=== PATIENT | female | born 1970 | race Caucasian/White ===

== ENCOUNTER → 2017-12-03 12:15 | Outpatient (CLI) | payer OTHER, SELFPAY ==
--- NOTE | 2017-12-03 12:21 | HPBI_ITS ---
MAMMOGRAPHY - BILATERAL SCREENING REASON FOR EXAM: Female, 47 years old. Routine annual screening examination. PERTINENT HISTORY: Non-contributory. TECHNIQUE: Digital bilateral breast salomon (3D mammographic acquisition) in the CC and MLO projections. 2-D mediolateral oblique (MLO) and craniocaudad (CC) views of both breasts were obtained. CAD: Full Field Digital Mammography with Computer Added Detection was performed. COMPARISON: Comparison is made with prior outside examination dated June 05, 2016. FINDINGS: Breast Composition: The breasts are heterogeneously dense, which may obscure small masses. There are no dominant masses or suspicious calcifications. No other significant abnormalities are identified. There has been no significant change since the prior study. HPBI/SCREENING MAMM (CAD), BILAT IMPRESSION: Stable bilateral screening mammogram. Yearly follow-up mammogram recommended. (A) ASSESSMENT CATEGORY: BIRADS Category 2: Benign. A letter regarding these results will be sent to the patient by the facility within 30 days. Approximately 10% of breast cancers are not detected by mammography. A normal mammogram should not delay biopsy of a clinically suspicious abnormality. [id number] Electronically Signed: Jeffery Heard MD at 13:39 EST Tel [phone], Service support ,
== END ==
PROVIDERS: Family Provider Family Medicine; PCP Family Medicine; Visit Provider Obstetrics & Gynecology
DX: Z12.31 Encounter for screening mammogram for malignant neoplasm of breast (principal)
CPT/HCPCS: 77063; 77067

== ENCOUNTER 2018-01-20 13:00 | Emergency (ER) | payer OTHER, SELFPAY ==
[2018-01-20 13:02] VITALS: BP 145/87; PULSE 92; RESP 17; RESP 19; TEMP 35.8; O2SAT 98; BMI 27.8
[2018-01-20 13:10] VITALS: BP 135/70; PULSE 85; RESP 14; O2SAT 99
--- NOTE | 2018-01-20 13:28 | VDLE_ITS ---
Reason For Study: LEG PAIN RIGHT GSV is normal. CFV is compressible, spontaneous, phasic, competent and demonstrates normal augmentation. FV is compressible, spontaneous, phasic, competent and demonstrates normal augmentation. POP V is compressible, spontaneous, phasic, competent and demonstrates normal augmentation. T/P Trunk is compressible. PTV is compressible. RT PerV is compressible. Hypoechoic structure noted medial calf extending from knee to distal calf. Non- vascular. Procedure Exam performed portable in ED. A preliminary report was called and/or faxed to Dr. Marin. Interpretation Summary There is no evidence of right lower extremity deep vein thrombosis. Right greater saphenous vein appears patent and compressible segmentally. Cystic, long, non-vascular structure extending from the medial knee to the distal calf. Ordering Physician: Tai Krishnan Referring Physician: SKYLAR Painting M.D. Performed By: Renata Valentino RVT
--- NOTE | 2018-01-20 14:49 | ED.VISSUMM ---
- ER Visit Summary Date of Service: 01/20/18 Chief Complaint: Right calf pain History of Present Illness: The patient is a 47 F presenting for evaluation secondary to right calf pain. Patient states that over the course of the last day she has noticed pain and swelling in her right calf. Patient has an underlying history rheumatoid arthritis, used to be on multiple medications, and actually took herself off of medications back last May. She states she was doing extremely well, and actually has an appointment coming up with her nurse emergency room tomorrow. Patient states that there was no injury associated with this and she denies any chest pain or shortness of breath but she did have a history of travel to and from [place] earlier in December. Patient states that her coworkers were concerned about the possibility of DVT she denies any other risk factors. Physical Examination: Vital signs within normal limits. Well-nourished female no acute distress. Heart regular rate and rhythm no murmurs normal S1 and S2. Lungs sounds clear to auscultation bilaterally. Abdomen soft. Lower extremity exam shows active full range of motion of bilateral lower extremities normal sensation over all dermatomes 2+ DP and PT pulses that are bilaterally symmetric. There is right-sided medial calf tenderness palpation with the compartment being soft but slightly swollen compared to the contralateral side. No overlying skin changes. Test Results: Duplex ultrasound shows no evidence DVT. Does show a mild fluid collection emanating from the knee going down the medial calf Emergency Department Course and Treatment: Patient presented secondary to medial calf pain and swelling. She did have recent travel she had some risk factor for DVT duplex ultrasound was negative did show fluid collection. 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 She has no signs or symptoms of infection or myositis I believe that she safely can be discharged for follow-up with rheumatology as scheduled tomorrow. Disposition: Discharge Impression: 1. Right calf pain likely due to complicated Perez's cyst This note was generated with [employer] dictation software. It may contain incorrect words, spelling, and punctuation that were not noted in review of the chart prior to signing ED Disposition - Plan for ED Patient: Disposition: Home or Assisted Living Chief Complaint: Lower Extremity Injury Diagnosis: Right calf pain Instructions: ED Cyst Perez Referrals: Colin Painting III, MD [Primary Care Provider] - As Needed
--- NOTE | 2018-01-20 14:53 | ED.DCSUM_ITS ---
- ER Visit Summary Date of Service: 01/20/18 Chief Complaint: Right calf pain History of Present Illness: The patient is a 47 F presenting for evaluation secondary to right calf pain. Patient states that over the course of the last day she has noticed pain and swelling in her right calf. Patient has an underlying history rheumatoid arthritis, used to be on multiple medications, and actually took herself off of medications back last May. She states she was doing extremely well, and actually has an appointment coming up with her nanotechnician tomorrow. Patient states that there was no injury associated with this and she denies any chest pain or shortness of breath but she did have a history of travel to and from [place] earlier in December. Patient states that her coworkers were concerned about the possibility of DVT she denies any other risk factors. Physical Examination: Vital signs within normal limits. Well-nourished female no acute distress. Heart regular rate and rhythm no murmurs normal S1 and S2. Lungs sounds clear to auscultation bilaterally. Abdomen soft. Lower extremity exam shows active full range of motion of bilateral lower extremities normal sensation over all dermatomes 2+ DP and PT pulses that are bilaterally symmetric. There is right-sided medial calf tenderness palpation with the compartment being soft but slightly swollen compared to the contralateral side. No overlying skin changes. Test Results: Duplex ultrasound shows no evidence DVT. Does show a mild fluid collection emanating from the knee going down the medial calf Emergency Department Course and Treatment: Patient presented secondary to medial calf pain and swelling. She did have recent travel she had some risk factor for DVT duplex ultrasound was negative did show fluid collection. 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 She has no signs or symptoms of infection or myositis I believe that she safely can be discharged for follow-up with rheumatology as scheduled tomorrow. Disposition: Discharge Impression: 1. Right calf pain likely due to complicated Perez's cyst This note was generated with [employer] dictation software. It may contain incorrect words, spelling, and punctuation that were not noted in review of the chart prior to signing ED Disposition - Plan for ED Patient: Disposition: Home or Assisted Living Chief Complaint: Lower Extremity Injury Diagnosis: Right calf pain Instructions: ED Cyst Perez Referrals: Colin Painting III, MD [Primary Care Provider] - As Needed
== END 2018-01-20 15:04 | disposition home or self-care (01) ==
PROVIDERS: Emergency Provider Emergency Medicine; Family Provider Family Medicine; PCP Family Medicine
DX: M71.21 Synovial cyst of popliteal space [Baker], right knee (principal); M06.9 Rheumatoid arthritis, unspecified; Z79.52 Long term (current) use of systemic steroids
CPT/HCPCS: 93971; 99282

== ENCOUNTER → 2018-11-29 16:26 | Outpatient (CLI) | payer OTHER, SELFPAY ==
[2018-11-29 13:39] VITALS: BMI 27.8
[2018-12-03 20:47] LABS: HPV APTIMA, High Risk Negative (Negative)
== END ==
PROVIDERS: Referring Provider Nurse Practitioner Women's Health; Visit Provider Nurse Practitioner Women's Health
DX: Z12.4 Encounter for screening for malignant neoplasm of cervix (principal)
CPT/HCPCS: 87624; 88175; G0145

== ENCOUNTER → 2018-12-06 13:54 | Outpatient (CLI) | payer OTHER, SELFPAY ==
[2018-11-29 13:39] VITALS: BMI 27.8
--- NOTE | 2018-12-06 13:58 | BI_ITS ---
MAMMOGRAPHY - BILATERAL DIAGNOSTIC REASON FOR EXAM: Female, 48 years old. Palpable abnormality retroareolar region of the right breast. PERTINENT HISTORY: Non-contributory. TECHNIQUE: Digital bilateral breast salomon (3D mammographic acquisition) in the CC and MLO projections. 2-D mediolateral oblique (MLO) and craniocaudad (CC) views of both breasts were obtained. CAD: Full Field Digital Mammography with Computer Added Detection was performed. COMPARISON: Comparison is made with prior mammogram dated December 03, 2017. FINDINGS: Breast Composition: The breasts are heterogeneously dense, which may obscure small masses. 1 segment, there is evidence of a femoral glandular tissue in both retroareolar region slightly asymmetrical on the right side. With the patient's history of a palpable abnormality in the right breast, correlation with ultrasound is recommended. No other significant abnormalities are identified. BI/DIAG MAMM W/CAD, BILAT IMPRESSION: Dense retroareolar region of the right breast. Correlation with ultrasound is recommended. ASSESSMENT CATEGORY: BIRADS Category 0: Incomplete. Need additional imaging evaluation. A letter regarding these results will be sent to the patient by the facility within 30 days. Approximately 10% of breast cancers are not detected by mammography. A normal mammogram should not delay biopsy of a clinically suspicious abnormality. Electronically Signed: Jeffery Heard MD at 15:48 EST , Service support ,
--- NOTE | 2018-12-06 13:58 | US_ITS ---
STUDY: ULTRASOUND BREAST - RIGHT REASON FOR EXAM: Female, 48 years old. Palpable lump in the right breast. TECHNIQUE: Axial and longitudinal images of the RIGHT breast were performed with a high resolution ultrasound transducer. COMPARISON: Comparison is made with prior mammogram done earlier in the day. FINDINGS: RIGHT Breast: The palpable abnormality corresponds to a 6 mm x 12 mm x 12 mm hypoechoic irregular nodule in the retroareolar region of the breast. A biopsy is recommended. US/Breast Limited Unilateral IMPRESSION: The palpable abnormality corresponds to a 6 mm x 12 mm x 12 mm irregular hypoechoic solid nodule. A biopsy is recommended. ASSESSMENT CATEGORY: BIRADS Category 5: Highly Suggestive of Malignancy - Appropriate Action Should Be Taken. A letter regarding these results will be sent to the patient by the facility within 30 days. Electronically Signed: Jeffery Heard MD at 15:47 EST , Service support ,
== END ==
PROVIDERS: Referring Provider Nurse Practitioner Women's Health; Visit Provider Nurse Practitioner Women's Health
DX: N63.10 Unspecified lump in the right breast, unspecified quadrant (principal)
CPT/HCPCS: 76642; 77062; 77066; G0279

== ENCOUNTER → 2018-12-13 14:15 | Outpatient (CLI) | payer OTHER, SELFPAY ==
--- NOTE | 2018-12-13 | IMM_PTH ---
PATIENT: THUY PATTERSON LOC: [facility] U#:[id number] AGE/SX: 55/F ROOM: RE12/13/[address]: Dr. Travis Painting MD : 1970 BED: DIS: SPEC #: [id number] RECD: 12/14/18 14:03 STATUS: ROBBY REQ #: [id number] VADIM: 12/13/18 00:[address]: Travis Painting DEPT: IMMUNOHISTOCHEMISTRY RECD BY: April Ewing ENTERED: 12/14/18 14:05 SP TYPE: IMMUNO OTHR DR: No Primary Care Phys Tissues: Right breast, NOS Procedures: CALPONIN-1 (add) CK5-6 (add) CK8 (add) E-CAD (add) HER2 REGI (add) KI-67 (add) P53 (add) CO (add) IN SITU HYBRIDIZATION P40 (add) ER (initial) PHYSICIAN & INSTITUTION [address] [address] SPECIMEN INFORMATION: Tissue Source: Right breast Clinical Info: Abnormal right breast ultrasound Specimen Number: [id number] CPT code: 06589, 88553 x6, 11201 x3 METHODOLOGY: Deparaffinized sections of prefer/formalin-fixed tissue or PAP/DQ stained slides are incubated with monoclonal/polyclonal antibodies/oligonucleotide probes. Localization is made via biotin free immunoperoxidase method. Appropriate controls are performed and reacted as expected. Results on target cell population are indicated in the following table: RESULTS: ANTIBODY / CLONE RESULT E-Cad (ECH-6) positive, focal CK8 (72rituS36) positive CK5-6 (D5 & 1684) negative Ki-67 (30-9) positive, low P53 (DO-7) negative P40 (BC28) negative Calponin-1 (UH151F) negative MORPHOMETRIC ANALYSIS ER (clone 6F11) >95%, moderate CO (clone 16/1E2) 24%, weak Her-2Neu (clone CB11) 2+ The prognostic test for HER2 is performed on formalin-fixed paraffin embedded tissue. A 3+ (positive) staining pattern is defined as intense, homogeneous, complete, circumferential membranous staining in >10% of contiguous tumor cells. A similar weak (2+) staining pattern is interpreted as equivocal. LEIDY follow-up testing is recommended for all equivocal cases. Positivity/negativity for ER/CO is reported if > or < 1% of the tumor cells are immuno- reactive, respectively. The ASCO/CAP criteria is used for scoring. Reference: Journal of Clinical Oncology, 2013; 31:1720-3467 & 2010; 16:4284-8619. Duration of fixation: 7.5 Hrs; Sample Adequate: Yes. These assays have not been validated on decalcified tissues. Results should be interpreted with caution given the likelihood of false negativity on decalcified specimens. These tests were developed and their performance characteristics determined by [facility]. They may not have been cleared or approved by the U.S. Food and Drug Administration. The FDA has determined that such clearance or approval is not necessary. 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 Positive for estrogen receptors (favorable prognostic indicator). Positive for progesterone receptors (favorable prognostic indicator). Equivocal for overexpression of TAA8efg. SJ:jeromy 12/15/18 ADDENDUM ADDENDUM ADDENDUM ADDENDUM ADDENDUM ADDENDUM ADDENDUM ADDENDUM ADDENDUM ADDENDUM ADDENDUM ADDENDUM ADDENDUM ADDENDUM ADDENDUM ADDENDUM ADDENDUM ADDENDUM ADDENDUM ADDENDUM ADDENDUM ADDENDUM ADDENDUM 12/16/2018 12:08 ADDENDUM 12/16/2018 12:08 ADDENDUM 12/16/2018 12:08 ADDENDUM 12/16/2018 12:08 ADDENDUM 12/16/2018 12:08 IN SITU HYBRIDIZATION (LEIDY) FOR HER2 Interpretation: Not Amplified HER2 : CEP-17 Ratio: 1.3 Average HER2 Signal: 2.1 Average CEP-17 Signal: 1.65 Number of Tumor Cells Scanned: 50 Interpretative Information: The INFORM HER2 Dual LEIDY DNA Probe Cocktail assay is performed on formalin-fixed paraffin embedded tissue and determines HER2 gene status by detecting HER2 copies via silver in situ hybridization (SISH) and Chromosome 17 copies via chromogenic red in situ hybridization on tumor cells. A minimum of 20 cells representing > 10% of contiguous and homogeneous invasive tumor cells were analyzed. HER2 gene status is classified as Non-amplified (HER2/Chr17 ratio < 2.0) or Amplified (HER2/Chr17 ratio greater than or equal to 2.0). If the resulting HER2/Chr17 ratio falls within 1.8 - 2.2 (Borderline), retesting by FISH is recommended. Reference: Josefina AC, Ruben EDGAR, Link DG, et al: Recommendations for Human Epidermal Growth Factor Receptor 2 Testing in Breast Cancer: [place] [employer] / [employer] Clinical Practice Guideline Update. J Clin Oncol 31:9391-2327, 2013. SJ:jeromy 12/16/18
--- NOTE | 2018-12-13 13:20 | BRBX_PTH ---
PATIENT: THUY PATTERSON [facility] U#:[id number] AGE/SX: 55/F ROOM: RE12/13/[address]: Dr. 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 See comment. KAYLEE:jeromy 12/14/18 COMMENT Immunohistochemistry ([id number]) supports the above diagnosis. ER/MS/Ecw9gdv studies are being performed on sections of tumor and the results from this study will be reported separately ([id number]). MICROSCOPIC DESCRIPTION Slides are reviewed. GROSS DESCRIPTION Received in fixative is one container labeled with the patient's name and designated right breast. The specimen consists of two elongated fragments of devries soft tissue each measuring 1 cm in length and 0.1 cm in diameter. The specimen is totally submitted in one cassette. / KAYLEE:jeromy 12/13/18 TC:0 CPT: 39443
[2018-12-13 13:30] VITALS: BMI 27.8
== END ==
PROVIDERS: Referring Provider Surgery; Visit Provider Surgery
DX: R92.8 Other abnormal and inconclusive findings on diagnostic imaging of breast (principal)
CPT/HCPCS: 88305; 88341; 88342; 88368

== ENCOUNTER 2018-12-28 08:24 | Day surgery (SDC) | payer OTHER, SELFPAY ==
[2018-12-15 14:07] VITALS: BMI 27.8
--- NOTE | 2018-12-28 | AXNB_PTH ---
PATIENT: THUY PATTERSON [place]: [facility] [place][id number] AGE/SX: 48/F ROOM: RE12/28/[address]: Dr. Travis Painting MD : 1970 BED: DIS: 12/28/2018 SPEC #: [id number] RECD: 12/28/18 11:55 STATUS: ROBBY JENNA #: [id number] VADIM: 12/28/18 00:[address]: Travis Painting DEPT: SURGICAL PATHOLOGY RECD BY: April Ewing ENTERED: 12/28/18 12:59 SP TYPE: AX NODE BX OTHR DR: No Primary Care Phys Tissues: A - Axillary lymph node, NOS B - Right breast, NOS C - Axillary tail of breast D - Right breast, NOS Procedures: Frozen Section (charge) Frozen Section Add'l ([facility]) Surgery Specimen Level IV Surgery Specimen Level V HEADER OPERATION: Right breast ultrasound wire-localized lumpectomy, right axillary dissection PRE-OP DIAGNOSIS: Malignant neoplasm of central portion of right breast TISSUE SUBMITTED: A - [place] lymph nodes, right - sent to lab for frozen at 1150, B - Right breast lumpectomy - sent to lab for margins at 1209, long blue suture - anterior, long black suture - lateral (wire also lateral), short black suture - superior, C - Right axillary dissection, D - Re-excision inferior margin right breast, suture serrato new margin FROZEN SECTION DIAGNOSIS A. Right axillary sentinel lymph nodes, biopsy: Two out of two lymph nodes positive for macrometastatic carcinoma. AM:jeromy 12/28/18 MICROSCOPIC DIAGNOSIS A. Right axillary lymph nodes, biopsy: Two out of two lymph nodes, positive for metastatic carcinoma. See comment. B. 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 See cancer summary below. C. Right axillary dissection: Three out of eight lymph nodes, positive for metastatic carcinoma. See comment. D. Re-excision inferior margin: Negative for carcinoma. SJ:jeromy 12/30/18 INVASIVE BREAST CANCER SUMMARY: (Including specimens A to D) Specimen - partial breast Procedure - excision with wire-guided localization Lymph node sampling - sentinel lymph node and axillary dissection Specimen integrity - multiple designated specimens (specimen B & D) Specimen size - lumpectomy specimen 4.5 x 3.5 x 3 cm Re-excision inferior margin - 5 x 3 x 1 cm Specimen laterality - right Tumor site - central portion of the right breast as per clinical information. Tumor size - 1.5 x 1.5 x 1.2 cm Tumor focality - single focus of invasive carcinoma Macroscopic and Microscopic extent of tumor: Skin - not present Nipple - not applicable Skeletal muscle - not present Ductal carcinoma in situ (DCIS) - no DCIS is present. Lobular carcinoma in situ (LCIS) - present Histologic type of invasive carcinoma - invasive carcinoma with ductal and lobular features (mixed type carcinoma). Histologic Grade (Karine grade): Glandular/tubular differentiation - score 3 Nuclear pleomorphism - score 3 Mitotic count - score 1 Overall grade - 2 (score of 7) Margins - Margins uninvolved by invasive carcinoma. The invasive carcinoma and lobular carcinoma in situ is 0.2 cm away from the inferior margin in lumpectomy specimen. Re-excision inferior margin measures 1 cm in thickness, overall the tumor is about 1.2 away from the inferior margin. The invasive carcinoma and lobular carcinoma in situ is 0.1 cm away from the anterior margin in lumpectomy specimen. Treatment effect: Response to presurgical (neoadjuvant) therapy - no known presurgical therapy. Lymph-Vascular invasion - not identified Dermal lymph-vascular invasion - not applicable Lymph nodes: Number of sentinel lymph nodes examined - 2 Total number of lymph nodes examined (sentinel and nonsentinel) - 10 Number of lymph nodes with macrometastases - 5 Number of lymph nodes with micrometastases and isolated tumor cells - 0 Size of largest metastatic deposit - 1.1 x 1.0 cm (measured microscopically). Extranodal extension - present, focal Method of evaluation of sentinel lymph nodes - H & E and multiple levels. Distant metastasis - not applicable Additional pathologic findings - extensive dense fibrosis and intraductal hyperplasia. Ancillary studies - previously performed on section of tumor ([id number] / [id number]). ER - positive (>95%, moderate) IN - positive (24%, weak) Her2 izzy - equivocal (2+) Her2 by dual LEIDY - negative/not amplified Microcalcifications - not identified Clinical history - Please make reference to previous specimen ([id number]) right breast tissue, core biopsy with diagnosis of invasive mammary carcinoma with ductal and lobular features. PATHOLOGIC STAGE: pT1c pN2a Mx The above summary is in compliance with [employer] (CAP) Cancer Protocols Checklist and [place] [employer] Committee on Cancer (AJCC), Staging Manual, 8th Ed. COMMENT A. The largest focus of metastatic deposit measures 1.1 x 1 cm, measured microscopically. Focal minimal extranodal extension is noted. B. Immunohistochemistry ([id number]) supports the diagnosis of invasive carcinoma with mixed ductal and lobular features and lobular carcinoma in situ. The tumor predominantly consists of invasive lobular carcinoma (>95%), pleomorphic variant. C. The largest focus of metastasis measures 0.8 x 0.7 cm, measured microscopically. Extranodal extension is not seen. Immunohistochemistry ([id number]) supports the above diagnosis. Case has been reviewed in consultation with Dr. Feliz who concurs with the above diagnosis. IDC:AM MICROSCOPIC DESCRIPTION Slides are reviewed. GROSS DESCRIPTION A - Received fresh for frozen section diagnosis labeled with the patient's name is a specimen designated sentinel lymph node. The specimen consists of a piece of adipose tissue containing two nodules measuring 3.5 x 2.5 x 0.6 cm. Two nodules consistent with lymph nodes are identified measuring 1 and 1.5 cm in greatest dimension. The entire specimen is submitted in four cassettes as follows: 1 - frozen section, one-half smaller lymph node, 2 - frozen section, one-half larger lymph node, 3 - rest of the smaller lymph node, 4 - rest of the larger lymph node. / AM:jeromy 12/29/18 B - Received fresh for frozen section diagnosis labeled with the patient's name is a specimen designated right breast lumpectomy. The specimen consists of a piece of fibroadipose tissue weighing 20.4 gm and measuring 4.5 x 3.5 x 3 cm. The specimen is oriented as follows: long blue - anterior, long black - lateral, wire also lateral, short black - superior. The specimen is inked as follows: anterior - yellow, posterior - black, superior - blue, inferior - green, medial - red and lateral - orange. The specimen is serially sectioned and reveals a devries, indurated mass measuring 1.5 x 1.5 x 1.2 cm. This mass is 0.2 cm away from the closest inferior margin. This information is conveyed to the surgeon intraoperatively. Initial processing of the specimen is done by Dr. Feliz. The entire specimen is submitted in 15 cassettes. Cassettes 2 to 7 contain the tumor with surrounding tissue including closest margin. / :jeromy 12/29/18 C - Received in fixative is one container labeled with the patient's name and designated right axillary dissection. The specimen consists of two pieces of yellow adipose tissue measuring in aggregate 7 x 6 x 2 cm. Multiple lymph nodes are identified. The largest lymph node measures 1.5 cm in greatest dimension. The lymph nodes are submitted in entirety in six cassettes as follows: 1 - one bisected lymph node, 2 - one bisected lymph node (cassettes 1 & 2 contains the lymph nodes present in the smaller piece of tissue), 3 - one serially sectioned lymph node, largest lymph node, 4 - one bisected lymph node, 5 - one bisected lymph node, 6 - three lymph nodes. / SJ:jeromy 12/29/18 D - Received in fixative is one container labeled with the patient's name and designated re-excision inferior margin right breast, suture serrato new margin. The specimen consists of a piece of fibroadipose tissue measuring 5 x 3 x 1 cm. The new margin is identified by a suture. This margin is inked black and opposite side is inked blue. Sections do not reveal any mass lesion. The entire specimen is submitted in five cassettes. / :jeromy 12/29/18 TC:0 CPT: 44670, 43974 x3, 20452, 42648, 48281 ADDENDUM ADDENDUM ADDENDUM ADDENDUM ADDENDUM ADDENDUM ADDENDUM ADDENDUM ADDENDUM ADDENDUM ADDENDUM ADDENDUM ADDENDUM ADDENDUM 01/26/2019 10:10 ADDENDUM 01/26/2019 10:10 ADDENDUM 01/26/2019 10:10 ADDENDUM 01/26/2019 10:10 ADDENDUM 01/26/2019 10:10 This addendum is added to incorporate an outside pathology consultation report. The case was examined at [facility] (#[id number]) and the following diagnosis was rendered. A. Right axillary sentinel lymph nodes, excision: Two lymph nodes with metastatic carcinoma. B. Right breast, lumpectomy: Invasive carcinoma with ductal and lobular features and lobular carcinoma in situ. C. Right axilla, dissection: Three of eight lymph nodes with metastatic carcinoma. Please see complete above mentioned consultation report in EMR
--- NOTE | 2018-12-28 | IMM_PTH ---
PATIENT: THUY PATTERSON LOC: [facility] – [place] U#:[id number] AGE/SX: 48/F ROOM: RE12/28/[address]: Dr. Travis Painting MD : 1970 BED: DIS: 12/28/2018 SPEC #: [id number] RECD: 12/30/18 13:14 STATUS: ROBBY RELencho #: [id number] VADIM: 12/28/18 00:[address]: Travis Painting DEPT: IMMUNOHISTOCHEMISTRY RECD BY: April Ewing ENTERED: 12/30/18 13:16 SP TYPE: IMMUNO OTHR DR: No Primary Care Phys Tissues: B - Right breast, NOS C - Axillary lymph node, NOS Procedures: CK8 (initial) CALPONIN-1 (add) CK7 (add) CK8 (add) E-CAD (add) Pankeratin (initial) Pankeratin (add) P40 (add) PHYSICIAN & INSTITUTION [place] [id number] SPECIMEN INFORMATION: Tissue Source: B - Right breast lumpectomy, C - Right axillary dissection Clinical Info: Malignant neoplasm of right breast Specimen Number: [id number] B3, B4, C1-C6 CPT code: 13990 x2, 43907 x18 METHODOLOGY: Deparaffinized sections of prefer/formalin-fixed tissue or PAP/DQ stained slides are incubated with monoclonal/polyclonal antibodies/oligonucleotide probes. Localization is made via biotin free immunoperoxidase method. Appropriate controls are performed and reacted as expected. Results on target cell population are indicated in the following table: RESULTS: ANTIBODY / CLONE RESULT Block B3 CK8 (55cepbV20) positive E-Cad (ECH-6) negative * P40 (BC28) negative Calponin-1 (ER583D) negative *?positive focally in invasive ductal carcinoma Block B4 CK8 ([id number]) positive E-Cad (ECH-6) negative P40 (BC28) negative Calponin-1 (DL426Z) negative positive in the area of lobular carcinoma in situ Block C1 AE1-3 (AE1/AE3/PCK26) negative CK7 (OV-TL12/30) negative Block C2 AE1-3 (AE1/AE3/PCK26) negative CK7 (OV-TL12/30) negative Block C3 AE1-3 (AE1/AE3/PCK26) positive CK7 (OV-TL12/30) positive Block C4 AE1-3 (AE1/AE3/PCK26) positive CK7 (OV-TL12/30) positive Block C5 AE1-3 (AE1/AE3/PCK26) negative CK7 (OV-TL12/30) negative Block C6 AE1-3 (AE1/AE3/PCK26) positive CK7 (OV-TL12/30) positive These tests were developed and their performance characteristics determined by [facility]. They may not have been cleared or approved by the U.S. Food and Drug Administration. The FDA has determined that such clearance or approval is not necessary. INTERPRETATION: B. Right breast lumpectomy: Invasive carcinoma with ductal and lobular features (mixed type carcinoma). See comment. - lobular carcinoma in situ. C. Right axillary dissection: Three out of eight lymph nodes positive for metastatic carcinoma. SJ:jeromy 12/31 Comment: The tumor predominantly consists of lobular carcinoma (>95%). Case has been reviewed in consultation with Dr. Feliz who concurs with the above diagnosis. IDC:AM
--- NOTE | 2018-12-28 08:00 | NM_ITS ---
PROCEDURE: NUCLEAR MEDICINE Injection [place] Node - RIGHT breast(s). REASON FOR EXAM: Female, 48 years old. Right breast cancer. TECHNIQUE: [place] node localization using radionuclide methods of the RIGHT breast(s) was performed following subcutaneous administration of 1.2 mCi of of sulfur colloid Tc-99m. FINDINGS: 1.2 mCi of technetium labeled sulfur colloid was injected in 4 equal aliquots subcutaneously in the slightly inferior lateral aspect of the right breast. NM/Lymph Node Injection Only IMPRESSION: Subcutaneous injection of 1.2 mCi of technetium labeled sulfa colloid for sentinel node imaging. Electronically Signed: Jeffery Heard, at 9:57 EDT , Service support ,
[2018-12-28 09:00] VITALS: BP 122/95; PULSE 79; RESP 18; TEMP 36.9; O2SAT 100; BMI 24.2
--- NOTE | 2018-12-28 10:39 | PCM.DC.BS ---
Discharge Diet: No Restrictions Discharge Activity: May Not Drive - for 2-3 days or while taking narcotic pain meds. May shower in (days): 5 Lifting Restrictions: 10 pounds for 1 week. Call your doctor if your incision/area has: Continuous Slow Oozing, Sudden Increased Bleeding Call your doctor if you observe: Fever of 101 or Higher Suture Line Care: Avoid Pulling/Pushing, Avoid Pinching/Bending Remove Dressing in (days):: 1 - Drain care as instructed. Empty and measure and record output. You may not shower until the drain is removed Additional Dressing/Incision Instructions:: Remove bulky dressing tomorrow. May leave any opsite dressing for 3 days. May remove the steri strips after one week please. Please clean the drain site daily with a Q-tip and peroxide and subsequently apply dry gauze and tape Allergies/Adverse Reactions: Allergies No Known Allergies Allergy (Verified 12/27/18 13:46) Medications to take at Discharge prednisone 10 mg tablet 5 mg PO DAILY 11/02/17 calcium carbonate 600 mg calcium (1,500 mg) tablet 600 mg PO DAILY tab 11/29/18 certolizumab pegol 400 mg/2 mL (200 mg/mL x2) subcutaneous syringe kit 400 mg SC Q2W 11/29/18 leflunomide 20 mg tablet 20 mg PO DAILY 11/29/18 multivitamin tablet 1 tab PO DAILY 11/29/18 Hydrocodone Bitart/Apap 5-325 [[place] 5MG-325MG] 1 tablet PO Q4H PRN PRN 2 Days #8 tablet 12/28/18 The following prescriptions were given: Hydrocodone Bitart/Apap 5-325 [[place] 5MG-325MG] 1 tablet PO Q4H PRN PRN 2 Days #8 tablet PRN Reason: Pain Primary Care Physician: Care Physician,No Primary [Primary Care Provider] - Please Follow Up With: Travis Painting MD When: Office appt. Thursday please. [phone]
[2018-12-28] MEDS: Isosulfan Blue 1% 5 ML Vial (11:20)
[2018-12-28] MEDS: Bupivacaine 0.5% PF 10 ML VIAL (13:00)
--- NOTE | 2018-12-28 13:11 | PCM.OPRPT ---
Problem List (1) Breast mass, right Status: Acute Report of Operation Date of Procedure: 12/28/18 Pre-Operative Diagnosis: Upper outer retroareolar right breast invasive ductal and lobular carcinoma Post-Operative Diagnosis: Same plus macro metastatic disease to right axillary sentinel lymph nodes Surgery/Procedure Performed:: Ultrasound-guided wire localization right breast mass. Right axillary Kavon dye and lymphatic tracer sentinel lymph node biopsy with subsequent post pathology conversion to level 1and 2 right axillary lymph node dissection. Wire localized right breast lumpectomy with reexcision of inferior margin Description of Surgical Findings:: 48-year-old female was taken to the operating room. She was placed on the table underwent general anesthesia. The right arm was carefully wrapped with soft roll and placed at right angles to the table. She had already gone radioactive tracer injection per radiology. The right breast was prepped with alcohol and 2-1/2 cc of isosulfan blue dye was injected close to the retroareolar area. Massage was performed for 3 minutes. Then the right breast and axilla were sterilely prepped and draped. An oblique incision was made in the right axilla sharp dissection carried down through the subtenons tissue. Immediately blue dye lymphatic tracking was identified. The neoprobe did not assist with this identification although a bright blue lymph node was identified there was 0 counts on the tracer. I dissected to lymph nodes free submitted those for analysis. I then utilized ultrasound and a 20-gauge Kopans needle to do wire localization of the retroareolar slightly upper outer right breast lesion. The needle was inserted under ultrasound guidance and the wire was displaced. Now a curvilinear incision was made in the upper outer right breast sharp dissection carried down through the substance tissue dissection was performed retrogradely shaving healthy dermal skin of the areola was able to circumferentially dissect completely around the lesion and excise it. The wire exited laterally and I placed a long silk suture laterally. A short silk suture was placed superiorly. The blue Vicryl which I used as a holding suture exited anteriorly. Upon receiving gross analysis of that lumpectomy it was felt to be a 2 mm inferior margin. I elected to re-excise the inferior margin and I did that with electrocautery. I marked the new margin with a silk suture. That lumpectomy site was closed the deep layer of interrupted 4-0 Vicryl. Skin edges proximal running subcuticular 4.0 Monocryl. The 2 sentinel nodes were noted to have a macro metastatic disease completely replacing the nodes. I elected to proceed to a level 1 and 2 axillary lymph node dissection. The incision was slightly lengthened. I dissected through the axillary fascia identified the axillary vein took tissue bounded by the latissimus dorsi and the subscapularis chest wall and the axillary vein. Carefully the tissue was swept inferiorly hemostasis obtained with hemoclips and electrocautery were indicated. The intercostal brachial cutaneous nerve to the upper arm was identified and carefully dissected free and completely preserved. There was some additional lymph nodes located more laterally that were carefully dissected free. These have been adjacent to the original lymph node packet. Hemostasis was then assured. Stab incision was made inferior to the wound and a 10 round MARY drain was exited. It was shortened the length. Was secured to skin with interrupted 3-0 nylon. Was placed to closed bulb suction. That wound was closed with a deep layer of interrupted 3-0 Vicryl and then a running subcuticular 4-0 Monocryl. Steri-Strips and Telfa and OpSite and bulky dry dressings were applied. Sponge and instrument and needle counts were reported to the surgeon to be correct. Specimen includes the right breast lumpectomy specimen with a reexcision of the inferior margin as a separate piece. Specimen includes sentinel lymph nodes x2 followed up by a completion right axillary lymph node dissection. Drain is a 10 round MARY drain to the right axilla. Blood loss minimal. Travis Painting M.D., F.A.C.S. Type of Anesthesia:: General Anesthesiologist: Gabriela Ramirez
[2018-12-28 13:21] VITALS: BP 122/95; BP 93/68; PULSE 73; RESP 16; TEMP 36.3; O2SAT 96
[2018-12-28 13:30] VITALS: BP 122/95; BP 98/63; PULSE 70; RESP 16; O2SAT 95
[2018-12-28 13:45] VITALS: BP 122/95; BP 97/68; PULSE 70; RESP 16; O2SAT 96
[2018-12-28 13:54] VITALS: BP 122/95; BP 98/67; PULSE 72; RESP 16; TEMP 36.2; O2SAT 96
[2018-12-28 15:53] VITALS: BP 100/67; BP 122/95; PULSE 78; RESP 16; TEMP 37.2; O2SAT 97
== END 2018-12-28 15:57 | disposition home or self-care (01) ==
LOC: SDC 08:26 → AC 08:27
PROVIDERS: Referring Provider Surgery; Visit Provider Surgery
PROC: (CPT 19301; principal; 2018-12-28 10:45)
DX: C50.411 Malignant neoplasm of upper-outer quadrant of right female breast (principal); C50.111 Malignant neoplasm of central portion of right female breast; Z17.0 Estrogen receptor positive status [ER+]; Z78.0 Asymptomatic menopausal state; Z79.52 Long term (current) use of systemic steroids; Z79.899 Other long term (current) drug therapy
CPT/HCPCS: 19302; 38792; 88305; 88307; 88331; 88332; 88341; 88342; A9541; J7120; J2405; Q9968

== ENCOUNTER 2019-02-02 11:23 | Day surgery (SDC) | payer OTHER, SELFPAY ==
[2019-02-02 11:45] VITALS: BP 110/69; PULSE 83; RESP 18; TEMP 36.6; O2SAT 99; BMI 24.3
[2019-02-02] MEDS: Cefazolin 2 GM in 0.9% Normal Saline 100 ML IV (14:59)
[2019-02-02] MEDS: Bupivacaine Mpf 0.5% 30 ML VIAL (15:08)
--- NOTE | 2019-02-02 15:37 | PCM.DC.POR ---
Discharge Diet: No Restrictions - Pain medication may cause nausea. You should typically eat light foods as you take your pain medication. Discharge Activity: Return to Normal Activity, May Shower - Leave the bandage on for 2-3 days. When you remove the bandage, leave the steri-strips intact until they fall off. Additional Activity Instructions:: May not drive, work with heavy equipment, or sign legal documents for [address] if you are no longer taking narcotic pain medications. Additional Dressing/Incision Instructions:: Leave the bandage on for 2-3 days. When you remove the bandage, leave the steri-strips intact for one week Allergies/Adverse Reactions: Allergies No Known Allergies Allergy (Verified 02/02/19 11:43) Medications to take at Discharge prednisone 10 mg tablet 5 mg PO DAILY 11/02/17 calcium carbonate 600 mg calcium (1,500 mg) tablet 600 mg PO DAILY tab 11/29/18 multivitamin tablet 1 tab PO DAILY 11/29/18 Primary Care Physician: Care Physician,No Primary [Primary Care Provider] - Test Results: Test results from this visit will be discussed in further detail at your follow-up appointment, if applicable. Please Follow Up With: Travis Painting MD - [phone] When: Further office follow up can be as needed
--- NOTE | 2019-02-02 15:40 | DCINST_ITS ---
Discharge Diet: No Restrictions - Pain medication may cause nausea. You should typically eat light foods as you take your pain medication. Discharge Activity: Return to Normal Activity, May Shower - Leave the bandage on for 2-3 days. When you remove the bandage, leave the steri-strips intact until they fall off. Additional Activity Instructions:: May not drive, work with heavy equipment, or sign legal documents for [address] if you are no longer taking narcotic pain medications. Additional Dressing/Incision Instructions:: Leave the bandage on for 2-3 days. When you remove the bandage, leave the steri-strips intact for one week Allergies/Adverse Reactions: Allergies No Known Allergies Allergy (Verified 02/02/19 11:43) Medications to take at Discharge prednisone 10 mg tablet 5 mg PO DAILY 11/02/17 calcium carbonate 600 mg calcium (1,500 mg) tablet 600 mg PO DAILY tab 11/29/18 multivitamin tablet 1 tab PO DAILY 11/29/18 Primary Care Physician: Care Physician,No Primary [Primary Care Provider] - Test Results: Test results from this visit will be discussed in further detail at your follow- up appointment, if applicable. Please Follow Up With: Travis Painting MD - [phone] When: Further office follow up can be as needed
--- NOTE | 2019-02-02 15:40 | PCM.OPRPT ---
Problem List (1) Breast cancer metastasized to axillary lymph node Status: Acute Qualifiers: Laterality: right Qualified Code(s): C50.911 - Malignant neoplasm of unspecified site of right female breast; C77.3 - Secondary and unspecified malignant neoplasm of axilla and upper limb lymph nodes Report of Operation Date of Procedure: 02/02/19 Pre-Operative Diagnosis: Metastatic right breast cancer Post-Operative Diagnosis: Same Surgery/Procedure Performed:: Left internal jugular 6 Venezuelan power port placement Description of Surgical Findings:: Timeout and informed consent was obtained. 48-year-old female was taken to the operating room placed upon the table. Ancef 2 g were given intravenously. The left neck and chest were sterilely prepped and draped. Under ultrasound guidance the left internal jugular vein was identified. 1% lidocaine mixed 50-50 with 0.5% Marcaine was used as a local anesthetic. Throughout the procedure a total of 80 cc was used. Micropuncture needle was inserted in the left internal jugular vein under ultrasound guidance. Micropuncture wire inserted. A micropuncture sheath inserted. 035 J-wire was inserted. Fluoroscopy demonstrated good positioning of the SVC. Local was instilled down upon the right chest wall. A transverse incision was created. A subcutaneous pocket was created. The tubing was tunneled from the chest to the neck site. Then the 6 [place] sheath dilator was placed over the J-wire. The dilator wire removed. The tubing was advanced through the sheath. The sheath was split. The catheter tubing was positioned at the SVC atrial junction. It was amputated to length connected to the port secured there with a port attachment device. The port was placed in the pocket and secured there with interrupted 2-0 silk. The port site was closed with interrupted 3-0 Vicryl subdermal stitch. The neck site was closed with interrupted 5-0 Vicryl subdermal stitch. The port was accessed with a straight Bal needle. It aspirated easily. It was flushed with saline and then 2 cc of heparinized saline. Steri-Strips Telfa and OpSite dressings applied. Sponge and instrument and needle counts were reported the surgeon be correct. Blood loss was minimal. Specimens none. Drains none. Blood loss minimal. The patient was taken to the recovery area in satisfactory condition without apparent complication. Travis Painting M.D., F.A.C.S. Type of Anesthesia:: Local MAC Anesthesiologist: Gabriela Ramirez
[2019-02-02 15:46] VITALS: BP 100/77; BP 110/69; PULSE 77; RESP 16; TEMP 36.9; O2SAT 97
[2019-02-02 15:50] VITALS: BP 107/79; BP 110/69; PULSE 77; RESP 16; O2SAT 98
[2019-02-02 15:55] VITALS: BP 105/75; BP 110/69; PULSE 71; RESP 16; O2SAT 96
--- NOTE | 2019-02-02 16:00 | RAD_ITS ---
STUDY: X-RAY CHEST REASON FOR EXAM: Female, 48 years old. Left IJ port placement. TECHNIQUE: Single AP portable view of the chest. COMPARISON: None. FINDINGS: There is a left jugular [id number] with its tip in the distal superior vena cava. There is no pneumothorax. The lungs are clear and expanded. There is no demonstrated pleural abnormality. Normal size heart. Normal mediastinum and idalia. Normal visualized pulmonary arteries. Normal visualized aortic arch and descending thoracic aorta. Normal visualized thoracic spine. Normal visualized ribs, clavicles, and shoulders. There is no demonstrated abnormality of the visualized soft tissue structures of the upper abdomen. RAD/Chest 1 View (Portable) IMPRESSION: 1. Left jugular Port-A-Cath without pneumothorax. 2. No acute cardiopulmonary disease. Electronically Signed: Phani Amin DO at 16:12 EDT Tel [phone], Service support ,
[2019-02-02 16:02] VITALS: BP 110/69; BP 111/80; PULSE 74; RESP 16; TEMP 37.1; O2SAT 98
[2019-02-02 16:30] VITALS: BP 110/69
== END 2019-02-02 16:41 | disposition home or self-care (01) ==
LOC: SDC 11:24 → AC 11:25
PROVIDERS: Referring Provider Surgery; Visit Provider Surgery
PROC: (CPT 36561; principal; 2019-02-02 13:15)
DX: Z45.2 Encounter for adjustment and management of vascular access device (principal); C50.911 Malignant neoplasm of unspecified site of right female breast; C77.3 Secondary and unspecified malignant neoplasm of axilla and upper limb lymph nodes; Z79.899 Other long term (current) drug therapy; Z79.52 Long term (current) use of systemic steroids; M06.9 Rheumatoid arthritis, unspecified
CPT/HCPCS: 00532; 36561; 71045; 77001; J7120; J2405

== ENCOUNTER 2019-10-17 05:28 | Day surgery (SDC) | payer OTHER, SELFPAY ==
[2019-09-24 08:43] VITALS: BMI 24.3
[2019-10-17] VITALS (11 sets, daily range): BP systolic 107–124; BP diastolic 76–100; PULSE 70–94; RESP 16; TEMP 36–36.4; O2SAT 93–98; BMI 26.7
[2019-10-17] MEDS: Lactated Ringers 1,000 ML 100 ML IV (05:58)
--- NOTE | 2019-10-17 06:17 | PCM.HP.STD ---
Problem List (1) Screening for intestinal cancer Status: Acute History of Present Illness Date of Admission: 10/17/19 The patient is a 49 year old F who has recently undergone intensive surgical and medical treatment for breast cancer. She has never had a previous screening colonoscopy. She presents for screening exam at this time. She denies bright red blood per rectum or melena. No abdominal pain. There is no family history of colon cancer. Past Medical History Past Medical History (Chronic Problems): Chronic Problems (Last Reviewed 01/26/19 @ 16:05 by Yessi Mcmahon) Rheumatoid arthritis (Chronic) Medical History: Medical History (Last Reviewed 01/26/19 @ 16:05 by Yessi Mcmahon) Breast cancer metastasized to axillary lymph node (Acute) C50.919, C77.3 Rheumatoid arthritis (Chronic) M06.9 Breast cancer, right breast C50.911 Allergies No Known Allergies Allergy (Verified 10/13/19 11:38) Home Medications: Ambulatory Orders Medication Instructions Recorded prednisone 10 mg tablet 2.5 mg PO BID 11/02/17 multivitamin 1 tab PO DAILY 11/29/18 Anastrozole 1 mg PO DAILY 10/13/19 Ferrous Sulfate [Iron] 325 mg PO DAILY 10/13/19 Hydroxychloroquine Sulfate 200 mg PO BID 10/13/19 [Plaquenil] Surgical History: Surgical History (Last Reviewed 01/26/19 @ 16:05 by Yessi Mcmahon) History of tonsillectomy (Acute) Z98.890, Z90.89 Status post right breast lumpectomy Onset Date: ~12/2018 Z98.890 Smoking Status: Never smoker Review of Systems Constitutional: Denies: Anorexia HEENT: Denies: Difficulty Swallowing Cardiovascular: Denies: Chest Pain Gastrointestinal: Denies: Abdominal Pain, Melena VTE Information - Inpt Only VTE Present on Admission: No Patient Problems: Active and Suspected Problems (Last Reviewed 01/26/19 @ 16:05 by Yessi Mcmahon) Screening for intestinal cancer (Acute) - Physical Exam Vitals/I&O's: Vital Signs Temp Pulse Resp BP Pulse Ox 96.8 F L 94 16 107/79 98 10/17/19 05:53 10/17/19 05:53 10/17/19 05:53 10/17/19 05:53 10/17/19 05:53 Oxygen Delivery Method Room Air Weight: 163 lb 5.8 oz Body Mass Index (BMI) 26.7 General: Alert, Oriented x3, Cooperative Oral: Moist Mucosa Lungs: Clear to auscultation Cardiovascular: Regular rate, Regular Rhythm Abdomen: Bowel Sounds Present, Soft, Non Tender, Non-Distended Extremities: No Calf Tenderness Psych/Mental Status: Normal Affect Current Medications Lactated Ringer's () 1,000 mls @ 100 mls/hr IV .Q10H AVRIL Last Admin: 10/17/19 05:58 Dose: 100 mls/hr Documented by: Assessment/Plan All Active Problems (Last Reviewed 01/26/19 @ 16:05 by Yessi Mcmahon) Screening for intestinal cancer (Acute) Breast cancer metastasized to axillary lymph node (Acute) History of tonsillectomy (Acute) Screening for intestinal cancer in the form of colonoscopy with possible biopsy or polypectomy is indicated. The patient presents via our open access program today. I have assisted her with the treatment of her breast cancer. She is aware of the technique, benefit, risk and alternatives. We will proceed as noted. Travis Painting M.D., F.A.C.S.
--- NOTE | 2019-10-17 06:30 | COLBX_PTH ---
PATIENT: THUY PATTERSON LOC: [facility] U#:[id number] AGE/SX: 49/F ROOM: RE10/17/[address]: Dr. Jessika Thompson MD : 1970 BED: DIS: 10/17/2019 SPEC #: [id number] RECD: 10/17/19 10:35 STATUS: ROBBY WEST #: [id number] VADIM: 10/17/19 06:[address]: Travis Painting DEPT: SURGICAL PATHOLOGY RECD BY: Jon Heart ENTERED: 10/17/19 11:15 SP TYPE: COLON BX OT DR: MD Dr. Jessika Sorto III, MD Tissues: Sigmoid colon biopsy Procedures: Surgery Specimen Level IV HEADER OPERATION: Colonoscopy - open access PRE-OP DIAGNOSIS: Screening colonoscopy TISSUE SUBMITTED: Proximal sigmoid biopsy MICROSCOPIC DIAGNOSIS Proximal sigmoid colon, biopsy: Tubular adenoma. AM:jeromy 10/18/19 MICROSCOPIC DESCRIPTION Slides are reviewed. GROSS DESCRIPTION Received in fixative is one container labeled with the patient's name and designated proximal sigmoid biopsy. The specimen consists of multiple irregular fragments of light devries soft tissue that in aggregate measure 1 x 0.5 x 0.1 cm. The specimen is totally submitted in one cassette. / AM:jeromy 10/17/19 TC:5 CPT: 39333
--- NOTE | 2019-10-17 06:49 | OP.COLON_ITS ---
Patient Name: Becky Huffman Procedure Date: 10/17/2019 6:18 AM Date of : 1970 Age: 49 Procedure: Colonoscopy Indications: Screening for colorectal malignant neoplasm Providers: Travis Painting MD Referring MD: Colin Painting Iii Medicines: Midazolam 3 mg IV, Meperidine 100 mg IV Patient Profile: Last Colonoscopy: none. The patient's first colonoscopy is today. Complications: No immediate complications. Procedure: Pre-Anesthesia Assessment: - Prior to the procedure, a History and Physical was performed, and patient medications and allergies were reviewed. The patient's tolerance of previous anesthesia was also reviewed. The risks and benefits of the procedure and the sedation options and risks were discussed with the patient. All questions were answered, and informed consent was obtained. Prior Anticoagulants: The patient has taken no previous anticoagulant or antiplatelet agents. ASA Grade Assessment: II - A patient with mild systemic disease. After reviewing the risks and benefits, the patient was deemed in satisfactory condition to undergo the procedure. After I obtained informed consent, the scope was passed under direct vision. Throughout the procedure, the patient's blood pressure, pulse, and oxygen saturations were monitored continuously. The colonoscope was introduced through the anus and advanced to the cecum, identified by appendiceal orifice and ileocecal valve. The colonoscopy was performed without difficulty. The patient tolerated the procedure well. The quality of the bowel preparation was excellent. The ileocecal valve and the appendiceal orifice were photographed. Moderate Sedation: Moderate (conscious) sedation was personally administered by the endoscopist. The following parameters were monitored: oxygen saturation, heart rate, blood pressure, and response to care. Total physician intraservice time was 15 minutes. Scope In: 6:34:56 AM Scope Withdrawal Time 0 hours 6 minutes 38 seconds Scope Out: 6:45:28 AM Total Procedure Duration Time 0 hours 10 minutes 32 seconds Findings: Hemorrhoids were found on perianal exam. A 4 mm polyp was found in the proximal sigmoid colon. The polyp was sessile. The polyp was removed with a cold biopsy forceps. Resection and retrieval were complete. Many diverticula were found in the sigmoid colon. The exam was otherwise without abnormality. Impression: - Hemorrhoids found on perianal exam. - One 4 mm polyp in the proximal sigmoid colon, removed with a cold biopsy forceps. Resected and retrieved. - Diverticulosis in the sigmoid colon. - The examination was otherwise normal. Recommendation: - Discharge patient to home. - Resume previous diet. - Continue present medications. - Repeat colonoscopy in 5 years for surveillance. - Telephone my office for pathology results in 1 week. Procedure Code(s): --- Professional --- 70769, Colonoscopy, flexible; with biopsy, single or multiple 93376, 59, Moderate sedation services provided by the same physician or other qualified health medicare contact specialist performing the diagnostic or therapeutic service that the sedation supports, requiring the presence of an independent trained observer to assist in the monitoring of the patient's level of consciousness and physiological status; initial 15 minutes of intraservice time, patient age 5 years or older Diagnosis Code(s): --- Professional --- Z12.11, Encounter for screening for malignant neoplasm of colon K64.9, Unspecified hemorrhoids D12.5, Benign neoplasm of sigmoid colon K57.30, Diverticulosis of large intestine without perforation or abscess without bleeding CPT copyright 2017 [employer]. All rights reserved. The codes documented in this report are preliminary and upon cableway operator review may be revised to meet current compliance requirements. Travis Painting MD 10/17/2019 6:49:10 AM This report has been signed electronically. Number of Addenda: 0 Note Initiated On: 10/17/2019 6:18 AM
== END 2019-10-17 07:36 | disposition home or self-care (01) ==
LOC: EN 05:28 → AC 05:29
PROVIDERS: Surgery; Family Provider Family Medicine; PCP Family Medicine; Referring Provider Family Medicine; Visit Provider Surgery
PROC: 0DJD8ZZ Inspection of Lower Intestinal Tract, Via Natural or Artificial Opening Endoscopic (ICD-10-PCS; CPT 45378; principal; 2019-10-17 06:25)
DX: Z12.11 Encounter for screening for malignant neoplasm of colon (principal); D12.5 Benign neoplasm of sigmoid colon; K64.9 Unspecified hemorrhoids; K57.30 Diverticulosis of large intestine without perforation or abscess without bleeding; C50.911 Malignant neoplasm of unspecified site of right female breast; C77.3 Secondary and unspecified malignant neoplasm of axilla and upper limb lymph nodes; M06.9 Rheumatoid arthritis, unspecified
CPT/HCPCS: 45380; 88305; 99152; 99153; J7120

== ENCOUNTER → 2019-12-19 07:07 | Outpatient (CLI) | payer OTHER, SELFPAY ==
[2019-10-17 05:53] VITALS: BMI 26.7
--- NOTE | 2019-12-19 07:08 | BI_ITS ---
MAMMOGRAPHY - BILATERAL SCREENING REASON FOR EXAM: Female, 49 years old. Routine annual screening examination. PERTINENT HISTORY: Personal history of breast cancer. Prior right lumpectomy with chemotherapy and radiation therapy. TECHNIQUE: Digital bilateral breast misha (3D mammographic acquisition) in the CC and MLO projections. 2-D mediolateral oblique (MLO) and craniocaudad (CC) views of both breasts were obtained. CAD: Full Field Digital Mammography with Computer Added Detection was performed. COMPARISON: Comparison is made with prior examination dated December 06, 2018 and December 03, 2007. FINDINGS: Breast Composition: The breasts are heterogeneously dense, which may obscure small masses. There are no dominant masses or suspicious calcifications. Since prior study, the patient has undergone excisional breast biopsy in the retroareolar region of the right breast. Resultant postoperative scarring as well as periareolar thickening is seen at this time. No other significant abnormalities are identified. BI/SCREEN MAMM (CAD) W/MISHA BILAT IMPRESSION: Status post excisional breast biopsy in the retroareolar region of the right breast with resultant postoperative scarring as well as thickening along the periareolar region. Yearly follow-up mammogram recommended. (A) ASSESSMENT CATEGORY: BIRADS Category 2: Benign. A letter regarding these results will be sent to the patient by the facility within 30 days. Approximately 10% of breast cancers are not detected by mammography. A normal mammogram should not delay biopsy of a clinically suspicious abnormality. [id number] Electronically Signed: Jeffery Heard, at 9:32 EST , Service support ,
[2019-12-20 10:21] LABS: Cancer Antigen 125 10.7 U/mL (0.0-38.1)
== END ==
PROVIDERS: PCP Family Medicine; Referring Provider Obstetrics & Gynecology; Visit Provider Obstetrics & Gynecology
DX: Z12.31 Encounter for screening mammogram for malignant neoplasm of breast (principal); C50.919 Malignant neoplasm of unspecified site of unspecified female breast; C77.3 Secondary and unspecified malignant neoplasm of axilla and upper limb lymph nodes
CPT/HCPCS: 36415; 77063; 77067; 86304

== ENCOUNTER → 2020-01-09 07:50 | Outpatient (CLI) | payer OTHER, SELFPAY ==
[2019-12-20 10:05] VITALS: BMI 26.7
--- NOTE | 2020-01-09 07:50 | US_ITS ---
STUDY: ULTRASOUND OF THE FEMALE PELVIS - COMPLETE REASON FOR EXAM: Female, 49 years old. Positive BRCA gene -- post dustin- LMP: The patient is postmenopausal. TECHNIQUE: Transabdominal and Transvaginal TECHNICAL QUALITY: Adequate. COMPARISON: None. FINDINGS: The uterus is anteverted and is in a midline position. The uterus measures 7.0 cm x 4.3 cm x 3.1 cm. Normal uterine cervix. The endometrium measures 1.8 mm in thickness, and is hyperechoic. There is no demonstrated endometrial mass. There is no demonstrated myometrial mass. I.U.D. - The patient does not have an I.U.D. The right ovary is visualized. The right ovary measures 1 cm x 1 cm x 0.6 cm. There is no right ovarian cyst or ovarian mass. There is no visualized right adnexal mass or complex lesion. There is normal arterial and normal venous vascularity. The left ovary is visualized. The left ovary measures 2.2 cm x 2.3 cm x 1.1 cm. There is no left ovarian cyst or ovarian mass. There is no visualized left adnexal mass or complex lesion. There is normal arterial and normal venous vascularity. There is no fluid in the cul-de-sac. The pre void volume of the bladder was 234 ml. Polycystic ovary disease: No. US/Transvaginal Non- IMPRESSION: Normal female pelvis. Electronically Signed: Jeffery Heard, at 9:22 EDT , Service support ,
--- NOTE | 2020-01-09 07:50 | US_ITS ---
STUDY: ULTRASOUND OF THE FEMALE PELVIS - COMPLETE REASON FOR EXAM: Female, 49 years old. Positive BRCA gene -- post dustin- LMP: The patient is postmenopausal. TECHNIQUE: Transabdominal and Transvaginal TECHNICAL QUALITY: Adequate. COMPARISON: None. FINDINGS: The uterus is anteverted and is in a midline position. The uterus measures 7.0 cm x 4.3 cm x 3.1 cm. Normal uterine cervix. The endometrium measures 1.8 mm in thickness, and is hyperechoic. There is no demonstrated endometrial mass. There is no demonstrated myometrial mass. I.U.D. - The patient does not have an I.U.D. The right ovary is visualized. The right ovary measures 1 cm x 1 cm x 0.6 cm. There is no right ovarian cyst or ovarian mass. There is no visualized right adnexal mass or complex lesion. There is normal arterial and normal venous vascularity. The left ovary is visualized. The left ovary measures 2.2 cm x 2.3 cm x 1.1 cm. There is no left ovarian cyst or ovarian mass. There is no visualized left adnexal mass or complex lesion. There is normal arterial and normal venous vascularity. There is no fluid in the cul-de-sac. The pre void volume of the bladder was 234 ml. Polycystic ovary disease: No. US/Pelvic (Non ) IMPRESSION: Normal female pelvis. Electronically Signed: Jeffery Heard, at 9:22 EDT , Service support ,
== END ==
PROVIDERS: PCP Family Medicine; Referring Provider Obstetrics & Gynecology; Visit Provider Obstetrics & Gynecology
DX: C50.919 Malignant neoplasm of unspecified site of unspecified female breast (principal); C77.3 Secondary and unspecified malignant neoplasm of axilla and upper limb lymph nodes; Z15.01 Genetic susceptibility to malignant neoplasm of breast; Z15.09 Genetic susceptibility to other malignant neoplasm
CPT/HCPCS: 76830; 76856

== ENCOUNTER 2020-02-28 06:55 | Day surgery (SDC) | payer OTHER, SELFPAY ==
[2019-12-19 08:19] VITALS: BMI 26.7
[2020-02-23 14:02] VITALS: BMI 26.7
--- NOTE | 2020-02-23 14:59 | EKG12_ITS ---
Test Reason : PRE-OP Blood Pressure : / mmHG Vent. Rate : 076 BPM Atrial Rate : 076 BPM P-R Int : 120 ms QRS Dur : 076 ms QT Int : 376 ms P-R-T Axes : 053 005 033 degrees QTc Int : 423 ms Normal sinus rhythm with sinus arrhythmia Normal ECG Confirmed by LEWIS HANNAH, BIANCA ([id number]), medical editor CRISTEL JIMENEZ ([id number]) on 02/27/2020 2:44:48 PM Referred By: Nydia Bains Confirmed By:GAYLA SAUCEDO MD
[2020-02-28] VITALS (7 sets, daily range): BP systolic 99–108; BP diastolic 71–79; PULSE 57–71; RESP 14–16; TEMP 36.5–36.7; O2SAT 96–99; BMI 25.9
[2020-02-28 07:17] LABS: Absolute Lymphocyte Count 1.24 X10^3/uL (0.83-4.51); Absolute Neutrophil Count 3.4 X10^3/uL (2.0-7.7); Basophil# 0.05 X10^3/uL; Basophil% 0.9 % (0-1); Eosinophil# 0.07 X10^3/uL; Eosinophils% 1.3 % (0-5); Hematocrit 38.1 % (37-47); Hemoglobin 12.5 g/dL (12.0-15.0); Lymphocyte # 1.24 X10^3/ul (4.0); Lymphocyte % 22.6 % (19-41); Mean Corp Hgb Conc 32.8 g/dL (32-36); Mean Corpuscular Hgb 31.4 pg (27.0-32.0); Mean Corpuscular Volume 95.7 fL (81-99); Mean Platelet Vol. 9.5 fl (6.2-12.0); Monocyte# 0.68 X10^3/uL; Monocyte% 12.4 % (0-10); NRBC Flagged by Analyzer 0 % (0-5); Neutrophil # 3.42 X10^3/uL (2.7-7.7); Neutrophil % 62.4 % (47-70); Platelet Count 229 K/mm3 (150-450); RBC Distribution Width CV 12.8 % (11.6-14.6); RBC Distribution Width SD 44.7 fl (35.1-43.9); Red Blood Count 3.98 M/mm3 (4.2-5.4); White Blood Count 5.5 K/mm3 (4.4-11.0)
[2020-02-28 07:31] LABS: Anion Gap 6 (5-15); BUN 20 mg/dL (7-18); BUN/Creat Ratio 32.3 RATIO (10-20); Chloride 108 mmol/L (98-107); Creatinine, Serum 0.62 mg/dL (0.55-1.02); EST Glomerular Filtration Rate 108 mL/min (>60); Est Glom Filt Rate - Afr Amer 130 mL/min (>60); Estimated Creatinine Clearance 100.49 ml/min; Glucose 89 mg/dL (74-106); Potassium 3.7 mmol/L (3.5-5.1); Sodium Level 140 mmol/L (136-145)
[2020-02-28] MEDS: Lactated Ringers 1,000 ML 100 ML IV ×2 (07:41→09:25)
[2020-02-28] MEDS: Lubricating Jelly 60 GM Tube 30 GM TOPICAL (08:00)
--- NOTE | 2020-02-28 08:11 | PCM.HPOB.BLA ---
- Problem List (1) BRCA gene positive Status: Acute Comment: will discuss fu with oncologist regarding mastectomy. recommend rrBSO. US ordered. BRCA 2, Deleterious mutation PALB2 History and Physical Date of Admission: 02/28/20 Intake Vital Signs 02/23/20 BMI 26.7 02/23/20 Height 5 ft 5.5 in 02/23/20 Weight: 157 lb 02/23/20 BMI 25.7 02/23/20 BP 102/84 H Intake Visit Reasons: pre op LBSO Chief Complaint: pre op LBSO Patient Care Assistant Required: No Is patient in pain?: No Allergies No Known Allergies Allergy (Verified 02/23/20 14:01) Medications prednisone 10 mg tablet 2.5 mg PO BID 11/02/17 [History Confirmed 02/23/20] multivitamin 1 tab PO DAILY 11/29/18 [History Confirmed 02/23/20] Anastrozole 1 mg PO DAILY 10/13/19 [History Confirmed 02/23/20] Ferrous Sulfate [Iron] 325 mg PO DAILY 10/13/19 [History Confirmed 02/23/20] Hydroxychloroquine Sulfate [Plaquenil] 200 mg PO BID 10/13/19 [History Confirmed 02/23/20] leflunomide 10 mg tablet 20 mg PO DAILY 12/19/19 [History Confirmed 02/23/20] Calcium Carbonate/Vitamin D3 [Calcium 500-Vit D3 600 Caplet] 1 ea PO BID 02/21/20 [History Confirmed 02/23/20] Is last menstrual period known: No Post menopausal: No Patient : No : No PFSH Medical History Breast cancer metastasized to axillary lymph node (Acute) Rheumatoid arthritis (Chronic) Breast cancer, right breast (Acute) Surgical History History of tonsillectomy (Acute) Status post right breast lumpectomy (Acute ~12/2018) Family History Son Diabetes Grandfather Heart disease Mother Cancer possible throat cancer (Went through radiation) Father Cancer lung Social History (Updated 02/23/20 @ 14:[address] Nydia Bains MD) Smoking Status: Never smoker alcohol intake: current alcohol intake frequency: holidays/special occasions only substance use type: does not use caffeine: Yes what type of physical activity do you participate in: walking, aerobics frequency: 5-6 times per week seatbelt use: always do you feel safe at home: Yes additional social history: Patient works at [employer] pre op LBSO: Details: THUY PATTERSON is a 49 year old who presents for preop consultation for risk reducing BSO. Female Reproductive History Questions: Metorrhagia: No, Sexually active: No Menopausal Symptoms: No hot flashes, No night sweats, Yes difficulty concentrating, No change in libido Pregancy History 3 Elective abortions Hx Para 2 Spontaneous abortions Hx # Term Pregnancies Ectopic pregnancies Hx # Pregnancies Multiple births # of living children Past Pregnancies Del. Date Name GA/Weeks Outcome Route Bth Weight Gen Labor Lgth Anesthesia Del Locatn Provider FOB Unknown 1995 Leonel Unknown 1998 Dinah ROS Const Constitutional: Denies night sweats Cardio Card: Denies chest pain Resp Resp: Denies cough or dyspnea GI GI: Reports as per HPI; denies abdominal pain, bloating, constipation, nausea or vomiting : Denies hot flashes or nipple discharge Skin Skin/Breast: Denies nipple discharge Psych Psych: Reports difficulty concentrating; denies change in sex drive Exam Const General: cooperative, healthy appearing, comfortable, no acute distress, well developed, well groomed [facility] Head: normal to inspection, normocephalic Ears: hearing grossly normal bilaterally, external ears normal Nose: external nose normal Face and sinus: normal facial exam Neck Neck: normal visual inspection, full ROM, no lymphadenopathy Thyroid: thyroid normal Chest Chest palpation & inspection: normal inspection of the chest Breast inspection: normal inspection of the breasts, normal inspection of the axillae Breast palpation: normal palpation of the breasts, normal palpation of the axillae, no axillary lymphadenopathy Resp Effort & Inspection: normal respiratory effort GI Inspection: normal to inspection, non-distended Palpation: soft, no hepatosplenomegaly, no guarding General: bladder normal to palpation External Female Exam: normal external appearance, normal appearance of the urethra, no lesions Urethra: normal appearance of the urethra Speculum Exam - Vagina: normal appearance of the vagina, normal vaginal discharge Speculum Exam - Cervix: normal appearance of the cervix, no cervical discharge, no lesions, nontender Bimanual Exam- Vagina & Uterus: bladder normal to palpation, No cervical tenderness Bimanual Exam- Adnexa, other: normal adnexae, no adnexal masses, adnexae non-tender Skin General: no rashes or lesions noted Neuro General: alert, moves all extremities, no focal motor deficits Extrem General: normal to inspection, no pedal edema Psych Appearance: grossly normal Mental Status: mental status grossly normal Affect: normal affect Speech and Movement: speech and movement normal Attitude: cooperative Assessment & Plan Problems 1. BRCA gene positive Z15.01; Z15.09 will discuss fu with oncologist regarding mastectomy. recommend rrBSO. US ordered. BRCA 2, Deleterious mutation PALB2 2. Dysthymia F34.1 recommend counseling, discussed medication if needed, consider SSRI Plan After discussing the patient's diagnosis and treatment plan options, patient wishes to proceed with surgical management. I have discussed with the patient the risks, benefits, and alternatives of the procedure which include but are not limited to risks of anesthesia, bleeding, infection, possible damage to bowel, bladder, or surrounding vasculature which could lead to additional surgery to evaluate any complications. Patient agrees to procedure and wishes to proceed. ACOG/uptodate references given for additional information regarding procedure. Coding Level of Care Code No Charge Diagnoses BRCA gene positive Z15.01; Z15.09 Dysthymia F34.1 UPDATE- I have seen the patient and performed any clinically relevant updates to the history and physical exam. Nydia Bains MD
--- NOTE | 2020-02-28 08:11 | PCM.OPRPT ---
Problem List (1) BRCA gene positive Status: Acute Comment: will discuss fu with oncologist regarding mastectomy. recommend rrBSO. US ordered. BRCA 2, Deleterious mutation PALB2 Report of Operation Date of Procedure: 02/28/20 Pre-Operative Diagnosis: BRCA gene positive Post-Operative Diagnosis: Same Surgery/Procedure Performed:: Laparoscopic BSO and cytologic washings Description of Surgical Findings:: nl tubes ovaries and upper abdomen table assembler: Sebastian Pichardo Type of Anesthesia:: General Special Medications: none Specimen's removed: biLateral tubes and ovaries Drains: none Estimated Blood Loss (mL): minimal Fluids Replaced: crystalloid Description of Procedure: Patient was taken in the operating room and was placed under general anesthesia was prepped and draped in normal sterile fashion in the dorsal lithotomy position. Bladder was drained of clear urine and SCDs were on preoperatively. Uterus was sounded and a uterine manipulator was placed after dilating. Attention was then paid to the abdominal portion of the procedure and the umbilicus was elevated with towel clamps and injected with Marcaine and after a 12 mm incision was made and the Veress needle was entered into the abdomen confirmed to be intra-abdominal with a low opening pressure of less than 5 mmHg. Abdomen was insufflated with CO2 gas and a 12 mm optical trocar was placed under direct visualization. A right and left lower quadrant 5 mm ports were placed under direct visualization. pelvic washings collected. Uterus was well visualized and bilateral fallopian tubes and ovaries were identified and the infundibulopelvic ligaments were transected across using the LigaSure device followed by transecting across the mesosalpinx to the attachment to the uterine corpus bilaterally the tubes and ovaries were removed without complication. Excellent hemostasis was noted. Fallopian tubes were removed through the lower port sites without complication. Liver and upper abdomen were visualized notably within normal limits and no other gross abnormalities were seen in the abdomen. All instruments removed from the abdomen after gas was desufflated. Port sites were closed with 3-0 Monocryl Steri's and op sites were applied. All instruments removed from the vagina and patient was awoken and taken recovery in stable condition. Grafts/Implants Used: none - Complications none Multi Select Codes - Urinary/Genital Urinary/Genital CPT Codes: 97696 Laproscopic BS/O
[2020-02-28] MEDS: Bupivacaine 0.25% 30 ML Vial (08:44)
--- NOTE | 2020-02-28 08:45 | FLU_PTH ---
PATIENT: THUY PATTERSON LOC: [facility] [place] U#:[id number] AGE/SX: 49/F ROOM: RE02/28/[address]: Dr. Nydia Bains MD : 1970 BED: DIS: 02/28/2020 SPEC #: [id number] RECD: 02/28/20 15:00 STATUS: ROBBY WEST #: [id number] VADIM: 02/28/20 08:[address]: Nydia Bains DEPT: CYTOLOGY RECD BY: Jon Heart ENTERED: 02/29/20 08:42 SP TYPE: Fluid OTHR DR: Dr. Colin Painting III, MD Tissues: Cytologic material, NOS Procedures: Special Stain Group II Cytospin Fluid HEADER OPERATION: Laparoscopic salpingo-oophorectomy, cytologic washings PRE-OP DIAGNOSIS: BRCA gene positive; sterilization TISSUE SUBMITTED: Cytologic washings DIAGNOSIS CYTOLOGY Cytologic washings (cytospin and cell block): Negative for malignant cells. See comment. 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 CYTOLOGY STUDY Slides are reviewed. CYTOLOGY GROSS Received is 40 ml of colorless hazy fluid labeled with the patient's name and and designated per the requisition as cytologic washings. Submitted for cytology preparation including cell block. / jeromy 02/29/20 TC:5 CPT: 73435, 07501
--- NOTE | 2020-02-28 08:45 | OV_PTH ---
PATIENT: THUY PATTERSON LOC: [facility] [place] U#:[id number] AGE/SX: 49/F ROOM: RE02/28/[address]: Dr. Nydia Bains MD : 1970 BED: DIS: 02/28/2020 SPEC #: [id number] RECD: 02/28/20 08:51 STATUS: ROBBY RELencho #: [id number] VADIM: 02/28/20 08:[address]: Nydia Bains DEPT: SURGICAL PATHOLOGY RECD BY: Jon Heart ENTERED: 02/28/20 10:03 SP TYPE: OVARY OTHR DR: Dr. Colin Painting III, MD Tissues: Ovary, NOS Procedures: Surgery Specimen Level IV HEADER OPERATION: Laparoscopic salpingo-oophorectomy PRE-OP DIAGNOSIS: BRCA gene positive; sterilization TISSUE SUBMITTED: Bilateral ovaries and fallopian tubes MICROSCOPIC DIAGNOSIS Bilateral ovaries and fallopian tubes, bilateral salpingo-oophorectomy: Bilateral fallopian tubes - no pathologic diagnosis. One ovary - focal endometriosis (block 8). Second ovary - no pathologic diagnosis. Paratubal cyst. Clinically, BRCA gene positive. 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 MICROSCOPIC DESCRIPTION Slides are reviewed. GROSS DESCRIPTION Received in fixative is one container labeled with the patient's name and designated bilateral ovaries and fallopian tubes. The specimen consists of bilateral fallopian tubes and ovaries. The fallopian tubes and ovaries are not identified as right or left. One of the fallopian tubes measures 7 cm in length and 0.5 cm in diameter. The fimbrial end is identified. A paratubal cyst is noted measuring 0.8 cm in greatest dimension. The adjacent ovary measures 2.5 x 1.5 x 1 cm. Sections reveal unremarkable cut surfaces. The second fallopian tube is similar in appearance to first one and measures 6 cm in length and 0.6 cm in diameter. The adjacent ovary measures 2.5 x 2 x 1 cm. Sections reveal unremarkable cut surfaces. The entire specimen is submitted in eight cassettes as follows: 1-4 - one fallopian tube and adjacent ovary (1?& 2 - fallopian tube and paratubal cyst, 3 & 4 - ovary), 5-8 - second fallopian tube and adjacent ovary (5 & 6 - fallopian tube and 7 & 8 - ovary). / KAYLEE:jeromy 02/28/20 TC:5 CPT: 61864 x2
--- NOTE | 2020-02-28 08:59 | DCINST_ITS ---
Discharge Diet: No Restrictions - Increase fluid intake for the next 48 hours. Discharge Activity: Return to Normal Activity, May Drive - when you are no longer taking narcotic pain medications., May Shower, May Take a Tub Bath - in 7 days Additional Activity Instructions:: Ambulate often the next week after surgery. Nothing in the vagina for 5 days. Call your doctor if your incision/area has: Continuous Slow Oozing, Sudden Increased Bleeding, Increased Pain/ Swelling, Increased Redness, Foul Smelling Discharge Call your doctor if you observe: Fever of 101 or Higher Allergies/Adverse Reactions: Allergies No Known Allergies Allergy (Verified 02/28/20 06:58) Medications to take at Discharge prednisone 10 mg tablet 2.5 mg PO BID 11/02/17 multivitamin 1 tab PO DAILY 11/29/18 Anastrozole 1 mg PO DAILY 10/13/19 Ferrous Sulfate [Iron] 325 mg PO DAILY 10/13/19 Hydroxychloroquine Sulfate [Plaquenil] 200 mg PO BID 10/13/19 leflunomide 10 mg tablet 20 mg PO DAILY 12/19/19 Calcium Carbonate/Vitamin D3 [Calcium 500-Vit D3 600 Caplet] 1 ea PO BID 02/21/20 Ibuprofen [Motrin] 600 mg PO Q6H PRN PRN #30 tab 02/28/20 Naproxen [Naprosyn] 250 - 500 mg PO Q8H PRN PRN #30 tab 02/28/20 Oxycodone HCl/Acetaminophen [Percocet 5-325] 1 - 2 tab PO Q6H PRN PRN 7 Days #15 tab 02/28/20 The following prescriptions were given: Ibuprofen [Motrin] 600 mg PO Q6H PRN PRN #30 tab PRN Reason: Pain Transmission Status: Received by [id number] Naproxen [Naprosyn] 250 - 500 mg PO Q8H PRN PRN #30 tab PRN Reason: MILD PAIN Transmission Status: Received by [facility] Oxycodone HCl/Acetaminophen [Percocet 5-325] 1 - 2 tab PO Q6H PRN PRN 7 Days #15 tab PRN Reason: Pain Transmission Status: Received by [facility] Primary Care Physician: Colin Painting III, MD [Primary Care Provider] - Test Results: Test results from this visit will be discussed in further detail at your follow- up appointment, if applicable. Please Follow Up With: Nydia Bains MD - [phone]
== END 2020-02-28 11:19 | disposition home or self-care (01) ==
LOC: SDC 06:56 → AC 06:57
PROVIDERS: Anesthesiology; PCP Family Medicine; Referring Provider Obstetrics & Gynecology; Visit Provider Obstetrics & Gynecology
PROC: (CPT 58661; principal; 2020-02-28 08:30)
DX: C50.911 Malignant neoplasm of unspecified site of right female breast (principal); C77.3 Secondary and unspecified malignant neoplasm of axilla and upper limb lymph nodes; Z15.01 Genetic susceptibility to malignant neoplasm of breast; Z15.09 Genetic susceptibility to other malignant neoplasm; N80.1 Endometriosis of ovary; N83.8 Other noninflammatory disorders of ovary, fallopian tube and broad ligament; F34.1 Dysthymic disorder
CPT/HCPCS: 00840; 58661; 80048; 85025; 86850; 86900; 86901; 88108; 88305; 88313; 93005; J7120; J2405

== ENCOUNTER → 2020-12-31 | Outpatient (CLI) | payer OTHER, SELFPAY ==
[2020-12-31 08:35] VITALS: BMI 23.8
[2021-01-02 21:12] LABS: HPV APTIMA, High Risk Negative (Negative)
== END | disposition home or self-care (01) ==
LOC: LABSPEC 13:04
PROVIDERS: PCP Family Medicine; Visit Provider Obstetrics & Gynecology
DX: Z12.4 Encounter for screening for malignant neoplasm of cervix (principal)
CPT/HCPCS: 87624; 88175; G0145

== ENCOUNTER → 2021-07-09 | Outpatient (CLI) | payer OTHER, SELFPAY | END | disposition home or self-care (01) | LOC: LABSPEC 07-10 08:32 | PROVIDERS: PCP Family Medicine; Referring Provider Physician Assistant Surgical; Visit Provider Physician Assistant Surgical | DX: U07.1 COVID-19 (principal) | CPT/HCPCS: 87635; U0005; U0003 ==

== ENCOUNTER 2022-01-07 16:54 | Outpatient (CLI) | payer OTHER, SELFPAY ==
--- NOTE | 2022-01-07 | TISS_PTH ---
PATIENT: THUY PATTERSON LOC: [facility] U#:[id number] AGE/SX: 51/F ROOM: RE01/07/[address]: Dr. Nydia Bains MD : 1970 BED: DIS: 01/07/2022 SPEC #: [id number] RECD: 01/07/22 18:18 STATUS: ROBBY JENNA #: [id number] VADIM: 01/07/22 00:[address]: Nydia Bains DEPT: SURGICAL PATHOLOGY RECD BY: Jon Heart ENTERED: 01/08/22 09:58 SP TYPE: Tissue Bx OT DR: Mackenzie Primary Care Phys Tissues: POLYP Procedures: Surgery Specimen Level IV HEADER OPERATION: Polyp removal PRE-OP DIAGNOSIS: Polyp TISSUE SUBMITTED: Polyp MICROSCOPIC DIAGNOSIS Polyp, biopsy: Benign endocervical polyp. KAYLEE:jeromy 01/09/2022 MICROSCOPIC DESCRIPTION Slides are reviewed. GROSS DESCRIPTION Received is one container labeled with the patient's name and not further designated. The specimen consists of a piece of devries soft tissue measuring 0.5 x 0.5 x 0.1 cm. The specimen is totally submitted in one cassette. / SJ:jeromy 01/08/2022 TC:5 CPT: 94055
[2022-01-14 08:41] LABS: HPV APTIMA, High Risk Negative (Negative)
== END 2022-01-07 23:59 | disposition home or self-care (01) ==
PROVIDERS: Referring Provider Obstetrics & Gynecology; Visit Provider Obstetrics & Gynecology
DX: Z12.4 Encounter for screening for malignant neoplasm of cervix (principal); N84.1 Polyp of cervix uteri
CPT/HCPCS: 87624; 88175; 88305; G0145

== ENCOUNTER → 2023-01-19 | Outpatient (CLI) | payer OTHER, SELFPAY ==
[2023-02-11 13:08] LABS: HPV APTIMA, High Risk Negative (Negative)
== END | disposition home or self-care (01) ==
LOC: LABSPEC 13:23
PROVIDERS: Referring Provider Obstetrics & Gynecology; Visit Provider Obstetrics & Gynecology
DX: Z12.4 Encounter for screening for malignant neoplasm of cervix (principal)
CPT/HCPCS: 87624; 88175; G0145

== ENCOUNTER → 2024-01-25 | Outpatient (CLI) | payer OTHER, SELFPAY ==
[2024-01-28 16:09] LABS: HPV APTIMA, High Risk Negative (Negative)
== END | disposition home or self-care (01) ==
LOC: LABSPEC 10:57
PROVIDERS: Referring Provider Obstetrics & Gynecology; Visit Provider Obstetrics & Gynecology
DX: Z12.4 Encounter for screening for malignant neoplasm of cervix (principal)
CPT/HCPCS: 87624; 88175; G0145

== ENCOUNTER 2024-12-15 19:45 | Inpatient (IN) | payer OTHER, SELFPAY ==
[2024-12-15 19:45] VITALS: BP 96/70; PULSE 102; RESP 17; TEMP 36.2; O2SAT 99
[2024-12-15 20:00] VITALS: BMI 23.0
--- NOTE | 2024-12-15 20:11 | RAD_ITS ---
PROCEDURE: WRIST MIN 3 VIEWS REASON FOR EXAM: Pain, injury TECHNIQUE: 3 view(s) of the left wrist COMPARISON: None. FINDINGS: LEFT WRIST: No fracture or dislocation. Soft tissue swelling about the wrist most notably about the ulnar styloid, anatomic snuffbox and dorsal wrist. Periosteal new bone formation at the ulnar styloid with note of osteoarthrosis at the proximal carpal row and 1st carpometacarpal joint. RAD/Wrist min 3 Views IMPRESSION: No fracture or dislocation. Soft tissue swelling about the wrist as above. Changes of osteoarthrosis as above. Reading Location: [id number]
[2024-12-15] MEDS: Morphine 4 MG/ML Syringe IV (20:19)
[2024-12-15] MEDS: Ondansetron 4 MG/2 ML Vial IV (20:19)
[2024-12-15 20:28] LABS: Erythrocyte Sedimentation Rate 59 mm/hr (0-30)
[2024-12-15 20:29] LABS: Absolute Lymphocyte Count 0.62 X10^3/uL (0.83-4.51); Absolute Neutrophil Count 4.4 X10^3/uL (2.0-7.7); Basophil# 0.01 X10^3/uL; Basophil% 0.2 % (0-1); Eosinophil# 0.05 X10^3/uL; Eosinophils% 0.9 % (0-5); Hematocrit 38.5 % (37-47); Hemoglobin 13.1 g/dL (12.0-15.0); Lymphocyte # 0.62 X10^3/ul (0.83-4.51); Lymphocyte % 11.1 % (19-41); Mean Corpuscular Hgb 31.8 pg (27.0-32.0); Mean Corpuscular Volume 93.4 fL (81-99); Mean Platelet Vol. 10.9 fl (6.2-12.0); Monocyte# 0.42 X10^3/uL; Monocyte% 7.5 % (0-10); NRBC Flagged by Analyzer 0 % (0-5); Neutrophil # 4.42 X10^3/uL (2.7-7.7); Neutrophil % 79.4 % (47-70); POSITIVE MORPHOLOGY YES; Platelet Count 169 K/mm3 (150-450); RBC Distribution Width CV 12.7 % (11.6-14.6); RBC Distribution Width SD 43.5 fl (35.1-43.9); Red Blood Count 4.12 M/mm3 (4.2-5.4); White Blood Count 5.6 K/mm3 (4.4-11.0)
[2024-12-15 20:49] LABS: Anion Gap 15 (5-15); BUN 29 mg/dL (4-19); BUN/Creat Ratio 27.1 RATIO (10-20); Calcium 9.3 mg/dL (7.6-11.0); Carbon Dioxide 19.8 mmol/L (22.0-29.0); Chloride 98 mmol/L (96-108); Creatinine, Serum 1.06 mg/dL (0.70-1.20); EST Glomerular Filtration Rate 62 (>60); Estimated Creatinine Clearance 55.48 ml/min; Glucose 122 mg/dL (70-99); Potassium 3.7 mmol/L (3.3-5.1); Sodium Level 134 mmol/L (133-145)
[2024-12-15 21:08] LABS: Differential Indicated SCAN CRITERIA MET
[2024-12-15 21:09] LABS: Platelet Estimate ADEQUATE (ADEQ); Toxic Granulation 1+; Vacuolated Cells 2+
[2024-12-15 21:10] LABS: Anisocytosis 1+; Crenated RBC 2+; Ovalocyte 1+; Polychromasia 1+; Schistocytes RARE; Target Cells RARE
[2024-12-15 21:11] LABS: Bite Cell RARE
--- NOTE | 2024-12-15 21:35 | EDS_ITS ---
HPI History of Present Illness Chief Complaint: Other, Pain/Inj Detail of Chief Complaint: Left wrist pain and swelling that started yesterday, history of RA Informant: patient Onset/Context/Timing Onset: Yesterday Context: Sudden Onset Timing: Continuous Quality: Pain Location: Left wrist Current Severity: Moderate Worsened by: Movement of the wrist Relieved by: Nothing Associated Symptoms Associated Symptoms: Diagnosed with influenza A Narrative Narrative: Patient was ill first part of the week. She was seen in urgent care and had a rapid strep that was negative. Today she had a rapid antigen for and was positive for influenza. She states her wrist started hurting yesterday. She was unable to sleep because of the pain. Patient's was placed on 40 mg of steroid a day. Patient denies headache, neck pain or stiffness. She does complain of left shoulder pain and left wrist pain. The wrist pain is much worse. The wrist pain started before the shoulder pain. She does have some mild upper respiratory tract symptoms. She denies no GI symptoms. He has no symptoms. 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 Breast cancer, right breast Rheumatoid arthritis Home Medications ?Medication ?Instructions ?Recorded ?Last Taken ?Type multivitamin 1 tab PO DAILY 11/29/18 Unkn own History anastrozole 1 mg tablet 1 mg PO DAILY 10/13/19 Unkno wn History ferrous sulfate 325 mg (65 mg 325 mg PO DAILY 10/13/19 Unknown History iron) tablet leflunomide 10 mg tablet (Arava) 20 mg PO DAILY Unknown History calcium 500 mg (as 1 ea PO BID 02/21/20 Unknown History carbonate)-vitamin D3 15 mcg (600 unit) tablet certolizumab pegol 400 mg/2 mL 200 mg subcut Q2W 12/31 Unknown History (200 mg/mL x2) subcutaneous syringe kit (Cimzia) hydroxychloroquine 200 mg tablet 200 mg PO BID 1 Unknown History hydrocortisone 2.5 % topical 1 applic topical BID #28. 35 grams 01/25/24 Unknown Rx ointment Allergy/AdvReac Type Severity Reaction Status Date / Time No Known Allergies Allergy Verified 12/15/24 19:45 Family History Son Diabetes Grandfather Heart disease Mother Cancer possible throat cancer (Went through radiation) Father Cancer lung Surgical History S/P bilateral salpingo-oophorectomy S/P breast reconstruction S/P bilateral mastectomy Status post right breast lumpectomy (~12/2018) History of tonsillectomy Social History household members: none housing: apartment current occupational status: employed Smoking Status: Never smoker alcohol intake: current alcohol intake frequency: holidays/special occasions only substance use type: does not use caffeine: Yes what type of physical activity do you participate in: walking and aerobics frequency: 5-6 times per week seatbelt use: always do you feel safe at home: Yes additional social history: Patient works at [employer], [email or web address] home ROS ROS ED Constitutional Constitutional ED: Reports fever(s) and subjective; Denies chills or sweats Eyes Eyes: Denies blurry vision, change in vision or diplopia ENT ENT ED: Reports sore throat; Denies ear pain or rhinorrhea Cardiovascular Cardiovascular: Denies chest pain or palpitations Respiratory/Chest Respiratory/Chest: Reports cough; Denies dyspnea, dyspnea on exertion or sputum Gastrointestinal Gastrointestinal: Denies abdominal pain, constipation, nausea or vomiting Genitourinary Genitourinary ED: Denies dysuria, hematuria or urinary frequency Musculoskeletal Musculoskeletal: Reports other Details: Left wrist pain and swelling in left shoulder pain ; Denies arthralgias or myalgias Integumentary Reports rash Hematologic/Lymphatic Hematologic/Lymphatic: Reports systems reviewed and no addt'l complaints, except as documented EXAM Physical Exam Const Vital Signs: 12/15/24 19:45 12/15/24 20:00 Temperature 97.2 F L Temperature Source Temporal Pulse Rate 102 H Respiratory Rate 17 Respiratory Effort Normal Non-Labored Respiratory Pattern Normal Blood Pressure 96/70 Blood Pressure Mean 78 Pulse Ox 99 Oxygen Delivery Method Room Air Positive well nourished and well developed Constitutional Narrative: Patient has a hoarse voice. She appears ill. There is obvious swelling of her left wrist. General Appearance ED: well developed; Negative for cyanotic, diaphoretic, NAD or pallor HEENT Reports dry mucous membranes HEENT Narrative: Head is atraumatic, cephalic. Ears normal. Nares patent. Posterior pharynx reveals some erythema. Mouth ED: Yes dry mucous membranes Mouth: dry mucous membranes Eyes PERRL and EOMs intact bilaterally General Eye ED: Negative for pale conjunctiva or scleral icterus Neck no lymphadenopathy, supple and no JVD Chest Wall inspection of chest normal and palpation of chest normal Resp normal respiratory effort and clear to auscultation bilaterally Cardio regular rhythm, S1 normal heart sound, S2 normal heart sound and no murmurs Rate: tachycardic GI normal to inspection, nondistended, normoactive bowel sounds, non-tender, non- distended and no masses; Negative for hepatosplenomegaly Auscultation: normoactive bowel sounds Palpation: soft Extremity Negative for normal to inspection Extremity Narrative: Patient has pain with passive range of motion of the shoulder and the wrist. The wrist is obviously swollen. I do not appreciate obvious effusion of the left shoulder. There is some soft tissue swelling. There is no evidence of overlying cellulitis. There is slight erythema of the wrist. General Extremety ED: Yes tenderness; Negative for edema General Extremity: Negative for edema Neuro oriented x3 and CN's II-XII intact bilaterally Sensorium / Orientation: alert Skin no rashes or lesions noted, no wounds and skin turgor normal General Skin Exam: Negative for jaundice or pallor MDM MDM MDM Narrative Medical decision making narrative: Patient appears ill. This is probably most likely due to her influenza A. My concern is her wrist which may represent crystal induced arthritis i.e. gout or pseudogout versus a flare of her rheumatoid arthritis versus pyogenic arthritis. X-ray of the wrist was obtained to evaluate for any bony abnormality destruction. Patient was informed that an arthrocentesis needed to be performed. She verbally consented. Lab Data Lab results narrative: White count is 5.6. This may be low because she is on prednisone and she was diagnosed with influenza which may cause a lower white count. There is a slight shift with 80% segs. There is toxic granulation noted as well as toxic vacuolation consistent with infection. Basic metabolic panel reveals a CO2 of 19.8 with a normal anion gap. Glucose is slightly evaded 122. CRP is 412. Labs: Laboratory Results - last 24 hr 12/15/24 12/15/24 20:13 21:37 WBC 5.6 RBC 4.12 L Hgb 13.1 Hct 38.5 MCV 93.4 MCH 31.8 MCHC 34.0 RDW Std Deviation 43.5 RDW Coeff of Myla 12.7 Plt Count 169 MPV 10.9 Immature Gran % (Auto) 0.900 Neut % (Auto) 79.4 H Lymph % (Auto) 11.1 L [place] % (Auto) 7.5 Eos % (Auto) 0.9 Baso % (Auto) 0.2 Absolute Neuts (auto) 4.4 Absolute Lymphs (auto) 0.62 L Nucleated RBC % 0 Differential Comment Toxic Granulation 1+ Toxic Vacuolation 2+ Platelet Estimate ADEQUATE Polychromasia 1+ Anisocytosis 1+ Target Cells RARE Ovalocytes 1+ Bite Cells RARE Crenated Cell 2+ Schistocytes RARE ESR 59 H Sodium 134 Potassium 3.7 Chloride Direct 98 Carbon Dioxide 19.8 L Anion Gap 15 BUN 29 H Creatinine 1.06 Estim Creat Clear Calc 55.48 Est GFR (MDRD) Non-Af 62 BUN/Creatinine Ratio 27.1 H Glucose 122 H Calcium 9.3 C-React Prot Ext Range 412.00 H Fluid Source Cancelled Fluid Color Cancelled Fluid Appearance Cancelled Fluid WBC Cancelled Fluid RBC Cancelled Fluid Tot Cell Count Cancelled Fld Polynuclear WBCs # Cancelled Fld Polynuclear WBCs % Cancelled Fluid Mononuclear WBCs Cancelled Fld Mononuclear WBCs % Cancelled Fluid Neutrophils Cancelled Fluid Lymphocytes Cancelled Fluid Monocytes Cancelled Fluid Plasma Cells Cancelled Fluid Macrophages Cancelled Fld Mesothelial Cells Cancelled Fluid Other Cells Cancelled Fluid Crystals Cancelled Fluid Crystal Source Cancelled Fl Crystal Path Review Cancelled Fl Pathologist Comment Cancelled Fluid Glucose Cancelled Fluid Comment 2 Cancelled Radiography Diagnostic Testing: Clinical Impression(s) from Imaging Studies Wrist X-Ray 12/15/24 20:11 IMPRESSION: No fracture or dislocation. Soft tissue swelling about the wrist as above. Changes of osteoarthrosis as above. Reading Location: [id number] Management Discussion w/another healthcare provider: Hospitalist (Spoke with Dr. Geovany Doshi hospitalist. Was informed the patient may eat or have something to drink up to midnight. He was informed that I did contact Dr. Evangelista and the plan is OR in the morning. He requested a CT and he will look at that.) and E Mail System Administrator (Case discussed with orthopedics, Dr. Evangelista. Plan is OR in the morning) Procedures Other Procedures Procedure(s): Arthrocentesis of the left wrist was performed by me. 1 cc of thick green purulent material was aspirated. This was sent for Gram stain and culture as well as cell count and crystals. Discharge Plan Triage Chief Complaint: Other, Pain/Inj ED Provider: Ajith Chavira Dx/Rx/DC Orders Clinical Impression: Septic arthritis of wrist, left, Immunosuppressed status, Rheumatoid arthritis, Influenza A, Acute pain of left shoulder Prescriptions: No Action multivitamin tablet 1 tab PO DAILY leflunomide [Arava] 10 mg tablet 20 mg PO DAILY Cimzia 400 mg/2 mL (200 mg/mL x 2) syringe kit 200 mg SC Q2W hydrocortisone 2.5 % ointment 1 applic topical BID Qty: 28.35 1RF anastrozole 1 MG tablet 1 mg PO DAILY ferrous sulfate 325 MG tablet 325 mg PO DAILY hydroxychloroquine 200 mg tablet 200 mg PO BID calcium carbonate-vitamin D3 1 EACH tablet 1 ea PO BID Primary Care Provider: Becky Ireland NP Referrals: Becky Ireland NP, INDUSTRIAL REGISTERED NURSE-C [Primary Care Provider] - Print Language: Amharic Disposition Disposition: [facility]
[2024-12-15] MEDS: Lidocaine 1% (20 ml mdv) 20 ML Vial 5 ML INFILT (21:46)
--- NOTE | 2024-12-15 22:03 | CT_ITS ---
PROCEDURE: EXTREMITY UPPER WITHOUT CONTRA REASON FOR EXAM: Pain, evaluate fluid, septic joint TECHNIQUE: CT of the left shoulder without contrast with coronal and sagittal reformatted images COMPARISON: None. FINDINGS: No evidence of glenohumeral joint or acromioclavicular joint effusion identified by CT. There appears to be edema at the deltoid and rotator cuff with subcutaneous soft tissue stranding anterior to the biceps muscle and lower aspect of the deltoid muscle for example axial 70. Findings may be inflammatory or infectious. No soft tissue gas or focal fluid collection. No osseous destruction or periosteal reaction. No fracture or dislocation. The visualized left lung appears clear. CT/Extremity Upper without Contra IMPRESSION: No evidence of glenohumeral joint or acromioclavicular joint effusion identifie d by CT. There appears to be edema at the deltoid and rotator cuff with subcutaneous sof t tissue stranding anterior to the biceps muscle and lower aspect of the deltoid muscle for example axial 70. Findings may be in flammatory or infectious. No soft tissue gas or focal fluid collection One or more dose reduction techniques were used (e.g., Automated exposure contr ol, adjustment of the mA and/or kV according to patient size, use of iterative reconstruction technique). Reading Location: [id number]
--- NOTE | 2024-12-15 22:09 | HP.PCM.HOS_ITS ---
[facility] - General General Date of Admission: 12/15/24 Date of Service: 12/15/24 Chief Complaint: Left Wrist Infection with Septic Arthritis. [facility] Narrative THUY PATTERSON, is a 54 F with a past medical history of RA; on leflunomide, hydroxychloroquine twice daily, and certolizumab q. 2 weeks, history of Right- sided Breast Cancer (2018); with metastases to axillary lymph node s/p bilateral mastectomy (2019) with reconstruction and BRCA gene positive on anastrozole, history of bilateral salpingo-oophorectomy, and OA who presents to [facility] ER complaining of Left wrist pain and swelling. Ms. Patterson reports her symptoms began approximately 4 days prior to admission when she developed symptoms of a viral URI with subsequent visit to urgent care and diagnosis of Influenza A with negative rapid strep test. She then began to develop increasing pain and swelling of her Left wrist that caused her to be unable to sleep so she decided to come in for further evaluation and treatment. She denies associated fever, chills, nausea, vomiting, diarrhea, constipation, abdominal pain, chest pain, shortness of breath or headache. In the ER she underwent arthrocentesis of the Left wrist which returned purulent green material consistent with Septic Arthritis in the setting of Immune Suppressed Status with drugs used to treat RA and she was then admitted to the general medical floor for ongoing care for a stay that is expected to extend beyond 2 midnights. [facility] Medical History BRCA gene positive Breast cancer metastasized to axillary lymph node Breast cancer, right breast Rheumatoid arthritis Home Medications ?Medication ?Instructions ?Recorded ?Last Taken ?Type multivitamin 1 tab PO DAILY general healt h 11/29/18 Unknown History anastrozole 1 mg tablet 1 mg PO DAILY arthritis 09/19 04/06 Unknown History ferrous sulfate 325 mg (65 mg 325 mg PO DAILY anemia 1 12/14/18 Unknown History iron) tablet leflunomide 10 mg tablet (Arava) 20 mg PO DAILY arthri tis 12/19/19 Unknown History calcium 500 mg (as 1 ea PO BID def. 02/21/20 Un known History carbonate)-vitamin D3 15 mcg (600 unit) tablet certolizumab pegol 400 mg/2 mL 200 mg subcut Q2W arthr itis 12/31/20 Unknown History (200 mg/mL x2) subcutaneous syringe kit (Cimzia) hydroxychloroquine 200 mg tablet 200 mg PO BID arthrit is 07/09/21 Unknown History hydrocortisone 2.5 % topical 1 applic topical BID PRN perineal 12/15/24 Unknown History ointment area leflunomide 20 mg tablet 20 mg PO DAILY arthritis Unknown History prednisone 10 mg tablet 20 mg PO BID swollen neck Unknown History prednisone 20 mg tablet 20 mg PO BID swollen neck Unknown History Allergy/AdvReac Type Severity Reaction Status Date / Time No Known Allergies Allergy Verified 12/15/24 19:45 Family History Son Diabetes Grandfather Heart disease Mother Cancer possible throat cancer (Went through radiation) Father Cancer lung Surgical History S/P bilateral salpingo-oophorectomy S/P breast reconstruction S/P bilateral mastectomy Status post right breast lumpectomy (~12/2018) History of tonsillectomy Social History household members: none housing: apartment current occupational status: employed Smoking Status: Never smoker alcohol intake: current alcohol intake frequency: holidays/special occasions only substance use type: does not use caffeine: Yes what type of physical activity do you participate in: walking and aerobics frequency: 5-6 times per week seatbelt use: always do you feel safe at home: Yes additional social history: Patient works at [employer] ROS ROS Narrative Review of Systems: Constitutional: Patient denies fever or chills. Eyes: Patient denies changes in vision or discharge from eyes. ENT: Patient denies runny nose, sore throat or ear pain. Resp: Patient denies shortness of breath or cough. CV: Patient denies chest pain, palpitations, heart racing or lower extremity edema. GI: Patient denies abdominal pain, nausea, vomiting, diarrhea or constipation. : Patient denies dysuria or hematuria. MSK: Patient admits to severe pain and swelling of the Left wrist as per HPI. Skin: Patient denies rash. Psych: Patient denies symptoms of uncontrolled depression or anxiety. Neuro: Patient denies headache, paresthesias or focal neurologic deficits. Allergy: Patient denies lip swelling, tongue swelling or urticaria. Hematology: Patient denies easy bleeding or easy bruisability. Endocrinology: Patient denies polyuria, polydipsia or polyphagia 14 point ROS otherwise negative except for positives noted above in HPI. Vital Signs Vital Signs Vital Signs: 12/15/24 19:45 12/15/24 20:00 Temperature 97.2 F L Temperature Source Temporal Pulse Rate 102 H Respiratory Rate 17 Respiratory Effort Normal Non-Labored Respiratory Pattern Normal Blood Pressure 96/70 Blood Pressure Mean 78 Pulse Ox 99 Oxygen Delivery Method Room Air Weight Weight: 142 lb 10.225 oz Body Mass Index (BMI) 23.0 Physical Exam Const alert, oriented x3, no apparent distress, average body habitus and healthy appearing General Appearance: cooperative HEENT normocephalic, head/scalp atraumatic, hearing grossly normal bilaterally and moist oral mucous membranes Eyes PERRL, EOMs intact bilaterally and conjunctivae normal Neck no lymphadenopathy, supple and no JVD Resp normal respiratory effort, no retractions, no use of accessory muscles and clear to auscultation bilaterally Cardio regular rate and regular rhythm GI normal to inspection, nondistended, normoactive bowel sounds, soft to palpation, non-tender and non-distended Extremity Extremity Narrative: Left wrist edematous and tender to palpation with evidence of recent arthrocentesis. Skin Skin Narrative: Patient has no evidence of rash. Neuro oriented x3, CN's II-XII intact bilaterally, moves all extremities and no focal motor deficits Sensorium / Orientation: awake, alert, oriented to person, oriented to place and oriented to time Speech: speech normal Psych affect normal Results Medical Records Data Attestation: I reviewed the patient's medical records Lab / Micro Data Attestation: I reviewed the patient's lab results. 12/15/24 20:13 12/15/24 20:13 Labs: Laboratory Results - last 24 hr 12/15/24 20:13: WBC 5.6, RBC 4.12 L, Hgb 13.1, Hct 38.5, MCV 93.4, MCH 31.8, MCHC 34.0, RDW Std Deviation 43.5, RDW Coeff of Myla 12.7, Plt Count 169, MPV 10.9, Immature Gran % (Auto) 0.900, Neut % (Auto) 79.4 H, Lymph % (Auto) 11.1 L, [place] % (Auto) 7.5, Eos % (Auto) 0.9, Baso % (Auto) 0.2, Absolute Neuts (auto) 4.4, Absolute Lymphs (auto) 0.62 L, Nucleated RBC % 0, Differential Comment , Toxic Granulation 1+, Toxic Vacuolation 2+, Platelet Estimate ADEQUATE, Polychromasia 1+, Anisocytosis 1+, Target Cells RARE, Ovalocytes 1+, Bite Cells RARE, Crenated Cell 2+, Schistocytes RARE, ESR 59 H, Sodium 134, Potassium 3.7, Chloride Direct 98, Carbon Dioxide 19.8 L, Anion Gap 15, BUN 29 H, Creatinine 1.06, Estim Creat Clear Calc 55.48, Est GFR (MDRD) Non-Af 62, BUN/Creatinine Ratio 27.1 H, Glucose 122 H, Calcium 9.3, C-React Prot Ext Range 412.00 H 12/15/24 21:37: Fluid Source Cancelled, Fluid Color Cancelled, Fluid Appearance Cancelled, Fluid WBC Cancelled, Fluid RBC Cancelled, Fluid Tot Cell Count Cancelled, Fld Polynuclear WBCs # Cancelled, Fld Polynuclear WBCs % Cancelled, Fluid Mononuclear WBCs Cancelled, Fld Mononuclear WBCs % Cancelled, Fluid Neutrophils Cancelled, Fluid Lymphocytes Cancelled, Fluid Monocytes Cancelled, Fluid Plasma Cells Cancelled, Fluid Macrophages Cancelled, Fld Mesothelial Cells Cancelled, Fluid Other Cells Cancelled, Fluid Crystals Cancelled, Fluid Crystal Source Cancelled, Fl Crystal Path Review Cancelled, Fl Pathologist Comment Cancelled, Fluid Glucose Cancelled, Fluid Comment 2 Cancelled Imaging Radiology Impression Wrist X-Ray 12/15/24 20:11 IMPRESSION: No fracture or dislocation. Soft tissue swelling about the wrist as above. Changes of osteoarthrosis as above. Reading Location: [id number] Assessment & Plan Assessment/Plan (1) Septic arthritis of wrist, left: QUALIFIERS: Septic arthritis organism: due to unspecified organism Qualified Code(s): M00.9 - Pyogenic arthritis, unspecified (2) Immunosuppressed status: (3) Rheumatoid arthritis: QUALIFIERS: Laterality: left Rheumatoid arthritis location: wrist Rheumatoid factor presence: unspecified presence Qualified Code(s): M06.9 - Rheumatoid arthritis, unspecified (4) Influenza A: (5) Dehydration: PLAN: Plan 1. Septic Arthritis of the Left wrist with corresponding elevated C-reactive protein of 412 mg/L and ESR of 59 mm/h both present on admission- Admit to general medical floor. Continue empiric IV ceftriaxone and IV vancomycin begun in the ER and await culture and sensitivity data. Keep n.p.o. after midnight for anticipated surgical treatment in AM. Give acetaminophen as needed for [id number] (level 1-5/10) pain or fever. Give morphine IV as needed for severe (level 6-10/10) pain. Finally, ER physician has contacted orthopedic surgeon who plans to take patient to surgery in AM with help greatly appreciated. 2. Immune Suppressed Status with drugs used to treat RA predisposing to #1 - Hold leflunomide, hydroxychloroquine twice daily, and certolizumab until infection has margarita neutralized. 3. Recently diagnosed Influenza A compounding #1 & #2 - Place on droplet and contact precautions and treat supportively. 4. Dehydration; evidenced by elevated BUN/creatinine ratio of 27.1 present on admission adding to the medical complexity of #1 - #4 - Give NS IVF and recheck levels in AM to confirm improvement. 5. History of Right-sided Breast Cancer (2019); with metastases to axillary lymph node s/p bilateral mastectomy (2019) with reconstruction and BRCA gene positive on anastrozole - Noted with no active signs of recurrence at this time. 6. History of bilateral salpingo-oophorectomy - Noted. 7. OA - Give acetaminophen as needed according to pain scale noted above. 8. DVT prophylaxis - SCD's only at this time with impending surgery. Consider LMWH after surgical intervention if okay with orthopedics. Total time: Approximately (but not less than) 55 minutes. Charges/Coding Visit Charges Inpatient E&M: 91638 Init Hosp L2
[2024-12-15] MEDS: Ceftriaxone 2 GM in 0.9% Normal Saline (50mL MB+) 50 ML IV (22:27)
[2024-12-15 22:32] VITALS: BP 96/70; PULSE 102; RESP 17; TEMP 36.2; O2SAT 99
--- NOTE | 2024-12-15 22:32 | ED.RN ---
unable to complete med rec due to chart being edited
[2024-12-15] MEDS: Vancomycin IV 1,000 MG/200 ML BAG 200 MG IV (23:03)
[2024-12-15] MEDS: 0.9% Normal Saline (1000mL) 1,000 ML 100 ML IV (23:08)
[2024-12-15] MEDS: Ketorolac 15 MG/ML Vial IV (23:31)
[2024-12-15 23:39] LABS: Magnesium 1.8 mg/dL (1.5-2.2)
[2024-12-15 23:46] VITALS: BMI 23.5
[2024-12-15 23:56] VITALS: BP 135/96; PULSE 100; RESP 16; TEMP 36.8; O2SAT 97
[2024-12-16] VITALS (14 sets, daily range): BP systolic 120–162; BP diastolic 60–96; PULSE 108–117; RESP 16–18; TEMP 36.6–37.7; O2SAT 92–99; BMI 23.4; BMI 23.5
--- NOTE | 2024-12-16 00:15 | PCM.RX.CS ---
Consult Antibiotic Management Pharmacy has been consulted to manage selected antibiotic: Vancomycin Type of Intervention Type of Consult: New start Labs Labs: Sodium 134 mmol/L (133-145) 12/15/24 20:13 Potassium 3.7 mmol/L (3.3-5.1) 12/15/24 20:13 Carbon Dioxide 19.8 mmol/L (22.0-29.0) L 12/15/24 20:13 Anion Gap 15 (5-15) 12/15/24 20:13 BUN 29 mg/dL (4-19) H 12/15/24 20:13 Creatinine 1.06 mg/dL (0.70-1.20) 12/15/24 20:13 Est GFR (MDRD) Non-Af 62 (>60) 12/15/24 20:13 BUN/Creatinine Ratio 27.1 RATIO (10-20) H 12/15/24 20:13 Glucose 122 mg/dL (70-99) H 12/15/24 20:13 Dosing Weight Weight used for dosin.1 kg Estimated Creatinine Clearance Estimated Creatinine Clearance: 55.5 Goal Trough Goal Trough: 15-20 mcg/mL Pharmacy Plan for Drug Dosing Pharmacy Plan for Drug Dosing: Pharmacy Service will continue to monitor and adjust dosing as required. Follow-Up Labs Follow-Up Labs: Trough: Vancomycin Date/Time Labs Ordered Labs to be done on [date and time ordered]: 12/17/24 @1369
[2024-12-16] MEDS: Morphine 2 MG/ML Syringe IV (02:43)
--- NOTE | 2024-12-16 04:40 | EKG12_ITS ---
Test Reason : AM EKG Blood Pressure : */* mmHG Vent. Rate : 111 BPM Atrial Rate : 111 BPM P-R Int : 112 ms QRS Dur : 82 ms QT Int : 296 ms P-R-T Axes : 57 18 32 degrees QTcB Int : 402 ms Sinus tachycardia Possible Left atrial enlargement Borderline ECG When compared with ECG of 23-Feb-2020 15:15, No significant change was found Confirmed by Tai Vidal ([id number]), news videotape editor JERI ELLISON ([id number]) on 12/16/2024 9:44:24 AM Referred By: Ajith Chavira Confirmed By: Tai Vidal
--- NOTE | 2024-12-16 06:59 | CON.PCM.OR_ITS ---
HPI Consult Data Date of Consult: 12/16/24 HPI Narrative Reason for Consultation: Left wrist concern for septic arthritis HPI Narrative: THUY PATTERSON, is a 54 F who presented last evening to [facility] emergency department with Left wrist pain starting 12/14/2024. She reports being diagnosed with influenza earlier this week. She had a reported upper respiratory symptoms 5 days ago and was started on prednisone 40 mg/day by an urgent care provider. She states her upper respiratory symptoms improved dramatically after 48 hours but began to notice severe left wrist pain that gradually worsened. She reports similar flareup pain in her wrist but not to this degree in the remote past. She does have history of rheumatoid arthritis for which she is regularly on leflunomide, Cimzia, and hydroxychloroquine. She reports has been several years since she has had a flareup. She reports fevers ranging from 101-103 which stopped approximately 48 hours ago. Patient was seen in the emergency department last evening. Emergency room physician performed a left wrist arthrocentesis yielding approximately 1 cc of beny purulent fluid. This was sent to the lab for fluid analysis. Patient was started on ceftriaxone and vancomycin and admitted under the service of the hospitalist last evening. Patient also reports to a lesser degree left shoulder pain, anterior lateral and even lesser degree right shoulder pain. She does report noticing a red rash over the front of her left shoulder but denies any rash of the left wrist or right shoulder. She denies any other joint pain at this time. [facility] Medical History BRCA gene positive Breast cancer metastasized to axillary lymph node Breast cancer, right breast Rheumatoid arthritis Home Medications ?Medication ?Instructions ?Recorded ?Last Taken ?Type multivitamin 1 tab PO DAILY general healt h 11/29/18 Unknown History anastrozole 1 mg tablet 1 mg PO DAILY arthritis 09/19 04/06 Unknown History ferrous sulfate 325 mg (65 mg 325 mg PO DAILY anemia 1 12/14/18 Unknown History iron) tablet leflunomide 10 mg tablet (Arava) 20 mg PO DAILY arthri tis 12/19/19 Unknown History calcium 500 mg (as 1 ea PO BID def. 02/21/20 Un known History carbonate)-vitamin D3 15 mcg (600 unit) tablet certolizumab pegol 400 mg/2 mL 200 mg subcut Q2W arthr itis 12/31/20 Unknown History (200 mg/mL x2) subcutaneous syringe kit (Cimzia) hydroxychloroquine 200 mg tablet 200 mg PO BID arthrit is 07/09/21 Unknown History hydrocortisone 2.5 % topical 1 applic topical BID PRN perineal 12/15/24 Unknown History ointment area leflunomide 20 mg tablet 20 mg PO DAILY arthritis Unknown History prednisone 10 mg tablet 20 mg PO BID swollen neck Unknown History prednisone 20 mg tablet 20 mg PO BID swollen neck Unknown History Allergy/AdvReac Type Severity Reaction Status Date / Time No Known Allergies Allergy Verified 12/15/24 19:45 Family History Son Diabetes Grandfather Heart disease Mother Cancer possible throat cancer (Went through radiation) Father Cancer lung Surgical History S/P bilateral salpingo-oophorectomy S/P breast reconstruction S/P bilateral mastectomy Status post right breast lumpectomy (~12/2018) History of tonsillectomy Social History household members: none housing: apartment current occupational status: employed Smoking Status: Never smoker alcohol intake: current alcohol intake frequency: holidays/special occasions only substance use type: does not use caffeine: Yes what type of physical activity do you participate in: walking and aerobics frequency: 5-6 times per week seatbelt use: always do you feel safe at home: Yes additional social history: Patient works at [employer], [employer] ROS ROS Narrative 12 point review of systems obtained, negative unless otherwise noted in HPI. Vital Signs Vital Signs Vital Signs: 12/15/24 19:45 12/15/24 20:00 12/15/24 22:32 Temperature 97.2 F L 97.2 F L Temperature Source Temporal Pulse Rate 102 H 102 H Respiratory Rate 17 17 Respiratory Effort Normal Non-Labored Respiratory Depth Respiratory Pattern Normal Blood Pressure 96/70 96/70 Blood Pressure Mean 78 78 Blood Pressure Source Blood Pressure Position Blood Pressure Location Pulse Ox 99 99 Oxygen Delivery Method Room Air 12/15/24 23:56 12/16/24 00:00 12/16/24 00:00 Temperature 98.3 F 98.4 F Temperature Source Oral Oral Pulse Rate 100 110 H Respiratory Rate 16 16 Respiratory Effort Normal Respiratory Depth Respiratory Pattern Blood Pressure 135/96 H 121/76 H Blood Pressure Mean 109 91 Blood Pressure Source Monitor Blood Pressure Position Semi-Fowlers Blood Pressure Location Left Arm Pulse Ox 97 95 Oxygen Delivery Method Room Air Room Air Room Air 12/16/24 05:19 Temperature Temperature Source Pulse Rate Respiratory Rate 16 Respiratory Effort Normal Respiratory Depth Normal Respiratory Pattern Normal Blood Pressure Blood Pressure Mean Blood Pressure Source Blood Pressure Position Blood Pressure Location Pulse Ox Oxygen Delivery Method Room Air Weight Weight: 145 lb 11.609 oz Body Mass Index (BMI) 23.4 Physical Exam Narrative General -A&Ox3, NAD, appears stated age. Vital signs stable, afebrile. Respiratory -normal work of breathing, no intercostal retractions. CV -pulses regular, brisk capillary refill ?4 limbs. Abdomen-soft, nontender, nondistended. No guarding, rigidity, rebound tenderness. Musculoskeletal/neurologic -full range of motion nontender throughout bilateral lower extremities with full sensation and strength in all dermatomes and myotomes. No midline cervical tenderness. Left upper extremity: Obvious effusion left wrist which is tender to palpation. Short arc range of motion pain is evident. Active flexion and extension 10 degrees respectively. No cellulitic rash or lesions other than obvious prior puncture site over the dorsal wrist. The left shoulder is minimally edematous. There is perhaps early induration over the anterior lateral left shoulder near the anterior head of the deltoid. I do not appreciate any fluctuance. She tolerates passive internal and external rotation well without obvious pain. Radial pulse 2+, prescriptively refill in the fingertips. Sensation and motor intact. Right upper extremity: Minimally tender over the right shoulder. Tolerates internal and external rotation passively well without obvious pain. No rashes or lesions. Sensation motor intact throughout. Radial pulse 2+ with brisk capillary fill in the fingertips. Lab / Micro Data 12/15/24 20:13 12/15/24 20:13 Labs: Laboratory Results - last 24 hr 12/15/24 20:13: WBC 5.6, RBC 4.12 L, Hgb 13.1, Hct 38.5, MCV 93.4, MCH 31.8, MCHC 34.0, RDW Std Deviation 43.5, RDW Coeff of Myla 12.7, Plt Count 169, MPV 10.9, Immature Gran % (Auto) 0.900, Neut % (Auto) 79.4 H, Lymph % (Auto) 11.1 L, [place] % (Auto) 7.5, Eos % (Auto) 0.9, Baso % (Auto) 0.2, Absolute Neuts (auto) 4.4, Absolute Lymphs (auto) 0.62 L, Nucleated RBC % 0, Differential Comment , Toxic Granulation 1+, Toxic Vacuolation 2+, Platelet Estimate ADEQUATE, Polychromasia 1+, Anisocytosis 1+, Target Cells RARE, Ovalocytes 1+, Bite Cells RARE, Crenated Cell 2+, Schistocytes RARE, ESR 59 H, Sodium 134, Potassium 3.7, Chloride Direct 98, Carbon Dioxide 19.8 L, Anion Gap 15, BUN 29 H, Creatinine 1.06, Estim Creat Clear Calc 55.48, Est GFR (MDRD) Non-Af 62, BUN/Creatinine Ratio 27.1 H, Glucose 122 H, Calcium 9.3, Magnesium 1.8, C-React Prot Ext Range 412.00 H 12/15/24 21:37: Fluid Source Cancelled, Fluid Color Cancelled, Fluid Appearance Cancelled, Fluid WBC Cancelled, Fluid RBC Cancelled, Fluid Tot Cell Count Cancelled, Fld Polynuclear WBCs # Cancelled, Fld Polynuclear WBCs % Cancelled, Fluid Mononuclear WBCs Cancelled, Fld Mononuclear WBCs % Cancelled, Fluid Neutrophils Cancelled, Fluid Lymphocytes Cancelled, Fluid Monocytes Cancelled, Fluid Plasma Cells Cancelled, Fluid Macrophages Cancelled, Fld Mesothelial Cells Cancelled, Fluid Other Cells Cancelled, Fluid Crystals Cancelled, Fluid Crystal Source Cancelled, Fl Crystal Path Review Cancelled, Fl Pathologist Comment Cancelled, Fluid Glucose Cancelled, Fluid Comment 2 Cancelled Imaging Radiology Impression Wrist X-Ray 12/15/24 20:11 IMPRESSION: No fracture or dislocation. Soft tissue swelling about the wrist as above. Changes of osteoarthrosis as above. Reading Location: [id number] Upper Extremity CT 12/15/24 22:03 IMPRESSION: No evidence of glenohumeral joint or acromioclavicular joint effusion identified by CT. There appears to be edema at the deltoid and rotator cuff with subcutaneous soft tissue stranding anterior to the biceps muscle and lower aspect of the deltoid muscle for example axial 70. Findings may be inflammatory or infectious. No soft tissue gas or focal fluid collection One or more dose reduction techniques were used (e.g., Automated exposure control, adjustment of the mA and/or kV according to patient size, use of iterative reconstruction technique). Reading Location: [facility] Assessment & Plan Assessment/Plan (1) Septic arthritis of wrist, left: QUALIFIERS: Septic arthritis organism: due to unspecified organism Qualified Code(s): M00.9 - Pyogenic arthritis, unspecified PLAN: Patient seen and examined. X-rays reviewed of the left wrist. Emergency room documentation reviewed. I discussed the fluid aspirate yield with the laboratory and they inform me they were only able to perform a Gram stain and culture which is pending. Due to the degree of continued swelling in the left wrist I recommended we perform a second arthrocentesis in hopes to yield enough fluid for cell count and crystal analysis. Patient was understanding wish to proceed. See below procedure note for details. She tolerated the arthrocentesis well without complication. Beny purulent fluid was aspirated. I recommended we proceed with surgery today for left wrist irrigation and debridement. I reviewed the risks, benefits, and alternatives to the procedure and patient wished to proceed with surgery. Continue with IV antibiotics. Procedure note: Left wrist arthrocentesis Verbal informed consent obtained. Dorsal left wrist was then prepped with chlorhexidine. An 18-gauge needle was then passed through the skin and subcutaneous tissue into the dorsal wrist capsule just distal to Boogie's tubercle. 1 to 1-1/2 cc of beny purulent fluid was aspirated. Needle was withdrawn and compression dressing applied. Patient tolerated the procedure well without apparent complication. Fluid was sent to the lab for cell count and crystal analysis. (2) Acute pain of left shoulder: PLAN: Left shoulder CT scan reviewed. No obvious effusion is appreciated. Early cellulitic changes are seen over the anterior lateral shoulder consistent with her exam. I recommended we watch her shoulder pain for the next 24 hours with continued IV antibiotic therapy. Clinical picture is certainly unusual, possibly explained by her baseline immunosuppression coupled with recent URI and prednisone therapy. Her right shoulder also appears to be developing questionable early cellulitis however it does not appear as mature clinically as the left. Consider advanced imaging if pain does not improve in the next 24 hours.
[2024-12-16 07:22] LABS: Absolute Lymphocyte Count 0.98 X10^3/uL (0.83-4.51); Absolute Neutrophil Count 8.4 X10^3/uL (2.0-7.7); Basophil# 0.02 X10^3/uL; Basophil% 0.2 % (0-1); Hematocrit 35.7 % (37-47); Hemoglobin 11.9 g/dL (12.0-15.0); Lymphocyte # 0.98 X10^3/ul (0.83-4.51); Lymphocyte % 9.7 % (19-41); Mean Corp Hgb Conc 33.3 g/dL (32-36); Mean Corpuscular Hgb 30.9 pg (27.0-32.0); Mean Corpuscular Volume 92.7 fL (81-99); Mean Platelet Vol. 11.2 fl (6.2-12.0); Monocyte# 0.57 X10^3/uL; Monocyte% 5.6 % (0-10); NRBC Flagged by Analyzer 0 % (0-5); Neutrophil # 8.43 X10^3/uL (2.7-7.7); Neutrophil % 83.6 % (47-70); POSITIVE MORPHOLOGY YES; Platelet Count 177 K/mm3 (150-450); RBC Distribution Width CV 12.7 % (11.6-14.6); RBC Distribution Width SD 43.2 fl (35.1-43.9); Red Blood Count 3.85 M/mm3 (4.2-5.4); White Blood Count 10.1 K/mm3 (4.4-11.0)
[2024-12-16 07:23] LABS: Differential Indicated SCAN CRITERIA MET
[2024-12-16 08:27] LABS: ALB/GLOB Ratio 0.8 RATIO (0.9-2.4); AST(SGOT) 86 U/L (<=31); Alanine Aminotransfer ALT/SGPT 52 U/L (<=34); Albumin, Serum 2.9 g/dL (3.5-5.0); Alkaline Phosphatase 69 U/L (35-104); Anion Gap 15 (5-15); BUN 29 mg/dL (4-19); BUN/Creat Ratio 36.5 RATIO (10-20); Calcium 8.9 mg/dL (7.6-11.0); Carbon Dioxide 19.5 mmol/L (22.0-29.0); Chloride 98 mmol/L (96-108); Creatinine, Serum 0.79 mg/dL (0.70-1.20); EST Glomerular Filtration Rate 87 (>60); Estimated Creatinine Clearance 74.44 ml/min; Globulin 3.5 g/dL (2.2-4.2); Glucose 103 mg/dL (70-99); Potassium 4.2 mmol/L (3.3-5.1); Protein, Total 6.4 g/dL (5.9-8.4); Sodium Level 132 mmol/L (133-145); Total Bilirubin 1.63 mg/dL (0.00-1.30)
[2024-12-16 09:04] LABS: Phosphorus 2.9 mg/dL (2.7-4.5)
--- NOTE | 2024-12-16 09:43 | CASEMGMT ---
CHEIKH LAY Assessment: Face to Face with pt for initial transition planning/care coordination assessment. CHEIKH LAY introduced self and role at [facility], pt voices understanding and consents to assessment. Pt is A&O x4 and answers all questions appropriately at this time. Pt sitting up in bed in no distress with brother and usha at bedside. Pt agreeable to assessment with family present. Care providers, pharmacy, and demographics verified/updated. Admitting Dx: septic arthritis of the left wrist Strata Score: 2 PCP:Becky Ireland Specialists:marysol Corral; Chantel Luis onc Preferred Pharmacy: [facility] Insurance: [employer] [facility] Prescription Benefit: yes LNOK: Noah Burkett, brother; Luca Burkett, brother Living Arrangements: Pt lives alone in a second story apt with 20-30 steps to enter with a rail on one side. Pt reports she is I in ADLs/IADLs and denies concerns at home. Transportation: Pt drives self and denies concerns with transportation. DME:Denies HHC/SNF: Denies hx of Pt states no concerns with going home at time of dc. Pt states no further concerns/needs. Pt to have irrigation and debridement today. CM to follow. Advised pt to ask CM if any further questions/concerns/needs arise, voices understanding. Pt Goal: Home Plan: Home, follow for any wound care or if ID consulted Stiven SALAMANCA CM
[2024-12-16] MEDS: Vancomycin HCl 750 MG in 0.9% Normal Saline (250mL Bag) 250 ML 250 MG IV (11:38)
--- NOTE | 2024-12-16 12:10 | PCM.PN.HOSP ---
Subjective Subjective Doing well, no issues overnight. Has little bit of a cellulitis on her left upper extremity. Left wrist is wrapped Objective Data Objective Data Vital Signs: Vital Signs Temp Pulse Resp BP Pulse Ox O2 Del Method 99.1 F 113 H 16 134/60 H 92 Room Air 12/16/24 11:33 12/16/24 11:33 12/16/24 11:33 12/16/24 11:33 12/16/24 11:33 12/16/24 11:33 Oxygen Delivery Method Room Air Weight: 145 lb 11.609 oz Body Mass Index (BMI) 23.4 Intake & Output: Intake and Output for Last 24 Hours 12/15/24 12/16/24 12/17/24 03:59 03:59 03:59 Intake Total 250 / 250 Balance 250 / 250 Lab / Micro Data 12/16/24 07:03 12/16/24 07:03 Labs: Laboratory Results - last 24 hr 12/15/24 20:13: WBC 5.6, RBC 4.12 L, Hgb 13.1, Hct 38.5, MCV 93.4, MCH 31.8, MCHC 34.0, RDW Std Deviation 43.5, RDW Coeff of Myla 12.7, Plt Count 169, MPV 10.9, Immature Gran % (Auto) 0.900, Neut % (Auto) 79.4 H, Lymph % (Auto) 11.1 L, [place] % (Auto) 7.5, Eos % (Auto) 0.9, Baso % (Auto) 0.2, Absolute Neuts (auto) 4.4, Absolute Lymphs (auto) 0.62 L, Nucleated RBC % 0, Differential Comment , Toxic Granulation 1+, Toxic Vacuolation 2+, Platelet Estimate ADEQUATE, Polychromasia 1+, Anisocytosis 1+, Target Cells RARE, Ovalocytes 1+, Bite Cells RARE, Crenated Cell 2+, Schistocytes RARE, ESR 59 H, Sodium 134, Potassium 3.7, Chloride Direct 98, Carbon Dioxide 19.8 L, Anion Gap 15, BUN 29 H, Creatinine 1.06, Estim Creat Clear Calc 55.48, Est GFR (MDRD) Non-Af 62, BUN/Creatinine Ratio 27.1 H, Glucose 122 H, Calcium 9.3, Magnesium 1.8, C-React Prot Ext Range 412.00 H 12/15/24 21:37: Fluid Source Cancelled, Fluid Color Cancelled, Fluid Appearance Cancelled, Fluid WBC Cancelled, Fluid RBC Cancelled, Fluid Tot Cell Count Cancelled, Fld Polynuclear WBCs # Cancelled, Fld Polynuclear WBCs % Cancelled, Fluid Mononuclear WBCs Cancelled, Fld Mononuclear WBCs % Cancelled, Fluid Neutrophils Cancelled, Fluid Lymphocytes Cancelled, Fluid Monocytes Cancelled, Fluid Plasma Cells Cancelled, Fluid Macrophages Cancelled, Fld Mesothelial Cells Cancelled, Fluid Other Cells Cancelled, Fluid Crystals Cancelled, Fluid Crystal Source Cancelled, Fl Crystal Path Review Cancelled, Fl Pathologist Comment Cancelled, Fluid Glucose Cancelled, Fluid Comment 2 Cancelled 12/16/24 07:03: WBC 10.1, RBC 3.85 L, Hgb 11.9 L, Hct 35.7 L, MCV 92.7, MCH 30.9, MCHC 33.3, RDW Std Deviation 43.2, RDW Coeff of Myla 12.7, Plt Count 177, MPV 11.2, Immature Gran % (Auto) 0.900, Neut % (Auto) 83.6 H, Lymph % (Auto) 9.7 L, [place] % (Auto) 5.6, Eos % (Auto) 0.0, Baso % (Auto) 0.2, Absolute Neuts (auto) 8.4 H, Absolute Lymphs (auto) 0.98, Nucleated RBC % 0, Sodium 132 L, Potassium 4.2, Chloride Direct 98, Carbon Dioxide 19.5 L, Anion Gap 15, BUN 29 H, Creatinine 0.79, Estim Creat Clear Calc 74.44, Est GFR (MDRD) Non-Af 87, BUN/Creatinine Ratio 36.5 H, Glucose 103 H, Calcium 8.9, Phosphorus 2.9, Total Bilirubin 1.63 H, AST 86 H, ALT 52 H, Alkaline Phosphatase 69, Total Protein 6.4, Albumin 2.9 L, Globulin 3.5, Albumin/Globulin Ratio 0.8 L, TSH 1.340 Micro: Microbiology 12/15/24 21:37 Fluid - Synovial (joint) Gram Stain - Preliminary 12/15/24 22:21 Blood Culture (Wb) - Right Forearm Blood Culture - Preliminary 12/15/24 22:21 Blood Culture (Wb) - Anticubital Right Blood Culture - Preliminary Radiography Diagnostic Testing: Radiology Impression Wrist X-Ray 12/15/24 20:11 IMPRESSION: No fracture or dislocation. Soft tissue swelling about the wrist as above. Changes of osteoarthrosis as above. Reading Location: [facility] Upper Extremity CT 12/15/24 22:03 IMPRESSION: No evidence of glenohumeral joint or acromioclavicular joint effusion identified by CT. There appears to be edema at the deltoid and rotator cuff with subcutaneous soft tissue stranding anterior to the biceps muscle and lower aspect of the deltoid muscle for example axial 70. Findings may be inflammatory or infectious. No soft tissue gas or focal fluid collection One or more dose reduction techniques were used (e.g., Automated exposure control, adjustment of the mA and/or kV according to patient size, use of iterative reconstruction technique). Reading Location: [facility] Physical Exam Narrative General: Alert, Oriented x3, Cooperative, No apparent distress HEENT: Atraumatic, PERRLA, EOMI, Normocephalic Oral: Moist Mucosa Neck: Supple, No JVD Lungs: Diminished, Normal air movement, No rhonchi, No wheeze, No rales Cardiovascular: Tachycardic, Regular Rhythm, Normal S1, Normal S2, No murmurs Abdomen: Soft, Non Tender, Non-Distended, No Hepato-splenomegaly Extremities: No edema, Capillary Refill Less than 3 Seconds Skin: Left upper extremity demarcated cellulitis her left bicep, left wrist is dressed Musculoskeletal: No Tenderness to Palpation of Joints or Extremities Neurological: No focal neurological deficits, Motor Exam 5/5 strength throughout, Sensory exam intact to light touch and pain Psych/Mental Status: Normal Affect, Appropriate Assessment & Plan Assessment/Plan (1) Septic arthritis of wrist, left: QUALIFIERS: Septic arthritis organism: due to unspecified organism Qualified Code(s): M00.9 - Pyogenic arthritis, unspecified (2) Influenza A: PLAN: Plan 1. Septic arthritis with left upper extremity cellulitis ? Continue with vancomycin and will transition to Zosyn given the septic arthritis ? Blood cultures are showing gram-negative sunitha will wait for identification and sensitivities before making antibiotic changes ? Appreciate orthopedic surgery's assistance plan for intervention today ? CRP on admission of 412, fluid from the wrist was drained but I do not see it having been sent for lab it was described is beny purulence and Gram stain on that fluid is demonstrating 3+ gram-negative sunitha 2. Influenza A ? She is maintaining her oxygen saturations on room air, been about 6 days since her symptom onset ? She was taking steroids as an outpatient, will discontinue given her current infection status 3. 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 Will hold her leflunomide and hydroxychloroquine and certolizumab until infection has been contained 4. Iron deficiency anemia ? Continue with iron replacement when able to take p.o. DVT: SCDs Charges/Coding Visit Charges Inpatient E&M: 79381 Subs Hosp L2
[2024-12-16] MEDS: Piperacil/Tazobactam 3.375 GM in 0.9% Normal Saline (50mL MB+) 50 ML IV ×2 (12:58→22:09)
--- NOTE | 2024-12-16 14:00 | RAD_ITS ---
PROCEDURE: SHOULDER ONE VIEW REASON FOR EXAM: Left shoulder aspiration. TECHNIQUE: One (1) view of each shoulder COMPARISON: None. FINDINGS: Fluoroscopic services provided for left shoulder aspiration. RAD/Shoulder One View IMPRESSION: Fluoroscopic services provided for left shoulder aspiration. Reading Location: [id number]
--- NOTE | 2024-12-16 14:32 | PCM.PRE.AN2 ---
ASA Classification* ASA Classification ASA Classification: 2 and E Assessment & Plan Anesthesia* Anesthesia Assessment Anesthesia Assessment: Discussed sedation and/or anesthesia options, risks, benefits, and alternatives with patient/parents/legal guardian/POA. Questions invited. The patient/parents/legal guardian/POA seems to understand and agrees to proceed with anesthesia plan. Reviewed the physical assessment, medical history, allergy history and patient home medications list prior to surgery/procedure/anesthetic and documented any changes. Performed airway and anesthesia risk assessments. Anesthesia Type Anesthesia Type: General History Source History Obtained from:: Patient and Chart Anesthesia Focused Assessment* Temperature: 99.1 F Pulse Rate: 113 Blood Pressure: 134/60 Respiratory Rate: 16 Pulse Ox: 92 Oxygen Delivery Method: Room Air Airway Assessment Mouth opens: >3 cm Mallampati Score: III Teeth Condition: Intact Neck Range of motion (ROM): Full ROM Focused Labs Anesthesia Preop lab: CBC WBC 10.1 K/mm3 (4.4-11.0) 12/16/24 07:03 12/16/24 RBC 3.85 M/mm3 (4.2-5.4) L 12/16/24 07:03 12/16/24 Hgb 11.9 g/dL (12.0-15.0) L 12/16/24 07:03 12/16/24 Hct 35.7 % (37-47) L 12/16/24 07:03 12/16/24 Plt Count 177 K/mm3 (150-450) 12/16/24 07:03 12/16/24 CHEMISTRY Potassium 4.2 mmol/L (3.3-5.1) 12/16/24 07:03 12/16/24 Sodium 132 mmol/L (133-145) L 12/16/24 07:03 12/16/24 Magnesium 1.8 mg/dL (1.5-2.2) 12/15/24 20:13 12/15/24 Phosphorus 2.9 mg/dL (2.7-4.5) 12/16/24 07:03 12/16/24 BUN 29 mg/dL (4-19) H 12/16/24 07:03 12/16/24 Creatinine 0.79 mg/dL (0.70-1.20) 12/16/24 07:03 12/16/24 Glucose 103 mg/dL (70-99) H 12/16/24 07:03 12/16/24 TSH 1.340 uIU/mL (0.300-4.200) 12/16/24 07:03 12/16/24 COAG Pre-Assessment Diagnosis/Proposed Procedure Planned Operative Procedure(s): Incision and drainage of left wrist Anesthesia History Anesthesia History - tobacco roller: Anesthesia History - tobacco roller Hx Hospitalization No 02/21/20 09:53 Any Problems With Anesthesia No 12/16/24 07:59 Cholinesterase deficiency No 12/16/24 07:59 You/Your Family Experience No 12/16/24 07:59 fever (hyperthermia) with Relationship Recent Exposure to Contagious No 12/16/24 07:59 Disease Does patient have nerve No 12/16/24 07:59 stimulator Patient instructed to have No 12/16/24 07:59 device shut off --Does patient have Pacemaker No 12/16/24 13:53 or ICD? When Was Last Pacemaker Check QUESTION #4 FULL TEXT: You/Your Family Experience fever (hyperthermia) with Anesthesia Last Oral Intake Last Oral intake: Last Oral Intake NPO since 00:00 12/16/24 13:53 Meds taken in AM with sips of No 12/16/24 13:53 water? Meds patient instructed to take am of surgery PONV PONV - tobacco roller: PONV - tobacco roller Female HX of Motion Sickness HX of N/V After Surgery Non-Smoker Duration of Surgery greater than 60 minutes Number of Risk Factors PONV Score Height & Weight Height & Weight: Anesthesia: Height & Weight Height 5 ft 6 in 12/16/24 13:53 Weight: 66.1 kg 12/16/24 13:53 Body Mass Index (BMI) 23.5 12/16/24 13:53 Respiratory Assessment Respiratory Assessment - tobacco roller: Respiratory Tract Infection Hx - tobacco roller Hx Respiratory Tract Infection Yes: flu a, 12/15/24 12/16/24 07:59 STOP Sleep Apnea STOP Sleep Apnea - tobacco roller: STOP Sleep Apnea - tobacco roller Hx Hypertension No 12/15/24 23:46 Hx Sleep Apnea No 12/15/24 23:46 CPAP BIPAP Do you snore loudly (louder No 12/15/24 23:46 than talking or can be heard Do you often feel tired/ No 12/15/24 23:46 fatigued/ sleepy during daytime? Has anyone observed you stop No 12/15/24 23:46 breathing during sleep? STOP Results Negative 12/15/24 23:46 QUESTION #5 FULL TEXT : Do you snore loudly (louder than talking or can be heard through closed doors)? 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 Specify any problems Hx of Preganancy in last 3 N/A 12/15/24 23:46 Months Nurse Filling Out Transfusion [email or web address] 12/15/24 23:46 & Questions: Date: 12/15/24 12/15/24 23:46 Time: 23:53 12/15/24 23:46 Patient unable to answer at this time (ie. confused, unrespo /Reproduction History /Reproductive History - tobacco roller: /Reproductive Hx- tobacco roller Hx Now No 12/16/24 07:59 Gestational Age (in weeks): EDC: Hx Hx Para Hx Section SAB No 12/16/24 07:59 Active Medications Active Medications: Current Medications Generic Name Dose Route Start Last Admin Trade Name Freq PRN Reason Stop Dose Admin Acetaminophen 650 mg 12/15/24 23:46 Acetaminophen 325 Mg Tablet PO Q6H PRN PRN Pain 1-5/10 or Fever Sodium Chloride 1,000 mls @ 100 mls/hr 12/15/24 22:36 12/15/24 23:08 IV 12/16/24 20:59 100 mls/hr .Q10H AVRIL Administration Protocol Vancomycin IV-PHARMACY TO DOSE 500 mls @ 250 mls/hr 12/15/24 23:46 1 each/ Sodium Chloride IV PRN PRN Rx to Dose Protocol Sodium Chloride 100 mls @ 15 mls/hr 12/15/24 23:56 IV .Q6H40M PRN Saline Flush Sodium Chloride 100 mls @ 15 mls/hr 12/15/24 23:56 IV .Q6H40M PRN Additional IVPB Infusion Vancomycin HCl 750 mg/ Sodium 265 mls @ 250 mls/hr 12/16/24 11:00 12/16/24 12:44 Chloride IV Infused Q12H AVRIL Infusion Piperacillin Sod/Tazobactam 50 mls @ 12.5 mls/hr 12/16/24 12:30 12/16/24 12:58 Sod 3.375 gm/ Sodium Chloride IV 12.5 mls/hr Q8 AVRIL Administration Morphine Sulfate 2 mg 12/15/24 23:46 12/16/24 02:43 Morphine 2 Mg/Ml Syringe IV 2 mg Q4H PRN PRN Administration Pain Score 6-10 Ondansetron HCl 4 mg 12/15/24 23:46 Ondansetron 4 Mg/2 Ml Vial IV Q8H PRN PRN NAUSEA/VOMITING Sodium Chloride 10 - 40 ml 12/15/24 23:56 0.9% Saline Lock 10 Ml Syringe IV UD PRN SALINE FLUSH Vancomycin Protocol 1 lab 12/17/24 08:30 Vancomycin Trough/Random Due 12/17/24 12:30 DAILY AVRIL PFSH Medical History BRCA gene positive Breast cancer metastasized to axillary lymph node Breast cancer, right breast Rheumatoid arthritis Home Medications ?Medication ?Instructions ?Recorded ?Last Taken ?Type multivitamin 1 tab PO DAILY general health 11/29/18 Unknown History anastrozole 1 mg tablet 1 mg PO DAILY arthritis 10/13/19 Unknown History ferrous sulfate 325 mg (65 mg 325 mg PO DAILY anemia 10/13/19 Unknown History iron) tablet leflunomide 10 mg tablet (Arava) 20 mg PO DAILY arthritis 12/19/19 Unknown History calcium 500 mg (as 1 ea PO BID def. 02/21/20 Unknown History carbonate)-vitamin D3 15 mcg (600 unit) tablet certolizumab pegol 400 mg/2 mL 200 mg subcut Q2W arthritis 12/31/20 Unknown History (200 mg/mL x2) subcutaneous syringe kit (Cimzia) hydroxychloroquine 200 mg tablet 200 mg PO BID arthritis 07/09/21 Unknown History hydrocortisone 2.5 % topical 1 applic topical BID PRN perineal 12/15/24 Unknown History ointment area leflunomide 20 mg tablet 20 mg PO DAILY arthritis 12/15/24 Unknown History prednisone 10 mg tablet 20 mg PO BID swollen neck 12/15/24 Unknown History prednisone 20 mg tablet 20 mg PO BID swollen neck 12/15/24 Unknown History Allergy/AdvReac Type Severity Reaction Status Date / Time No Known Allergies Allergy Verified 12/15/24 19:45 Family History Son Diabetes Grandfather Heart disease Mother Cancer possible throat cancer (Went through radiation) Father Cancer lung Surgical History S/P bilateral salpingo-oophorectomy S/P breast reconstruction S/P bilateral mastectomy Status post right breast lumpectomy (~12/2018) History of tonsillectomy Social History household members: none housing: apartment current occupational status: employed Smoking Status: Never smoker alcohol intake: current alcohol intake frequency: holidays/special occasions only substance use type: does not use caffeine: Yes what type of physical activity do you participate in: walking and aerobics frequency: 5-6 times per week seatbelt use: always do you feel safe at home: Yes additional social history: Patient works at [employer] Review of Systems (Anesthesia) ROS Narrative System reviewed and no additional complaints, except as documented.
--- NOTE | 2024-12-16 15:05 | RAD_ITS ---
PROCEDURE: SHOULDER ONE VIEW REASON FOR EXAM: Right shoulder aspiration. TECHNIQUE: One (1) view of each shoulder COMPARISON: None. FINDINGS: Intraoperative imaging provided for right shoulder aspiration. RAD/Shoulder One View IMPRESSION: Fluoroscopic services provided for right shoulder aspiration. Reading Location: [id number]
[2024-12-16] MEDS: Bupiv/Epi 0.25% 30 ML Vial (15:50)
--- NOTE | 2024-12-16 16:04 | PCM.POST.ANE ---
Anesthesia: Postop Eval I Current Vital Signs Temperature: 99 F Pulse Rate: 110 Blood Pressure: 120/67 Respiratory Rate: 18 Pulse Ox: 99 Oxygen Delivery Method: Room Air Assessment Airway patent: Yes Spontaneous unlabored respirations: Yes Mental status: Awake and Calm nausea: No Vomiting: No Anesthesia Complication: No Fluid Hydration Crystalloid volume administer (ml): 800 Total IV fluid infused: 800 Progress Note Anesthesia document: Postop Eval 1 completed: Yes
--- NOTE | 2024-12-16 16:29 | OP.PCM_ITS ---
Operative Report (Standard) Operative Information Date of Procedure: 12/16/24 Pre-Operative Diagnosis: 1. Left wrist septic arthritis 2. Left shoulder pain, concern for septic arthritis 3. Right shoulder pain, concern for septic arthritis Post-Operative Diagnosis: 1. Left wrist septic arthritis 2. Left shoulder pain, concern for septic arthritis 3. Right shoulder pain, concern for septic arthritis Surgery/Procedure Performed: 1. Left wrist irrigation and debridement with synovectomy 2. Left shoulder arthrocentesis under fluoroscopic guidance 3. 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 Type of Anesthesia: General RN Documented Start/Stop Times: Operation Date: 12/16/24 08:00 Case Time Into Pre-Op 12/16/24 14:01 Anesthesia Start 12/16/24 14:58 Into Room 12/16/24 14:58 Procedure Start 12/16/24 15:08 Procedure End 12/16/24 15:55 Anesthesia End 12/16/24 16:00 Out of Room 12/16/24 16:00 Into Recovery 12/16/24 16:05 Procedure Start Time: 15:08 Procedure Stop Time: 15:55 Select all DRAINS/GRAFTS/IMPLANTS that apply: None Estimated Blood Loss: 10 cc Specimen collected: Yes Description of specimen(s) removed: Left shoulder synovial fluid culture Right shoulder synovial fluid culture Left wrist synovial fluid culture Description of surgery: Patient was identified in the preoperative holding area by name, medical record number, and date of . The operative extremity was marked. All questions were answered to the patient's satisfaction. At time of her procedure, patient was brought to the operative suite and positioned supine on a standard operating table. General anesthesia was induced and LMA was placed. Tube was secured. I then brought in the C arm to perform arthrocentesis of bilateral shoulders. Anterior shoulders were prepped with chlorhexidine. We then performed a timeout confirming the sides, sites and operations to be performed. No concerns were voiced with to proceed with surgery. Patient was not due for her scheduled Zosyn or vancomycin during the surgical procedure no additional antibiotics were administered. 18-gauge needle was then inserted into the glenohumeral joint of the left and subsequently the right shoulder. Left shoulder yielded less than 1 cc of turbid fluid which was sent for culture. The right shoulder aspirate was dry. Band-Aids were applied after the needles were withdrawn. I then turned my attention to the left wrist. Well-padded pneumatic tourniquet was applied to the left forearm. Arm was positioned on a hand table. We prepped and draped the left hand and wrist in a normal, sterile orthopedic fashion. I then elevated the left hand for 1 minute and then inflated the tourniquet to 250 mmHg for approximately 20 minutes. Standard dorsal approach to the wrist was performed in line with Boogie's tubercle. Extensor retinaculum was opened in line with the incision. The extensor pollicis longus tendon was then retracted radially. Purulent fluid was encountered in the area of the arthrocentesis in the subcutaneous plane. There was no obvious fluid within the third, second or fourth dorsal compartments. A 1 cm longitudinal arthrotomy was then performed and dorsal wrist capsule identified the scapholunate interval. Colin pus was encountered. Dorsal synovectomy was performed with combination of rongeur and scissors. The radiocarpal and midcarpal joints were then thoroughly irrigated with 3 L normal saline via cystoscopy tubing. The capsule was then closed with interrupted [id number] 3-0 PDS suture. Extensive at retinaculum was repaired with interrupted [id number] 3-0 PDS suture. Dermis was reapproximated buried 3-0 PDS suture and skin finally approximated with a running baseball stitch 3-0 nylon. Bulky sterile compression dressing was applied. Patient was placed in a resting splint of the wrist. She is awake from anesthesia and safely ectopy in the operative suite. She was transferred to her hospital bed and subsequently PACU in stable condition. Postoperative plan: Maintain splint until tomorrow. Plan to reevaluate the left wrist as well as bilateral shoulders. Provisionally I will make the patient n.p.o. after midnight tonight for possible I&D of the left shoulder as the fluid was concerning for infection. Her clinical picture is quite unusual with multiple joints being affected however her recent viral infection in the setting of baseline immunosuppression secondary to antirheumatic medication obviously increases her risk of infection including septic arthritis. Continue antibiotics. Follow cultures. Oxycodone ordered as well as scheduled Tylenol. Aspirin ordered for DVT prophylaxis at this time, if no surgical invention ruth orrow likely formal anticoagulant prophylaxis will be ordered. Will follow. Surgical Findings: Colin purulence of the left wrist consistent with septic arthritis. Concerning fluid in the left shoulder. Pending Gram stain and culture. Dry aspirate right shoulder Complications Complications: No Admit VTE Documentation VTE Present on Admission: No VTE Mechan Device Prophylaxis: SCD's VTE Pharm Prophylaxis ordered?: Yes
--- NOTE | 2024-12-16 18:43 | POSTOPAN2_ITS ---
Anesthesia Postop Eval I Sum Postop Eval Completion status Anesthesia document: Postop Eval 1 completed: Yes Anesthesia Postop Eval I Summary Anesthesia Postop Eval I Summary: Anesthesia Postop Eval I: Assessment Summary Airway patent Yes 12/16/24 16:05 DRY CANS OPERATOR.MDOT Spontaneous unlabored Yes 12/16/24 16:05 DRY CANS OPERATOR.MDOT respirations Mental status Awake,Calm 12/16/24 16:05 DRY CANS OPERATOR.MDOT nausea No 12/16/24 16:05 DRY CANS OPERATOR.MDOT Vomiting No 12/16/24 16:05 DRY CANS OPERATOR.MDOT Anesthesia Postop Eval I: Fluid Summary Crystalloid volume administer 800 12/16/24 16:05 DRY CANS OPERATOR.MDOT (ml) Colloids volume administered ( ml) Blood Product volume administered (ml) Total IV fluid infused 800 12/16/24 16:05 DRY CANS OPERATOR.MDOT Anesthesia Postop Eval I: Summary Notes Anesthesia Complication No 12/16/24 16:05 DRY CANS OPERATOR.MDOT Anesthesia Complication Comment: Post-operative progress note Anesthesia: Postop Eval II Evaluation Mental status: Awake and Calm Pain Level: 1 nausea: No Vomiting: No Complications Anesthesia Complication: No
--- NOTE | 2024-12-16 18:43 | PCM.POSTANE2 ---
Anesthesia Postop Eval I Sum Postop Eval Completion status Anesthesia document: Postop Eval 1 completed: Yes Anesthesia Postop Eval I Summary Anesthesia Postop Eval I Summary: Anesthesia Postop Eval I: Assessment Summary Airway patent Yes 12/16/24 16:05 MOTTLER MACHINE FEEDER.MDOT Spontaneous unlabored Yes 12/16/24 16:05 MOTTLER MACHINE FEEDER.MDOT respirations Mental status Awake,Calm 12/16/24 16:05 MOTTLER MACHINE FEEDER.MDOT nausea No 12/16/24 16:05 MOTTLER MACHINE FEEDER.MDOT Vomiting No 12/16/24 16:05 MOTTLER MACHINE FEEDER.MDOT Anesthesia Postop Eval I: Fluid Summary Crystalloid volume administer 800 12/16/24 16:05 MOTTLER MACHINE FEEDER.MDOT (ml) Colloids volume administered ( ml) Blood Product volume administered (ml) Total IV fluid infused 800 12/16/24 16:05 MOTTLER MACHINE FEEDER.MDOT Anesthesia Postop Eval I: Summary Notes Anesthesia Complication No 12/16/24 16:05 MOTTLER MACHINE FEEDER.MDOT Anesthesia Complication Comment: Post-operative progress note Anesthesia: Postop Eval II Evaluation Mental status: Awake and Calm Pain Level: 1 nausea: No Vomiting: No Complications Anesthesia Complication: No
[2024-12-16] MEDS: Celecoxib 200 MG Capsule PO (21:53)
[2024-12-16] MEDS: Acetaminophen 500 MG Tablet 1000 MG PO (21:53)
[2024-12-16] MEDS: Aspirin 81 MG TAB.CHEW PO (21:53)
[2024-12-17] VITALS (16 sets, daily range): BP systolic 123–147; BP diastolic 69–80; PULSE 77–100; RESP 15–18; TEMP 36.2–36.8; O2SAT 92–96; BMI 24.8; BMI 25.0
[2024-12-17] MEDS: 0.9% Normal Saline (1000mL) 1,000 ML 100 ML IV
[2024-12-17] MEDS: Vancomycin HCl 750 MG in 0.9% Normal Saline (250mL Bag) 250 ML 250 MG IV ×2 (00:03→12:39)
[2024-12-17] MEDS: Piperacil/Tazobactam 3.375 GM in 0.9% Normal Saline (50mL MB+) 50 ML IV ×3 (06:02→23:26)
[2024-12-17] MEDS: Acetaminophen 500 MG Tablet 1000 MG PO ×3 (06:04→21:45)
[2024-12-17 07:04] LABS: Phosphorus 2.4 mg/dL (2.7-4.5)
--- NOTE | 2024-12-17 09:26 | PCM.PN.ORT ---
Subjective Subjective Patient seen and examined. Reports no pain in her left wrist. Reports pain with repositioning of the left shoulder and to a lesser degree the right shoulder. Denies any other aches and pains. Denies fevers or chills, nausea or vomiting, chest pain or shortness of breath. N.p.o. since midnight. Objective Data Objective Data Vital Signs: Vital Signs Temp Pulse Resp BP Pulse Ox O2 Del Method O2 Flow Rate 98 F 94 16 136/74 H 94 Room Air 2 12/17/24 08:14 12/17/24 08:14 12/17/24 08:14 12/17/24 08:14 12/17/24 08:14 12/17/24 08:14 12/17/24 04:26 Oxygen Flow Rate (L/min) 2 Oxygen Delivery Method Room Air Weight: 154 lb 12.232 oz Body Mass Index (BMI) 25.0 Intake & Output: Intake and Output for Last 24 Hours 12/15/24 12/16/24 12/17/24 23:59 23:59 23:59 Intake Total 50 / 50 1765 / 1765 315.00 / 315.00 Balance 50 / 50 1765 / 1765 315.00 / 315.00 Lab / Micro Data 12/16/24 07:03 12/16/24 07:03 Labs: Laboratory Results - last 24 hr 12/17/24 05:44: Phosphorus 2.4 L Micro: Microbiology 12/16/24 Unknown Incision/Surgical Site Gram Stain - Final 12/16/24 Unknown Incision/Surgical Site Gram Stain - Final 12/15/24 21:37 Fluid - Synovial (joint) Gram Stain - Final 12/15/24 21:37 Fluid - Synovial (joint) Body Fluid Culture - Preliminary Gram negative sunitha 12/15/24 22:21 Blood Culture (Wb) - Right Forearm Blood Culture - Preliminary 12/15/24 22:21 Blood Culture (Wb) - Anticubital Right Blood Culture - Preliminary Radiography Diagnostic Testing: Radiology Impression Shoulder X-Ray 12/16/24 14:00 IMPRESSION: Fluoroscopic services provided for left shoulder aspiration. Reading Location: [id number] Shoulder X-Ray 12/16/24 15:05 IMPRESSION: Fluoroscopic services provided for right shoulder aspiration. Reading Location: [id number] Physical Exam Narrative General -A&Ox3, NAD, appears stated age. Vital signs stable, afebrile. Respiratory -normal work of breathing, no intercostal retractions. CV -pulses regular, brisk capillary refill ?4 limbs. Abdomen-soft, nontender, nondistended. No guarding, rigidity, rebound tenderness. Musculoskeletal/neurologic -full range of motion nontender throughout bilateral lower extremities with full sensation and strength in all dermatomes and myotomes. No midline cervical tenderness. Left upper extremity: Left wrist splint clean dry and intact. Cardinal motions left hand are intact. Prescriptively refill in fingertips. She tolerates passive internal and external rotation well without obvious pain. Active and passive forward flexion elicits severe pain left shoulder. Cellulitic rash improved. Sensation and motor intact. Right upper extremity: Minimally tender over the right shoulder. Tolerates internal and external rotation passively well without obvious pain. Moderate pain with forward flexion actively and passively. No rashes or lesions. Sensation motor intact throughout. Radial pulse 2+ with brisk capillary fill in the fingertips. Assessment & Plan Assessment/Plan (1) Septic arthritis of shoulder, left: QUALIFIERS: Septic arthritis organism: due to unspecified organism Qualified Code(s): M00.9 - Pyogenic arthritis, unspecified PLAN: Aspirate results from yesterday yielded gram-negative bacteria on Gram stain consistent with septic arthritis. Plan to proceed with arthroscopic irrigation and debridement left shoulder this morning. Risks, benefits, alternatives to procedure were reviewed with the patient at length and she agreed to proceed. Continue IV antibiotics. (2) Septic arthritis of wrist, left: QUALIFIERS: Septic arthritis organism: due to unspecified organism Qualified Code(s): M00.9 - Pyogenic arthritis, unspecified PLAN: POD# 1 s/p left wrist I&D -Plan to remove splint intraoperatively. Plan to allow active and passive range of motion. We will immobilize the left upper extremity with a sling as needed. Ice and elevation. Continue IV antibiotics. Sensitivities pending. (3) Acute pain of right shoulder: PLAN: Plan for repeat arthrocentesis in the operative suite today. Concern for developing septic arthritis. Informed consent obtained. Continue IV antibiotics.
--- NOTE | 2024-12-17 09:27 | PRE.ANES_ITS ---
ASA Classification* ASA Classification ASA Classification: 3 and E Assessment & Plan Anesthesia* Anesthesia Assessment Anesthesia Assessment: Discussed sedation and/or anesthesia options, risks, benefits, and alternatives with patient/parents/legal guardian/POA. Questions invited. The patient/parents/legal guardian/POA seems to understand and agrees to proceed with anesthesia plan. Reviewed the physical assessment, medical history, allergy history and patient home medications list prior to surgery/procedure/anesthetic and documented any changes. Performed airway and anesthesia risk assessments. Anesthesia Type Anesthesia Type: General Anesthesia Focused Assessment* Temperature: 98 F Pulse Rate: 94 Blood Pressure: 136/74 Respiratory Rate: 16 Pulse Ox: 94 Oxygen Flow Rate (L/min): 2 Airway Assessment Mouth opens: >3 cm Mallampati Score: II Focused Labs Anesthesia Preop lab: CBC WBC 10.1 K/mm3 (4.4-11.0) 12/16/24 07:03 12/16/24 RBC 3.85 M/mm3 (4.2-5.4) L 12/16/24 07:03 12/16/24 Hgb 11.9 g/dL (12.0-15.0) L 12/16/24 07:03 5 Hct 35.7 % (37-47) L 12/16/24 07:03 12/16/24 Plt Count 177 K/mm3 (150-450) 12/16/24 07:03 12/16/24 CHEMISTRY Potassium 4.2 mmol/L (3.3-5.1) 12/16/24 07:03 12/16/24 Sodium 132 mmol/L (133-145) L 12/16/24 07:03 12/16/24 Magnesium 1.8 mg/dL (1.5-2.2) 12/15/24 20:13 12/15/24 Phosphorus 2.4 mg/dL (2.7-4.5) L 12/17/24 05:44 12/17/24 BUN 29 mg/dL (4-19) H 12/16/24 07:03 12/16/24 Creatinine 0.79 mg/dL (0.70-1.20) 12/16/24 07:03 12/16/24 Glucose 103 mg/dL (70-99) H 12/16/24 07:03 12/16/24 TSH 1.340 uIU/mL (0.300-4.200) 12/16/24 07:03 11/20 06/12 COAG Pre-Assessment Diagnosis/Proposed Procedure Planned Operative Procedure(s): Incision and drainage of left wrist Anesthesia History Anesthesia History - venetian blind maker: Anesthesia History - venetian blind maker Hx Hospitalization No 02/21/20 09:53 Any Problems With Anesthesia No 12/17/24 08:09 Cholinesterase deficiency No 12/17/24 08:09 You/Your Family Experience No 12/17/24 08:09 fever (hyperthermia) with Relationship Recent Exposure to Contagious No 12/17/24 08:09 Disease Does patient have nerve No 12/17/24 08:09 stimulator Patient instructed to have No 12/17/24 08:09 device shut off --Does patient have Pacemaker No 12/17/24 08:14 or ICD? When Was Last Pacemaker Check QUESTION #4 FULL TEXT: You/Your Family Experience fever (hyperthermia) with Anesthesia Last Oral Intake Last Oral intake: Last Oral Intake NPO since 06:30 12/17/24 08:14 Meds taken in AM with sips of Yes 12/17/24 08:14 water? Meds patient instructed to SIP WITH AM MEDS 12/17/24 08:14 take am of surgery PONV PONV - venetian blind maker: PONV - venetian blind maker Female HX of Motion Sickness HX of N/V After Surgery Non-Smoker Duration of Surgery greater than 60 minutes Number of Risk Factors PONV Score Height & Weight Height & Weight: Anesthesia: Height & Weight Height 5 ft 6 in 12/17/24 08:14 Weight: 70.2 kg 12/17/24 08:14 Body Mass Index (BMI) 25.0 12/17/24 08:14 Respiratory Assessment Respiratory Assessment - venetian blind maker: Respiratory Tract Infection Hx - venetian blind maker Hx Respiratory Tract Infection Yes: flu a, 12/15/24 12/17/24 08:09 STOP Sleep Apnea STOP Sleep Apnea - venetian blind maker: STOP Sleep Apnea - venetian blind maker Hx Hypertension No 12/15/24 23:46 Hx Sleep Apnea No 12/16/24 16:18 CPAP BIPAP Do you snore loudly (louder No 12/15/24 23:46 than talking or can be heard Do you often feel tired/ No 12/15/24 23:46 fatigued/ sleepy during daytime? Has anyone observed you stop No 12/15/24 23:46 breathing during sleep? STOP Results Negative 12/15/24 23:46 QUESTION #5 FULL TEXT : Do you snore loudly (louder than talking or can be heard through closed doors)? 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 Specify any problems Hx of Preganancy in last 3 N/A 12/15/24 23:46 Months Nurse Filling Out Transfusion [email or web address] 12/15/24 23:46 & Questions: Date: 12/15/24 12/15/24 23:46 Time: 23:53 12/15/24 23:46 Patient unable to answer at this time (ie. confused, unrespo /Reproduction History /Reproductive History - venetian blind maker: /Reproductive Hx- venetian blind maker Hx Now No 12/16/24 07:59 Gestational Age (in weeks): EDC: Hx Hx Para Hx Section SAB No 12/16/24 07:59 Active Medications Active Medications: Current Medications Generic Name Dose Route Start Last Admin Trade Name Freq PRN Reason Stop Dose Admin Acetaminophen 1,000 mg 12/16/24 22:00 12/17/24 06:04 Acetaminophen 500 Mg Tablet PO 1,000 mg Q8 AVRIL Administration Aspirin 81 mg 12/16/24 22:00 12/16/24 21:53 Aspirin 81 Mg Tab.Chew PO 81 mg BID AVRIL Administration Celecoxib 200 mg 12/16/24 22:00 12/16/24 21:53 Celecoxib 200 Mg Capsule PO 200 mg BID AVRIL Administration Vancomycin IV-PHARMACY TO DOSE 500 mls @ 250 mls/hr 12/15/24 23:46 1 each/ Sodium Chloride IV PRN PRN Rx to Dose Protocol Sodium Chloride 100 mls @ 15 mls/hr 12/15/24 23:56 IV .Q6H40M PRN Saline Flush Sodium Chloride 100 mls @ 15 mls/hr 12/15/24 23:56 IV .Q6H40M PRN Additional IVPB Infusion Vancomycin HCl 750 mg/ Sodium 265 mls @ 250 mls/hr 12/16/24 11:00 12/17/24 01:07 Chloride IV Infused Q12H AVRIL Infusion Piperacillin Sod/Tazobactam 50 mls @ 12.5 mls/hr 12/16/24 12:30 12/17/24 06:02 Sod 3.375 gm/ Sodium Chloride IV 12.5 mls/hr Q8 AVRIL Administration Ondansetron HCl 4 mg 12/15/24 23:46 Ondansetron 4 Mg/2 Ml Vial IV Q8H PRN PRN NAUSEA/VOMITING Oxycodone HCl 5 mg 12/16/24 16:26 Oxycodone 5 Mg Tablet PO Q4H PRN PRN Pain Score 6-10 Sodium Chloride 10 - 40 ml 12/15/24 23:56 0.9% Saline Lock 10 Ml Syringe IV UD PRN SALINE FLUSH Vancomycin Protocol 1 lab 12/17/24 08:30 Vancomycin Trough/Random Due 12/17/24 12:30 DAILY AVRIL PFSH Medical History BRCA gene positive Breast cancer metastasized to axillary lymph node Breast cancer, right breast Rheumatoid arthritis Home Medications ?Medication ?Instructions ?Recorded ?Last Taken ?Type multivitamin 1 tab PO DAILY general healt h 11/29/18 Unknown History anastrozole 1 mg tablet 1 mg PO DAILY arthritis 09/19 04/06 Unknown History ferrous sulfate 325 mg (65 mg 325 mg PO DAILY anemia 1 12/14/18 Unknown History iron) tablet leflunomide 10 mg tablet (Arava) 20 mg PO DAILY arthri tis 12/19/19 Unknown History calcium 500 mg (as 1 ea PO BID def. 02/21/20 Un known History carbonate)-vitamin D3 15 mcg (600 unit) tablet certolizumab pegol 400 mg/2 mL 200 mg subcut Q2W arthr itis 12/31/20 Unknown History (200 mg/mL x2) subcutaneous syringe kit (Cimzia) hydroxychloroquine 200 mg tablet 200 mg PO BID arthrit is 07/09/21 Unknown History hydrocortisone 2.5 % topical 1 applic topical BID PRN perineal 12/15/24 Unknown History ointment area leflunomide 20 mg tablet 20 mg PO DAILY arthritis Unknown History prednisone 10 mg tablet 20 mg PO BID swollen neck Unknown History prednisone 20 mg tablet 20 mg PO BID swollen neck Unknown History Allergy/AdvReac Type Severity Reaction Status Date / Time No Known Allergies Allergy Verified 12/15/24 19:45 Family History Son Diabetes Grandfather Heart disease Mother Cancer possible throat cancer (Went through radiation) Father Cancer lung Surgical History S/P bilateral salpingo-oophorectomy S/P breast reconstruction S/P bilateral mastectomy Status post right breast lumpectomy (~12/2018) History of tonsillectomy Social History household members: none housing: apartment current occupational status: employed Smoking Status: Never smoker alcohol intake: current alcohol intake frequency: holidays/special occasions only substance use type: does not use caffeine: Yes what type of physical activity do you participate in: walking and aerobics frequency: 5-6 times per week seatbelt use: always do you feel safe at home: Yes additional social history: Patient works at [employer] Review of Systems (Anesthesia) ROS Narrative System reviewed and no additional complaints, except as documented.
--- NOTE | 2024-12-17 10:03 | PCM.PN.HOSP ---
Subjective Subjective Doing well, the cellulitis in her left upper extremity appears to be improving Objective Data Objective Data Vital Signs: Vital Signs Temp Pulse Resp BP Pulse Ox O2 Del Method O2 Flow Rate 98 F 94 16 136/74 H 94 Room Air 2 12/17/24 09:28 12/17/24 09:28 12/17/24 09:28 12/17/24 09:28 12/17/24 09:28 12/17/24 08:14 12/17/24 09:28 Oxygen Flow Rate (L/min) 2 Oxygen Delivery Method Room Air Weight: 154 lb 12.232 oz Body Mass Index (BMI) 25.0 Intake & Output: Intake and Output for Last 24 Hours 12/16/24 12/17/24 12/18/24 03:59 03:59 03:59 Intake Total 250 / 250 1880.00 / 1880.00 Balance 250 / 250 1880.00 / 1880.00 Lab / Micro Data 12/16/24 07:03 12/16/24 07:03 Labs: Laboratory Results - last 24 hr 12/17/24 05:44: Phosphorus 2.4 L Micro: Microbiology 12/16/24 Unknown Incision/Surgical Site Gram Stain - Final 12/16/24 Unknown Incision/Surgical Site Gram Stain - Final 12/15/24 21:37 Fluid - Synovial (joint) Gram Stain - Final 12/15/24 21:37 Fluid - Synovial (joint) Body Fluid Culture - Preliminary Gram negative sunitha 12/15/24 22:21 Blood Culture (Wb) - Right Forearm Blood Culture - Preliminary 12/15/24 22:21 Blood Culture (Wb) - Anticubital Right Blood Culture - Preliminary Radiography Diagnostic Testing: Radiology Impression Shoulder X-Ray 12/16/24 14:00 IMPRESSION: Fluoroscopic services provided for left shoulder aspiration. Reading Location: [id number] Shoulder X-Ray 12/16/24 15:05 IMPRESSION: Fluoroscopic services provided for right shoulder aspiration. Reading Location: [id number] Physical Exam Narrative General: Alert, Oriented x3, Cooperative, No apparent distress HEENT: Atraumatic, PERRLA, EOMI, Normocephalic Oral: Moist Mucosa Neck: Supple, No JVD Lungs: Diminished, Normal air movement, No rhonchi, No wheeze, No rales Cardiovascular: Regular rate, Regular Rhythm, Normal S1, Normal S2, No murmurs Abdomen: Soft, Non Tender, Non-Distended, No Hepato-splenomegaly Extremities: No edema, Capillary Refill Less than 3 Seconds Skin: Left upper extremity demarcated cellulitis her left bicep improving, left wrist is dressed Musculoskeletal: No Tenderness to Palpation of Joints or Extremities Neurological: No focal neurological deficits, Motor Exam 5/5 strength throughout, Sensory exam intact to light touch and pain Psych/Mental Status: Normal Affect, Appropriate Assessment & Plan Assessment/Plan (1) Septic arthritis of wrist, left: QUALIFIERS: Septic arthritis organism: due to unspecified organism Qualified Code(s): M00.9 - Pyogenic arthritis, unspecified (2) Influenza A: PLAN: Plan 1. Septic arthritis of her left wrist with left upper extremity cellulitis and possible septic arthritis of her left shoulder ? Continue with vancomycin and will transition to Zosyn given the septic arthritis, the wrist culture is growing a gram-negative sunitha and Gram stain from the left shoulder is demonstrating 2 positive Gram variable sunitha ? Blood cultures are showing gram-negative sunitha will wait for identification and sensitivities before making antibiotic changes ? Appreciate orthopedic surgery's assistance plan for intervention today ? CRP on admission of 412 2. Influenza A ? She is maintaining her oxygen saturations on room air, been about 6 days since her symptom onset ? She was taking steroids as an outpatient, will discontinue given her current infection status 3. 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 Will hold her leflunomide and hydroxychloroquine and certolizumab until infection has been contained 4. Iron deficiency anemia ? Continue with iron replacement when able to take p.o. DVT: SCDs Charges/Coding Visit Charges Inpatient E&M: 83571 Subs Hosp L2
[2024-12-17] MEDS: Bupivacaine Mpf 0.5% 30 ML VIAL (10:45)
[2024-12-17] MEDS: Epinephrine (1 mg/ml) 1 MG/ML VIAL (10:46)
--- NOTE | 2024-12-17 11:03 | PCM.POST.ANE ---
Anesthesia: Postop Eval I Current Vital Signs Temperature: 97.8 F Pulse Rate: 100 Blood Pressure: 127/77 Respiratory Rate: 16 Pulse Ox: 93 Assessment Airway patent: Yes Spontaneous unlabored respirations: Yes nausea: No Vomiting: No Anesthesia Complication: No Fluid Hydration Crystalloid volume administer (ml): 1,500 Total IV fluid infused: 1,500 Progress Note Anesthesia document: Postop Eval 1 completed: Yes
--- NOTE | 2024-12-17 11:05 | PCM.POSTANE2 ---
Anesthesia Postop Eval I Sum Postop Eval Completion status Anesthesia document: Postop Eval 1 completed: Yes Anesthesia Postop Eval I Summary Anesthesia Postop Eval I Summary: Anesthesia Postop Eval I: Assessment Summary Airway patent Yes 12/17/24 11:04 Spontaneous unlabored Yes 12/17/24 11:04 respirations Mental status Awake,Calm 12/16/24 18:43 nausea No 12/17/24 11:04 Vomiting No 12/17/24 11:04 Anesthesia Postop Eval I: Fluid Summary Crystalloid volume administer 1,500 12/17/24 11:04 (ml) Colloids volume administered ( ml) Blood Product volume administered (ml) Total IV fluid infused 1,500 12/17/24 11:04 Anesthesia Postop Eval I: Summary Notes Anesthesia Complication No 12/17/24 11:04 Anesthesia Complication Comment: Post-operative progress note Anesthesia: Postop Eval II Evaluation Mental status: Asleep Pain Level: 0 nausea: No Vomiting: No
--- NOTE | 2024-12-17 11:12 | OP.PCM_ITS ---
Operative Report (Standard) Operative Information Date of Procedure: 12/17/24 Pre-Operative Diagnosis: 1. Left shoulder septic arthritis 2. Right shoulder pain concern for septic arthritis Post-Operative Diagnosis: 1. Left shoulder septic arthritis 2. Right shoulder pain Surgery/Procedure Performed: 1. 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: Yes Director Food And Beverage: Viridiana Conteh Tasks completed by litigation legal assistant: Opening & closing and Retracting Additional operator/assistant foreman?: No Type of Anesthesia: General RN Documented Start/Stop Times: Operation Date: 12/17/24 09:50 Case Time Anesthesia Start 12/17/24 09:40 Into Room 12/17/24 09:40 Procedure Start 12/17/24 10:30 Procedure End 12/17/24 10:52 Anesthesia End 12/17/24 11:02 Out of Room 12/17/24 11:02 Into Recovery 12/17/24 11:03 Procedure Start Time: 10:30 Procedure Stop Time: 10:52 Select all DRAINS/GRAFTS/IMPLANTS that apply: None Estimated Blood Loss: 10 cc Specimen collected: Yes Description of specimen(s) removed: Right shoulder synovial fluid aspirate Description of surgery: Patient was identified in the preoperative holding area by name, medical record number, and date of . The operative extremity was marked. Patient was then brought to the operative suite. She was positioned supine on a standard operating table. General anesthesia was induced and endotracheal tube placed. We then performed a timeout confirming the side, site, and operation to be performed. No concerns were voiced and we elected to proceed with surgery. Patient was receiving scheduled vancomycin and Zosyn neither of which she was due for in the operative suite. I then palpated the anterior shoulder and under no touch sterile technique, aspiration was performed with an 18-gauge needle the right glenohumeral joint and subsequently the subacromial space. Minimal blood was aspirated. I did send this for culture. Band-Aid was applied. Patient was then positioned in a lateral decubitus position with the left side up. Axillary roll was placed. All bony prominences were well-padded. We spun the bed 45 degrees. She was held in place with a beanbag. Left upper extremity was then prepped and draped in a normal, sterile orthopedic fashion. 10 pounds of traction was applied to left arm through an arthroscopic traction tower. Standard posterior portal was then established with 11 blade scalpel. Blunt tipped trocar was used to enter the glenohumeral joint. Colin purulent effusion was noted consistent with septic arthritis. Arthroscope was introduced. The joint was filled with normal saline with epinephrine. Diagnostic arthroscopy elevated extensive synovitis, labral fraying, capsulitis. Anterior interval portal was established. Shaver was used to debride synovitis, capsular tissue and degenerative labral fraying. Cartilage appeared pristine. Minimal fraying of the articular sided supraspinatus was noted. Biceps tendon was pristine. Approximately 5 L normal saline with epinephrine was then washed through the glenohumeral joint. At this time I withdrew the arthroscope and reentered the shoulder and subacromial space. Lateral portal was established. Bursitis was noted and debrided with arthroscopic shaver. Bursal sided rotator cuff appeared pristine. No obvious purulence was noted in the subacromial space. Approximately 1 L was lavaged through the subacromial space. Arthroscopic instruments were then removed. Portal sites were closed in interrupted [id number] fashion. Field and intra-articular block was administered with 30 cc total half percent bupivacaine plain. Bulky sterile compression dressing was applied. The wrist was redressed with a soft dressing. She was placed in a simple sling. She was awakened from anesthesia and extubated the operative suite. She was transferred to her gurney and subsequently to PACU in stable condition. Postoperative plan: Sling for comfort to the left arm including the wrist and shoulder. Okay to remove as tolerated. Ice to the left wrist and shoulder as needed. Follow cultures of the right shoulder. Continue IV antibiotics. We will start prophylactic heparin this evening for DVT prophylaxis. Continue to follow clinically regarding the right shoulder. I will provisionally make the patient n.p.o. after midnight tonight as I do have considerable concern for a right shoulder septic arthritis however multiple dry aspirates do give me pause regarding surgical I&D. Surgical Findings: Gross purulence of the left glenohumeral effusion. Synovitis consistent with septic arthritis left shoulder. Minimal blood from right shoulder aspirate. Left wrist was examined and appeared to be responding well to surgical treatment yesterday with minimal swelling and no erythema. Complications Complications: No Admit VTE Documentation VTE Present on Admission: No VTE Mechan Device Prophylaxis: SCD's VTE Pharm Prophylaxis ordered?: Yes
[2024-12-17] MEDS: Ketorolac 15 MG/ML Vial IV (11:30)
[2024-12-17] MEDS: 0.9% Saline Lock 10 ML Syringe IV (12:38)
[2024-12-17] MEDS: Vancomycin HCl 1,250 MG in 0.9% Normal Saline (250mL Bag) 250 ML 167 MG IV (21:44)
[2024-12-17] MEDS: Heparin Injection 5,000 UNITS/ML Syringe 5000 UNITS SC (21:56)
[2024-12-18 05:00] VITALS: BP 165/92; PULSE 94; RESP 15; TEMP 36.9; O2SAT 93
[2024-12-18 06:00] VITALS: BMI 26.3
[2024-12-18] MEDS: Piperacil/Tazobactam 3.375 GM in 0.9% Normal Saline (50mL MB+) 50 ML IV (06:12)
[2024-12-18] MEDS: Acetaminophen 500 MG Tablet 1000 MG PO ×3 (06:12→21:16)
[2024-12-18 07:28] LABS: Absolute Lymphocyte Count 2.27 X10^3/uL (0.83-4.51); Absolute Neutrophil Count 20.4 X10^3/uL (2.0-7.7); Basophil# 0.16 X10^3/uL; Basophil% 0.7 % (0-1); Eosinophil# 0.14 X10^3/uL; Eosinophils% 0.6 % (0-5); Hematocrit 33.4 % (37-47); Hemoglobin 11.2 g/dL (12.0-15.0); Lymphocyte # 2.27 X10^3/ul (0.83-4.51); Lymphocyte % 9.3 % (19-41); Mean Corp Hgb Conc 33.5 g/dL (32-36); Mean Corpuscular Hgb 31.6 pg (27.0-32.0); Mean Corpuscular Volume 94.4 fL (81-99); Mean Platelet Vol. 10.1 fl (6.2-12.0); Monocyte# 1.09 X10^3/uL; Monocyte% 4.5 % (0-10); NRBC Flagged by Analyzer 0 % (0-5); Neutrophil # 20.36 X10^3/uL (2.7-7.7); Neutrophil % 83.8 % (47-70); POSITIVE DIFFERENTIAL YES; Platelet Count 196 K/mm3 (150-450); RBC Distribution Width CV 13.2 % (11.6-14.6); RBC Distribution Width SD 45.7 fl (35.1-43.9); Red Blood Count 3.54 M/mm3 (4.2-5.4); White Blood Count 24.3 K/mm3 (4.4-11.0)
[2024-12-18 07:32] LABS: Differential Indicated SCAN CRITERIA MET
[2024-12-18 07:53] LABS: Anion Gap 12 (5-15); BUN 20 mg/dL (4-19); BUN/Creat Ratio 36.6 RATIO (10-20); Calcium 8.5 mg/dL (7.6-11.0); Carbon Dioxide 19.9 mmol/L (22.0-29.0); Chloride 107 mmol/L (96-108); Creatinine, Serum 0.55 mg/dL (0.70-1.20); EST Glomerular Filtration Rate 108 (>60); Estimated Creatinine Clearance 117.74 ml/min (50-250); Glucose 82 mg/dL (70-99); Potassium 3.3 mmol/L (3.3-5.1); Sodium Level 139 mmol/L (133-145)
[2024-12-18] MEDS: Vancomycin HCl 1,250 MG in 0.9% Normal Saline (250mL Bag) 250 ML 167 MG IV (10:33)
[2024-12-18] MEDS: Heparin Injection 5,000 UNITS/ML Syringe 5000 UNITS SC ×2 (10:35→21:17)
--- NOTE | 2024-12-18 10:35 | PCM.PN.HOSP ---
Subjective Subjective Doing well, a little bit of postoperative pain from her shoulder washout yesterday Objective Data Objective Data Vital Signs: Vital Signs Temp Pulse Resp BP Pulse Ox O2 Del Method O2 Flow Rate 98.4 F 94 15 165/92 H 93 Room Air 2 12/18/24 05:00 12/18/24 05:00 12/18/24 05:00 12/18/24 05:00 12/18/24 05:00 12/18/24 05:00 12/17/24 09:28 Oxygen Flow Rate (L/min) 2 Oxygen Delivery Method Room Air Weight: 163 lb 12.855 oz Body Mass Index (BMI) 26.3 Intake & Output: Intake and Output for Last 24 Hours 12/17/24 12/18/24 12/19/24 03:59 03:59 03:59 Intake Total 1880.00 / 1880.00 2240 / 2240 Balance 1880.00 / 1880.00 2240 / 2240 Lab / Micro Data 12/18/24 07:05 12/18/24 07:05 Labs: Laboratory Results - last 24 hr 12/17/24 11:20: Vancomycin Trough 6.0 12/18/24 07:05: WBC 24.3 H, RBC 3.54 L, Hgb 11.2 L, Hct 33.4 L, MCV 94.4, MCH 31.6, MCHC 33.5, RDW Std Deviation 45.7 H, RDW Coeff of Myla 13.2, Plt Count 196, MPV 10.1, Immature Gran % (Auto) 1.100 H, Neut % (Auto) 83.8 H, Lymph % (Auto) 9.3 L, [place] % (Auto) 4.5, Eos % (Auto) 0.6, Baso % (Auto) 0.7, Absolute Neuts (auto) 20.4 H, Absolute Lymphs (auto) 2.27, Nucleated RBC % 0, Sodium 139, Potassium 3.3, Chloride Direct 107, Carbon Dioxide 19.9 L, Anion Gap 12, BUN 20 H, Creatinine 0.55 L, Estim Creat Clear Calc 117.74, Est GFR (MDRD) Non-Af 108, BUN/Creatinine Ratio 36.6 H, Glucose 82, Calcium 8.5 Micro: Microbiology 12/16/24 Unknown Incision/Surgical Site Gram Stain - Final 12/16/24 Unknown Incision/Surgical Site Wound Culture - Preliminary Gram negative sunitha 12/16/24 Unknown Incision/Surgical Site Anaerobic Culture - Preliminary No growth in 48 hours. 12/16/24 Unknown Incision/Surgical Site Gram Stain - Final 12/16/24 Unknown Incision/Surgical Site Wound Culture - Preliminary Gram negative sunitha 12/16/24 Unknown Incision/Surgical Site Anaerobic Culture - Preliminary No growth in 48 hours. 12/17/24 11:00 Aspirate - Shoulder Gram Stain - Final 12/17/24 11:00 Aspirate - Shoulder Wound Culture - Preliminary 12/15/24 21:37 Fluid - Synovial (joint) Gram Stain - Final 12/15/24 21:37 Fluid - Synovial (joint) Body Fluid Culture - Final Haemophilus influenzae 12/15/24 21:37 Fluid - Synovial (joint) Anaerobic Culture - Preliminary No growth in 48 hours. 12/15/24 22:21 Blood Culture (Wb) - Anticubital Right Blood Culture - Final Haemophilus influenzae 12/15/24 22:21 Blood Culture (Wb) - Right Forearm Blood Culture - Final Haemophilus influenzae Physical Exam Narrative General: Alert, Oriented x3, Cooperative, No apparent distress HEENT: Atraumatic, PERRLA, EOMI, Normocephalic Oral: Moist Mucosa Neck: Supple, No JVD Lungs: Diminished, Normal air movement, No rhonchi, No wheeze, No rales Cardiovascular: Regular rate, Regular Rhythm, Normal S1, Normal S2, No murmurs Abdomen: Soft, Non Tender, Non-Distended, No Hepato-splenomegaly Extremities: No edema, Capillary Refill Less than 3 Seconds Skin: Left arm in a sling, dressings intact Musculoskeletal: No Tenderness to Palpation of Joints or Extremities Neurological: No focal neurological deficits, Motor Exam 5/5 strength throughout, Sensory exam intact to light touch and pain Psych/Mental Status: Normal Affect, Appropriate Assessment & Plan Assessment/Plan (1) Septic arthritis of wrist, left: QUALIFIERS: Septic arthritis organism: due to unspecified organism Qualified Code(s): M00.9 - Pyogenic arthritis, unspecified (2) Influenza A: PLAN: Plan 1. Septic arthritis of her left wrist with left upper extremity cellulitis and possible septic arthritis of her left shoulder ? Wound culture with haemophilus influenza, will back down to Unasyn and consult ID in the morning ? Blood cultures blood cultures also with haemophilus influenza and shoulder washout with gram-negative sunitha as well ? Appreciate orthopedic surgery's assistance ? CRP on admission of 412 2. Influenza A ? She is maintaining her oxygen saturations on room air, been about 6 days since her symptom onset ? She was taking steroids as an outpatient, will discontinue given her current infection status 3. 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 Will hold her leflunomide and hydroxychloroquine and certolizumab until infection has been contained 4. Iron deficiency anemia ? Continue with iron replacement when able to take p.o. DVT: SCDs Charges/Coding Visit Charges Inpatient E&M: 92166 Subs Hosp L2
[2024-12-18 10:41] VITALS: BP 172/83; PULSE 102; RESP 18; TEMP 36.6; O2SAT 95
[2024-12-18] MEDS: oxyCODONE 5 MG Tablet PO ×3 (10:46→21:33)
[2024-12-18 12:09] VITALS: BP 167/89; PULSE 100; O2SAT 95
[2024-12-18] MEDS: Ampicillin/Sulbactam 3 GM in 0.9% Normal Saline (100mL MB+) 100 ML IV ×2 (14:36→23:16)
[2024-12-18 15:19] VITALS: BP 163/92; PULSE 103; RESP 18; TEMP 36.7; O2SAT 98
--- NOTE | 2024-12-18 15:48 | PCM.PN.ORT ---
Subjective Subjective Pt S&E. Pain controlled. Left shoulder feels better and left wrist is stiff but painless at rest. Right shoulder is not feeling any better. Denies F/C/N/V/SOB/CP Objective Data Objective Data Vital Signs: Vital Signs Temp Pulse Resp BP Pulse Ox O2 Del Method O2 Flow Rate 98.1 F 103 H 18 163/92 H 98 Room Air 2 12/18/24 15:19 12/18/24 15:19 12/18/24 15:19 12/18/24 15:19 12/18/24 15:19 12/18/24 15:22 12/17/24 09:28 Oxygen Flow Rate (L/min) 2 Oxygen Delivery Method Room Air Weight: 163 lb 12.855 oz Body Mass Index (BMI) 26.3 Intake & Output: Intake and Output for Last 24 Hours 12/16/24 12/17/24 12/18/24 23:59 23:59 23:59 Intake Total 1765 / 1765 2505.00 / 2505.00 427.93 / 427.93 Balance 1765 / 1765 2505.00 / 2505.00 427.93 / 427.93 Lab / Micro Data 12/18/24 07:05 12/18/24 07:05 Labs: Laboratory Results - last 24 hr 12/18/24 07:05: WBC 24.3 H, RBC 3.54 L, Hgb 11.2 L, Hct 33.4 L, MCV 94.4, MCH 31.6, MCHC 33.5, RDW Std Deviation 45.7 H, RDW Coeff of Myla 13.2, Plt Count 196, MPV 10.1, Immature Gran % (Auto) 1.100 H, Neut % (Auto) 83.8 H, Lymph % (Auto) 9.3 L, [place] % (Auto) 4.5, Eos % (Auto) 0.6, Baso % (Auto) 0.7, Absolute Neuts (auto) 20.4 H, Absolute Lymphs (auto) 2.27, Nucleated RBC % 0, Sodium 139, Potassium 3.3, Chloride Direct 107, Carbon Dioxide 19.9 L, Anion Gap 12, BUN 20 H, Creatinine 0.55 L, Estim Creat Clear Calc 117.74, Est GFR (MDRD) Non-Af 108, BUN/Creatinine Ratio 36.6 H, Glucose 82, Calcium 8.5 Micro: Microbiology 12/16/24 Unknown Incision/Surgical Site Gram Stain - Final 12/16/24 Unknown Incision/Surgical Site Wound Culture - Final Haemophilus influenzae 12/16/24 Unknown Incision/Surgical Site Anaerobic Culture - Preliminary No growth in 48 hours. 12/16/24 Unknown Incision/Surgical Site Gram Stain - Final 12/16/24 Unknown Incision/Surgical Site Wound Culture - Final Haemophilus influenzae 12/16/24 Unknown Incision/Surgical Site Anaerobic Culture - Preliminary No growth in 48 hours. 12/17/24 11:00 Aspirate - Shoulder Gram Stain - Final 12/17/24 11:00 Aspirate - Shoulder Wound Culture - Preliminary Bacillus sp., not anthracis 12/15/24 21:37 Fluid - Synovial (joint) Gram Stain - Final 12/15/24 21:37 Fluid - Synovial (joint) Body Fluid Culture - Final Haemophilus influenzae 12/15/24 21:37 Fluid - Synovial (joint) Anaerobic Culture - Preliminary No growth in 48 hours. 12/15/24 22:21 Blood Culture (Wb) - Anticubital Right Blood Culture - Final Haemophilus influenzae 12/15/24 22:21 Blood Culture (Wb) - Right Forearm Blood Culture - Final Haemophilus influenzae Physical Exam Narrative General -A&Ox3, NAD, appears stated age. Vital signs stable, afebrile. Respiratory -normal work of breathing, no intercostal retractions. CV -pulses regular, brisk capillary refill ?4 limbs. Abdomen-soft, nontender, nondistended. No guarding, rigidity, rebound tenderness. Musculoskeletal/neurologic -full range of motion nontender throughout bilateral lower extremities with full sensation and strength in all dermatomes and myotomes. No midline cervical tenderness. Left upper extremity: Left wrist and shoulder dressing C/D/I. Cardinal motions left hand are intact. Brisk cap refill in fingertips. She tolerates passive internal and external rotation well without obvious pain. Active and passive forward flexion elicits minimal pain left shoulder. Cellulitic rash appears improved, surgical prep staining limits visualization. Sensation and motor intact. Right upper extremity: Minimally tender over the right shoulder. Mild induration anterior shoulder. Tolerates internal and external rotation passively well without obvious pain. Moderate pain with forward flexion actively and passively. No rashes or lesions. Sensation motor intact throughout. Radial pulse 2+ with brisk capillary fill in the fingertips. Calves soft and nontender. Assessment & Plan Assessment/Plan (1) Septic arthritis of wrist, left: QUALIFIERS: Septic arthritis organism: due to unspecified organism Qualified Code(s): M00.9 - Pyogenic arthritis, unspecified PLAN: POD# 2 s/p left wrist I&D -Ok for active and passive range of motion. We will immobilize the left upper extremity with a sling as needed. Ice and elevation. Continue IV antibiotics. Defer definitive abx recs to primary/ID (2) Septic arthritis of shoulder, left: QUALIFIERS: Septic arthritis organism: due to unspecified organism Qualified Code(s): M00.9 - Pyogenic arthritis, unspecified PLAN: POD#1 s/p L shoulder arthroscopic I&D - pain better. Continue abx. sling for comfort, may remove ad aimee. ROM as tolerated. Ice. (3) Acute pain of right shoulder: PLAN: Different organism evident on GS. Unusual for multiple joints from different organisms. Will order CT w contrast this evening. With positive aspirate results, I&D is indicated. Plan for arthroscopic I&D tomorrow. Will hold AM heparin. Informed consent obtained for surgery.
--- NOTE | 2024-12-18 16:27 | CT_ITS ---
PROCEDURE: EXTREMITY UPPER WITH CONTRAST REASON FOR EXAM: Infection, rule out periarticular abscess TECHNIQUE: Right upper extremity CT with contrast. COMPARISON: None. FINDINGS: Bones: No evidence of fracture. No osseous erosions. Hyperdense humeral head mass measuring 6.9 x 5.2 mm Joints: Hypodense fluid collection about the right glenohumeral joint and along the anterior scapula scapula component measures approximately 2.5 x 6.8 cm. Anterior humeral head hypodensity measures 3.9 x 1.4 cm. There is also an axillary component measuring 2 point 4 x 4.5 cm. Soft Tissues: Unremarkable. Visualized thoracic cavity: Moderate right pleural effusion with compressive airspace disease. CT/Extremity Upper WITH Contrast IMPRESSION: 1. Findings suggesting of right glenohumeral intra-articular abscess and surro unding soft tissues including the axilla and anterior scapula. Concern for septic joint. No osseous erosions 2. Moderate right pleural effusion with compressive consolidation. 3. Humeral head bone infarct versus bone island One or more dose reduction techniques were used (e.g., Automated exposure contr ol, adjustment of the mA and/or kV according to patient size, use of iterative reconstruction technique). Reading Location: [facility]
[2024-12-18 18:29] VITALS: BP 159/87; PULSE 102; RESP 16; TEMP 36.5; O2SAT 95
[2024-12-18 21:12] VITALS: PULSE 105; RESP 16; TEMP 36.7; O2SAT 97
[2024-12-18] MEDS: 0.9% Saline Lock 10 ML Syringe IV (21:34)
[2024-12-19] VITALS (17 sets, daily range): BP systolic 136–195; BP diastolic 69–89; PULSE 93–108; RESP 14–20; TEMP 36.5–37.3; O2SAT 2–99; BMI 26.4
[2024-12-19] MEDS: Ampicillin/Sulbactam 3 GM in 0.9% Normal Saline (100mL MB+) 100 ML IV ×3 (06:31→22:08)
[2024-12-19] MEDS: Acetaminophen 500 MG Tablet 1000 MG PO ×3 (06:32→22:08)
[2024-12-19 06:50] LABS: Absolute Lymphocyte Count 2.48 X10^3/uL (0.83-4.51); Absolute Neutrophil Count 12.8 X10^3/uL (2.0-7.7); Basophil# 0.11 X10^3/uL; Basophil% 0.6 % (0-1); Eosinophil# 0.12 X10^3/uL; Eosinophils% 0.7 % (0-5); Hematocrit 31.8 % (37-47); Hemoglobin 10.6 g/dL (12.0-15.0); Lymphocyte # 2.48 X10^3/ul (0.83-4.51); Lymphocyte % 14.3 % (19-41); Mean Corp Hgb Conc 33.3 g/dL (32-36); Mean Corpuscular Hgb 30.8 pg (27.0-32.0); Mean Corpuscular Volume 92.4 fL (81-99); Mean Platelet Vol. 9.9 fl (6.2-12.0); Monocyte# 1.27 X10^3/uL; Monocyte% 7.3 % (0-10); NRBC Flagged by Analyzer 0.1 % (0-5); Neutrophil # 12.81 X10^3/uL (2.7-7.7); Neutrophil % 73.9 % (47-70); Platelet Count 215 K/mm3 (150-450); RBC Distribution Width CV 13.3 % (11.6-14.6); Red Blood Count 3.44 M/mm3 (4.2-5.4); White Blood Count 17.4 K/mm3 (4.4-11.0)
[2024-12-19 07:15] LABS: Anion Gap 12 (5-15); BUN 12 mg/dL (4-19); BUN/Creat Ratio 25.6 RATIO (10-20); Calcium 8.1 mg/dL (7.6-11.0); Carbon Dioxide 22.7 mmol/L (22.0-29.0); Chloride 102 mmol/L (96-108); Creatinine, Serum 0.47 mg/dL (0.70-1.20); EST Glomerular Filtration Rate 112 (>60); Estimated Creatinine Clearance 137.78 ml/min (50-250); Glucose 97 mg/dL (70-99); Potassium 3.1 mmol/L (3.3-5.1); Sodium Level 137 mmol/L (133-145)
--- NOTE | 2024-12-19 07:34 | PN.ORTHO_ITS ---
Subjective Subjective Patient seen and examined. Denies any new complaints. Continues with right shoulder pain. She states her left shoulder and left wrist are stiff but overall pain is much improved prior to I&D's. She denies any fevers or chills. She states her throat feels dry but denies any productive cough. Denies chest pain or shortness of breath. Objective Data Objective Data Vital Signs: Vital Signs Temp Pulse Resp BP Pulse Ox O2 Del Method O2 Flow Rate 99.1 F 105 H 15 171/89 H 93 Room Air 2 12/19/24 03:00 12/19/24 03:00 12/19/24 03:00 12/19/24 03:00 12/19/24 03:00 12/19/24 03:00 12/17/24 09:28 Oxygen Flow Rate (L/min) 2 Oxygen Delivery Method Room Air Weight: 163 lb 12.855 oz Body Mass Index (BMI) 26.3 Intake & Output: Intake and Output for Last 24 Hours 12/17/24 12/18/24 12/19/24 23:59 23:59 23:59 Intake Total 2505.00 / 2505.00 1039.93 / 1239.93 312 / 312 Balance 2505.00 / 2505.00 1039.93 / 1239.93 312 / 312 Lab / Micro Data Attestation: I reviewed the patient's lab results. 12/19/24 06:34 12/19/24 06:34 Labs: Laboratory Results - last 24 hr 12/18/24 07:05: Sodium 139, Potassium 3.3, Chloride Direct 107, Carbon Dioxide 19.9 L, Anion Gap 12, BUN 20 H, Creatinine 0.55 L, Estim Creat Clear Calc 117.74, Est GFR (MDRD) Non-Af 108, BUN/Creatinine Ratio 36.6 H, Glucose 82, Calcium 8.5 12/19/24 06:34: WBC 17.4 H, RBC 3.44 L, Hgb 10.6 L, Hct 31.8 L, MCV 92.4, MCH 30.8, MCHC 33.3, RDW Std Deviation 45.0 H, RDW Coeff of Myla 13.3, Plt Count 215, MPV 9.9, Immature Gran % (Auto) 3.200 H, Neut % (Auto) 73.9 H, Lymph % (Auto) 14.3 L, [place] % (Auto) 7.3, Eos % (Auto) 0.7, Baso % (Auto) 0.6, Absolute Neuts (auto) 12.8 H, Absolute Lymphs (auto) 2.48, Nucleated RBC % 0.1, Sodium 137, P otassium 3.1 L, Chloride Direct 102, Carbon Dioxide 22.7, Anion Gap 12, BUN 12, Creatinine 0.47 L, Estim Creat Clear Calc 137.78, Est GFR (MDRD) Non-Af 112, B UN/Creatinine Ratio 25.6 H, Glucose 97, Calcium 8.1 Micro: Microbiology 12/16/24 Unknown Incision/Surgical Site Gram Stain - Final 12/16/24 Unknown Incision/Surgical Site Wound Culture - Final Haemophilus influenzae 12/16/24 Unknown Incision/Surgical Site Anaerobic Culture - Preliminary No growth in 48 hours. 12/16/24 Unknown Incision/Surgical Site Gram Stain - Final 12/16/24 Unknown Incision/Surgical Site Wound Culture - Final Haemophilus influenzae 12/16/24 Unknown Incision/Surgical Site Anaerobic Culture - Preliminary No growth in 48 hours. 12/17/24 11:00 Aspirate - Shoulder Gram Stain - Final 12/17/24 11:00 Aspirate - Shoulder Wound Culture - Preliminary Bacillus sp., not anthracis 12/15/24 21:37 Fluid - Synovial (joint) Gram Stain - Final 12/15/24 21:37 Fluid - Synovial (joint) Body Fluid Culture - Final Haemophilus influenzae 12/15/24 21:37 Fluid - Synovial (joint) Anaerobic Culture - Preliminary No growth in 48 hours. 12/15/24 22:21 Blood Culture (Wb) - Anticubital Right Blood Culture - Final Haemophilus influenzae 12/15/24 22:21 Blood Culture (Wb) - Right Forearm Blood Culture - Final Haemophilus influenzae Radiography Diagnostic Testing: Radiology Impression Upper Extremity CT 12/18/24 16:27 IMPRESSION: 1. Findings suggesting of right glenohumeral intra-articular abscess and surrounding soft tissues including the axilla and anterior scapula. Concern for septic joint. No osseous erosions 2. Moderate right pleural effusion with compressive consolidation. 3. Humeral head bone infarct versus bone island One or more dose reduction techniques were used (e.g., Automated exposure control, adjustment of the mA and/or kV according to patient size, use of iterative reconstruction technique). Reading Location: [facility] Physical Exam Narrative General -A&Ox3, NAD, appears stated age. Vital signs stable, afebrile. Respiratory -normal work of breathing, no intercostal retractions. CV -pulses regular, brisk capillary refill ?4 limbs. Abdomen-soft, nontender, nondistended. No guarding, rigidity, rebound tenderness. Musculoskeletal/neurologic -full range of motion nontender throughout bilateral lower extremities with full sensation and strength in all dermatomes and myotomes. No midline cervical tenderness. Left upper extremity: Left wrist and shoulder dressing C/D/I. Shoulder dressing removed. Incisions are well-approximated. Minimal swelling about the left shoulder. Cardinal motions left hand are intact. Brisk cap refill in fingertips. She tolerates passive internal and external rotation well without obvious pain. Active and passive forward flexion elicits minimal pain left shoulder. Cellulitic rash appears nearly completely resolved. Sensation and motor intact. Right upper extremity: Minimally tender over the right shoulder. Mild induration anterior shoulder, slightly softer than yesterday. Trace fluctuance noted lateral to the bicipital groove. Tolerates internal and external rotation passively well without obvious pain. Moderate pain with forward flexion actively and passively. No rashes or lesions. Sensation motor intact throughout. Radial pulse 2+ with brisk capillary fill in the fingertips. Calves soft and nontender. Assessment & Plan Assessment/Plan (1) Septic arthritis of shoulder, right: QUALIFIERS: Septic arthritis organism: due to unspecified organism Qualified Code(s): M00.9 - Pyogenic arthritis, unspecified PLAN: Patient seen and examined. CT scan reviewed right shoulder. Fluid collection and plan for effusion noted and concerning for septic arthritis. Cultures positive from 12/17/2024. Plan for arthroscopic right shoulder I&D today. Risks, benefits, alternatives to the procedure reviewed with patient at length and she agreed to proceed. All questions were answered to the patient satisfaction. Plan to proceed with surgery later on this afternoon when operating room becomes available. (2) Septic arthritis of wrist, left: QUALIFIERS: Septic arthritis organism: due to unspecified organism Qualified Code(s): M00.9 - Pyogenic arthritis, unspecified PLAN: POD# 3 s/p left wrist I&D -Ok for active and passive range of motion. OT to be ordered today for range of motion and edema control. We will immobilize the left upper extremity with a sling as needed. Ice and elevation. Continue IV antibiotics. Defer definitive abx recs to primary/ID (3) Septic arthritis of shoulder, left: QUALIFIERS: Septic arthritis organism: due to unspecified organism Qualified Code(s): M00.9 - Pyogenic arthritis, unspecified PLAN: POD#2 s/p L shoulder arthroscopic I&D - pain better. Continue abx. sling for comfort, may remove ad aimee. ROM as tolerated. Ice.
--- NOTE | 2024-12-19 08:08 | CPS ---
Attempted to do SMI and Pep with pt however, pt was with at this time. Smi and Pep held
--- NOTE | 2024-12-19 09:37 | PN.HOSP_ITS ---
Subjective Subjective Doing well, no issues overnight. Will need washout of her right shoulder which is growing a bacillus species Objective Data Objective Data Vital Signs: Vital Signs Temp Pulse Resp BP Pulse Ox O2 Del Method O2 Flow Rate 98.7 F 93 14 179/84 H 93 Room Air 2 12/19/24 08:00 12/19/24 08:00 12/19/24 08:00 12/19/24 08:00 12/19/24 08:00 12/19/24 08:00 12/17/24 09:28 Oxygen Flow Rate (L/min) 2 Oxygen Delivery Method Room Air Weight: 163 lb 12.855 oz Body Mass Index (BMI) 26.3 Intake & Output: Intake and Output for Last 24 Hours 12/18/24 12/19/24 12/20/24 03:59 03:59 03:59 Intake Total 2240 / 2240 1301.93 / 1301.93 112 / 112 Balance 2240 / 2240 1301.93 / 1301.93 112 / 112 Lab / Micro Data 12/19/24 06:34 12/19/24 06:34 Labs: Laboratory Results - last 24 hr 12/19/24 06:34: WBC 17.4 H, RBC 3.44 L, Hgb 10.6 L, Hct 31.8 L, MCV 92.4, MCH 30.8, MCHC 33.3, RDW Std Deviation 45.0 H, RDW Coeff of Myla 13.3, Plt Count 215, MPV 9.9, Immature Gran % (Auto) 3.200 H, Neut % (Auto) 73.9 H, Lymph % (Auto) 14.3 L, [place] % (Auto) 7.3, Eos % (Auto) 0.7, Baso % (Auto) 0.6, Absolute Neuts (auto) 12.8 H, Absolute Lymphs (auto) 2.48, Nucleated RBC % 0.1, Sodium 137, P otassium 3.1 L, Chloride Direct 102, Carbon Dioxide 22.7, Anion Gap 12, BUN 12, Creatinine 0.47 L, Estim Creat Clear Calc 137.78, Est GFR (MDRD) Non-Af 112, B UN/Creatinine Ratio 25.6 H, Glucose 97, Calcium 8.1 Micro: Microbiology 12/16/24 Unknown Incision/Surgical Site Gram Stain - Final 12/16/24 Unknown Incision/Surgical Site Wound Culture - Final Haemophilus influenzae 12/16/24 Unknown Incision/Surgical Site Anaerobic Culture - Preliminary No growth in 48 hours. 12/16/24 Unknown Incision/Surgical Site Gram Stain - Final 12/16/24 Unknown Incision/Surgical Site Wound Culture - Final Haemophilus influenzae 12/16/24 Unknown Incision/Surgical Site Anaerobic Culture - Preliminary No growth in 48 hours. 12/17/24 11:00 Aspirate - Shoulder Gram Stain - Final 12/17/24 11:00 Aspirate - Shoulder Wound Culture - Preliminary Bacillus sp., not anthracis 12/15/24 21:37 Fluid - Synovial (joint) Gram Stain - Final 12/15/24 21:37 Fluid - Synovial (joint) Body Fluid Culture - Final Haemophilus influenzae 12/15/24 21:37 Fluid - Synovial (joint) Anaerobic Culture - Preliminary No growth in 48 hours. 12/15/24 22:21 Blood Culture (Wb) - Anticubital Right Blood Culture - Final Haemophilus influenzae 12/15/24 22:21 Blood Culture (Wb) - Right Forearm Blood Culture - Final Haemophilus influenzae Radiography Diagnostic Testing: Radiology Impression Upper Extremity CT 12/18/24 16:27 IMPRESSION: 1. Findings suggesting of right glenohumeral intra-articular abscess and surrounding soft tissues including the axilla and anterior scapula. Concern for septic joint. No osseous erosions 2. Moderate right pleural effusion with compressive consolidation. 3. Humeral head bone infarct versus bone island One or more dose reduction techniques were used (e.g., Automated exposure control, adjustment of the mA and/or kV according to patient size, use of iterative reconstruction technique). Reading [facility] Physical Exam Narrative General: Alert, Oriented x3, Cooperative, No apparent distress HEENT: Atraumatic, PERRLA, EOMI, Normocephalic Oral: Moist Mucosa Neck: Supple, No JVD Lungs: Diminished, Normal air movement, No rhonchi, No wheeze, No rales Cardiovascular: Regular rate, Regular Rhythm, Normal S1, Normal S2, No murmurs Abdomen: Soft, Non Tender, Non-Distended, No Hepato-splenomegaly Extremities: No edema, Capillary Refill Less than 3 Seconds Skin: Left arm in a sling, dressings intact Musculoskeletal: No Tenderness to Palpation of Joints or Extremities Neurological: No focal neurological deficits, Motor Exam 5/5 strength throughout, Sensory exam intact to light touch and pain Psych/Mental Status: Normal Affect, Appropriate Assessment & Plan Assessment/Plan (1) Septic arthritis of wrist, left: QUALIFIERS: Septic arthritis organism: due to unspecified organism Qualified Code(s): M00.9 - Pyogenic arthritis, unspecified (2) Influenza A: PLAN: Plan 1. Septic arthritis of her left wrist with left upper extremity cellulitis and possible septic arthritis of her left shoulder ? Wound culture with haemophilus influenza, continue with Unasyn and consult ID today ? Blood cultures also with haemophilus influenza, her left shoulder is also growing haemophilus influenza however her right shoulder is growing bacillus species ? Appreciate orthopedic surgery's assistance ? CRP on admission of 412 2. Influenza A ? She is maintaining her oxygen saturations on room air, symptoms started 6 days prior to admission ? She was taking steroids as an outpatient, will discontinue given her current infection status 3. 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 Will hold her leflunomide and hydroxychloroquine and certolizumab until infection has been contained 4. Iron deficiency anemia ? Continue with iron replacement when able to take p.o. DVT: SCDs Charges/Coding Visit Charges Inpatient E&M: 95995 Subs Hosp L2
--- NOTE | 2024-12-19 10:43 | ANES.CONFIRM ---
Anesthesia: Confirm Documents Multiple Procedures on Account (2) Confirmed Documents: Yes
--- NOTE | 2024-12-19 11:20 | CPS ---
SMI and Pep held,pt sleeping
[2024-12-19] MEDS: oxyCODONE 5 MG Tablet PO ×3 (13:33→22:17)
--- NOTE | 2024-12-19 13:48 | CON.PCM.ID_ITS ---
Assessment & Plan Assessment/Plan (1) Septic arthritis of shoulder, left: QUALIFIERS: Septic arthritis organism: due to unspecified organism Qualified Code(s): M00.9 - Pyogenic arthritis, unspecified (2) Septic arthritis of wrist, left: QUALIFIERS: Septic arthritis organism: due to unspecified organism Qualified Code(s): M00.9 - Pyogenic arthritis, unspecified (3) Septic arthritis of shoulder, right: QUALIFIERS: Septic arthritis organism: due to unspecified organism Qualified Code(s): M00.9 - Pyogenic arthritis, unspecified (4) Rheumatoid arthritis: QUALIFIERS: Rheumatoid arthritis location: wrist Rheumatoid factor presence: unspecified presence Laterality: left Qualified Code(s): M 06.9 - Rheumatoid arthritis, unspecified (5) Bacteremia due to Gram-negative bacteria: PLAN: H. flu bacteremia with septic arthritis of bilat shoulders and L wrist. Cxs with H. flu, except one with bacillus. OR again planned, cont unasyn. Will follow, thank you HPI Consult Data Date of Consult: 12/19/24 HPI Narrative Reason for Consultation: septic arthritis HPI Narrative: THUY PATTERSON, is a 54 F with h/o rheumatoid arthritis, breast cancer, presented 12/15 with 4-5 days fever, chills, fatigue, dry cough. Dx with flu. Had progressive L shoulder and L wrist pain. She is R handed. Came to ED, aspiration done, now on unasyn, planned for OR today. Feeling a little better, fever resolved. Full ROS performed and neg except as noted above. [facility] Medical History BRCA gene positive Breast cancer metastasized to axillary lymph node Breast cancer, right breast Rheumatoid arthritis Home Medications ?Medication ?Instructions ?Recorded ?Last Taken ?Type multivitamin 1 tab PO DAILY general healt h 11/29/18 Unknown History anastrozole 1 mg tablet 1 mg PO DAILY arthritis 09/19 04/06 Unknown History ferrous sulfate 325 mg (65 mg 325 mg PO DAILY anemia 1 12/14/18 Unknown History iron) tablet leflunomide 10 mg tablet (Arava) 20 mg PO DAILY arthri tis 12/19/19 Unknown History calcium 500 mg (as 1 ea PO BID def. 02/21/20 Un known History carbonate)-vitamin D3 15 mcg (600 unit) tablet certolizumab pegol 400 mg/2 mL 200 mg subcut Q2W arthr itis 12/31/20 Unknown History (200 mg/mL x2) subcutaneous syringe kit (Cimzia) hydroxychloroquine 200 mg tablet 200 mg PO BID arthrit is 07/09/21 Unknown History hydrocortisone 2.5 % topical 1 applic topical BID PRN perineal 12/15/24 Unknown History ointment area leflunomide 20 mg tablet 20 mg PO DAILY arthritis Unknown History prednisone 10 mg tablet 20 mg PO BID swollen neck Unknown History prednisone 20 mg tablet 20 mg PO BID swollen neck Unknown History Allergy/AdvReac Type Severity Reaction Status Date / Time No Known Allergies Allergy Verified 12/15/24 19:45 Family History Son Diabetes Grandfather Heart disease Mother Cancer possible throat cancer (Went through radiation) Father Cancer lung Surgical History S/P bilateral salpingo-oophorectomy S/P breast reconstruction S/P bilateral mastectomy Status post right breast lumpectomy (~12/2018) History of tonsillectomy Social History household members: none housing: apartment current occupational status: employed Smoking Status: Never smoker alcohol intake: current alcohol intake frequency: holidays/special occasions only substance use type: does not use caffeine: Yes what type of physical activity do you participate in: walking and aerobics frequency: 5-6 times per week seatbelt use: always do you feel safe at home: Yes additional social history: Patient works at [employer], home Physical Exam Const alert, oriented x3 and no apparent distress General Appearance: cooperative HEENT normocephalic and head/scalp atraumatic Eyes PERRL and EOMs intact bilaterally Neck supple and No nodes Resp normal air movement and clear to auscultation bilaterally Cardio regular rate and regular rhythm GI soft to palpation, non-tender and non-distended Extremity General Extremity: edema Skin Skin Narrative: Bilat shoulder and L wrist swelling, soreness Neuro CN's II-XII intact bilaterally Lab / Micro Data Attestation: I reviewed the patient's lab results. 12/19/24 06:34 12/19/24 06:34 Labs: Laboratory Results - last 24 hr 12/19/24 06:34: WBC 17.4 H, RBC 3.44 L, Hgb 10.6 L, Hct 31.8 L, MCV 92.4, MCH 30.8, MCHC 33.3, RDW Std Deviation 45.0 H, RDW Coeff of Myla 13.3, Plt Count 215, MPV 9.9, Immature Gran % (Auto) 3.200 H, Neut % (Auto) 73.9 H, Lymph % (Auto) 14.3 L, [place] % (Auto) 7.3, Eos % (Auto) 0.7, Baso % (Auto) 0.6, Absolute Neuts (auto) 12.8 H, Absolute Lymphs (auto) 2.48, Nucleated RBC % 0.1, Sodium 137, P otassium 3.1 L, Chloride Direct 102, Carbon Dioxide 22.7, Anion Gap 12, BUN 12, Creatinine 0.47 L, Estim Creat Clear Calc 137.78, Est GFR (MDRD) Non-Af 112, B UN/Creatinine Ratio 25.6 H, Glucose 97, Calcium 8.1 Micro: Microbiology 12/17/24 11:00 Aspirate - Shoulder Gram Stain - Final 12/17/24 11:00 Aspirate - Shoulder Wound Culture - Preliminary Bacillus sp., not anthracis 12/17/24 11:00 Aspirate - Shoulder Anaerobic Culture - Preliminary No growth in 48 hours. 12/16/24 Unknown Incision/Surgical Site Gram Stain - Final 12/16/24 Unknown Incision/Surgical Site Wound Culture - Final Haemophilus influenzae 12/16/24 Unknown Incision/Surgical Site Anaerobic Culture - Preliminary No growth in 48 hours. 12/16/24 Unknown Incision/Surgical Site Gram Stain - Final 12/16/24 Unknown Incision/Surgical Site Wound Culture - Final Haemophilus influenzae 12/16/24 Unknown Incision/Surgical Site Anaerobic Culture - Preliminary No growth in 48 hours. Imaging Radiology Impression Upper Extremity CT 12/18/24 16:27 IMPRESSION: 1. Findings suggesting of right glenohumeral intra-articular abscess and surrounding soft tissues including the axilla and anterior scapula. Concern for septic joint. No osseous erosions 2. Moderate right pleural effusion with compressive consolidation. 3. Humeral head bone infarct versus bone island One or more dose reduction techniques were used (e.g., Automated exposure control, adjustment of the mA and/or kV according to patient size, use of iterative reconstruction technique). [facility]
[2024-12-19] MEDS: hydrALAZINE 20 MG/ML Vial 10 MG IV ×2 (14:15→20:18)
[2024-12-19] MEDS: 0.9% Saline Lock 10 ML Syringe IV ×2 (14:16→20:18)
--- NOTE | 2024-12-19 14:44 | PRE.ANES_ITS ---
ASA Classification* ASA Classification ASA Classification: 2 Assessment & Plan Anesthesia* Anesthesia Assessment Anesthesia Assessment: Discussed sedation and/or anesthesia options, risks, benefits, and alternatives with patient/parents/legal guardian/POA. Questions invited. The patient/parents/legal guardian/POA seems to understand and agrees to proceed with anesthesia plan. Reviewed the physical assessment, medical history, allergy history and patient home medications list prior to surgery/procedure/anesthetic and documented any changes. Performed airway and anesthesia risk assessments. Anesthesia Type Anesthesia Type: General Anesthesia Focused Assessment* Temperature: 98.2 F Pulse Rate: 97 Blood Pressure: 195/83 Respiratory Rate: 15 Pulse Ox: 97 Oxygen Flow Rate (L/min): 2 Airway Assessment Mouth opens: >3 cm Mallampati Score: II Focused Labs Anesthesia Preop lab: CBC WBC 17.4 K/mm3 (4.4-11.0) H 12/19/24 06: 5 RBC 3.44 M/mm3 (4.2-5.4) L 12/19/24 06:34 12/19/24 Hgb 10.6 g/dL (12.0-15.0) L 12/19/24 06:34 5 Hct 31.8 % (37-47) L 12/19/24 06:34 12/19/24 Plt Count 215 K/mm3 (150-450) 12/19/24 06:34 12/19/24 CHEMISTRY Potassium 3.1 mmol/L (3.3-5.1) L 12/19/24 06:34 12/19/24 Sodium 137 mmol/L (133-145) 12/19/24 06:34 12/19/24 Magnesium 1.8 mg/dL (1.5-2.2) 12/15/24 20:13 12/15/24 Phosphorus 2.4 mg/dL (2.7-4.5) L 12/17/24 05:44 12/17/24 BUN 12 mg/dL (4-19) 12/19/24 06:34 12/19/24 Creatinine 0.47 mg/dL (0.70-1.20) L 12/19/24 06:34 Glucose 97 mg/dL (70-99) 12/19/24 06:34 12/19/24 TSH 1.340 uIU/mL (0.300-4.200) 12/16/24 07:03 11/20 06/12 COAG Pre-Assessment Diagnosis/Proposed Procedure Planned Operative Procedure(s): Arthroscopy, Incision and drainage of Shoulder Anesthesia History 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 When Was Last Pacemaker Check QUESTION #4 FULL TEXT: You/Your Family Experience fever (hyperthermia) with Anesthesia Last Oral Intake Last Oral intake: Last Oral Intake NPO since 09:30 12/19/24 13:35 Meds taken in AM with sips of Yes 12/19/24 13:35 water? Meds patient instructed to tylenol and oxycodone w/sip 12/19/24 13:35 take am of surgery of [id number] PONV PONV - aoc plans intelligence officer chief: PONV - aoc plans intelligence officer chief Female HX of Motion Sickness HX of N/V After Surgery Non-Smoker Duration of Surgery greater than 60 minutes Number of Risk Factors PONV Score Height & Weight Height & Weight: Anesthesia: Height & Weight Height 5 ft 6 in 12/19/24 13:35 Weight: 74.3 kg 12/19/24 13:35 Body Mass Index (BMI) 26.4 12/19/24 13:35 Respiratory Assessment Respiratory Assessment - aoc plans intelligence officer chief: Respiratory Tract Infection Hx - aoc plans intelligence officer chief Hx Respiratory Tract Infection Yes: flu A 12/1512/19/24 06:07 STOP Sleep Apnea STOP Sleep Apnea - aoc plans intelligence officer chief: STOP Sleep Apnea - aoc plans intelligence officer chief Hx Hypertension No 12/19/24 14:16 Hx Sleep Apnea No 12/17/24 11:45 CPAP BIPAP Do you snore loudly (louder No 12/15/24 23:46 than talking or can be heard Do you often feel tired/ No 12/15/24 23:46 fatigued/ sleepy during daytime? Has anyone observed you stop No 12/15/24 23:46 breathing during sleep? STOP Results Negative 12/15/24 23:46 QUESTION #5 FULL TEXT : Do you snore loudly (louder than talking or can be heard through closed doors)? 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 Specify any problems Hx of Preganancy in last 3 N/A 12/15/24 23:46 Months Nurse Filling Out Transfusion [email or web address] 12/15/24 23:46 & Questions: Date: 12/15/24 12/15/24 23:46 Time: 23:53 12/15/24 23:46 Patient unable to answer at this time (ie. confused, unrespo /Reproduction History /Reproductive History - aoc plans intelligence officer chief: /Reproductive Hx- aoc plans intelligence officer chief Hx Now No 12/19/24 06:07 Gestational Age (in weeks): EDC: Hx Hx Para Hx Section SAB No 12/19/24 06:07 Active Medications Active Medications: Current Medications Generic Name Dose Route Start Last Admin Trade Name Freq PRN Reason Stop Dose Admin Acetaminophen 1,000 mg 12/16/24 22:00 12/19/24 13:27 Acetaminophen 500 Mg Tablet PO 1,000 mg Q8 AVRIL Administration Heparin Sodium (Porcine) 5,000 units 12/17/24 22:00 12/18/24 21:17 Heparin Injection 5,000 Units/Ml Syringe SC 5,000 units BID AVRIL Administration Hydralazine HCl 10 mg 12/19/24 14:00 12/19/24 14:15 Hydralazine 20 Mg/Ml Vial IV 10 mg Q6H PRN PRN Administration Systolic greater than 160 Protocol Sodium Chloride 100 mls @ 15 mls/hr 12/15/24 23:56 IV .Q6H40M PRN Saline Flush Sodium Chloride 100 mls @ 15 mls/hr 12/15/24 23:56 IV .Q6H40M PRN Additional IVPB Infusion Ampicillin Sodium/Sulbactam 112 mls @ 150 mls/hr 12/18/24 14:00 12/19/24 13:26 Sodium 3 gm/ Sodium Chloride IV 150 mls/hr Q8 AVRIL Administration Lisinopril 10 mg 12/20/24 10:00 Lisinopril 10 Mg Tablet PO DAILY AVRIL Protocol Ondansetron HCl 4 mg 12/15/24 23:46 Ondansetron 4 Mg/2 Ml Vial IV Q8H PRN PRN NAUSEA/VOMITING Oxycodone HCl 5 mg 12/16/24 16:26 12/19/24 13:33 Oxycodone 5 Mg Tablet PO 5 mg Q4H PRN PRN Administration Pain Score 6-10 Sodium Chloride 10 - 40 ml 12/15/24 23:56 12/19/24 14:16 0.9% Saline Lock 10 Ml Syringe IV 10 ml UD PRN Administration SALINE FLUSH PFSH Medical History BRCA gene positive Breast cancer metastasized to axillary lymph node Breast cancer, right breast Rheumatoid arthritis Home Medications ?Medication ?Instructions ?Recorded ?Last Taken ?Type multivitamin 1 tab PO DAILY general healt h 11/29/18 Unknown History anastrozole 1 mg tablet 1 mg PO DAILY arthritis 09/19 04/06 Unknown History ferrous sulfate 325 mg (65 mg 325 mg PO DAILY anemia 1 12/14/18 Unknown History iron) tablet leflunomide 10 mg tablet (Arava) 20 mg PO DAILY arthri tis 12/19/19 Unknown History calcium 500 mg (as 1 ea PO BID def. 02/21/20 Un known History carbonate)-vitamin D3 15 mcg (600 unit) tablet certolizumab pegol 400 mg/2 mL 200 mg subcut Q2W arthr itis 12/31/20 Unknown History (200 mg/mL x2) subcutaneous syringe kit (Cimzia) hydroxychloroquine 200 mg tablet 200 mg PO BID arthrit is 07/09/21 Unknown History hydrocortisone 2.5 % topical 1 applic topical BID PRN perineal 12/15/24 Unknown History ointment area leflunomide 20 mg tablet 20 mg PO DAILY arthritis Unknown History prednisone 10 mg tablet 20 mg PO BID swollen neck Unknown History prednisone 20 mg tablet 20 mg PO BID swollen neck Unknown History Allergy/AdvReac Type Severity Reaction Status Date / Time No Known Allergies Allergy Verified 12/15/24 19:45 Family History Son Diabetes Grandfather Heart disease Mother Cancer possible throat cancer (Went through radiation) Father Cancer lung Surgical History S/P bilateral salpingo-oophorectomy S/P breast reconstruction S/P bilateral mastectomy Status post right breast lumpectomy (~12/2018) History of tonsillectomy Social History household members: none housing: apartment current occupational status: employed Smoking Status: Never smoker alcohol intake: current alcohol intake frequency: holidays/special occasions only substance use type: does not use caffeine: Yes what type of physical activity do you participate in: walking and aerobics frequency: 5-6 times per week seatbelt use: always do you feel safe at home: Yes additional social history: Patient works at [employer], [employer] home Review of Systems (Anesthesia) ROS Narrative System reviewed and no additional complaints, except as documented.
[2024-12-19] MEDS: 0.9% Normal Saline (1000mL) 1,000 ML 15 ML IV (14:49)
[2024-12-19] MEDS: Epinephrine (1 mg/ml) 1 MG/ML VIAL (16:20)
[2024-12-19] MEDS: Bupivacaine Mpf 0.5% 30 ML VIAL (16:30)
--- NOTE | 2024-12-19 16:51 | PCM.POST.ANE ---
Anesthesia: Postop Eval I Current Vital Signs Temperature: 98.3 F Pulse Rate: 108 Blood Pressure: 154/77 Respiratory Rate: 20 Pulse Ox: 99 Oxygen Delivery Method: Venturi Mask Oxygen Flow Rate (L/min): 8 Assessment Airway patent: Yes Spontaneous unlabored respirations: Yes Mental status: Awake nausea: No Vomiting: No Anesthesia Complication: No Fluid Hydration Crystalloid volume administer (ml): 900 Total IV fluid infused: 900 Progress Note Anesthesia document: Postop Eval 1 completed: Yes
--- NOTE | 2024-12-19 16:52 | PCM.OPRPT ---
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: No Type of Anesthesia: General RN Documented Start/Stop Times: Operation Date: 12/19/24 16:45 Case Time Into Pre-Op 12/19/24 14:35 Out of Pre-Op 12/19/24 15:38 Anesthesia Start 12/19/24 15:41 Into Room 12/19/24 15:41 Procedure Start 12/19/24 16:10 Procedure End 12/19/24 16:35 Anesthesia End 12/19/24 16:40 Out of Room 12/19/24 16:40 Into Recovery 12/19/24 16:45 Procedure Start Time: 16:10 Procedure Stop Time: 16:35 Select all DRAINS/GRAFTS/IMPLANTS that apply: None Estimated Blood Loss: 10 cc Specimen collected: Yes Description of specimen(s) removed: Right shoulder synovial fluid Description of surgery: Patient was identified in the preoperative holding area by name, medical record number, and date of . The operative extremity was marked. Patient was then brought to the operative suite. She was positioned supine on a standard operating table. General anesthesia was induced and endotracheal tube placed. We then performed a timeout confirming the side, site, and operation to be performed. No concerns were voiced and we elected to proceed with surgery. Patient was receiving scheduled Zosyn and did not require preoperative dose. Patient was then positioned in a lateral decubitus position with the right side up. Axillary roll was placed. All bony prominences were well-padded. We spun the bed 45 degrees. She was held in place with a beanbag. Right upper extremity was then prepped and draped in a normal, sterile orthopedic fashion. 10 pounds of traction was applied to left arm through an arthroscopic traction tower. Standard posterior portal was then established with 11 blade scalpel. Blunt tipped trocar was used to enter the glenohumeral joint. Minimal turbid fluid was noted, no gross purulence. Arthroscope was introduced. The joint was filled with normal saline with epinephrine. Diagnostic arthroscopy elevated extensive synovitis, labral fraying, capsulitis. Anterior interval portal was established. Shaver was used to debride synovitis, capsular tissue and degenerative labral fraying. Cartilage appeared pristine. Minimal fraying of the articular sided supraspinatus was noted. Biceps tendon was pristine. I then placed a an 18-gauge needle through the anterior lateral shoulder through the anterior head of the deltoid into the subdeltoid bursa. Turbid fluid was aspirated and sent for culture. An anterior superior lateral portal was then established through this vector. Shaver was introduced. Approximately 4 L normal saline with epinephrine was then washed through the glenohumeral joint. At this time I withdrew the arthroscope and reentered the shoulder and subacromial space. Lateral portal was established. Bursitis was noted and debrided with arthroscopic shaver. Bursal sided rotator cuff appeared pristine. No obvious purulence was noted in the subacromial space. Approximately 2 L was lavaged through the subacromial space. Arthroscopic instruments were then removed. Portal sites were closed in interrupted [id number] fashion. Field and intra-articular block was administered with 30 cc total half percent bupivacaine plain. Bulky sterile compression dressing was applied. She was placed in a simple sling. She was awakened from anesthesia and extubated the operative suite. She was transferred to her gurney and subsequently to PACU in stable condition. Postoperative plan: Transferred back to [facility] after meeting PACU criteria. Sling for comfort right upper extremity. Regular diet. Heparin to restart tomorrow. No plan for repeat I&D of involved joints at this time. From my standpoint if patient responds well to I&D, reasonable for possible discharge home tomorrow once definitive antibiotic recommendations are determined. Defer to ID and primary regarding PICC versus p.o. antibiotics. OT ordered for range of motion bilateral upper extremities. Surgical Findings: Turbid fluid in the subdeltoid bursa, sent for culture Complications Complications: No Admit VTE Documentation VTE Present on Admission: No VTE Mechan Device Prophylaxis: SCD's VTE Pharm Prophylaxis ordered?: Yes
--- NOTE | 2024-12-19 17:15 | POSTOPAN2_ITS ---
Anesthesia Postop Eval I Sum Postop Eval Completion status Anesthesia document: Postop Eval 1 completed: Yes Anesthesia Postop Eval I Summary Anesthesia Postop Eval I Summary: Anesthesia Postop Eval I: Assessment Summary Airway patent Yes 12/19/24 16:52 [email or web address] Spontaneous unlabored Yes 12/19/24 16:52 [email or web address] respirations Mental status Awake 12/19/24 16:52 [email or web address] nausea No 12/19/24 16:52 CITY [email or web address] Vomiting No 12/19/24 16:52 CITY [email or web address] Anesthesia Postop Eval I: Fluid Summary Crystalloid volume administer 900 12/19/24 16:52 CITY [email or web address] (ml) Colloids volume administered ( ml) Blood Product volume administered (ml) Total IV fluid infused 900 12/19/24 16:52 CITY [email or web address] Anesthesia Postop Eval I: Summary Notes Anesthesia Complication No 12/19/24 16:52 CITY [email or web address] Anesthesia Complication Comment: Post-operative progress note Anesthesia: Postop Eval II Evaluation Mental status: Awake Pain Level: 2 nausea: No Vomiting: No
--- NOTE | 2024-12-19 17:15 | PCM.POSTANE2 ---
Anesthesia Postop Eval I Sum Postop Eval Completion status Anesthesia document: Postop Eval 1 completed: Yes Anesthesia Postop Eval I Summary Anesthesia Postop Eval I Summary: Anesthesia Postop Eval I: Assessment Summary Airway patent Yes 12/19/24 16:52 [email or web address] Spontaneous unlabored Yes 12/19/24 16:52 [email or web address] respirations Mental status Awake 12/19/24 16:52 [email or web address] nausea No 12/19/24 16:52 [email or web address] [email or web address] Vomiting No 12/19/24 16:52 [email or web address] Anesthesia Postop Eval I: Fluid Summary Crystalloid volume administer 900 12/19/24 16:52 [email or web address] (ml) Colloids volume administered ( ml) Blood Product volume administered (ml) Total IV fluid infused 900 12/19/24 16:52 [email or web address] Anesthesia Postop Eval I: Summary Notes Anesthesia Complication No 12/19/24 16:52 [email or web address] Anesthesia Complication Comment: Post-operative progress note Anesthesia: Postop Eval II Evaluation Mental status: Awake Pain Level: 2 nausea: No Vomiting: No
--- NOTE | 2024-12-19 17:16 | ANES.CONF2 ---
Anesthesia: Confirm Documents Multiple Procedures on Account (3) Confirmed Documents: Yes
[2024-12-20] VITALS (8 sets, daily range): BP systolic 143–161; BP diastolic 73–104; PULSE 78–91; RESP 14–16; TEMP 36.5–37; O2SAT 94–96; BMI 26.2
[2024-12-20] MEDS: hydrALAZINE 20 MG/ML Vial 10 MG IV (03:58)
[2024-12-20] MEDS: 0.9% Saline Lock 10 ML Syringe IV ×2 (03:59→22:10)
[2024-12-20] MEDS: Ampicillin/Sulbactam 3 GM in 0.9% Normal Saline (100mL MB+) 100 ML IV ×3 (06:25→22:07)
[2024-12-20] MEDS: Acetaminophen 500 MG Tablet 1000 MG PO ×3 (06:30→22:08)
[2024-12-20 07:56] LABS: Absolute Lymphocyte Count 1.93 X10^3/uL (0.83-4.51); Absolute Neutrophil Count 13.9 X10^3/uL (2.0-7.7); Basophil# 0.11 X10^3/uL; Basophil% 0.6 % (0-1); Hematocrit 34.1 % (37-47); Hemoglobin 11.6 g/dL (12.0-15.0); Lymphocyte # 1.93 X10^3/ul (0.83-4.51); Lymphocyte % 10.9 % (19-41); Mean Corpuscular Hgb 31.3 pg (27.0-32.0); Mean Corpuscular Volume 91.9 fL (81-99); Mean Platelet Vol. 9.7 fl (6.2-12.0); Monocyte% 6.8 % (0-10); NRBC Flagged by Analyzer 0 % (0-5); Neutrophil # 13.94 X10^3/uL (2.7-7.7); Neutrophil % 78.4 % (47-70); Platelet Count 255 K/mm3 (150-450); RBC Distribution Width CV 13.2 % (11.6-14.6); RBC Distribution Width SD 44.7 fl (35.1-43.9); Red Blood Count 3.71 M/mm3 (4.2-5.4); White Blood Count 17.8 K/mm3 (4.4-11.0)
[2024-12-20 09:29] LABS: Anion Gap 14 (5-15); BUN 14 mg/dL (4-19); BUN/Creat Ratio 32.4 RATIO (10-20); Calcium 8.3 mg/dL (7.6-11.0); Carbon Dioxide 23.1 mmol/L (22.0-29.0); Chloride 105 mmol/L (96-108); Creatinine, Serum 0.43 mg/dL (0.70-1.20); EST Glomerular Filtration Rate 114 (>60); Glucose 122 mg/dL (70-99); Potassium 3.7 mmol/L (3.3-5.1); Sodium Level 142 mmol/L (133-145)
--- NOTE | 2024-12-20 10:02 | PCM.PN.HOSP ---
Subjective Subjective Doing well, had a right shoulder washout yesterday. PT/OT are pending to see her today Objective Data Objective Data Vital Signs: Vital Signs Temp Pulse Resp BP Pulse Ox O2 Del Method O2 Flow Rate 98.6 F 78 16 161/83 H 96 Room Air 2 12/20/24 03:53 12/20/24 03:58 12/20/24 03:53 12/20/24 03:58 12/20/24 03:53 12/20/24 03:53 12/19/24 17:28 Oxygen Flow Rate (L/min) 2 Oxygen Delivery Method Room Air Weight: 163 lb 9.328 oz Body Mass Index (BMI) 26.2 Intake & Output: Intake and Output for Last 24 Hours 12/19/24 12/20/24 12/21/24 03:59 03:59 03:59 Intake Total 1301.93 / 1301.93 1711 / 1711 112 / 112 Balance 1301.93 / 1301.93 1711 / 1711 112 / 112 Lab / Micro Data 12/20/24 07:29 12/20/24 07:29 Labs: Laboratory Results - last 24 hr 12/20/24 07:29: WBC 17.8 H, RBC 3.71 L, Hgb 11.6 L, Hct 34.1 L, MCV 91.9, MCH 31.3, MCHC 34.0, RDW Std Deviation 44.7 H, RDW Coeff of Myla 13.2, Plt Count 255, MPV 9.7, Immature Gran % (Auto) 3.300 H, Neut % (Auto) 78.4 H, Lymph % (Auto) 10.9 L, [place] % (Auto) 6.8, Eos % (Auto) 0.0, Baso % (Auto) 0.6, Absolute Neuts (auto) 13.9 H, Absolute Lymphs (auto) 1.93, Nucleated RBC % 0, Sodium 142, Potassium 3.7, Chloride Direct 105, Carbon Dioxide 23.1, Anion Gap 14, BUN 14, Creatinine 0.43 L, Estim Creat Clear Calc 150.50, Est GFR (MDRD) Non-Af 114, BUN/Creatinine Ratio 32.4 H, Glucose 122 H, Calcium 8.3 Micro: Microbiology 12/17/24 11:00 Aspirate - Shoulder Gram Stain - Final 12/17/24 11:00 Aspirate - Shoulder Wound Culture - Final Bacillus sp., not anthracis 12/17/24 11:00 Aspirate - Shoulder Anaerobic Culture - Preliminary No growth in 48 hours. 12/16/24 Unknown Incision/Surgical Site Gram Stain - Final 12/16/24 Unknown Incision/Surgical Site Wound Culture - Final Haemophilus influenzae 12/16/24 Unknown Incision/Surgical Site Anaerobic Culture - Preliminary No growth in 48 hours. 12/16/24 Unknown Incision/Surgical Site Gram Stain - Final 12/16/24 Unknown Incision/Surgical Site Wound Culture - Final Haemophilus influenzae 12/16/24 Unknown Incision/Surgical Site Anaerobic Culture - Preliminary No growth in 48 hours. 12/15/24 21:37 Fluid - Synovial (joint) Gram Stain - Final 12/15/24 21:37 Fluid - Synovial (joint) Body Fluid Culture - Final Haemophilus influenzae 12/15/24 21:37 Fluid - Synovial (joint) Anaerobic Culture - Preliminary No growth in 48 hours. 12/15/24 22:21 Blood Culture (Wb) - Anticubital Right Blood Culture - Final Haemophilus influenzae 12/15/24 22:21 Blood Culture (Wb) - Right Forearm Blood Culture - Final Haemophilus influenzae Physical Exam Narrative General: Alert, Oriented x3, Cooperative, No apparent distress HEENT: Atraumatic, PERRLA, EOMI, Normocephalic Oral: Moist Mucosa Neck: Supple, No JVD Lungs: Diminished, Normal air movement, No rhonchi, No wheeze, No rales Cardiovascular: Regular rate, Regular Rhythm, Normal S1, Normal S2, No murmurs Abdomen: Soft, Non Tender, Non-Distended, No Hepato-splenomegaly Extremities: No edema, Capillary Refill Less than 3 Seconds Skin: Left arm in a sling, dressings intact, right shoulder dressing is also intact Musculoskeletal: No Tenderness to Palpation of Joints or Extremities Neurological: No focal neurological deficits, Motor Exam 5/5 strength throughout, Sensory exam intact to light touch and pain Psych/Mental Status: Normal Affect, Appropriate Assessment & Plan Assessment/Plan (1) Septic arthritis of wrist, left: QUALIFIERS: Septic arthritis organism: due to unspecified organism Qualified Code(s): M00.9 - Pyogenic arthritis, unspecified (2) Influenza A: PLAN: Plan 1. Septic arthritis of her left wrist with left upper extremity cellulitis and possible septic arthritis of her left shoulder/hypertension ? Wound culture with haemophilus influenza, continue with Unasyn, appreciate IDs assistance ? Blood cultures also with haemophilus influenza, her left shoulder is also growing haemophilus influenza however her right shoulder is growing bacillus species ? Appreciate orthopedic surgery's assistance ? CRP on admission of 412 ? PT/OT for evaluation ? As needed hydralazine is available, we will start her on lisinopril this morning and monitor renal function 2. Influenza A ? She is maintaining her oxygen saturations on room air, symptoms started 6 days prior to admission ? She was taking steroids as an outpatient, will discontinue given her current infection status 3. 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 Will hold her leflunomide and hydroxychloroquine and certolizumab until infection has been contained 4. Iron deficiency anemia ? Continue with iron replacement when able to take p.o. DVT: SCDs Charges/Coding Visit Charges Inpatient E&M: 41965 Subs Hosp L2
--- NOTE | 2024-12-20 10:21 | PCM.PN.ID ---
Physical Exam Narrative Feeling better, pain improved, no fever, no n/v/d. Const alert and no apparent distress General Appearance: cooperative Resp normal air movement and clear to auscultation bilaterally Cardio regular rate and regular rhythm GI soft to palpation, non-tender and non-distended Skin no rashes or lesions noted ID ID: Route of nutrition/ use of supplements: [] Nutritional Intake: [] IV Site: [] Lopez Catheter: [] Assessment & Plan Assessment/Plan (1) Septic arthritis of shoulder, left: QUALIFIERS: Septic arthritis organism: due to unspecified organism Qualified Code(s): M00.9 - Pyogenic arthritis, unspecified (2) Septic arthritis of wrist, left: QUALIFIERS: Septic arthritis organism: due to unspecified organism Qualified Code(s): M00.9 - Pyogenic arthritis, unspecified (3) Septic arthritis of shoulder, right: QUALIFIERS: Septic arthritis organism: due to unspecified organism Qualified Code(s): M00.9 - Pyogenic arthritis, unspecified (4) Rheumatoid arthritis: QUALIFIERS: Rheumatoid arthritis location: wrist Rheumatoid factor presence: unspecified presence Laterality: left Qualified Code(s): M06.9 - Rheumatoid arthritis, unspecified (5) Bacteremia due to Gram-negative bacteria: PLAN: H. flu bacteremia with septic arthritis of bilat shoulders and L wrist. Cxs with H. flu, except one with bacillus. OR again 12/19/[address] Evangelista for R shoulder, cont unasyn while inpatient. QTC is 400. Plan for discharge will be two weeks po cipro 500mg bid and flagyl 500mg tid. Will follow
[2024-12-20] MEDS: Lisinopril 10 MG Tablet PO (10:45)
--- NOTE | 2024-12-20 11:37 | PN.ORTHO_ITS ---
Subjective Subjective Patient is s/p left wrist irrigation and debridement with synovectomy 12/16/[address] Evangelista Due to left wrist septic arthritis. Status post left shoulder arthroscopic irrigation and debridement of synovitis, capsular tissue, subacromial bursa and labral fraying 12/17/2024 secondary to left shoulder septic arthritis with Dr. Evangelista. She is also status post most recently right shoulder arthroscopic irrigation and debridement 12/19/[address] Evangelista for right shoulder septic arthritis. Intraoperative cultures from left wrist 12/16/2024 revealed haemophilus influenza. Intraoperative cultures from left septic shoulder are growing bacillus species, not anthracis. Intraoperative cultures from 12/19/2024 right septic shoulder are pending at this point in time. Infectious disease is currently managing antibiotics. Currently on Unasyn. appears she may be transitioning to oral ABX upon discharge. Patient resting comfortably in bed. Rates pain 3/ 10 at rest. With movement 5 /10. States taking Tylenol and oxycodone as needed and ice help to relieve pain. Patient has participating with therapy. Orthopedically patient has no restrictions of left wrist, left shoulder or right shoulder. Range of motion and strength as tolerated. May use brace or sling only as needed for comfort. Okay for weightbearing to all extremities. Afebrile, no chest pain, shortness of breath, negative calf pain/ erythema, and no other signs of DVT. Objective Data Objective Data Vital Signs: Vital Signs Temp Pulse Resp BP Pulse Ox O2 Del Method O2 Flow Rate 97.7 F L 91 16 144/73 H 96 Room Air 2 12/20/24 11:35 12/20/24 11:35 12/20/24 11:35 12/20/24 11:35 12/20/24 11:35 12/20/24 11:35 12/19/24 17:28 Oxygen Flow Rate (L/min) 2 Oxygen Delivery Method Room Air Weight: 74.2 kg Body Mass Index (BMI) 26.2 Intake & Output: Intake and Output for Last 24 Hours 12/18/24 12/19/24 12/20/24 23:59 23:59 23:59 Intake Total 1039.93 / 1239.93 2022 112 / 112 Balance 1039.93 / 1239.93 2022 112 / 112 Lab / Micro Data 12/20/24 07:29 12/20/24 07:29 Labs: Laboratory Results - last 24 hr 12/20/24 07:29: WBC 17.8 H, RBC 3.71 L, Hgb 11.6 L, Hct 34.1 L, MCV 91.9, MCH 31.3, MCHC 34.0, RDW Std Deviation 44.7 H, RDW Coeff of Myla 13.2, Plt Count 255, MPV 9.7, Immature Gran % (Auto) 3.300 H, Neut % (Auto) 78.4 H, Lymph % (Auto) 10.9 L, [place] % (Auto) 6.8, Eos % (Auto) 0.0, Baso % (Auto) 0.6, Absolute Neuts (auto) 13.9 H, Absolute Lymphs (auto) 1.93, Nucleated RBC % 0, Sodium 142, Potassium 3.7, Chloride Direct 105, Carbon Dioxide 23.1, Anion Gap 14, BUN 14, C reatinine 0.43 L, Estim Creat Clear Calc 150.50, Est GFR (MDRD) Non-Af 114, B UN/Creatinine Ratio 32.4 H, Glucose 122 H, Calcium 8.3 Micro: Microbiology 12/15/24 21:37 Fluid - Synovial (joint) Gram Stain - Final 12/15/24 21:37 Fluid - Synovial (joint) Body Fluid Culture - Final Haemophilus influenzae 12/15/24 21:37 Fluid - Synovial (joint) Anaerobic Culture - Final No growth in 5 days. 12/17/24 11:00 Aspirate - Shoulder Gram Stain - Final 12/17/24 11:00 Aspirate - Shoulder Wound Culture - Final Bacillus sp., not anthracis 12/17/24 11:00 Aspirate - Shoulder Anaerobic Culture - Preliminary No growth in 48 hours. 12/16/24 Unknown Incision/Surgical Site Gram Stain - Final 12/16/24 Unknown Incision/Surgical Site Wound Culture - Final Haemophilus influenzae 12/16/24 Unknown Incision/Surgical Site Anaerobic Culture - Preliminary No growth in 48 hours. 12/16/24 Unknown Incision/Surgical Site Gram Stain - Final 12/16/24 Unknown Incision/Surgical Site Wound Culture - Final Haemophilus influenzae 12/16/24 Unknown Incision/Surgical Site Anaerobic Culture - Preliminary No growth in 48 hours. 12/15/24 22:21 Blood Culture (Wb) - Anticubital Right Blood Culture - Final Haemophilus influenzae 12/15/24 22:21 Blood Culture (Wb) - Right Forearm Blood Culture - Final Haemophilus influenzae Physical Exam Narrative Patient resting comfortably in bedside chair No signs of acute distress Satting well on room air right shoulder sling in place. tolerated minimal passive and active ROM. sutures open to air left shoulder no sling, tolerated minimal passive and active ROM. sutures open to air left wrist with post op bandage in place. no drainage. tolerated minimal passive and active ROM incisions to left wrist, left shoulder, and right shoulder are all d/c/I , sutures intact. no drainage. no erythema. sensation intact throughout left upper extremity and right upper extremity intact motor to radial, median, ulnar nerve distribution. radial pulses bounding bilaterally. Calf nontender to palpation, no erythema, no edema. Negative Hom[place] Assessment & Plan Assessment/Plan (1) Septic arthritis of wrist, left: QUALIFIERS: Septic arthritis organism: due to unspecified organism Qualified Code(s): M00.9 - Pyogenic arthritis, unspecified PLAN: 1. May continue therapy as tolerated. Range of motion weightbearing and strengthening to left wrist, left shoulder and right shoulder as she tolerates. No restrictions from an orthopedic standpoint. Sling or brace for comfort only. 2. plan for discharge per primary team. Orthopedically okay to be discharged when stable medically. 3. Patient will follow up in the office approximately 2 weeks from discharge sutures to be removed at that time. This will need to be arranged. 4. WBC 17.8 . Patient remains afebrile and currently on Unasyn for septic left wrist, left shoulder, right shoulder. Further antibiotic recommendations and ultimate discharge treatment per infectious disease. Will continue to follow cultures. 5. H/H 11.6/34.1: post operavtive anemia secondary to acute blood loss intraoperatively. Patient is asymptomatic at this time. No intraoperative complications. will continue to monitor. no acute interventions. 6. DVT prophylaxis : Currently on heparin. From orthopedic standpoint may transition to oral anticoagulation or other needs for DVT prophylaxis. Heparin drip was only in anticipation if needed for further operations. Ultimately DVT prophylaxis per primary. From an orthopedic standpoint patient only needs to continue DVT prophylaxis 2 weeks postoperatively. We are okay with aspirin 1 mg twice daily. 7. Pain control: patient instructed to take tylenol 500mg 2 tablets TID. and oxycodone 1-2 tablets every 4-6 hours only as needed for pain control. 8. ok to remove post op dressings day 1. ok to shower on POD 3. 9. orthopaedics to sign off at this time. (2) Septic arthritis of shoulder, right: QUALIFIERS: Septic arthritis organism: due to unspecified organism Qualified Code(s): M00.9 - Pyogenic arthritis, unspecified (3) Septic arthritis of shoulder, left: QUALIFIERS: Septic arthritis organism: due to unspecified organism Qualified Code(s): M00.9 - Pyogenic arthritis, unspecified
[2024-12-20] MEDS: Heparin Injection (Vial) 5,000 UNIT/ML VIAL 5000 UNIT SC (22:08)
[2024-12-21 03:25] VITALS: BP 158/83; PULSE 88; RESP 16; TEMP 36.7; O2SAT 98
[2024-12-21] MEDS: Ampicillin/Sulbactam 3 GM in 0.9% Normal Saline (100mL MB+) 100 ML IV ×2 (06:26→13:37)
[2024-12-21] MEDS: Acetaminophen 500 MG Tablet 1000 MG PO ×2 (06:30→13:37)
[2024-12-21 07:23] LABS: Absolute Neutrophil Count 8.9 X10^3/uL (2.0-7.7); Basophil# 0.03 X10^3/uL; Basophil% 0.2 % (0-1); Eosinophil# 0.05 X10^3/uL; Eosinophils% 0.4 % (0-5); Hematocrit 30.3 % (37-47); Hemoglobin 10.2 g/dL (12.0-15.0); Mean Corp Hgb Conc 33.7 g/dL (32-36); Mean Corpuscular Hgb 31.5 pg (27.0-32.0); Mean Corpuscular Volume 93.5 fL (81-99); Mean Platelet Vol. 9.4 fl (6.2-12.0); Monocyte# 0.96 X10^3/uL; Monocyte% 6.8 % (0-10); NRBC Flagged by Analyzer 0 % (0-5); Neutrophil # 8.89 X10^3/uL (2.7-7.7); Platelet Count 290 K/mm3 (150-450); RBC Distribution Width CV 13.3 % (11.6-14.6); RBC Distribution Width SD 45.4 fl (35.1-43.9); Red Blood Count 3.24 M/mm3 (4.2-5.4); White Blood Count 14.1 K/mm3 (4.4-11.0)
[2024-12-21 08:20] LABS: Anion Gap 12 (5-15); BUN 18 mg/dL (4-19); BUN/Creat Ratio 36.3 RATIO (10-20); Calcium,Total 7.9 mg/dL (7.6-11.0); Carbon Dioxide 24.2 mmol/L (21.0-32.0); Chloride 108 mmol/L (98-108); Creatinine, Serum 0.48 mg/dL (0.70-1.20); EST Glomerular Filtration Rate 111 (>60); Estimated Creatinine Clearance 134.83 ml/min (50-250); Glucose 80 mg/dL (70-99); Potassium 3.3 mmol/L (3.3-5.1); Sodium Level 144 mmol/L (133-145)
[2024-12-21 09:03] VITALS: BP 174/99; PULSE 101; RESP 18; TEMP 36.8; O2SAT 98
[2024-12-21] MEDS: Heparin Injection (Vial) 5,000 UNIT/ML VIAL 5000 UNIT SC (09:10)
[2024-12-21] MEDS: oxyCODONE 5 MG Tablet PO (09:10)
[2024-12-21] MEDS: Lisinopril 10 MG Tablet PO (09:10)
--- NOTE | 2024-12-21 10:58 | PCM.PN.HOSP ---
Reason for Visit Reason for Visit: Diagnoses Immunodeficiency, unspecified (12/15/24) Dehydration (12/15/24) Influenza due to other identified influenza virus with other respiratory manifestations (12/15/24) Pyogenic arthritis, unspecified (12/15/24) Rheumatoid arthritis, unspecified (12/15/24) Pain in right shoulder (12/15/24) Pain in left shoulder (12/15/24) Bacteremia (12/15/24) Subjective Subjective Patient is a 54-year-old lady with history of rheumatoid arthritis on leflunomide and hydroxychloroquine presented with flulike symptoms as well as pain in the left hand and arm and assessment of septic arthritis of the left wrist with left upper extremity cellulitis and possible septic arthritis of the left shoulder made admitted to regular nursing floor for further management Objective Data Objective Data Vital Signs: Vital Signs Temp Pulse Resp BP Pulse Ox O2 Del Method O2 Flow Rate 98.2 F 101 H 18 174/99 H 98 Room Air 2 12/21/24 09:03 12/21/24 09:03 12/21/24 09:03 12/21/24 09:03 12/21/24 09:03 12/21/24 09:03 12/19/24 17:28 Oxygen Flow Rate (L/min) 2 Oxygen Delivery Method Room Air Weight: 74.2 kg Body Mass Index (BMI) 26.2 Intake & Output: Intake and Output for Last 24 Hours 12/19/24 12/20/24 12/21/24 23:59 23:59 23:59 Intake Total 2022 836 / 836 112 / 112 Balance 2022 836 / 836 112 / 112 Lab / Micro Data 12/21/24 06:50 12/21/24 06:50 Labs: Laboratory Results - last 24 hr 12/21/24 06:50: WBC 14.1 H, RBC 3.24 L, Hgb 10.2 L, Hct 30.3 L, MCV 93.5, MCH 31.5, MCHC 33.7, RDW Std Deviation 45.4 H, RDW Coeff of Myla 13.3, Plt Count 290, MPV 9.4, Immature Gran % (Auto) 2.600 H, Neut % (Auto) 63.0, Lymph % (Auto) 27.0, [place] % (Auto) 6.8, Eos % (Auto) 0.4, Baso % (Auto) 0.2, Absolute Neuts (auto) 8.9 H, Absolute Lymphs (auto) 3.80, Nucleated RBC % 0, Sodium 144, Potassium 3.3, Chloride 108, Carbon Dioxide 24.2, Anion Gap 12, BUN 18, Creatinine 0.48 L, Estim Creat Clear Calc 134.83, Est GFR (MDRD) Non-Af 111, BUN/Creatinine Ratio 36.3 H, Glucose 80, Calcium 7.9 Micro: Microbiology 12/16/24 Unknown Incision/Surgical Site Gram Stain - Final 12/16/24 Unknown Incision/Surgical Site Wound Culture - Final Haemophilus influenzae 12/16/24 Unknown Incision/Surgical Site Anaerobic Culture - Final No growth in 5 days. 12/16/24 Unknown Incision/Surgical Site Gram Stain - Final 12/16/24 Unknown Incision/Surgical Site Wound Culture - Final Haemophilus influenzae 12/16/24 Unknown Incision/Surgical Site Anaerobic Culture - Final No growth in 5 days. 12/19/24 07:33 Wound exudate - Aerobic & Anaerobic Swabs Gram Stain - Final 12/19/24 07:33 Wound exudate - Aerobic & Anaerobic Swabs Wound Culture - Preliminary No growth-Final to follow 12/15/24 21:37 Fluid - Synovial (joint) Gram Stain - Final 12/15/24 21:37 Fluid - Synovial (joint) Body Fluid Culture - Final Haemophilus influenzae 12/15/24 21:37 Fluid - Synovial (joint) Anaerobic Culture - Final No growth in 5 days. 12/17/24 11:00 Aspirate - Shoulder Gram Stain - Final 12/17/24 11:00 Aspirate - Shoulder Wound Culture - Final Bacillus sp., not anthracis 12/17/24 11:00 Aspirate - Shoulder Anaerobic Culture - Preliminary No growth in 48 hours. 12/15/24 22:21 Blood Culture (Wb) - Anticubital Right Blood Culture - Final Haemophilus influenzae 12/15/24 22:21 Blood Culture (Wb) - Right Forearm Blood Culture - Final Haemophilus influenzae Physical Exam Narrative GENERAL: cooperative HEENT: Atraumatic; normocephalic EYES; Anicteric, Normal Conjunctiva NECK; supple, normal thyroid, RESPIRATORY: Diminished to auscultation CARDIOVASCULAR: Regular S1 S2, GI: soft, normoactive bowel sounds, : No Renal angle tenderness; EXTREMITIES: No edema, no clubbing, MUSCULOSKELETAL: Right shoulder and left wrist in surgical dressing NEURO: Awake; no lateralizing signs. SKIN: No Rash PSYCH; Flat affect Assessment & Plan Assessment/Plan (1) Septic arthritis of wrist, left: QUALIFIERS: Septic arthritis organism: due to unspecified organism Qualified Code(s): M00.9 - Pyogenic arthritis, unspecified (2) Influenza A: PLAN: Plan Patient is a 54-year-old lady with history of rheumatoid arthritis on leflunomide and hydroxychloroquine presented with flulike symptoms as well as pain in the left hand and arm and assessment of septic arthritis of the left wrist with left upper extremity cellulitis and possible septic arthritis of the right shoulder made admitted to regular nursing floor for further management 1. Septic arthritis of the left wrist as well as bilateral shoulder septic arthritis ?Patient had H. influenzae bacteremia patient underwent Left wrist irrigation and debridement with synovectomy on 12/16/2024, left shoulder arthroscopic irrigation and debridement of synovitis, capsular tissue, subacromial bursa and labral fraying on 12/17/2024, right shoulder arthroscopic irrigation and debridement on 12/19/2024. Procedures performed by Dr. Evangelista with orthopedic surgery. Patient wound cultures grew haemophilus influenza with bacteremia. She also grew bacillus species from her right shoulder. ID on board. Patient remains on Unasyn 2. Acute influenza A infection ? Complicating care symptoms started 6 days prior to admission patient was outside the window for Tamiflu plan is to treat symptomatically 3. Rheumatoid arthritis ? Patient is on leflunomide as well as hydroxychloroquine and certolizumab her medications held given her active infection 4. Anemia ? Secondary to chronic disorder monitoring H&H and transfuse if patient becomes symptomatic or hemoglobin falls below 7 5. History of right breast CVA ? Diagnosed in 2019 patient underwent double mastectomy in 2020. Currently on anastrozole 6. DVT prophylaxis ? On enoxaparin Time spent in the patient's overall evaluation,decision-making process, review of diagnostic data, adjustment of management, discussion with other providers, nursing nursing and ancillary staff involved in patient's care documentation, 50 Minutes Charges/Coding Visit Charges Inpatient E&M: 53623 [facility] L3
--- NOTE | 2024-12-21 13:27 | PCM.DC.SUM ---
Providers Date of Admission: 12/15/24 Date of Discharge: 12/21/24 Primary Care Physician: ELIZABETH Garcia Consultations 12/19/24 07:00 Consult: Infectious Disease Routine Consulting Provider: Travis Muñoz Reason for Consult: wrist and shoulder septic arthritis EMERGENT Consult: No MD Notified: Yes Date Notified: 12/19/24 Time Notified: 07:01 Method of Notification: Text Reason For Visit: SEPTIC ARTHRITIS OF THE LEFT WRIST Diagnosis Discharge Diagnosis (1) Septic arthritis of wrist, left: Status: Acute Code(s): M00.9 - Pyogenic arthritis, unspecified Qualifiers: Septic arthritis organism: due to unspecified organism Qualified Code(s): M00.9 - Pyogenic arthritis, unspecified (2) Influenza A: Status: Acute Code(s): J10.1 - Influenza due to other identified influenza virus with other respiratory manifestations Plan Patient is a 54-year-old lady with history of rheumatoid arthritis on leflunomide and hydroxychloroquine presented with flulike symptoms as well as pain in the left hand and arm and assessment of septic arthritis of the left wrist with left upper extremity cellulitis and possible septic arthritis of the right shoulder made admitted to regular nursing floor for further management 1. Septic arthritis of the left wrist as well as bilateral shoulder septic arthritis ?Patient had H. influenzae bacteremia patient underwent Left wrist irrigation and debridement with synovectomy on 12/16/2024, left shoulder arthroscopic irrigation and debridement of synovitis, capsular tissue, subacromial bursa and labral fraying on 12/17/2024, right shoulder arthroscopic irrigation and debridement on 12/19/2024. Procedures performed by Dr. Evangelista with orthopedic surgery. Patient wound cultures grew haemophilus influenza with bacteremia. She also grew bacillus species from her right shoulder. ID on board. Patient remains on Unasyn -Discharge home on ciprofloxacin as well as Flagyl for 2 weeks per recommendations from Dr. Muñoz 2. Acute influenza A infection ? Complicating care symptoms started 6 days prior to admission patient was outside the window for Tamiflu plan is to treat symptomatically 3. Rheumatoid arthritis ? Patient is on leflunomide as well as hydroxychloroquine and certolizumab her medications held given her active infection ? Medications held for 3 weeks plan is to resume following the completion of antibiotic therapy 4. Anemia ? Secondary to chronic disorder monitoring H&H and transfuse if patient becomes symptomatic or hemoglobin falls below 7 5. History of right breast CVA ? Diagnosed in 2019 patient underwent double mastectomy in 2019. Currently on anastrozole 6. DVT prophylaxis ? On enoxaparin Time spent in the patient's overall evaluation,decision-making process, review of diagnostic data, adjustment of management, discussion with other providers, nursing nursing and ancillary staff involved in patient's care documentation, 50 Minutes Medications at Discharge Home Medications multivitamin 1 tab PO DAILY general health 11/29/18 anastrozole 1 mg tablet 1 mg PO DAILY arthritis 10/13/19 ferrous sulfate 325 mg (65 mg iron) tablet 325 mg PO DAILY anemia 10/13/19 leflunomide 10 mg tablet (Arava) 20 mg PO DAILY arthritis 12/19/19 Held on 12/21/24. Instructions: Resume on 01/09/25. calcium 500 mg (as carbonate)-vitamin D3 15 mcg (600 unit) tablet 1 ea PO BID def. 02/21/20 certolizumab pegol 400 mg/2 mL (200 mg/mL x2) subcutaneous syringe kit (Cimzia) 200 mg subcut Q2W arthritis 12/31/20 hydroxychloroquine 200 mg tablet 200 mg PO .COMPLEX arthritis 07/09/21 Held on 12/21/24. Instructions: Resume on 01/09/25. hydrocortisone 2.5 % topical ointment 1 applic topical BID PRN perineal area 12/15/24 leflunomide 20 mg tablet 20 mg PO DAILY arthritis 12/15/24 Held on 12/21/24. Instructions: Resume on 01/09/25. acetaminophen 500 mg tablet 1,000 mg (2 x 500 mg) PO Q8 #0 tabs 12/21/24 ciprofloxacin HCl 500 mg tablet (Cipro) 500 mg PO BID 14 days #28 tabs 12/21/24 lisinopril 10 mg tablet 10 mg PO DAILY #60 tabs 12/21/24 metronidazole 500 mg tablet 500 mg PO TID 14 days #42 tabs 12/21/24 oxycodone 5 mg tablet 5 mg PO Q4H PRN PRN Pain Score 6-10 5 days #20 tabs 12/21/24 Physical Exam Narrative GENERAL: cooperative HEENT: Atraumatic; normocephalic EYES; Anicteric, Normal Conjunctiva NECK; supple, normal thyroid, RESPIRATORY: Diminished to auscultation CARDIOVASCULAR: Regular S1 S2, GI: soft, normoactive bowel sounds, : No Renal angle tenderness; EXTREMITIES: No edema, no clubbing, MUSCULOSKELETAL: Right shoulder and left wrist in surgical dressing NEURO: Awake; no lateralizing signs. SKIN: No Rash PSYCH; Flat affect Weight / BMI Weight Weight: 74.2 kg Body Mass Index (BMI) 26.2 ABG / Lab / Microbiology Data 12/21/24 06:50 12/21/24 06:50 Laboratory: Laboratory Results - last 24 hr 12/21/24 06:50: WBC 14.1 H, RBC 3.24 L, Hgb 10.2 L, Hct 30.3 L, MCV 93.5, MCH 31.5, MCHC 33.7, RDW Std Deviation 45.4 H, RDW Coeff of Myla 13.3, Plt Count 290, MPV 9.4, Immature Gran % (Auto) 2.600 H, Neut % (Auto) 63.0, Lymph % (Auto) 27.0, [place] % (Auto) 6.8, Eos % (Auto) 0.4, Baso % (Auto) 0.2, Absolute Neuts (auto) 8.9 H, Absolute Lymphs (auto) 3.80, Nucleated RBC % 0, Sodium 144, Potassium 3.3, Chloride 108, Carbon Dioxide 24.2, Anion Gap 12, BUN 18, Creatinine 0.48 L, Estim Creat Clear Calc 134.83, Est GFR (MDRD) Non-Af 111, BUN/Creatinine Ratio 36.3 H, Glucose 80, Calcium 7.9 Microbiology: Microbiology 12/16/24 Unknown Incision/Surgical Site Gram Stain - Final 12/16/24 Unknown Incision/Surgical Site Wound Culture - Final Haemophilus influenzae 12/16/24 Unknown Incision/Surgical Site Anaerobic Culture - Final No growth in 5 days. 12/16/24 Unknown Incision/Surgical Site Gram Stain - Final 12/16/24 Unknown Incision/Surgical Site Wound Culture - Final Haemophilus influenzae 12/16/24 Unknown Incision/Surgical Site Anaerobic Culture - Final No growth in 5 days. 12/19/24 07:33 Wound exudate - Aerobic & Anaerobic Swabs Gram Stain - Final 12/19/24 07:33 Wound exudate - Aerobic & Anaerobic Swabs Wound Culture - Preliminary No growth-Final to follow 12/15/24 21:37 Fluid - Synovial (joint) Gram Stain - Final 12/15/24 21:37 Fluid - Synovial (joint) Body Fluid Culture - Final Haemophilus influenzae 12/15/24 21:37 Fluid - Synovial (joint) Anaerobic Culture - Final No growth in 5 days. 12/17/24 11:00 Aspirate - Shoulder Gram Stain - Final 12/17/24 11:00 Aspirate - Shoulder Wound Culture - Final Bacillus sp., not anthracis 12/17/24 11:00 Aspirate - Shoulder Anaerobic Culture - Preliminary No growth in 48 hours. 12/15/24 22:21 Blood Culture (Wb) - Anticubital Right Blood Culture - Final Haemophilus influenzae 12/15/24 22:21 Blood Culture (Wb) - Right Forearm Blood Culture - Final Haemophilus influenzae D/C Instructions Discharge Diet: No restrictions Discharge Activity: Return to Normal Activity Call your doctor if you observe: Fever of 101 or Higher, Shortness of breath, Fainting spells and Chest pain DC O2, CPAP, BIPAP Needs Home O2 Discharge instructions: No Meaningful Use Info Meaningful Use Meaningful Use Diagnoses (Choose all that apply): None applicable Ischemic Stroke Statin Dosing Therapy Reference: STATIN DOSE THERAPY REFERENCE: * Patients > 75 years receive moderate or high dose statin therapy. * Patients 75 years or YOUNGER should receive HIGH intensity statin dose unless contraindicated. You will be required to document reason for non-treatment if statin daily dose does not meet guidelines. HIGH DOSE STATIN THERAPY DAILY Atorvastatin > than or = to 40 mg Rosuvastatin > than or = to 20 mg Amlodipine + Atorvastatin > than or = to 2.5/40 mg Ezetimibe + Simvastatin 10/80 mg Simvastatin 80mg Discharge Plan Admission Admit Date/Time: 12/15/24 22:31 Attending Provider: Geovany Chirinos Primary Care Provider: Becky Ireland NP Consulting Providers: Geovany Pavon; Travis Muñoz; Gabriel Hernandez Discharge Orders/Prescriptions Prescriptions: New acetaminophen 500 mg Tablet 1,000 mg PO Q8 Qty: 0 0RF lisinopril 10 mg Tablet 10 mg PO DAILY Qty: 60 0RF oxycodone 5 mg Tablet 5 mg PO Q4H PRN PRN (Reason: Pain Score 6-10) 5 Days Qty: 20 0RF ciprofloxacin HCl [Cipro] 500 mg tablet 500 mg PO BID 14 Days Qty: 28 0RF metronidazole 500 mg tablet 500 mg PO TID 14 Days Qty: 42 0RF Continued multivitamin tablet 1 tab PO DAILY Cimzia 400 mg/2 mL (200 mg/mL x 2) syringe kit 200 mg SC Q2W anastrozole 1 MG tablet 1 mg PO DAILY ferrous sulfate 325 MG tablet 325 mg PO DAILY calcium carbonate-vitamin D3 1 EACH tablet 1 ea PO BID hydrocortisone 2.5 % ointment 1 applic topical BID PRN (Reason: perineal area) Held leflunomide [Arava] 10 mg tablet 20 mg PO DAILY Hold Instructions: Resume on 01/09/25. hydroxychloroquine 200 mg tablet 200 mg PO .COMPLEX Hold Instructions: Resume on 01/09/25. Rx Instructions: 200 mg orally; pt takes 200mg at hs leflunomide 20 mg tablet 20 mg PO DAILY Hold Instructions: Resume on 01/09/25. Discontinued prednisone 20 mg tablet 20 mg PO BID prednisone 10 mg tablet 20 mg PO BID Patient Comments: [NO ORIGINAL SIG] Referrals / Follow Up: Gabriel Evangelista DO [Med Staff - Active Staff] - Within 1 Week Travis Muñoz MD [Med Staff - Active Staff] - Within 2 Weeks Becky Ireland NP, REGISTERED DENTAL ASSISTANT RDA-[facility] [Primary Care Provider] - Disposition Disposition (needs filled in before D/C Order can be placed): Home Health Service Charges/Coding Visit Charges Inpatient E&M: 36565 Disch Hosp >30min
[2024-12-21 14:27] VITALS: BP 152/67; PULSE 108; RESP 18; TEMP 37.2; O2SAT 94
--- NOTE | 2024-12-21 14:51 | CASEMGMT ---
Discharge Planning A list of?HH providers including quality and resource use data and consistent with the patient's preferred geographic region, medical needs, and insurance network was created in [facility] Guide.? This list was provided to the RN ROSANNE. Linn Dorantes, Discharge Planning Asst.
--- NOTE | 2024-12-21 15:20 | CASEMGMT ---
Addendum entered by Adrian Herrmann 12/21/24 16:43: Edda SALAMANCA, voices concern w/pt being able to bath self @ home. CHEIKH LAY to room, offered private-duty home care agency list, pt and family decline, stating they have people who can help. CHEIKH LAY also made aware HH may have aide available, and if interested, to talk w/[facility] nurse on Thursday when they come out to see her. Pt/family would like pt to have a shower prior to discharging home. Edda SALAMANCA, aware. Addendum entered by Adrian Herrmann 12/21/24 16:16: Per Maren, they are able to accept pt w/SOC slated for Thursday. Pt will have a 20% co-pay (approx $52 per visit per disciplinary) after she reaches her deductible of $1,828.55. Pt made aware and states she is okay with this, stating, We'll figure it out. Further questions answered. Pt denies having other discharge needs/concerns. Original Note: CHEIKH LAY NOTE: Reviewed OT notes, pt quick to fatigue, and state pt may benefit from further skilled therapy. PT also to work w/pt. Pt has dc order in, pt to dc home on at's. CHEIKH LAY to room. Pt sitting up in chair. Introduced self and role. Pt states she is aware she is to be discharged home today. She lives alone, but states she has asked her brother and sis-in-law if they can stay w/her a couple nights, to assist as needed. She would like [facility]. CHEIKH LAY informed her that her insurance may require her being homebound. She states she did ambulate in the halls today, but has been very fatigued today. She has 2 flights of stairs to get into her apt and states she would be homebound for awhile until she can get some strength and stamina back. Her family can assist her getting up them when she gets home today. She also states family and friends can help w/getting groceries and meal prep. List of [facility] agencies given to pt that was prepared by chaz Esteves budget assistant. Pt would like [facility] as 1st preference. She also states, in addition to therapy, she would like a nurse to see her @ home also. Order placed for HHC: SN and PT/OT. [facility], spoke w/Maren, and referral made. Awaiting response. Pt denies having other discharge needs at this time. Ajya BSN RN CM
== END 2024-12-21 17:38 | disposition home health service (06) | DRG 501 ==
LOC: ED 22:13 → MS3 12-16 00:35
PROVIDERS: Family Medicine; Student in an Organized Health Care Education/Training Program; Admitting Provider Internal Medicine; Emergency Provider Emergency Medicine; PCP Registered Nurse; Referring Provider Emergency Medicine; Visit Provider Internal Medicine
PROC: 0RBP0ZZ Excision of Left Wrist Joint, Open Approach (ICD-10-PCS; principal; 2024-12-16 07:50)
PROC: 0MD24ZZ Extraction of Left Shoulder Bursa and Ligament, Percutaneous Endoscopic Approach (ICD-10-PCS; CPT 29805; principal; 2024-12-17 09:30)
PROC: 0MD Bursae and Ligaments, Extraction (ICD-10-PCS; CPT 29827; principal; 2024-12-19 16:30)
DX: M00.832 Arthritis due to other bacteria, left wrist (principal); R78.81 Bacteremia; D84.821 Immunodeficiency due to drugs; D62 Acute posthemorrhagic anemia; L03.114 Cellulitis of left upper limb; M00.811 Arthritis due to other bacteria, right shoulder; M00.812 Arthritis due to other bacteria, left shoulder; E86.0 Dehydration; M06.9 Rheumatoid arthritis, unspecified; I10 Essential (primary) hypertension; J10.1 Influenza due to other identified influenza virus with other respiratory manifestations; B96.3 Hemophilus influenzae [H. influenzae] as the cause of diseases classified elsewhere; T39.4X5A Adverse effect of antirheumatics, not elsewhere classified, initial encounter; T37.8X5A Adverse effect of other specified systemic anti-infectives and antiparasitics, initial encounter; B96.89 Other specified bacterial agents as the cause of diseases classified elsewhere; Z90.13 Acquired absence of bilateral breasts and nipples; Z79.631 Long term (current) use of antimetabolite agent; Z79.899 Other long term (current) drug therapy; Z85.3 Personal history of malignant neoplasm of breast; Z86.73 Personal history of transient ischemic attack (TIA), and cerebral infarction without residual deficits
CPT/HCPCS: 36415; 73020; 73110; 73200; 73201; 76000; 80048; 80053; 80202; 83735; 84100; 84443; 85025; 85652; 86140; 87015; 87040; 87070; 87075; 87077; 87102; 87116; 87205; 87206; 93005; 94668; 97110; 97161; 97166; 97535; 99284; Q9967; A4216; J0295; J0696; J2405

== ENCOUNTER 2024-12-27 10:02 | Emergency (ER) | payer OTHER, SELFPAY ==
[2024-12-27] VITALS (8 sets, daily range): BP systolic 99–121; BP diastolic 69–85; PULSE 95–115; RESP 14–18; TEMP 36.1–37.2; O2SAT 94–97; BMI 23.1
--- NOTE | 2024-12-27 10:32 | EKG12_ITS ---
Test Reason : GENERAL Blood Pressure : */* mmHG Vent. Rate : 106 BPM Atrial Rate : 106 BPM P-R Int : 114 ms QRS Dur : 76 ms QT Int : 316 ms P-R-T Axes : 20 0 25 degrees QTcB Int : 419 ms Sinus tachycardia Otherwise normal ECG Confirmed by LEWIS HANNAH, BIANCA ([id number]), digital editor TJ CHANCE ([id number]) on 01/02/2025 11:13:46 AM Referred By: Confirmed By: BIANCA SAUCEDO MD
[2024-12-27] MEDS: 0.9% Normal Saline (500mL Bag) 500 ML 999 ML IV (11:11)
--- NOTE | 2024-12-27 11:16 | EX.ED.DYSGE1 ---
HPI History of Present Illness Chief Complaint: Fever Informant: patient Narrative Narrative: 54-year-old female was recently discharged from the hospital about 6 days ago for bacteremia and multifocal septic arthritis including both shoulders. She also had a washout of her left wrist in addition to those 2 joints. She has been on oral antibiotics. Her shoulders been sore, they are not getting worse, she can move them but it is painful to do so. She is doing physical therapy but having difficulty because she is weak all over. She denies any new symptoms, she was at her PCP for routine postadmission hospital follow-up appointment, she has not been experiencing any fevers or temperatures but when they checked her temperature in the office, she had a fever of 101.6. She said usually when she gets a temperature like that she gets chills and feels poorly and she does not today. She has not taken anything for it and here her temperature is 98.2. She has not yet seen infectious disease in follow-up but she is scheduled to do so at some point within the next couple weeks. She currently is on ciprofloxacin and metronidazole for total of 2 weeks. [facility] Medical History BRCA gene positive Breast cancer metastasized to axillary lymph node Breast cancer, right breast Rheumatoid arthritis Home Medications ?Medication ?Instructions ?Recorded ?Last Taken ?Type multivitamin 1 tab PO DAILY general health 11/29/18 Unknown History anastrozole 1 mg tablet 1 mg PO DAILY arthritis 10/13/19 Unknown History ferrous sulfate 325 mg (65 mg 325 mg PO DAILY anemia 10/13/19 Unknown History iron) tablet leflunomide 10 mg tablet (Arava) 20 mg PO DAILY arthritis 12/19/19 Unknown History Held on 12/21/24. Instructions: Resume on 01/09/25. calcium 500 mg (as 1 ea PO BID def. 02/21/20 Unknown History carbonate)-vitamin D3 15 mcg (600 unit) tablet certolizumab pegol 400 mg/2 mL 200 mg subcut Q2W arthritis 12/31/20 Unknown History (200 mg/mL x2) subcutaneous syringe kit (Cimzia) hydroxychloroquine 200 mg tablet 200 mg PO .COMPLEX arthritis 07/09/21 Unknown History Held on 12/21/24. Instructions: Resume on 01/09/25. hydrocortisone 2.5 % topical 1 applic topical BID PRN perineal 12/15/24 Unknown History ointment area leflunomide 20 mg tablet 20 mg PO DAILY arthritis 12/15/24 Unknown History Held on 12/21/24. Instructions: Resume on 01/09/25. acetaminophen 500 mg tablet 1,000 mg (2 x 500 mg) PO Q8 #0 tabs 12/21/24 Unknown Rx amlodipine 10 mg tablet 10 mg PO DAILY #90 tabs 12/21/24 Unknown Rx ciprofloxacin HCl 500 mg tablet 500 mg PO BID 14 days #28 tabs 12/21/24 Unknown Rx (Cipro) lisinopril 10 mg tablet 10 mg PO DAILY #60 tabs 12/21/24 Unknown Rx metronidazole 500 mg tablet 500 mg PO TID 14 days #42 tabs 12/21/24 Unknown Rx oxycodone 5 mg tablet 5 mg PO Q4H PRN PRN Pain Score 12/21/24 Unknown Rx 6-10 5 days #20 tabs Allergy/AdvReac Type Severity Reaction Status Date / Time No Known Allergies Allergy Verified 12/27/24 10:05 Family History Son Diabetes Grandfather Heart disease Mother Cancer possible throat cancer (Went through radiation) Father Cancer lung Surgical History S/P bilateral salpingo-oophorectomy S/P breast reconstruction S/P bilateral mastectomy Status post right breast lumpectomy (~12/2018) History of tonsillectomy Social History household members: none housing: apartment current occupational status: employed Smoking Status: Never smoker alcohol intake: current alcohol intake frequency: holidays/special occasions only substance use type: does not use caffeine: Yes what type of physical activity do you participate in: walking and aerobics frequency: 5-6 times per week seatbelt use: always do you feel safe at home: Yes additional social history: Patient works at [employer], [employer] home ROS ROS ED Constitutional Constitutional ED: Reports as per HPI; Denies chills or fever(s) Eyes Eyes: Denies change in vision or diplopia ENT ENT ED: Denies rhinorrhea or sore throat Cardiovascular Cardiovascular: Denies chest pain or palpitations Respiratory/Chest Respiratory/Chest: Denies cough or dyspnea Gastrointestinal Gastrointestinal: Denies abdominal pain, diarrhea, nausea or vomiting Genitourinary Genitourinary ED: Denies dysuria or hematuria Musculoskeletal Musculoskeletal: Reports as per HPI, arthralgias and other Details: Shoulders are most sore, her left wrist is a little sore, all other joints are good. ; Denies back pain or neck pain Integumentary Denies abscess or rash Neurologic Neurologic: Denies headache(s), paresthesias or weakness Psychiatric Psychiatric: Denies anxiety or suicidal thoughts EXAM Physical Exam Const Vital Signs: 12/27/24 10:03 12/27/24 10:05 12/27/24 10:32 Temperature 98.2 F 98.2 F Temperature Source Oral Oral Pulse Rate 115 H 103 H Respiratory Rate 16 17 Respiratory Effort Respiratory Pattern Blood Pressure 99/85 H 113/73 Blood Pressure Mean 89 86 Pulse Ox 97 96 96 Oxygen Delivery Method Room Air Room Air Room Air 12/27/24 11:05 12/27/24 11:19 12/27/24 12:15 Temperature 98.3 F 99 F Temperature Source Oral Oral Pulse Rate 100 102 H Respiratory Rate 16 18 Respiratory Effort Normal Respiratory Pattern Normal Blood Pressure 113/73 121/75 H Blood Pressure Mean 86 90 Pulse Ox 96 95 Oxygen Delivery Method Room Air Room Air 12/27/24 13:00 Temperature 98 F Temperature Source Oral Pulse Rate 99 Respiratory Rate 14 Respiratory Effort Respiratory Pattern Blood Pressure 119/69 Blood Pressure Mean 83 Pulse Ox 94 Oxygen Delivery Method Room Air Positive well nourished and well developed General Appearance ED: well developed and NAD HEENT Reports moist mucous membranes normocephalic and atraumatic Eyes PERRL and EOMs intact bilaterally Neck full ROM and supple Resp normal respiratory effort and clear to auscultation bilaterally Cardio regular rate, regular rhythm and no murmurs GI non-tender and non-distended Auscultation: normoactive bowel sounds Palpation: soft Back/Spine no CVA tenderness General Back: other FROM Extremity normal to inspection Extremity Narrative: Limited range of motion of both shoulders due to pain seen with her left wrist but she is able to do so, she can abduct both shoulders to about 45 degrees and forward flex to 30 or 45 degrees. All laparoscopic incisions of both shoulders and her left dorsal wrist are benign appearing without signs of infections or dehiscence. Sutures are intact. General Extremety ED: Negative for edema, pulses abnormal or tenderness General Extremity: Negative for edema or pulses abnormal Neuro oriented x3, CN's II-XII intact bilaterally and no sensory deficits noted Sensorium / Orientation: awake and alert Motor Exam: strength 5/5 throughout Psych mental status grossly normal Skin no rashes or lesions noted and no wounds Skin Narrative: All operative shoulder and left wrist incisions are benign see above. MDM MDM MDM Narrative Medical decision making narrative: Labs show mild nonspecific leukocytosis, otherwise fairly unremarkable. There is no leftward shift. While examining the patient she was taking deep breaths for pulmonary exam and she stated that she had some discomfort in the right side of her chest and low back when she did that. Two-view chest x-ray my interpretation shows a right pleural effusion, this is new for her but the left x-ray she had was in 2019, that I have available to review. Because of her resting tachycardia without fever, I sent a D-dimer is very elevated however she had recent surgery which makes this elevation fairly nonspecific. Therefore am sending her for CTA to further evaluate the effusion and to evaluate for pulmonary emboli, which can also cause fevers. I reviewed those images and the report which I agree with. It is negative for pulmonary emboli, he confirms pleural effusion with compressive atelectasis, and radiology also noted there is a possible fluid collection with emphysema in the right axilla. Dr. Evangelista is her surgeon so I spoke with the on-call for the group Dr. Arndt, Dr. Evangelista is not available right now. He looked at the films/CT. He does not think this is anything that needs to be dealt with emergently or surgically, and less clinically the patient seems to be having a septic shoulder again. At this time, my judgment is that she does not. It is unclear if this fluid collection is just a regular postoperative seroma and it has air there because she just had surgery, but she is on appropriate antibiotics for the cultures that grew out haemophilus, and the pleural effusion was minimally symptomatic, and she is not clinically septic, nor do I think it is an empyema. I discussed all this with Dr. Muñoz. We did do blood cultures. He is in agreement that the patient looks good clinically does not have any new symptoms that she can be discharged home to follow-up with him as scheduled in the office which is within the next week or so. Patient is comfortable with that plan. If she has symptoms of worsening pleural effusion or empyema, which we discussed, she is encouraged to return to the ER but I do not think that she needs to be admitted for emergent thoracentesis at this time for this. She is comfortable with that plan. History & Record Review Additional record(s) reviewed:: Prior labs (And chest x-ray) Lab Data Attestation: I reviewed the patient's lab results. Labs: Laboratory Results - last 24 hr 12/27/24 12/27/24 11:05 12:00 WBC 12.6 H RBC 3.21 L Hgb 10.0 L Hct 30.2 L MCV 94.1 MCH 31.2 MCHC 33.1 RDW Std Deviation 45.6 H RDW Coeff of Myla 13.2 Plt Count 554 H MPV 9.0 Immature Gran % (Auto) 0.600 Neut % (Auto) 65.6 Lymph % (Auto) 14.6 L [place] % (Auto) 18.0 H Eos % (Auto) 0.2 Baso % (Auto) 1.0 Absolute Neuts (auto) 8.3 H Absolute Lymphs (auto) 1.84 Nucleated RBC % 0 Diff Path Review May foll Platelet Estimate MOD INC Polychromasia 1+ PT 16.4 H INR 1.3 APTT 35.5 D-Dimer Quant (PE/DVT) 4.26 H* Sodium 136 Potassium 4.2 Chloride 98 Carbon Dioxide 25.1 Anion Gap 13 BUN 14 Creatinine 0.56 L Estim Creat Clear Calc 105.01 Est GFR (MDRD) Non-Af 107 BUN/Creatinine Ratio 24.1 H Glucose 100 H Lactic Acid 1.0 Calcium 9.0 Total Bilirubin 0.71 AST 27 ALT 17 Alkaline Phosphatase 124 H Total Protein 7.1 Albumin 3.2 L Globulin 3.9 Albumin/Globulin Ratio 0.8 L Urine Color Yellow Urine Clarity Clear Urine pH 6.0 Ur Specific [place] 1.010 Urine Protein 30 H Urine Glucose (UA) Normal Urine Ketones Negative Urine Occult Blood 10 H Urine Nitrite Negative Urine Bilirubin Negative Urine Urobilinogen Normal Ur Leukocyte Esterase 25 H Urine RBC 0-5 SEEN Urine WBC 0-5 SEEN Ur Squamous Epith Cells 0-5 SEEN Urine Bacteria 1+ Urine Mucus 1+ Radiography Diagnostic Testing: Clinical Impression(s) from Imaging Studies Chest X-Ray 12/27/24 12:20 IMPRESSION: There is a new small right pleural effusion with a right basilar infiltration and/or atelectasis. Reading Location: [facility] Chest CTA 12/27/24 12:29 IMPRESSION: 1. No pulmonary embolism is identified. Some of the distal pulmonary arteries cannot be evaluated due to suboptimal opacification. 2. Right pleural effusion with compressive atelectasis. Partial consolidation of the right upper lobe. 3. Partially visualized soft tissue emphysema and ill-defined hypodensity of the right axilla. Abscess can not be excluded. Reading Location: [facility] Rhythm Strip Rhythm Strip: Sinus Tach Rate: 106 Ectopy: None EKG Initial EKG: Attestation: I personally reviewed and interpreted this EKG as follows: Interpretation: No Acute Injury Pattern and Sinus Tachycardia Comments: Other than sinus tachycardia, normal EKG. Normal intervals and axis. Management Discussion w/another healthcare provider: [employer] (ortho, ID) Discharge Plan Triage Chief Complaint: Fever ED Provider: Andrae Estrada Dx/Rx/DC Orders Clinical Impression: Pleural effusion on right, Fever, Postoperative seroma Instructions: ED Pleural Effusion Prescriptions: No Action multivitamin tablet 1 tab PO DAILY leflunomide [Arava] 10 mg tablet 20 mg PO DAILY Cimzia 400 mg/2 mL (200 mg/mL x 2) syringe kit 200 mg SC Q2W anastrozole 1 MG tablet 1 mg PO DAILY ferrous sulfate 325 MG tablet 325 mg PO DAILY hydroxychloroquine 200 mg tablet 200 mg PO .COMPLEX Rx Instructions: 200 mg orally; pt takes 200mg at hs calcium carbonate-vitamin D3 1 EACH tablet 1 ea PO BID leflunomide 20 mg tablet 20 mg PO DAILY hydrocortisone 2.5 % ointment 1 applic topical BID PRN (Reason: perineal area) acetaminophen 500 mg Tablet 1,000 mg PO Q8 Qty: 0 0RF lisinopril 10 mg Tablet 10 mg PO DAILY Qty: 60 0RF oxycodone 5 mg Tablet 5 mg PO Q4H PRN PRN (Reason: Pain Score 6-10) 5 Days Qty: 20 0RF ciprofloxacin HCl [Cipro] 500 mg tablet 500 mg PO BID 14 Days Qty: 28 0RF metronidazole 500 mg tablet 500 mg PO TID 14 Days Qty: 42 0RF amlodipine 10 mg tablet 10 mg PO DAILY Qty: 90 0RF Primary Care Provider: Becky Ireland NP Referrals: Travis Muñoz MD [Med Staff - Active Staff] - As soon as possible ([place] office if/as available) Becky Ireland NP, HEALTH CARE COORDINATOR-C [Primary Care Provider] - Print Language: Greenlandic Disposition Disposition: Home, Self Care
[2024-12-27 11:22] LABS: Absolute Lymphocyte Count 1.84 X10^3/uL (0.83-4.51); Absolute Neutrophil Count 8.3 X10^3/uL (2.0-7.7); Basophil# 0.13 X10^3/uL; Eosinophil# 0.02 X10^3/uL; Eosinophils% 0.2 % (0-5); Hematocrit 30.2 % (37-47); Lymphocyte # 1.84 X10^3/ul (0.83-4.51); Lymphocyte % 14.6 % (19-41); Mean Corp Hgb Conc 33.1 g/dL (32-36); Mean Corpuscular Hgb 31.2 pg (27.0-32.0); Mean Corpuscular Volume 94.1 fL (81-99); Monocyte# 2.26 X10^3/uL; NRBC Flagged by Analyzer 0 % (0-5); Neutrophil # 8.25 X10^3/uL (2.7-7.7); Neutrophil % 65.6 % (47-70); POSITIVE DIFFERENTIAL YES; Platelet Count 554 K/mm3 (150-450); RBC Distribution Width CV 13.2 % (11.6-14.6); RBC Distribution Width SD 45.6 fl (35.1-43.9); Red Blood Count 3.21 M/mm3 (4.2-5.4); White Blood Count 12.6 K/mm3 (4.4-11.0)
[2024-12-27 11:25] LABS: Differential Indicated SCAN CRITERIA MET
[2024-12-27 11:26] LABS: International Normalized Ratio 1.3; Prothrombin Time (Protime)PT. 16.4 SECONDS (11.7-14.9)
[2024-12-27 11:31] LABS: Partial Thromboplast Time 35.5 Seconds (24.1-36.2)
[2024-12-27 11:43] LABS: ALB/GLOB Ratio 0.8 RATIO (0.9-2.4); AST(SGOT) 27 U/L (<=31); Alanine Aminotransfer ALT/SGPT 17 U/L (<=34); Albumin, Serum 3.2 g/dL (3.5-5.0); Alkaline Phosphatase 124 U/L (35-104); Anion Gap 13 (5-15); BUN 14 mg/dL (4-19); BUN/Creat Ratio 24.1 RATIO (10-20); Carbon Dioxide 25.1 mmol/L (21.0-32.0); Chloride 98 mmol/L (98-108); Creatinine, Serum 0.56 mg/dL (0.70-1.20); EST Glomerular Filtration Rate 107 (>60); Estimated Creatinine Clearance 105.01 ml/min (50-250); Globulin 3.9 g/dL (2.2-4.2); Glucose 100 mg/dL (70-99); Potassium 4.2 mmol/L (3.3-5.1); Protein, Total 7.1 g/dL (5.9-8.4); Sodium Level 136 mmol/L (133-145); Total Bilirubin 0.71 mg/dL (0.00-1.30)
[2024-12-27 11:55] LABS: D-Dimer Quantitative (DVT/PE) 4.26 FEU/ug/m (0.27-0.49)
[2024-12-27 12:03] LABS: Pathologist Review May foll; Platelet Estimate MOD INC (ADEQ); Polychromasia 1+
--- NOTE | 2024-12-27 12:20 | RAD_ITS ---
PROCEDURE: CHEST PA AND LATERAL REASON FOR EXAM: FEVER TECHNIQUE: Frontal and lateral views of the chest. COMPARISON: Comparison is made with prior study dated February 02, 2019. FINDINGS: EKG electrodes are seen. Surgical clips are seen in the right axilla. Surgical clips are seen overlying the left breast. There is a new small right pleural effusion with right basilar atelectasis and/or infiltrate. RAD/Chest PA and Lateral IMPRESSION: There is a new small right pleural effusion with a right basilar infiltration a nd/or atelectasis. Reading Location: [place] [id number]
--- NOTE | 2024-12-27 12:29 | CT_ITS ---
EXAM: CT Angiography Chest Without and With Intravenous Contrast CLINICAL INDICATION: CP RIGHT, PLEURAL EFFUSION, ELEVATED D-DIMER TECHNIQUE: Axial computed tomographic angiography images of the chest without and with intravenous contrast. This CT exam was performed using one or more of the following dose reduction techniques: automated exposure control, adjustment of the mA and/or kV according to patient size, and/or use of iterative reconstruction technique. MIP reconstructed images were created and reviewed. COMPARISON: No relevant prior studies available. FINDINGS: LIMITATIONS: Suboptimal opacification of the pulmonary arteries. PULMONARY ARTERIES: No pulmonary embolism is identified. Some of the distal pulmonary arteries cannot be evaluated due to suboptimal opacification. AORTA: Scattered calcified atherosclerotic disease of aorta. No thoracic aortic aneurysm. LUNGS AND PLEURAL SPACES: Right pleural effusion with compressive atelectasis. Partial consolidation of the right upper lobe. No pneumothorax. HEART: Unremarkable. No cardiomegaly. No significant pericardial effusion. No evidence of RV dysfunction. BONES/JOINTS: No acute fracture. No dislocation. SOFT TISSUES: Partially visualized soft tissue emphysema and ill-defined hypodensity of the right axilla. Abscess can not be excluded. LYMPH NODES: Unremarkable. No enlarged lymph nodes. CT/CTA Chest W/WO Contrast IMPRESSION: 1. No pulmonary embolism is identified. Some of the distal pulmonary arteries cannot be evaluated due to suboptimal opacification. 2. Right pleural effusion with compressive atelectasis. Partial consolidation of the right upper lobe. 3. Partially visualized soft tissue emphysema and ill-defined hypodensity of t he right axilla. Abscess can not be excluded. Reading Location: [facility]
[2024-12-27 12:31] LABS: Color, Urine Yellow (Yellow); Glucose, Dipstick Normal (Normal); Ketone-Dipstick Negative (Negative); Leukocyte Esterase-Dipstick 25 /ul (Negative); Nitrite-Dipstick Negative (Negative); Occult Blood-Urine 10 /ul (Negative); Protein-Dipstick 30 mg/dl (Negative); Urine Bilirubin Dipstick Negative (Negative); Urine Clarity Clear (Clear); Urine Urobilinogen Normal (Normal)
[2024-12-27 13:22] LABS: Bacteria 1+ /hpf (None Seen); Mucous, Urine 1+ /hpf (<or=2+); Red Blood Cells-Urine 0-5 SEEN /hpf (0-5); Squamous Epithelial Cells - UA 0-5 SEEN /hpf (5-10); White Blood Cells 0-5 SEEN /hpf (0-5)
--- NOTE | 2024-12-27 14:03 | CM.ED ---
Social work Patient stated not knowing who is listed as patient's HCPOA. Patient stated intent to work with patient's sister in law this evening to go through medical folders and discover this information. Patient denied further needs at this time. Vilma Duek, GROCERY BUYER, SHOT BAGGER
== END 2024-12-27 14:44 | disposition home or self-care (01) ==
PROVIDERS: Emergency Provider Emergency Medicine; PCP Registered Nurse; Visit Provider Emergency Medicine
DX: R50.9 Fever, unspecified (principal); J90 Pleural effusion, not elsewhere classified; M96.842 Postprocedural seroma of a musculoskeletal structure following a musculoskeletal system procedure
CPT/HCPCS: 71046; 71275; 80053; 81001; 83605; 85025; 85379; 85610; 85730; 87040; 87086; 93005; 99284; Q9967; A4216

== ENCOUNTER 2025-01-13 10:48 | Emergency (ER) | payer OTHER, SELFPAY ==
[2025-01-13 10:49] VITALS: BP 131/86; PULSE 112; PULSE 132; RESP 22; TEMP 36.8; O2SAT 98; BMI 21.6
--- NOTE | 2025-01-13 11:12 | ED.RN ---
PT RECENTLY HAD PROCEDURES FOR WHAT PT STATES TO BE SEPSIS AND IT GOES TO HER JOINTS AND BONE. SHE HAS HAD 4 SURGERIES IN A SHORT AMOUNT OF TIME. SHE HAS BEEN WEAK AND FEELING FATIGUE. SHE STATES SHE HAS FELT DIZZY SINCE THIS MORNING. APPETITE AND FLUIDS HAVE BEEN REDUCED BUT SHE STATES SHE HAS BEEN TRYING HARD TO GT 64 OZ OF FLUIDS IN.
--- NOTE | 2025-01-13 11:17 | ED.RN ---
BASED ON PTS COMPLAINT OF WEAKNESS AND DIZZINESS THIS PERFORMED AN NIH SCALE WITH A SCORE OF 0
--- NOTE | 2025-01-13 11:22 | EKG12_ITS ---
Test Reason : TACHYCARDIA Blood Pressure : */* mmHG Vent. Rate : 113 BPM Atrial Rate : 113 BPM P-R Int : 114 ms QRS Dur : 70 ms QT Int : 296 ms P-R-T Axes : 56 -4 43 degrees QTcB Int : 406 ms Sinus tachycardia Otherwise normal ECG Confirmed by KAMILA HANNAH, KATHY ([id number]), brands editor JREI ELLISON ([id number]) on 01/16/2025 9:16:26 AM Referred By: Rodrigue Arguello Confirmed By: KATHY TREVIÑO MD
--- NOTE | 2025-01-13 11:24 | EDS_ITS ---
HPI History of Present Illness Chief Complaint: Dizziness Narrative Narrative: Patient is a 54-year-old female [facility] Medical History BRCA gene positive Breast cancer metastasized to axillary lymph node Breast cancer, right breast Rheumatoid arthritis Home Medications ?Medication ?Instructions ?Recorded ?Last Taken ?Type multivitamin 1 tab PO DAILY general healt h 11/29/18 Unknown History anastrozole 1 mg tablet 1 mg PO DAILY arthritis 09/19 04/06 Unknown History ferrous sulfate 325 mg (65 mg 325 mg PO DAILY anemia 1 12/14/18 Unknown History iron) tablet leflunomide 10 mg tablet (Arava) 20 mg PO DAILY arthri tis 12/19/19 Unknown History Held on 12/21/24. Instructions: Resume on 01/09/25. calcium 500 mg (as 1 ea PO BID def. 02/21/20 Un known History carbonate)-vitamin D3 15 mcg (600 unit) tablet certolizumab pegol 400 mg/2 mL 200 mg subcut Q2W arthr itis 12/31/20 Unknown History (200 mg/mL x2) subcutaneous syringe kit (Cimzia) hydroxychloroquine 200 mg tablet 200 mg PO .COMPLEX ar thritis 07/09/21 Unknown History Held on 12/21/24. Instructions: Resume on 01/09/25. hydrocortisone 2.5 % topical 1 applic topical BID PRN perineal 12/15/24 Unknown History ointment area leflunomide 20 mg tablet 20 mg PO DAILY arthritis Unknown History Held on 12/21/24. Instructions: Resume on 01/09/25. acetaminophen 500 mg tablet 1,000 mg (2 x 500 mg) PO Q 8 #0 tabs 12/21/24 Unknown Rx amlodipine 10 mg tablet 10 mg PO DAILY #90 tabs 03/12 Unknown Rx ciprofloxacin HCl 500 mg tablet 500 mg PO BID 14 days #28 tabs 12/21/24 Unknown Rx (Cipro) lisinopril 10 mg tablet 10 mg PO DAILY #60 tabs 03/12 Unknown Rx metronidazole 500 mg tablet 500 mg PO TID 14 days #42 tabs 12/21/24 Unknown Rx oxycodone 5 mg tablet 5 mg PO Q4H PRN PRN Pain Sco re 12/21/24 Unknown Rx 6-10 5 days #20 tabs Allergy/AdvReac Type Severity Reaction Status Date / Time No Known Allergies Allergy Verified 01/13/25 11:11 Family History Son Diabetes Grandfather Heart disease Mother Cancer possible throat cancer (Went through radiation) Father Cancer lung Surgical History S/P bilateral salpingo-oophorectomy S/P breast reconstruction S/P bilateral mastectomy Status post right breast lumpectomy (~12/2018) History of tonsillectomy Social History household members: none housing: apartment current occupational status: employed Smoking Status: Never smoker alcohol intake: current alcohol intake frequency: holidays/special occasions only substance use type: does not use caffeine: Yes what type of physical activity do you participate in: walking and aerobics frequency: 5-6 times per week seatbelt use: always do you feel safe at home: Yes additional social history: Patient works at [employer], [employer] ROS ROS ED ROS Narrative REVIEW OF SYSTEMS: Unless otherwise stated in this report the patient's positive and negative responses for review of systems for constitutional, eyes, ENT, cardiovascular, respiratory, gastrointestinal, neurological, , musculoskeletal, and integument systems and related systems to the presenting problem are either stated in the history of present illness or were not pertinent or were negative for the symptoms and/or complaints related to the presenting medical problem. EXAM Physical Exam Narrative Exam Narrative: Vital signs reviewed and patient is not hypoxic. General: The patient appears well and in no apparent distress. Patient is resting comfortably on cart. Not toxic, lethargic, or listless. Skin: Warm, dry, no pallor noted. There is no rash noted. Head: Normocephalic, atraumatic Eye: Normal conjunctiva, no drainage, EOMI. PERRL. Ears, Nose, Mouth, and Throat: oral mucosa is moist. Nares patent. Mouth without vesicles. Cardiovascular: Regular Rate and Rhythm, no murmurs, gallops, or rubs Respiratory: Patient is in no distress, no accessory muscle use, lungs are clear to auscultation, no wheezing, rales or rhonchi Back: non-tender, no CVA tenderness bilaterally to percussion. NO CTLS midline or paraspinal tenderness to palpation. GI: Soft, no tenderness to palpation, no masses appreciated. No rebound, guarding, or rigidity noted. Musculoskeletal: The patient has full range of motion of all extremities and joints with no difficulty. Patient has no motor, no sensory deficits. Neurological: A&O x4, normal speech, no focal neurological deficits. Psychiatric: Cooperative Const Vital Signs: 01/13/25 10:49 01/13/25 10:49 Temperature 98.3 F Temperature Source Oral Pulse Rate 132 H 112 H Respiratory Rate 22 H 22 H Blood Pressure 131/86 H Blood Pressure Mean 101 Pulse Ox 98 98 Oxygen Delivery Method Room Air Room Air MDM MDM MDM Narrative Medical decision making narrative: Patient seen and examined: Differential diagnosis includes but is not limited to: Relevant laboratory interpretation: Radiological studies: Reevaluation: Social barriers to healthcare: There are no food insecurities, there is no issue with transportation, there are no insurance barriers Disposition: Diagnosis: Discharge Plan Triage Chief Complaint: Dizziness ED Provider: Rodrigue Arguello Dx/Rx/DC Orders Prescriptions: No Action multivitamin tablet 1 tab PO DAILY leflunomide [Arava] 10 mg tablet 20 mg PO DAILY Cimzia 400 mg/2 mL (200 mg/mL x 2) syringe kit 200 mg SC Q2W anastrozole 1 MG tablet 1 mg PO DAILY ferrous sulfate 325 MG tablet 325 mg PO DAILY hydroxychloroquine 200 mg tablet 200 mg PO .COMPLEX Rx Instructions: 200 mg orally; pt takes 200mg at hs calcium carbonate-vitamin D3 1 EACH tablet 1 ea PO BID leflunomide 20 mg tablet 20 mg PO DAILY hydrocortisone 2.5 % ointment 1 applic topical BID PRN (Reason: perineal area) acetaminophen 500 mg Tablet 1,000 mg PO Q8 Qty: 0 0RF lisinopril 10 mg Tablet 10 mg PO DAILY Qty: 60 0RF oxycodone 5 mg Tablet 5 mg PO Q4H PRN PRN (Reason: Pain Score 6-10) 5 Days Qty: 20 0RF ciprofloxacin HCl [Cipro] 500 mg tablet 500 mg PO BID 14 Days Qty: 28 0RF metronidazole 500 mg tablet 500 mg PO TID 14 Days Qty: 42 0RF amlodipine 10 mg tablet 10 mg PO DAILY Qty: 90 0RF Primary Care Provider: Becky Ireland NP Referrals: Bekcy Ireland NP, STEAM BOX OPERATOR-C [Primary Care Provider] - Print Language: Slovenian
--- NOTE | 2025-01-13 11:24 | EX.ED.DYSGE1 ---
HPI History of Present Illness Chief Complaint: Dizziness Narrative Narrative: Patient is a 54-year-old female who is presenting to the ER with chief complaint of fatigue, weakness, concern for low iron levels. Patient was recently diagnosed with influenza A, patient has a history of rheumatoid arthritis. Patient developed septic joint from left wrist and bilateral shoulders. Patient was admitted to the hospital for approximately thyroid December 21. Patient had surgery to left wrist and bilateral shoulders, incisions were made, joints were draining, and patient was in the hospital for IV antibiotics. Patient was discharged after approximately in the hospital for 7 days. Patient has a history of low iron levels. Patient has increased her iron levels recently. Patient was brought in by a friend secondary to generalized weakness, fatigue, normal shortness of breath. Patient stated she has small amount of fluid in the right lower lung with pleural effusion, she has no fever, no cough, she has no fever, no cough, no chills. No bowel or bladder changes. No acute complaints. [facility] Medical History BRCA gene positive Breast cancer metastasized to axillary lymph node Breast cancer, right breast Rheumatoid arthritis Home Medications ?Medication ?Instructions ?Recorded ?Last Taken ?Type multivitamin 1 tab PO DAILY general health 11/29/18 01/12/25 History anastrozole 1 mg tablet 1 mg PO DAILY arthritis 10/13/19 01/12/25 History ferrous sulfate 325 mg (65 mg 325 mg PO BID anemia 10/13/19 01/13/25 History iron) tablet calcium 500 mg (as 1 ea PO BID def. 02/21/20 01/12/25 History carbonate)-vitamin D3 15 mcg (600 unit) tablet certolizumab pegol 400 mg/2 mL 200 mg subcut Q2W arthritis 12/31/20 01/05/25 History (200 mg/mL x2) subcutaneous syringe kit (Cimzia) hydroxychloroquine 200 mg tablet 200 mg PO QHS arthritis 07/09/21 01/12/25 History hydrocortisone 2.5 % topical 1 applic topical BID PRN perineal 12/15/24 Unknown History ointment area leflunomide 20 mg tablet 20 mg PO DAILY arthritis 12/15/24 01/12/25 History lisinopril 10 mg tablet 10 mg PO DAILY #60 tabs 12/21/24 01/13/25 Rx Lactobacillus acidophilus 1 tab PO DAILY 01/13/25 01/12/25 History acetaminophen 500 mg tablet 1,000 mg PO Q8H PRN pain 01/13/25 Unknown History Allergy/AdvReac Type Severity Reaction Status Date / Time No Known Allergies Allergy Verified 01/13/25 11:11 Family History Son Diabetes Grandfather Heart disease Mother Cancer possible throat cancer (Went through radiation) Father Cancer lung Surgical History S/P bilateral salpingo-oophorectomy S/P breast reconstruction S/P bilateral mastectomy Status post right breast lumpectomy (~12/2018) History of tonsillectomy Social History household members: none housing: apartment current occupational status: employed Smoking Status: Never smoker alcohol intake: current alcohol intake frequency: holidays/special occasions only substance use type: does not use caffeine: Yes what type of physical activity do you participate in: walking and aerobics frequency: 5-6 times per week seatbelt use: always do you feel safe at home: Yes additional social history: Patient works at [employer], [place] home ROS ROS ED ROS Narrative REVIEW OF SYSTEMS: Unless otherwise stated in this report the patient's positive and negative responses for review of systems for constitutional, eyes, ENT, cardiovascular, respiratory, gastrointestinal, neurological, , musculoskeletal, and integument systems and related systems to the presenting problem are either stated in the history of present illness or were not pertinent or were negative for the symptoms and/or complaints related to the presenting medical problem. EXAM Physical Exam Narrative Exam Narrative: Vital signs reviewed and patient is not hypoxic. General: The patient appears well and in no apparent distress. Patient is resting comfortably on cart. Not toxic, lethargic, or listless. Skin: Warm, dry, no pallor noted. There is no rash noted. Head: Normocephalic, atraumatic Eye: Minimal pale conjunctiva, no drainage, EOMI. PERRL. Ears, Nose, Mouth, and Throat: oral mucosa is moist. Nares patent. Mouth without vesicles. Cardiovascular: Regular Rate and Rhythm, no murmurs, gallops, or rubs Respiratory: Patient is in no distress, no accessory muscle use, lungs are clear to auscultation, no wheezing, rales or rhonchi slight decreased breath sounds on the, right compared to the left. That is where she has had her small pleural effusion to the right lower base. Back: non-tender, no CVA tenderness bilaterally to percussion. NO CTLS midline or paraspinal tenderness to palpation. GI: Soft, no tenderness to palpation, no masses appreciated. No rebound, guarding, or rigidity noted. Musculoskeletal: The patient has full range of motion of all extremities and joints with no difficulty. Patient has no motor, no sensory deficits. Neurological: A&O x4, normal speech, no focal neurological deficits. Psychiatric: Cooperative Const Vital Signs: 01/13/25 10:49 01/13/25 10:49 01/13/25 12:45 Temperature 98.3 F Temperature Source Oral Pulse Rate 132 H 112 H 110 H Respiratory Rate 22 H 22 H 17 Blood Pressure 131/86 H Blood Pressure Mean 101 Pulse Ox 98 98 97 Oxygen Delivery Method Room Air Room Air 01/13/25 13:00 01/13/25 13:04 Temperature Temperature Source Pulse Rate 106 H Respiratory Rate 15 Blood Pressure 126/75 H Blood Pressure Mean 92 Pulse Ox 97 Oxygen Delivery Method Room Air MDM MDM MDM Narrative Medical decision making narrative: Patient seen and examined: Patient was slightly pale, mild pale conjunctive up. No paleness noted underneath her tongue. Patient tachycardic in the 120s when she initially arrived. Patient have cardiac workup. Education was done on checking iron levels, she had her iron levels and lab test done at the [facility] as an outpatient before she came to the ER today. Patient had IV, IV fluids, cardiac assessment. Differential diagnosis includes but is not limited to: Dehydration, electrolyte abnormality, iron deficiency anemia, ACS, UTI, sepsis, anemia requiring transfusion Relevant laboratory interpretation: Patient has a white blood cell count of 13, H&H is 8.5/26. Platelets 466. CO2 19, anion gap 16, Radiological studies: Chest x-ray shows right basilar atelectasis versus pneumonia. Patient has no rhonchi. No fever. No cough. Patient did have small right pleural effusion in the right lower lobe last few weeks. She has been using her incentive spirometer at home, no treatment for pneumonia at this time Reevaluation: Patient was given 1 L of IV fluid. Patient heart rate did improve down into the 100s, 1 teens. Patient was ambulated, her heart rate went up in the 120s to 130s. However, patient stated that she felt much better when she ambulated after 1 L of IV fluid. Patient wants to go home. She does not want to be admitted to the hospital. Social barriers to healthcare: There are no food insecurities, there is no issue with transportation, there are no insurance barriers Disposition: Lengthy discussion on hemoglobin of 8.5. Patient's hemoglobin level 3 weeks ago was in the low tens. Patient has no black stool. No hematemesis, no melena, no hematochezia. 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 Patient will follow-up as an outpatient, repeat EGD and colonoscopy as needed. No acute indication for transfusion at this time. Patient felt better after 2 L IV fluid, no questions discharge Diagnosis: Anemia, weakness, fatigue, dehydration Lab Data Labs: Laboratory Results - last 24 hr 01/13/25 01/13/25 11:21 12:21 WBC 13.5 H RBC 2.85 L Hgb 8.5 L Hct 26.2 L MCV 91.9 MCH 29.8 MCHC 32.4 RDW Std Deviation 45.5 H RDW Coeff of Myla 13.6 Plt Count 466 H MPV 9.1 Immature Gran % (Auto) 0.500 Neut % (Auto) 65.0 Lymph % (Auto) 20.2 Clay % (Auto) 13.2 H Eos % (Auto) 0.4 Baso % (Auto) 0.7 Absolute Neuts (auto) 8.8 H Absolute Lymphs (auto) 2.73 Nucleated RBC % 0 Platelet Estimate SLT INC Polychromasia 1+ PT 15.2 H INR 1.2 APTT 31.9 Sodium 137 Potassium 4.0 Chloride 102 Carbon Dioxide 19.4 L Anion Gap 16 H BUN 10 Creatinine 0.52 L Estim Creat Clear Calc 113.09 Est GFR (MDRD) Non-Af 109 BUN/Creatinine Ratio 20.1 H Glucose 97 Calcium 9.2 Troponin T High Sens 8 POC Glucose 108 H Radiography Diagnostic Testing: Clinical Impression(s) from Imaging Studies Chest X-Ray 01/13/25 12:40 IMPRESSION: Right basilar atelectasis or pneumonia. Reading Location: [facility] EKG Initial EKG: Attestation: I personally reviewed and interpreted this EKG as follows: (EKG interpretation. Sinus tachycardia at 113. Normal axis deviation. No acute ST elevation, no acute ectopy. QTc of 406.) Discharge Plan Triage Chief Complaint: Dizziness ED Provider: Rodrigue Arguello Dx/Rx/DC Orders Clinical Impression: Fatigue, Dehydration, Weakness, Anemia Instructions: GI Bleeding Causes and Tests, Anemia, ED Atelectasis, ED Dehydration (Adult) Prescriptions: No Action multivitamin tablet 1 tab PO DAILY Cimzia 400 mg/2 mL (200 mg/mL x 2) syringe kit 200 mg SC Q2W anastrozole 1 MG tablet 1 mg PO DAILY ferrous sulfate 325 MG tablet 325 mg PO BID hydroxychloroquine 200 mg tablet 200 mg PO QHS calcium carbonate-vitamin D3 1 EACH tablet 1 ea PO BID Lactobacillus acidophilus [Acidophilus] 1 tab PO DAILY acetaminophen 500 mg Tablet 1,000 mg PO Q8H PRN (Reason: pain) leflunomide 20 mg tablet 20 mg PO DAILY hydrocortisone 2.5 % ointment 1 applic topical BID PRN (Reason: perineal area) lisinopril 10 mg Tablet 10 mg PO DAILY Qty: 60 0RF Primary Care Provider: Becky Ireland NP Referrals: Becky Ireland NP, [facility] [Primary Care Provider] - Activity Restrictions/Additional Instructions: Increase fluids at home, Gatorade, Powerade, water. You are given 2 L of IV fluid for hydration. Your hemoglobin level was 8.5. 3 weeks ago, your hemoglobin level is 10. Follow-up with your GI office for further evaluation, and possible repeat endoscopy and colonoscopy if needed. Education was given to you for GI bleeding just for educational purposes only. Follow-up with GI physician for further testing as discussed. Print Language: Romansh Disposition Disposition: Home, Self Care
[2025-01-13 11:40] LABS: Bedside Glucose 108 mg/dL (74-106)
[2025-01-13] MEDS: 0.9% Normal Saline (1000mL) 1,000 ML 999 ML IV ×2 (12:16→13:37)
[2025-01-13 12:37] LABS: Absolute Lymphocyte Count 2.73 X10^3/uL (0.83-4.51); Absolute Neutrophil Count 8.8 X10^3/uL (2.0-7.7); Basophil% 0.7 % (0-1); Eosinophil# 0.05 X10^3/uL; Eosinophils% 0.4 % (0-5); Hematocrit 26.2 % (37-47); Hemoglobin 8.5 g/dL (12.0-15.0); Lymphocyte # 2.73 X10^3/ul (0.83-4.51); Lymphocyte % 20.2 % (19-41); Mean Corp Hgb Conc 32.4 g/dL (32-36); Mean Corpuscular Hgb 29.8 pg (27.0-32.0); Mean Corpuscular Volume 91.9 fL (81-99); Mean Platelet Vol. 9.1 fl (6.2-12.0); Monocyte# 1.79 X10^3/uL; Monocyte% 13.2 % (0-10); NRBC Flagged by Analyzer 0 % (0-5); Neutrophil # 8.78 X10^3/uL (2.7-7.7); POSITIVE DIFFERENTIAL YES; Platelet Count 466 K/mm3 (150-450); RBC Distribution Width CV 13.6 % (11.6-14.6); RBC Distribution Width SD 45.5 fl (35.1-43.9); Red Blood Count 2.85 M/mm3 (4.2-5.4); White Blood Count 13.5 K/mm3 (4.4-11.0)
--- NOTE | 2025-01-13 12:40 | RAD_ITS ---
EXAM: XR Chest, 1 View CLINICAL INDICATION: CHEST PAIN TECHNIQUE: Frontal view of the chest. COMPARISON: No relevant prior studies available. FINDINGS: LUNGS AND PLEURAL SPACES: Right basilar atelectasis or pneumonia. No pneumothorax. HEART: Unremarkable. No cardiomegaly. MEDIASTINUM: Unremarkable. Normal mediastinal contour. BONES/JOINTS: Unremarkable. No acute fracture. RAD/Chest 1 View (Portable) IMPRESSION: Right basilar atelectasis or pneumonia. Reading Location: [facility]
[2025-01-13 12:45] VITALS: PULSE 110; RESP 17; O2SAT 97
[2025-01-13 12:47] LABS: International Normalized Ratio 1.2; Prothrombin Time (Protime)PT. 15.2 SECONDS (11.7-14.9)
[2025-01-13 12:48] LABS: Partial Thromboplast Time 31.9 Seconds (24.1-36.2)
[2025-01-13 12:52] LABS: Differential Indicated SCAN CRITERIA MET
[2025-01-13] MEDS: Acetaminophen 325 MG Tablet 650 MG PO (12:59)
[2025-01-13 13:00] VITALS: BP 126/75; PULSE 106; RESP 15; O2SAT 97
[2025-01-13 13:17] LABS: Anion Gap 16 (5-15); BUN 10 mg/dL (4-19); BUN/Creat Ratio 20.1 RATIO (10-20); Calcium,Total 9.2 mg/dL (7.6-11.0); Carbon Dioxide 19.4 mmol/L (21.0-32.0); Chloride 102 mmol/L (98-108); Creatinine, Serum 0.52 mg/dL (0.70-1.20); EST Glomerular Filtration Rate 109 (>60); Estimated Creatinine Clearance 113.09 ml/min (50-250); Glucose 97 mg/dL (70-99); Sodium Level 137 mmol/L (133-145); Troponin T High Sensitivity 8 ng/L (<=14)
[2025-01-13 13:51] LABS: Platelet Estimate SLT INC (ADEQ); Polychromasia 1+
[2025-01-13 14:00] VITALS: BP 120/77; PULSE 104; RESP 20; O2SAT 96
[2025-01-13 15:00] VITALS: BP 130/75; PULSE 107; RESP 18; O2SAT 96
== END 2025-01-13 15:19 | disposition home or self-care (01) ==
PROVIDERS: Emergency Provider Emergency Medicine; PCP Registered Nurse; Referring Provider Emergency Medicine; Visit Provider Emergency Medicine
DX: E86.0 Dehydration (principal); D64.9 Anemia, unspecified
CPT/HCPCS: 71045; 80048; 82962; 84484; 85025; 85610; 85730; 86850; 86900; 86901; 93005; 96360; 96361; 99283; A4216

== ENCOUNTER 2025-02-13 10:37 | Day surgery (SDC) | payer OTHER, SELFPAY ==
--- NOTE | 2025-02-09 15:20 | PAT.ANESEVAL ---
Pre-Assessment Diagnosis/Proposed Procedure Planned Operative Procedure(s): COLONOSCOPY AND EGD Anesthesia History Anesthesia History - tread cutter: Anesthesia History - tread cutter Hx Hospitalization Yes: 11/2024-INFLUENZA A 02/09/25 11:04 Any Problems With Anesthesia No 02/09/25 11:04 Cholinesterase deficiency No 02/09/25 11:04 You/Your Family Experience No 02/09/25 11:04 fever (hyperthermia) with Relationship Recent Exposure to Contagious No 12/19/24 06:07 Disease Does patient have nerve No 02/09/25 11:04 stimulator Patient instructed to have device shut off --Does patient have Pacemaker or ICD? When Was Last Pacemaker Check QUESTION #4 FULL TEXT: You/Your Family Experience fever (hyperthermia) with Anesthesia Last Oral Intake Last Oral intake: Last Oral Intake NPO since Meds taken in AM with sips of water? Meds patient instructed to take am of surgery PONV PONV - tread cutter: PONV - tread cutter Female Yes 02/09/25 11:04 HX of Motion Sickness No 02/09/25 11:04 HX of N/V After Surgery No 02/09/25 11:04 Non-Smoker Yes 02/09/25 11:04 Duration of Surgery greater No 02/09/25 11:04 than 60 minutes Number of Risk Factors 2 02/09/25 11:04 PONV Score Moderate Risk 02/09/25 11:04 Height & Weight Height & Weight: Anesthesia: Height & Weight Height 5 ft 6 in 01/13/25 10:49 Respiratory Assessment Respiratory Assessment - tread cutter: Respiratory Tract Infection Hx - tread cutter Hx Respiratory Tract Infection No 02/09/25 11:04 STOP Sleep Apnea STOP Sleep Apnea - tread cutter: STOP Sleep Apnea - tread cutter Hx Hypertension No 02/09/25 11:04 Hx Sleep Apnea No 02/09/25 11:04 CPAP BIPAP Do you snore loudly (louder No 02/09/25 11:04 than talking or can be heard Do you often feel tired/ No 02/09/25 11:04 fatigued/ sleepy during daytime? Has anyone observed you stop No 02/09/25 11:04 breathing during sleep? STOP Results Negative 02/09/25 11:04 QUESTION #5 FULL TEXT : Do you snore loudly (louder than talking or can be heard through closed doors)? 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 Specify any problems Hx of Preganancy in last 3 No 02/09/25 11:04 Months Nurse Filling Out Transfusion [place] 02/09/25 11:04 & Questions: Date: 02/09/25 02/09/25 11:04 Time: 11:14 02/09/25 11:04 Patient unable to answer at this time (ie. confused, unrespo /Reproduction History /Reproductive History - tread cutter: /Reproductive Hx- tread cutter Hx Now No 02/09/25 11:04 Gestational Age (in weeks): EDC: Hx Hx Para Hx Section SAB No 02/09/25 11:04 [facility] Medical History (Updated 02/09/25 @ 11:25 by Marcelina Shirley) History of echocardiogram Wears glasses Post-menopausal Cancer Low iron History of GI bleed Non-smoker BRCA gene positive Breast cancer metastasized to axillary lymph node Breast cancer, right breast Rheumatoid arthritis Home Medications ?Medication ?Instructions ?Recorded ?Last Taken ?Type multivitamin 1 tab PO DAILY general health 11/29/18 01/12/25 History anastrozole 1 mg tablet 1 mg PO DAILY arthritis 10/13/19 01/12/25 History ferrous sulfate 325 mg (65 mg 325 mg PO MOWEFR anemia 10/13/19 01/13/25 History iron) tablet calcium 500 mg (as 1 ea PO BID def. 02/21/20 01/12/25 History carbonate)-vitamin D3 15 mcg (600 unit) tablet certolizumab pegol 400 mg/2 mL 200 mg subcut Q2W arthritis 12/31/20 01/05/25 History (200 mg/mL x2) subcutaneous syringe kit (Cimzia) hydroxychloroquine 200 mg tablet 200 mg PO QHS arthritis 07/09/21 01/12/25 History leflunomide 20 mg tablet 20 mg PO DAILY arthritis 12/15/24 01/12/25 History acetaminophen 500 mg tablet 1,000 mg PO Q8H PRN pain 01/13/25 Unknown History ascorbic acid (vitamin C) 500 mg 500 mg PO MOWEFR 02/09/25 Unknown History tablet (Vitamin C) Allergy/AdvReac Type Severity Reaction Status Date / Time No Known Allergies Allergy Verified 02/09/25 10:59 Family History Son Diabetes Grandfather Heart disease Mother Cancer possible throat cancer (Went through radiation) Father Cancer lung Surgical History (Updated 02/09/25 @ 11:14 by Marcelina Shirley) History of thoracentesis History of incision and drainage S/P bilateral salpingo-oophorectomy S/P breast reconstruction S/P bilateral mastectomy Status post right breast lumpectomy (~12/2018) History of tonsillectomy Social History household members: none housing: apartment current occupational status: employed Smoking Status: Never smoker alcohol intake: current alcohol intake frequency: holidays/special occasions only substance use type: does not use caffeine: Yes what type of physical activity do you participate in: walking and aerobics frequency: 5-6 times per week seatbelt use: always do you feel safe at home: Yes additional social history: Patient works at [employer] home Audit: Pertinent Findings Pertinent Findings EKG Perinent findings: January 13, 2025. Sinus tachycardia at 113 bpm. Otherwise normal EKG. Echo (EF%) pertinent findings: January 31, 2025. Ejection fraction is 57%. No aortic stenosis. Recommendation Anesthesia Recommendation Anesthesia recommendation: OPTIMIZED for anesthesia
[2025-02-13] VITALS (7 sets, daily range): BP systolic 98–118; BP diastolic 69–86; PULSE 85–117; RESP 16; TEMP 36.6–36.9; O2SAT 96–98; BMI 21.2
--- NOTE | 2025-02-13 10:53 | PRE.ANES_ITS ---
ASA Classification* ASA Classification ASA Classification: 2 Assessment & Plan Anesthesia* Anesthesia Assessment Anesthesia Assessment: Discussed sedation and/or anesthesia options, risks, benefits, and alternatives with patient/parents/legal guardian/POA. Questions invited. The patient/parents/legal guardian/POA seems to understand and agrees to proceed with anesthesia plan. Reviewed the physical assessment, medical history, allergy history and patient home medications list prior to surgery/procedure/anesthetic and documented any changes. Performed airway and anesthesia risk assessments. Anesthesia Type Anesthesia Type: MAC Anesthesia Focused Assessment* Airway Assessment Mouth opens: >3 cm Mallampati Score: II Focused Labs Anesthesia Preop lab: CBC WBC 13.5 K/mm3 (4.4-11.0) H 01/13/25 12:21 5 RBC 2.85 M/mm3 (4.2-5.4) L 01/13/25 12:21 01/13/25 Hgb 8.5 g/dL (12.0-15.0) L 01/13/25 12:21 01/13/25 Hct 26.2 % (37-47) L 01/13/25 12:21 01/13/25 Plt Count 466 K/mm3 (150-450) H 01/13/25 12:21 01/13/25 CHEMISTRY Potassium 4.0 mmol/L (3.3-5.1) 01/13/25 12:21 01/13/25 Sodium 137 mmol/L (133-145) 01/13/25 12:21 01/13/25 Magnesium 1.8 mg/dL (1.5-2.2) 12/15/24 20:13 12/15/24 Phosphorus 2.4 mg/dL (2.7-4.5) L 12/17/24 05:44 12/17/24 BUN 10 mg/dL (4-19) 01/13/25 12:21 01/13/25 Creatinine 0.52 mg/dL (0.70-1.20) L 01/13/25 12:21 Glucose 97 mg/dL (70-99) 01/13/25 12:21 01/13/25 POC Glucose 108 mg/dL (74-106) H 01/13/25 11:21 01/13/25 TSH 1.340 uIU/mL (0.300-4.200) 12/16/24 07:03 11/20 06/12 COAG PT 15.2 SECONDS (11.7-14.9) H 01/13/25 12:21 12/18 06/12 Pre-Assessment Diagnosis/Proposed Procedure Planned Operative Procedure(s): COLONOSCOPY AND EGD Anesthesia History 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 When Was Last Pacemaker Check QUESTION #4 FULL TEXT: You/Your Family Experience fever (hyperthermia) with Anesthesia Last Oral Intake Last Oral intake: Last Oral Intake NPO since Meds taken in AM with sips of water? Meds patient instructed to take am of surgery PONV PONV - motor equipment lieutenant: PONV - motor equipment lieutenant Female Yes 02/09/25 11:04 HX of Motion Sickness No 02/09/25 11:04 HX of N/V After Surgery No 02/09/25 11:04 Non-Smoker Yes 02/09/25 11:04 Duration of Surgery greater No 02/09/25 11:04 than 60 minutes Number of Risk Factors 2 02/09/25 11:04 PONV Score Moderate Risk 02/09/25 11:04 Height & Weight Height & Weight: Anesthesia: Height & Weight Height 5 ft 6 in 01/13/25 10:49 Respiratory Assessment Respiratory Assessment - motor equipment lieutenant: Respiratory Tract Infection Hx - motor equipment lieutenant Hx Respiratory Tract Infection No 02/09/25 11:04 STOP Sleep Apnea STOP Sleep Apnea - motor equipment lieutenant: STOP Sleep Apnea - motor equipment lieutenant Hx Hypertension No 02/09/25 11:04 Hx Sleep Apnea No 02/09/25 11:04 CPAP BIPAP Do you snore loudly (louder No 02/09/25 11:04 than talking or can be heard Do you often feel tired/ No 02/09/25 11:04 fatigued/ sleepy during daytime? Has anyone observed you stop No 02/09/25 11:04 breathing during sleep? STOP Results Negative 02/09/25 11:04 QUESTION #5 FULL TEXT : Do you snore loudly (louder than talking or can be heard through closed doors)? 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: Tobacco Use History - motor equipment lieutenant Tobacco Use Smoking Status Never smoker 02/09/25 11:04 Hx Tobacco Use No 02/09/25 11:04 Years Smoking Packs Smoked per Day Smoking Cessation Date was within the last 15 years Hx Smoking Cessation Date Hx Smoking Cessation Counseling Hematologic Medial History Hematologic Hx - motor equipment lieutenant: Hematologic Medical Hx - recreational therapy aide Hx of Blood Transfusion No 02/09/25 11:04 Hx of Transfusion in last 3 No 02/09/25 11:04 Months Date of Last Transfusion (if within last 3 months) Ever experience any problems No 02/09/25 11:04 with transfusion(s)? Specify any problems Hx of Preganancy in last 3 No 02/09/25 11:04 Months Nurse Filling Out Transfusion [facility] 02/09/25 11:04 & Questions: Date: 02/09/25 02/09/25 11:04 Time: 11:14 02/09/25 11:04 Patient unable to answer at this time (ie. confused, unrespo /Reproduction History /Reproductive History - motor equipment lieutenant: /Reproductive Hx- motor equipment lieutenant Hx Now No 02/09/25 11:04 Gestational Age (in weeks): EDC: Hx Hx Para Hx Section SAB No 02/09/25 11:04 Active Medications Active Medications: Current Medications Generic Name Dose Route Start Last Admin Trade Name Freq PRN Reason Stop Dose Admin Lactated Ringer's 1,000 mls @ 15 mls/hr 02/13/25 11:00 IV .Q48H AVRIL PFSH Medical History History of echocardiogram Wears glasses Post-menopausal Cancer Low iron History of GI bleed Non-smoker BRCA gene positive Breast cancer metastasized to axillary lymph node Breast cancer, right breast Rheumatoid arthritis Home Medications ?Medication ?Instructions ?Recorded ?Last Taken ?Type multivitamin 1 tab PO DAILY general healt h 11/29/18 01/12/25 History anastrozole 1 mg tablet 1 mg PO DAILY arthritis 09/1901/12/25 History ferrous sulfate 325 mg (65 mg 325 mg PO MOWEFR anemia 10/13/19 01/13/25 History iron) tablet calcium 500 mg (as 1 ea PO BID def. 02/21/20 History carbonate)-vitamin D3 15 mcg (600 unit) tablet certolizumab pegol 400 mg/2 mL 200 mg subcut Q2W arthr itis 12/31/20 01/05/25 History (200 mg/mL x2) subcutaneous syringe kit (Cimzia) hydroxychloroquine 200 mg tablet 200 mg PO QHS arthrit is 07/09/21 01/12/25 History leflunomide 20 mg tablet 20 mg PO DAILY arthritis 01/12/25 History acetaminophen 500 mg tablet 1,000 mg PO Q8H PRN pain 0 01/13/25 Unknown History ascorbic acid (vitamin C) 500 mg 500 mg PO MOWEFR 01/18 02/10 Unknown History tablet (Vitamin C) Allergy/AdvReac Type Severity Reaction Status Date / Time No Known Allergies Allergy Verified 02/09/25 10:59 Family History Son Diabetes Grandfather Heart disease Mother Cancer possible throat cancer (Went through radiation) Father Cancer lung Surgical History History of thoracentesis History of incision and drainage S/P bilateral salpingo-oophorectomy S/P breast reconstruction S/P bilateral mastectomy Status post right breast lumpectomy (~12/2018) History of tonsillectomy Social History household members: none housing: apartment current occupational status: employed Smoking Status: Never smoker alcohol intake: current alcohol intake frequency: holidays/special occasions only substance use type: does not use caffeine: Yes what type of physical activity do you participate in: walking and aerobics frequency: 5-6 times per week seatbelt use: always do you feel safe at home: Yes additional social history: Patient works at [employer], home Review of Systems (Anesthesia) ROS Narrative System reviewed and no additional complaints, except as documented.
[2025-02-13] MEDS: Lactated Ringers 1,000 ML 15 ML IV (11:00)
--- NOTE | 2025-02-13 11:18 | PCM.HP.STD ---
HPI - General General Date of Admission: 02/13/25 Date of Service: 02/13/25 Chief Complaint: Lower GI bleeding HPI Narrative THUY PATTERSON, is a 54 F who presents for the evaluation of lower GI bleeding. PMHx of breast cancer and RA [facility] Admission 12.15.24-3.35 with septic wrist and bilateral shoulders. Underwent surgical drainage and IV antibiotics. [facility] ED 01.13.25 with fatigue and weakness. Work up revealing low Hgb 8.5 Pt here today for evaluation and to be scheduled for a colonoscopy. Pt has not had any further rectal bleeding since her last ED visit. She notes her hgb has trended upward since then and her PCP believes the low hemoglobin to be related to her chronic illnesses. She is no longer feeling fatigued or weak and thinks this was related to having influenza A. Her last colonoscopy was in [address] Painting with recommendation for repeat in 5 years so she is due at this time. [facility] Medical History History of echocardiogram Wears glasses Post-menopausal Cancer Low iron History of GI bleed Non-smoker BRCA gene positive Breast cancer metastasized to axillary lymph node Breast cancer, right breast Rheumatoid arthritis Home Medications ?Medication ?Instructions ?Recorded ?Last Taken ?Type multivitamin 1 tab PO DAILY general health 11/29/18 01/12/25 History anastrozole 1 mg tablet 1 mg PO DAILY arthritis 10/13/19 01/12/25 History ferrous sulfate 325 mg (65 mg 325 mg PO MOWEFR anemia 10/13/19 01/13/25 History iron) tablet calcium 500 mg (as 1 ea PO BID def. 02/21/20 01/12/25 History carbonate)-vitamin D3 15 mcg (600 unit) tablet certolizumab pegol 400 mg/2 mL 200 mg subcut Q2W arthritis 12/31/20 01/05/25 History (200 mg/mL x2) subcutaneous syringe kit (Cimzia) hydroxychloroquine 200 mg tablet 200 mg PO QHS arthritis 07/09/21 01/12/25 History leflunomide 20 mg tablet 20 mg PO DAILY arthritis 12/15/24 01/12/25 History acetaminophen 500 mg tablet 1,000 mg PO Q8H PRN pain 01/13/25 Unknown History ascorbic acid (vitamin C) 500 mg 500 mg PO MOWEFR 02/09/25 Unknown History tablet (Vitamin C) Allergy/AdvReac Type Severity Reaction Status Date / Time No Known Allergies Allergy Verified 02/09/25 10:59 Family History Son Diabetes Grandfather Heart disease Mother Cancer possible throat cancer (Went through radiation) Father Cancer lung Surgical History History of thoracentesis History of incision and drainage S/P bilateral salpingo-oophorectomy S/P breast reconstruction S/P bilateral mastectomy Status post right breast lumpectomy (~12/2018) History of tonsillectomy Social History household members: none housing: apartment current occupational status: employed Smoking Status: Never smoker alcohol intake: current alcohol intake frequency: holidays/special occasions only substance use type: does not use caffeine: Yes what type of physical activity do you participate in: walking and aerobics frequency: 5-6 times per week seatbelt use: always do you feel safe at home: Yes additional social history: Patient works at [employer] home ROS Constitutional Constitutional: Denies fatigue, fever(s), poor appetite, weight gain or weight loss Gastrointestinal Gastrointestinal: Denies belching, bloating, change in bowel habits, change in stool character, chewing difficulty, coffee ground emesis, constipation, cramping, diarrhea, dyspepsia, dysphagia, early satiety, excessive flatus, fecal incontinence, heartburn, hematemesis, hematochezia, hemorrhoids, loose stools, melena, nausea, odynophagia, rectal bleeding, tenesmus, vomiting or weight changes Vital Signs Vital Signs Vital Signs: 02/13/25 11:10 Temperature 98 F Temperature Source Temporal Pulse Rate 117 H Respiratory Rate 16 Blood Pressure 98/81 H Blood Pressure Mean 86 Blood Pressure Source Monitor Blood Pressure Position Sitting Blood Pressure Location Left Arm Pulse Ox 98 Oxygen Delivery Method Room Air Weight Weight: 127 lb 13.89 oz Body Mass Index (BMI) 21.2 Physical Exam Const alert, oriented x3, no apparent distress and healthy appearing General Appearance: cooperative GI normal to inspection, nondistended, normoactive bowel sounds, soft to palpation, non-tender and non-distended Percussion: normal to percussion Rectal Exam: deferred Assessment & Plan Assessment/Plan (1) Blood in stool: (2) Rectal bleeding: PLAN: Assessment and Plan Assessment and Plan (1) Blood in stool: Status: Acute Plan: This is a 54 yo female pt here today for evaluation of anemia and blood in her stool. Pt with PMHx of breast cancer. Pt was recently hospitalized with three septic joints and underwent surgical drainage and IV antibiotics. Following this, She was diagnosed with flu A and found to have a low hemoglobin. SHe does endorse one 4 day episode of BRBPR but has not had anything since. She notes her hgb has increased since the ED. She is due for a screening colonoscopy so she will be scheduled for this today. -Colonoscopy -f/y after procuedre
--- NOTE | 2025-02-13 11:45 | EGD_PTH ---
PATIENT: THUY PATTERSON LOC: EN U#:[id number] AGE/SX: 54/F ROOM: RE02/13/[address]: Dr. Carlos Harrington DO : 1970 BED: DIS: 02/13/2025 SPEC #: [id number] RECD: 02/14/25 08:49 STATUS: ROBBY RELencho #: [id number] VADIM: 02/13/25 11:[address]: Carlos Harrington DEPT: SURGICAL PATHOLOGY RECD BY: Donald Bravo ENTERED: 02/14/25 08:49 SP TYPE: EGD BIOPSY OT DR: Thuy Ireland, TALENT ASSISTANT-C Tissues: A - Gastric mucous membrane B - COLON BIOPSY Procedures: Surgery Specimen Level IV HEADER OPERATION: Colonoscopy with biopsy, EGD with biopsy PRE-OP DIAGNOSIS: Blood in stool, rectal bleeding TISSUE SUBMITTED: A- Antrum biopsy, B- Hepatic flexure biopsy MICROSCOPIC DIAGNOSIS A. Stomach, antrum, biopsy: Antral and oxyntic mucosa with features of reactive gastropathy. Negative for Helicobacter-like organisms (H&E). B. Colon, hepatic flexure, biopsy: Tubular adenoma. MICROSCOPIC DESCRIPTION Slides are reviewed. GROSS DESCRIPTION A. Received in fixative is one container labeled with the patient's name and designated Antrum biopsy. The specimen consists of multiple irregular fragments of light devries soft tissue that in aggregate measure 1.3 x 0.6 x 0.2 cm. The specimen is totally submitted in one cassette. B. Received in fixative is one container labeled with the patient's name and designated Hepatic flexure ulcer. The specimen consists of one irregular fragment of light devries soft tissue that measures 0.5 x 0.3 x 0.2 cm. The specimen is totally submitted in one cassette. 02/14/2025 CPT:41852i8
--- NOTE | 2025-02-13 12:28 | OP.EGD_ITS ---
Patient Name: Becky Huffman Procedure Date: 02/13/2025 11:56 AM Date of : 1970 Age: 54 Procedure: Upper GI endoscopy Indications: Acute post hemorrhagic anemia, Iron deficiency anemia, Recent gastrointestinal bleeding Providers: Carlos Harrington DO Referring MD: Becky Ireland Medicines: Monitored Anesthesia Care Patient Profile: This is a 54 year old female. Refer to note in patient chart for documentation of history and physical. Patient has symptoms of acute epigastric abdominal pain and chronic dyspepsia. Complications: No immediate complications. Procedure: Pre-Anesthesia Assessment: - Prior to the procedure, a History and Physical was performed, and patient medications and allergies were reviewed. The patient is competent. The risks and benefits of the procedure and the sedation options and risks were discussed with the patient. All questions were answered and informed consent was obtained. Patient identification and proposed procedure were verified by the physician in the pre-procedure area. Mental Status Examination: alert and oriented. Airway Examination: normal oropharyngeal airway and neck mobility. Respiratory Examination: clear to auscultation. CV Examination: normal. Prophylactic Antibiotics: The patient does not require prophylactic antibiotics. Prior Anticoagulants: The patient has taken no anticoagulant or antiplatelet agents except for NSAID medication. ASA Grade Assessment: II - A patient with mild systemic disease. After reviewing the risks and benefits, the patient was deemed in satisfactory condition to undergo the procedure. The anesthesia plan was to use monitored anesthesia care (MAC). Immediately prior to administration of medications, the patient was re-assessed for adequacy to receive sedatives. The heart rate, respiratory rate, oxygen saturations, blood pressure, adequacy of pulmonary ventilation, and response to care were monitored throughout the procedure. The physical status of the patient was re-assessed after the procedure. After obtaining informed consent, the endoscope was passed under direct vision. Throughout the procedure, the patient's blood pressure, pulse, and oxygen saturations were monitored continuously. The Colonoscope was introduced through the mouth, and advanced to the third part of the duodenum. Small bowel enteroscopy was deemed necessary. The upper GI endoscopy was accomplished without difficulty. The patient tolerated the procedure well. Scope In: 12:07:44 PM Scope Out: 12:10:35 PM Total Procedure Duration Time 0 hours 2 minutes 51 seconds Findings: The examined esophagus was normal. A small hiatal hernia was present. Patchy mildly erythematous mucosa without bleeding was found in the gastric body. Biopsies were taken with a cold forceps for histology. Verification of patient identification for the specimen was done. Estimated blood loss was minimal. Biopsies were taken with a cold forceps for Helicobacter pylori testing. Verification of patient identification for the specimen was done. Estimated blood loss was minimal. No gross lesions were noted in the entire examined duodenum. Impression: - Normal esophagus. - Small hiatal hernia. - Erythematous mucosa in the gastric body. Biopsied. - No gross lesions in the entire examined duodenum. Recommendation: - Discharge patient to home. - Resume previous diet. - Continue present medications. - Await pathology results. Procedure Code(s): --- Professional --- 81040, Small intestinal endoscopy, enteroscopy beyond second portion of duodenum, not including ileum; with biopsy, single or multiple CPT copyright 2021 [employer]. All rights reserved. The codes documented in this report are preliminary and upon salesperson household appliances review may be revised to meet current compliance requirements. Carlos Harrington DO 02/13/2025 12:27:42 PM This report has been signed electronically. Number of Addenda: 0 Note Initiated On: 02/13/2025 11:56 AM
--- NOTE | 2025-02-13 12:28 | OP.CCLET_ITS ---
02/13/2025 Becky Ireland Re : Upper GI endoscopy procedure for Becky Nathanael Hir Shu This procedure was performed on Thursday, February 13, 2025. My impressions and recommendations are as follows: Impressions : - Normal esophagus. - Small hiatal hernia. - Erythematous mucosa in the gastric body. Biopsied. - No gross lesions in the entire examined duodenum. Recommendations : - Discharge patient to home. - Resume previous diet. - Continue present medications. - Await pathology results. My findings are described in the full procedure note, which is enclosed. If I can be of further assistance, please feel free to contact me at . Sincerely, Carlos Harrington, 02/13/2025 12:27:42 PM This report has been signed electronically.
--- NOTE | 2025-02-13 12:31 | OP.CCLET_ITS ---
02/13/2025 Becky Ireland Re : Colonoscopy procedure for Becky Huffman Sussyr Shu This procedure was performed on Thursday, February 13, 2025. My impressions and recommendations are as follows: Impressions : - Internal hemorrhoids. - Diverticulosis in the recto-sigmoid colon, in the sigmoid colon and in the descending colon. - A few ulcers in the sigmoid colon and at the hepatic flexure. Biopsied. - The examined portion of the ileum was normal. - The examination was otherwise normal on direct and retroflexion views. Recommendations : - Discharge patient to home. - Resume previous diet. - Continue present medications. - Await pathology results. - Repeat colonoscopy is recommended. The colonoscopy date will be determined after pathology results from today's exam become available for review. My findings are described in the full procedure note, which is enclosed. If I can be of further assistance, please feel free to contact me at . Sincerely, Carlos Harrington, 02/13/2025 12:30:22 PM This report has been signed electronically.
--- NOTE | 2025-02-13 12:31 | OP.COLON_ITS ---
Patient Name: Becky Huffman Procedure Date: 02/13/2025 12:11 PM Date of : 1970 Age: 54 Procedure: Colonoscopy Indications: Hematochezia Providers: Carlos Harrington DO Referring MD: Becky Ireland Medicines: Monitored Anesthesia Care Patient Profile: This is a 54 year old female. Refer to note in patient chart for documentation of history and physical. Patient has symptoms of acute epigastric abdominal pain and chronic dyspepsia. Last Colonoscopy: date unknown. Unable to locate last colonoscopy report. Complications: No immediate complications. Procedure: Pre-Anesthesia Assessment: - Prior to the procedure, a History and Physical was performed, and patient medications and allergies were reviewed. The patient is competent. The risks and benefits of the procedure and the sedation options and risks were discussed with the patient. All questions were answered and informed consent was obtained. Patient identification and proposed procedure were verified by the physician in the pre-procedure area. Mental Status Examination: alert and oriented. Airway Examination: normal oropharyngeal airway and neck mobility. Respiratory Examination: clear to auscultation. CV Examination: normal. Prophylactic Antibiotics: The patient does not require prophylactic antibiotics. Prior Anticoagulants: The patient has taken no anticoagulant or antiplatelet agents except for NSAID medication. ASA Grade Assessment: II - A patient with mild systemic disease. After reviewing the risks and benefits, the patient was deemed in satisfactory condition to undergo the procedure. The anesthesia plan was to use monitored anesthesia care (MAC). Immediately prior to administration of medications, the patient was re-assessed for adequacy to receive sedatives. The heart rate, respiratory rate, oxygen saturations, blood pressure, adequacy of pulmonary ventilation, and response to care were monitored throughout the procedure. The physical status of the patient was re-assessed after the procedure. After I obtained informed consent, the scope was passed under direct vision. Throughout the procedure, the patient's blood pressure, pulse, and oxygen saturations were monitored continuously. The Colonoscope was introduced through the anus and advanced to the terminal ileum. The colonoscopy was performed without difficulty. The patient tolerated the procedure well. The quality of the bowel preparation was adequate. The ileocecal valve, appendiceal orifice, and rectum were photographed. Scope In: 12:12:38 PM Scope Withdrawal Time 0 hours 7 minutes 36 seconds Scope Out: 12:22:40 PM Total Procedure Duration Time 0 hours 10 minutes 2 seconds Findings: The perianal and digital rectal examinations were normal. Internal hemorrhoids were found during retroflexion. The hemorrhoids were Grade II (internal hemorrhoids that prolapse but reduce spontaneously). A few small-mouthed diverticula were found in the recto-sigmoid colon, sigmoid colon and descending colon. A few three mm ulcers were found in the sigmoid colon and at the hepatic flexure. No bleeding was present. Biopsies were taken with a cold forceps for histology. Verification of patient identification for the specimen was done. Estimated blood loss was minimal. The terminal ileum appeared normal. The exam was otherwise without abnormality on direct and retroflexion views. Impression: - Internal hemorrhoids. - Diverticulosis in the recto-sigmoid colon, in the sigmoid colon and in the descending colon. - A few ulcers in the sigmoid colon and at the hepatic flexure. Biopsied. - The examined portion of the ileum was normal. - The examination was otherwise normal on direct and retroflexion views. Recommendation: - Discharge patient to home. - Resume previous diet. - Continue present medications. - Await pathology results. - Repeat colonoscopy is recommended. The colonoscopy date will be determined after pathology results from today's exam become available for review. Procedure Code(s): --- Professional --- 45352, Colonoscopy, flexible; with biopsy, single or multiple CPT copyright 2021 [employer]. All rights reserved. The codes documented in this report are preliminary and upon workforce consultant review may be revised to meet current compliance requirements. Carlos Harrington DO 02/13/2025 12:30:22 PM This report has been signed electronically. Number of Addenda: 0 Note Initiated On: 02/13/2025 12:11 PM
--- NOTE | 2025-02-13 12:31 | PCM.POST.ANE ---
Anesthesia: Postop Eval I Current Vital Signs Temperature: 98.4 F Pulse Rate: 92 Blood Pressure: 100/69 Respiratory Rate: 16 Pulse Ox: 97 Oxygen Delivery Method: Room Air Assessment Airway patent: Yes Spontaneous unlabored respirations: Yes Mental status: Asleep nausea: No Vomiting: No Anesthesia Complication: No Fluid Hydration Crystalloid volume administer (ml): 700 Total IV fluid infused: 700 Progress Note Anesthesia document: Postop Eval 1 completed: Yes
--- NOTE | 2025-02-13 13:07 | PCM.POSTANE2 ---
Anesthesia Postop Eval I Sum Postop Eval Completion status Anesthesia document: Postop Eval 1 completed: Yes Anesthesia Postop Eval I Summary Anesthesia Postop Eval I Summary: Anesthesia Postop Eval I: Assessment Summary Airway patent Yes 02/13/25 12:32 [email or web address] Spontaneous unlabored Yes 02/13/25 12:32 [email or web address] respirations Mental status Asleep 02/13/25 12:32 [email or web address] nausea No 02/13/25 12:32 [email or web address] Vomiting No 02/13/25 12:32 [email or web address] Anesthesia Postop Eval I: Fluid Summary Crystalloid volume administer 700 02/13/25 12:32 [email or web address] (ml) Colloids volume administered ( ml) Blood Product volume administered (ml) Total IV fluid infused 700 02/13/25 12:32 [email or web address] Anesthesia Postop Eval I: Summary Notes Anesthesia Complication No 02/13/25 12:32 [email or web address] Anesthesia Complication Comment: Post-operative progress note Anesthesia: Postop Eval II Evaluation Mental status: Awake Pain Level: 0 nausea: No Vomiting: No
== END 2025-02-13 13:14 | disposition home or self-care (01) ==
LOC: EN 10:38 → AC 10:39
PROVIDERS: PCP Registered Nurse; Referring Provider Registered Nurse; Visit Provider Internal Medicine Gastroenterology
PROC: 0DJD8ZZ Inspection of Lower Intestinal Tract, Via Natural or Artificial Opening Endoscopic (ICD-10-PCS; CPT 45378; principal; 2025-02-13 11:40)
DX: K57.31 Diverticulosis of large intestine without perforation or abscess with bleeding (principal); K64.1 Second degree hemorrhoids; D12.3 Benign neoplasm of transverse colon; K63.3 Ulcer of intestine; K44.9 Diaphragmatic hernia without obstruction or gangrene; D62 Acute posthemorrhagic anemia; Z90.13 Acquired absence of bilateral breasts and nipples; Z85.3 Personal history of malignant neoplasm of breast
CPT/HCPCS: 45380; 44361; 88305; J2405

== ENCOUNTER 2025-02-15 10:30 | Outpatient (RCR) | payer OTHER, SELFPAY ==
--- NOTE | 2025-01-16 16:51 | HP.PTEVAL ---
Patient's Visit Information Visit Information Visit Information: THUY PATTERSON is a 54 year old F referred to Physical Therapy by CLOTILDE Meraz with a diagnosis of B shoulder OA 12/15/24. Date of Evaluation: 01/16/25 Physical Therapist: López Cameron, PT, ATC Visit Plan Frequency: 2-3x /Week Duration: 4-6 Weeks Plan: B shoulder PROM/mobs, rotator cuff strengthening, scap stab ex's, UBE, and HEP Subjective Subjective: DOS: 12/15/24. Pt reports she had influenza A at the time and notes this lead to an infection in her L wrist and B shoulders. Pt reports she is feeling better overall, but notes she continues to have difficulty with overhead activity. Pt denies any tingling or numbness in UE's. My arms just feel heavy. Pt denies prior Hx of B shoulder surgery. Pt notes she is sleeping better overall, but notes she continues to experience difficulty secondary to pain. Pt notes she sleeps on her recliner couch at this time. Pt is R hand dominant. 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 L shoulder pain ranges from 0-5/10, while R shoulder pain ranges from 5-8/10. Objective Objective: Neuro: B UE sensation is WNL to light touch. B bicipital reflex= 1/3 observation: Incisions healed. No signs of infection ROM: L shoulder flex= 120, abd= 115, ER= 40, IR= WNL; R shoulder flex= 80, abd= 65, ER= 40, IR= Moderately limited MMT: L shoulder flex= 6, abd= 11, ER= 8, IR= 13 #F; R shoulder flex= 0, abd= 6, ER= 7, IR= 9 #F Balance/Special Test Scores Quick DASH Score: 56.8175 Goals Goal 1:: Decrease B shoulder pain x 50% to aid with sleep Goal Time Frame: 4-6 Weeks Goal 2:: Increase B shoulder flexion and abduction ROM x 30 degrees to aid with overhead lifting Goal Time Frame: 4-6 Weeks Goal 3:: Increase B shoulder strength x 5-10#F to aid with RTW without limitation Goal Time Frame: 4-6 Weeks Goal 4:: I with HEP Goal Time Frame: 4-6 Weeks Rehabilitation Potential Physical Therapy Diagnosis: Pt has B shoulder pain, weakness, and limited ROM secondary to B shoulder arthroscopy Rehabilitation Potential: Good Anticipated Interventions Patient/Client Instruction: Educate patient on: Condition and Plan of Care For the Purpose of:: To improve self management Therapeutic Exercise to Include: Strength training, Endurance training, Flexibilty training, Passive ROM, Active ROM and Scapular Strength/Stabilization For the Purpose of:: To decrease pain, To increase ROM and To improve muscle performance and motor function Cryotherapy (ice pack, ice massage): Yes For the Purpose of:: To decrease pain Text: Thank you for the opportunity to evaluate your patient. For Medicare and Medicare HMO plans, please review the plan of care and approve it. It will need to be FAXED BACK to us at [phone] for Medicare purposes. For Medicare only, by signing this I certify the plan of care. Please let me know if there are questions or concerns regarding this plan of care. Physician Signature: Date:
--- NOTE | 2025-01-16 16:54 | HP.PTEVAL_ITS ---
Patient's Visit Information Visit Information Visit Information: THUY PATTERSON is a 54 year old F referred to Physical Therapy by CLOTILDE Meraz with a diagnosis of B shoulder OA 12/15/24. Date of Evaluation: 01/16/25 Physical Therapist: López Cameron, PT, ATC Visit Plan Frequency: 2-3x /Week Duration: 4-6 Weeks Plan: B shoulder PROM/mobs, rotator cuff strengthening, scap stab ex's, UBE, and HEP Subjective Subjective: DOS: 12/15/24. Pt reports she had influenza A at the time and notes this lead to an infection in her L wrist and B shoulders. Pt reports she is feeling better overall, but notes she continues to have difficulty with overhead activity. Pt denies any tingling or numbness in UE's. My arms just feel heavy. Pt denies prior Hx of B shoulder surgery. Pt notes she is sleeping better overall, but notes she continues to experience difficulty secondary to pain. Pt notes she sleeps on her recliner couch at this time. Pt is R hand dominant. 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 L shoulder pain ranges from 0-5/10, while R shoulder pain ranges from 5- 8/10. Objective Objective: Neuro: B UE sensation is WNL to light touch. B bicipital reflex= 1/3 observation: Incisions healed. No signs of infection ROM: L shoulder flex= 120, abd= 115, ER= 40, IR= WNL; R shoulder flex= 80, abd= 65, ER= 40, IR= Moderately limited MMT: L shoulder flex= 6, abd= 11, ER= 8, IR= 13 #F; R shoulder flex= 0, abd= 6, ER= 7, IR= 9 #F Balance/Special Test Scores Quick DASH Score: 56.8175 Goals Goal 1:: Decrease B shoulder pain x 50% to aid with sleep Goal Time Frame: 4-6 Weeks Goal 2:: Increase B shoulder flexion and abduction ROM x 30 degrees to aid with overhead lifting Goal Time Frame: 4-6 Weeks Goal 3:: Increase B shoulder strength x 5-10#F to aid with RTW without limitation Goal Time Frame: 4-6 Weeks Goal 4:: I with HEP Goal Time Frame: 4-6 Weeks Rehabilitation Potential Physical Therapy Diagnosis: Pt has B shoulder pain, weakness, and limited ROM secondary to B shoulder arthroscopy Rehabilitation Potential: Good Anticipated Interventions Patient/Client Instruction: Educate patient on: Condition and Plan of Care For the Purpose of:: To improve self management Therapeutic Exercise to Include: Strength training, Endurance training, Flexibilty training, Passive ROM, Active ROM and Scapular Strength/Stabilization For the Purpose of:: To decrease pain, To increase ROM and To improve muscle performance and motor function Cryotherapy (ice pack, ice massage): Yes For the Purpose of:: To decrease pain Text: Thank you for the opportunity to evaluate your patient. For Medicare and Medicare HMO plans, please review the plan of care and approve it. It will need to be FAXED BACK to us at [phone] for Medicare purposes. For Medicare only, by signing this I certify the plan of care. Please let me know if there are questions or concerns regarding this plan of care. Physician Signature: Date:
--- NOTE | 2025-02-15 12:00 | HP.PTDCSUM ---
Discharge Summary D/C summary: It has been my pleasure to treat THUY PATTERSON referred by CLOTILDE Meraz, with the diagnosis of B shoulder OA 12/15/24 for a total of 9 visit(s). Discharge Date: Please see the following information for a summary of their discharge status. Subjective Subjective: Pt is going back to work on Thursday Pain B shoulders: Pain Intensity (Out of 10): 2 Overall Improvement % Improvement: 50 Objective Objective/Function: B shoulder pain is 2/10 ROM: L shoulder flex= 140, abd= 140 degrees; R shoulder flex= 130, abd= 105 MMT: L shoulder flex= 6, abd= 9, ER= 8, IR= 9 #F; R shoulder flex= 6, abd= 7, ER= 8, IR= 11 #F Pt has shown excellent progress at this time Goals Goal 1:: Decrease B shoulder pain x 50% to aid with sleep Goal 2:: Increase B shoulder flexion and abduction ROM x 30 degrees to aid with overhead lifting Goal 3:: Increase B shoulder strength x 5-10#F to aid with RTW without limitation Goal 4:: I with HEP Goal Progress: Goal Met Plan Plan: Discharge to HEP D/C Information d/c sentence: If there are questions or concerns regarding this patient's physical therapy, please feel free to call me at [phone]. Thank you for the referral of this patient. Sincerely, López Cameron, PT, ATC Balance/Gait/Functional tests Balance/Special Test Scores Quick DASH Score: [phone] Improvement % Improvement: 50
== END 2025-02-15 19:00 | disposition home or self-care (01) ==
LOC: PT 10:30
PROVIDERS: PCP Registered Nurse; Referring Provider Physician Assistant Surgical; Visit Provider Physician Assistant Surgical
DX: M00.811 Arthritis due to other bacteria, right shoulder (principal); M00.812 Arthritis due to other bacteria, left shoulder
CPT/HCPCS: 97110; 97161; 97530

== ENCOUNTER → 2025-05-08 | Outpatient (CLI) | payer OTHER, SELFPAY ==
--- OUTSIDE RECORDS SUMMARY | 2025-05-08 21:22 | XMS RPT_ITS | CCD ---
Author Organization [facility] Care Team Providers Care Barrel Polisher Name Role Phone Dede Pettit Attending Unavailable PROVIDER, UNKNOWN Referring Unavailable UNKNOWN, PROVIDER Primary Care Unavailable Dede Pettit Attending Unavailable PROVIDER, UNKNOWN Referring Unavailable No, PCP Primary Care Unavailable Dede Pettit Attending Unavailable PROVIDER, UNKNOWN Referring Unavailable UNKNOWN, PROVIDER Primary Care Unavailable Patrice Hickman Attending Unavailable PROVIDER, UNKNOWN Referring Unavailable UNKNOWN, PROVIDER Primary Care Unavailable Dede Pettit Attending Unavailable PROVIDER, UNKNOWN Referring Unavailable UNKNOWN, PROVIDER Primary Care Unavailable Femi Elias Primary Care Provider Garima CHENG, Dr. Femi Ang Referring Provider Dr. Nydia Bains Attending Provider [phone] Tomasz HANNAH, Rallibharat Unavailable Femi Elias MD Primary Care Provider [phone] CEBUL, FEMI Primary Care Unavailable CEBUL, FEMI Referring Unavailable SHIVA, ANNIKA Attending Unavailable CEBUL, FEMI Primary Care Unavailable SHIVA, ANNIKA Referring Unavailable MALIKA, LINWOOD Admitting Unavailable MALIKA, LINWOOD Attending Unavailable ADAMSPREET Attending Unavailabl e ADAMS PREET L Admitting Unavailabl e CEBUL, FEMI Referring Unavailable CEBUL, FEMI Primary Care Unavailable ADAMS PREET L Attending Unavailabl e CEBUL, FEMI Primary Care Unavailable SHIVA, ANNIKA Referring Unavailable ADAMS PREET L Admitting Unavailabl e CEBUL, FEMI Primary Care Unavailable SHIVA, ANNIKA Attending Unavailable SHIVA, ANNIKA Referring Unavailable CEBUL, FEMI Primary Care Unavailable MALIKA, LINWOOD Attending Unavailable MALIKA, LINWOOD Referring Unavailable ADAMSPREET L Attending Unavailabl e ADAMSANNAPREET L Referring Unavailabl e CEBUL, FEMI Primary Care Unavailable PREET ADAMS Referring Unavailabl e CEBUL, FEMI Primary Care Unavailable PREET ADAMS Attending UnavailJIGNESH Gaston Referring Unavailable CEBUL, FEMI Primary Care Unavailable ANNKIA SHANNON Attending Unavailable JIGNESH VIVAS Attending Unavailable CEBUL, FEMI Primary Care Unavailable CEBUL, FEMI Referring Unavailable Alexx BRIDGES, Maren Unavailable Unavailable Harsh RN, Shraddha Unavailable Unavailable Priyank HANNAH MD, Daesung Unavailable Haagen AUTO P[facility]TER.[facility] Primary Care Provider Alexx RN, Maren Unavailable Unavailable Alexx RN, Maren Unavailable Unavailable Harsh RN, Shraddha Unavailable Unavailable Priyank HANNAH MD, Daesung Unavailable Haagen [facility] [facility]TER.[facility] Primary Care Provider Care Physician, No Primary Primary Care Provider Unavailable Care Physician, No Primary Referring Provider Un available Dr. Nydia Bains Attending Provider Harsh RN, Shraddha Unavailable Unavailable Priyank HANNAH, Eda Unavailable Care Physician, No Primary Primary Care Provider Unavailable Care Physician, No Primary Referring Provider Un available Dr. Nydia Bains Attending Provider Haagen [employer].[facility] Primary Care Provider Haagen AUT[employer]TER.[facility] Primary Care Provider Suppan AUTO PORTER.RAY, Onelia A Unavailable Jignesh Root MD Unavailable Suppan AUTO PORTER.ATMOSPHERIC CHEMIST, Onelia A Unavailable Suppan AUTO PORTER.RAY, Onelia A Unavailable Jignesh Root MD Unavailable Haagen PIN CHASER-C, [facility] Primary Care Provider Dr. Ajith Chavira MD Referring Provider [phone] Ajith Chavira MD Emergency Provider Dr. Mauricio Pavon DO Admit Provider Unavail able Dr. Mauricio Pavon DO Other Provider Unavail able Toni HANNAH, Dr. Robles Other Provider Taran HANNAH, Dr. Armenta Attending Provider Unavaila ble David HANNAH, Dr. Gabriel Damico Other Provider David HANNAH, Dr. Gabriel Damico Attending Provider Taran HANNAH, Dr. Armenta Other Provider Unavailable Natalie HANNAH, Dr. Abebe Emergency Provider Natalie HANNAH, Dr. Abebe Attending Provider Pay DO, Dr. Husain Referring Provider Pay DO, Dr. Husain Emergency Provider HAAGEN, BECKY Referring Unavailable HAAGEN, BECKY Primary Care Unavailable HAAGEN, BECKY Primary Care Unavailable SANDRITA PRICE Attending Unavailable SANDRITA PRICE Admitting Unavailable Pay DO, Dr. Husain Attending Provider Haagen PIN CHASER-C, Becky Referring Provider Merrill Ervin Attending Provider Katie Greenwood Attending Provider [phone] Katie Greenwood Referring Provider Juany HERNANDEZ, Dr. Gonzalez Attending Provider Juany HERNANDEZ, Dr. Gonzalez Other Provider HILDA UMANA Referring Unavailable HAAGEN, BECKY Primary Care Unavailable HAAGEN, BECKY Primary Care Unavailable HAAGEN, BECKY Attending Unavailable HAAGEN, BECKY Primary Care Unavailable HAAGEN, BECKY Attending Unavailable HAAGEN, BECKY Primary Care Unavailable HAAGEN, BECKY Referring Unavailable HAAGEN, BECKY Primary Care Unavailable AUSTEN CARTER Referring Unavailable COY LOOMIS Attending Unavailable HAAGEN, BECKY Primary Care Unavailable MICHELLE LOOMISINE M Referring Unavailable HAAGEN, BECKY Primary Care Unavailable HAAGEN, BECKY Primary Care Unavailable HAAGEN, BECKY Referring Unavailable HAAGEN, BECKY Attending Unavailable HAAGEN, BECKY Primary Care Unavailable HAAGEN, BECKY Primary Care Unavailable HAAGEN, BECKY Referring Unavailable HAAGEN, BECKY Attending Unavailable HAAGEN, BECKY Primary Care Unavailable ADELINA LUIS Attending Unavailable HAAGEN, BECKY Primary Care Unavailable ANUPAM VELASCO Referring Unavailable HAAGEN, BECKY Primary Care Unavailable HAAGEN, BECKY Primary Care Unavailable ADELINA LUIS Attending Unavailable HAAGEN, BECKY Primary Care Unavailable HAAGEN, BECKY Primary Care Unavailable AUSTEN CARTER Referring Unavailable HAAGEN, BECKY Primary Care Unavailable FRAN GOMEZ Referring Unavailable HAAGEN, BECKY Referring Unavailable HAAGEN, BECKY Primary Care Unavailable HAAGEN, BECKY Primary Care Unavailable FLORIAN PARTIDA Referring Unavailable HAAGEN, BECKY Primary Care Unavailable HAAGEN, BECKY Referring Unavailable AUSTEN CARTER Attending Unavailable HAAGEN, BECKY Primary Care Unavailable SIS STOCKTON Referring Unavailable DONGHILDA Attending Unavailable HAAGEN, BECKY Primary Care Unavailable DONG, HILDA Referring Unavailable HAAGEN, BECKY Primary Care Unavailable DONG, HILDA Referring Unavailable HAAGEN, BECKY Primary Care Unavailable HAAGEN, BECKY Primary Care Unavailable FRAN GOMEZ Attending Unavailable HAAGEN, BECKY Referring Unavailable HAAGEN, BECKY Referring Unavailable HAAGEN, BECKY Primary Care Unavailable HAAGEN, BECKY Primary Care Unavailable Haagen, Becky Primary Care Unavailable Katie Sorto Referring Unavailable Katie Sorto Attending Unavailable Haagen, Becky Primary Care Unavailable Andrae Estrada Attending Unavailable Haagen, Becky Primary Care Unavailable PayRodrigue Referring Unavailable PayRodrigue Attending Unavailable Haagen, Becky Primary Care Unavailable Mauricio Pavon Consulting Unavailable Mauricio Chirinos Attending Unavailable Chavira, Ajith Referring Unavailable Mauricio Pavon Admitting Unavailable Travis Muñoz Consulting Unavailable Gabriel Hernandez Consulting Unavailable Haagen, Becky Primary Care Unavailable Haagen, Becky Referring Unavailable Nydia Bains Attending Unavailable Haagen, Becky Primary Care Unavailable Haagen, Becky Referring Unavailable FriendCarlos Attending Unavailable FriendCarlos Consulting Unavailable Haagen, Becky Primary Care Unavailable Haagen, Becky Referring Unavailable Merrill Galarza Attending Unavailable Haagen, Becky Primary Care Unavailable Mauricio Pavon Admitting Unavailable Gabriel Hernandez Attending Unavailable Fan, Ajith Referring Unavailable Mauricio Pavon Consulting Unavailable Travis Muñoz Consulting Unavailable Gabriel Hernandez Consulting Unavailable Mauricio Chirinos Attending Unavailable Mauricio Chirinos Consulting Unavailable Mauricio Pavon Attending Unavailable Becky Ireland Primary Care Unavailable Becky Ireland Referring Unavailable Friend, Carlos Attending Unavailable Shu PIN CHASER-C, Becky Primary Care Provider Katie Greenwood Attending Provider Katie Greenwood Referring Provider [phone] Nara HANNAH, Dr. Stafford Attending Provider [phone] Medications Current Medications Medication Drug Class(es) Dates Sig (Normalized) Sig (Original) acetaminophen 500 mg oral tablet (9 sources) Start: 12-21-2024 End: 01-13-2025 take 2 tablets by mouth every eight hours as needed for pain Acetaminophen 500 mg Tablet Active 1000 mg PO Q8H as needed for pain January 13, 2025 12:00am Start: 05-29-2020 take 1 tablet by shelly th every six hours as needed acetaminophen (Tylenol) 325 MG tablet Take 1 tablet by mouth every 6 hours as needed for Mild Pain or Moderate Pain. 30 tablet 0 05/29/2020 Active amoxicillin 500 mg oral capsule (1 source) Penicillin-class Antibacterial Start: 12-17-2023 End: 12-27-2023 take 1 capsule by mouth twice daily amoxicillin (AMOXIL) 500 mg capsule Indications: Strep throat Take 1 capsule by mouth two times a day for 10 days. 20 capsule 0 12/17/2023 12/27/2023 Active Comment on above: Take 1 capsule by mo uth two times a day for 10 days. amoxicillin 875 mg / clavulanate 125 mg oral tablet (5 sources) Penicillin-class Antibacterial Start: 02-14-2025 End: 03-07-2025 take 1 tablet by mouth twice daily amoxicillin-clavu lanate potassium (AUGMENTIN) 875-125 mg per tablet Take 1 tablet by mouth two times a day for 21 days. 42 tablet 02/14/2025 03/07/2025 Active Start: 06-05-2024 End: 06-12-2024 amoxicillin-clavulanate pota ssium (AUGMENTIN) 875-125 mg per tablet Take 1 tablet by mouth two times a day for 7 days. FOR 7 DAYS. 14 tablet 06/05/2024 06/12/2024 Active Start: 08-18-2023 End: 08-28-2023 take 1 tablet by mouth twice daily amoxicillin-clavulanate potassium (AUGMENTIN) 875-125 mg per tablet Indications: Sinus pressure Take 1 tablet by mouth two times a day for 10 days. 20 tablet 0 08/18/2023 08/28/2023 Active Comment on above: Take 1 tablet by shelly th two times a day for 10 days. anastrozole 1 mg oral tablet (20 sources) Aromatase Inhibitor Start: 10-13-2019 End: 10-04-2024 take 1 tablet by mouth once daily anastrozole (ARIMIDEX) 1 mg tablet Indications: Malignant neoplasm of central portion of right breast in female, estrogen receptor positive (HCC) Take 1 tablet by mouth once daily. 90 tablet 3 10/06/2024 Active Comment on above: Take 1 tablet by shelly th once daily. ascorbic acid 500 mg oral tablet (20 sources) Vitamin C Start: 02-09-2025 Ascorbic Acid (Vitamin C) (Vitamin C) 500 mg tablet Active 500 mg PO February 09, 2025 12:00am Start: 01-27-2025 take 1 tablet by mouth once as corbic acid, vitamin C, (VITAMIN C) 500 mg tablet Take 1 tablet by mouth every Thursday, Thursday, and Thursday. 90 tablet 01/27/2025 Active Calcium Carb-Cholecalciferol (CALCIUM 600-D PO) (2 sources) Calcium Carb-Cho lecalciferol (CALCIUM 600-D PO) Take by mouth every evening. 0 Active calcium carbonate 1250 mg / cholecalciferol 600 unt oral tablet (8 sources) Vitamin D Start: 02-21-2020 Calcium Carbonate-Vitamin D3 1 EACH tablet Active 1 NMA PO TWICE A DAY February 21, 2020 12:00am def. Start: 02-21-2020 Calcium Carbon ate-Vitamin D3 Active 1 EACH PO TWICE A DAY February 21, 2020 12:00am Calcium Carb-Cho lecalciferol 600-500 MG-UNIT CAPS Take by mouth daily 0 Active Calcium Carbonate / vitamin D3 (20 sources) take 1 tablet by shelly th once daily calcium carbonate/vitamin D3 (CALCIUM 600 + D ORAL) Take 1 tablet by mouth once daily. Active take 1 tablet by mouth once loly y calcium carbonate/vitamin D3 (CALCIUM 600 + D ORAL) Take 1 tablet by mouth once daily. 0 Active Comment on above: Take 1 tablet by shelly once daily. 1 ml certolizumab pegol 200 mg/ml prefilled syringe (20 sources) Start: 12-31-2020 Certolizumab Pegol (Cimzia) 400 mg/2 mL (200 mg/mL x 2) syringe kit Active 200 mg SC every 2 weeks December 31, 2020 12:00am arthritis certolizumab peg ol (CIMZIA SUBCUTANEOUS) Inject 200 mg subcutaneously. Twice a month Active certolizumab peg ol (CIMZIA SUBCUTANEOUS) Inject 200 mg subcutaneously. Twice a month 0 Active inject 200 mg by sub cutaneous injection every other week certolizumab pegol (Cimzia) 2 X 200 MG K it Inject 200 mg under the skin Every other week. 0 Active Comment on above: Inject 200 mg subcut aneously. Twice a month cholecalciferol, vitamin D3, (VITAMIN D3 ORAL) (20 sources) take 2000 [IU] by mouth once daily cholecalciferol, vitamin D3, (VITAMIN D3 ORAL) Take 2,000 Units by mouth once daily. Active take 2000 [IU] by mouth once nathalie ly cholecalciferol, vitamin D3, (VITAMIN D3 ORAL) Take 2,000 Units by mouth once daily. 0 Active Comment on above: Take 2,000 Units by mouth once daily. ciclopirox 80 mg/ml topical solution (3 sources) Start: 2 End: 3 Ciclopirox (LOPROX) 8 % solution Apply to affected area daily at bedtime. Apply nightly at bedtime. Clean nail w/ alcohol every 7 days. May use up to 48 weeks. 6.6 mL 5 11/25/2021 10/27/2022 Active Comment on above: Apply to affected ar ea daily at bedtime. Apply nightly at bedtime. Clean nail w/ alcohol every 7 days. May use up to 48 weeks. DAILY MULTIVITAMIN TAB (20 sources) Start: 5 take 1 tablet by mouth once daily DAILY MULTIVITAMIN TAB Take 1 tablet by mouth once daily. 0 10/17/2005 Active Start: 10-17-2005 DAILY MULTIVIT [place] TAB Take one(1) tablet daily. 0 10/17/2005 Active Comment on above: Take one(1) tablet d aily. Take 1 tablet by shelly th once daily. enteric contrast (will be provided with radiology test) (1 source) Start: 01-26-2025 End: 01-27-2025 enteric contrast (will be provided with radiology test) Indications: Iron deficiency anemia, unspecified iron deficiency anemia type , Malignant neoplasm of central portion of right breast in female, estrogen receptor positive (HCC) , Pleural effusion For CT CHESTABD/PEL W IVCON Routine order Administer, As Directed One Time Only, via Oral, Rectal, both Oral and Rectal, Enteric Tube, Stoma or Indwelling Catheter, Enteric Contrast as designated per enteric contrast guidelines 1 each 01/26/2025 01/27/2025 Active ferrous gluconate (2 sources) Ferrous Gluconat e (IRON 27 PO) Take by mouth daily every morning. 0 Active ferrous sulfate 325 mg oral tablet (20 sources) Start: 10-13-2019 Ferrous Sulfate 325 MG tablet Active 325 mg PO MOWEFR October 13, 2019 1:00am anemia Start: 10-13-2019 take 1 tablet by shelly twice daily Ferrous Sulfate 325 MG tablet Active 325 mg PO TWICE A DAY October 13, 2019 1:00am Comment on above: Take 325 mg by mouth once daily. hydrocortisone 0.025 mg/mg topical ointment (17 sources) Corticosteroid Start: 05-08-2025 Hydrocortisone 2.5 % ointment Active 1 NMA TOPICAL TWICE A DAY 28.35 May 08, 2025 12:00am Start: 12-15-2024 End: 02-03-2025 Hydrocortisone 2.5 % ointmen t Discontinued 1 NMA TOPICAL TWICE A DAY as needed for perineal area December 15, 2024 1:00am February 03, 2025 2:38pm Start: 01-25-2024 End: 12-15-2024 Hydrocortisone 2.5 % ointmen t Discontinued 1 NMA TOPICAL TWICE A DAY 28.35 January 25, 2024 9:19am December 16, 2024 12:28am Start: 01-10-2022 End: 01-25-2024 Hydrocortisone 2.5 % ointmen t Discontinued 1 NMA TOPICAL TWICE A DAY 28.35 January 10, 2022 12:00am January 25, 2024 9:19am Start: 01-10-2022 End: 01-25-2024 Hydrocortisone Active 1 APPL IC TOPICAL TWICE A DAY 28.35 January 25, 2024 9:19am hydroxychloroquine sulfate 200 mg oral tablet (20 sources) Antimalarial, Antirheumatic Agent Start: 05-20-2021 take 1 tablet by mouth at bedtime Hydroxychloroquine 200 mg tablet Active 200 mg PO AT BEDTIME July 09, 2021 2:44pm arthritis Start: 10-13-2019 End: 07-09-2021 take 1 tablet by mouth twice daily Hydroxychloroquine 200 MG tablet Discontinued 200 mg PO TWICE A DAY October 13, 2019 1:00am July 09, 2021 2:45pm Comment on above: Take 200 mg by mouth once daily. ibuprofen 400 mg oral tablet (9 sources) Nonsteroidal Anti-inflammatory Drug Start: 05-29-2020 take 1 tablet by mouth every six hours as needed ibuprofen 400 MG tablet Take 1 tablet by mouth every 6 hours as needed for Mild Pain or Moderate Pain. 30 tablet 1 05/29/2020 Active Start: 02-28-2020 End: 07-09-2021 take 1 tablet by mouth every six hours as needed for pain Ibuprofen 600 MG tablet Discontinued 600 mg PO EVERY 6 HOURS NEEDED as needed for Pain 30 0 February 28, 2020 12:00am July 09, 2021 2:44pm IRON, FERROUS SULFATE, PO (1 source) take 325 mg by mouth once daily IRON, FERROUS SULFATE, PO Take 325 mg by mouth daily 0 Active itraconazole 100 mg oral capsule (1 source) Azole Antifungal Start: 05-12-20 24 End: 05-19-20 24 take 2 capsules by mouth twice daily itraconazole (SPORANOX PULSEPAK) 100 mg capsule Indications: Onychodystrophy Take 2 capsules by mouth two times a day for 7 days. 28 capsule 3 05/12/2024 05/19/2024 Active leflunomide 20 mg oral tablet (20 sources) Antirheumatic Agent Start: 05-18-20 take 1 tablet by mouth once daily Leflunomide 20 mg tablet Active 20 mg PO DAILY December 15, 2024 1:00am arthritis Start: 12-19-2019 End: 01-13-2025 Leflunomide (Arava) 10 mg ta blet Discontinued 20 mg PO DAILY December 19, 2019 1:00am January 13, 2025 12:38pm arthritis On Hold: Resume on 01/09/25. Comment on above: Take 20 mg by mouth once daily. Multiple Vitamin (MULTIVITAMIN PO) (2 sources) Multiple Vitamin (MULTIVITAMIN PO) Take by mouth daily every morning. 0 Active Multiple Vitamins-Minerals (MULTIVITAMIN ADULTS PO) (1 source) Multiple Vitamins-Minerals (MULTIVITAMIN ADULTS PO) Take by mouth daily 0 Active Multivitamin preparation (3 sources) Start: 11-29-2018 take 1 tablet by mouth once daily Multivitamin Active 1 TABLET PO DAILY November 29, 2018 2:28pm Start: 11-29-2018 take 1 tablet by shelly th once daily Multivitamin Active 1 TABLET PO DAILY November 29, 2018 1:00am Multivitamin tablet (4 sources) Start: 11-29-2018 Multivitamin t ablet Active 1 {tbl} PO DAILY November 29, 2018 1:00am general health Start: 11-29-2018 Multivitamin t ablet Active 1 {tbl} PO DAILY November 29, 2018 1:00am nystatin [id number] unt/ml / triamcinolone acetonide 1 mg/ml topical cream (2 sources) Polyene Antifungal, Corticosteroid Start: 05-04-2024 End: 05-18-2024 nystatin-triamcinolone (MYCOLOG II) cream Indications: Dermatitis of lip , Angular cheilitis Apply to affected area two times a day for 14 days. 15 g 0 05/04/2024 05/18/2024 Active ondansetron 4 mg oral tablet (2 sources) Serotonin-3 Receptor Antagonist Start: 05-16-2020 take 1 tablet by mouth every twelve hours as needed ondansetron 4 MG tablet Take 1 tablet by mouth every 12 hours as needed for Nausea or Vomiting. 10 tablet 0 05/16/2020 Active oseltamivir 75 mg oral capsule (3 sources) Neuraminidase Inhibitor Start: 11-23-2024 End: 11-28-2024 take 1 capsule by mouth twice daily oseltamivir (TAMIFLU) 75 mg capsule Indications: Influenza A Take 1 capsule by mouth two times a day for 5 days. 10 capsule 11/23/2024 11/28/2024 Discontinued (Course of therapy completed) Completed/Discontinued Medications Medication Drug Class(es) Dates Sig (Normalized) Sig (Original) acetaminophen 325 mg / HYDROcodone bitartrate 5 mg oral tablet (7 sources) Opioid Agonist Start: 12-28-2018 End: 12-30-2018 Hydrocodone-Acetamino phen 1 TABLET tablet Discontinued 1 {tbl} PO EVERY 4 HOURS NEEDED as needed for Pain 8 2 0 December 28, 2018 12:00am December 29, 2018 12:00am December 30, 2018 12:08am Postoperative pain Other acute postprocedural pain Start: 12-28-2018 End: 12-30-2018 take 1 tablet by mouth every four hours as needed Hydrocodone-Acetaminophen Discontinued 1 TABLET PO EVERY 4 HOURS NEEDED 8 2 December 28, 2018 12:00am December 30, 2018 12:08am acetaminophen 325 mg / oxyCODONE hydrochloride 5 mg oral tablet (7 sources) Opioid Agonist Start: 02-28-2020 End: 03-06-2020 Oxycodone-Acetaminophen 1 TABLET tablet Discontinued 1 - 2 {tbl} PO EVERY 6 HOURS NEEDED as needed for Pain 15 7 0 February 28, 2020 March 05, 2020 12:00am March 06, 2020 12:02am Other acute postprocedural pain Start: 02-28-2020 End: 03-06-2020 take 1 tablet by mouth every six hours as needed Oxycodone-Acetaminophen Discontinued 1 - 2 TABLET PO EVERY 6 HOURS NEEDED 15 7 February 28, 2020 March 06, 2020 12:02am amLODIPine 5 mg oral tablet (7 sources) Dihydropyridine Calcium Channel Cain Start: 01-05-2025 End: 01-10-2025 take 0.5 tablet by mouth once daily amLODIPine (NORVASC) 5 mg tablet Take 0.5 tablets by mouth once daily. 45 tablet 01/05/2025 01/10/2025 Discontinued (Other) Start: 12-21-2024 End: 01-13-2025 take 1 tablet by mouth once daily Amlodipine 10 mg tablet Discontinued 10 mg PO DAILY 90 0 December 21, 2024 1:00am January 13, 2025 12:35pm benzonatate 100 mg oral capsule (6 sources) Non-narcotic Antitussive Start: 12-12-2024 End: 12-19-2024 take 1 capsule by mouth three times daily as needed for cough benzonatate (TESSALON PERLE) 100 mg capsule Indications: Acute pharyngitis, unspecified etiology Take 1 capsule by mouth three times a day as needed for cough for up to 7 days. 21 capsule 12/12/2024 12/19/2024 ciprofloxacin 500 mg oral tablet (10 sources) Quinolone Antimicrobial Start: 12-21-2024 End: 01-10-2025 take 1 tablet by mouth every twelve hours ciprofloxacin HCl (CIPRO) 500 mg tablet Take 1 tablet by mouth every 12 hours. 12/21/2024 01/10/2025 Discontinued (Other) Start: 12-21-2024 End: 01-13-2025 take 1 tablet by mouth twice daily Ciprofloxacin Hcl (Cipro) 500 mg tablet Discontinued 500 mg PO TWICE A DAY 14 0 December 21, 2024 1:00am January 13, 2025 12:37pm docusate sodium 50 mg oral capsule (2 sources) Start: 05-16-2020 End: 05-21-2021 take 1 capsule by mouth twice daily as needed for constipation docusate sodium 50 MG capsule Take 1 capsule by mouth 2 times daily as needed for Constipation. 10 capsule 1 05/16/2020 05/21/2021 Discontinued (Therapy completed) iv contrast (will be provided with radiology test) (3 sources) Start: 01-31-2025 End: 02-01-2025 iv contrast (will be provided with radiology test) CT Chest PE -Inject, intravenously, once for 1 dose.No IV access, insert saline lock prior to the beginning of sedation, infusion, injection of imaging exam. Discontinue saline lock post exam. If Pt. has a central line or IVAD, may access for administration according to line specific nursing protocol. Once exam is complete flush line and de-access according to line specific nursing protocol in the CT contrast administration guidelines link. 1 each 01/31/2025 02/01/2025 Start: 01-31-2025 End: 02-01-2025 iv contrast (will be provide d with radiology test) CT Chest PE -Inject, intravenously, once for 1 dose.No IV access, insert saline lock prior to the beginning of sedation, infusion, injection of imaging exam. Discontinue saline lock post exam. If Pt. has a central line or IVAD, may access for administration according to line specific nursing protocol. Once exam is complete flush line and de-access according to line specific nursing protocol in the CT contrast administration guidelines link. 1 each 01/31/2025 02/01/2025 Active Start: 01-26-2025 End: 01-27-2025 iv contrast (will be provide d with radiology test) Indications: Iron deficiency anemia, unspecified iron deficiency anemia type , Malignant neoplasm of central portion of right breast in female, estrogen receptor positive (HCC) , Pleural effusion CT Chest ABD/PEL-Inject, intravenously, once for 1 dose.No IV access, insert saline lock prior to the beginning of sedation, infusion, injection of imaging exam. Discontinue saline lock post exam. If Pt. has a central line or IVAD, may access for administration according to line specific nursing protocol. Once exam is complete flush line and de-access according to line specific nursing protocol in the CT contrast administration guidelines link. 1 each 01/26/2025 01/27/2025 Active Lactobacillus acidophilus (3 sources) Start: 01-13-2025 End: 02-03-2025 Lactobacillus acidophilus (Acidophilus) Discontinued 1 {tbl} PO DAILY January 13, 2025 12:00am February 03, 2025 2:38pm Start: 01-13-2025 Lactobacillus acidophilus Active 1 {tbl} PO DAILY January 13, 2025 12:00am lisinopril 10 mg oral tablet (12 sources) Angiotensin Converting Enzyme Inhibitor Start: 12-21-2024 End: 02-03-2025 take 1 tablet by mouth once daily Lisinopril 10 mg Tablet Discontinued 10 mg PO DAILY 60 0 December 21, 2024 1:00am February 03, 2025 2:37pm 24 hr metoprolol succinate 25 mg extended release oral tablet (1 source) beta-Adrenergic Cain Start: 01-23-2025 End: 01-23-2025 take 0.5 tablet by mouth once daily metoprolol succinate ER (TOPROL XL) 25 mg 24 hr tablet Indications: Tachycardia Take 0.5 tablets by mouth once daily. 15 tablet 1 01/23/2025 01/23/2025 Discontinued metroNIDAZOLE 500 mg oral tablet (7 sources) Nitroimidazole Antimicrobial Start: 12-21-2024 End: 01-13-2025 take 1 tablet by mouth three times daily Metronidazole 500 mg tablet Discontinued 500 mg PO THREE TIMES A DAY 42 14 0 December 21, 2024 1:00am January 13, 2025 12:38pm naproxen 250 mg oral tablet (7 sources) Nonsteroidal Anti-inflammatory Drug Start: 02-28-2020 End: 03-26-2020 take 250-500 mg by mouth every eight hours as needed for pain Naproxen 250 MG tablet Discontinued 250 - 500 mg PO EVERY 8 HOURS NEEDED as needed for MILD PAIN 30 1 February 28, 2020 12:00am March 26, 2020 2:55pm oxyCODONE hydrochloride 5 mg oral tablet (6 sources) Opioid Agonist Start: 12-21-2024 End: 01-13-2025 take 1 tablet by mouth every four hours as needed for pain Oxycodone 5 mg Tablet Discontinued 5 mg PO EVERY 4 HOURS NEEDED as needed for Pain Score 6-10 20 5 0 December 21, 2024 January 13, 2025 12:38pm Pyogenic arthritis of right shoulder region Pyogenic arthritis of left wrist Pyogenic arthritis of left shoulder region Pyogenic arthritis, unspecified Start: 09-28-2020 take 1 tablet by shelly th every six hours as needed oxyCODONE 5 MG tablet Indications: S/P reconstruction procedure Take 1 tablet by mouth every 6 hours as needed for up to 3 days. 12 tablet 0 09/28/2020 Active predniSONE 10 mg oral tablet (20 sources) Start: 12-15-2024 End: 12-24-2024 predniSONE (DELTASONE) 10 mg tablet Indications: Rheumatoid arthritis flare (HCC) , Acute pain of both shoulders , Swelling of left wrist , Arthralgia, unspecified joint Take 4 tabs daily for 3 days, then 2 tabs daily for 3 days, then 1 tab daily for 3 days with food. 21 tablet 12/15/2024 12/24/2024 Start: 12-15-2024 End: 12-21-2024 take 2 tablets by mouth twice daily Prednisone 10 mg tablet Discontinued 20 mg PO TWICE A DAY December 15, 2024 1:00am December 21, 2024 2:22pm swollen neck Start: 12-12-2024 End: 12-21-2024 take 1 tablet by mouth twice daily Prednisone 20 mg tablet Discontinued 20 mg PO TWICE A DAY December 15, 2024 1:00am December 21, 2024 2:22pm swollen neck Start: 08-07-2020 End: 05-21-2021 predniSONE (DELTASONE) 2.5 M G tablet Take 1 tablet by mouth 2 times daily ( can increase to TID PRN for flares) 180 tablet 2 08/07/2020 Active Start: 11-02-2017 End: 07-09-2021 take 2.5 mg by mouth twice daily Prednisone 10 mg tablet Discontinued 2.5 mg PO TWICE A DAY November 02, 2017 1:00am July 09, 2021 2:45pm Start: 11-02-2017 End: 07-09-2021 take 2.5 mg by mouth twice daily Prednisone Discontinued 2.5 MG PO TWICE A DAY November 02, 2017 1:00am July 09, 2021 2:45pm sennosides, shelter 8.6 mg oral tablet (2 sources) Start: 09-28-2020 End: 05-21-2021 take 1 tablet by mouth once daily at dinner senna 8.6 MG tablet Take 1 tablet by mouth daily with dinner. 30 tablet 0 09/28/2020 05/21/2021 Discontinued (Therapy completed) vitamin a 2.4 mg oral capsule (9 sources) Vitamin A Start: 07-09-2021 End: 01-07-2022 Vitamin A 2,400 mcg capsule Discontinued 2400 ug PO DAILY July 09, 2021 12:00am January 07, 2022 3:50pm vitamin A 2400 M CG (8000 UT) capsule Take 8,000 Units by mouth daily every morning. 0 Active Problems Active Problems Problem Classification Problem Date Documented Da te Episodic/Chronic Acquired foot deformities (1 source) Hammer toe; Translations: [Other hammer toe(s) (acquired), right foot] 04-12-2024 Chronic Allergic reactions (1 source) Disorder of lip; Translations: [Dermatitis, unspecified] 05-04-2024 Episodic Bacterial infection; unspecified site (8 sources) Bacteremia caused by Gram-negative bacteria; Translations: [Bacteremia] Onset: 12-21-2024 12-19-2024 Episodic Cancer of breast (20 sources) Malignant neoplasm of central portion of right female breast; Translations: [Malignant neoplasm of unspecified site of unspecified female breast] Onset: 12-23-2018 01-05-2019 Chronic Complications of surgical procedures or medical care (4 sources) Postoperative seroma; Translations: [Seroma complicating a procedure] 12-27-2024 Episodic Deficiency and other anemia (10 sources) Anemia; Translations: [Anemia, unspecified] Onset: 09-25-2020 09-30-2020 Episodic Deficiency and other anemia (7 sources) Iron deficiency anemia; Translations: [Iron deficiency anemia, unspecified] 01-24-2025 Episodic Deficiency and other anemia (1 source) Iron deficiency anemia, unspecified; Translations: [Iron deficiency anemia, unspecified iron deficiency anemia type] Onset: 02-07-2025 Episodic Diseases of mouth; excluding dental (1 source) Angular cheilitis; Translations: [Diseases of lips] 05-04-2024 Episodic Essential hypertension (3 sources) Essential hypertension; Translations: [Essential (primary) hypertension] Onset: 01-10-2025 01-10-2025 Chronic Fever of unknown origin (7 sources) Fever; Translations: [Fever presenting with conditions classified elsewhere] Onset: 12-27-2024 12-27-2024 Episodic Fluid and electrolyte disorders (11 sources) Dehydration; Translations: [Dehydration] Onset: 12-21-2024 12-16-2024 Episodic Gastrointestinal hemorrhage (16 sources) Hematochezia; Translations: [Melena] Onset: 01-23-2025 01-23-2025 Episodic Immunity disorders (15 sources) Immunosuppression; Translations: [Immunodeficiency, unspecified] Onset: 12-21-2024 Chronic Comment on above: annual paps while on treatment Immunizations and screening for infectious disease (11 sources) Contact with and (suspected) exposure to other viral communicable diseases; Translations: [Contact with or suspected exposure to other viral communicable disease] Onset: 12-15-2024 07-09-2021 Episodic Infective arthritis and osteomyelitis (except that caused by tuberculosis or sexually transmitted disease) (20 sources) Infective polyarthritis; Translations: [Polyarthritis due to other bacteria] Onset: 12-21-2024 12-27-2024 Episodic Influenza (9 sources) Influenza due to Influenza A virus; Translations: [Influenza due to other identified influenza virus with other respiratory manifestations] Onset: 12-21-2024 11-23-2024 Episodic Malaise and fatigue (16 sources) Malaise; Translations: [Other malaise] Onset: 12-15-2024 12-15-2024 Episodic Menopausal disorders (20 sources) Menopausal syndrome; Translations: [Menopausal and female climacteric states] Onset: 12-16-2013 12-16-2013 Chronic Mood disorders (7 sources) Dysthymia; Translations: [Dysthymic disorder] 12-31-2020 Chronic Comment on above: recommend counseling , discussed medication if needed, consider SSRI Nausea and vomiting (1 source) Nausea; Translations: [Nausea] 12-15-2024 Episodic Other bone disease and musculoskeletal deformities (2 sources) Other specified disorders of bone, unspecified site; Translations: [Other specified disorders of bone, unspecified site] Onset: 01-14-2019 Episodic Other circulatory disease (2 sources) Finding of sensation of pharynx; Translations: [Other specified symptoms and signs involving the circulatory and respiratory systems] 12-15-2024 Episodic Other circulatory disease (1 source) Low blood pressure; Translations: [Hypotension, unspecified] 01-10-2025 Episodic Other connective tissue disease (7 sources) Pain in calf; Translations: [Pain in right lower leg] 01-21-2018 Episodic Other connective tissue disease (1 source) H/O: arthritis; Translations: [Personal history of other diseases of the musculoskeletal system and connective tissue] 02-14-2025 Episodic Other connective tissue disease (1 source) Personal history of other diseases of the musculoskeletal system and connective tissue; Translations: [History of septic arthritis] Onset: 02-14-2025 Episodic Other gastrointestinal disorders (6 sources) Oropharyngeal dysphagia; Translations: [Dysphagia, oropharyngeal phase] 12-15-2024 Episodic Other hematologic conditions (1 source) ESR raised; Translations: [Elevated erythrocyte sedimentation rate] 01-31-2025 Episodic Other lower respiratory disease (1 source) Cough; Translations: [Acute cough] 08-15-2023 Episodic Other lower respiratory disease (2 sources) Breathing painful; Translations: [Chest pain on breathing] 12-15-2024 Episodic Other lower respiratory disease (1 source) Dyspnea; Translations: [Shortness of breath] 01-31-2025 Episodic Other lower respiratory disease (1 source) H/O: pneumonia; Translations: [Personal history of pneumonia (recurrent)] 02-14-2025 Episodic Other lower respiratory disease (1 source) Personal history of pneumonia (recurrent); Translations: [History of pneumonia] Onset: 02-14-2025 Episodic Other non-traumatic joint disorders (5 sources) Joint pain; Translations: [Pain in unspecified joint] 12-15-2024 Episodic Other non-traumatic joint disorders (1 source) Shoulder pain; Translations: [Pain in right shoulder] 12-15-2024 Episodic Other non-traumatic joint disorders (1 source) Swelling of upper limb; Translations: [Effusion, left wrist] 12-15-2024 Episodic Other non-traumatic joint disorders (8 sources) Pain in right shoulder; Translations: [Acute pain of right shoulder] Onset: 12-21-2024 12-17-2024 Episodic Other non-traumatic joint disorders (8 sources) Pain in left shoulder; Translations: [Acute pain of left shoulder] Onset: 12-21-2024 12-15-2024 Episodic Other screening for suspected conditions (not mental disorders or infectious disease) (10 sources) Patient encounter status; Translations: [Encounter for screening for malignant neoplasm of intestinal tract, unspecified] Onset: 02-01-2025 12-31-2020 Episodic Other skin disorders (1 source) Nail deformity; Translations: [Other nail disorders] 02-15-2024 Episodic Other skin disorders (2 sources) Dystrophia unguium; Translations: [Nail dystrophy] 04-12-2024 Episodic Other upper respiratory disease (1 source) Nasal sinus problem; Translations: [Other specified disorders of nose and nasal sinuses] 08-18-2023 Episodic Pleurisy; pneumothorax; pulmonary collapse (18 sources) Pleural effusion; Translations: [Pleural effusion, not elsewhere classified] Onset: 01-10-2025 01-10-2025 Episodic Pneumonia (except that caused by tuberculosis or sexually transmitted disease) (7 sources) Pleural effusion associated with pulmonary infection; Translations: [Pneumonia, unspecified organism] Onset: 03-28-2025 02-14-2025 Episodic Residual codes; unclassified (8 sources) Breast cancer genetic marker of susceptibility positive; Translations: [Genetic susceptibility to malignant neoplasm of breast] 01-07-2022 Episodic Comment on above: s/p bl mastectomy an d rrBSO, BRCA 2, Deleterious mutation PALB2. Residual codes; unclassified (3 sources) Genetic susceptibility to malignant neoplasm of breast; Translations: [Genetic susceptibility to malignant neoplasm of breast] Episodic Residual codes; unclassified (6 sources) Chill; Translations: [Chills (without fever)] 12-15-2024 Episodic Rheumatoid arthritis and related disease (20 sources) Rheumatoid arthritis of multiple joints; Translations: [Rheumatoid arthritis] Onset: 01-25-2018 01-25-2018 Chronic Unclassified (3 sources) [facility] office if/as available Past or Other Problems Problem Classification Problem Date Documented Da te Episodic/Chronic Cancer of breast (8 sources) History of malignant neoplasm of breast; Translations: [Personal history of malignant neoplasm of breast] Onset: 12-15-2024 12-15-2024 Episodic Cardiac dysrhythmias (5 sources) Tachycardia; Translations: [Tachycardia, unspecified] Onset: 01-10-2025 01-10-2025 Episodic Deficiency and other anemia (1 source) Anemia, unspecified; Translations: [Anemia, unspecified type] Onset: 01-13-2025 Episodic Lymphadenitis (8 sources) Lymphadenopathy; Translations: [Generalized enlarged lymph nodes] Onset: 12-15-2024 12-15-2024 Episodic Other circulatory disease (1 source) Hypotension, unspecified; Translations: [Hypotension, unspecified hypotension type] Onset: 01-10-2025 Episodic Other circulatory disease (1 source) Other specified symptoms and signs involving the circulatory and respiratory systems; Translations: [Throat fullness] Onset: 12-15-2024 Episodic Other gastrointestinal disorders (1 source) Dysphagia, oropharyngeal phase; Translations: [Oropharyngeal dysphagia] Onset: 12-15-2024 Episodic Other lower respiratory disease (1 source) Chest pain on breathing; Translations: [Painful breathing] Onset: 12-15-2024 Episodic Other non-traumatic joint disorders (1 source) Pain in unspecified joint; Translations: [Arthralgia, unspecified joint] Onset: 12-15-2024 Episodic Other skin disorders (1 source) Nail dystrophy; Translations: [Onychodystrophy] Onset: 06-17-2024 Episodic Other upper respiratory infections (12 sources) Streptococcal sore throat; Translations: [Streptococcal pharyngitis] Onset: 12-15-2024 12-17-2023 Episodic Residual codes; unclassified (3 sources) Estrogen receptor positive status [ER+]; Translations: [ESTROGEN RECEPTOR POSITIVE STATUS] Onset: 12-23-2018 Episodic Residual codes; unclassified (2 sources) Bilateral acquired absence of breast; Translations: [Acquired absence of bilateral breasts and nipples] Onset: 10-09-2020 10-09-2020 Episodic Residual codes; unclassified (1 source) Chills (without fever); Translations: [Chills (without fever)] Onset: 12-15-2024 Episodic Superficial injury; contusion (1 source) Seroma; Translations: [Contusion of abdominal wall, initial encounter] Episodic Unclassified (3 sources) Finding of sensation of pharynx 12-15-2024 Unclassified (2 sources) Malignant neoplasm of central portion of right breast in female, estrogen receptor positive (HCC) 01-27-2025 Results Test Name Value Interpretation Reference Range Facility [facility] 04-27-2025 CNPN Telephone (PULMWS) BECKY HUFFMAN ([id number]) 1970 F Date Time Provider Department 04/27/25 COY LOOMIS During your visit today, we recorded the following information about you: Gunnar Neves LPN 04/27/2025 2:45 PM Signed Shabnam with office of Dr. Corral and Padma Michaud NP to request recent office visit notes to be faxed to: . MAR Palmer Kimberly, LPN 04/27/2025 2:45 PM Signed Faxed notes. MAR Palmer Brittney, RN 05/02/2025 2:23 PM Signed Call received from Padma Lilly CNP office staff to request OV notes from 04/14/2025 with Coy Loomis APRN.RAY. Notified them that notes were faxed on 04/27/2025, but she states notes were not received. OV note from 04/14/2025 faxed both electronically through [employer] to and through fax machine. Fax confirmation received. Ely Mcneil RN May 02, 2025 2:23 PM Allergies As of Date: 04/27/2025 (No Known Allergies) Date Reviewed: 04/14/2025 Reviewed by: Coy Loomis APRN.CNP - Fully Assessed Reason for Visit: Request Outside Medical Records [[id number]] Prescriptions as of 05/02/2025 - ascorbic acid, vitamin C, (VITAMIN C) 500 mg tablet Take 1 tablet by mouth every Thursday, Thursday, and Thursday. - anastrozole (ARIMIDEX) 1 mg tablet Take 1 tablet by mouth once daily. - hydrOXYchloroQUINE (PLAQUENIL) 200 mg tablet Take 200 mg by mouth once daily. - cholecalciferol, vitamin D3, (VITAMIN D3 ORAL) Take 2,000 Units by mouth once daily. - certolizumab pegol (CIMZIA SUBCUTANEOUS) Inject 200 mg subcutaneously. Twice a month - calcium carbonate/vitamin D3 (CALCIUM 600 + D ORAL) Take 1 tablet by mouth once daily. - leflunomide (ARAVA) 20 mg tablet Take 20 mg by mouth once daily. - ferrous sulfate 325 mg (65 mg iron) tablet Take 325 mg by mouth once daily. - DAILY MULTIVITAMIN TAB Take 1 tablet by mouth once daily. Problem List As Of Date 04/27/2025 Noted Resolved Climacteric [N95.1] 12/16/2013 Malignant neoplasm of central portion of right *12/23/2018 Rheumatoid arthritis involving multiple sites (*05/20/2021 Encounter Status:Closed by GUNNAR NEVES on 04/27/25 [facility] 04-14-2025 CNOV Office Visit (PULMWS ) BECKY HUFFMAN ([id number]) 1970 F Date Time Provider Department 04/14/25 10:00 AM COY LOOMIS PULCaioWS During your visit today, we recorded the following information about you: Pulse Respiration Blood pressure Weight 59/minute 18/minute 122/76 59 kg Coy Loomis APRN.CNP 04/18/2025 4:17 PM Signed Pulmonary Medicine Patients name: Becky Huffman PCP: Becky Ireland APRN.RAY CC: follow-up HPI: Becky Huffman is a 54 year old female non-smoker with PMH significant for history of right breast cancer, BRCA positive s/p bilateral mastectomy, radiation and anastrozole, rheumatoid arthritis diagnosed age 38, diverticulosis. New patient 02/14/25 for pleural effusion. Had hospitalization in late November d/t influenza, pneumonia, pleural effusion, bacteremia and septic arthritis. Was supposed to have thoracentesis on 02/07 but it was canceled d/t feeling the effusion was not large enough to drain. She was started on Augmentin for 3 weeks after her RAMON and completed follow-up chest xray on 03/28. Review of chest xray shows hazy opacity in area of previous effusion. Not currently on inhaled therapy. She presents today for follow-up. Since her last visit, she reports feeling well. She completed 3 week course of Augmentin. Has been able to resume normal activity as far as work and exercise. Denies cough, wheezing or chest tightness. Having some exertional dyspnea but has been gradually improving. Has the continued complaint of a catch in her right ribs but is not as frequent compared to prior. Denies fevers, chills, body aches and night sweats. She had chest xray on 03/28 with possible hazy opacity in the right lower lung. Holding biologic therapy (Cimzia) d/t recent infection but per insurance and benefits clerk, will remain off therapy at this time as she currently denies joint pain. PAST MEDICAL HISTORY Diagnosis Date Breast cancer ([facility]) 2018 PMH - PAST MEDICAL HISTORY OF FATIGUE PMH - PAST MEDICAL HISTORY OF achy joints Premenstrual tension syndromes PMS Rheumatoid arthritis involving multiple sites ([facility]) 05/20/2021 Rheumatoid arthritis(714.0) Allergies: No Known Allergies Medication List Accurate as of April 13, 2025 2:02 PM. If you have any questions, ask your nurse or doctor. CONTINUE taking these medications anastrozole 1 mg tablet Commonly known as: ARIMIDEX Take 1 tablet by mouth once daily. ascorbic acid (vitamin C) 500 mg tablet Commonly known as: VITAMIN C Take 1 tablet by mouth every Thursday, Thursday, and Thursday. CALCIUM 600 + D ORAL CIMZIA SQ DAILY MULTIVITAMIN tablet Generic drug: multivitamin ferrous sulfate 325 mg (65 mg iron) tablet hydrOXYchloroQUINE 200 mg tablet Commonly known as: PLAQUENIL leflunomide 20 mg tablet Commonly known as: ARAVA VITAMIN D3 PO DATA: I personally reviewed and analyzed all labs, radiographs and available pulmonary function testing CXR: 03/28/2025 CT Chest: 01/2025 IMPRESSION: 1. Unchanged small loculated right pleural effusion 2. No new suspicious pulmonary nodules 3. No thoracic lymphadenopathy Tourist Adviser: PSCB Transcribe Date/Time: Feb 14 2025 2:52P Dictated by : IAN OLVERA MD This examination was interpreted and the report reviewed and electronically signed by: IAN OLVREA MD on Feb 14 2025 3:23PM EST Review of Systems Constitutional: Negative for activity change, appetite change and unexpected weight change. HENT: Negative for congestion and postnasal drip. Respiratory: Positive for shortness of breath. Negative for cough, chest tightness and wheezing. Cardiovascular: Negative for chest pain, palpitations and leg swelling. Neurological: Negative for weakness. BP 122/76 Pulse (!) 59 Resp 18 Wt 59 kg (130 lb) LMP 12/04/2016 SpO2 100% BMI 21.02 kg/m? Physical Exam Vitals reviewed. Constitutional: General: She is not in acute distress. Appearance: Normal appearance. She is not ill-appearing. HENT: Head: Normocephalic. Cardiovascular: Rate and Rhythm: Normal rate and regular rhythm. Pulses: Normal pulses. Pulmonary: Effort: Pulmonary effort is normal. No respiratory distress. Breath sounds: No wheezing or rhonchi. Musculoskeletal: Right lower leg: No edema. Left lower leg: No edema. Skin: General: Skin is warm and dry. Capillary Refill: Capillary refill takes less than 2 seconds. Neurological: General: No focal deficit present. Mental Status: She is alert. ASSESSMENT/PLAN: 1. Parapneumonic effusion - ICD9: 511.89, ICD10: J18.9, J91.8 (primary diagnosis) - s/p Augmentin x3 weeks. - stable exam and vital signs - chest xray not suggestive of resolution. - will obtain chest CT 2. Rheumatoid arthritis involving multiple sites with positive rheumatoid factor (HCC) - ICD9: 714.0, ICD10: M05.79 - Cimzia held d/t (more content not included)... Normal [facility] 04-12-2025 RAYN Telephone (PULMWS) DEREKBECKY HAYDEN ([id number]) 1970 F Date Time Provider Department 04/12/25 COY LOOMIS During your visit today, we recorded the following information about you: Brianda Rose MA 04/12/2025 2:18 PM Signed Received a call from this patients Rheumatology office. They are asking to speak directly with Coy Loomis. Attempted to reach office via phone. No answer. Office can be reached back at [phone]. Coy Loomis APRN.RAY 04/12/2025 3:13 PM Signed Returned call and spoke with patients provider. Coy Loomis APRN.ATMOSPHERIC CHEMIST Allergies As of Date: 04/12/2025 (No Known Allergies) Date Reviewed: 02/14/2025 Reviewed by: Austen Carter MD - Fully Assessed Reason for Visit: Talk to provider [Other] Prescriptions as of 04/12/2025 - ascorbic acid, vitamin C, (VITAMIN C) 500 mg tablet Take 1 tablet by mouth every Thursday, Thursday, and Thursday. - anastrozole (ARIMIDEX) 1 mg tablet Take 1 tablet by mouth once daily. - hydrOXYchloroQUINE (PLAQUENIL) 200 mg tablet Take 200 mg by mouth once daily. - cholecalciferol, vitamin D3, (VITAMIN D3 ORAL) Take 2,000 Units by mouth once daily. - certolizumab pegol (CIMZIA SUBCUTANEOUS) Inject 200 mg subcutaneously. Twice a month - calcium carbonate/vitamin D3 (CALCIUM 600 + D ORAL) Take 1 tablet by mouth once daily. - leflunomide (ARAVA) 20 mg tablet Take 20 mg by mouth once daily. - ferrous sulfate 325 mg (65 mg iron) tablet Take 325 mg by mouth once daily. - DAILY MULTIVITAMIN TAB Take 1 tablet by mouth once daily. Problem List As Of Date 04/12/2025 Noted Resolved Climacteric [N95.1] 12/16/2013 Malignant neoplasm of central portion of right *12/23/2018 Rheumatoid arthritis involving multiple sites (*05/20/2021 Encounter Status:Closed by COY LOOMIS on 04/12/25 [facility] 04-05-2025 CNPN Telephone (PULMWS) BECKY HUFFMAN ([id number]) 1970 F Date Time Provider Department 04/05/25 COY LOOMIS PULCaioWS During your visit today, we recorded the following information about you: Benita Celeste 04/05/2025 10:33 AM Signed Patient called back to r/s cancelled appointment today and declined 04/07/25. Next opening is the end of April and upset this is the next opening in the department and asked that we send a note to provider asking if she needs this follow up as she reviewed her results on line, please advise the patient. Benita Celeste 04/07/2025 2:02 PM Signed Appears we have that slot on hold for her and waiting for a return call to see if she can take it due to work. Marvin Johnson LPN 04/10/2025 10:36 AM Signed Pt. accepted time slot. Scheduled. Marvin Johnson LPN Allergies As of Date: 04/05/2025 (No Known Allergies) Date Reviewed: 02/14/2025 Reviewed by: Austen Cartre MD - Fully Assessed Reason for Visit: Patient Question [6307] Prescriptions as of 04/10/2025 - ascorbic acid, vitamin C, (VITAMIN C) 500 mg tablet Take 1 tablet by mouth every Thursday, Thursday, and Thursday. - anastrozole (ARIMIDEX) 1 mg tablet Take 1 tablet by mouth once daily. - hydrOXYchloroQUINE (PLAQUENIL) 200 mg tablet Take 200 mg by mouth once daily. - cholecalciferol, vitamin D3, (VITAMIN D3 ORAL) Take 2,000 Units by mouth once daily. - certolizumab pegol (CIMZIA SUBCUTANEOUS) Inject 200 mg subcutaneously. Twice a month - calcium carbonate/vitamin D3 (CALCIUM 600 + D ORAL) Take 1 tablet by mouth once daily. - leflunomide (ARAVA) 20 mg tablet Take 20 mg by mouth once daily. - ferrous sulfate 325 mg (65 mg iron) tablet Take 325 mg by mouth once daily. - DAILY MULTIVITAMIN TAB Take 1 tablet by mouth once daily. Problem List As Of Date 04/05/2025 Noted Resolved Climacteric [N95.1] 12/16/2013 Malignant neoplasm of central portion of right *12/23/2018 Rheumatoid arthritis involving multiple sites (*05/20/2021 Encounter Status:Closed by MARVIN JOHNSON on 04/10/25 Normal [facility] XR CHEST 2V FRONTAL/LATon XR CHEST 2V FRONTAL/LAT * * *Final Repor t* * * DATE OF EXAM: Mar 28 2025 1:56PM [id number] - XR CHEST 2V FRONTAL/LAT / PROCEDURE REASON: multiple diagnoses * * * * Physician Interpretation * * * * EXAMINATION: CHEST RADIOGRAPH (2 VIEW FRONTAL and LATERAL) CLINICAL HISTORY: Parapneumonic effusion Parapneumonic effusion MQ: XC2_6 EXAM DATE/TIME: 03/28/2025 1:56 PM COMPARISON: Chest x-ray on 01/10/2025 RESULT: Lines, tubes, and devices: None. Lungs and pleura: Questionable hazy opacity overlying the right lower lung, presumably representing loculated pleural effusion. The left lung is clear. No left-sided pleural effusion or pneumothorax. Cardiomediastinal silhouette: Normal cardiomediastinal silhouette. Bones and soft tissues: Unremarkable. IMPRESSION: Findings as described above. Tourist Adviser: JAEL Transcribe Date/Time: Mar 28 2025 5:24P Dictated by : ASTRID LEYVA MD This examination was interpreted and the report reviewed and electronically signed by: ASTRID LEYVA MD on Mar 28 2025 5:26PM EST [id number] Normal [facility] XR Chest PA and Lateralon IMPRESSION: Findings as described above. Tourist Adviser: JAEL Transcribe Date/Time: Mar 28 2025 5:24P Dictated by : ASTRID LEYVA MD This examination was interpreted and the report reviewed and electronically signed by: ASTRID LEYVA MD on Mar 28 2025 5:26PM EST DIVISION OF RADIOLOGY * * *Final Report* * * DATE OF EXAM: Mar 28 2025 1:56PM [id number] - XR CHEST 2V FRONTAL/LAT / PROCEDURE REASON: multiple diagnoses * * * * Physician Interpretation * * * * EXAMINATION: CHEST RADIOGRAPH (2 VIEW FRONTAL & LATERAL) CLINICAL HISTORY: Parapneumonic effusion Parapneumonic effusion MQ: XC2_6 EXAM DATE/TIME: 03/28/2025 1:56 PM COMPARISON: Chest x-ray on 01/10/2025 RESULT: Lines, tubes, and devices: None. Lungs and pleura: Questionable hazy opacity overlying the right lower lung, presumably representing loculated pleural effusion. The left lung is clear. No left-sided pleural effusion or pneumothorax. Cardiomediastinal silhouette: Normal cardiomediastinal silhouette. Bones and soft tissues: Unremarkable. DIVISION OF RADIOLOGY Provider, [facility] - 03/28/2025 * * *Final Report* * * DATE OF EXAM: Mar 28 2025 1:56PM [id number] - XR CHEST 2V FRONTAL/LAT / PROCEDURE REASON: multiple diagnoses * * * * Physician Interpretation * * * * EXAMINATION: CHEST RADIOGRAPH (2 VIEW FRONTAL & LATERAL) CLINICAL HISTORY: Parapneumonic effusion Parapneumonic effusion MQ: XC2_6 EXAM DATE/TIME: 03/28/2025 1:56 PM COMPARISON: Chest x-ray on 01/10/2025 RESULT: Lines, tubes, and devices: None. Lungs and pleura: Questionable hazy opacity overlying the right lower lung, presumably representing loculated pleural effusion. The left lung is clear. No left-sided pleural effusion or pneumothorax. Cardiomediastinal silhouette: Normal cardiomediastinal silhouette. Bones and soft tissues: Unremarkable. IMPRESSION IMPRESSION: Findings as described above. Tourist Adviser: JAEL Transcribe Date/Time: Mar 28 2025 5:24P Dictated by : ASTRID LEYVA MD This examination was interpreted and the report reviewed and electronically signed by: ASTRID LEYVA MD on Mar 28 2025 5:26PM [facility] Radiology Study observation (narrative) Patel borjas [facility] XR Chest PA and LateralOrder ed By: Ccf Provider on 03-28-2025 [facility] CNPNon 02-24-2025 CNPMoses Telephone (HEMAWS) BECKY HUFFMAN ([id number]) 1970 F Date Time Provider Department 02/24/25 SIS STOCKTON HEMAWS During your visit today, we recorded the following information about you: Jessica Knowles 02/24/2025 8:33 AM Signed Patient has reviewed labs from 02/23 and is requesting to speak to clinical. She said she feels fine, but is flying out of state today and would like to make sure everything is ok. Tracie Bray LPN 02/24/2025 9:13 AM Signed [facility] Taking Iron and Vit C MWF Leaving this afternoon to go out of state and returning Thursday. She is asking if current medications should remain the same, and if anything needs addressed before she leaves. MAR Coffman Brianna 02/24/2025 9:25 AM Signed Labs continue to improve. (Hgb will likely take a few months to recover from sepsis) Continue with PO iron and vit C MWF. Fran Gomez APRN.Radha Brewer LPN 02/24/2025 9:53 AM Signed Patient is aware of all information. Radha Perdomo LPN Allergies As of Date: 02/24/2025 (No Known Allergies) Date Reviewed: 02/14/2025 Reviewed by: Austen Carter MD - Fully Assessed Reason for Visit: Results [95] Prescriptions as of 02/24/2025 - amoxicillin-clavulanat e potassium (AUGMENTIN) 875-125 mg per tablet Take 1 tablet by mouth two times a day for 21 days. - ascorbic acid, vitamin C, (VITAMIN C) 500 mg tablet Take 1 tablet by mouth every Thursday, Thursday, and Thursday. - anastrozole (ARIMIDEX) 1 mg tablet Take 1 tablet by mouth once daily. - hydrOXYchloroQUINE (PLAQUENIL) 200 mg tablet Take 200 mg by mouth once daily. - cholecalciferol, vitamin D3, (VITAMIN D3 ORAL) Take 2,000 Units by mouth once daily. - certolizumab pegol (CIMZIA SUBCUTANEOUS) Inject 200 mg subcutaneously. Twice a month - calcium carbonate/vitamin D3 (CALCIUM 600 + D ORAL) Take 1 tablet by mouth once daily. - leflunomide (ARAVA) 20 mg tablet Take 20 mg by mouth once daily. - ferrous sulfate 325 mg (65 mg iron) tablet Take 325 mg by mouth once daily. - DAILY MULTIVITAMIN TAB Take 1 tablet by mouth once daily. Problem List As Of Date 02/24/2025 Noted Resolved Climacteric [N95.1] 12/16/2013 Malignant neoplasm of central portion of right *12/23/2018 Rheumatoid arthritis involving multiple sites (*05/20/2021 Encounter Status:Closed by RADHA PERDOMO on 02/24/25 Normal [facility] CBC W Auto Differential pane l (Bld)on 02-23-2025 Basophils (Bld) [#/Vol] 0.11 10*3/uL High <0.11 [facility] Comment on above: Order Comment: Speci men Type: BLOOD SPECIMENOrdering Facility: [facility] Address: [address] [place] [address] Performed By: #### 5 7021-8 ####[facility] [id number] [place] [address] [place] Basophils/100 WBC (Bld) 1.0 % Normal [facility] Comment on above: Order Comment: Speci men Type: BLOOD SPECIMENOrdering Facility: [facility] Address: [address] [place] [address] Performed By: #### 5 7021-8 ####[facility] GREGORIOALEXYS [id number] [place] [address] [place] Differential cell count method Nom (Bld) Auto Normal [facility] Comment on above: Order Comment: Speci men Type: BLOOD SPECIMENOrdering Facility: [facility] Address: [address] [place] [address] Performed By: #### 5 7021-8 ####[facility]ENTERNCISAIAS [id number] [place] [address] [place] Eosinophils (Bld) [#/Vol] 0.22 10*3/uL Normal <0.46 [facility] Comment on above: Order Comment: Speci men Type: BLOOD SPECIMENOrdering Facility: [facility] Address: [address] [place] [address] Performed By: #### 5 7021-8 ####[facility]ENTERNCLIA [id number] [place] [address] [place] Eosinophils/100 WBC (Bld) 2.0 % Normal [facility] Comment on above: Order Comment: Speci men Type: BLOOD SPECIMENOrdering Facility: [facility] Address: [address] [place] [address] Performed By: #### 5 7021-8 ####[facility]ENTERNCLIA [id number] [place] [address] [place] Erythrocyte distribution width (RBC) [Ratio] 15.7 % High 11.5-15.0 [facility] Comment on above: Order Comment: Speci men Type: BLOOD SPECIMENOrdering Facility: [facility] Address: [address] [place] [address] Performed By: #### 5 7021-8 ####[facility] MED[facility] CENTERLIA [id number] [place] [address] [place] Hematocrit (Bld) [Volume fraction] 32.0 % Low 36.0-46.0 [facility] Comment on above: Order Comment: Speci men Type: BLOOD SPECIMENOrdering Facility: [facility] Address: [address] [place] [address] Performed By: #### 5 7021-8 ####[facility] [id number] [place] [address] [place] Hemoglobin (Bld) [Mass/Vol] 10.0 g/dL Low 11.5-15.5 [facility] Comment on above: Order Comment: Speci men Type: BLOOD SPECIMENOrdering Facility: [facility] Address: [address] [place] [address] Performed By: #### 5 7021-8 ####[facility] [id number] [place] [address] [place] Immature granulocytes (Bld) [#/Vol] 0.03 10*3/uL Normal <0.10 [facility] Comment on above: Order Comment: Speci men Type: BLOOD SPECIMENOrdering Facility: [facility] Address: [address] [place] [address] Performed By: #### 5 7021-8 ####[facility] [id number] [place] [address] [place] Immature granulocytes/100 WBC (Bld) 0.3 % Normal [facility] Comment on above: Order Comment: Speci men Type: BLOOD SPECIMENOrdering Facility: [facility] Address: [address] [place] [address] Performed By: #### 5 7021-8 ####[facility]ENTERNCLI [id number] [place] [address] [place] Lymphocytes (Bld) [#/Vol] 3.50 10*3/uL Normal 1.00-4.00 [facility] Comment on above: Order Comment: Speci men Type: BLOOD SPECIMENOrdering Facility: [facility] Address: [address] [place] [address] Performed By: #### 5 7021-8 ####[facility]ENTERNCA [id number] [place] [address] [place] Lymphocytes/100 WBC (Bld) 31.9 % Normal [facility] Comment on above: Order Comment: Speci men Type: BLOOD SPECIMENOrdering Facility: [facility] Address: [address] [place] [address] Performed By: #### 5 7021-8 ####[facility] [id number] [place] [address] [place] MCH (RBC) [Entitic mass] 29.1 pg Normal 26.0-34.0 [facility] Comment on above: Order Comment: Speci men Type: BLOOD SPECIMENOrdering Facility: [facility] Address: [address] [place] [address] Performed By: #### 5 7021-8 ####[facility] [id number] [place] [address] [place] MCHC (RBC) [Mass/Vol] 31.3 g/dL Normal 30.5-36.0 [facility] Comment on above: Order Comment: Speci men Type: BLOOD SPECIMENOrdering Facility: [facility] Address: [address] [place], [place] [address] Performed By: #### 5 7021-8 ####[facility]ENTERNCLI [id number] [place] [address] [place] MCV (RBC) [Entitic vol] 93.0 fL Normal 80.0-100.0 C [facility] Comment on above: Order Comment: Speci men Type: BLOOD SPECIMENOrdering Facility: [facility] Address: [address] [place] [address] Performed By: #### 5 7021-8 ####[facility] GREGORIOFRANKLINVILLEPHILLLIA [id number] [place] [address] [place] Monocytes (Bld) [#/Vol] 1.22 10*3/uL High <0.87 [facility] Comment on above: Order Comment: Speci men Type: BLOOD SPECIMENOrdering Facility: [facility] Address: [address] [place] [address] Performed By: #### 5 7021-8 ####[facility] [id number] [place] [address] [place] Monocytes/100 WBC (Bld) 11.1 % Normal [facility] Comment on above: Order Comment: Speci men Type: BLOOD SPECIMENOrdering Facility: [facility] Address: [address] [place] [address] Performed By: #### 5 7021-8 ####[facility]ITALA [id number] [place] [address] [place] Neutrophils (Bld) [#/Vol] 5.88 10*3/uL Normal 1.45-7.50 [facility] Comment on above: Order Comment: Speci men Type: BLOOD SPECIMENOrdering Facility: [facility] Address: [address] [place] [address] Performed By: #### 5 7021-8 ####[facility]ENTERNCLIA [id number] [place] [address] [place] Neutrophils/100 WBC (Bld) 53.7 % Normal [facility] Comment on above: Order Comment: Speci men Type: BLOOD SPECIMENOrdering Facility: [facility] Address: [address] [place] [address] Performed By: #### 5 7021-8 ####[facility] HOSPITALSTEVENLIA [id number] [place] [address] [place] Nucleated RBC (Bld) [#/Vol] 10*3/uL Normal <0.01 [facility] Comment on above: Order Comment: Speci men Type: BLOOD SPECIMENOrdering Facility: [facility] Address: [address] [place] [address] Performed By: #### 5 7021-8 ####[facility] CENTERANGELA [id number] [place] [address] [place] Nucleated RBC/100 WBC (Bld) [Ratio] 0.0 /100 WBC Normal [facility] Comment on above: Order Comment: Speci men Type: BLOOD SPECIMENOrdering Facility: [facility] Address: [address] [place] [address] Performed By: #### 5 7021-8 ####[facility] [id number] [place] [address] [place] Platelet mean volume (Bld) [Entitic vol] 9.1 fL Normal 9.0-12.7 [facility] Comment on above: Order Comment: Speci men Type: BLOOD SPECIMENOrdering Facility: [facility] Address: [address] [place] [address] Performed By: #### 5 7021-8 ####[facility] CENTERCRISTIANEA [id number] [place] [address] [place] Platelets (Bld) [#/Vol] 426 10*3/uL High 150-400 [facility] Comment on above: Order Comment: Speci men Type: BLOOD SPECIMENOrdering Facility: [facility] Address: [address] [place] [address] Performed By: #### 5 7021-8 ####[facility]ENTERNCLIA [id number] [place] [address] [place] RBC (Bld) [#/Vol] 3.44 10*6/uL Low 3.90-5.20 [facility] Comment on above: Order Comment: Speci men Type: BLOOD SPECIMENOrdering Facility: [facility] Address: [address] [place] [address] Performed By: #### 5 7021-8 ####[facility] [id number] [place] [address] [place] WBC (Bld) [#/Vol] 10.96 10*3/uL Normal 3.70-11.00 [facility] Comment on above: Order Comment: Speci men Type: BLOOD SPECIMENOrdering Facility: [facility] Address: [address] [place] [address] Performed By: #### 5 7021-8 ####[facility]ENTERNCSANPET[facility] [id number] [place] [address] [place] Ferritin SerPl-ncon 2024 Ferritin [Mass/Vol] 488.0 ng/mL High 14.7-205.1 [facility] Comment on above: Order Comment: Speci men Type: BLOOD SPECIMENOrdering Facility: [facility] Address: [address] [place] [address] Performed By: #### 5 0190-8, 2276-4 ####[facility] LABCLIA [id number] [place] [address] [place] Iron and Iron binding capaci ty panelon 02-23-2025 Iron [Mass/Vol] 39 ug/dL Low 41-186 [facility] Comment on above: Order Comment: Speci men Type: BLOOD SPECIMENOrdering Facility: [facility] Address: [address] [place] [address] Performed By: #### 5 0190-8, 2276-4 ####[facility] LABCLIA [id number] [place] [address] [place] Iron binding capacity [Mass/Vol] 209 ug/dL Low 232-386 [facility] Comment on above: Order Comment: Agatha horner Type: BLOOD SPECIMENOrdering Facility: [facility] Address: [address] [place] [address] Performed By: #### 5 0190-8, 2276-01 ####[facility] LABCLIA [id number] [address] OF [facility] Iron/TIBC [Molar ratio] 18.7 % Normal 15.0-57.0 C [facility] Comment on above: Order Comment: Agatha horner Type: BLOOD SPECIMENOrdering Facility: [facility] Address: [address] [place] [address] Performed By: #### 5 0190-8, 2276-01 ####[facility] LABCLIA [id number] [address] OF [facility] CNPArgelia 02-19-2025 CNPN Telephone (HEMAWS) BECKY HUFFMAN ([id number]) 1970 F Date Time Provider Department 02/19/25 SIS STOCKTON HEMSAVANA During your visit today, we recorded the following information about you: Sis Stockton DO 02/19/2025 2:53 PM Signed Can let her know the CT scans showed no sign of cancer. She is following with pulmonary medicine for the right-sided effusion. She has been on oral iron replacement for several weeks. Recommend checking CBC/iron studies later this week. DO Richie Luque Pamela S, LPN 02/20/2025 8:47 AM Signed Left message for pt. To contact office concerning her recent CT results. MAR Haider Melanie, LPN 02/20/2025 12:[address] Stockton- please file orders. Patient will be in later this week for labs and walk-in at [facility] [address]. MAR Reid Paul A, DO 02/20/2025 12:54 PM Signed Filed. Thank you. Allergies As of Date: 02/19/2025 (No Known Allergies) Date Reviewed: 02/14/2025 Reviewed by: Austen Carter MD - Fully Assessed Reason for Visit: Results [95] Primary Visit Diagnosis:Iron deficiency anemia, unspecified iron deficiency anemia type [D50.9] Order(s):FERRITIN [SQFERR] Order #: [id number] FUTURE IRON AND TIBC [SQIRON] Order #: [id number] FUTURE COMPLETE BLOOD COUNT AND DIFFERENTIAL [SQCBCDIF] Order #: [id number] FUTURE Prescriptions as of 02/20/2025 - amoxicillin-clavulanat e potassium (AUGMENTIN) 875-125 mg per tablet Take 1 tablet by mouth two times a day for 21 days. - ascorbic acid, vitamin C, (VITAMIN C) 500 mg tablet Take 1 tablet by mouth every Thursday, Thursday, and Thursday. - anastrozole (ARIMIDEX) 1 mg tablet Take 1 tablet by mouth once daily. - hydrOXYchloroQUINE (PLAQUENIL) 200 mg tablet Take 200 mg by mouth once daily. - cholecalciferol, vitamin D3, (VITAMIN D3 ORAL) Take 2,000 Units by mouth once daily. - certolizumab pegol (CIMZIA SUBCUTANEOUS) Inject 200 mg subcutaneously. Twice a month - calcium carbonate/vitamin D3 (CALCIUM 600 + D ORAL) Take 1 tablet by mouth once daily. - leflunomide (ARAVA) 20 mg tablet Take 20 mg by mouth once daily. - ferrous sulfate 325 mg (65 mg iron) tablet Take 325 mg by mouth once daily. - DAILY MULTIVITAMIN TAB Take 1 tablet by mouth once daily. Problem List As Of Date 02/19/2025 Noted Resolved Climacteric [N95.1] 12/16/2013 Malignant neoplasm of central portion of right *12/23/2018 Rheumatoid arthritis involving multiple sites (*05/20/2021 Encounter Status:Closed by RADHA PERDOMO on 02/20/25 Normal [facility] PT D/C Summary (1)on 025 PT D/C Summary (1) [facility] [address] [place] [address] / REHABILITATION SERVICES DISCHARGE SUMMARY MR#: [id number] Acct: [id number] Name: BECKY HUFFMAN Rep #: [id number] : 1970 54 From: López Cameron PT, ATC Referring Dr.: CLOTILDE Meraz Status: REG RCR Insurance: [facility] [id number] [place] [employer]ANCE Discharge Summary D/C summary: It has been my pleasure to treat BECKY HUFFMAN referred by CLOTILDE Meraz, with the diagnosis of B shoulder OA 12/15/24 for a total of 9 visit(s). Discharge Date: Please see the following information for a summary of their discharge status. Subjective Subjective: Pt is going back to work on Thursday Pain B shoulders: Pain Intensity (Out of 10): 2 Overall Improvement % Improvement: 50 Objective Objective/Function: B shoulder pain is 2/10 ROM: L shoulder flex= 140, abd= 140 degrees; R shoulder flex= 130, abd= 105 MMT: L shoulder flex= 6, abd= 9, ER= 8, IR= 9 #F; R shoulder flex= 6, abd= 7, ER= 8, IR= 11 #F Pt has shown excellent progress at this time Goals Goal 1:: Decrease B shoulder pain x 50% to aid with sleep Goal 2:: Increase B shoulder flexion and abduction ROM x 30 degrees to aid with overhead lifting Goal 3:: Increase B shoulder strength x 5-10#F to aid with RTW without limitation Goal 4:: I with HEP Goal Progress: Goal Met Plan Plan: Discharge to [facility] D/C Information d/c sentence: If there are questions or concerns regarding this patient's physical therapy, please feel free to call me at [phone]. Thank you for the referral of this patient. Sincerely, López Cameron, PT, ATC Balance/Gait/Functiona l tests Balance/Special Test Scores Quick DASH Score: 56.8175 Improvement % Improvement: 50 02/15/25 1200 CC: ELIZABETH Ireland; CLOTILDE Meraz [facility] Signed Normal [facility] CNOVon 02-14-2025 CNOV Office Visit (PULMWS ) BECKY HUFFMAN ([id number]) 1970 F Date Time Provider Department 02/14/25 11:00 AM AUSTEN CARTER PULMWS During your visit today, we recorded the following information about you: Pulse Respiration Blood pressure 102/minute 17/minute 104/64 Austen Carter MD 02/14/2025 6:47 PM Signed . Respiratory [place] Note Patient name: Becky Huffman PCP: Becky Ireland APRN.ATMOSPHERIC CHEMIST Referring Physician: Consultation requested by Becky Briones for an opinion regarding pleural effusion. My final recommendations will be communicated back to the requesting physician by way of shared Medical record or letter to requesting physician via US mail. CC: Pleural effusion HPI: Becky Huffman 54 year old female non-smoker with PMH significant for history of right breast cancer, BRCA positive s/p bilateral mastectomy, radiation and anastrozole, rheumatoid arthritis diagnosed age 38, diverticulosis. Recent history notable for hospital admission due to septic arthritis. Current history started off with influenza in November. She had sore throat and lymphadenopathy with odynophagia. Was started on oral prednisone. She had significant bilateral shoulder pain left wrist pain severe fatigue, fevers chills and right sided chest discomfort which she described as a catch. She has had persistent fatigue, SOB and elevated inflammatory markers. Admitted to [facility] 12/15 through December 21. She had 8 influenza bacteremia status post left wrist irrigation and debridement with synovectomy followed by left shoulder arthroscopic irrigation and debridement then right shoulder arthroscopic irrigation and debridement.left wrist surgical culture positive for haemophilus influenza and right shoulder was positive for bacillus species. She was treated with IV antibiotics, seen by infectious disease, discharged on ciprofloxacin and Flagyl. She received oral antibiotics for 2 weeks. Additionally she had note of a moderate right pleural effusion with right upper lobe infiltrate and right lower lobe infiltrate/compressive atelectasis. Since discharge she has had persistent fatigue and intermittent shortness of breath as well as a persistent right sided catch. Due to her symptoms and persistent elevated inflammatory markers, a CTA of the chest was obtained on 02/01/2025 to assess for possible pulmonary embolism. Negative for pulmonary embolism but pertinent for a right loculated pleural effusion. She was sent to interventional radiology for thoracentesis but ultrasound revealed a small amount of fluid so risk of procedure outweighed benefits from obtaining fluid. Overall she has been feeling better. Her energy level is returning. She continues to have weakness in her shoulders and her wrist. Occasional right sided chest pain. No fevers, chills, weight loss, night sweats. No cough or sputum production. DATA: Labs: Component Ref Range AND Units 1 mo ago (12/15/24) CRP <0.9 mg/dL 32.5 High Component Ref Range AND Units 1 mo ago (12/15/24) Sed Rate, Westergren 0 - 20 mm/hr 22 High Microbiology 12/16/24 Unknown Incision/Surgical Site Gram Stain - Final 12/16/24 Unknown Incision/Surgical Site Wound Culture - Final Haemophilus influenzae 12/16/24 Unknown Incision/Surgical Site Anaerobic Culture - Final No growth in 5 days. 12/16/24 Unknown Incision/Surgical Site Gram Stain - Final 12/16/24 Unknown Incision/Surgical Site Wound Culture - Final Haemophilus influenzae 12/16/24 Unknown Incision/Surgical Site Anaerobic Culture - Final No growth in 5 days. 12/19/24 07:33 Wound exudate - Aerobic AND Anaerobic Swabs Gram Stain - Final 12/19/24 07:33 Wound exudate - Aerobic AND Anaerobic Swabs Wound Culture - Preliminary No growth-Final to follow 12/15/24 21:37 Fluid - Synovial (joint) Gram Stain - Final 12/15/24 21:37 Fluid - Synovial (joint) Body Fluid Culture - Final Haemophilus influenzae 12/15/24 21:37 Fluid - Synovial (joint) Anaerobic Culture - Final No growth in 5 days. 12/17/24 11:00 Aspirate - Shoulder Gram Stain - Final 12/17/24 11:00 Aspirate - Shoulder Wound Culture - Final Bacillus sp., not anthracis 12/17/24 11:00 Aspirate - Shoulder Anaerobic Culture - Preliminary No growth in 48 hours. 12/15/24 22:21 Blood Culture (Wb) - Anticubital Right Blood Culture - Final Haemophilus influenzae 12/15/24 22:21 Blood Culture (Wb) - Right Forearm Blood Culture - Final Haemophilus influenzae Imaging / Diagnostic Studies: DATE OF EXAM: Feb 01 2025 3:57PM [facility] 0564 - CTA CHEST (NON GATED) W IVCON PE / PROCEDURE REASON: Elevated C-reactive protein (CRP) Clinical History: Shortness of breath Comparison: No relevant prior studies available. RESULT: Limitations: None. Evaluation for thromboembolic disease: - Right heart chambe (more content not included)... Normal [facility] Colonoscopy Reporton 02-13- 025 Colonoscopy Report [facility] Medical Records Department [address] [place] [address] Colonoscopy Report MR#: [id number] Acct: [id number] Name: BECKY HUFFMAN Rep #: [id number] : 1970 54 From: Carlos Harrington DO PCP: ELIZABETH Garcia Status:[place] [facility] Patient Name: Becky Huffman Procedure Date: 02/13/2025 12:11 PM Date of : 1970 Age: 54 Procedure: Colonoscopy Indications: Hematochezia Providers: Carlos Harrington DO Referring MD: Becky Ireland Medicines: Monitored Anesthesia Care Patient Profile: This is a 54 year old female. Refer to note in patient chart for documentation of history and physical. Patient has symptoms of acute epigastric abdominal pain and chronic dyspepsia. Last Colonoscopy: date unknown. Unable to locate last colonoscopy report. Complications: No immediate complications. Procedure: Pre-Anesthesia Assessment: - Prior to the procedure, a History and Physical was performed, and patient medications and allergies were reviewed. The patient is competent. The risks and benefits of the procedure and the sedation options and risks were discussed with the patient. All questions were answered and informed consent was obtained. Patient identification and proposed procedure were verified by the physician in the pre-procedure area. Mental Status Examination: alert and oriented. Airway Examination: normal oropharyngeal airway and neck mobility. Respiratory Examination: clear to auscultation. CV Examination: normal. Prophylactic Antibiotics: The patient does not require prophylactic antibiotics. Prior Anticoagulants: The patient has taken no anticoagulant or antiplatelet agents except for NSAID medication. ASA Grade Assessment: II - A patient with mild systemic disease. After reviewing the risks and benefits, the patient was deemed in satisfactory condition to undergo the procedure. The anesthesia plan was to use monitored anesthesia care (MAC). Immediately prior to administration of medications, the patient was re-assessed for adequacy to receive sedatives. The heart rate, respiratory rate, oxygen saturations, blood pressure, adequacy of pulmonary ventilation, and response to care were monitored throughout the procedure. The physical status of the patient was re-assessed after the procedure. After I obtained informed consent, the scope was passed under direct vision. Throughout the procedure, the patient's blood pressure, pulse, and oxygen saturations were monitored continuously. The Colonoscope was introduced through the anus and advanced to the terminal ileum. The colonoscopy was performed without difficulty. The patient tolerated the procedure well. The quality of the bowel preparation was adequate. The ileocecal valve, appendiceal orifice, and rectum were photographed. Scope In: 12:12:38 PM Scope Withdrawal Time 0 hours 7 minutes 36 seconds Scope Out: 12:22:40 PM Total Procedure Duration Time 0 hours 10 minutes 2 seconds Findings: The perianal and digital rectal examinations were normal. Internal hemorrhoids were found during retroflexion. The hemorrhoids were Grade II (internal hemorrhoids that prolapse but reduce spontaneously). A few small-mouthed diverticula were found in the recto-sigmoid colon, sigmoid colon and descending colon. A few three mm ulcers were found in the sigmoid colon and at the hepatic flexure. No bleeding was present. Biopsies were taken with a cold forceps for histology. Verification of patient identification for the specimen was done. Estimated blood loss was minimal. The terminal ileum appeared normal. The exam was otherwise without abnormality on direct and retroflexion views. Impression: - Internal hemorrhoids. - Diverticulosis in the recto-sigmoid colon, in the sigmoid colon and in the descending colon. - A few ulcers in the sigmoid colon and at the hepatic flexure. Biopsied. - The examined portion of the ileum was normal. - The examination was otherwise normal on direct and retroflexion views. Recommendation: - Discharge patient to home. - Resume previous diet. - Continue present medications. - Await pathology results. - Repeat colonoscopy is recommended. The colonoscopy date will be determined after pathology results from today's exam become available for review. Procedure Code(s): --- Professional --- 38637, Colonoscopy, flexible; with biopsy, single or multiple CPT copyright 2021 [employer]. All rights reserved. The codes documented in this report are preliminary and upon storekeeper helper review may be revised to meet current compliance requirements. Carlos Harrington DO 02/13/2025 12:30:22 PM This report has been signed electronically. Number of Addenda: 0 Note Initiated On: 02/13/2025 12:11 PM 02/13/25 1230 Date (more content not included)... Normal [facility] EGD Reporton 02-13-2025 EGD Report [facility] Medical Records Department [address] [place] [address] EGD Report MR#: [id number] Acct: [id number] Name: BECKY HUFFMAN Rep #: [id number] : 1970 54 From: Carlos Harrington DO PCP: ELIZABETH Garcia Status:[facility] Patient Name: Becky Huffman Procedure Date: 02/13/2025 11:56 AM Date of : 1970 Age: 54 Procedure: Upper GI endoscopy Indications: Acute post hemorrhagic anemia, Iron deficiency anemia, Recent gastrointestinal bleeding Providers: Carlos Harrington DO Referring MD: Becky Ireland Medicines: Monitored Anesthesia Care Patient Profile: This is a 54 year old female. Refer to note in patient chart for documentation of history and physical. Patient has symptoms of acute epigastric abdominal pain and chronic dyspepsia. Complications: No immediate complications. Procedure: Pre-Anesthesia Assessment: - Prior to the procedure, a History and Physical was performed, and patient medications and allergies were reviewed. The patient is competent. The risks and benefits of the procedure and the sedation options and risks were discussed with the patient. All questions were answered and informed consent was obtained. Patient identification and proposed procedure were verified by the physician in the pre-procedure area. Mental Status Examination: alert and oriented. Airway Examination: normal oropharyngeal airway and neck mobility. Respiratory Examination: clear to auscultation. CV Examination: normal. Prophylactic Antibiotics: The patient does not require prophylactic antibiotics. Prior Anticoagulants: The patient has taken no anticoagulant or antiplatelet agents except for NSAID medication. ASA Grade Assessment: II - A patient with mild systemic disease. After reviewing the risks and benefits, the patient was deemed in satisfactory condition to undergo the procedure. The anesthesia plan was to use monitored anesthesia care (MAC). Immediately prior to administration of medications, the patient was re-assessed for adequacy to receive sedatives. The heart rate, respiratory rate, oxygen saturations, blood pressure, adequacy of pulmonary ventilation, and response to care were monitored throughout the procedure. The physical status of the patient was re-assessed after the procedure. After obtaining informed consent, the endoscope was passed under direct vision. Throughout the procedure, the patient's blood pressure, pulse, and oxygen saturations were monitored continuously. The Colonoscope was introduced through the mouth, and advanced to the third part of the duodenum. Small bowel enteroscopy was deemed necessary. The upper GI endoscopy was accomplished without difficulty. The patient tolerated the procedure well. Scope In: 12:07:44 PM Scope Out: 12:10:35 PM Total Procedure Duration Time 0 hours 2 minutes 51 seconds Findings: The examined esophagus was normal. A small hiatal hernia was present. Patchy mildly erythematous mucosa without bleeding was found in the gastric body. Biopsies were taken with a cold forceps for histology. Verification of patient identification for the specimen was done. Estimated blood loss was minimal. Biopsies were taken with a cold forceps for Helicobacter pylori testing. Verification of patient identification for the specimen was done. Estimated blood loss was minimal. No gross lesions were noted in the entire examined duodenum. Impression: - Normal esophagus. - Small hiatal hernia. - Erythematous mucosa in the gastric body. Biopsied. - No gross lesions in the entire examined duodenum. Recommendation: - Discharge patient to home. - Resume previous diet. - Continue present medications. - Await pathology results. Procedure Code(s): --- Professional --- 48853, Small intestinal endoscopy, enteroscopy beyond second portion of duodenum, not including ileum; with biopsy, single or multiple CPT copyright 2021 [employer]. All rights reserved. The codes documented in this report are preliminary and upon storekeeper helper review may be revised to meet current compliance requirements. Carlos Harrington DO 02/13/2025 12:27:42 PM This report has been signed electronically. Number of Addenda: 0 Note Initiated On: 02/13/2025 11:56 AM 02/13/25 1227 Date Carlos Harrington DO Abel Signature: Date (if indicated) CC: PIN CHASER-C Becky Ireland; Carlos Harrington DO Date Dictated: 02/13/25 1156 Date Transcribed: Tourist Adviser: CARLY Hernandes [facility] MR/POSTOP.[facility] 02-13-2025 MR/POSTOP.[facility] Medical Records Department [address] [place] [address] Anesthesia Postop Eval I 02/13/25 1231 MR#: [id number] Acct: [id number] Name: DEREKBECKY HAYDEN TRAY Rep #: [id number] : 1970 54 From: Akin Pradhan PCP: ELIZABETH Garcia Status:REG [facility] Y Race: C Location: [place] [address] Anesthesia: Postop Eval I Current Vital Signs Temperature: 98.4 F Pulse Rate: 92 Blood Pressure: 100/69 Respiratory Rate: 16 Pulse Ox: 97 Oxygen Delivery Method: Room Air Assessment Airway patent: Yes Spontaneous unlabored respirations: Yes Mental status: Asleep nausea: No Vomiting: No Anesthesia Complication: No Fluid Hydration Crystalloid volume administer (ml): 700 Total IV fluid infused: 700 Progress Note Anesthesia document: Postop Eval 1 completed: Yes 02/13/25 1232 Date Akin Pradhan Cosigner Signature: Date CC: Signed Normal [facility] MR/NWYLPKUD9xo 02-13-2025 MR/POSTOPAN2 [facility] Medical Records Department [address] [place] [address] Anesthesia Postop Eval II 02/13/25 1307 MR#: [id number] Acct: [id number] Name: BECKY HUFFMAN Rep #: [id number] : 1970 54 From: Dewayne Parr MD PCP: ELIZABETH Garcia Status:REG [facility] [place] Race: C Location: [facility]-18 Anesthesia Postop Eval I Sum Postop Eval Completion status Anesthesia document: Postop Eval 1 completed: Yes Anesthesia Postop Eval I Summary Anesthesia Postop Eval I Summary: Anesthesia Postop Eval I: Assessment Summary Airway patent Yes 02/13/25 12:32 [email or web address] Spontaneous unlabored Yes 02/13/25 12:32 [email or web address] respirations Mental status Asleep 02/13/25 12:32 [email or web address] nausea No 02/13/25 12:32 [email or web address] Vomiting No 02/13/25 12:32 [email or web address] Anesthesia Postop Eval I: Fluid Summary Crystalloid volume administer 700 02/13/25 12:32 [email or web address] (ml) Colloids volume administered ( ml) Blood Product volume administered (ml) Total IV fluid infused 700 02/13/25 12:32 [email or web address] Anesthesia Postop Eval I: Summary Notes Anesthesia Complication No 02/13/25 12:32 [email or web address] Anesthesia Complication Comment: Post-operative progress note Anesthesia: Postop Eval II Evaluation Mental status: Awake Pain Level: 0 nausea: No Vomiting: No 02/13/25 1307 Date Dewayne Roman Signature: Date CC: Signed Normal [facility] Surgery Specimen Level [place] 02-13-2025 Surgery Specimen Level IV ---- Patient Age/Sex Location Account Attending Physician ---- BECKY HUFFMAN 54/F EN [id number] Carlos Harrington DO ---- Specimen: [id number] Received: 02/14/25 Status: ROBBY Mandujano Num: [id number] Spec Type: EGD BIOPSY Patti Dr: Carlos Harrington, DO HEADER OPERATION: Colonoscopy with biopsy, EGD with biopsy PRE-OP DIAGNOSIS: Blood in stool, rectal bleeding TISSUE SUBMITTED: A- Antrum biopsy, B- Hepatic flexure biopsy ---- MICROSCOPIC DIAGNOSIS A. Stomach, antrum, biopsy: Antral and oxyntic mucosa with features of reactive gastropathy. Negative for Helicobacter-like organisms (H E). B. Colon, hepatic flexure, biopsy: Tubular adenoma. MICROSCOPIC DESCRIPTION Slides are reviewed. GROSS DESCRIPTION A. Received in fixative is one container labeled with the patient's name and designated Antrum biopsy. The specimen consists of multiple irregular fragments of light devries soft tissue that in aggregate measure 1.3 x 0.6 x 0.2 cm. The specimen is totally submitted in one cassette. B. Received in fixative is one container labeled with the patient's name and designated Hepatic flexure ulcer. The specimen consists of one irregular fragment of light devries soft tissue that measures 0.5 x 0.3 x 0.2 cm. The specimen is totally submitted in one cassette. 02/14/2025 [facility]:[id number] ---- Patient Age/Sex Location Account Attending Physician ---- BECKY HUFFMAN 54/F EN [id number] Carlos Harrington DO ---- Signed (signature on file) Dr. Nathaly Turner MD 02/17/25 1802 ---- [facility] Comment on above: Performed By: #### P SUIV ####[facility] [id number] [facility] [place], [address] US CHEST EFFUSION SURVEY RTo n 02-10-2025 US CHEST EFFUSION SURVEY RT * * *Final Report* * * DATE OF EXAM: Feb 10 2025 2:58PM MICHAEL 1044 - US CHEST EFFUSION SURVEY RT / PROCEDURE REASON: Y14-Aiaukha effusion on right * * * * Physician Interpretation * * * * EXAM: US CHEST EFFUSION SURVEY RT EXAM DATE: 02/10/2025 2:58 PM CLINICAL HISTORY: Pleural effusion on right COMPARISON: None TECHNIQUE: Ultrasound of the right chest was performed using a high frequency linear transducer. Images were stored in a permanent archive. RESULT: There is a small right pleural effusion. IMPRESSION: Small right pleural effusion. Tourist Adviser: PSCB Transcribe Date/Time: Feb 12 2025 10:20A Dictated by : OLIVIER ANDRADE MD This examination was interpreted and the report reviewed and electronically signed by: OLIVIER ANDRADE MD on Feb 12 2025 10:21AM EST [id number] [facility] MR/PAT.Aleshia 02-09-2025 MR/PAT.[facility] Medical Records Department [address] [place] [address] PAT - Anesthesia 02/09/25 1520 MR#: [id number] Acct: [id number] Name: BECKY HUFFMAN Rep #: [id number] : 1970 54 From: Patrice Choudhary MD PCP: ELIZABETH Garcia Status:PRE [facility] [place] Y Race: C Location: EN Pre-Assessment Diagnosis/Proposed Procedure Planned Operative Procedure(s): COLONOSCOPY AND EGD Anesthesia History 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 When Was Last Pacemaker Check QUESTION #4 FULL TEXT: You/Your Family Experience fever (hyperthermia) with Anesthesia Last Oral Intake Last Oral intake: Last Oral Intake NPO since Meds taken in AM with sips of water? Meds patient instructed to take am of surgery PONV PONV - marketing engineer: PONV - marketing engineer Female Yes 02/09/25 11:04 HX of Motion Sickness No 02/09/25 11:04 HX of N/V After Surgery No 02/09/25 11:04 Non-Smoker Yes 02/09/25 11:04 Duration of Surgery greater No 02/09/25 11:04 than 60 minutes Number of Risk Factors 2 02/09/25 11:04 PONV Score Moderate Risk 02/09/25 11:04 Height Weight Height Weight: Anesthesia: Height Weight Height 5 ft 6 in 01/13/25 10:49 Respiratory Assessment Respiratory Assessment - marketing engineer: Respiratory Tract Infection Hx - marketing engineer Hx Respiratory Tract Infection No 02/09/25 11:04 STOP Sleep Apnea STOP Sleep Apnea - marketing engineer: STOP Sleep Apnea - marketing engineer Hx Hypertension No 02/09/25 11:04 Hx Sleep Apnea No 02/09/25 11:04 CPAP BIPAP Do you snore loudly (louder No 02/09/25 11:04 than talking or can be heard Do you often feel tired/ No 02/09/25 11:04 fatigued/ sleepy during daytime? Has anyone observed you stop No 02/09/25 11:04 breathing during sleep? STOP Results Negative 02/09/25 11:04 QUESTION #5 FULL TEXT : Do you snore loudly (louder than talking or can be heard through closed doors)? 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 Specify any problems Hx of Preganancy in last 3 No 02/09/25 11:04 Months Nurse Filling Out Transfusion [facility] 02/09/25 11:04 Questions: Date: 02/09/25 02/09/25 11:04 Time: 11:14 02/09/25 11:04 Patient unable to answer at this time (ie. confused, unrespo /Reproduction History /Reproductive History - marketing engineer: /Reproductive Hx- marketing engineer Hx Now No 02/09/25 11:04 Gestational Age (in weeks): EDC: Hx Hx Para Hx Section SAB No 02/09/25 11:04 [facility] Medical History (Updated 02/09/25 @ 11:25 by Marcelina Shirley) History of echocardiogram Wears glasses Post-menopausal Cancer Low iron History of GI bleed Non-smoker BRCA gene positive Breast cancer metastasized to axillary lymph node Breast cancer, right breast Rheumatoid arthritis Home Medications ???Medication ???Instructions ???Recorded ???Last Taken ???Type multivitamin 1 tab PO DAILY general health 11/1901/12/25 History anastrozole 1 mg tablet 1 mg PO DAILY arthritis 10/13/19 0 01/12/25 History ferrous sulfate 325 mg (65 mg 325 mg PO MOWEFR anemia 10/13/19 0 01/13/25 History iron) tablet calcium 500 mg (as 1 ea PO BID def. 02/21/20 01/12/25 History carbonate)-vitamin D3 15 mcg (600 unit) tablet certolizumab pegol 400 mg/2 mL 200 mg subcut Q2W arthritis 01/05/25 History (200 mg/mL x2) subcutaneous syringe kit (Cimzia) hydroxychloroquine 200 mg tablet 200 mg PO QHS art (more content not included)... Normal [facility] PT panel Coag (PPP)on 2024 INR Coag (PPP) [Relative time] 1.1 {INR} Normal 0.9-1.3 [facility] Comment on above: Order Comment: Agatha horner Type: BLOOD SPECIMENOrdering Facility: [facility] Address: [address] [place] [address] Result Comment: Henrietta min K Antagonist (VKA) Therapeutic Range: INR 2 to 3 (Target INR of 2.5) Note: For patients treated with VKA drugs, such as warfarin, the [place] [employer] 2012 Guideline recommends a therapeutic INR range of 2 to 3 (target INR of 2.5). This recommendation includes high-risk patients with antiphospholipid syndrome with previous arterial or venous thromboembolism, current-generation mechanical or bioprosthetic aortic heart valve replacement. Note: Patients with mechanical aortic valve replacement and additional risk factors for thromboembolic events (atrial fibrillation, previous thromboembolism, LV dysfunction, hypercoagulable conditions) or an older generation mechanical AVR (i.e., ball in-Cage) or any mechanical MVR should have a INR therapeutic range of 2.5 to 3.5 (target INR of 3). Ellie PATHAK, et al. Chest 2012, 141:7S-47S Anita RA, et al. [facility] 2017, 70: 252-289 Performed By: #### 3 4528-0 ####[facility] LABCLIA [id number] [address] [place] PT Coag (PPP) [Time] 11.8 s Normal 9.7-13.0 [facility] Comment on above: Order Comment: Speci men Type: BLOOD SPECIMENOrdering Facility: [facility] Address: [address] [place] [address] Performed By: #### 3 4528-0 ####[facility] LABCLTEREZA [id number] [facility] [place] [address] [place] [address] ABD/PEL W IVCONon 02-07-[address] ABD/PEL W IVCON * * *Final Report* * * DATE OF EXAM: Feb 07 2025 12:03PM [facility] 0530 - CT ABD/PEL W IVCON / PROCEDURE REASON: multiple diagnoses * * * * Physician Interpretation * * * * EXAMINATION: CT ABDOMEN AND PELVIS WITH IV CONTRAST CLINICAL HISTORY: Breast cancer TECHNIQUE: CT of the abdomen and pelvis was performed using standard technique, scanning from just above the dome of the diaphragm to the symphysis pubis. MQ: CTAP_3 Contrast: IV: 100 ml of Omnipaque 350 Oral: 10 ml of Omni 240 10-25ml diluted with water CT Radiation dose: Integrated Dose-length product (DLP) for this visit = 679 mGy*cm. CT Dose Reduction Employed: Automated exposure control(AEC) and iterative recon COMPARISON: CT abdomen and pelvis 07/08/2021 RESULT: Liver: No mass. Normal morphology. Biliary: No bile duct dilation. Gallbladder is unremarkable. Spleen: No mass. No splenomegaly. Pancreas: No mass or duct dilation. Adrenals: No mass. Kidneys: The kidneys enhance symmetrically. No hydronephrosis. 2 mm calculus in the lower pole of the right kidney. GI tract: No dilation or wall thickening. Lymph nodes: No abdominal or pelvic lymphadenopathy. Mesentery/Peritoneum: No ascites or mass. Retroperitoneum: No mass. Vasculature: - Abdominal aorta and iliac arteries: No aneurysm. - Celiac and SMA: Patent without stenosis. - Portal venous system (SMV, splenic vein, portal vein and branches): Patent. - Hepatic veins: Patent. Pelvis: No mass, ascites or fluid collection. The bladder has a normal appearance. Bones/Soft Tissues: No significant finding. Lower thorax: A chest CT performed will be reported separately. Localizer images: No additional findings. IMPRESSION: No new mass or lymphadenopathy in the abdomen and pelvis Tourist Adviser: JAEL Transcribe Date/Time: Feb 14 2025 2:45P Dictated by : IAN OLVERA MD This examination was interpreted and the report reviewed and electronically signed by: IAN OLVERA MD on Feb 14 2025 2:52PM EST [id number] Normal [facility] CT CHEST W IVCONon CT CHEST W IVCON * * *Final Report* * * DATE OF EXAM: Feb 07 2025 12:03PM [facility] 0539 - CT CHEST W IVCON / PROCEDURE REASON: multiple diagnoses * * * * Physician Interpretation * * * * EXAMINATION: CHEST CT WITH CONTRAST CLINICAL HISTORY: Breast cancer Technique: Spiral CT acquisition of the chest from the thoracic inlet to the upper abdomen following IV contrast. MQ: CTCW_6 Contrast: 100 mL Omnipaque [address] Radiation dose: Integrated Dose-length product (DLP) for this visit = 679 mGy*cm CT Dose Reduction Employed: Automated exposure control(AEC) and iterative recon Comparison: CT chest 02/01/2025 RESULT: Limitations: None. Lines, tubes, and devices: None. Lung parenchyma and airways: Unchanged groundglass and reticular opacities in the anterior right upper lobe likely due to prior radiation therapy. No consolidation. Right basilar atelectasis. No suspicious pulmonary nodule. The central airways are patent. Pleural space: Unchanged small loculated right pleural effusion. Lower neck, lymph nodes, and mediastinum: The imaged thyroid gland is normal. No lymphadenopathy in the supraclavicular, axillary, mediastinal, or hilar regions. Heart, pericardium, and thoracic vessels: The thoracic aorta and main pulmonary artery are normal in caliber. The cardiac chambers are normal in size. Mild coronary artery atherosclerotic calcifications are noted, although the study is not optimized for coronary assessment. No pericardial effusion or thickening. Bones and soft tissues: No destructive osseous lesion. Postoperative changes from bilateral mastectomies and breast reconstruction surgery. Upper abdomen: CT abdomen and pelvis is dictated separately Localizer images: No additional findings. IMPRESSION: 1. Unchanged small loculated right pleural effusion 2. No new suspicious pulmonary nodules 3. No thoracic lymphadenopathy Tourist Adviser: JAEL Transcribe Date/Time: Feb 14 2025 2:52P Dictated by : IAN OLVERA MD This examination was interpreted and the report reviewed and electronically signed by: IAN OLVERA MD on Feb 14 2025 3:23PM EST [id number] [facility] CNPArgelia 02-06-2025 CNPN Telephone (MEXR) BECKY HUFFMAN ([id number]) 1970 F Date Time Provider Department 02/06/25 ANAYA YATES [place] During your visit today, we recorded the following information about you: Allergies As of Date: 02/06/2025 (No Known Allergies) Date Reviewed: 02/06/2025 Reviewed by: Gunnar Ann, RT(R) - Fully Assessed Prescriptions as of 02/06/2025 - ascorbic acid, vitamin C, (VITAMIN C) 500 mg tablet Take 1 tablet by mouth every Thursday, Thursday, and Thursday. - anastrozole (ARIMIDEX) 1 mg tablet Take 1 tablet by mouth once daily. - hydrOXYchloroQUINE (PLAQUENIL) 200 mg tablet Take 200 mg by mouth once daily. - cholecalciferol, vitamin D3, (VITAMIN D3 ORAL) Take 2,000 Units by mouth once daily. - certolizumab pegol (CIMZIA SUBCUTANEOUS) Inject 200 mg subcutaneously. Twice a month - calcium carbonate/vitamin D3 (CALCIUM 600 + D ORAL) Take 1 tablet by mouth once daily. - leflunomide (ARAVA) 20 mg tablet Take 20 mg by mouth once daily. - ferrous sulfate 325 mg (65 mg iron) tablet Take 325 mg by mouth once daily. - DAILY MULTIVITAMIN TAB Take 1 tablet by mouth once daily. Problem List As Of Date 02/06/2025 Noted Resolved Climacteric [N95.1] 12/16/2013 Malignant neoplasm of central portion of right *12/23/2018 Rheumatoid arthritis involving multiple sites (*05/20/2021 Encounter Status:Closed by ANAYA YATES on 02/06/25 [facility] SerPl-cCncon 02-04-2025 LDH [Catalytic activity/Vol] 179 U/L Normal 135-214 [facility] Comment on above: Order Comment: Speci men Type: BLOOD SPECIMENOrdering Facility: [facility] Address: [address] [place] [address] Performed By: #### 2 532-0 ####[facility] LABCLIA [id number] [address] [place] Prot SerPl-mCncon 02-04-2025 Protein [Mass/Vol] 8.1 g/dL High 6.3-8.0 [facility] Comment on above: Order Comment: Speci men Type: BLOOD SPECIMENOrdering Facility: [facility] Address: [address] [place] [address] Performed By: #### 2 885-2 ####[facility] LABCLIA [id number] [address] [place] CNPArgelia 02-03-20[facility] ([id number]) 1970 F Date Time Provider Department 02/03/25 [facility] During your visit today, we recorded the following information about you: Becky Ireland APRN.CNP 02/03/2025 3:35 PM Signed Phone call to patient and message left to return call. Provider would like to talk with patient. Please get return phone number if provider is not available at time of return call. Becky Ireland APRN.Benita Neville RN 02/03/2025 4:09 PM Signed Patient returned call. Provider not available at this moment. Informed patient that provider would call her back. [phone] CHEIKH Sutton Christy, APRN.ATMOSPHERIC CHEMIST 02/03/2025 4:26 PM Signed Return call to patient. Discussed with patient that I reviewed case with substance abuse nurse and reviewed recent CT. Recommends image guided thoracentesis. Patient is agreeable to plan. Orders for labs/fluids placed by pulmonology. Procedure order placed. Phone call to [facility]. They will call to schedule patient. Becky Ireland APRN.ATMOSPHERIC CHEMIST Allergies As of Date: 02/03/2025 (No Known Allergies) Date Reviewed: 01/26/2025 Reviewed by: Blessing Quiroz LPN - Fully Assessed Primary Visit Diagnosis:Pleural effusion on right [J90] Order(s):IMAGING GUIDED THORACENTESIS [6572117] Order #: [id number] Prescriptions as of 02/03/2025 - ascorbic acid, vitamin C, (VITAMIN C) 500 mg tablet Take 1 tablet by mouth every Thursday, Thursday, and Thursday. - anastrozole (ARIMIDEX) 1 mg tablet Take 1 tablet by mouth once daily. - hydrOXYchloroQUINE (PLAQUENIL) 200 mg tablet Take 200 mg by mouth once daily. - cholecalciferol, vitamin D3, (VITAMIN D3 ORAL) Take 2,000 Units by mouth once daily. - certolizumab pegol (CIMZIA SUBCUTANEOUS) Inject 200 mg subcutaneously. Twice a month - calcium carbonate/vitamin D3 (CALCIUM 600 + D ORAL) Take 1 tablet by mouth once daily. - leflunomide (ARAVA) 20 mg tablet Take 20 mg by mouth once daily. - ferrous sulfate 325 mg (65 mg iron) tablet Take 325 mg by mouth once daily. - DAILY MULTIVITAMIN TAB Take 1 tablet by mouth once daily. Problem List As Of Date 02/03/2025 Noted Resolved Climacteric [N95.1] 12/16/2013 Malignant neoplasm of central portion of right *12/23/2018 Rheumatoid arthritis involving multiple sites (*05/20/2021 Encounter Status:Closed by BECKY IRELAND on 02/03/25 Normal [facility] Gastroenterology Visit Repor ton 02-03-2025 Gastroenterology Visit Report [facility] [place] [address] OFFICE VISIT Date of Service: 02/03/25 MR#: [id number] Acct: [id number] Name: BECKY HUFFMAN Rep #: [id number] 20 : 1970 Provider: CLOTILDE Galo Age/Sex: 54/F Location: [facility] Status: Signed Intake Vital Signs 01/13/25 10:49 Height 5 ft 6 in Intake Visit Reasons: Blood in Stool Chief Complaint: rectal bleeding Allergies No Known Allergies Allergy (Verified 01/13/25 11:11) Medications ???Medication ???Instructions ???Recorded ???Confirmed ???Type multivitamin 1 tab PO DAILY general health 11/1901/26/25 History anastrozole 1 mg tablet 1 mg PO DAILY arthritis 10/13/19 0 01/26/25 History ferrous sulfate 325 mg (65 mg 325 mg PO BID anemia 10/13/1901/17 History iron) tablet calcium 500 mg (as 1 ea PO BID def. 02/21/20 01/26/25 History carbonate)-vitamin D3 15 mcg (600 unit) tablet certolizumab pegol 400 mg/2 mL 200 mg subcut Q2W arthritis 01/26/25 History (200 mg/mL x2) subcutaneous syringe kit (Cimzia) hydroxychloroquine 200 mg tablet 200 mg PO QHS arthritis 07/09/21 0 01/26/25 History leflunomide 20 mg tablet 20 mg PO DAILY arthritis 12/15/24 01/26/25 History acetaminophen 500 mg tablet 1,000 mg PO Q8H PRN pain 01/13/25 01/26/25 History PFSH Medical History BRCA gene positive Breast cancer metastasized to axillary lymph node Breast cancer, right breast Rheumatoid arthritis Surgical History S/P bilateral salpingo-oophorectomy S/P breast reconstruction S/P bilateral mastectomy Status post right breast lumpectomy ( 12/2018) History of tonsillectomy Family History Son Diabetes Grandfather Heart disease Mother Cancer possible throat cancer (Went through radiation) Father Cancer lung Social History household members: none housing: apartment current occupational status: employed Smoking Status: Never smoker alcohol intake: current alcohol intake frequency: holidays/special occasions only substance use type: does not use caffeine: Yes what type of physical activity do you participate in: walking and aerobics frequency: 5-6 times per week seatbelt use: always do you feel safe at home: Yes additional social history: Patient works at [employer], [employer] home Female Reproductive History Menstrual Date of menopause: 11/19/16 HPI HPI Chief Complaint: rectal bleeding Details: BECKY HUFFMAN, is a 54 F who presents to the office today for establishment with [facility]. PMHx of breast cancer and RA [facility] Admission 2..25-3.35 with septic wrist and bilateral shoulders. Underwent surgical drainage and IV antibiotics. [facility] ED 01.13.25 with fatigue and weakness. Work up revealing low Hgb 8.5 Pt here today for evaluation and to be scheduled for a colonoscopy. Pt has not had any further rectal bleeding since her last ED visit. She notes her hgb has trended upward since then and her PCP believes the low hemoglobin to be related to her chronic illnesses. She is no longer feeling fatigued or weak and thinks this was related to having influenza A. Her last colonoscopy was in [address] Elias with recommendation for repeat in 5 years so she is due at this time. ROS Const Constitutional: Positive for fatigue and weight change (weight loss); No fever(s) ENT ENT: No difficulty swallowing Gastro GI: Positive for diarrhea and Blood in stool; No abdominal pain, belching, bloating, change in bowel habits, change in stool character, coffee ground emesis, constipation, cramping, heartburn, difficulty swallowing, feeling full early, excessive flatus, incontinent of stools, Vomiting blood/hematemesis, loose stools, Black,tarry stools, nausea/dyspepsia, pain with swallowing, vomiting or other Musc Musculoskeletal: Positive for joint pain, muscle weakness, numbness, tingling and Arthritis Skin Skin: No yellowing of the eye or itchy eyes Neuro Neurology: Positive for numbness and tingling Psych Psychiatric: No anxiety and No depression Endo Endocrine: Positive for fatigue and weight change (weight loss) Aller/Imm Allergy/Immunologic: No itchy eyes Collins/Lymp Hematologic/Lymphatic: Positive for easy bruising; No easy bleeding Exam Const General: cooperative and comfortable Nutritional Appearance: average body habitus and well nourished HENMT Head: normal to inspection Ears: hearing grossly normal bilaterally Nose: external nose normal Face and sinus: normal facial exam Eyes General: appearance normal, both eyes and all related structures Ne (more content not included)... Normal [facility] CBC W/Diff, Automatedon 04- PATH REV Reviewed Normal [facility] Comment on above: Result Comment: SEE REPORT IN PATIENT'S EMR AMENDED REPORT 02/02/25 1349 PATH REV previously reported as: February Performed By: #### L 500.2500, L100.0100 #### [facility] [address] [place], [address] CTA CHEST (NON GATED) W IVCO N PEon 02-01-2025 CTA CHEST (NON GATED) W IVCON PE * * *Final Report* * * DATE OF EXAM: Feb 01 2025 3:57PM [facility] 0564 - CTA CHEST (NON GATED) W IVCON PE / PROCEDURE REASON: Elevated C-reactive protein (CRP) * * * * Physician Interpretation * * * * EXAMINATION: CHEST CTA (NON GATED) WITH CONTRAST (PULMONARY EMBOLISM PROTOCOL) Clinical History: Shortness of breath Technique: Spiral CT acquisition of the chest from the thoracic inlet to the upper abdomen following IV contrast. Axial 1 and 3 mm thick slices plus coronal and sagittal reformatted images. MQ: CTCP_5 Contrast: 100 mL Omnipaque [address] Radiation dose: Integrated Dose-length product (DLP) for this visit = 284.19 mGy*cm CT Dose Reduction Employed: mAs-kVp adjusted based on patient size-age CTA: Post-processed images (Maximum intensity Projection (MIP), Volume-rendered (VR), or Surface shaded display images (SSD) were created, reviewed and archived. Comparison: No relevant prior studies available. RESULT: Limitations: None. Evaluation for thromboembolic disease: - Right heart chambers: No thromboembolic disease. - Main pulmonary arteries: No thromboembolic disease. - Lobar pulmonary arteries: No thromboembolic disease. - Segmental pulmonary arteries: No thromboembolic disease. - Subsegmental pulmonary arteries: No thromboembolic disease. - Additional pulmonary artery findings: The main pulmonary artery is normal in caliber. Lines, tubes, and devices: None. Lung parenchyma and airways: There are peripheral reticular and groundglass opacities noted in the right leg lung apex and right upper lobe anteriorly suggestive of posttreatment changes. Findings suggestive of atelectasis in the right lower lobe. The left lung appears clear. No masses are identified. There are reticular densities in the right lower lobe and right middle lobe which may represent areas of scarring or atelectasis. Pleural space: There is a small right pleural effusion which appears loculated. Right pleural thickening is noted. Lower neck, lymph nodes, and mediastinum: The imaged thyroid gland is normal. No lymphadenopathy in the supraclavicular, axillary, mediastinal, or hilar regions. Heart, pericardium, and thoracic vessels: No evidence of aneurysm. The thoracic aorta is ectatic and tortuous. No pericardial effusion is identified. Bones and soft tissues: No destructive bone lesion. Chest wall is unremarkable. Upper abdomen: No abnormality in the imaged upper abdomen. Localizer images: IMPRESSION: 1. No CT evidence of pulmonary embolism. 2. Loculated right pleural effusion Tourist Adviser: [facility] Transcribe Date/Time: Feb 01 2025 6:00P Dictated by : MAURICIO DAMON MD This examination was interpreted and the report reviewed and electronically signed by: MAURICIO DAMON MD on Feb 01 2025 6:05PM EST [id number] Normal [facility] CTA Pulmonary arteries for p ulmonary embolus W contrast [place] 02-01-2025 IMPRESSION: 1. No CT evidence of pulmonary embolism. 2. Loculated right pleural effusion Tourist Adviser: [facility] Transcribe Date/Time: Feb 01 2025 6:00P Dictated by : MAURICIO DAMON MD This examination was interpreted and the report reviewed and electronically signed by: MAURICIO DAMON MD on Feb 01 2025 6:05PM EST [facility] * * *Final Report* * * DATE OF EXAM: Feb 01 2025 3:57PM [facility] 0564 - CTA CHEST (NON GATED) W IVCON PE / PROCEDURE REASON: Elevated C-reactive protein (CRP) * * * * Physician Interpretation * * * * EXAMINATION: CHEST CTA (NON GATED) WITH CONTRAST (PULMONARY EMBOLISM PROTOCOL) Clinical History: Shortness of breath Technique: Spiral CT acquisition of the chest from the thoracic inlet to the upper abdomen following IV contrast. Axial 1 and 3 mm thick slices plus coronal and sagittal reformatted images. MQ: CTCP_5 Contrast: 100 mL Omnipaque [address] Radiation dose: Integrated Dose-length product (DLP) for this visit = 284.19 mGy*cm CT Dose Reduction Employed: mAs-kVp adjusted based on patient size-age CTA: Post-processed images (Maximum intensity Projection (MIP), Volume-rendered (VR), or Surface shaded display images (SSD) were created, reviewed and archived. Comparison: No relevant prior studies available. RESULT: Limitations: None. Evaluation for thromboembolic disease: - Right heart chambers: No thromboembolic disease. - Main pulmonary arteries: No thromboembolic disease. - Lobar pulmonary arteries: No thromboembolic disease. - Segmental pulmonary arteries: No thromboembolic disease. - Subsegmental pulmonary arteries: No thromboembolic disease. - Additional pulmonary artery findings: The main pulmonary artery is normal in caliber. Lines, tubes, and devices: None. Lung parenchyma and airways: There are peripheral reticular and groundglass opacities noted in the right leg lung apex and right upper lobe anteriorly suggestive of posttreatment changes. Findings suggestive of atelectasis in the right lower lobe. The left lung appears clear. No masses are identified. There are reticular densities in the right lower lobe and right middle lobe which may represent areas of scarring or atelectasis. Pleural space: There is a small right pleural effusion which appears loculated. Right pleural thickening is noted. Lower neck, lymph nodes, and mediastinum: The imaged thyroid gland is normal. No lymphadenopathy in the supraclavicular, axillary, mediastinal, or hilar regions. Heart, pericardium, and thoracic vessels: No evidence of aneurysm. The thoracic aorta is ectatic and tortuous. No pericardial effusion is identified. Bones and soft tissues: No destructive bone lesion. Chest wall is unremarkable. Upper abdomen: No abnormality in the imaged upper abdomen. Localizer images: [employer]/01/[facility]25 * * *Final Report* * * DATE OF EXAM: Feb 01 2025 3:57PM [facility] 0564 - CTA CHEST (NON GATED) W IVCON PE / PROCEDURE REASON: Elevated C-reactive protein (CRP) * * * * Physician Interpretation * * * * EXAMINATION: CHEST CTA (NON GATED) WITH CONTRAST (PULMONARY EMBOLISM PROTOCOL) Clinical History: Shortness of breath Technique: Spiral CT acquisition of the chest from the thoracic inlet to the upper abdomen following IV contrast. Axial 1 and 3 mm thick slices plus coronal and sagittal reformatted images. MQ: CTCP_5 Contrast: 100 mL Omnipaque [address] Radiation dose: Integrated Dose-length product (DLP) for this visit = 284.19 mGy*cm CT Dose Reduction Employed: mAs-kVp adjusted based on patient size-age CTA: Post-processed images (Maximum intensity Projection (MIP), Volume-rendered (VR), or Surface shaded display images (SSD) were created, reviewed and archived. Comparison: No relevant prior studies available. RESULT: Limitations: None. Evaluation for thromboembolic disease: - Right heart chambers: No thromboembolic disease. - Main pulmonary arteries: No thromboembolic disease. - Lobar pulmonary arteries: No thromboembolic disease. - Segmental pulmonary arteries: No thromboembolic disease. - Subsegmental pulmonary arteries: No thromboembolic disease. - Additional pulmonary artery findings: The main pulmonary artery is normal in caliber. Lines, tubes, and devices: None. Lung parenchyma and airways: There are peripheral reticular and groundglass opacities noted in the right leg lung apex and right upper lobe anteriorly suggestive of posttreatment changes. Findings suggestive of atelectasis in the right lower lobe. The left lung appears clear. No masses are identified. There are reticular densities in the right lower lobe and right middle lobe which may represent areas of scarring or atelectasis. Pleural space: There is a small right pleural effusion which appears loculated. Right pleural thickening is noted. Lower neck, lymph nodes, and mediastinum: The imaged thyroid gland is normal. No lymphadenopathy in the supraclavicular, axillary, mediastinal, or hilar regions. Heart, pericardium, and thoracic vessels: No evidence of aneurysm. The thoracic aorta is ectatic and tortuous. No pericardial effusion is identified. Bones and soft tissues: No destructive bone lesion. Chest wall is unremarkable. Upper abdomen: No abnormality in the imaged upper abdomen. Localizer images: IMPRESSION IMPRESSION: 1. No CT evidence of pulmonary embolism. 2. Loculated right pleural effusion Tourist Adviser: JAEL Transcribe Date/Time: Feb 01 2025 6:00P Dictated by : MAURICIO DAMON MD This examination was interpreted and the report reviewed and electronically signed by: MAURICIO DAMON MD on Feb 01 2025 6:05PM EST [facility] Radiology [facility]ative[facility] CTA Pulmonary arteries for p ulmonary embolus W contrast IVOrdered By: Ccf Provider on 02-01-2025 [facility] CNOVon 01-31-2025 CNOV Office Visit (FAMPWS ) BECKY HUFFMAN ([id number]) 1970 F Date Time Provider Department 01/31/25 1:00 PM BECKY IRELAND During your visit today, we recorded the following information about you: Pulse Respiration Blood pressure 109/minute 16/minute 116/78 Becky Ireland APRN.ATMOSPHERIC CHEMIST 01/31/2025 1:35 PM Addendum Continue taking Plaquenil as usual. Take your iron supplement on a Thursday, Thursday, Thursday schedule. Schedule CT scan today. Let us know what happens w/ GI. Recheck in 2 weeks. Becky Ireland APRN.CNP 01/31/2025 6:08 PM Signed This is a 54 year old female who presents today with: Becky is a 54-year-old female with a history of anemia, presenting for evaluation of elevated inflammatory markers and dyspnea. HISTORY OF PRESENT ILLNESS: Elevated Inflammatory Markers: - Recent lab work showed elevated inflammatory markers. - rheumatology put biologics back on hold. - Scheduled to see Merrill from Dr. Harrington's office on Thursday to r/o bleed. Anemia: - Recent lab work showed hemoglobin level of 9.2. - Did follow-up w/ hematology and iron changed to every other day dosing. - Taking iron supplements on Thursday, Thursday, and Thursday. Dyspnea: - Reports feeling winded after walking up two flights of stairs, which is a new symptom. - Denies palpitations. Continue to have a cough. Continues to have a catch when taking deep breaths. Some soreness on the right. Pleural Effusion: - Reports feeling a little catch when taking a deep breath. - Reports soreness where the fluid is located when coughing. - Experiences a tickle in the throat that does not bring anything up. Has upcoming appt with pulmonology. PAST MEDICAL HISTORY: PAST MEDICAL HISTORY Diagnosis Date Breast cancer (HCC) 2019 PMH - PAST MEDICAL HISTORY OF FATIGUE PMH - PAST MEDICAL HISTORY OF achy joints Premenstrual tension syndromes PMS Rheumatoid arthritis involving multiple sites ([facility]) 05/20/2021 Rheumatoid arthritis(714.0) PAST SURGICAL HISTORY Procedure Laterality Date COLONOSCOPY, COLORECTAL SCREEN 10/17/2019 Dr. Travis Elias, [facility]; 4mm sessile polyp in proximal sigmoid colon, many diverticula in sigmoid colon, repeat in 5yr's MASTECTOMY HX Bilateral 2019 with tissue flap reconstruction PAST SURGICAL HISTORY OF Right 12/28/2018 lumpectomy [facility] 2019 RADIATION THERAPY 2019 REMOVAL OF OVARY(S) Bilateral 02/2020 SALPINGECTOMY Bilateral 02/2020 TONSILLECTOMY PRIMARY/SECONDARY Tonsillectomy ALLERGIES Patient has no known allergies. MEDICATIONS Current Outpatient Medications Medication Sig iv contrast (will be provided with radiology test) CT Chest PE -Inject, intravenously, once for 1 dose.No IV access, insert saline lock prior to the beginning of sedation, infusion, injection of imaging exam. Discontinue saline lock post exam. If Pt. has a central line or IVAD, may access for administration according to line specific nursing protocol. Once exam is complete flush line and de-access according to line specific nursing protocol in the CT contrast administration guidelines link. ascorbic acid, vitamin C, (VITAMIN C) 500 mg tablet Take 1 tablet by mouth every Thursday, Thursday, and Thursday. anastrozole (ARIMIDEX) 1 mg tablet Take 1 tablet by mouth once daily. hydrOXYchloroQUINE (PLAQUENIL) 200 mg tablet Take 200 mg by mouth once daily. cholecalciferol, vitamin D3, (VITAMIN D3 ORAL) Take 2,000 Units by mouth once daily. certolizumab pegol (CIMZIA SUBCUTANEOUS) Inject 200 mg subcutaneously. Twice a month calcium carbonate/vitamin D3 (CALCIUM 600 + D ORAL) Take 1 tablet by mouth once daily. leflunomide (ARAVA) 20 mg tablet Take 20 mg by mouth once daily. ferrous sulfate 325 mg (65 mg iron) tablet Take 325 mg by mouth once daily. DAILY MULTIVITAMIN TAB Take 1 tablet by mouth once daily. No current facility-administered medications for this visit. FAMILY HISTORY Problem Relation Age of Onset Cancer Mother throat - radiation Cancer Father LUNG Hypertension Brother Diabetes Brother type 2 Hypertension Brother other (CHF) Maternal Grandfather Hypertension Paternal Grandfather Heart Paternal Grandfather No Known Problems Daughter Diabetes Son Type 1 Cancer Other Cancer Other Social History Tobacco Use Smoking status: Never Smokeless tobacco: Never Vaping Use Vaping status: Never Used Substance Use Topics Alcohol use: No Drug use: No EXAM: BP 116/78 Pulse 109 Resp 16 LMP 12/04/2016 SpO2 98% PHYSICAL EXAM: General Appearance: Well appearing, alert, in no acute distress, well-hydrated, well nourished.. Skin: Skin color, texture, turgor normal, no suspicious rashes or lesions. Head: Normocephalic, no masses, lesions, tenderness or abnormalities. Eyes: Anicteric sclera. Extraocular movements are intact. . (more content not included)... Normal [facility] ECHOon 01-31-2025 Echocardiography Echocardiography Report: Transthoracic Echo [facility] Date of service: 01/31/2025 3:14:37 PM Ordering physician: BECKY IRELAND Indication: Abnormal ECG Technologist: Ca Urrutia [facility] Interpreting physician: Linad Hawkins MD PATIENT: Name: MS. BECKY HUFFMAN : 1970 Age: 54 years Gender: F Primary rhythm: sinus. Height: 167.50 cm BSA: 1.68 m Weight: 60.33 kg BMI: 21.5 kg/m Heart rate 103 bpm Blood pressure 132/84 mmHg Technically difficult exam due to breast reconstruction. Color Doppler was utilized to interrogate the cardiac valves assessed and spectral Doppler was utilized to determine the flow velocities and pressure gradients reported in this exam. Myocardial strain analysis was performed in this exam to aid in the assessment of cardiac function. MEASUREMENTS: Value Indexed Normal Max aortic dimension 3.0 cm Ao < 3.8 Left atrial volume 41 ml (4ch A-L) 24 ml/m Yves <= 34 LV ID (diastole) 4.3 cm (2D) 2.59 cm/m LV ID (systole) 2.9 cm (2D) 1.74 cm/m IVS, leaflet tips 0.9 cm (2D) Posterior wall thickness 0.8 cm (2D) Left ventricular mass 107 g (2D) 64 g/m Global peak long strain -16.8 % LV stroke volume 35 ml (2D biplane) LV end diastolic volume 61 ml (2D biplane) 36.4 ml/m 29<=EDVi<62 LV end systolic volume 26 ml (2D biplane) 15.7 ml/m Ejection Fraction 57 % (2D biplane) EF > 54 FINDINGS: LEFT VENTRICLE The left ventricle is normal in size. Left ventricular systolic function is normal. Global LV myocardial strain is normal. Normal left ventricular diastolic function. Mitral annular lateral E/e': 4.6. Mitral annular septal E/e': 5.3. Wall Motion: All scored segments are normal. RIGHT VENTRICLE The right ventricle is normal in size. Right ventricular systolic function is normal. RV systolic tissue Doppler velocity is 13.0 cm/s. Tricuspid annular displacement is 1.7 cm. Estimated right ventricular systolic pressure is not reported due to an insufficient tricuspid regurgitation signal. Estimated right atrial pressure is 8 mmHg based on IVC assessment. LEFT ATRIUM The left atrial cavity is normal in size. Pulmonary Veins: The pulmonary venous pattern showed normal systolic flow. RIGHT ATRIUM The right atrial cavity is normal in size. Inferior Vena Cava: The inferior vena cava appears normal measuring 1.7 cm. The vessel decreases less than 50 percent with inspiration. MITRAL VALVE The mitral valve leaflets are structurally normal. There is no mitral valve regurgitation. The pressure half time is 39 msec. The peak mitral E/A ratio is 0.85. The average mitral E/e' ratio is 5.0. The mitral flow deceleration time is 134 msec. TRICUSPID VALVE The tricuspid valve leaflets are structurally normal. There is trace tricuspid valve regurgitation. AORTIC VALVE The aortic valve cusps are structurally normal. There is no aortic valve stenosis. There is no aortic valve regurgitation. Tricuspid aortic valve. The peak gradient is 8 mmHg (peak velocity = 141.6 cm/s). PULMONIC VALVE The pulmonic valve cusps are structurally normal. There is no pulmonic stenosis. There is trace pulmonic valve regurgitation. AORTA The visualized aorta is normal in size. Measurements - Mid ascending aorta 3.0 cm. INTERATRIAL SEPTUM There is no evidence of intracardiac shunting as detected by Doppler. PERICARDIUM There is no pericardial effusion. There is a pleural effusion. CONCLUSIONS: - Technically difficult exam due to breast reconstruction. - Exam indication: Abnormal ECG - The left ventricle is normal in size. Left ventricular systolic function is normal. EF = 57 5% (2D biplane). Normal left ventricular diastolic function. - The right ventricle is normal in size. Right ventricular systolic function is normal. - There are no significant valvular abnormalities. - Exam was compared with the prior echocardiographic exam performed on 01/06/2019, no significant change. * * * Final * * * [facility] : [id number] Normal [facility] Lizette 01-30-2025 LIAN Telephone (FAMNateWS) BECKY HUFFMAN ([id number]) 1970 F Date Time Provider Department 01/30/25 [facility] your visit today, we recorded the following information about you: Tj Enciso RN 01/30/2025 3:28 PM Signed Office of Padma Tee NP Rheumatology Crystal Arthitis called and reports provider would like to talk to this provider about lab results. They report the phone lines are open until 430. Please call at your convenience. CHEIKH Ang Christy, APRN.RAY 01/30/2025 4:26 PM Signed Attempted return call to provider. Left office for the day. Becky Ireland APRN.Ca Estrada RN 01/31/2025 8:49 AM Signed Office of Padma Christy calls and is asking provider to call number. CHEIKH Banks Christy, APRN.ATMOSPHERIC CHEMIST 01/31/2025 5:53 PM Signed See other phone encounter -- duplicate. Allergies As of Date: 01/30/2025 (No Known Allergies) Date Reviewed: 01/26/2025 Reviewed by: Blessing Quiroz LPN - Fully Assessed Prescriptions as of 01/31/2025 - iv contrast (will be provided with radiology test) CT Chest PE -Inject, intravenously, once for 1 dose.No IV access, insert saline lock prior to the beginning of sedation, infusion, injection of imaging exam. Discontinue saline lock post exam. If Pt. has a central line or IVAD, may access for administration according to line specific nursing protocol. Once exam is complete flush line and de-access according to line specific nursing protocol in the CT contrast administration guidelines link. - ascorbic acid, vitamin C, (VITAMIN C) 500 mg tablet Take 1 tablet by mouth every Thursday, Thursday, and Thursday. - anastrozole (ARIMIDEX) 1 mg tablet Take 1 tablet by mouth once daily. - hydrOXYchloroQUINE (PLAQUENIL) 200 mg tablet Take 200 mg by mouth once daily. - cholecalciferol, vitamin D3, (VITAMIN D3 ORAL) Take 2,000 Units by mouth once daily. - certolizumab pegol (CIMZIA SUBCUTANEOUS) Inject 200 mg subcutaneously. Twice a month - calcium carbonate/vitamin D3 (CALCIUM 600 + D ORAL) Take 1 tablet by mouth once daily. - leflunomide (ARAVA) 20 mg tablet Take 20 mg by mouth once daily. - ferrous sulfate 325 mg (65 mg iron) tablet Take 325 mg by mouth once daily. - DAILY MULTIVITAMIN TAB Take 1 tablet by mouth once daily. Problem List As Of Date 01/30/2025 Noted Resolved Climacteric [N95.1] 12/16/2013 Malignant neoplasm of central portion of right *12/23/2018 Rheumatoid arthritis involving multiple sites (*05/20/2021 Encounter Status:Closed by BECKY IRELAND on 01/31/25 [facility] CNPN Telephone (FAMPWS) BECKY HUFFMAN ([id number]) 1970 F Date Time Provider Department 01/30/25 BECKY IRELAND During your visit today, we recorded the following information about you: Winter Escoto LPN 01/30/2025 3:26 PM Signed Serenity PIN CHASER from [employer] calling wanted to talk to eBcky Ireland about patients labs, Sed rate 85 and CRP is 9.7 she stopped her biologic.She had faxed her lab results to the office. Serenity is available until 4 pm. Becky Ireland APRN.CNP 01/30/2025 4:26 PM Signed Attempted phone call. Serenity/Padma is out of the office for the day. Becky Ireland APRN.Becky Dutta APRN.CNP 01/31/2025 5:57 PM Signed Phone call returned to Serenity. Wanted to ensure we were aware of elevated inflammatory markers. She put biologics back on hold until further eval. Allergies As of Date: 01/30/2025 (No Known Allergies) Date Reviewed: 01/26/2025 Reviewed by: Blessing Quiroz LPN - Fully Assessed Reason for Visit: PIN CHASER would like to talk to Becky Ireland [Other] Prescriptions as of 01/31/2025 - iv contrast (will be provided with radiology test) CT Chest PE -Inject, intravenously, once for 1 dose.No IV access, insert saline lock prior to the beginning of sedation, infusion, injection of imaging exam. Discontinue saline lock post exam. If Pt. has a central line or IVAD, may access for administration according to line specific nursing protocol. Once exam is complete flush line and de-access according to line specific nursing protocol in the CT contrast administration guidelines link. - ascorbic acid, vitamin C, (VITAMIN C) 500 mg tablet Take 1 tablet by mouth every Thursday, Thursday, and Thursday. - anastrozole (ARIMIDEX) 1 mg tablet Take 1 tablet by mouth once daily. - hydrOXYchloroQUINE (PLAQUENIL) 200 mg tablet Take 200 mg by mouth once daily. - cholecalciferol, vitamin D3, (VITAMIN D3 ORAL) Take 2,000 Units by mouth once daily. - certolizumab pegol (CIMZIA SUBCUTANEOUS) Inject 200 mg subcutaneously. Twice a month - calcium carbonate/vitamin D3 (CALCIUM 600 + D ORAL) Take 1 tablet by mouth once daily. - leflunomide (ARAVA) 20 mg tablet Take 20 mg by mouth once daily. - ferrous sulfate 325 mg (65 mg iron) tablet Take 325 mg by mouth once daily. - DAILY MULTIVITAMIN TAB Take 1 tablet by mouth once daily. Problem List As Of Date 01/30/2025 Noted Resolved Climacteric [N95.1] 12/16/2013 Malignant neoplasm of central portion of right *12/23/2018 Rheumatoid arthritis involving multiple sites (*05/20/2021 Encounter Status:Closed by BECKY IRELAND on 01/31/25 Normal [facility] CBC W Auto Differential pane l (Bld)on 01-27-2025 Basophils (Bld) [#/Vol] 0.09 10*3/uL Normal <0.11 [facility] Comment on above: Order Comment: Speci men Type: BLOOD SPECIMENOrdering Facility: [facility] Address: [address] [place] [address] Performed By: #### 5 7021-8 ####[facility] LABCLIA [id number] [place] [address] [place] Basophils/100 WBC (Bld) 0.8 % Normal C [facility] Comment on above: Order Comment: Speci men Type: BLOOD SPECIMENOrdering Facility: [facility] Address: [address] [place] [address] Performed By: #### 5 7021-8 ####[facility] LABIA [id number] [place] [address] [place] Differential cell count method Nom (Bld) Auto Normal [facility] Comment on above: Order Comment: Speci men Type: BLOOD SPECIMENOrdering Facility: [facility] Address: [address] [place] [address] Performed By: #### 5 7021-8 ####[facility] LABCLIA [id number] [address], [place] [address] [place] Eosinophils (Bld) [#/Vol] 0.14 10*3/uL Normal <0.46 [facility] Comment on above: Order Comment: Speci men Type: BLOOD SPECIMENOrdering Facility: [facility] Address: [address] [place] [address] Performed By: #### 5 7021-8 ####[facility] LABCLIA [id number] [address], [place] [address] [place] Eosinophils/100 WBC (Bld) 1.2 % Normal [facility] Comment on above: Order Comment: Speci men Type: BLOOD SPECIMENOrdering Facility: [facility] Address: [address] [place] [address] Performed By: #### 5 7021-8 ####[facility] LABCLIA [id number] [address], [place] [address] [place] Erythrocyte distribution width (RBC) [Ratio] 14.6 % Normal 11.5-15.0 [facility] Comment on above: Order Comment: Speci men Type: BLOOD SPECIMENOrdering Facility: [facility] Address: [address] [place] [address] Performed By: #### 5 7021-8 ####[facility] LABCLIA [id number] [facility] [address], [facility] [place] Hematocrit (Bld) [Volume fraction] 29.5 % Low 36.0-46.0 [facility] Comment on above: Order Comment: Speci men Type: BLOOD SPECIMENOrdering Facility: [facility] Address: [address] [place] [address] Performed By: #### 5 7021-8 ####[facility] LABCLIA [id number] [address], [facility] [place] Hemoglobin (Bld) [Mass/Vol] 9.2 g/dL Low 11.5-15.5 [facility] Comment on above: Order Comment: Speci men Type: BLOOD SPECIMENOrdering Facility: [facility] Address: [address] [place] [address] Performed By: #### 5 7021-8 ####[facility] LABCLIA [id number] [place] [address] [place] Immature granulocytes (Bld) [#/Vol] 0.04 10*3/uL Normal <0.10 [facility] Comment on above: Order Comment: Speci men Type: BLOOD SPECIMENOrdering Facility: [facility] Address: [address] [place] [address] Performed By: #### 5 7021-8 ####[facility] LABCLIA [id number] [place] [address] [place] Immature granulocytes/100 WBC (Bld) 0.3 % Normal [facility] Comment on above: Order Comment: Speci men Type: BLOOD SPECIMENOrdering Facility: [facility] Address: [address] [place] [address] Performed By: #### 5 7021-8 ####[facility] LABCLIA [id number] [place] [address] [place] Lymphocytes (Bld) [#/Vol] 3.14 10*3/uL Normal 1.00-4.00 [facility] Comment on above: Order Comment: Speci men Type: BLOOD SPECIMENOrdering Facility: [facility] Address: [address] [place] [address] Performed By: #### 5 7021-8 ####[facility] LABCLIA [id number] [place] [address] [place] Lymphocytes/100 WBC (Bld) 26.7 % Normal [facility] Comment on above: Order Comment: Speci men Type: BLOOD SPECIMENOrdering Facility: [facility] Address: [address] [place] [address] Performed By: #### 5 7021-8 ####[facility] LABCLIA [id number] [place] [address] [place] MCH (RBC) [Entitic mass] 29.1 pg Normal 26.0-34.0 [facility] Comment on above: Order Comment: Speci men Type: BLOOD SPECIMENOrdering Facility: [facility] Address: [address] [place] [address] Performed By: #### 5 7021-8 ####[facility] LABIA [id number] [place] [address] [place] MCHC (RBC) [Mass/Vol] 31.2 g/dL Normal 30.5-36.0 [facility] Comment on above: Order Comment: Speci men Type: BLOOD SPECIMENOrdering Facility: [facility] Address: [address] [place] [address] Performed By: #### 5 7021-8 ####[facility] LABIA [id number] [place] [address] [place] MCV (RBC) [Entitic vol] 93.4 fL Normal 80.0-100.0 C [facility] Comment on above: Order Comment: Speci men Type: BLOOD SPECIMENOrdering Facility: [facility] Address: [address] [place] [address] Performed By: #### 5 7021-8 ####[facility] LABCLIA [id number] [place] [id number] [place] Monocytes (Bld) [#/Vol] 1.48 10*3/uL High <0.87 [facility] Comment on above: Order Comment: Speci men Type: BLOOD SPECIMENOrdering Facility: [facility] Address: [address] [place] [address] Performed By: #### 5 7021-8 ####[facility] LABCLIA [id number] [place] [address] [place] Monocytes/100 WBC (Bld) 12.6 % Normal [facility] Comment on above: Order Comment: Speci men Type: BLOOD SPECIMENOrdering Facility: [facility] Address: [address] [place] [address] Performed By: #### 5 7021-8 ####[facility] LABCLIA [id number] [place] [address] [place] Neutrophils (Bld) [#/Vol] 6.85 10*3/uL Normal 1.45-7.50 [facility] Comment on above: Order Comment: Speci men Type: BLOOD SPECIMENOrdering Facility: [facility] Address: [address] [place] [address] Performed By: #### 5 7021-8 ####[facility] LABCLIA [id number] [place] [address] [place] Neutrophils/100 WBC (Bld) 58.4 % Normal [facility] Comment on above: Order Comment: Speci men Type: BLOOD SPECIMENOrdering Facility: [facility] Address: [address] [place] [address] Performed By: #### 5 7021-8 ####[facility] LABCLIA [id number] [place] [address] [place] Nucleated RBC (Bld) [#/Vol] 10*3/uL Normal <0.01 [facility] Comment on above: Order Comment: Speci men Type: BLOOD SPECIMENOrdering Facility: [facility] Address: [address] [place] [address] Performed By: #### 5 7021-8 ####[facility] LABCLIA [id number] [place] [address] [place] Nucleated RBC/100 WBC (Bld) [Ratio] 0.0 /100 WBC Normal [facility] Comment on above: Order Comment: Speci men Type: BLOOD SPECIMENOrdering Facility: [facility] Address: [address] [place] [address] Performed By: #### 5 7021-8 ####[facility] LABIA [id number] [address] [address] [place] Platelet mean volume (Bld) [Entitic vol] 8.8 fL Low 9.0-12.7 [facility] Comment on above: Order Comment: Speci men Type: BLOOD SPECIMENOrdering Facility: [facility] Address: [address] [place] [address] Performed By: #### 5 7021-8 ####[facility] LABIA [id number] [place] [address] [place] Platelets (Bld) [#/Vol] 569 10*3/uL High 150-400 [facility] Comment on above: Order Comment: Speci men Type: BLOOD SPECIMENOrdering Facility: [facility] Address: [address] [place] [address] Performed By: #### 5 7021-8 ####[facility] LABIA [id number] [place] [address] [place] RBC (Bld) [#/Vol] 3.16 10*6/uL Low 3.90-5.20 [facility] Comment on above: Order Comment: Speci men Type: BLOOD SPECIMENOrdering Facility: [facility] Address: [address] [place] [address] Performed By: #### 5 7021-8 ####[facility] LABIA [id number] [place] [id number] [place] WBC (Bld) [#/Vol] 11.74 10*3/uL High 3.70-11.00 [facility] Comment on above: Order Comment: Speci men Type: BLOOD SPECIMENOrdering Facility: [facility] Address: [address] [place] [address] Performed By: #### 5 7021-8 ####[facility] LABCLIA [id number] [place] [address] [place] COPPER BLOODon 01-27-2025 Copper [Mass/Vol] 183 ug/dL High 80-155 [facility] Comment on above: Order Comment: Speci men Type: BLOOD SPECIMENOrdering Facility: [facility] Address: [address] [place] [address] Result Comment: This test was developed, and its performance characteristics determined by the [facility] Department of Pathology and Laboratory Medicine. It has not been cleared or approved by the FDA. The [facility] Department of Pathology and Laboratory Medicine is regulated under CLIA as qualified to perform high-complexity testing. This test is used for clinical purposes. It should not be regarded as investigational or for research. Performed By: #### 5 763-8, COPPER ####[facility] LABIA [id number] [place] [address] [place] Ferritin SerPl-mCncon 2024 Ferritin [Mass/Vol] 875.0 ng/mL High 14.7-205.1 [facility] Comment on above: Order Comment: Speci men Type: BLOOD SPECIMENOrdering Facility: [facility] Address: [address] [place] [address] Performed By: #### 2 276-4, 05695-1 ####[facility] LABIA [id number] [place] [address] [place] Iron and Iron binding capaci ty panelon 01-27-2025 Iron [Mass/Vol] 19 ug/dL Low 41-186 [facility] Comment on above: Order Comment: Speci men Type: BLOOD SPECIMENOrdering Facility: [facility] Address: [address] [place] [address] Performed By: #### 2 276-4, 82323-1 ####[facility] LABIA [id number] [place] [address] [place] Iron binding capacity [Mass/Vol] 209 ug/dL Low 232-386 [facility] Comment on above: Order Comment: Speci men Type: BLOOD SPECIMENOrdering Facility: [facility] Address: [address] [place] [address] Performed By: #### 2 276-4, 81214-9 ####[facility] LABCLIA [id number] [address] OF [facility] Iron/TIBC [Molar ratio] 9.1 % Low 15.0-57.0 C [facility] Comment on above: Order Comment: Speci men Type: BLOOD SPECIMENOrdering Facility: [facility] Address: [address] [place] [address] Performed By: #### 2 276-4, 69190-3 ####[facility] LABCLIA [id number] [address] OF [facility] VITAMIN Con 01-27-2025 VITAMIN C 30 umol/L Normal 23-114 [facility] Comment on above: Order Comment: Speci men Type: BLOOD SPECIMENOrdering Facility: [facility] Address: [address] [place] [address] Result Comment: Henrietta min C concentrations lower than 11 umol/L indicate deficiency. Concentrations between 11 and 23 umol/L are consistent with a moderate risk of deficiency due to inadequate tissue stores. Vitamin C concentration is reported as micromoles per liter (umol/L). To convert concentration to milligrams per deciliter (mg/dL), multiply the result by 0.0176. This test was developed and its performance characteristics determined by [facility]. It has not been cleared or approved by the US Food and Drug Administration. This test was performed in a CLIA certified laboratory and is intended for clinical purposes. Performed By: [facility] [address] [place] [address] Automatic Fancy Machine Operator: Lit Pierce MD, PhD CLIA Number: [id number] Performed By: #### V ITC ####[facility] [id number] [place] [id number] [facility] Zinc [Mass/Vol] 45 ug/dL Low 60-120 [facility] Comment on above: Order Comment: Agatha horner Type: BLOOD SPECIMENOrdering Facility: [facility] Address: [address] [place] [address] Result Comment: This test was developed, and its performance characteristics determined by the [facility] Department of Pathology and Laboratory Medicine. It has not been cleared or approved by the FDA. The [facility] Department of Pathology and Laboratory Medicine is regulated under CLIA as qualified to perform high-complexity testing. This test is used for clinical purposes. It should not be regarded as investigational or for research. Performed By: #### 5 763-8, COPPER ####[facility] LABCLIA [id number] [place] [address] [place] CNOVSPon 01-26-2025 CNOVSP Visit (SP) Office (HEMAWS) BECKY HUFFMAN ([id number]) 1970 F Date Time Provider Department 01/26/25 1:00 PM FRAN GOMEZ During your visit today, we recorded the following information about you: Temperature Pulse Blood pressure Weight 98.4 degrees 127/minute 123/82 60.8 kg Fran Gomez 01/27/2025 2:55 PM Signed Progress Note Becky Huffman 1970 Encounter date: 01/27/2025 Cancer Staging Malignant neoplasm of central portion of right breast in female, estrogen receptor positive (HCC) Staging form: Breast, AJCC 8th Edition - Pathologic stage from 01/04/2019: Stage IB (pT1c, pN2a, cM0, G2, ER+, AZ+, HER2-) - Signed by Sis Stockton on 01/04/2019 HPI: Becky Huffman is a 54 year old female presenting today for new anemia. 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 ER positive (>95%, moderate), AZ positive (24%, weak), and Her2/izzy 2+ and dual LEIDY negative. s/p adjuvant chemotherapy with AC followed by Taxol. Radiation completed 09/14/19. S/p b/l mastectomy OTILIA at [facility]. On AI since 2019. She is following regularly for surveillance of breast ca with Adelina Luis APRN.ATMOSPHERIC CHEMIST Recent admission to [facility] with septic arthritis following influenza A initally dx 11/23/24. Has been ill since flu a, now recovering. Had to have all joints cleaned out. Feels that she is doing a lot more since discharge, more PT. Feeling around 70% back to baseline. Constant dull ache arms, has been better ROM has improved in the last week. Has been feeling woozy worse the last few weeks prompting her to follow up with PCP. Overall stable today. No worsening dizziness. Low BP and tachy, was on lisinopril and amlodipine, however due to hypotension these were discontinued by PCP. Current work up by PCP. Abnormal EKG during admission. Scheduled for ECHO next week. Feels a catch under ribs with deep breath. Pleural effusion noted on recent CTA from admission. She is trying to gain weight back, health healthy well balanced diet. Drinking premier protein drink in the am. Eating iron rich foods.Taking PO iron TID, dicussed that last do not reflect YISEL, but appears to look more like anemia of chronic disease/inflammation with high ferritin, low TIBC. No significant changes in bowel habits. A little more constipation with increase in PO iron, but manageable. She is referred to see Dr Harrington, sister in law works in his office. Last scope Dr Elias 2018. On plaquenil, arava, cimzia. Lots of standing for work. 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 She has not gone back to work yet. Follows with Dr Corral for RA. Multivitamin, vitamin d + calcium, PAST MEDICAL HISTORY Diagnosis Date Breast cancer (HCC) 2018 PMH - PAST MEDICAL HISTORY OF FATIGUE PMH - PAST MEDICAL HISTORY OF achy joints Premenstrual tension syndromes PMS Rheumatoid arthritis involving multiple sites (HCC) 05/20/2021 Rheumatoid arthritis(714.0) PAST SURGICAL HISTORY Procedure Laterality Date COLONOSCOPY, COLORECTAL SCREEN 10/17/2019 Dr. Travis Elias, [facility]; 4mm sessile polyp in proximal sigmoid colon, many diverticula in sigmoid colon, repeat in 5yr's MASTECTOMY HX Bilateral 2019 with tissue flap reconstruction PAST SURGICAL HISTORY OF Right 12/28/2018 lumpectomy PROVIDE CHEMOTHERAPY AGENT 2019 RADIATION THERAPY 2019 REMOVAL OF OVARY(S) Bilateral 02/2020 SALPINGECTOMY Bilateral 02/2020 TONSILLECTOMY PRIMARY/SECONDARY Tonsillectomy Current Outpatient Medications Medication Sig Dispense Refill anastrozole (ARIMIDEX) 1 mg tablet Take 1 tablet by mouth once daily. 90 tablet 3 hydrOXYchloroQUINE (PLAQUENIL) 200 mg tablet Take 200 mg by mouth once daily. cholecalciferol, vitamin D3, (VITAMIN D3 ORAL) Take 2,000 Units by mouth once daily. certolizumab pegol (CIMZIA SUBCUTANEOUS) Inject 200 mg subcutaneously. Twice a month calcium carbonate/vitamin D3 (CALCIUM 600 + D ORAL) Take 1 tablet by mouth once daily. leflunomide (ARAVA) 20 mg tablet Take 20 mg by mouth once daily. ferrous sulfate 325 mg (65 mg iron) tablet Take 325 mg by mouth once daily. DAILY MULTIVITAMIN TAB Take 1 tablet by mouth once daily. 0 ascorbic acid, vitamin C, (VITAMIN C) 500 mg tablet Take 1 tablet by mouth every Thursday, Thursday, and Thursday. 90 tablet 0 iv contrast (will be provided with radiology test) CT Chest ABD/PEL-Inject, intravenously, once for 1 dose.No IV access, insert saline lock prior to the beginning of sedation, infusion, injection of imaging exam. Discontinue saline lock post exam. If Pt. has a central line or IVAD, may access for administration according to line specific nursing protocol. Once exam is complete flush line and de-access according to line specifi (more content not included)... Normal [facility] CNOVon 01-23-2025 CNOV Office Visit (FAMPWS ) BECKY HUFFMAN ([id number]) 1970 F Date Time Provider Department 01/23/25 6:20 PM BECKY IRELAND During your visit today, we recorded the following information about you: Pulse Respiration Blood pressure Weight 123/minute 16/minute 120/98 60.3 kg Becky Ireland APRN.CNP 01/23/2025 7:04 PM Signed - Start taking Metoprolol, half a tablet once a day, to help slow your heart rate; prescription sent to your pharmacy. - Discontinue Lisinopril. - Continue taking your current iron supplements. - Stay well-hydrated; aim to drink water throughout the day. - Monitor your blood pressure at home using a cuff from the drugstore. - Complete blood work at the end of the week to check your blood count. - Referral to a asset protection assistant has been made; they will contact you to schedule an appointment if necessary. - Referral to a mortgage branch manager (GI) has been made; they will contact you to schedule an appointment. - An echocardiogram (ultrasound of the heart) has been ordered; the imaging center will contact you to schedule this test. Becky Ireland APRN.CNP 01/23/2025 7:37 PM Signed This is a 54 year old female who presents today with: Becky is a 54-year-old female with a history of RA, presenting for evaluation of tachycardia, anemia, and rectal bleeding. HISTORY OF PRESENT ILLNESS: Tachycardia: - Reports feeling woozy more often. - Experiences dyspnea with exertion, such as climbing stairs. - Denies palpitations. - Amlodipine was recently discontinued. She is off the lisinopril due to out of medication. - Inquires about methods to check blood pressure at home. Anemia: - Recent hemoglobin level of 8.5 g/dL at [facility]. - Taking iron supplements: 65 mg BID. - Reports constipation, attributing it to iron supplementation. - Attempting to maintain hydration. - Recent weight loss; desires to regain weight. - Consuming a balanced diet, including potatoes, meat, broccoli, and eggs. - Taking calcium and vitamin D3 supplements. Rectal Bleeding: - Noticed blood on toilet paper after a bowel movement during a recent ER visit. - Experienced spotting for about 5 days, but no bleeding in the past 5-6 days. - Denies vaginal bleeding or hematuria. - Recent stool sample was negative for blood. 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 Rheumatoid Arthritis: - Follow-up with insurance and benefits clerk Dr. Mauricio Self scheduled for Thursday. - Recent history of sepsis related to RA. PAST MEDICAL HISTORY: PAST MEDICAL HISTORY Diagnosis Date Breast cancer (HCC) 2019 PMH - PAST MEDICAL HISTORY OF FATIGUE PMH - PAST MEDICAL HISTORY OF achy joints Premenstrual tension syndromes PMS Rheumatoid arthritis involving multiple sites (HCC) 05/20/2021 Rheumatoid arthritis(714.0) PAST SURGICAL HISTORY Procedure Laterality Date COLONOSCOPY, COLORECTAL SCREEN 10/17/2019 Dr. Travis Elias, [facility]; 4mm sessile polyp in proximal sigmoid colon, many diverticula in sigmoid colon, repeat in 5yr's MASTECTOMY HX Bilateral 2019 with tissue flap reconstruction PAST SURGICAL HISTORY OF Right 12/28/2018 lumpectomy PROVIDE CHEMOTHERAPY AGENT 2019 RADIATION THERAPY 2019 REMOVAL OF OVARY(S) Bilateral 02/2020 SALPINGECTOMY Bilateral 02/2020 TONSILLECTOMY PRIMARY/SECONDARY Tonsillectomy ALLERGIES Patient has no known allergies. MEDICATIONS Current Outpatient Medications Medication Sig anastrozole (ARIMIDEX) 1 mg tablet Take 1 tablet by mouth once daily. hydrOXYchloroQUINE (PLAQUENIL) 200 mg tablet Take 200 mg by mouth once daily. cholecalciferol, vitamin D3, (VITAMIN D3 ORAL) Take 2,000 Units by mouth once daily. certolizumab pegol (CIMZIA SUBCUTANEOUS) Inject 200 mg subcutaneously. Twice a month calcium carbonate/vitamin D3 (CALCIUM 600 + D ORAL) Take 1 tablet by mouth once daily. leflunomide (ARAVA) 20 mg tablet Take 20 mg by mouth once daily. ferrous sulfate 325 mg (65 mg iron) tablet Take 325 mg by mouth once daily. DAILY MULTIVITAMIN TAB Take 1 tablet by mouth once daily. No current facility-administered medications for this visit. FAMILY HISTORY Problem Relation Age of Onset Cancer Mother throat - radiation Cancer Father LUNG Hypertension Brother Diabetes Brother type 2 Hypertension Brother other (CHF) Maternal Grandfather Hypertension Paternal Grandfather Heart Paternal Grandfather No Known Problems Daughter Diabetes Son Type 1 Cancer Other Cancer Other Social History Tobacco Use Smoking status: Never Smokeless tobacco: Never Vaping Use Vaping status: Never Used Substance Use Topics Alcohol use: No Drug use: No REVIEW OF SYSTEMS Constitutional: (+) fatigue, (+) weakness, (+) weight loss Cardiovascular: (+) tachycardia, (-) palpitations Respiratory: (+) cough, (+) shortness of (more content not included)... [facility] ([id number]) 1970 F Date Time Provider Department 01/23/25 BECKY IRELAND [facility] During your visit today, we recorded the following information about you: Becky Ireland, GEMMA.ATMOSPHERIC CHEMIST 01/23/2025 7:17 PM Signed Pt in for recheck. Was in the ER on 01/13 and Hgb - 8.5. Continues with tachycardia and episodes of feeling woozy. She is taking po iron twice daily. Referral to heme-onc for eval of anemia and tx options. Shraddha House RN 01/24/2025 9:39 AM Signed PSS- Per Fran, please make patient a new anemia consult. Would she be able to come in on at 1:00 pm? Schedule for an hour appointment. CHEIKH Plasencia Angela 01/24/2025 10:26 AM Signed Spoke with patient and scheduled with Fran at 1:00 Monisha Gilliam Allergies As of Date: 01/23/2025 (No Known Allergies) Date Reviewed: 12/27/2024 Reviewed by: Castro Hall LPN - Fully Assessed Primary Visit Diagnosis:Iron deficiency anemia, unspecified iron deficiency anemia type [D50.9] Order(s):CONSULT TO HEMATOLOGY/ONCOLOGY [19991019] Order #: [id number]: 1 FUTURE Prescriptions as of 01/24/2025 - anastrozole (ARIMIDEX) 1 mg tablet Take 1 tablet by mouth once daily. - hydrOXYchloroQUINE (PLAQUENIL) 200 mg tablet Take 200 mg by mouth once daily. - cholecalciferol, vitamin D3, (VITAMIN D3 ORAL) Take 2,000 Units by mouth once daily. - certolizumab pegol (CIMZIA SUBCUTANEOUS) Inject 200 mg subcutaneously. Twice a month - calcium carbonate/vitamin D3 (CALCIUM 600 + D ORAL) Take 1 tablet by mouth once daily. - leflunomide (ARAVA) 20 mg tablet Take 20 mg by mouth once daily. - ferrous sulfate 325 mg (65 mg iron) tablet Take 325 mg by mouth once daily. - DAILY MULTIVITAMIN TAB Take 1 tablet by mouth once daily. 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 N [facility] ORIGINAL REPORT ON FILE IN LAB CONTAINS ADDITIONAL TEST SITE INFORMATION. Normal [facility] Comment on above: Performed By: #### L 500.2500, L100.0100 #### [facility] [address] [place], [address] Fungus Stain 8136on 01-19-20 [facility]ST Comments: collected in or rt shoulder synovial fluid Is this test to exclude patient from TB Isolation? N TESTING PERFORMED AT [facility]. ORIGINAL REPORT ON FILE IN LAB CONTAINS ADDITIONAL TEST SITE INFORMATION. Fungus Stain No fungus observed. Normal [facility] Comment on above: Performed By: #### L 500.2500, L100.0100 #### [facility] [address] [place], [place], [id number] Inital Evaluation (1) - PTon 01-16-2025 Inital Evaluation (1) - PT [facility] Physical Therapy [address] [place] [address] / REHABILITATION SERVICES INITIAL EVALUATION MR#: [id number] Acct: [id number] Name: BECKY HUFFMAN Rep #: [id number] : 1970 54 From: López Cameron PT, ATC Referring Dr.: CLOTILDE Meraz Status: REG [facility] Insurance: [facility] [id number] [place] [address] SELF PAY INSURANCE Patient's Visit Information Visit Information Visit Information: BECKY HUFFMAN is a 54 year old F referred to Physical Therapy by CLOTILDE Meraz with a diagnosis of B shoulder OA 12/15/24. Date of Evaluation: 01/16/25 Physical Therapist: López Cameron, PT, ATC Visit Plan Frequency: 2-3x /Week Duration: 4-6 Weeks Plan: B shoulder PROM/mobs, rotator cuff strengthening, scap stab ex's, UBE, and HEP Subjective Subjective: DOS: 12/15/24. Pt reports she had influenza A at the time and notes this lead to an infection in her L wrist and B shoulders. Pt reports she is feeling better overall, but notes she continues to have difficulty with overhead activity. Pt denies any tingling or numbness in UE's. My arms just feel heavy. Pt denies prior Hx of B shoulder surgery. Pt notes she is sleeping better overall, but notes she continues to experience difficulty secondary to pain. Pt notes she sleeps on her recliner couch at this time. Pt is R hand dominant. 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 L shoulder pain ranges from 0-5/10, while R shoulder pain ranges from 5-8/10. Objective Objective: Neuro: B UE sensation is WNL to light touch. B bicipital reflex= 1/3 observation: Incisions healed. No signs of infection ROM: L shoulder flex= 120, abd= 115, ER= 40, IR= WNL; R shoulder flex= 80, abd= 65, ER= 40, IR= Moderately limited MMT: L shoulder flex= 6, abd= 11, ER= 8, IR= 13 #F; R shoulder flex= 0, abd= 6, ER= 7, IR= 9 #F Balance/Special Test Scores Quick DASH Score: 56.8175 Goals Goal 1:: Decrease B shoulder pain x 50% to aid with sleep Goal Time Frame: 4-6 Weeks Goal 2:: Increase B shoulder flexion and abduction ROM x 30 degrees to aid with overhead lifting Goal Time Frame: 4-6 Weeks Goal 3:: Increase B shoulder strength x 5-10#F to aid with RTW without limitation Goal Time Frame: 4-6 Weeks Goal 4:: I with HEP Goal Time Frame: 4-6 Weeks Rehabilitation Potential Physical Therapy Diagnosis: Pt has B shoulder pain, weakness, and limited ROM secondary to B shoulder arthroscopy Rehabilitation Potential: Good Anticipated Interventions Patient/Client Instruction: Educate patient on: Condition and Plan of Care For the Purpose of:: To improve self management Therapeutic Exercise to Include: Strength training, Endurance training, Flexibilty training, Passive ROM, Active ROM and Scapular Strength/Stabilization For the Purpose of:: To decrease pain, To increase ROM and To improve muscle performance and motor function Cryotherapy (ice pack, ice massage): Yes For the Purpose of:: To decrease pain Text: Thank you for the opportunity to evaluate your patient. For Medicare and Medicare HMO plans, please review the plan of care and approve it. It will need to be FAXED BACK to us at [phone] for Medicare purposes. For Medicare only, by signing this I certify the plan of care. Please let me know if there are questions or concerns regarding this plan of care. Physician Signature: Date:__ 01/16/25 2045 CC: ELIZABETH Ireland; CLOTILDE Meraz [facility] Signed Normal [facility] Inital Evaluation (1) - PT [facility] Physical Therapy [facility] [address] [place] [address]. [address] [place] [address] / REHABILITATION SERVICES INITIAL EVALUATION MR#: [id number] Acct: [id number] Name: BECKY HUFFMAN Rep #: [id number] : 1970 54 From: López Cameron PT, ATC Referring Dr.: CLOTILDE Meraz Status: REG R Insurance: [facility] [id number] [facility] SELF PAY INSURANCE Patient's Visit Information Visit Information Visit Information: BECKY HUFFMAN is a 54 year old F referred to Physical Therapy by CLOTILDE Meraz with a diagnosis of B shoulder OA 12/15/24. Date of Evaluation: 01/16/25 Physical Therapist: López Cameron, PT, ATC Visit Plan Frequency: 2-3x /Week Duration: 4-6 Weeks Plan: B shoulder PROM/mobs, rotator cuff strengthening, scap stab ex's, UBE, and HEP Subjective Subjective: DOS: 12/15/24. Pt reports she had influenza A at the time and notes this lead to an infection in her L wrist and B shoulders. Pt reports she is feeling better overall, but notes she continues to have difficulty with overhead activity. Pt denies any tingling or numbness in UE's. My arms just feel heavy. Pt denies prior Hx of B shoulder surgery. Pt notes she is sleeping better overall, but notes she continues to experience difficulty secondary to pain. Pt notes she sleeps on her recliner couch at this time. Pt is R hand dominant. 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 L shoulder pain ranges from 0-5/10, while R shoulder pain ranges from 5-8/10. Objective Objective: Neuro: B UE sensation is WNL to light touch. B bicipital reflex= 1/3 observation: Incisions healed. No signs of infection ROM: L shoulder flex= 120, abd= 115, ER= 40, IR= WNL; R shoulder flex= 80, abd= 65, ER= 40, IR= Moderately limited MMT: L shoulder flex= 6, abd= 11, ER= 8, IR= 13 #F; R shoulder flex= 0, abd= 6, ER= 7, IR= 9 #F Balance/Special Test Scores Quick DASH Score: 56.8175 Goals Goal 1:: Decrease B shoulder pain x 50% to aid with sleep Goal Time Frame: 4-6 Weeks Goal 2:: Increase B shoulder flexion and abduction ROM x 30 degrees to aid with overhead lifting Goal Time Frame: 4-6 Weeks Goal 3:: Increase B shoulder strength x 5-10#F to aid with RTW without limitation Goal Time Frame: 4-6 Weeks Goal 4:: I with HEP Goal Time Frame: 4-6 Weeks Rehabilitation Potential Physical Therapy Diagnosis: Pt has B shoulder pain, weakness, and limited ROM secondary to B shoulder arthroscopy Rehabilitation Potential: Good Anticipated Interventions Patient/Client Instruction: Educate patient on: Condition and Plan of Care For the Purpose of:: To improve self management Therapeutic Exercise to Include: Strength training, Endurance training, Flexibilty training, Passive ROM, Active ROM and Scapular Strength/Stabilization For the Purpose of:: To decrease pain, To increase ROM and To improve muscle performance and motor function Cryotherapy (ice pack, ice massage): Yes For the Purpose of:: To decrease pain Text: Thank you for the opportunity to evaluate your patient. For Medicare and Medicare HMO plans, please review the plan of care and approve it. It will need to be FAXED BACK to us at [phone] for Medicare purposes. For Medicare only, by signing this I certify the plan of care. Please let me know if there are questions or concerns regarding this plan of care. Physician Signature: Date:__ 01/16/25 1651 CC: ELIZABETH Ireland; CLOTILDE Meraz [facility] Signed Normal [facility] Hemoccult Stl Ql IAon 2024 Lower GI hemoglobin IA Ql (Stl) Negative Normal Negative [facility] Comment on above: Order Comment: Speci men Type: STOOL SPECIMENOrdering Facility: [facility] Address: [address] [place] [address] Performed By: #### 2 9771-3 ####[facility] [id number] [address] [place] 12 Lead EKGon 01-13-2025 12 Lead EKG [facility] Cardiovascular Services [address] [place] [address] 12 Lead EKG 01/13/25 1109 MR#: [id number] Acct: [id number] Name: BECKY HUFFMAN Rep #: [id number] : 1970 54 From: Joseph Acosta MD Attending Dr: Status: DEP ER Ordering Dr: Rodrigue Arguello DO Date: 01/13/25 Location: ED Sex: F C Admitted: Test Reason : TACHYCARDIA Blood Pressure : */* mmHG Vent. Rate : 113 BPM Atrial Rate : 113 BPM P-R Int : 114 ms QRS Dur : 70 ms QT Int : 296 ms P-R-T Axes : 56 -4 43 degrees QTcB Int : 406 ms Sinus tachycardia Otherwise normal ECG Confirmed by JOSEPH ACOSTA MD ([id number]), content editor JERI ELLISON ([id number]) on 01/16/2025 9:16:26 AM Referred By: Rodrigue Arguello Confirmed By: JOSEPH ACOSTA MD 01/16/25 0916 Date Joseph Acosta MD CC: ELIZABETH Ireland; Dr. Rodrigue Arguello, DO Signed Normal [facility] Absolute lymphocyte countOrd ered By: Rodrigue Arguello on 01-13-2025 Lymphocytes Auto (Unsp spec) [#/Vol] 2.73 10*3/uL 0.83-4.51 [facility] Absolute neutrophil countOrd ered By: Rodrigue Arguello on 01-13-2025 Neutrophils (Bld) [#/Vol] 8.8 10*3/uL High 2.0-7.7 [facility] Activated partial thrombopla stin time (aPTT) in platelet poor plasma by coagulation aOrdered By: Rodrigue Arguello on 01-13-2025 aPTT Coag (PPP) [Time] 31.9 s 24.1-36.2 [facility] Anion gap in Serum or Plasma Ordered By: Rodrigue Arguello on 01-13-2025 Anion gap [Moles/Vol] 16 mmol/L High 5-15 [facility] Automated lymphocyte count a s percentage of total leukocytesOrdered By: Rodrigue Arguello on 01-13-2025 Lymphocytes/100 WBC Auto (Unsp spec) 20.2 % 19-41 [facility] BUN/creatinine ratioOrdered By: Rodrigue Arguello on 01-13-2025 Urea nitrogen/Creatinine [Mass ratio] 20.1 mg/mg High 10-20 [facility] Basic Metabolic Profile (BMP )on 01-13-2025 BUN/CRE 20.1 RATIO High 10-20 [facility] Comment on above: Performed By: #### L 100.0100, L501.4021, BTS, L500.2500 ####[facility] [address] [place], [place], [id number] Calcium [Mass/Vol] 9.2 mg/dL Normal 7.6-11.0 [facility] Comment on above: Performed By: #### L 100.0100, L501.4021, BTS, L500.2500 ####[facility] [address] [place], [address] Chloride [Moles/Vol] 102 mmol/L Normal 98-108 [facility] Comment on above: Performed By: #### L 100.0100, L501.4021, BTS, L500.2500 ####[facility] [address] [place], [address] CO2 [Moles/Vol] 19.4 mmol/L Low 21.0-32.0 [facility] Comment on above: Performed By: #### L 100.0100, L501.4021, BTS, L500.2500 ####[facility] [address] [place], [address] Creatinine [Mass/Vol] 0.52 mg/dL Low 0.70-1.20 [facility] Comment on above: Performed By: #### L 100.0100, L501.4021, BTS, L500.2500 ####[facility] [address] [place], [address] ECRCL 113.09 ml/min Normal 50-250 [facility] Comment on above: Performed By: #### L 100.0100, L501.4021, BTS, L500.2500 ####[facility] [address] [place], [address] GAP 16 High 5-15 [facility] Comment on above: Performed By: #### L 100.0100, L501.4021, BTS, L500.2500 ####[facility] [address] [place], [address] GFR/1.73 sq M.predicted among non-blacks MDRD (S/P/Bld) [Vol rate/Area] 109 mL/min/{1.73_m2} Normal >60 [facility] Comment on above: Result Comment: mL/m in/1.73m2 CKD-EPI Creatinine Equation (2020) Performed By: #### L 100.0100, L501.4021, BTS, L500.2500 ####[facility] [address] [place], [address] Glucose [Mass/Vol] 97 mg/dL Normal 70-99 [facility] Comment on above: Performed By: #### L 100.0100, L501.4021, BTS, L500.2500 ####[facility] [address] [place], [address] Potassium [Moles/Vol] 4.0 mmol/L Normal 3.3-5.1 [facility] Comment on above: Performed By: #### L 100.0100, L501.4021, BTS, L500.2500 ####[facility] [address] [place], [address] Sodium [Moles/Vol] 137 mmol/L Normal 133-145 [facility] Comment on above: Performed By: #### L 100.0100, L501.4021, BTS, L500.2500 ####[facility] [address] [place], [address] Urea nitrogen [Mass/Vol] 10 mg/dL Normal 4-19 [facility] Comment on above: Performed By: #### L 100.0100, L501.4021, BTS, L500.2500 ####[facility] [address] [place], [address] Basophil percentageOrdered B y: Rodrigue Pay on 01-13-2025 Basophils/100 WBC (Bld) 0.7 % 0-1 [facility] Bedside Glucoseon 01-13-2025 FINGERSTICK GLU 108 mg/dL High 74-106 [facility] Comment on above: Result Comment: EMILY ALONSO OF PATIENT CARE PER NURSING PROTOCOL Performed By: #### L 500.2500, L100.0100 #### [facility] [address] [place], [address] Blood polychromasia detectio n by light microscopyOrdered By: Rodrigue Arguello on 01-13-2025 Polychromasia LM Ql (Bld) 1+ [facility] CBC W Auto Differential pane l (Bld)on 01-13-2025 Basophils (Bld) [#/Vol] 0.10 10*3/uL Normal <0.11 [facility] Comment on above: Order Comment: Speci men Type: BLOOD SPECIMENOrdering Facility: [facility] Address: [address] [place] [address] Performed By: #### 5 7021-8, 80194-3 ####[facility] LABCLIA [id number] [place] [address] [place] Basophils/100 WBC (Bld) 0.8 % Normal C [facility] Comment on above: Order Comment: Speci men Type: BLOOD SPECIMENOrdering Facility: [facility] Address: [address] [place] [address] Performed By: #### 5 7021-8, 85198-5 ####[facility] LABCLIA [id number] [place] [address] [place] Differential cell count method Nom (Bld) Auto Normal [facility] Comment on above: Order Comment: Speci men Type: BLOOD SPECIMENOrdering Facility: [facility] Address: [address] [place] [address] Performed By: #### 5 7021-8, 32654-6 ####[facility] LABCLIA [id number] [place] [id number] [place] Eosinophils (Bld) [#/Vol] 0.08 10*3/uL Normal <0.46 [facility] Comment on above: Order Comment: Speci men Type: BLOOD SPECIMENOrdering Facility: [facility] Address: [address] [place] [address] Performed By: #### 5 7021-8, 46259-6 ####[facility] LABCLIA [id number] [place] [address] [place] Eosinophils/100 WBC (Bld) 0.6 % Normal [facility] Comment on above: Order Comment: Speci men Type: BLOOD SPECIMENOrdering Facility: [facility] Address: [address] [place] [address] Performed By: #### 5 7021-8, 53263-1 ####[facility] LABCLIA [id number] [place] [address] [place] Erythrocyte distribution width (RBC) [Ratio] 13.6 % Normal 11.5-15.0 [facility] Comment on above: Order Comment: Speci men Type: BLOOD SPECIMENOrdering Facility: [facility] Address: [address] [place] [address] Performed By: #### 5 7021-8, 19275-3 ####[facility] LABIA [id number] [place] [address] [place] Hematocrit (Bld) [Volume fraction] 29.7 % Low 36.0-46.0 [facility] Comment on above: Order Comment: Speci men Type: BLOOD SPECIMENOrdering Facility: [facility] Address: [address] [place] [address] Performed By: #### 5 7021-8, 72071-0 ####[facility] LABIA [id number] [place] [address] [place] Hemoglobin (Bld) [Mass/Vol] 9.2 g/dL Low 11.5-15.5 [facility] Comment on above: Order Comment: Speci men Type: BLOOD SPECIMENOrdering Facility: [facility] Address: [address] [place] [address] Performed By: #### 5 7021-8, 44052-4 ####[facility] LABCLIA [id number] [place] [id number] [place] Immature granulocytes (Bld) [#/Vol] 0.07 10*3/uL Normal <0.10 [facility] Comment on above: Order Comment: Speci men Type: BLOOD SPECIMENOrdering Facility: [facility] Address: [address] [place] [address] Performed By: #### 5 7021-8, 08768-2 ####[facility] LABCLIA [id number] [place] [address] [place] Immature granulocytes/100 WBC (Bld) 0.5 % Normal [facility] Comment on above: Order Comment: Speci men Type: BLOOD SPECIMENOrdering Facility: [facility] Address: [address] [place] [address] Performed By: #### 5 7021-8, 72549-2 ####[facility] LABCLIA [id number] [place] [address] [place] Lymphocytes (Bld) [#/Vol] 3.77 10*3/uL Normal 1.00-4.00 [facility] Comment on above: Order Comment: Speci men Type: BLOOD SPECIMENOrdering Facility: [facility] Address: [address] [place] [address] Performed By: #### 5 7021-8, 75453-7 ####[facility] LABCLIA [id number] [place] [address] [place] Lymphocytes/100 WBC (Bld) 29.2 % Normal [facility] Comment on above: Order Comment: Speci men Type: BLOOD SPECIMENOrdering Facility: [facility] Address: [address] [place] [address] Performed By: #### 5 7021-8, 39514-0 ####[facility] LABCLIA [id number] [place] [id number] [place] MCH (RBC) [Entitic mass] 29.2 pg Normal 26.0-34.0 [facility] Comment on above: Order Comment: Speci men Type: BLOOD SPECIMENOrdering Facility: [facility] Address: [address] [place] [address] Performed By: #### 5 7021-8, 87604-6 ####[facility] LABIA [id number] [place] [address] [place] MCHC (RBC) [Mass/Vol] 31.0 g/dL Normal 30.5-36.0 [facility] Comment on above: Order Comment: Speci men Type: BLOOD SPECIMENOrdering Facility: [facility] Address: [address] [place] [address] Performed By: #### 5 7021-8, 33838-3 ####[facility] LABIA [id number] [place] [address] [place] MCV (RBC) [Entitic vol] 94.3 fL Normal 80.0-100.0 [facility] Comment on above: Order Comment: Speci men Type: BLOOD SPECIMENOrdering Facility: [facility] Address: [address] [place] [address] Performed By: #### 5 7021-8, 80353-6 ####[facility] LABIA [id number] [place] [address] [place] Monocytes (Bld) [#/Vol] 1.45 10*3/uL High <0.87 [facility] Comment on above: Order Comment: Speci men Type: BLOOD SPECIMENOrdering Facility: [facility] Address: [address] [place] [address] Performed By: #### 5 7021-8, 56326-2 ####[facility] LABIA [id number] [place] [id number] [place] Monocytes/100 WBC (Bld) 11.2 % Normal C [facility] Comment on above: Order Comment: Speci men Type: BLOOD SPECIMENOrdering Facility: [facility] Address: [address] [place] [address] Performed By: #### 5 7021-8, 20941-3 ####[facility] LABCLIA [id number] [facility] [address] [address] [place] Neutrophils (Bld) [#/Vol] 7.45 10*3/uL Normal 1.45-7.50 [facility] Comment on above: Order Comment: Speci men Type: BLOOD SPECIMENOrdering Facility: [facility] Address: [address] [place] [address] Performed By: #### 5 7021-8, 26892-6 ####[facility] LABCLIA [id number] [facility] [place] [address] [place] Neutrophils/100 WBC (Bld) 57.7 % Normal [facility] Comment on above: Order Comment: Speci men Type: BLOOD SPECIMENOrdering Facility: [facility] Address: [address] [place] [address] Performed By: #### 5 7021-8, 16559-5 ####[facility] LABCLIA [id number] [place] [address] [place] Nucleated RBC (Bld) [#/Vol] 10*3/uL Normal <0.01 [facility] Comment on above: Order Comment: Speci men Type: BLOOD SPECIMENOrdering Facility: [facility] Address: [address] [place] [address] Performed By: #### 5 7021-8, 58381-2 ####[facility] LABCLIA [id number] [facility] [place] [address] [place] Nucleated RBC/100 WBC (Bld) [Ratio] 0.0 /100 WBC Normal [facility] Comment on above: Order Comment: Speci men Type: BLOOD SPECIMENOrdering Facility: [facility] Address: [address] [place] [address] Performed By: #### 5 7021-8, 84406-0 ####[facility] LABCLIA [id number] [address] [address] [place] Platelet mean volume (Bld) [Entitic vol] 9.2 fL Normal 9.0-12.7 [facility] Comment on above: Order Comment: Speci men Type: BLOOD SPECIMENOrdering Facility: [facility] Address: [address] [place] [address] Performed By: #### 5 7021-8, 23871-6 ####[facility] LABCLIA [id number] [place] [address] [place] Platelets (Bld) [#/Vol] 555 10*3/uL High 150-400 [facility] Comment on above: Order Comment: Speci men Type: BLOOD SPECIMENOrdering Facility: [facility] Address: [address] [place] [address] Performed By: #### 5 7021-8, 28133-1 ####[facility] LABCLIA [id number] [place] [address] [place] RBC (Bld) [#/Vol] 3.15 10*6/uL Low 3.90-5.20 [facility] Comment on above: Order Comment: Speci men Type: BLOOD SPECIMENOrdering Facility: [facility] Address: [address] [place] [address] Performed By: #### 5 7021-8, 66485-3 ####[facility] LABCLIA [id number] [place] [id number] [place] WBC (Bld) [#/Vol] 12.92 10*3/uL High 3.70-11.00 [facility] Comment on above: Order Comment: Speci men Type: BLOOD SPECIMENOrdering Facility: [facility] Address: [address] [place] [address] Performed By: #### 5 7021-8, 73269-4 ####[facility] LABCLIA [id number] [id number] [address] [place] CBC W/Diff, Automatedon 03-2 PLT EST SLT INC Normal ADEQ [facility] Comment on above: Performed By: #### L 100.0100, L501.4021, BTS, L500.2500 ####[facility] [address] [place], [address] POLYCHROMASIA 1+ Normal [facility] Comment on above: Performed By: #### L 100.0100, L501.4021, BTS, L500.2500 ####[facility] [address] [place], [address] Carbon dioxide, total [Moles /volume] in Central venous bloodOrdered By: Rodrigue Arguello on 01-13-2025 CO2 [Moles/Vol] 19.4 mmol/L Low 21.0-32.0 [facility] Chest 1 View (Portable)on Chest 1 View (Portable) [facility] Imaging Services [address] [place] [address] Chest 1 View (Portable) MR#: [id number] Acct: [id number] Name: BECKY HUFFMAN Rep #: [id number] : 1970 F 54 From: Teresita Pearson MD PCP: ELIZABETH Garcia Status: REG ER Study: Chest 1 View (Portable) Date of Exam: 01/13/25 Exam# [id number] Ordering Dr: Rodrigue Arguello DO EXAM: XR Chest, 1 View CLINICAL INDICATION: CHEST PAIN TECHNIQUE: Frontal view of the chest. COMPARISON: No relevant prior studies available. FINDINGS: LUNGS AND PLEURAL SPACES: Right basilar atelectasis or pneumonia. No pneumothorax. HEART: Unremarkable. No cardiomegaly. MEDIASTINUM: Unremarkable. Normal mediastinal contour. BONES/JOINTS: Unremarkable. No acute fracture. RAD/Chest 1 View (Portable) IMPRESSION: Right basilar atelectasis or pneumonia. Reading [facility] CC: PIN CHASERTodd Ireland; Dr. Rodrigue Arguello DO Tourist Adviser: Signed Normal [facility] Chloride assayOrdered By: Aguilar Arguello on 01-13-2025 Chloride [Moles/Vol] 102 mmol/L 98-108 [facility] Emergency Department Summary on 01-13-2025 Emergency Department Summary [facility] Medical Records Department [address] [place] [address] Emergency Department Summary 01/13/25 MR#: [id number] Acct: [id number] Name: BECKY HUFFMAN Rep #: [id number] : 1970 54 From: Rodrigue Arguello DO PCP: Becky Ireland, PIN CHASER-C Status:REG ER Location: ED HPI History of Present Illness Chief Complaint: Dizziness Narrative Narrative: Patient is a 54-year-old female who is presenting to the ER with chief complaint of fatigue, weakness, concern for low iron levels. Patient was recently diagnosed with influenza A, patient has a history of rheumatoid arthritis. Patient developed septic joint from left wrist and bilateral shoulders. Patient was admitted to the hospital for approximately thyroid December 21. Patient had surgery to left wrist and bilateral shoulders, incisions were made, joints were draining, and patient was in the hospital for IV antibiotics. Patient was discharged after approximately in the hospital for 7 days. Patient has a history of low iron levels. Patient has increased her iron levels recently. Patient was brought in by a friend secondary to generalized weakness, fatigue, normal shortness of breath. Patient stated she has small amount of fluid in the right lower lung with pleural effusion, she has no fever, no cough, she has no fever, no cough, no chills. No bowel or bladder changes. No acute complaints. [facility] Medical History BRCA gene positive Breast cancer metastasized to axillary lymph node Breast cancer, right breast Rheumatoid arthritis Home Medications ???Medication ???Instructions ???Recorded ???Last Taken ???Type multivitamin 1 tab PO DAILY general health 11/1901/12/25 History anastrozole 1 mg tablet 1 mg PO DAILY arthritis 10/13/19 0 01/12/25 History ferrous sulfate 325 mg (65 mg 325 mg PO BID anemia 10/13/1912/18 History iron) tablet calcium 500 mg (as 1 ea PO BID def. 02/21/20 01/12/25 History carbonate)-vitamin D3 15 mcg (600 unit) tablet certolizumab pegol 400 mg/2 mL 200 mg subcut Q2W arthritis 01/05/25 History (200 mg/mL x2) subcutaneous syringe kit (Cimzia) hydroxychloroquine 200 mg tablet 200 mg PO QHS arthritis 07/09/21 0 01/12/25 History hydrocortisone 2.5 % topical 1 applic topical BID PRN perineal 12/15/24 Unknown History ointment area leflunomide 20 mg tablet 20 mg PO DAILY arthritis 12/15/24 01/12/25 History lisinopril 10 mg tablet 10 mg PO DAILY #60 tabs 12/21/24 0 01/13/25 Rx Lactobacillus acidophilus 1 tab PO DAILY 01/13/25 01/12/25 H istory acetaminophen 500 mg tablet 1,000 mg PO Q8H PRN pain 01/13/25 Unknown History Allergy/AdvReac Type Severity Reaction Status Date / Time No Known Allergies Allergy Verified 01/13/25 11:11 Family History Son Diabetes Grandfather Heart disease Mother Cancer possible throat cancer (Went through radiation) Father Cancer lung Surgical History S/P bilateral salpingo-oophorectomy S/P breast reconstruction S/P bilateral mastectomy Status post right breast lumpectomy ( 12/2018) History of tonsillectomy Social History household members: none housing: apartment current occupational status: employed Smoking Status: Never smoker alcohol intake: current alcohol intake frequency: holidays/special occasions only substance use type: does not use caffeine: Yes what type of physical activity do you participate in: walking and aerobics frequency: 5-6 times per week seatbelt use: always do you feel safe at home: Yes additional social history: Patient works at [employer] home ROS ROS ED ROS Narrative REVIEW OF SYSTEMS: Unless otherwise stated in this report the patient's positive and negative responses for review of systems for constitutional, eyes, ENT, cardiovascular, respiratory, gastrointestinal, neurological, , musculoskeletal, and integument systems and related systems to the presenting problem are either stated in the history of present illness or were not pertinent or were negative for the symptoms and/or complaints related to the presenting medical problem. EXAM Physical Exam Narrative Exam Narrative: Vital signs reviewed and patient is not hypoxic. General: The patient appears well and in no apparent distress. Patient is resting comfortably on cart. Not toxic, lethargic, or listless. Skin: Warm, dry, no pallor noted. There is no rash noted. Head: Normocephalic, atraumatic Eye: Minimal pale conjunctiva, no drainage, EOMI. PERRL. Ears, Nose, Mouth, and Throat: oral mucosa is moist. Nares patent. Mouth without vesicles. Cardiovascular: Regular (more content not included)... Normal [facility] Eosinophil percentageOrdered By: Rodrigue Arguello on 01-13-2025 Eosinophils/100 WBC (Bld) 0.4 % 0-5 [facility] Erythrocyte distribution wid th ratioOrdered By: Rodrigue Arguello on 01-13-2025 Erythrocyte distribution width (RBC) [Ratio] 13.6 % 11.6-14.6 [facility] Erythrocyte distribution wid th standard deviationOrdered By: Rodrigue Arguello on 01-13-2025 Erythrocyte distribution width (RBC) [Entitic vol] 45.5 fL High 35.1-43.9 [facility] Erythrocyte distribution width (RBC) [Ratio] 45.5 fl High 35.1-43.9 [facility] Estimation of creatinine rancho aranceOrdered By: Rodrigue Arguello on 01-13-2025 Estimated Creatinine Clearance Calc 113.09 ml/min 50-250 [facility] Ferritin SerPl-mCncon 2024 Ferritin [Mass/Vol] 997.0 ng/mL High 14.7-205.1 [facility] Comment on above: Order Comment: Speci men Type: BLOOD SPECIMENOrdering Facility: [facility] Address: [address] [place] [address] Performed By: #### 2 132-9, 70157-6, 2276-4, 2284-8 ####[facility] LABCLIA [id number] [place] [id number] [place] Folate SerPl-mCncon 01-14-20 25 Folate [Mass/Vol] 18.1 ng/mL Normal >4.7 [facility] Comment on above: Order Comment: Speci men Type: BLOOD SPECIMENOrdering Facility: [facility] Address: [address] [place] [address] Performed By: #### 2 132-9, 18214-0, 2276-4, 2284-8 ####[facility] LABCLIA [id number] [place] [address] [place] GFR/1.73 sq M.predicted simi g non-blacks MDRD (S/P/Bld) [Vol rate/Area]Ordered By: Rodrigue Arguello on 01-13-2025 Estimated GFR (MDRD) Non-Af Amer 109 >60 [facility] Comment on above: mL/min/1.73m2 CKD-EP I Creatinine Equation (2020) Glomerular filtration rate ( GFR) estimation/1.73 sq m using serum, plasma, or whole bOrdered By: Rodrigue Arguello on 01-13-2025 GFR/1.73 sq M.predicted among non-blacks MDRD (S/P/Bld) [Vol rate/Area] 109 mL/min/{1.73_m2} >60 [facility] Comment on above: mL/min/1.73m2 CKD-EP I Creatinine Equation (2020) [facility] deOrdered By: Rodrigue Arguello on 01-13-2025 Bedside Glucose (Misc Panel) 108 mg/dL High 74-106 [facility] Comment on above: MANAGEMENT OF PATIEN T CARE PER NURSING PROTOCOL Glucose [Mass/Vol] 108 mg/dL High 74-106 [facility] Comment on above: MANAGEMENT OF PATIEN T CARE PER NURSING PROTOCOL Hematocrit Auto (Bld) [Volum e fraction]Ordered By: Rodrigue Arguello on 01-13-2025 Hematocrit (Bld) [Volume fraction] 26.2 % Low 37-47 [facility] Hemoglobin measurementOrdere d By: Rodrigue Arguello on 01-13-2025 Hemoglobin (Bld) [Mass/Vol] 8.5 g/dL Low 12.0-15.0 [facility] Immature granulocytes/100 WB C Auto (Bld)Ordered By: Rodrigue Arguello on 01-13-2025 Immature granulocytes/100 WBC (Bld) 0.500 % 0.0-0.9 [facility] Comment on above: IG% - Immature Granu locytes (promyelocytes, myelocytes and metamyelocytes) > 1% indicates that a LEFT SHIFT is Present. International normalized rat io (INR) calculationOrdered By: Rodrigue Arguello on 01-13-2025 INR Coag (Bld) [Relative time] 1.2 {INR} [facility] Iron and Iron binding capaci ty panelon 01-13-2025 Iron [Mass/Vol] 16 ug/dL Low 41-186 [facility] Comment on above: Order Comment: Speci men Type: BLOOD SPECIMENOrdering Facility: [facility] Address: [address] [place] [address] Performed By: #### 2 132-9, 49966-0, 2276-01, 8 ####[facility] LABIA [id number] [place] [address] [place] Iron binding capacity [Mass/Vol] 137 ug/dL Low 232-386 [facility] Comment on above: Order Comment: Speci men Type: BLOOD SPECIMENOrdering Facility: [facility] Address: [address] [place] [address] Performed By: #### 2 132-9, 11850-0, 2276-01, 8 ####[facility] LABCLIA [id number] [place] [id number] [place] Iron/TIBC [Molar ratio] 11.7 % Low 15.0-57.0 [facility] Comment on above: Order Comment: Speci men Type: BLOOD SPECIMENOrdering Facility: [facility] Address: [address] [place] [address] Performed By: #### 2 132-9, 38715-2, 2275-4, 8 ####[facility] LABCLIA [id number] [address] [address] [place] L501.4021on 01-13-2025 Trop T High Sen 8 ng/L Normal <=14 [facility] Comment on above: Performed By: #### L 100.0100, L501.4021, BTS, L500.2500 ####[facility] [id number] [place], [address] Lymphocytes Auto (Unsp spec) [#/Vol]Ordered By: Rodrigue Arguello on 01-13-2025 Lymphocytes (Bld) [#/Vol] 2.73 10*3/uL 0.83-4.51 [facility] Lymphocytes/100 WBC Auto (Un sp spec)Ordered By: Rodrigue Arguello on 01-13-2025 Lymphocytes/100 WBC (Bld) 20.2 % 19-41 [facility] MCV (mean corpuscular volume ) determinationOrdered By: Rodrigue Arguello on 01-13-2025 MCV (RBC) [Entitic vol] 91.9 fL 81-99 [facility] Mean corpuscular hemoglobin (MCH) determinationOrdered By: Rodrigue Arguello on 01-13-2025 MCH (RBC) [Entitic mass] 29.8 pg 27.0-32.0 [facility] Mean corpuscular hemoglobin concentration (MCHC) determinationOrdered By: Rodrigue Arguello on 01-13-2025 MCHC (RBC) [Mass/Vol] 32.4 g/dL 32-36 [facility] Mean platelet volume determi nationOrdered By: Rodrigue Arguello on 01-13-2025 Platelet mean volume (Bld) [Entitic vol] 9.1 fL 6.2-12.0 [facility] Monocyte percentageOrdered B y: Rodrigue Arguello on 01-13-2025 Monocytes/100 WBC (Bld) 13.2 % High 0-10 [facility] Neutrophil percentageOrdered By: Rodrigue Arguello on 01-13-2025 Neutrophils/100 WBC (Bld) 65.0 % 47-70 [facility] No Panel InformationOrdered By: Rodrigue Arguello on 01-13-2025 Troponin T High Sensitivity 8 ng/L <14 [facility] Nucleated red blood cell per centageOrdered By: Rodrigue Arguello on 01-13-2025 Nucleated RBC/100 WBC (Bld) [Ratio] 0 % 0-5 [facility] Partial Thromboplast Timeon 01-13-2025 aPTT Coag (Bld) [Time] 31.9 s Normal 24.1-36.2 [facility] Comment on above: Performed By: #### L 500.2500, L100.0100 #### [facility] [address] [facility] [place], [address] Platelet countOrdered By: Aguilar Arguello on 01-13-2025 Platelets (Bld) [#/Vol] 466 10*3/uL High 150-450 [facility] Platelet estimateOrdered By: Rodrigue Arguello on 01-13-2025 Platelets LM Ql (Bld) SLT INC [facility] Platelets LM Ql (Bld)Ordered By: Rodrigue Arguello on 01-13-2025 Platelet Estimate SLT INC [facility] Polychromasia LM Ql (Bld)Ord ered By: Rodrigue Arguello on 01-13-2025 Polychromasia 1+ [facility] Potassium (Unsp spec) [Mass/ Vol]Ordered By: Rodrigue Arguello on 01-13-2025 Potassium [Moles/Vol] 4.0 mmol/L 3.3-5.1 [facility] Potassium measurement (mass/ volume)Ordered By: Rodrigue Arguello on 01-13-2025 Potassium (Unsp spec) [Mass/Vol] 4.0 mmol/L 3.3-5.1 [facility] Prothrombin Time w/INRon INR Coag (PPP) [Relative time] 1.2 {INR} Normal [facility] Comment on above: Performed By: #### L 500.2500, L100.0100 #### [facility] [address] [place], [address] PT Coag (PPP) [Time] 15.2 s High 11.7-14.9 [facility] Comment on above: Performed By: #### L 500.2500, L100.0100 #### [facility] [address] [place], [address] Prothrombin timeOrdered By: Rodrigue Arguello on 01-13-2025 PT Coag (PPP) [Time] 15.2 s High 11.7-14.9 [facility] RBC Auto (Bld) [#/Vol]Ordere d By: Rodrigue Arguello on 01-13-2025 RBC (Bld) [#/Vol] 2.85 10*6/uL Low 4.2-5.4 [facility] #on 01-13-2025 Reticulocytes (Bld) [#/Vol] 0.97577 10*3/uL Normal 0.018-0.100 [facility] Comment on above: Order Comment: Speci men Type: BLOOD SPECIMENOrdering Facility: [facility] Address: [address] [place] [address] Performed By: #### 5 7021-8, 99014-4 ####[facility] LABIA [id number] [place] [id number] [place] Reticulocytes (Bld) [#/Vol]o n 01-13-2025 Reticulocytes/100 RBC (Bld) 2.6 % High 0.4-2.0 [facility] Comment on above: Order Comment: Speci men Type: BLOOD SPECIMENOrdering Facility: [facility] Address: [address] [place], [place] [address]Deuce [place] [address] Performed By: #### 5 7021-8, 95386-2 ####[facility] [id number] [place] [id number] [place] Serum creatinine measurement (mass/volume)Ordered By: Rodrigue Arguello on 01-13-2025 Creatinine [Mass/Vol] 0.52 mg/dL Low 0.70-1.20 [facility] Serum glucose measurement (m ass/volume)Ordered By: Rodrigue Arguello on 01-13-2025 Glucose [Mass/Vol] 97 mg/dL 70-99 [facility] Serum or plasma calcium dali urement (mass/volume)Ordered By: Rodrigue Arguello on 01-13-2025 Calcium [Mass/Vol] 9.2 mg/dL 7.6-11.0 [facility] Serum or plasma urea nitroge n measurement (mass/volume)Ordered By: Rodrigue Arguello on 01-13-2025 Urea nitrogen [Mass/Vol] 10 mg/dL 4-19 [facility] Sodium levelOrdered By: Michele Arguello on 01-13-2025 Sodium [Moles/Vol] 137 mmol/L 133-145 [facility] Type AND Screenon 01-13-2025 ABO and Rh group Nom (Bld) Blood group A Rh(D) positive Normal [facility] Comment on above: Order Comment: A Performed By: #### L 100.0100, L501.4021, BTS, L500.2500 ####[facility] [id number] [place], [place], [address] Vit B12 SerPl-mCncon 025 Cobalamin (Vitamin B12) [Mass/Vol] 871 pg/mL Normal 232-1245 [facility] Comment on above: Order Comment: Speci men Type: BLOOD SPECIMENOrdering Facility: [facility] Address: [address] [place] [address] Performed By: #### 2 132-9, 75768-6, 2276-4, 2284-8 ####[facility] LABCLIA [id number] [place] [address] [place] White blood cell (WBC) count Ordered By: Rodrigue Arguello on 01-13-2025 WBC (Bld) [#/Vol] 13.5 10*3/uL High 4.4-11.0 [facility] aPTT Coag (PPP) [Time]Ordere d By: Rodrigue Arguello on 01-13-2025 aPTT Coag (Bld) [Time] 31.9 s 24.1-36.2 [facility] CNPNon 01-12-2025 [facility] YESENIABECKY ([id number]) 1970 F Date Time Provider Department 01/12/25 BECKY IRELAND During your visit today, we recorded the following information about you: Caio Hartley RN 01/12/2025 10:23 AM Signed Heena- - [facility]- reports she saw pt today. Reports pt saw pcp yesterday for hypotension, low energy, and tachycardia and amlodipine was discontinued. Pt still taking lisinopril. Labs show pt is anemic and iron was increased to twice daily. Pt is scheduled to see Pulm for pleural effusion right base. Heena reports pt looks and feels better today but still having decreased energy. BP today, for the first time did not drop. Beginning of visit 122/85 and end of visit 110/76. HR remains 122-127 at rest and after visit was 120. Unsure if a provider needs to look at this today since pt saw pcp yesterday. Sending to Kasandra for review since hSu and Ela are out of office today. Onelia John APRN.ATMOSPHERIC CHEMIST 01/12/2025 12:14 PM Signed Tachycardia is likely coming from the anemia. Nothing I can do. Please have patient go back to the ER, may want to Blood transfusion. Merrill Argueta MA 01/12/2025 1:46 PM Signed Called and spoke with patient who says she feels great. She's been taking her iron supplement as prescribed and eating more iron in her diet. States if she starts to feel off or tachycardia gets worse she will go to the ER. Merrill Argueta MA Allergies As of Date: 01/12/2025 (No Known Allergies) Date Reviewed: 12/27/2024 Reviewed by: Castro Hall LPN - Fully Assessed Reason for Visit: Patient Update [1234] Prescriptions as of 01/12/2025 - lisinopril (ZESTRIL) 10 mg tablet Take 1 tablet by mouth once daily. - anastrozole (ARIMIDEX) 1 mg tablet Take 1 tablet by mouth once daily. - hydrOXYchloroQUINE (PLAQUENIL) 200 mg tablet Take 200 mg by mouth once daily. - cholecalciferol, vitamin D3, (VITAMIN D3 ORAL) Take 2,000 Units by mouth once daily. - certolizumab pegol (CIMZIA SUBCUTANEOUS) Inject 200 mg subcutaneously. Twice a month - calcium carbonate/vitamin D3 (CALCIUM 600 + D ORAL) Take 1 tablet by mouth once daily. - leflunomide (ARAVA) 20 mg tablet Take 20 mg by mouth once daily. - ferrous sulfate 325 mg (65 mg iron) tablet Take 325 mg by mouth once daily. - DAILY MULTIVITAMIN TAB Take 1 tablet by mouth once daily. 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 *12/23/2018 Rheumatoid arthritis involving multiple sites (*05/20/2021 Encounter Status:Closed by MERRILL ARGUETA on 01/12/25 Normal [facility] CBC W Auto Differential pane l (Bld)on 01-10-2025 Basophils (Bld) [#/Vol] 0.00 10*3/uL Normal <0.11 [facility] Comment on above: Order Comment: Speci men Type: BLOOD SPECIMENOrdering Facility: [facility] Address: [address] [place] [address] Performed By: #### 5 7021-8 ####[facility] LABCLIA [id number] [place] [address] [place] Basophils/100 WBC (Bld) 0.0 % Normal [facility] Comment on above: Order Comment: Speci men Type: BLOOD SPECIMENOrdering Facility: [facility] Address: [address] [place] [address] Performed By: #### 5 7021-8 ####[facility] LABCLIA [id number] [place] [address] [place] Differential cell count method Nom (Bld) Manual Normal [facility] Comment on above: Order Comment: Speci men Type: BLOOD SPECIMENOrdering Facility: [facility] Address: [address] [place] [address] Performed By: #### 5 7021-8 ####[facility] LABCLIA [id number] [place] [address] [place] Eosinophils (Bld) [#/Vol] 0.00 10*3/uL Normal <0.46 [facility] Comment on above: Order Comment: Speci men Type: BLOOD SPECIMENOrdering Facility: [facility] Address: [address] [place] [address] Performed By: #### 5 7021-8 ####[facility] LABCLIA [id number] [place] [address] [place] Eosinophils/100 WBC (Bld) 0.0 % Normal [facility] Comment on above: Order Comment: Speci men Type: BLOOD SPECIMENOrdering Facility: [facility] Address: [address] [place] [address] Performed By: #### 5 7021-8 ####[facility] LABCLIA [id number] [place] [address] [place] Erythrocyte distribution width (RBC) [Ratio] 13.6 % Normal 11.5-15.0 [facility] Comment on above: Order Comment: Speci men Type: BLOOD SPECIMENOrdering Facility: [facility] Address: [address] [place] [address] Performed By: #### 5 7021-8 ####[facility] LABCLIA [id number] [address] [place] Hematocrit (Bld) [Volume fraction] 28.3 % Low 36.0-46.0 [facility] Comment on above: Order Comment: Speci men Type: BLOOD SPECIMENOrdering Facility: [facility] Address: [address] [place] [address] Performed By: #### 5 7021-8 ####[facility] LABCLIA [id number] [place] [address] [place] Hemoglobin (Bld) [Mass/Vol] 8.7 g/dL Low 11.5-15.5 [facility] Comment on above: Order Comment: Speci men Type: BLOOD SPECIMENOrdering Facility: [facility] Address: [address] [place] [address] Performed By: #### 5 7021-8 ####[facility] LABCLIA [id number] [place] [address] [place] Lymphocytes (Bld) [#/Vol] 5.44 10*3/uL High 1.00-4.00 [facility] Comment on above: Order Comment: Speci men Type: BLOOD SPECIMENOrdering Facility: [facility] Address: [address] [place] [address] Performed By: #### 5 7021-8 ####[facility] LABCLIA [id number] [place] [address] [place] Lymphocytes/100 WBC (Bld) 36.5 % Normal [facility] Comment on above: Order Comment: Speci men Type: BLOOD SPECIMENOrdering Facility: [facility] Address: [address] [place] [address] Performed By: #### 5 7021-8 ####[facility] LABCLIA [id number] [place] [address] [place] MCH (RBC) [Entitic mass] 29.3 pg Normal 26.0-34.0 [facility] Comment on above: Order Comment: Speci men Type: BLOOD SPECIMENOrdering Facility: [facility] Address: [address] [place] [address] Performed By: #### 5 7021-8 ####[facility] LABCLIA [id number] [place] [id number] [place] MCHC (RBC) [Mass/Vol] 30.7 g/dL Normal 30.5-36.0 [facility] Comment on above: Order Comment: Speci men Type: BLOOD SPECIMENOrdering Facility: [facility] Address: [address] [place] [address] Performed By: #### 5 7021-8 ####[facility] LABCLIA [id number] [place] [address] [place] MCV (RBC) [Entitic vol] 95.3 fL Normal 80.0-100.0 [facility] Comment on above: Order Comment: Speci men Type: BLOOD SPECIMENOrdering Facility: [facility] Address: [address] [place] [address] Performed By: #### 5 7021-8 ####[facility] LABCLIA [id number] [place] [address] [place] Monocytes (Bld) [#/Vol] 1.55 10*3/uL High <0.87 [facility] Comment on above: Order Comment: Speci men Type: BLOOD SPECIMENOrdering Facility: [facility] Address: [address] [place] [address] Performed By: #### 5 7021-8 ####[facility] LABIA [id number] [place] [address] [place] Monocytes/100 WBC (Bld) 10.4 % Normal C [facility] Comment on above: Order Comment: Speci men Type: BLOOD SPECIMENOrdering Facility: [facility] Address: [address] [place] [address] Performed By: #### 5 7021-8 ####[facility] LABCLIA [id number] [place] [address] [place] Neutrophils (Bld) [#/Vol] 7.91 10*3/uL High 1.45-7.50 [facility] Comment on above: Order Comment: Speci men Type: BLOOD SPECIMENOrdering Facility: [facility] Address: [address] [place] [address] Performed By: #### 5 7021-8 ####[facility] LABCLIA [id number] [address], [place] [address] [place] Neutrophils/100 WBC (Bld) 53.1 % Normal [facility] Comment on above: Order Comment: Speci men Type: BLOOD SPECIMENOrdering Facility: [facility] Address: [address] [place] [address] Performed By: #### 5 7021-8 ####[facility] LABCLIA [id number] [address], [place] [address] [place] Nucleated RBC (Bld) [#/Vol] 10*3/uL Normal <0.01 [facility] Comment on above: Order Comment: Speci men Type: BLOOD SPECIMENOrdering Facility: [facility] Address: [address] [place] [address] Performed By: #### 5 7021-8 ####[facility] LABCLIA [id number] [place] [address] [place] Nucleated RBC/100 WBC (Bld) [Ratio] 0.0 /100 WBC Normal [facility] Comment on above: Order Comment: Speci men Type: BLOOD SPECIMENOrdering Facility: [facility] Address: [address] [place] [address] Performed By: #### 5 7021-8 ####[facility] LABCLIA [id number] [place] [address] [place] Ovalocytes LM Ql (Bld) Few Normal Cl [facility] Comment on above: Order Comment: Speci men Type: BLOOD SPECIMENOrdering Facility: [facility] Address: [address] [place] [address] Performed By: #### 5 7021-8 ####[facility] LABCLIA [id number] [address], [facility] [place] Platelet mean volume (Bld) [Entitic vol] 9.2 fL Normal 9.0-12.7 [facility] Comment on above: Order Comment: Speci men Type: BLOOD SPECIMENOrdering Facility: [facility] Address: [address] [place] [address] Performed By: #### 5 7021-8 ####[facility] LABCLIA [id number] [address] [place] [address] [place] Platelets (Bld) [#/Vol] 553 10*3/uL High 150-400 [facility] Comment on above: Order Comment: Speci men Type: BLOOD SPECIMENOrdering Facility: [facility] Address: [address] [place] [address] Performed By: #### 5 7021-8 ####[facility] LABCLIA [id number] [address] [place] [address] [place] Platelets Estimate (Bld) [#/Vol] Increased Normal [facility] Comment on above: Order Comment: Speci men Type: BLOOD SPECIMENOrdering Facility: [facility] Address: [address] [place] [address] Performed By: #### 5 7021-8 ####[facility] LABCLIA [id number] [address] [place] [address] [place] Polychromasia LM Ql (Bld) Slight Normal [facility] Comment on above: Order Comment: Speci men Type: BLOOD SPECIMENOrdering Facility: [facility] Address: [address] [place] [address] Performed By: #### 5 7021-8 ####[facility] LABCLIA [id number] [address] [place] [address] [place] RBC (Bld) [#/Vol] 2.97 10*6/uL Low 3.90-5.20 [facility] Comment on above: Order Comment: Speci men Type: BLOOD SPECIMENOrdering Facility: [facility] Address: [address] [place] [address] Performed By: #### 5 7021-8 ####[facility] LABIA [id number] [place] [address] [place] RED CELL MORPH Reviewed: see result s of individual morphologies Normal [facility] Comment on above: Order Comment: Speci men Type: BLOOD SPECIMENOrdering Facility: [facility] Address: [address] [place] [address] Performed By: #### 5 7021-8 ####[facility] LABIA [id number] [place] [address] [place] WBC (Bld) [#/Vol] 14.90 10*3/uL High 3.70-11.00 [facility] Comment on above: Order Comment: Speci men Type: BLOOD SPECIMENOrdering Facility: [facility] Address: [address] [place] [address] Performed By: #### 5 7021-8 ####[facility] LABIA [id number] [address] [place] CNOVon 01-10-2025 CNOV Office Visit (FAMPWS ) BECKY HUFFMAN ([id number]) 1970 F Date Time Provider Department 01/10/25 3:20 PM BECKY IRELAND FAMPWS During your visit today, we recorded the following information about you: Pulse Respiration Blood pressure 125/minute 16/minute 90/66 Becky Ireland APRN.ATMOSPHERIC CHEMIST 01/10/2025 6:19 PM Signed This is a 54 year old female who presents today with: Becky is a 54-year-old female with a history of RA, presenting for follow-up of HTN and fatigue. HISTORY OF PRESENT ILLNESS: Hypertension: - Recent hospitalization for infection; was started on amlodipine and lisinopril during hospitalization. She has been getting some lower and orthostatic blood pressures at home. - BP was stable during recent follow-up with Katie at Dr. Vu's office. - Denies urinary symptoms. Fatigue: - Reports persistent low energy levels. - Experiencing decreased appetite; consuming protein shakes when lacking appetite. - Drinking 3-4 glasses of water daily; unsure of exact volume. - Denies SOB. - Occasional dry cough, described as a tickle, occurring when sitting down after standing. RA: - Resumed hydroxychloroquine last night. - Taking anastrozole and a probiotic (acidophilus) at lunchtime. - Reports improvement in shoulder pain, though arms feel heavy. - Scheduled to see infectious disease specialist tomorrow. Physical Therapy: - Last OT session scheduled for ; home healthcare ending this week. - Evaluation for Becky at [facility] scheduled for Thursday. - Reports gradual improvement in shoulder function; able to take showers with assistance. - Family members note increased activity levels. - Expresses frustration with current limitations and desire to return to work. Pleural effusion Noted on recent er visit imaging. No SOB. Occ dry cough. Continues w/ tachycardia. PAST MEDICAL HISTORY: PAST MEDICAL HISTORY Diagnosis Date Breast cancer (HCC) 2019 PMH - PAST MEDICAL HISTORY OF FATIGUE PMH - PAST MEDICAL HISTORY OF achy joints Premenstrual tension syndromes PMS Rheumatoid arthritis involving multiple sites ([facility]) 05/20/2021 Rheumatoid arthritis(714.0) PAST SURGICAL HISTORY Procedure Laterality Date COLONOSCOPY, COLORECTAL SCREEN 10/17/2019 Dr. Travis Elias, [facility]; 4mm sessile polyp in proximal sigmoid colon, many diverticula in sigmoid colon, repeat in 5yr's MASTECTOMY HX Bilateral 2019 with tissue flap reconstruction PAST SURGICAL HISTORY OF Right 12/28/2018 lumpectomy PROVIDE CHEMOTHERAPY AGENT 2019 RADIATION THERAPY 2019 REMOVAL OF OVARY(S) Bilateral 02/2020 SALPINGECTOMY Bilateral 02/2020 TONSILLECTOMY PRIMARY/SECONDARY Tonsillectomy ALLERGIES Patient has no known allergies. MEDICATIONS Current Outpatient Medications Medication Sig lisinopril (ZESTRIL) 10 mg tablet Take 1 tablet by mouth once daily. anastrozole (ARIMIDEX) 1 mg tablet Take 1 tablet by mouth once daily. hydrOXYchloroQUINE (PLAQUENIL) 200 mg tablet Take 200 mg by mouth once daily. cholecalciferol, vitamin D3, (VITAMIN D3 ORAL) Take 2,000 Units by mouth once daily. certolizumab pegol (CIMZIA SUBCUTANEOUS) Inject 200 mg subcutaneously. Twice a month calcium carbonate/vitamin D3 (CALCIUM 600 + D ORAL) Take 1 tablet by mouth once daily. leflunomide (ARAVA) 20 mg tablet Take 20 mg by mouth once daily. ferrous sulfate 325 mg (65 mg iron) tablet Take 325 mg by mouth once daily. DAILY MULTIVITAMIN TAB Take 1 tablet by mouth once daily. No current facility-administered medications for this visit. FAMILY HISTORY Problem Relation Age of Onset Cancer Mother throat - radiation Cancer Father LUNG Hypertension Brother Diabetes Brother type 2 Hypertension Brother other (CHF) Maternal Grandfather Hypertension Paternal Grandfather Heart Paternal Grandfather No Known Problems Daughter Diabetes Son Type 1 Cancer Other Cancer Other Social History Tobacco Use Smoking status: Never Smokeless tobacco: Never Vaping Use Vaping status: Never Used Substance Use Topics Alcohol use: No Drug use: No REVIEW OF SYSTEMS Constitutional: (+) fatigue Respiratory: (+) cough, (-) shortness of breath Gastrointestinal: (+) decreased appetite Genitourinary: (-) dysuria, (-) hematuria Musculoskeletal: (+) bilateral shoulder pain, (+) heavy arms EXAM: BP 90/66 (BP Position: Standing) Pulse (!) 125 Resp 16 LMP 12/04/2016 SpO2 95% PHYSICAL EXAM: General Appearance: Well appearing, alert, in no acute distress, well-hydrated, well nourished.. Skin: Skin color, texture, turgor normal, no suspicious rashes or lesions. Head: Normocephalic, no masses, lesions, tenderness or abnormalities. Eyes: Anicteric sclera. Pupils are equally round and reactive to light. Extraocular movements are intact. . Ears: External ears normal, canals clear. Oropharynx: (more content not included)... Normal [facility] Comprehensive metabolic 2000 panelon 01-10-2025 Albumin [Mass/Vol] 3.4 g/dL Low 3.9-4.9 [facility] Comment on above: Order Comment: Speci men Type: BLOOD SPECIMENOrdering Facility: [facility] Address: [address] [place] [address] Performed By: #### 2 4323-8, 2606-3, 7, ####[facility] LABCLIA [id number] [address] [address] [place] ALP [Catalytic activity/Vol] 75 U/L Normal 34-123 [facility] Comment on above: Order Comment: Speci men Type: BLOOD SPECIMENOrdering Facility: [facility] Address: [address] [place], [place] [address] Performed By: #### 2 4323-8, 6-3, 7, ####[facility] LABCLIA [id number] [address] [address] [place] ALT [Catalytic activity/Vol] 10 U/L Normal 7-38 [facility] Comment on above: Order Comment: Speci men Type: BLOOD SPECIMENOrdering Facility: [facility] Address: [address] [place] [address] Performed By: #### 2 4323-8, 6-3, 3024-04, ####[facility] LABCLIA [id number] [address] [address] [place] Anion gap [Moles/Vol] 15 mmol/L Normal 8-15 [facility] Comment on above: Order Comment: Speci men Type: BLOOD SPECIMENOrdering Facility: [facility] Address: [address] [place] [address] Performed By: #### 2 4323-8, 6-3, 3024-04, ####[facility] LABCLIA [id number] [address] [address] [place] AST [Catalytic activity/Vol] 27 U/L Normal 13-35 [facility] Comment on above: Order Comment: Speci men Type: BLOOD SPECIMENOrdering Facility: [facility] Address: [address] [place] [address] Performed By: #### 2 4323-8, 6-3, 7, ####[facility] LABCLIA [id number] [address] [address] [place] Bilirubin [Mass/Vol] 0.3 mg/dL Normal 0.2-1.3 [facility] Comment on above: Order Comment: Speci men Type: BLOOD SPECIMENOrdering Facility: [facility] Address: [address] [place] [address] Performed By: #### 2 4323-8, 3016-3, 7, ####[facility] LABCLIA [id number] [address] [address] [place] Calcium [Mass/Vol] 9.3 mg/dL Normal 8.5-10.2 [facility] Comment on above: Order Comment: Speci men Type: BLOOD SPECIMENOrdering Facility: [facility] Address: [address] [place] [address] Performed By: #### 2 4323-8, 3016-3, 7, ####[facility] [id number] [address] [address] [place] Chloride [Moles/Vol] 103 mmol/L Normal 98-107 [facility] Comment on above: Order Comment: Speci men Type: BLOOD SPECIMENOrdering Facility: [facility] Address: [address] [place] [address] Performed By: #### 2 4323-8, 3016-3, 7, ####[facility] LABIA [id number] [address] [address] [place] CO2 [Moles/Vol] 23 mmol/L Normal 22-30 [facility] Comment on above: Order Comment: Speci men Type: BLOOD SPECIMENOrdering Facility: [facility] Address: [address] [place] [address] Performed By: #### 2 4323-8, 3016-3, 7, ####[facility] LABIA [id number] [address] [address] [place] Creatinine [Mass/Vol] 0.57 mg/dL Low 0.58-0.96 [facility] Comment on above: Order Comment: Agatha horner Type: BLOOD SPECIMENOrdering Facility: [facility] Address: [address] [place] [address] Performed By: #### 2 4323-8, 3016-3, 3023-7, ####[facility] LABIA [id number] [address] [address] [place] Creatinine and Glomerular filtration rate.predicted panel (S/P/Bld) 107 mL/min/1.73m??? Normal >=60 [facility] Comment on above: Order Comment: Agatha horner Type: BLOOD SPECIMENOrdering Facility: [facility] Address: [address] [place] [address] Result Comment: Mita mated Glomerular Filtration Rate (eGFR) is calculated using the 2020 CKD-EPI creatinine equation. This equation utilizes serum creatinine, sex, and age as parameters. The creatinine assay has traceable calibration to isotope dilution-mass spectrometry. Refer to KDIGO guidelines for clinical interpretation. In patients with unstable renal function, e.g. those with acute kidney injury, the eGFR may not accurately reflect actual GFR. Performed By: #### 2 4323-8, 3016-3, 3023-7, ####[facility] LABIA [id number] [address] [address] [place] Glucose [Mass/Vol] 85 mg/dL Normal 74-99 [facility] Comment on above: Order Comment: Agatha horner Type: BLOOD SPECIMENOrdering Facility: [facility] Address: [address] [place] [id number] Result Comment: The [place] Diabetes Association (ADA) provides guidance for cutoff values for fasting glucose and random glucose. The ADA defines fasting as no caloric intake for at least 8 hours. Fasting plasma glucose results between 100 to 125 mg/dL indicate increased risk for diabetes (prediabetes). Fasting plasma glucose results greater than or equal to 126 mg/dL meet the criteria for diagnosis of diabetes. In the absence of unequivocal hyperglycemia, results should be confirmed by repeat testing. In a patient with classic symptoms of hyperglycemia or hyperglycemic crisis, random plasma glucose results greater than or equal to 200 mg/dL meet the criteria for diagnosis of diabetes. Reference: Standards of Medical Care in Diabetes 2016, [place] [employer] Association. Diabetes Care. 2016.39(Suppl 1). Performed By: #### 2 4323-8, 3016-3, 7, ####[facility] LABIA [id number] [address] [address] [place] Potassium [Moles/Vol] 3.7 mmol/L Normal 3.7-5.1 [facility] Comment on above: Order Comment: Speci men Type: BLOOD SPECIMENOrdering Facility: [facility] Address: [address] [place] [address] Performed By: #### 2 4323-8, 3016-3, 3024-04, ####[facility] [id number] [place] [id number] [place] Protein [Mass/Vol] 7.4 g/dL Normal 6.3-8.0 [facility] Comment on above: Order Comment: Agatha [facility] Type: BLOOD SPECIMENOrdering Facility: [facility] Address: [address] [place], [place] [address] Performed By: #### 2 4323-8, 3016-3, 3024-04, ####[facility] [id number] [address] [address] [place] Sodium [Moles/Vol] 141 mmol/L Normal 136-144 [facility] Comment on above: Order Comment: Speci men Type: BLOOD SPECIMENOrdering Facility: [facility] Address: [address] [place], [place] [id number] Performed By: #### 2 4323-8, 3016-3, 7, ####[facility] LABCLIA [id number] [address] [address] [place] Urea nitrogen [Mass/Vol] 15 mg/dL Normal 7-21 [facility] Comment on above: Order Comment: Speci men Type: BLOOD SPECIMENOrdering Facility: [facility] Address: [address] [place] [address] Performed By: #### 2 4323-8, 3016-3, 7, ####[facility] LABCLIA [id number] [place] [id number] [place] Magnesium SerPl-mCncon 01-10 Magnesium [Mass/Vol] 1.8 mg/dL Normal 1.7-2.3 [facility] Comment on above: Order Comment: Speci men Type: BLOOD SPECIMENOrdering Facility: [facility] Address: [address] [place] [address] Performed By: #### 2 4323-8, 3016-3, 7, ####[facility] LABIA [id number] [place] [id number] [place] T4 Free SerPl-mCncon 025 Free T4 [Mass/Vol] 1.4 ng/dL Normal 0.9-1.7 [facility] Comment on above: Order Comment: Speci men Type: BLOOD SPECIMENOrdering Facility: [facility] Address: [address] [place] [address] Performed By: #### 2 4323-8, 3016-3, 3027, ####[facility] LABIA [id number] [place] [address] [place] TSH SerPl-aCncon 01-10-2025 TSH Qn 2.230 m[IU]/L Normal 0.270-4.200 [facility] Comment on above: Order Comment: Speci men Type: BLOOD SPECIMENOrdering Facility: [facility] Address: [address] [place] [address] Performed By: #### 2 4323-8, 3016-3, 3024-7, 233[address]-3 ####[facility] LABCLIA [id number] [place] [address] [place] XR CHEST 2V FRONTAL/LATon XR CHEST 2V FRONTAL/LAT * * *Final Repor t* * * DATE OF EXAM: Jan 10 2025 4:36PM WOX [id number] - XR CHEST 2V FRONTAL/LAT / PROCEDURE REASON: Pleural effusion on right * * * * Physician Interpretation * * * * EXAMINATION: CHEST RADIOGRAPH (2 VIEW FRONTAL and LATERAL) CLINICAL HISTORY: Pleural effusion on right MQ: XC2_6 EXAM DATE/TIME: 01/10/2025 4:36 PM COMPARISON: 12/15/2024 RESULT: Lines, tubes, and devices: None. Lungs and pleura: Small/moderate loculated effusion at the right lung base. Lung conway are otherwise clear. No pneumothorax. Cardiomediastinal silhouette: Normal cardiomediastinal silhouette. Bones and soft tissues: Unremarkable. IMPRESSION: Small/moderate loculated effusion at the right lung base. Tourist Adviser: JAEL Transcribe Date/Time: Jan 10 2025 4:48P Dictated by : YESSI GOMEZ MD This examination was interpreted and the report reviewed and electronically signed by: YESSI GOMEZ MD on Jan 10 2025 4:50PM EST [id number] Normal [facility] XR Chest PA and Lateralon IMPRESSION: Small/moderate loculated effusion at the right lung base. Tourist Adviser: PSCB Transcribe Date/Time: Jan 10 2025 4:48P Dictated by : YESSI GOMEZ MD This examination was interpreted and the report reviewed and electronically signed by: YESSI GOMEZ MD on Jan 10 2025 4:50PM EST DIVISION OF RADIOLOGY * * *Final Report* * * DATE OF EXAM: Jan 10 2025 4:36PM WOX [id number] - XR CHEST 2V FRONTAL/LAT / PROCEDURE REASON: Pleural effusion on right * * * * Physician Interpretation * * * * EXAMINATION: CHEST RADIOGRAPH (2 VIEW FRONTAL & LATERAL) CLINICAL HISTORY: Pleural effusion on right MQ: XC2_6 EXAM DATE/TIME: 01/10/2025 4:36 PM COMPARISON: 12/15/2024 RESULT: Lines, tubes, and devices: None. Lungs and pleura: Small/moderate loculated effusion at the right lung base. Lung conway are otherwise clear. No pneumothorax. Cardiomediastinal silhouette: Normal cardiomediastinal silhouette. Bones and soft tissues: Unremarkable. DIVISION OF RADIOLOGY Provider, [facility] - 01/10/2025 * * *Final Report* * * DATE OF EXAM: Jan 10 2025 4:36PM WOX 5291 - XR CHEST 2V FRONTAL/LAT / PROCEDURE REASON: Pleural effusion on right * * * * Physician Interpretation * * * * EXAMINATION: CHEST RADIOGRAPH (2 VIEW FRONTAL & LATERAL) CLINICAL HISTORY: Pleural effusion on right MQ: XC2_6 EXAM DATE/TIME: 01/10/2025 4:36 PM COMPARISON: 12/15/2024 RESULT: Lines, tubes, and devices: None. Lungs and pleura: Small/moderate loculated effusion at the right lung base. Lung conway are otherwise clear. No pneumothorax. Cardiomediastinal silhouette: Normal cardiomediastinal silhouette. Bones and soft tissues: Unremarkable. IMPRESSION IMPRESSION: Small/moderate loculated effusion at the right lung base. Tourist Adviser: PSCB Transcribe Date/Time: Jan 10 2025 4:48P Dictated by : YESSI GOMEZ MD This examination was interpreted and the report reviewed and electronically signed by: YESSI GOMEZ MD on Jan 10 2025 4:50PM EST [facility] Radiology Study observation (narrative) Patel borjas [facility] XR Chest PA and LateralOrder ed By: Cc Provider on 01-10-2025 [facility] Lizette 01-09-2025 CNPN Telephone (FAMPWS) YESENIABECKY ([id number]) 1970 F Date Time Provider Department 01/09/25 BECKY IRELAND During your visit today, we recorded the following information about you: Nancy Leong LPN 01/09/2025 10:15 AM Signed Heena with [facility] HH OT calls today to update pcp on pt's bp: Heena reports when she got to pt's home bp 119/76 HR 122. Pt was sitting at this time. After being up and doing exercises bp 92/68 HR 113. After sitting and resting for awhile bp 88/67. Heena reports she gave pt some water and a cheese stick. Heena reports pt said she has no energy. Pt has an appt tomorrow with pcp. Heena wanted to update pcp before appt. MAR Diane Christy, APRN.ATMOSPHERIC CHEMIST 01/10/2025 12:34 PM Signed Has appt this afternoon. Becky Ireland APRN.ATMOSPHERIC CHEMIST Allergies As of Date: 01/09/2025 (No Known Allergies) Date Reviewed: 12/27/2024 Reviewed by: Castro Hall LPN - Fully Assessed Reason for Visit: bp update [Other] Prescriptions as of 01/10/2025 - lisinopril (ZESTRIL) 10 mg tablet Take 1 tablet by mouth once daily. - amLODIPine (NORVASC) 5 mg tablet Take 0.5 tablets by mouth once daily. - ciprofloxacin HCl (CIPRO) 500 mg tablet Take 1 tablet by mouth every 12 hours. - anastrozole (ARIMIDEX) 1 mg tablet Take 1 tablet by mouth once daily. - hydrOXYchloroQUINE (PLAQUENIL) 200 mg tablet Take 200 mg by mouth once daily. - cholecalciferol, vitamin D3, (VITAMIN D3 ORAL) Take 2,000 Units by mouth once daily. - certolizumab pegol (CIMZIA SUBCUTANEOUS) Inject 200 mg subcutaneously. Twice a month - calcium carbonate/vitamin D3 (CALCIUM 600 + D ORAL) Take 1 tablet by mouth once daily. - leflunomide (ARAVA) 20 mg tablet Take 20 mg by mouth once daily. - ferrous sulfate 325 mg (65 mg iron) tablet Take 325 mg by mouth once daily. - DAILY MULTIVITAMIN TAB Take 1 tablet by mouth once daily. 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 BP today was 95/68 at start of OT visit. After some exercises, and patient was standing up, pt became lightheaded and was sweating. BP after pt sat down was 85/59. Pulse 107-111. Temp in last 24 hours was 99.4. Pt eating and drinking. Taking medications as ordered. Patient has appt with Infectious Disease next Thursday. Nursing will be back next Thursday. After speaking with Heena, this triage nurse called patient to get condition update. Pt states she is feeling good right now. States her episodes seem to happen in middle of a workout, she rests, and then she is okay. Feels good right now. States she ate lunch. No chest pain, SOB, cold/clammy or confusion. Of note, pt saw her PCP on 12/27 and was advised to report to ER after office evaluation. Pt now reports she is taking lisinopril 10mg daily and Amlodipine 10 mg daily, which she takes about 8 am every morning. This is not noted in pt's most recent med list. Pt's PCP is out today. Will ask Dr. Root to review and advise if able, to ensure no other immediate recommendations are needed. Will also send to Jonathan Ireland CNP for review when returns. Heena is asking for a call back with provider's recommendation. [phone] CHEIKH Sutton, Jignesh Kyle MD 01/05/2025 2:30 PM Signed Cut amlodipine to 1/2 tab a day and call bp next time they are there. Push fluids. Call if any more symptoms. I added the bp meds to her med list Benita Carrera RN 01/05/2025 4:54 PM Signed Left VM for patient to call back for message below. Left VM for Heena, [facility] OT, to call back for patient message below. CHEIKH Sutton Amanda, RN 01/05/2025 5:38 PM Signed Pt called and is notified of providers message and instructions. Pt voices understanding. CHEIKH Ang Beth, LPN 01/06/2025 8:11 AM Signed Patient calling to verify what she was told yesterday, she was fully awake. Went over notes below from Dr Root with understanding. Told patient a pill splitter may work easier for her to break the pills in half. Becky Ireland APRN.RAY 01/06/2025 2:49 PM Signed Can we please see if we can get her in next week for a BP check? Castro Hall LPN 01/06/2025 3:19 PM Signed Pt notified. Appt scheduled. Castro Hall LPN Allergies As of Date: 01/05/2025 (No Known Allergies) Date Reviewed: 12/27/2024 Reviewed by: Castro Hall LPN - Fully Assessed Reason for Visit: Patient Update [1234] Order(s):lisinopril (ZESTRIL) 10 mg tabletTake 1 tablet by mouth once daily.Disp: 90 tabletRfl: amLODIPine (NORVASC) 5 mg tabletTake 0.5 tablets by mouth once daily.Disp: 45 tabletRfl: Prescriptions as of 01/06/2025 - lisinopril (ZESTRIL) 10 mg tablet Take 1 tablet by mouth once daily. - amLODIPine (NORVASC) 5 mg tablet Take 0.5 tablets by mouth once daily. - ciprofloxacin HCl (CIPRO) 500 mg tablet Take 1 tablet by mouth every 12 hours. - anastrozole (ARIMIDEX) 1 mg tablet Take 1 tablet by mouth once daily. - hydrOXYchloroQUINE (PLAQUENIL) 200 mg tablet Take 200 mg by mouth once daily. - cholecalciferol, vitamin D3, (VITAMIN D3 ORAL) Take 2,000 Units by mouth once daily. - certolizumab pegol (CIMZIA SUBCUTANEOUS) Inject 200 mg subcutaneously. Twice a month - calcium carbonate/vitamin D3 (CALCIUM 600 + D ORAL) Take 1 tablet by mouth once daily. - leflunomide (ARAVA) 20 mg tablet Take 20 mg by mouth once daily. - ferrous sulfate 325 mg (65 mg iron) tablet Take 325 mg by mouth once daily. - DAILY MULTIVITAMIN TAB Take 1 tablet by mouth once daily. 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 AMLODIPINE 5 MG TABLET 45 t* 01/05/2025 Class: Med Update Route: ORAL Sig: Take 0.5 tablets by mouth once daily. Encounter Status:Closed by WINTER ESCOTO on 01/06/25 [facility] ([id number]) 1970 F Date Time Provider Department 01/02/25 BECKY IRELAND During your visit today, we recorded the following information about you: Winter Escoto LPN 01/02/2025 10:10 AM Signed Heena from [facility] calling with update on patient heart rate and temp with her visit today. Her heart rate at rest was 113 to 117 and her temp on forehead was 100.1 and 100.2 and patient did oral thermometer was 99. Patient asking what should she be taking for her fever? Please advise Becky Ireland APRN.RAY 01/02/2025 11:48 AM Signed She can use tylenol as needed for fever. Stay well hydrated. How is she feeling? Castro Hall LPN 01/02/2025 1:47 PM Signed Phoned pt, notified of provider instructions. She states she had appt with Ortho today, they told her everything looked good and to take Tylenol as recommended. She states she is increasing her fluids and also noted that she wasn't using the incentive spirometer like they wanted her to, but she is going to start using that more now. Her temp is coming down, it was normal at Ortho appt today and normal at home after Ortho appt. MAR Stahl Christy, APRN.RAY 01/02/2025 2:36 PM Signed Noted. Becky Ireland APRN.ATMOSPHERIC CHEMIST Allergies As of Date: 01/02/2025 (No Known Allergies) Date Reviewed: 12/27/2024 Reviewed by: Castro Hall LPN - Fully Assessed Reason for Visit: Patient Update [1234] Patient Question [5867] Prescriptions as of 01/06/2025 - lisinopril (ZESTRIL) 10 mg tablet Take 1 tablet by mouth once daily. - amLODIPine (NORVASC) 5 mg tablet Take 0.5 tablets by mouth once daily. - ciprofloxacin HCl (CIPRO) 500 mg tablet Take 1 tablet by mouth every 12 hours. - anastrozole (ARIMIDEX) 1 mg tablet Take 1 tablet by mouth once daily. - hydrOXYchloroQUINE (PLAQUENIL) 200 mg tablet Take 200 mg by mouth once daily. - cholecalciferol, vitamin D3, (VITAMIN D3 ORAL) Take 2,000 Units by mouth once daily. - certolizumab pegol (CIMZIA SUBCUTANEOUS) Inject 200 mg subcutaneously. Twice a month - calcium carbonate/vitamin D3 (CALCIUM 600 + D ORAL) Take 1 tablet by mouth once daily. - leflunomide (ARAVA) 20 mg tablet Take 20 mg by mouth once daily. - ferrous sulfate 325 mg (65 mg iron) tablet Take 325 mg by mouth once daily. - DAILY MULTIVITAMIN TAB Take 1 tablet by mouth once daily. Problem List As Of Date 01/02/2025 Noted Resolved Climacteric [N95.1] 12/16/2013 Malignant neoplasm of central portion of right *12/23/2018 Rheumatoid arthritis involving multiple sites (*05/20/2021 Encounter Status:Closed by BECKY IRELAND on 01/02/25 Normal [facility] Culture, Blood (WB)on 2024 CUB Blood cultures x2, from two different sites No growth in 5 days. Normal [facility] Comment on above: Performed By: #### L 500.2500, L100.0100 #### [facility] [address] [place], [address] [facility] 12-28-2024 [facility] Telephone (ALBERTOWS) BECKY HUFFMAN ([id number]) 1970 F Date Time Provider Department 12/28/24 BECKY IRELAND [facility] During your visit today, we recorded the following information about you: Caio Hartley RN 12/28/2024 11:48 AM Signed [facility] HH reporting OT POC: will see patient 1 x week for 1 week, then 2 x week for 2 weeks, then 1 x week for 1 week with focus on shoulders and left wrist. Heena reports pt's BP on arrival was 99/73 (112). Pt stated she is feeling ok. Pt walked and did exercises, and became lightheaded. They stopped and patient drank water and gatorade and ate a snack. The lightheadedness resolved with fluid intake. Re-check BP was 77/58. Re-check BP 15 min later was 79/63 (100). Pt was asymptomatic at this time. Pt reported to Heena she has not eaten much, does not have appetite since home from hospital, and not sleeping much. Heena reports the [employer] will see patient at 1 pm today and will call pcp if BP abnormal. Becky Ireland APRN.RAY 12/28/2024 6:21 PM Signed Can we please check patient status? Becky Ireland APRN.Shu Noble LPN 12/28/2024 6:47 PM Signed Talked to Pt. She is doing well. She is doing better. Sent home from hospital. PT was there as well as HH. MAR Higgins Christy, APRN.RAY 12/28/2024 6:54 PM Signed Noted. Thank you! -Becky Allergies As of Date: 12/28/2024 (No Known Allergies) Date Reviewed: 12/27/2024 Reviewed by: Castro Hall LPN - Fully Assessed Reason for Visit: [facility] HH OT POC and concern of BP [Other] Results [95] Prescriptions as of 12/28/2024 - ciprofloxacin HCl (CIPRO) 500 mg tablet Take 1 tablet by mouth every 12 hours. - metroNIDAZOLE (FLAGYL) 500 mg tablet Take 500 mg by mouth three times a day. - anastrozole (ARIMIDEX) 1 mg tablet Take 1 tablet by mouth once daily. - hydrOXYchloroQUINE (PLAQUENIL) 200 mg tablet Take 200 mg by mouth once daily. - cholecalciferol, vitamin D3, (VITAMIN D3 ORAL) Take 2,000 Units by mouth once daily. - certolizumab pegol (CIMZIA SUBCUTANEOUS) Inject 200 mg subcutaneously. Twice a month - calcium carbonate/vitamin D3 (CALCIUM 600 + D ORAL) Take 1 tablet by mouth once daily. - leflunomide (ARAVA) 20 mg tablet Take 20 mg by mouth once daily. - ferrous sulfate 325 mg (65 mg iron) tablet Take 325 mg by mouth once daily. - DAILY MULTIVITAMIN TAB Take 1 tablet by mouth once daily. Problem List As Of Date 12/28/2024 Noted Resolved Climacteric [N95.1] 12/16/2013 Malignant neoplasm of central portion of right *12/23/2018 Rheumatoid arthritis involving multiple sites (*05/20/2021 Encounter Status:Closed by BECKY IRELAND on 12/28/24 Normal [facility] Urine Cultureon 12-28-2024 [facility] Culture exhibits no growth. Normal [facility] Comment on above: Performed By: #### M 100.2200 ####[facility] [id number] [facility] [place], [address] 12 Lead EKGon 12-27-2024 12 Lead EKG [facility] Cardiovascular Services [address] [place] [address] 12 Lead EKG 12/27/24 1042 MR#: [id number] Acct: [id number] Name: BECKY HUFFMAN TRAY Rep #: [id number] : 1970 54 From: Desi Schmidt MD Attending Dr: Status: DEP ER Ordering Dr: Andrae Estrada MD Date: 12/27/24 Location: ED Sex: F C Admitted: Test Reason : GENERAL Blood Pressure : */* mmHG Vent. Rate : 106 BPM Atrial Rate : 106 BPM P-R Int : 114 ms QRS Dur : 76 ms QT Int : 316 ms P-R-T Axes : 20 0 25 degrees QTcB Int : 419 ms Sinus tachycardia Otherwise normal ECG Confirmed by LEWIS HANNAH, BIANCA ([id number]), content editor TJ CHANCE ([id number]) on 01/02/2025 11:13:46 AM Referred By: Confirmed By: BIANCA SCHMIDT MD 01/02/25 1113 Date Desi Schmidt MD CC: PIN CHASER-C Becky Ireland; Dr. Andrae Estrada MD Signed Normal [facility] Absolute neutrophil countOrd ered By: Andrae Estrada on 12-27-2024 Neutrophils (Bld) [#/Vol] 8.3 10*3/uL High 2.0-7.7 [facility] Anion gap in Serum or Plasma Ordered By: Andrae Estrada on 12-27-2024 Anion gap [Moles/Vol] 13 mmol/L 5-15 [facility] BUN/creatinine ratioOrdered By: Andrae Estrada on 12-27-2024 Urea nitrogen/Creatinine [Mass ratio] 24.1 mg/mg High 10-20 [facility] Basophil percentageOrdered B y: Andrae Estrada on 12-27-2024 Basophils/100 WBC (Bld) 1.0 % 0-1 [facility] Bilirubin Test strip Ql (U)O rdered By: Andrae Estrada on 12-27-2024 Bilirubin Ql (U) Negative Negative [facility] Bilirubin, totalOrdered By: Andrae Estrada on 12-27-2024 Bilirubin [Mass/Vol] 0.71 mg/dL 0.00-1.30 [facility] Blood cultureOrdered By: Brock Estrada on 12-27-2024 Bacteria identified Cx Nom (Bld) No growth in 5 days. [facility] Bacteria identified Cx Nom (Bld) No growth in 5 days. [facility] CNOVon 12-27-2024 CNOV Office Visit (FAMPWS ) BECKY HUFFMAN ([id number]) 1970 F Date Time Provider Department 12/27/24 9:00 AM BECKY IRELAND During your visit today, we recorded the following information about you: Temperature Pulse Respiration Blood pressure 101.6 degrees 119/minute 16/minute 122/76 Becky Ireland APRN.CNP 12/27/2024 10:01 AM Signed Pt presents today for ER follow-up. Provider Documentation Becky Huffman is a 54 year old female here today for a follow up from recent hospitalization. I have reviewed the patient's hospital course including discharge summary, discharge medications , and follow up needs with the patient and any family members present at today's visit. HPI Patient had presented with URI type symptoms. Sore throat. Come in with urgent care on 12/12. Neg strep. Told strain of influenza. Started prednisone. Started more joint pain. Came in to FP on 12/16. Had some additional testing. Symptoms worsened that night and she ended up proceeding to the ER. She ended up being admitted and diagnosed with septic arthritis of the left wrist as well as bilateral shoulder septic arthritis. She had H. influenzae bacteremia and underwent left wrist irrigation and debridement with synovectomy on 05/16/2025. She had left shoulder arthroscopic irrigation and debridements of synovitis capsular tissue, subacromial bursa, and labral fraying on 12/17/2024. She rates shoulder arthroscopic irrigation and debridement on 12/19/2024. She was following with Dr. Evangelista with orthopedic surgery. She was also following with Dr. Romero for an infectious disease. She was discharged on 12/21/24 with home health. She is currently on cipro 500 mg BID and metronidazole 500 mg TID. She has been sleeping a lot. [place] like best night of sleep last night. + weakness. Has a follow-up with Dr. Evangelista on Thursday. She doesn't think fever at home. She is using oxycodone for pain. She has a mild cough -- tickle. She does have a hx of RA and her immunosuppressants have been placed on hold. PHYSICAL EXAMINATION BP 122/76 Pulse 119 Resp 16 LMP 12/04/2016 SpO2 93% GENERAL: pale. HEART: regular rate and rhythm. No murmur, rubs or gallops. Skin: sutures intact to left wrist, right and left shoulder. Well approximated and no drainage/redness. Lungs: Decreased right base. ABDOMEN: soft, non-tender, non-distended, no masses or organomegaly EXTREMITIES: no lower extremity edema. No skin discoloration. HEENT: Normocephalic, atraumatic and Extraocular muscles intact EXTREMITY: no lower extremity edema. No skin discoloration. NEURO: moves extremities equally ASSESSMENT/PLAN: 1. Fever in other diseases - ICD9: 780.61, ICD10: R50.81 (primary diagnosis) Pt with new onset of fever. Oxygen level 93% RA. Mild cough. L/S decreased right base. Concern that with fever, she is either failing outpatient oral antibiotics, or that she has developed pneumonia. Discussed that she really needs to return to ER for further eval. Patient agreeable to plan. Daughter to transport. Report to ER. 2. 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 Discussed treatment plan and patient voices understanding. Patient's questions answered appropriately. Medications and potential side effects were discussed and patient voices understanding. Return to the office as scheduled or as needed for worsening/no improvement. 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 - metroNIDAZOLE (FLAGYL) 500 mg tablet Take 500 mg by mouth three times a day. - anastrozole (ARIMIDEX) 1 mg tablet Take 1 tablet by mouth once daily. - hydrOXYchloroQUINE (PLAQUENIL) 200 mg tablet Take 200 mg by mouth once daily. - cholecalciferol, vitamin D3, (VITAMIN D3 ORAL) Take 2,000 Units by mouth once daily. - certolizumab pegol (CIMZIA SUBCUTANEOUS) Inject 200 mg subcutaneously. Twice a month - calcium carbonate/vitamin D3 (CALCIUM 600 + D ORAL) Take 1 tablet by mouth once daily. - leflunomide (ARAVA) 20 mg tablet Take 20 mg by mouth once daily. - ferrous sulfate 325 mg (65 mg iron) tablet Take 325 mg by mouth once daily. - DAILY MULTIVITAMIN TAB Take 1 tablet by mouth once daily. Problem List As Of Date 12/27/2024 Noted Resolved Climacteric [N95.1] 12/16/2013 Malignant neoplasm of central portion of right * (more content not included)... Normal [facility] CTA Chest W/WO Contraston CTA Chest W/WO Contrast [facility] Imaging Services [address] [place] [address] CTA Chest W/WO Contrast MR#: [id number] Acct: [id number] Name: BECKY HUFFMAN Rep #: [id number] : 1970 F 54 From: Teresita Pearson MD PCP: Becky Ireland, PIN CHASER-C Status: REG ER Study: CTA Chest W/WO Contrast Date of Exam: 12/27/24 Exam# [id number] Ordering Dr: Andrae Estrada MD EXAM: CT Angiography Chest Without and With Intravenous Contrast CLINICAL INDICATION: CP RIGHT, PLEURAL EFFUSION, ELEVATED D-DIMER TECHNIQUE: Axial computed tomographic angiography images of the chest without and with intravenous contrast. This CT exam was performed using one or more of the following dose reduction techniques: automated exposure control, adjustment of the mA and/or kV according to patient size, and/or use of iterative reconstruction technique. MIP reconstructed images were created and reviewed. COMPARISON: No relevant prior studies available. FINDINGS: LIMITATIONS: Suboptimal opacification of the pulmonary arteries. PULMONARY ARTERIES: No pulmonary embolism is identified. Some of the distal pulmonary arteries cannot be evaluated due to suboptimal opacification. AORTA: Scattered calcified atherosclerotic disease of aorta. No thoracic aortic aneurysm. LUNGS AND PLEURAL SPACES: Right pleural effusion with compressive atelectasis. Partial consolidation of the right upper lobe. No pneumothorax. HEART: Unremarkable. No cardiomegaly. No significant pericardial effusion. No evidence of RV dysfunction. BONES/JOINTS: No acute fracture. No dislocation. SOFT TISSUES: Partially visualized soft tissue emphysema and ill-defined hypodensity of the right axilla. Abscess can not be excluded. LYMPH NODES: Unremarkable. No enlarged lymph nodes. CT/CTA Chest W/WO Contrast IMPRESSION: 1. No pulmonary embolism is identified. Some of the distal pulmonary arteries cannot be evaluated due to suboptimal opacification. 2. Right pleural effusion with compressive atelectasis. Partial consolidation of the right upper lobe. 3. Partially visualized soft tissue emphysema and ill-defined hypodensity of the right axilla. Abscess can not be excluded. [facility] CC: ELIZABETH Ireland; Dr. Andrae Estrada MD Tourist Adviser: Signed Normal [facility] Carbon dioxide, total [Moles /volume] in Central venous bloodOrdered By: Andrae Estrada on 12-27-2024 CO2 [Moles/Vol] 25.1 mmol/L 21.0-32.0 [facility] Chest PA and Lateralon 12-27 Chest PA and Lateral [facility] Imaging Services [address] [place], [place] [id number] Chest PA and Lateral MR#: [id number] Acct: [id number] Name: BECKY HUFFMAN Rep #: [id number] : 1970 F 54 From: Jeffery gleason MD PCP: ELIZABETH Garcia Status: REG ER Study: Chest PA and Lateral Date of Exam: 12/27/24 Exam# [id number] Ordering Dr: Andrae Estrada MD PROCEDURE: CHEST PA AND LATERAL REASON FOR EXAM: FEVER TECHNIQUE: Frontal and lateral views of the chest. COMPARISON: Comparison is made with prior study dated February 02, 2019. FINDINGS: EKG electrodes are seen. Surgical clips are seen in the right axilla. Surgical clips are seen overlying the left breast. There is a new small right pleural effusion with right basilar atelectasis and/or infiltrate. RAD/Chest PA and Lateral IMPRESSION: There is a new small right pleural effusion with a right basilar infiltration and/or atelectasis. Reading Location: [facility] CC: ELIZABETH Ireland; Dr. Andrae Estrada MD Tourist Adviser: Signed Normal [facility] Chloride assayOrdered By: Mercedes Estrada on 12-27-2024 Chloride [Moles/Vol] 98 mmol/L 98-108 [facility] Comprehensive Metabolic Prof ilon 12-27-2024 Albumin [Mass/Vol] 3.2 g/dL Low 3.5-5.0 [facility] Comment on above: Performed By: #### L 500.2500, L100.0100 #### [facility] [address] [place], [address] Albumin/Globulin [Mass ratio] 0.8 {ratio} Low 0.9-2.4 [facility] Comment on above: Performed By: #### L 500.2500, L100.0100 #### [facility] [address] [place], [address] ALK PHOS 124 U/L High 35-104 [facility] Comment on above: Performed By: #### L 500.2500, L100.0100 #### [facility] [address] [place], [address] ALT [Catalytic activity/Vol] 17 U/L Normal <=34 [facility] Comment on above: Performed By: #### L 500.2500, L100.0100 #### [facility] [address] [place], [address] AST [Catalytic activity/Vol] 27 U/L Normal <=31 [facility] Comment on above: Performed By: #### L 500.2500, L100.0100 #### [facility] [address] [place], [address] Bilirubin [Mass/Vol] 0.71 mg/dL Normal 0.00-1.30 [facility] Comment on above: Performed By: #### L 500.2500, L100.0100 #### [facility] [address] [place], [address] BUN/CRE 24.1 RATIO High 10-20 [facility] Comment on above: Performed By: #### L 500.2500, L100.0100 #### [facility] [address] [place], [address] Calcium [Mass/Vol] 9.0 mg/dL Normal 7.6-11.0 [facility] Comment on above: Performed By: #### L 500.2500, L100.0100 #### [facility] [address] [place], [address] Chloride [Moles/Vol] 98 mmol/L Normal 98-108 [facility] Comment on above: Performed By: #### L 500.2500, L100.0100 #### [facility] [address] [place], [address] CO2 [Moles/Vol] 25.1 mmol/L Normal 21.0-32.0 [facility] Comment on above: Performed By: #### L 500.2500, L100.0100 #### [facility] [address] [place], [address] Creatinine [Mass/Vol] 0.56 mg/dL Low 0.70-1.20 [facility] Comment on above: Performed By: #### L 500.2500, L100.0100 #### [facility] [address] [place], [address] ECRCL 105.01 ml/min Normal 50-250 [facility] Comment on above: Performed By: #### L 500.2500, L100.0100 #### [facility] [address] [place], [address] GAP 13 Normal 5-15 [facility] Comment on above: Performed By: #### L 500.2500, L100.0100 #### [facility] [address] [place], [address] GFR/1.73 sq M.predicted among non-blacks MDRD (S/P/Bld) [Vol rate/Area] 107 mL/min/{1.73_m2} Normal >60 [facility] Comment on above: Result Comment: mL/m in/1.73m2 CKD-EPI Creatinine Equation (2020) Performed By: #### L 500.2500, L100.0100 #### [facility] [address] [place], [address] Globulin (S) [Mass/Vol] 3.9 g/dL Normal 2.2-4.2 [facility] Comment on above: Performed By: #### L 500.2500, L100.0100 #### [facility] [address] [place], [address] Glucose [Mass/Vol] 100 mg/dL High 70-99 [facility] Comment on above: Performed By: #### L 500.2500, L100.0100 #### [facility] [address] [place], [address] Potassium [Moles/Vol] 4.2 mmol/L Normal 3.3-5.1 [facility] Comment on above: Performed By: #### L 500.2500, L100.0100 #### [facility] [address] [place], [address] Sodium [Moles/Vol] 136 mmol/L Normal 133-145 [facility] Comment on above: Performed By: #### L 500.2500, L100.0100 #### [facility] [address] [place], [address] T PROT 7.1 g/dL Normal 5.9-8.4 [facility] Comment on above: Performed By: #### L 500.2500, L100.0100 #### [facility] [address] [place], [address] Urea nitrogen [Mass/Vol] 14 mg/dL Normal 4-19 [facility] Comment on above: Performed By: #### L 500.2500, L100.0100 #### [facility] [address] [place], [address] D-Dimer Quantitative (DVT/PE )on 12-27-2024 D-DIMER QUANT 4.26 FEU/ug/m Invalid Interpretation Code 0.27-0.49 [facility] Comment on above: Result Comment: D-Di shirin ELEVATED (>0.49): Additional studies and clinical assessments are indicated to conclude diagnosis of: Deep Vein Thrombosis (DVT) or Pulmonary Embolism (PE) CRITICAL VALUE CALLED TO ROXANNE 12/27/24 [facility] Evelyne Leblanc. RESULTS READ BACK BY SAME. Performed By: #### L 200.0200, L200.4175 #### [facility] [address] [facility] [place], [address] D-dimer measurement for deep venous thrombosisOrdered By: Andrae Estrada on 12-27-2024 D-Dimer Quantitative (PE/DVT) 4.26 FEU/ug/m High 0.27-0.49 [facility] Comment on above: D-Dimer ELEVATED (>0 .49): Additional studies and clinicalassessments are indicated to conclude diagnosis of:Deep Vein Thrombosis (DVT) or Pulmonary Embolism (PE)CRITICAL VALUE CALLED TO [id number]/11/25 115 Evelyne Leblanc.RESULTS READ BACK BY SAME. Emergency Department Summary on 12-27-2024 Emergency Department Summary [facility] Medical Records Department [address] [facility] [address] [place] [address] Emergency Department Summary 12/27/24 MR#: [id number] Acct: [id number] Name: DEREKBECKY HAYDEN TRAY Rep #: [id number] : 1970 54 From: Andrae Estrada MD PCP: ELIZABETH Garcia Status:REG ER Location: ED HPI History of Present Illness Chief Complaint: Fever Informant: patient Narrative Narrative: 54-year-old female was recently discharged from the hospital about 6 days ago for bacteremia and multifocal septic arthritis including both shoulders. She also had a washout of her left wrist in addition to those 2 joints. She has been on oral antibiotics. Her shoulders been sore, they are not getting worse, she can move them but it is painful to do so. She is doing physical therapy but having difficulty because she is weak all over. She denies any new symptoms, she was at her PCP for routine postadmission hospital follow-up appointment, she has not been experiencing any fevers or temperatures but when they checked her temperature in the office, she had a fever of 101.6. She said usually when she gets a temperature like that she gets chills and feels poorly and she does not today. She has not taken anything for it and here her temperature is 98.2. She has not yet seen infectious disease in follow-up but she is scheduled to do so at some point within the next couple weeks. She currently is on ciprofloxacin and metronidazole for total of 2 weeks. [facility] Medical History BRCA gene positive Breast cancer metastasized to axillary lymph node Breast cancer, right breast Rheumatoid arthritis Home Medications ???Medication ???Instructions ???Recorded ???Last Taken ???Type multivitamin 1 tab PO DAILY general health 11/19 11/06 Unknown History anastrozole 1 mg tablet 1 mg PO DAILY arthritis 10/13/19 U nknown History ferrous sulfate 325 mg (65 mg 325 mg PO DAILY anemia 10/13/19 Un known History iron) tablet leflunomide 10 mg tablet (Arava) 20 mg PO DAILY arthritis 12/19/19 Unknown History Held on 12/21/24. Instructions: Resume on 01/09/25. calcium 500 mg (as 1 ea PO BID def. 02/21/20 Unknown History carbonate)-vitamin D3 15 mcg (600 unit) tablet certolizumab pegol 400 mg/2 mL 200 mg subcut Q2W arthritis Unknown History (200 mg/mL x2) subcutaneous syringe kit (Cimzia) hydroxychloroquine 200 mg tablet 200 mg PO .COMPLEX arthritis 07/09 Unknown History Held on 12/21/24. Instructions: Resume on 01/09/25. hydrocortisone 2.5 % topical 1 applic topical BID PRN perineal 12/15/24 Unknown History ointment area leflunomide 20 mg tablet 20 mg PO DAILY arthritis 12/15/24 Unknown History Held on 12/21/24. Instructions: Resume on 01/09/25. acetaminophen 500 mg tablet 1,000 mg (2 x 500 mg) PO Q8 #0 tab s 12/21/24 Unknown Rx amlodipine 10 mg tablet 10 mg PO DAILY #90 tabs 12/21/24 U nknown Rx ciprofloxacin HCl 500 mg tablet 500 mg PO BID 14 days #28 tabs 03/12 Unknown Rx (Cipro) lisinopril 10 mg tablet 10 mg PO DAILY #60 tabs 12/21/24 U nknown Rx metronidazole 500 mg tablet 500 mg PO TID 14 days #42 tabs 03/12 Unknown Rx oxycodone 5 mg tablet 5 mg PO Q4H PRN PRN Pain Score 03/12 Unknown Rx 6-10 5 days #20 tabs Allergy/AdvReac Type Severity Reaction Status Date / Time No Known Allergies Allergy Verified 12/27/24 10:05 Family History Son Diabetes Grandfather Heart disease Mother Cancer possible throat cancer (Went through radiation) Father Cancer lung Surgical History S/P bilateral salpingo-oophorectomy S/P breast reconstruction S/P bilateral mastectomy Status post right breast lumpectomy ( 12/2018) History of tonsillectomy Social History household members: none housing: apartment current occupational status: employed Smoking Status: Never smoker alcohol intake: current alcohol intake frequency: holidays/special occasions only substance use type: does not use caffeine: Yes what type of physical activity do you participate in: walking and aerobics frequency: 5-6 times per week seatbelt use: always do you feel safe at home: Yes additional social history: Patient works at [employer] ROS ROS ED Constitutional Constitutional ED: Reports as per HPI; Denies chills or fever(s) Eyes Eyes: Denies change in vision or diplopia ENT ENT ED: Denies rhinorrhea or sore throat Cardiovascular Cardiovascular: Denies chest pain or palpitations Respiratory/Chest Respiratory/Chest: Denies cough or dyspnea Gastrointestinal Gastrointestinal: Denies abdomi (more content not included)... Normal [facility] Eosinophil percentageOrdered By: Andrae Estrada on 12-27-2024 Eosinophils/100 WBC (Bld) 0.2 % 0-5 [facility] Epithelial cells.squamous LM Ql (Urine sed)Ordered By: Andrae Estrada on 12-27-2024 Epithelial cells.squamous LM.HPF (Urine sed) [#/Area] 0 /[HPF] 5-10 [facility] Erythrocyte distribution wid th ratioOrdered By: Andrae Estrada on 12-27-2024 Erythrocyte distribution width (RBC) [Ratio] 13.2 % 11.6-14.6 [facility] Erythrocyte distribution wid th standard deviationOrdered By: Andrae Estrada on 12-27-2024 Erythrocyte distribution width (RBC) [Entitic vol] 45.6 fL High 35.1-43.9 [facility] Estimation of creatinine rancho aranceOrdered By: Andrae Estrada on 12-27-2024 Estimated Creatinine Clearance Calc 105.01 ml/min 50-250 [facility] GFR/1.73 sq M.predicted simi g non-blacks MDRD (S/P/Bld) [Vol rate/Area]Ordered By: Andrae Estrada on 12-27-2024 Estimated GFR (MDRD) Non-Af Amer 107 >60 [facility] Comment on above: mL/min/1.73m2 CKD-EP I Creatinine Equation (2020) Glucose Ql (U)Ordered By: Mercedes Estrada on 12-27-2024 Urine Glucose (UA) Normal mg/dl Normal [facility] Hematocrit Auto (Bld) [Volum e fraction]Ordered By: Andrae Estrada on 12-27-2024 Hematocrit (Bld) [Volume fraction] 30.2 % Low 37-47 [facility] Hemoglobin measurementOrdere d By: Andrae Estrada on 12-27-2024 Hemoglobin (Bld) [Mass/Vol] 10.0 g/dL Low 12.0-15.0 [facility] Immature granulocytes/100 WB C Auto (Bld)Ordered By: Andrae Estrada on 12-27-2024 Immature granulocytes/100 WBC (Bld) 0.600 % 0.0-0.9 [facility] Comment on above: IG% - Immature Granu locytes (promyelocytes, myelocytes and metamyelocytes) > 1% indicates that a LEFT SHIFT is Present. International normalized rat io (INR) calculationOrdered By: Andrae Estrada on 12-27-2024 INR Coag (Bld) [Relative time] 1.3 {INR} [facility] Ketones Test strip Ql (U)Ord ered By: Andrae Estrada on 12-27-2024 Ketones Ql (U) Negative Negative [facility] - Chemistry and C hemistry - challengeOrdered By: Andrae Estrada on 12-27-2024 AST [Catalytic activity/Vol] 27 U/L <32 [facility] Lactic Acidon 12-27-2024 Lactate [Moles/Vol] 1.0 mmol/L Normal 0.0-2.0 [facility] Comment on above: Order Comment: Y Performed By: #### L 500.2500, L100.0100 #### [facility] [address] [place], [address] Lactic acid measurementOrder ed By: Andrae Estrada on 12-27-2024 Lactate [Moles/Vol] 1.0 mmol/L 0.0-2.0 [facility] Lymphocytes Auto (Unsp spec) [#/Vol]Ordered By: Andrae Estrada on 12-27-2024 Lymphocytes (Bld) [#/Vol] 1.84 10*3/uL 0.83-4.51 [facility] Lymphocytes/100 WBC Auto (Un sp spec)Ordered By: Andrae Estrada on 12-27-2024 Lymphocytes/100 WBC (Bld) 14.6 % Low 19-41 [facility] MCV (mean corpuscular volume ) determinationOrdered By: Andrae Estrada on 12-27-2024 MCV (RBC) [Entitic vol] 94.1 fL 81-99 [facility] Mean corpuscular hemoglobin (MCH) determinationOrdered By: Andrae Estrada on 12-27-2024 MCH (RBC) [Entitic mass] 31.2 pg 27.0-32.0 [facility] Mean corpuscular hemoglobin concentration (MCHC) determinationOrdered By: Andrae Estrada on 12-27-2024 MCHC (RBC) [Mass/Vol] 33.1 g/dL 32-36 [facility] Mean platelet volume determi nationOrdered By: Andrae Estrada on 12-27-2024 Platelet mean volume (Bld) [Entitic vol] 9.0 fL 6.2-12.0 [facility] Microscopic analysis of urin e for red blood cells (RBC)Ordered By: Andrae Estrada on 12-27-2024 Urine RBC 0-5 SEEN /hpf 0-5 [facility] Monocyte percentageOrdered B y: Andrae Estrada on 12-27-2024 Monocytes/100 WBC (Bld) 18.0 % High 0-10 [facility] Mucus LM Ql (Urine sed)Order ed By: Andrae Estrada on 12-27-2024 Mucus Ql (Urine sed) 1+ /hpf [facility] Neutrophil percentageOrdered By: Andrae Estrada on 12-27-2024 Neutrophils/100 WBC (Bld) 65.6 % 47-70 [facility] Nitrite Test strip Ql (U)Ord ered By: Andrae Estrada on 12-27-2024 Nitrite Ql (U) Negative Negative [facility] Nucleated red blood cell per centageOrdered By: Andrae Estrada on 12-27-2024 Nucleated RBC/100 WBC (Bld) [Ratio] 0 % 0-5 [facility] Partial Thromboplast Timeon 12-27-2024 aPTT Coag (Bld) [Time] 35.5 s Normal 24.1-36.2 [facility] Comment on above: Performed By: #### L 500.2500, L100.0100 #### [facility] [address] [place] [address]. [place], [address] Pathologist review Mark (Unsp spec) [Interp]Ordered By: Andrae Estrada on 12-27-2024 Differential Pathologist's Review Deloris miller [facility] Differential Pathologist's Review Reviewed [facility] Comment on above: Previous reported re sult: Deloris miller Edited by: REVA on 02/02/25:1349SEE REPORT IN PATIENT'S EMR AMENDED REPORT 02/02/25 1349 PATH REV previously reported as: Deloris miller Platelet countOrdered By: Mercedes Estrada on 12-27-2024 Platelets (Bld) [#/Vol] 554 10*3/uL High 150-450 [facility] Platelets LM Ql (Bld)Ordered By: Andrae Estrada on 12-27-2024 Platelet Estimate MOD INC ADEQ [facility] Polychromasia LM Ql (Bld)Ord ered By: Andrae Estrada on 12-27-2024 Polychromasia 1+ [facility] Potassium (Unsp spec) [Mass/ Vol]Ordered By: Andrae Estrada on 12-27-2024 Potassium [Moles/Vol] 4.2 mmol/L 3.3-5.1 [facility] Protein Test strip Ql (U)Ord ered By: Andrae Estrada on 12-27-2024 Protein Ql (U) 30 mg/dl High Negative [facility] Prothrombin Time w/INRon INR Coag (PPP) [Relative time] 1.3 {INR} Normal [facility] Comment on above: Performed By: #### L 500.2500, L100.0100 #### [facility] [address] [place], [address] PT Coag (PPP) [Time] 16.4 s High 11.7-14.9 [facility] Comment on above: Performed By: #### L 500.2500, L100.0100 #### [facility] [address] [place], [address] Prothrombin timeOrdered By: Andrae Estrada on 12-27-2024 PT Coag (PPP) [Time] 16.4 s High 11.7-14.9 [facility] RBC Auto (Bld) [#/Vol]Ordere d By: Andrae Estrada on 12-27-2024 RBC (Bld) [#/Vol] 3.21 10*6/uL Low 4.2-5.4 [facility] Serum creatinine measurement (mass/volume)Ordered By: Andrae Estrada on 12-27-2024 Creatinine [Mass/Vol] 0.56 mg/dL Low 0.70-1.20 [facility] Serum globulin measurementOr dered By: Andrae Estrada on 12-27-2024 Globulin (S) [Mass/Vol] 3.9 g/dL 2.2-4.2 [facility] Serum glucose measurement (m ass/volume)Ordered By: Andrae Estrada on 12-27-2024 Glucose [Mass/Vol] 100 mg/dL High 70-99 [facility] Serum or plasma alanine ragland otransferase (ALT) measurementOrdered By: Andrae Estrada on 12-27-2024 ALT [Catalytic activity/Vol] 17 U/L <35 [facility] Serum or plasma albumin dali urement (mass/volume)Ordered By: Andrae Estrada on 12-27-2024 Albumin [Mass/Vol] 3.2 g/dL Low 3.5-5.0 [facility] Serum or plasma albumin/glob ulin mass ratioOrdered By: Andrae Estrada on 12-27-2024 Albumin/Globulin [Mass ratio] 0.8 {ratio} Low 0.9-2.4 [facility] Serum or plasma alkaline karthik sphatase measurementOrdered By: Andrae Estrada on 12-27-2024 ALP [Catalytic activity/Vol] 124 U/L High 35-104 [facility] Serum or plasma calcium dali urement (mass/volume)Ordered By: Andrae Estrada on 12-27-2024 Calcium [Mass/Vol] 9.0 mg/dL 7.6-11.0 [facility] Serum or plasma urea nitroge n measurement (mass/volume)Ordered By: Andrae Estrada on 12-27-2024 Urea nitrogen [Mass/Vol] 14 mg/dL 4-19 [facility] Sodium levelOrdered By: Jabier Estrada on 12-27-2024 Sodium [Moles/Vol] 136 mmol/L 133-145 [facility] Total proteinOrdered By: Brock Estrada on 12-27-2024 Protein [Mass/Vol] 7.1 g/dL 5.9-8.4 [facility] Urinalysis, Completeon 12-27 BACTERIA 1+ /hpf Normal None Seen [facility] Comment on above: Order Comment: COLLE CTOR TO SPECIFY Performed By: #### L 500.2500, L100.0100 #### [facility] [place], [address] EPI,SQUAMOUS 0-5 SEEN Normal 5-10 [facility] Comment on above: Order Comment: ROSMERY CTOR TO SPECIFY Performed By: #### L 500.2500, L100.0100 #### [facility] [address] [place], [address] Mucus Ql (Urine sed) 1+ /hpf Normal [facility] Comment on above: Order Comment: ROSMERY CTOR TO SPECIFY Performed By: #### L 500.2500, L100.0100 #### [facility] [address] [place], [address] RBC 0-5 SEEN Normal 0-5 [facility] Comment on above: Order Comment: ROSMERY CTOR TO SPECIFY Performed By: #### L 500.2500, L100.0100 #### [facility] [address] [place], [address] WBC 0-5 SEEN Normal 0-5 [facility] Comment on above: Order Comment: ROSMERY CTOR TO SPECIFY Performed By: #### L 500.2500, L100.0100 #### [facility] [address] [place], [address] Urine blood detectionOrdered By: Andrae Estrada on 12-27-2024 Urine Occult Blood 10 /ul High Negative [facility] Urine clarityOrdered By: Brock Estrada on 12-27-2024 Clarity (U) Clear Clear [facility] Urine color determinationOrd ered By: Andrae Estrada on 12-27-2024 Color (U) Yellow Yellow [facility] Urine cultureOrdered By: Brock Estrada on 12-27-2024 Bacteria identified Cx Nom (U) Culture exhibits no growth. [facility] Urine leukocyte esterase det ection by dipstickOrdered By: Andrae Estrada on 12-27-2024 Leukocyte esterase Test strip Ql (U) 25 /ul High Negative [facility] Urine pHOrdered By: Andrae Estrada on 12-27-2024 pH (U) 6.0 [pH] 5.0 - 8.0 [facility] Urine sediment bacteria coun t by microscopy (number/high power field)Ordered By: Andrae Natalie on 12-27-2024 Bacteria LM.HPF (Urine sed) [#/Area] 1 /[HPF] None Seen [facility] Urine specific gravity measu rementOrdered By: Andraelóepz Estrada on 12-27-2024 Specific gravity (U) [Rel density] 1.010 1.002-1.030 [facility] Urobilinogen Ql (U)Ordered B y: Andrae Estrada on 12-27-2024 Urine Urobilinogen Normal mg/dl Normal [facility] White blood cell (WBC) count Or[facility] 12-27-2024 WBC (Bld) [#/Vol] 12.6 10*3/uL High 4.4-11.0 [facility] White blood cell countOrdere d By: Andraelópez Estrada on 12-27-2024 Urine WBC 0-5 SEEN /hpf 0-5 [facility] aPTT Coag (PPP) [Time]Ordere d By: Andrae Natalie on 12-27-2024 aPTT Coag (Bld) [Time] 35.5 s 24.1-36.2 [facility] Culture, Anaerobic Any Sourc jonah 12-26-2024 CUAN UNK UNK COLLECTED IN OR-RIGHT SHOULDER SYNOVIAL FLUID No growth in 5 days. Normal [facility] Comment on above: Performed By: #### L 500.2500, L100.0100 #### [facility] [address] [place], [address] Basic Metabolic Profile (BMP )on 12-24-2024 BUN Normal 4-19 [facility] Comment on above: Result Comment: Canc elled via OM: Order cancelled - Patient discharged Performed By: #### L 100.0500, L500.2500 ####[facility] [address] [place], [address] BUN/CRE Normal 10-20 [facility] Comment on above: Result Comment: Canc elled via OM: Order cancelled - Patient discharged Performed By: #### L 100.0500, L500.2500 ####[facility] [address] [place], [address] Calcium Normal 7.6-11.0 [facility] Comment on above: Result Comment: Canc elled via OM: Order cancelled - Patient discharged Performed By: #### L 100.0500, L500.2500 ####[facility] [address] [place], [address] CL Normal 98-108 [facility] Comment on above: Result Comment: Canc elled via OM: Order cancelled - Patient discharged Performed By: #### L 100.0500, L500.2500 ####[facility] [address] [place], [address] CO2 Normal 21.0-32.0 [facility] Comment on above: Result Comment: Canc elled via OM: Order cancelled - Patient discharged Performed By: #### L 100.0500, L500.2500 ####[facility] [address] [place], [address] CREAT,SERUM Normal 0.70-1.20 [facility] Comment on above: Result Comment: Canc elled via OM: Order cancelled - Patient discharged Performed By: #### L 100.0500, L500.2500 ####[facility] [address] [place], [address] eGFR Normal >60 [facility] Comment on above: Result Comment: Canc elled via OM: Order cancelled - Patient discharged Performed By: #### L 100.0500, L500.2500 ####[facility] [address] [place], [address] GAP Normal 5-15 [facility] Comment on above: Result Comment: Canc elled via OM: Order cancelled - Patient discharged Performed By: #### L 100.0500, L500.2500 ####[facility] [address] [place], [address] GLU Normal 70-99 [facility] Comment on above: Result Comment: Canc elled via OM: Order cancelled - Patient discharged Performed By: #### L 100.0500, L500.2500 ####[facility] [address] [place], [address] Potassium Normal 3.3-5.1 [facility] Comment on above: Result Comment: Canc elled via OM: Order cancelled - Patient discharged Performed By: #### L 100.0500, L500.2500 ####[facility] [address] [place], [address] Basic Metabolic Profile (BMP) Normal 133-145 [facility] Comment on above: Result Comment: Canc elled via OM: Order cancelled - Patient discharged Performed By: #### L 100.0500, L500.2500 ####[facility] [address] [place], [address] CBC-Complete Blood Cnt No Di ffon 12-24-2024 HCT Normal 37-47 [facility] Comment on above: Result Comment: Canc elled via OM: Order cancelled - Patient discharged Performed By: #### L 100.0500, L500.2500 ####[facility] [address] [place], [address] HGB Normal 12.0-15.0 [facility] Comment on above: Result Comment: Canc elled via OM: Order cancelled - Patient discharged Performed By: #### L 100.0500, L500.2500 ####[facility] [address] [place], [address] MCH Normal 27.0-32.0 [facility] Comment on above: Result Comment: Canc elled via OM: Order cancelled - Patient discharged Performed By: #### L 100.0500, L500.2500 ####[facility] [address] [place], [address] MCHC Normal 32-36 [facility] Comment on above: Result Comment: Canc elled via OM: Order cancelled - Patient discharged Performed By: #### L 100.0500, L500.2500 ####[facility] [address] [place], [address] MCV Normal 81-99 [facility] Comment on above: Result Comment: Canc elled via OM: Order cancelled - Patient discharged Performed By: #### L 100.0500, L500.2500 ####[facility] [address] [place], [address] PLT Normal 150-450 [facility] Comment on above: Result Comment: Canc elled via OM: Order cancelled - Patient discharged Performed By: #### L 100.0500, L500.2500 ####[facility] [address] [place], [address] RBC Normal 4.2-5.4 [facility] Comment on above: Result Comment: Canc elled via OM: Order cancelled - Patient discharged Performed By: #### L 100.0500, L500.2500 ####[facility] [address] [place], [address] RDW CV Normal 11.6-14.6 [facility] Comment on above: Result Comment: Canc elled via OM: Order cancelled - Patient discharged Performed By: #### L 100.0500, L500.2500 ####[facility] [address] [place], [address] RDW SD Normal 35.1-43.9 [facility] Comment on above: Result Comment: Canc elled via OM: Order cancelled - Patient discharged Performed By: #### L 100.0500, L500.2500 ####[facility] [address] [place], [address] WBC Normal 4.4-11.0 [facility] Comment on above: Result Comment: Canc elled via OM: Order cancelled - Patient discharged Performed By: #### L 100.0500, L500.2500 ####[facility] [address] [place], [address] Basic Metabolic Profile (BMP )on 12-23-2024 BUN Normal 4-19 [facility] Comment on above: Result Comment: Canc elled via OM: Order cancelled - Patient discharged Performed By: #### L 100.0500, L500.2500 ####[facility] [address] [place], [address] BUN/CRE Normal 10-20 [facility] Comment on above: Result Comment: Canc elled via OM: Order cancelled - Patient discharged Performed By: #### L 100.0500, L500.2500 ####[facility] [address] [place], [address] Calcium Normal 7.6-11.0 [facility] Comment on above: Result Comment: Canc elled via OM: Order cancelled - Patient discharged Performed By: #### L 100.0500, L500.2500 ####[facility] [address] [place], [address] CL Normal 98-108 [facility] Comment on above: Result Comment: Canc elled via OM: Order cancelled - Patient discharged Performed By: #### L 100.0500, L500.2500 ####[facility] [address] [place], [address] CO2 Normal 21.0-32.0 [facility] Comment on above: Result Comment: Canc elled via OM: Order cancelled - Patient discharged Performed By: #### L 100.0500, L500.2500 ####[facility] [address] [place], [address] CREAT,SERUM Normal 0.70-1.20 [facility] Comment on above: Result Comment: Canc elled via OM: Order cancelled - Patient discharged Performed By: #### L 100.0500, L500.2500 ####[facility] [address] [place], [address] eGFR Normal >60 [facility] Comment on above: Result Comment: Canc elled via OM: Order cancelled - Patient discharged Performed By: #### L 100.0500, L500.2500 ####[facility] [address] [place], [address] GAP Normal 5-15 [facility] Comment on above: Result Comment: Canc elled via OM: Order cancelled - Patient discharged Performed By: #### L 100.0500, L500.2500 ####[facility] [address] [place], [address] GLU Normal 70-99 [facility] Comment on above: Result Comment: Canc elled via OM: Order cancelled - Patient discharged Performed By: #### L 100.0500, L500.2500 ####[facility] [address] [place], [address] Potassium Normal 3.3-5.1 [facility] Comment on above: Result Comment: Canc elled via OM: Order cancelled - Patient discharged Performed By: #### L 100.0500, L500.2500 ####[facility] [address] [place], [address] Basic Metabolic Profile (BMP) Normal 133-145 [facility] Comment on above: Result Comment: Canc elled via OM: Order cancelled - Patient discharged Performed By: #### L 100.0500, L500.2500 ####[facility] [address] [place], [address] CBC-Complete Blood Cnt No Di ffon 12-23-2024 HCT Normal 37-47 [facility] Comment on above: Result Comment: Canc elled via OM: Order cancelled - Patient discharged Performed By: #### L 100.0500, L500.2500 ####[facility] [address] [place], [address] HGB Normal 12.0-15.0 [facility] Comment on above: Result Comment: Canc elled via OM: Order cancelled - Patient discharged Performed By: #### L 100.0500, L500.2500 ####[facility] [address] [place], [address] MCH Normal 27.0-32.0 [facility] Comment on above: Result Comment: Canc elled via OM: Order cancelled - Patient discharged Performed By: #### L 100.0500, L500.2500 ####[facility] [address] [place], [address] MCHC Normal 32-36 [facility] Comment on above: Result Comment: Canc elled via OM: Order cancelled - Patient discharged Performed By: #### L 100.0500, L500.2500 ####[facility] [address] [place], [address] MCV Normal 81-99 [facility] Comment on above: Result Comment: Canc elled via OM: Order cancelled - Patient discharged Performed By: #### L 100.0500, L500.2500 ####[facility] [address] [place], [address] PLT Normal 150-450 [facility] Comment on above: Result Comment: Canc elled via OM: Order cancelled - Patient discharged Performed By: #### L 100.0500, L500.2500 ####[facility] [address] [place], [address] RBC Normal 4.2-5.4 [facility] Comment on above: Result Comment: Canc elled via OM: Order cancelled - Patient discharged Performed By: #### L 100.0500, L500.2500 ####[facility] [address] [place], [address] RDW CV Normal 11.6-14.6 [facility] Comment on above: Result Comment: Canc elled via OM: Order cancelled - Patient discharged Performed By: #### L 100.0500, L500.2500 ####[facility] [address] [place], [address] RDW SD Normal 35.1-43.9 [facility] Comment on above: Result Comment: Canc elled via OM: Order cancelled - Patient discharged Performed By: #### L 100.0500, L500.2500 ####[facility] [address] [place], [address] WBC Normal 4.4-11.0 [facility] Comment on above: Result Comment: Canc elled via OM: Order cancelled - Patient discharged Performed By: #### L 100.0500, L500.2500 ####[facility] [address] [place], [address] [facility] HUFF[facility] ([id number]) 1970 F Date Time Provider Department 12/23/24 [facility] During your visit today, we recorded the following information about you: Winter Escoto LPN 12/23/2024 10:04 AM Signed Rebeka from [facility] Home Health calling with [facility] plan of care 1 visit weekly for 4 weeks. No need to return call. Jignesh Root MD 12/23/2024 11:58 AM Signed noted Allergies As of Date: 12/23/2024 (No Known Allergies) Date Reviewed: 12/15/2024 Reviewed by: Hilda Umana APRN.ATMOSPHERIC CHEMIST - Fully Assessed Reason for Visit: Plan of care for [facility] [Other] Prescriptions as of 12/23/2024 - predniSONE (DELTASONE) 10 mg tablet Take 4 tabs daily for 3 days, then 2 tabs daily for 3 days, then 1 tab daily for 3 days with food. - anastrozole (ARIMIDEX) 1 mg tablet Take 1 tablet by mouth once daily. - hydrOXYchloroQUINE (PLAQUENIL) 200 mg tablet Take 200 mg by mouth once daily. - cholecalciferol, vitamin D3, (VITAMIN D3 ORAL) Take 2,000 Units by mouth once daily. - certolizumab pegol (CIMZIA SUBCUTANEOUS) Inject 200 mg subcutaneously. Twice a month - calcium carbonate/vitamin D3 (CALCIUM 600 + D ORAL) Take 1 tablet by mouth once daily. - leflunomide (ARAVA) 20 mg tablet Take 20 mg by mouth once daily. - ferrous sulfate 325 mg (65 mg iron) tablet Take 325 mg by mouth once daily. - DAILY MULTIVITAMIN TAB Take 1 tablet by mouth once daily. Problem List As Of Date 12/23/2024 Noted Resolved Climacteric [N95.1] 12/16/2013 Malignant neoplasm of central portion of right *12/23/2018 Rheumatoid arthritis involving multiple sites (*05/20/2021 Encounter Status:Closed by JIGNESH ROOT on 12/23/24 Normal [facility] CBC-Complete Blood Cnt No Di ffon 12-22-2024 HCT Normal 37-47 [facility] Comment on above: Result Comment: Canc elled via OM: Order cancelled - Patient discharged Performed By: #### L 500.2500, L100.0100 #### [facility] [address] [place], [address] HGB Normal 12.0-15.0 [facility] Comment on above: Result Comment: Canc elled via OM: Order cancelled - Patient discharged Performed By: #### L 500.2500, L100.0100 #### [facility] [address] [place], [address] MCH Normal 27.0-32.0 [facility] Comment on above: Result Comment: Canc elled via OM: Order cancelled - Patient discharged Performed By: #### L 500.2500, L100.0100 #### [facility] [address] [place], [address] MCHC Normal 32-36 [facility] Comment on above: Result Comment: Canc elled via OM: Order cancelled - Patient discharged Performed By: #### L 500.2500, L100.0100 #### [facility] [address] [place], [address] MCV Normal 81-99 [facility] Comment on above: Result Comment: Canc elled via OM: Order cancelled - Patient discharged Performed By: #### L 500.2500, L100.0100 #### [facility] [address] [place], [address] PLT Normal 150-450 [facility] Comment on above: Result Comment: Canc elled via OM: Order cancelled - Patient discharged Performed By: #### L 500.2500, L100.0100 #### [facility] [address] [place], [address] RBC Normal 4.2-5.4 [facility] Comment on above: Result Comment: Canc elled via OM: Order cancelled - Patient discharged Performed By: #### L 500.2500, L100.0100 #### [facility] [address] [place], [address] RDW CV Normal 11.6-14.6 [facility] Comment on above: Result Comment: Canc elled via OM: Order cancelled - Patient discharged Performed By: #### L 500.2500, L100.0100 #### [facility] [address] [place], [address] RDW SD Normal 35.1-43.9 [facility] Comment on above: Result Comment: Canc elled via OM: Order cancelled - Patient discharged Performed By: #### L 500.2500, L100.0100 #### [facility] [address] [place], [address] WBC Normal 4.4-11.0 [facility] Comment on above: Result Comment: Canc elled via OM: Order cancelled - Patient discharged Performed By: #### L 500.2500, L100.0100 #### [facility] [address] [place], [address] CNPNon 12-22-2024 CNPN Telephone (FAMPWS) BECKY HUFFMAN ([id number]) 1970 F Date Time Provider Department 12/22/24 [facility]KY [facility] During your visit today, we recorded the following information about you: Benita Carrera RN 12/22/2024 3:20 PM Signed Maren with [facility] calling and states patient discharged from [facility] yesterday with orders for Nursing, PT and OT. Asking if provider will sign and follow patient? Call Maren back at [phone]. CHEIKH Sutton William J, MD 12/23/2024 8:04 AM Signed Ok, will need a hospital follow up with one of us. Will need to be 40 minutes Benita Carrera RN 12/23/2024 9:23 AM Signed Maren with [facility] notified. CHEIKH Sutton Sherrie, RN 12/23/2024 9:23 AM Signed Hospital F/U appointment made for patient for 12/27/24. Patient having HH visit during time of this call. Unable to complete TCM information at this time. Benita Wurst, RN Allergies As of Date: 12/22/2024 (No Known Allergies) Date Reviewed: 12/15/2024 Reviewed by: Hilda Umana APRN.ATMOSPHERIC CHEMIST - Fully Assessed Reason for Visit: Home Health Request [Other] Prescriptions as of 01/03/2025 - ciprofloxacin HCl (CIPRO) 500 mg tablet Take 1 tablet by mouth every 12 hours. - metroNIDAZOLE (FLAGYL) 500 mg tablet Take 500 mg by mouth three times a day. - anastrozole (ARIMIDEX) 1 mg tablet Take 1 tablet by mouth once daily. - hydrOXYchloroQUINE (PLAQUENIL) 200 mg tablet Take 200 mg by mouth once daily. - cholecalciferol, vitamin D3, (VITAMIN D3 ORAL) Take 2,000 Units by mouth once daily. - certolizumab pegol (CIMZIA SUBCUTANEOUS) Inject 200 mg subcutaneously. Twice a month - calcium carbonate/vitamin D3 (CALCIUM 600 + D ORAL) Take 1 tablet by mouth once daily. - leflunomide (ARAVA) 20 mg tablet Take 20 mg by mouth once daily. - ferrous sulfate 325 mg (65 mg iron) tablet Take 325 mg by mouth once daily. - DAILY MULTIVITAMIN TAB Take 1 tablet by mouth once daily. Problem List As Of Date 12/22/2024 Noted Resolved Climacteric [N95.1] 12/16/2013 Malignant neoplasm of central portion of right *12/23/2018 Rheumatoid arthritis involving multiple sites (*05/20/2021 Encounter Status:Closed by BENITA CARRERA on 01/03/25 Normal [facility] Culture, Anaerobic Any Sourc jonah 12-22-2024 CUAN VANCO No growth in 5 days. Normal [facility] Comment on above: Performed By: #### L 500.2500, L100.0100 #### [facility] [address] [place], [address] Absolute neutrophil countOrd ered By: Gabriel Hernandez on 12-21-2024 Neutrophils (Bld) [#/Vol] 8.9 10*3/uL High 2.0-7.7 [facility] Anion gap in Serum or Plasma Ordered By: Gabriel Hernandez on 12-21-2024 Anion gap [Moles/Vol] 12 mmol/L 5-15 [facility] BUN/creatinine ratioOrdered By: Gabriel Hernandez on 12-21-2024 Urea nitrogen/Creatinine [Mass ratio] 36.3 mg/mg High 10-20 [facility] Basic Metabolic Profile (BMP )on 12-21-2024 BUN/CRE 36.3 RATIO High 10-20 [facility] Comment on above: Performed By: #### L 500.2500, L100.0100 #### [facility] [address] [place], [address] Calcium [Mass/Vol] 7.9 mg/dL Normal 7.6-11.0 [facility] Comment on above: Performed By: #### L 500.2500, L100.0100 #### [facility] [address] [place], [address] Chloride [Moles/Vol] 108 mmol/L Normal 98-108 [facility] Comment on above: Performed By: #### L 500.2500, L100.0100 #### [facility] [address] [place], [address] CO2 [Moles/Vol] 24.2 mmol/L Normal 21.0-32.0 [facility] Comment on above: Performed By: #### L 500.2500, L100.0100 #### [facility] [address] [place], [address] Creatinine [Mass/Vol] 0.48 mg/dL Low 0.70-1.20 [facility] Comment on above: Performed By: #### L 500.2500, L100.0100 #### [facility] [address] [place], [address] ECRCL 134.83 ml/min Normal 50-250 [facility] Comment on above: Performed By: #### L 500.2500, L100.0100 #### [facility] [address] [place], [address] GAP 12 Normal 5-15 [facility] Comment on above: Performed By: #### L 500.2500, L100.0100 #### [facility] [address] [place], [address] GFR/1.73 sq M.predicted among non-blacks MDRD (S/P/Bld) [Vol rate/Area] 111 mL/min/{1.73_m2} Normal >60 [facility] Comment on above: Result Comment: mL/m in/1.73m2 CKD-EPI Creatinine Equation (2020) Performed By: #### L 500.2500, L100.0100 #### [facility] [address] [place], [address] Glucose [Mass/Vol] 80 mg/dL Normal 70-99 [facility] Comment on above: Performed By: #### L 500.2500, L100.0100 #### [facility] [address] [place], [address] Potassium [Moles/Vol] 3.3 mmol/L Normal 3.3-5.1 [facility] Comment on above: Performed By: #### L 500.2500, L100.0100 #### [facility] [address] [place], [address] Sodium [Moles/Vol] 144 mmol/L Normal 133-145 [facility] Comment on above: Performed By: #### L 500.2500, L100.0100 #### [facility] [address] [place], [address] Urea nitrogen [Mass/Vol] 18 mg/dL Normal 4-19 [facility] Comment on above: Performed By: #### L 500.2500, L100.0100 #### [facility] [address] [place], [address] Basophil percentageOrdered B y: Gabriel Hernandez on 12-21-2024 Basophils/100 WBC (Bld) 0.2 % 0-1 [facility] CBC W/Diff, Automatedon Absolute Lymph 3.80 X10 3/uL Normal 0.83-4.51 [facility] Comment on above: Performed By: #### L 500.2500, L100.0100 #### [facility] [address] [place], [address] Absolute Neut 8.9 X10 3/uL High 2.0-7.7 [facility] Comment on above: Performed By: #### L 500.2500, L100.0100 #### [facility] [address] [place], [address] Basophils/100 WBC (Bld) 0.2 % Normal 0-1 [facility] Comment on above: Performed By: #### L 500.2500, L100.0100 #### [facility] [address] [place], [address] Eosinophils/100 WBC (Bld) 0.4 % Normal 0-5 [facility] Comment on above: Performed By: #### L 500.2500, L100.0100 #### [facility] [address] [place], [address] Erythrocyte distribution width (RBC) [Ratio] 13.3 % Normal 11.6-14.6 [facility] Comment on above: Performed By: #### L 500.2500, L100.0100 #### [facility] [address] [place], [address] Hematocrit (Bld) [Volume fraction] 30.3 % Low 37-47 [facility] Comment on above: Performed By: #### L 500.2500, L100.0100 #### [facility] [address] [place], [address] Hemoglobin (Bld) [Mass/Vol] 10.2 g/dL Low 12.0-15.0 [facility] Comment on above: Performed By: #### L 500.2500, L100.0100 #### [facility] [address] [place], [address] IG% 2.600 High 0.0-0.9 [facility] Comment on above: Result Comment: IG% - Immature Granulocytes (promyelocytes, myelocytes and metamyelocytes) > 1% indicates that a LEFT SHIFT is Present. Performed By: #### L 500.2500, L100.0100 #### [facility] [address] [place], [address] Lymphocytes/100 WBC (Bld) 27.0 % Normal 19-41 [facility] Comment on above: Performed By: #### L 500.2500, L100.0100 #### [facility] [address] [place], [address] MCH (RBC) [Entitic mass] 31.5 pg Normal 27.0-32.0 [facility] Comment on above: Performed By: #### L 500.2500, L100.0100 #### [facility] [address] [place], [address] MCHC (RBC) [Mass/Vol] 33.7 g/dL Normal 32-36 [facility] Comment on above: Performed By: #### L 500.2500, L100.0100 #### [facility] [address] [place], [address] MCV (RBC) [Entitic vol] 93.5 fL Normal 81-99 [facility] Comment on above: Performed By: #### L 500.2500, L100.0100 #### [facility] [address] [place], [address] Monocytes/100 WBC (Bld) 6.8 % Normal 0-10 [facility] Comment on above: Performed By: #### L 500.2500, L100.0100 #### [facility] [address] [place], [address] Neutrophils/100 WBC (Bld) 63.0 % Normal 47-70 [facility] Comment on above: Performed By: #### L 500.2500, L100.0100 #### [facility] [address] [place], [address] Nucleated RBC (Bld) [#/Vol] 0 10*3/uL Normal 0-5 [facility] Comment on above: Performed By: #### L 500.2500, L100.0100 #### [facility] [address] [place], [address] Platelet mean volume (Bld) [Entitic vol] 9.4 fL Normal 6.2-12.0 [facility] Comment on above: Performed By: #### L 500.2500, L100.0100 #### [facility] [address] [place], [address] Platelets (Bld) [#/Vol] 290 10*3/uL Normal 150-450 [facility] Comment on above: Performed By: #### L 500.2500, L100.0100 #### [facility] [address] [place], [address] RBC (Bld) [#/Vol] 3.24 10*6/uL Low 4.2-5.4 [facility] Comment on above: Performed By: #### L 500.2500, L100.0100 #### [facility] [address] [place], [address] RDW SD 45.4 fl High 35.1-43.9 [facility] Comment on above: Performed By: #### L 500.2500, L100.0100 #### [facility] [address] [place], [address] WBC (Bld) [#/Vol] 14.1 10*3/uL High 4.4-11.0 [facility] Comment on above: Performed By: #### L 500.2500, L100.0100 #### [facility] [address] [place], [address] Carbon dioxide, total [Moles /volume] in Central venous bloodOrdered By: Gabriel Hernandez on 12-21-2024 CO2 [Moles/Vol] 24.2 mmol/L 21.0-32.0 [facility] Chloride assayOrdered By: Mahnaz Hernandez on 12-21-2024 Chloride [Moles/Vol] 108 mmol/L 98-108 [facility] Culture, Anaerobic Any Sourc jonah 12-21-2024 CUAN UNK UNK LEFT WRIST FLUID collected in OR No growth in 5 days. Normal [facility] Comment on above: Performed By: #### L 500.2500, L100.0100 #### [facility] [address] [place], [address] CUAN UNK UNK left shoulder synovial fluid collected in OR No growth in 5 days. Normal [facility] Comment on above: Performed By: #### L 500.2500, L100.0100 #### [facility] [address] [place], [address] Eosinophil percentageOrdered By: Gabriel Hernandez on 12-21-2024 Eosinophils/100 WBC (Bld) 0.4 % 0-5 [facility] Erythrocyte distribution wid th ratioOrdered By: Gabirel Hernandez on 12-21-2024 Erythrocyte distribution width (RBC) [Ratio] 13.3 % 11.6-14.6 [facility] Erythrocyte distribution wid th standard deviationOrdered By: Gabriel Hernandez on 12-21-2024 Erythrocyte distribution width (RBC) [Entitic vol] 45.4 fL High 35.1-43.9 [facility] Estimation of creatinine rancho aranceOrdered By: Gabriel Hernandez on 12-21-2024 Estimated Creatinine Clearance Calc 134.83 ml/min 50-250 [facility] GFR/1.73 sq M.predicted simi g non-blacks MDRD (S/P/Bld) [Vol rate/Area]Ordered By: Gabriel Hernandez on 12-21-2024 Estimated GFR (MDRD) Non-Af Amer 111 >60 [facility] Comment on above: mL/min/1.73m2 CKD-EP I Creatinine Equation (2020) Hematocrit Auto (Bld) [Volum e fraction]Ordered By: Gabriel Hernandez on 12-21-2024 Hematocrit (Bld) [Volume fraction] 30.3 % Low 37-47 [facility] Hemoglobin measurementOrdere d By: Gabriel Hernandez on 12-21-2024 Hemoglobin (Bld) [Mass/Vol] 10.2 g/dL Low 12.0-15.0 [facility] Immature granulocytes/100 WB C Auto (Bld)Ordered By: Gabriel Hernandez on 12-21-2024 Immature granulocytes/100 WBC (Bld) 2.600 % High 0.0-0.9 [facility] Comment on above: IG% - Immature Granu locytes (promyelocytes, myelocytes and metamyelocytes) > 1% indicates that a LEFT SHIFT is Present. Lymphocytes Auto (Unsp spec) [#/Vol]Ordered By: Gabriel Hernandez on 12-21-2024 Lymphocytes (Bld) [#/Vol] 3.80 10*3/uL 0.83-4.51 [facility] Lymphocytes/100 WBC Auto (Un sp spec)Ordered By: Gabriel Hernandez on 12-21-2024 Lymphocytes/100 WBC (Bld) 27.0 % 19-41 [facility] MCV (mean corpuscular volume ) determinationOrdered By: Gabriel Hernandez on 12-21-2024 MCV (RBC) [Entitic vol] 93.5 fL 81-99 [facility] Mean corpuscular hemoglobin (MCH) determinationOrdered By: Gabriel Hernandez on 12-21-2024 MCH (RBC) [Entitic mass] 31.5 pg 27.0-32.0 [facility] Mean corpuscular hemoglobin concentration (MCHC) determinationOrdered By: Gabriel Hernandez on 12-21-2024 MCHC (RBC) [Mass/Vol] 33.7 g/dL 32-36 [facility] Mean platelet volume determi nationOrdered By: Gabriel Hernandez on 12-21-2024 Platelet mean volume (Bld) [Entitic vol] 9.4 fL 6.2-12.0 [facility] Monocyte percentageOrdered B y: Gabriel Hernandez on 12-21-2024 Monocytes/100 WBC (Bld) 6.8 % 0-10 [facility] Neutrophil percentageOrdered By: Gabriel Hernandez on 12-21-2024 Neutrophils/100 WBC (Bld) 63.0 % 47-70 [facility] Nucleated red blood cell per centageOrdered By: Gabriel Hernandez on 12-21-2024 Nucleated RBC/100 WBC (Bld) [Ratio] 0 % 0-5 [facility] Platelet countOrdered By: Mahnaz Hernandez on 12-21-2024 Platelets (Bld) [#/Vol] 290 10*3/uL 150-450 [facility] Potassium (Unsp spec) [Mass/ Vol]Ordered By: Gabriel Hernandez on 12-21-2024 Potassium [Moles/Vol] 3.3 mmol/L 3.3-5.1 [facility] RBC Auto (Bld) [#/Vol]Ordere d By: Gabriel Hernandez on 12-21-2024 RBC (Bld) [#/Vol] 3.24 10*6/uL Low 4.2-5.4 [facility] Serum creatinine measurement (mass/volume)Ordered By: Gabriel Hernandez on 12-21-2024 Creatinine [Mass/Vol] 0.48 mg/dL Low 0.70-1.20 [facility] Serum glucose measurement (m ass/volume)Ordered By: Gabriel Hernandez on 12-21-2024 Glucose [Mass/Vol] 80 mg/dL 70-99 [facility] Serum or plasma calcium dali urement (mass/volume)Ordered By: Gabriel Hernandez on 12-21-2024 Calcium [Mass/Vol] 7.9 mg/dL 7.6-11.0 [facility] Serum or plasma urea nitroge n measurement (mass/volume)Ordered By: Gabriel Hernandez on 12-21-2024 Urea nitrogen [Mass/Vol] 18 mg/dL 4-19 [facility] Sodium levelOrdered By: Robert Hernandez on 12-21-2024 Sodium [Moles/Vol] 144 mmol/L 133-145 [facility] White blood cell (WBC) count Ordered By: Gabriel Hernandez on 12-21-2024 WBC (Bld) [#/Vol] 14.1 10*3/uL High 4.4-11.0 [facility] Wound Cultureon 12-21-2024 WC UNK UNK COLLECTED IN OR-RIGHT SHOULDER SYNOVIAL FLUID No growth aerobically. Normal [facility] Comment on above: Performed By: #### L 500.2500, L100.0100 #### [facility] [address] [place], [address] Basic Metabolic Profile (BMP )on 12-20-2024 Anion gap [Moles/Vol] 14 mmol/L Normal 5-15 [facility] Comment on above: Performed By: #### L 500.2500, L100.0100 #### [facility] [address] [place], [address] BUN/CRE 32.4 RATIO High 10-20 [facility] Comment on above: Performed By: #### L 500.2500, L100.0100 #### [facility] [address] [place], [address] Calcium [Mass/Vol] 8.3 mg/dL Normal 7.6-11.0 [facility] Comment on above: Performed By: #### L 500.2500, L100.0100 #### [facility] [address] [place], [address] Chloride [Moles/Vol] 105 mmol/L Normal 96-108 [facility] Comment on above: Performed By: #### L 500.2500, L100.0100 #### [facility] [address] [place], [address] CO2 [Moles/Vol] 23.1 mmol/L Normal 22.0-29.0 [facility] Comment on above: Performed By: #### L 500.2500, L100.0100 #### [facility] [address] [place], [address] Creatinine [Mass/Vol] 0.43 mg/dL Low 0.70-1.20 [facility] Comment on above: Performed By: #### L 500.2500, L100.0100 #### [facility] [address] [place], [address] ECRCL 150.50 ml/min Normal 50-250 [facility] Comment on above: Performed By: #### L 500.2500, L100.0100 #### [facility] [address] [place], [address] GFR/1.73 sq M.predicted among non-blacks MDRD (S/P/Bld) [Vol rate/Area] 114 mL/min/{1.73_m2} Normal >60 [facility] Comment on above: Result Comment: mL/m in/1.73m2 CKD-EPI Creatinine Equation (2020) Performed By: #### L 500.2500, L100.0100 #### [facility] [address] [place], [address] Glucose [Mass/Vol] 122 mg/dL High 70-99 [facility] Comment on above: Performed By: #### L 500.2500, L100.0100 #### [facility] [address] [place], [address] Potassium [Moles/Vol] 3.7 mmol/L Normal 3.3-5.1 [facility] Comment on above: Performed By: #### L 500.2500, L100.0100 #### [facility] [address] [place], [address] Sodium [Moles/Vol] 142 mmol/L Normal 133-145 [facility] Comment on above: Performed By: #### L 500.2500, L100.0100 #### [facility] [address] [place], [address] Urea nitrogen [Mass/Vol] 14 mg/dL Normal 4-19 [facility] Comment on above: Performed By: #### L 500.2500, L100.0100 #### [facility] [address] [place], [address] CBC W/Diff, Automatedon 03-0 4-2024 Absolute Lymph 1.93 X10 3/uL Normal 0.83-4.51 [facility] Comment on above: Performed By: #### L 500.2500, L100.0100 #### [facility] [address] [place], [address] Absolute Neut 13.9 X10 3/uL High 2.0-7.7 [facility] Comment on above: Performed By: #### L 500.2500, L100.0100 #### [facility] [address] [place], [address] Basophils/100 WBC (Bld) 0.6 % Normal 0-1 [facility] Comment on above: Performed By: #### L 500.2500, L100.0100 #### [facility] [address] [place], [address] Eosinophils/100 WBC (Bld) 0.0 % Normal 0-5 [facility] Comment on above: Performed By: #### L 500.2500, L100.0100 #### [facility] [address] [place], [address] Erythrocyte distribution width (RBC) [Ratio] 13.2 % Normal 11.6-14.6 [facility] Comment on above: Performed By: #### L 500.2500, L100.0100 #### [facility] [address] [place], [address] Hematocrit (Bld) [Volume fraction] 34.1 % Low 37-47 [facility] Comment on above: Performed By: #### L 500.2500, L100.0100 #### [facility] [address] [place], [address] Hemoglobin (Bld) [Mass/Vol] 11.6 g/dL Low 12.0-15.0 [facility] Comment on above: Performed By: #### L 500.2500, L100.0100 #### [facility] [address] [place], [address] IG% 3.300 High 0.0-0.9 [facility] Comment on above: Result Comment: IG% - Immature Granulocytes (promyelocytes, myelocytes and metamyelocytes) > 1% indicates that a LEFT SHIFT is Present. Performed By: #### L 500.2500, L100.0100 #### [facility] [address] [place], [address] Lymphocytes/100 WBC (Bld) 10.9 % Low 19-41 [facility] Comment on above: Performed By: #### L 500.2500, L100.0100 #### [facility] [address] [place], [address] MCH (RBC) [Entitic mass] 31.3 pg Normal 27.0-32.0 [facility] Comment on above: Performed By: #### L 500.2500, L100.0100 #### [facility] [address] [place], [address] MCHC (RBC) [Mass/Vol] 34.0 g/dL Normal 32-36 [facility] Comment on above: Performed By: #### L 500.2500, L100.0100 #### [facility] [address] [place], [address] MCV (RBC) [Entitic vol] 91.9 fL Normal 81-99 [facility] Comment on above: Performed By: #### L 500.2500, L100.0100 #### [facility] [address] [place], [address] Monocytes/100 WBC (Bld) 6.8 % Normal 0-10 [facility] Comment on above: Performed By: #### L 500.2500, L100.0100 #### [facility] [address] [place], [address] Neutrophils/100 WBC (Bld) 78.4 % High 47-70 [facility] Comment on above: Performed By: #### L 500.2500, L100.0100 #### [facility] [address] [place], [address] Nucleated RBC (Bld) [#/Vol] 0 10*3/uL Normal 0-5 [facility] Comment on above: Performed By: #### L 500.2500, L100.0100 #### [facility] [address] [place], [address] Platelet mean volume (Bld) [Entitic vol] 9.7 fL Normal 6.2-12.0 [facility] Comment on above: Performed By: #### L 500.2500, L100.0100 #### [facility] [address] [place], [address] Platelets (Bld) [#/Vol] 255 10*3/uL Normal 150-450 [facility] Comment on above: Performed By: #### L 500.2500, L100.0100 #### [facility] [address] [place], [address] RBC (Bld) [#/Vol] 3.71 10*6/uL Low 4.2-5.4 [facility] Comment on above: Performed By: #### L 500.2500, L100.0100 #### [facility] [address] [place], [address] RDW SD 44.7 fl High 35.1-43.9 [facility] Comment on above: Performed By: #### L 500.2500, L100.0100 #### [facility] [address] [place], [address] WBC (Bld) [#/Vol] 17.8 10*3/uL High 4.4-11.0 [facility] Comment on above: Performed By: #### L 500.2500, L100.0100 #### [facility] [address] [place], [address] Chloride measurementOrdered By: Gabriel Hernandez on 12-20-2024 Chloride [Moles/Vol] 105 mmol/L 96-108 [facility] Culture, Anaerobic Any Sourc jonah 12-20-2024 CUAN No growth in 5 days. Normal [facility] Comment on above: Performed By: #### L 200.0200, L200.4175 #### [facility] [address] [place], [address] Gram Stainon 12-20-2024 GS UNK UNK COLLECTED IN OR-RIGHT SHOULDER SYNOVIAL FLUID Gram Stain No organisms seen No cells seen Normal [facility] Comment on above: Performed By: #### L 500.2500, L100.0100 #### [facility] [address] [place], [address] Wound Cultureon 12-20-2024 WC VANCO Clinical correlation necessary, Possible skin contamination. Bacillus sp., not anthracis Amount Growth Rare Normal [facility] Comment on above: Performed By: #### L 500.2500, L100.0100 #### [facility] [address] [place], [address] Bacteria identified Anaer cx Nom (Unsp spec)Ordered By: Gabriel Evangelista on 12-19-2024 Anaerobic Culture No growth in 5 days. [facility] Basic Metabolic Profile (BMP )on 12-19-2024 Anion gap [Moles/Vol] 12 mmol/L Normal 5-15 [facility] Comment on above: Performed By: #### L 500.2500, L100.0100 #### [facility] [address] [place], [address] BUN/CRE 25.6 RATIO High 10-20 [facility] Comment on above: Performed By: #### L 500.2500, L100.0100 #### [facility] [address] [place], [address] Calcium [Mass/Vol] 8.1 mg/dL Normal 7.6-11.0 [facility] Comment on above: Performed By: #### L 500.2500, L100.0100 #### [facility] [address] [place], [address] Chloride [Moles/Vol] 102 mmol/L Normal 96-108 [facility] Comment on above: Performed By: #### L 500.2500, L100.0100 #### [facility] [address] [place], [address] CO2 [Moles/Vol] 22.7 mmol/L Normal 22.0-29.0 [facility] Comment on above: Performed By: #### L 500.2500, L100.0100 #### [facility] [address] [place], [address] Creatinine [Mass/Vol] 0.47 mg/dL Low 0.70-1.20 [facility] Comment on above: Performed By: #### L 500.2500, L100.0100 #### [facility] [address] [place], [address] ECRCL 137.78 ml/min Normal 50-250 [facility] Comment on above: Performed By: #### L 500.2500, L100.0100 #### [facility] [address] [place], [address] GFR/1.73 sq M.predicted among non-blacks MDRD (S/P/Bld) [Vol rate/Area] 112 mL/min/{1.73_m2} Normal >60 [facility] Comment on above: Result Comment: mL/m in/1.73m2 CKD-EPI Creatinine Equation (2020) Performed By: #### L 500.2500, L100.0100 #### [facility] [address] [place], [address] Glucose [Mass/Vol] 97 mg/dL Normal 70-99 [facility] Comment on above: Performed By: #### L 500.2500, L100.0100 #### [facility] [address] [place], [address] Potassium [Moles/Vol] 3.1 mmol/L Low 3.3-5.1 [facility] Comment on above: Performed By: #### L 500.2500, L100.0100 #### [facility] [facility] [address] [place], [address] Sodium [Moles/Vol] 137 mmol/L Normal 133-145 [facility] Comment on above: Performed By: #### L 500.2500, L100.0100 #### [facility] [address] [place], [address] Urea nitrogen [Mass/Vol] 12 mg/dL Normal 4-19 [facility] Comment on above: Performed By: #### L 500.2500, L100.0100 #### [facility] [address] [facility] [place], [address] CBC W/Diff, Automatedon 03-0 3-2024 Absolute Lymph 2.48 X10 3/uL Normal 0.83-4.51 [facility] Comment on above: Performed By: #### L 500.2500, L100.0100 #### [facility] [address] [place], [address] Absolute Neut 12.8 X10 3/uL High 2.0-7.7 [facility] Comment on above: Performed By: #### L 500.2500, L100.0100 #### [facility] [address] [place], [address] Basophils/100 WBC (Bld) 0.6 % Normal 0-1 [facility] Comment on above: Performed By: #### L 500.2500, L100.0100 #### [facility] [address] [place], [address] Eosinophils/100 WBC (Bld) 0.7 % Normal 0-5 [facility] Comment on above: Performed By: #### L 500.2500, L100.0100 #### [facility] [address] [place], [address] Erythrocyte distribution width (RBC) [Ratio] 13.3 % Normal 11.6-14.6 [facility] Comment on above: Performed By: #### L 500.2500, L100.0100 #### [facility] [address] [place], [address] Hematocrit (Bld) [Volume fraction] 31.8 % Low 37-47 [facility] Comment on above: Performed By: #### L 500.2500, L100.0100 #### [facility] [address] [place], [address] Hemoglobin (Bld) [Mass/Vol] 10.6 g/dL Low 12.0-15.0 [facility] Comment on above: Performed By: #### L 500.2500, L100.0100 #### [facility] [address] [place], [address] IG% 3.200 High 0.0-0.9 [facility] Comment on above: Result Comment: IG% - Immature Granulocytes (promyelocytes, myelocytes and metamyelocytes) > 1% indicates that a LEFT SHIFT is Present. Performed By: #### L 500.2500, L100.0100 #### [facility] [address] [place], [address] Lymphocytes/100 WBC (Bld) 14.3 % Low 19-41 [facility] Comment on above: Performed By: #### L 500.2500, L100.0100 #### [facility] [address] [place], [address] MCH (RBC) [Entitic mass] 30.8 pg Normal 27.0-32.0 [facility] Comment on above: Performed By: #### L 500.2500, L100.0100 #### [facility] [address] [place], [address] MCHC (RBC) [Mass/Vol] 33.3 g/dL Normal 32-36 [facility] Comment on above: Performed By: #### L 500.2500, L100.0100 #### [facility] [address] [place], [address] MCV (RBC) [Entitic vol] 92.4 fL Normal 81-99 [facility] Comment on above: Performed By: #### L 500.2500, L100.0100 #### [facility] [address] [place], [address] Monocytes/100 WBC (Bld) 7.3 % Normal 0-10 [facility] Comment on above: Performed By: #### L 500.2500, L100.0100 #### [facility] [address] [place], [address] Neutrophils/100 WBC (Bld) 73.9 % High 47-70 [facility] Comment on above: Performed By: #### L 500.2500, L100.0100 #### [facility] [address] [place], [address] Nucleated RBC (Bld) [#/Vol] 0.1 10*3/uL Normal 0-5 [facility] Comment on above: Performed By: #### L 500.2500, L100.0100 #### [facility] [address] [place], [address] Platelet mean volume (Bld) [Entitic vol] 9.9 fL Normal 6.2-12.0 [facility] Comment on above: Performed By: #### L 500.2500, L100.0100 #### [facility] [address] [place], [address] Platelets (Bld) [#/Vol] 215 10*3/uL Normal 150-450 [facility] Comment on above: Performed By: #### L 500.2500, L100.0100 #### [facility] [address] [place], [address] RBC (Bld) [#/Vol] 3.44 10*6/uL Low 4.2-5.4 [facility] Comment on above: Performed By: #### L 500.2500, L100.0100 #### [facility] [address] [place], [address] RDW SD 45.0 fl High 35.1-43.9 [facility] Comment on above: Performed By: #### L 500.2500, L100.0100 #### [facility] [address] [place], [address] WBC (Bld) [#/Vol] 17.4 10*3/uL High 4.4-11.0 [facility] Comment on above: Performed By: #### L 500.2500, L100.0100 #### [facility] [address] [place], [address] Consultation - Infectious Dx on 12-19-2024 Consultation - Infectious Dx [facility] Medical Records Department [address] [place] [address] Consultation - Infectious Dx 12/19/24 1348 MR#: [id number] Acct: [id number] Name: BECKY HUFFMAN Rep #: [id number] : 1970 54 From: Travis Muñoz MD PCP: ELIZABETH Garcia Status:ADM IN [place] [facility] [id number] Assessment Plan Assessment/Plan (1) Septic arthritis of shoulder, left: QUALIFIERS: Septic arthritis organism: due to unspecified organism Qualified Code(s): M00.9 - Pyogenic arthritis, unspecified (2) Septic arthritis of wrist, left: QUALIFIERS: Septic arthritis organism: due to unspecified organism Qualified Code(s): M00.9 - Pyogenic arthritis, unspecified (3) Septic arthritis of shoulder, right: QUALIFIERS: Septic arthritis organism: due to unspecified organism Qualified Code(s): M00.9 - Pyogenic arthritis, unspecified (4) Rheumatoid arthritis: QUALIFIERS: Rheumatoid arthritis location: wrist Rheumatoid factor presence: u nspecified presence Laterality: left Qualified Code(s): M06.9 - Rheumatoid arthritis, unspecified (5) Bacteremia due to Gram-negative bacteria: PLAN: H. flu bacteremia with septic arthritis of bilat shoulders and L wrist. Cxs with H. flu, except one with bacillus. OR again planned, cont unasyn. Will follow, thank you HPI Consult Data Date of Consult: 12/19/24 HPI Narrative Reason for Consultation: septic arthritis HPI Narrative: BECKY HUFFMAN, is a 54 F with h/o rheumatoid arthritis, breast cancer, presented 12/15 with 4-5 days fever, chills, fatigue, dry cough. Dx with flu. Had progressive L shoulder and L wrist pain. She is R handed. Came to ED, aspiration done, now on unasyn, planned for OR today. Feeling a little better, fever resolved. Full ROS performed and neg except as noted above. [facility] Medical History BRCA gene positive Breast cancer metastasized to axillary lymph node Breast cancer, right breast Rheumatoid arthritis Home Medications ???Medication ???Instructions ???Recorded ???Last Taken ???Type multivitamin 1 tab PO DAILY general health 11/19 11/06 Unknown History anastrozole 1 mg tablet 1 mg PO DAILY arthritis 10/13/19 U nknown History ferrous sulfate 325 mg (65 mg 325 mg PO DAILY anemia 10/13/19 Un known History iron) tablet leflunomide 10 mg tablet (Arava) 20 mg PO DAILY arthritis 12/19/19 Unknown History calcium 500 mg (as 1 ea PO BID def. 02/21/20 Unknown History carbonate)-vitamin D3 15 mcg (600 unit) tablet certolizumab pegol 400 mg/2 mL 200 mg subcut Q2W arthritis Unknown History (200 mg/mL x2) subcutaneous syringe kit (Cimzia) hydroxychloroquine 200 mg tablet 200 mg PO BID arthritis 07/09/21 U nknown History hydrocortisone 2.5 % topical 1 applic topical BID PRN perineal 12/15/24 Unknown History ointment area leflunomide 20 mg tablet 20 mg PO DAILY arthritis 12/15/24 Unknown History prednisone 10 mg tablet 20 mg PO BID swollen neck 12/15/24 Unknown History prednisone 20 mg tablet 20 mg PO BID swollen neck 12/15/24 Unknown History Allergy/AdvReac Type Severity Reaction Status Date / Time No Known Allergies Allergy Verified 12/15/24 19:45 Family History Son Diabetes Grandfather Heart disease Mother Cancer possible throat cancer (Went through radiation) Father Cancer lung Surgical History S/P bilateral salpingo-oophorectomy S/P breast reconstruction S/P bilateral mastectomy Status post right breast lumpectomy ( 12/2018) History of tonsillectomy Social History household members: none housing: apartment current occupational status: employed Smoking Status: Never smoker alcohol intake: current alcohol intake frequency: holidays/special occasions only substance use type: does not use caffeine: Yes what type of physical activity do you participate in: walking and aerobics frequency: 5-6 times per week seatbelt use: always do you feel safe at home: Yes additional social history: Patient works at [employer], home Physical Exam Const alert, oriented x3 and no apparent distress General Appearance: cooperative HEENT normocephalic and head/scalp atraumatic Eyes PERRL and EOMs intact bilaterally Neck supple and No nodes Resp normal air movement and clear to auscultation bilaterally Cardio regular rate and regular rhythm GI soft to palpation, non-tender and non-distended Extremity General Extremity: edema Skin Skin Narrative: Bilat shoulder and L wrist swelling, soreness Neuro CN's II-XII intact bilaterally Lab / Micro Data Attestation: I reviewed the patient's lab results. (more content not included)... Normal [facility] Gram stainOrdered By: Eulalia Evangelista on 12-19-2024 Microscopic observation Gram stain Nom (Unsp spec) [facility] MR/POSTOP.Aleshia 12-19-2024 MR/POSTOP.[facility] Medical Records Department [address] [place] [address] Anesthesia Postop Eval I 12/19/24 1651 MR#: [id number] Acct: [id number] Name: BECKY HUFFMAN Rep #: [id number] : 1970 54 From: Bertha Casarez CRNA PCP: ROLANDO GarciaC Status:ADM IN Y Race: C Location: [place] [id number] Anesthesia: Postop Eval I Current Vital Signs Temperature: 98.3 F Pulse Rate: 108 Blood Pressure: 154/77 Respiratory Rate: 20 Pulse Ox: 99 Oxygen Delivery Method: Venturi Mask Oxygen Flow Rate (L/min): 8 Assessment Airway patent: Yes Spontaneous unlabored respirations: Yes Mental status: Awake nausea: No Vomiting: No Anesthesia Complication: No Fluid Hydration Crystalloid volume administer (ml): 900 Total IV fluid infused: 900 Progress Note Anesthesia document: Postop Eval 1 completed: Yes 12/19/24 165 Date Bertha Casarez AGENCY SALES DIRECTOR Cosigner Signature: Date CC: Signed Normal [facility] MR/[id number] 12-19-2024 MR/POSTOPAN2 [facility] Medical Records Department [address] [facility] [address] Anesthesia Postop Eval II 12/19/241714 MR#: [id number] Acct: [id number] Name: BECKY HUFFMAN Rep #: [id number] : 1970 54 From: Dewayne Parr MD PCP: ELIZABETH Garcia Status:ADM IN Y Race: C [place] [facility] [id number] Anesthesia Postop Eval I Sum Postop Eval Completion status Anesthesia document: Postop Eval 1 completed: Yes Anesthesia Postop Eval I Summary Anesthesia Postop Eval I Summary: Anesthesia Postop Eval I: Assessment Summary Airway patent Yes 12/19/24 16:52 [employer]Y SALES DIRECTOR.[email or web address] Spontaneous unlabored Yes 12/19/24 16:52 AGENCY SALES DIRECTOR.LMIL respirations Mental status Awake 12/19/24 16:52 AGENCY SALES DIRECTOR.LMIL nausea No 12/19/24 16:52 AGENCY SALES DIRECTOR.LMIL Vomiting No 12/19/24 16:52 AGENCY SALES DIRECTOR.LMIL Anesthesia Postop Eval I: Fluid Summary Crystalloid volume administer 900 12/19/24 16:52 AGENCY SALES DIRECTOR.LMIL (ml) Colloids volume administered ( ml) Blood Product volume administered (ml) Total IV fluid infused 900 12/19/24 16:52 AGENCY SALES DIRECTOR.LMIL Anesthesia Postop Eval I: Summary Notes Anesthesia Complication No 12/19/24 16:52 AGENCY SALES DIRECTOR.LMIL Anesthesia Complication Comment: Post-operative progress note Anesthesia: Postop Eval II Evaluation Mental status: Awake Pain Level: 2 nausea: No Vomiting: No 03/03/25 1715 Date Dewayne Roman Signature: Date CC: Signed Normal [facility] Operative Reporton 5 Operative Report [facility] Medical Records Department [address] [place] [address] Operative Report 12/19/24 1652 MR#: [id number] Acct: [id number] Name: YESENIABECKY DIANN Rep #: [id number] : 1970 54 From: Gabriel Evangelista DO PCP: ELIZABETH Garcia Status:ADM IN Location: [place] [id number] Operative Report (Standard) Operative Information Date of Procedure: 12/19/24 Pre-Operative Diagnosis: Right shoulder septic arthritis Post-Operative Diagnosis: Right shoulder septic arthritis Surgery/Procedure Performed: Right shoulder arthroscopic irrigation and debridement evidence specialist: No Type of Anesthesia: General RN Documented Start/Stop Times: Operation Date: 12/19/24 16:45 Case Time Into Pre-Op 12/19/24 14:35 Out of Pre-Op 12/19/24 15:38 Anesthesia Start 12/19/24 15:41 Into Room 12/19/24 15:41 Procedure Start 12/19/24 16:10 Procedure End 12/19/24 16:35 Anesthesia End 12/19/24 16:40 Out of Room 12/19/24 16:40 Into Recovery 12/19/24 16:45 Procedure Start Time: 16:10 Procedure Stop Time: 16:35 Select all DRAINS/GRAFTS/IMPLANTS that apply: None Estimated Blood Loss: 10 cc Specimen collected: Yes Description of specimen(s) removed: Right shoulder synovial fluid Description of surgery: Patient was identified in the preoperative holding area by name, medical record number, and date of . The operative extremity was marked. Patient was then brought to the operative suite. She was positioned supine on a standard operating table. General anesthesia was induced and endotracheal tube placed. We then performed a timeout confirming the side, site, and operation to be performed. No concerns were voiced and we elected to proceed with surgery. Patient was receiving scheduled Zosyn and did not require preoperative dose. Patient was then positioned in a lateral decubitus position with the right side up. Axillary roll was placed. All bony prominences were well-padded. We spun the bed 45 degrees. She was held in place with a beanbag. Right upper extremity was then prepped and draped in a normal, sterile orthopedic fashion. 10 pounds of traction was applied to left arm through an arthroscopic traction tower. Standard posterior portal was then established with 11 blade scalpel. Blunt tipped trocar was used to enter the glenohumeral joint. Minimal turbid fluid was noted, no gross purulence. Arthroscope was introduced. The joint was filled with normal saline with epinephrine. Diagnostic arthroscopy elevated extensive synovitis, labral fraying, capsulitis. Anterior interval portal was established. Shaver was used to debride synovitis, capsular tissue and degenerative labral fraying. Cartilage appeared pristine. Minimal fraying of the articular sided supraspinatus was noted. Biceps tendon was pristine. I then placed a an 18-gauge needle through the anterior lateral shoulder through the anterior head of the deltoid into the subdeltoid bursa. Turbid fluid was aspirated and sent for culture. An anterior superior lateral portal was then established through this vector. Shaver was introduced. Approximately 4 L normal saline with epinephrine was then washed through the glenohumeral joint. At this time I withdrew the arthroscope and reentered the shoulder and subacromial space. Lateral portal was established. Bursitis was noted and debrided with arthroscopic shaver. Bursal sided rotator cuff appeared pristine. No obvious purulence was noted in the subacromial space. Approximately 2 L was lavaged through the subacromial space. Arthroscopic instruments were then removed. Portal sites were closed in interrupted [id number]-rdtgr fashion. Field and intra- articular block was administered with 30 cc total half percent bupivacaine plain. Bulky sterile compression dressing was applied. She was placed in a simple sling. She was awakened from anesthesia and extubated the operative suite. She was transferred to her rrupert and subsequently to PACU in stable condition. Postoperative plan: Transferred back to [facility] after meeting PACU criteria. Sling for comfort right upper extremity. Regular diet. Heparin to restart tomorrow. No plan for repeat I D of involved joints at this time. From my standpoint if patient responds well to I D, reasonable for possible discharge home tomorrow once definitive antibiotic recommendations are determined. Defer to ID and primary regarding PICC versus p.o. antibiotics. OT ordered for range of motion bilateral upper extremities. Surgical Findings: Turbid fluid in the subdeltoid bursa, sent for culture Complications Complications: No Admit VTE Documentation VTE Present on Admission: No VTE Mechan Device Prophylaxis: SCD's VTE Pharm Prophylaxis ordered?: Yes 12/19/24 6768 Cosigner Signature (if applicable): CC: ELIZABETH Ireland; Dr. Mauricio Pavon DO; Dr. Gabriel Saldana (more content not included)... Normal [facility] Routine wound cultureOrdered By: Gabriel Evangelista on 12-19-2024 Wound Culture No growth aerobically. [facility] Basic Metabolic Profile (BMP )on 12-18-2024 Anion gap [Moles/Vol] 12 mmol/L Normal 5-15 [facility] Comment on above: Performed By: #### L 500.2500, L100.0100 #### [facility] [address] [place], [address] BUN/CRE 36.6 RATIO High 10-20 [facility] Comment on above: Performed By: #### L 500.2500, L100.0100 #### [facility] [address] [place], [address] Calcium [Mass/Vol] 8.5 mg/dL Normal 7.6-11.0 [facility] Comment on above: Performed By: #### L 500.2500, L100.0100 #### [facility] [address] [place], [address] Chloride [Moles/Vol] 107 mmol/L Normal 96-108 [facility] Comment on above: Performed By: #### L 500.2500, L100.0100 #### [facility] [address] [place], [address] CO2 [Moles/Vol] 19.9 mmol/L Low 22.0-29.0 [facility] Comment on above: Performed By: #### L 500.2500, L100.0100 #### [facility] [address] [place], [address] Creatinine [Mass/Vol] 0.55 mg/dL Low 0.70-1.20 [facility] Comment on above: Performed By: #### L 500.2500, L100.0100 #### [facility] [address] [place], [address] ECRCL 117.74 ml/min Normal 50-250 [facility] Comment on above: Performed By: #### L 500.2500, L100.0100 #### [facility] [address] [place], [address] GFR/1.73 sq M.predicted among non-blacks MDRD (S/P/Bld) [Vol rate/Area] 108 mL/min/{1.73_m2} Normal >60 [facility] Comment on above: Result Comment: mL/m in/1.73m2 CKD-EPI Creatinine Equation (2020) Performed By: #### L 500.2500, L100.0100 #### [facility] [address] [place], [address] Glucose [Mass/Vol] 82 mg/dL Normal 70-99 [facility] Comment on above: Performed By: #### L 500.2500, L100.0100 #### [facility] [address] [place], [address] Potassium [Moles/Vol] 3.3 mmol/L Normal 3.3-5.1 [facility] Comment on above: Performed By: #### L 500.2500, L100.0100 #### [facility] [address] [place], [address] Sodium [Moles/Vol] 139 mmol/L Normal 133-145 [facility] Comment on above: Performed By: #### L 500.2500, L100.0100 #### [facility] [address] [place], [address] Urea nitrogen [Mass/Vol] 20 mg/dL High 4-19 [facility] Comment on above: Performed By: #### L 500.2500, L100.0100 #### [facility] [address] [place], [address] CBC W/Diff, Automatedon 03-0 2-2024 Absolute Lymph 2.27 X10 3/uL Normal 0.83-4.51 [facility] Comment on above: Performed By: #### L 500.2500, L100.0100 #### [facility] [address] [place], [address] Absolute Neut 20.4 X10 3/uL High 2.0-7.7 [facility] Comment on above: Performed By: #### L 500.2500, L100.0100 #### [facility] [address] [place], [address] Basophils/100 WBC (Bld) 0.7 % Normal 0-1 [facility] Comment on above: Performed By: #### L 500.2500, L100.0100 #### [facility] [address] [place], [address] Eosinophils/100 WBC (Bld) 0.6 % Normal 0-5 [facility] Comment on above: Performed By: #### L 500.2500, L100.0100 #### [facility] [address] [place], [address] Erythrocyte distribution width (RBC) [Ratio] 13.2 % Normal 11.6-14.6 [facility] Comment on above: Performed By: #### L 500.2500, L100.0100 #### [facility] [address] [place], [address] Hematocrit (Bld) [Volume fraction] 33.4 % Low 37-47 [facility] Comment on above: Performed By: #### L 500.2500, L100.0100 #### [facility] [address] [place], [address] Hemoglobin (Bld) [Mass/Vol] 11.2 g/dL Low 12.0-15.0 [facility] Comment on above: Performed By: #### L 500.2500, L100.0100 #### [facility] [address] [place], [address] IG% 1.100 High 0.0-0.9 [facility] Comment on above: Result Comment: IG% - Immature Granulocytes (promyelocytes, myelocytes and metamyelocytes) > 1% indicates that a LEFT SHIFT is Present. Performed By: #### L 500.2500, L100.0100 #### [facility] [address] [place], [address] Lymphocytes/100 WBC (Bld) 9.3 % Low 19-41 [facility] Comment on above: Performed By: #### L 500.2500, L100.0100 #### [facility] [address] [place], [address] MCH (RBC) [Entitic mass] 31.6 pg Normal 27.0-32.0 [facility] Comment on above: Performed By: #### L 500.2500, L100.0100 #### [facility] [address] [place], [address] MCHC (RBC) [Mass/Vol] 33.5 g/dL Normal 32-36 [facility] Comment on above: Performed By: #### L 500.2500, L100.0100 #### [facility] [address] [place], [address] MCV (RBC) [Entitic vol] 94.4 fL Normal 81-99 [facility] Comment on above: Performed By: #### L 500.2500, L100.0100 #### [facility] [address] [place], [address] Monocytes/100 WBC (Bld) 4.5 % Normal 0-10 [facility] Comment on above: Performed By: #### L 500.2500, L100.0100 #### [facility] [address] [place], [address] Neutrophils/100 WBC (Bld) 83.8 % High 47-70 [facility] Comment on above: Performed By: #### L 500.2500, L100.0100 #### [facility] [address] [place], [address] Nucleated RBC (Bld) [#/Vol] 0 10*3/uL Normal 0-5 [facility] Comment on above: Performed By: #### L 500.2500, L100.0100 #### [facility] [address] [place], [address] Platelet mean volume (Bld) [Entitic vol] 10.1 fL Normal 6.2-12.0 [facility] Comment on above: Performed By: #### L 500.2500, L100.0100 #### [facility] [address] [place], [address] Platelets (Bld) [#/Vol] 196 10*3/uL Normal 150-450 [facility] Comment on above: Performed By: #### L 500.2500, L100.0100 #### [facility] [address] [place], [address] RBC (Bld) [#/Vol] 3.54 10*6/uL Low 4.2-5.4 [facility] Comment on above: Performed By: #### L 500.2500, L100.0100 #### [facility] [address] [place], [address] RDW SD 45.7 fl High 35.1-43.9 [facility] Comment on above: Performed By: #### L 500.2500, L100.0100 #### [facility] [address] [place], [address] WBC (Bld) [#/Vol] 24.3 10*3/uL High 4.4-11.0 [facility] Comment on above: Performed By: #### L 500.2500, L100.0100 #### [facility] [address] [place], [address] Extremity Upper WITH Contras ton 12-18-2024 Extremity Upper WITH Contrast [facility] Imaging Services [address] [place] [address] Extremity Upper WITH Contrast MR#: [id number] Acct: [id number] Name: BECKY HUFFMAN Rep #: [id number] : 1970 F 54 From: Sis Fleming MD PCP: ELIZABETH Garcia Status: ADM IN Study: Extremity Upper WITH Contrast Date of Exam: Exam# [id number] Ordering Dr: Gabriel Evangelista DO PROCEDURE: EXTREMITY UPPER WITH CONTRAST REASON FOR EXAM: Infection, rule out periarticular abscess TECHNIQUE: Right upper extremity CT with contrast. COMPARISON: None. FINDINGS: Bones: No evidence of fracture. No osseous erosions. Hyperdense humeral head mass measuring 6.9 x 5.2 mm Joints: Hypodense fluid collection about the right glenohumeral joint and along the anterior scapula scapula component measures approximately 2.5 x 6.8 cm. Anterior humeral head hypodensity measures 3.9 x 1.4 cm. There is also an axillary component measuring 2 point 4 x 4.5 cm. Soft Tissues: Unremarkable. Visualized thoracic cavity: Moderate right pleural effusion with compressive airspace disease. CT/Extremity Upper WITH Contrast IMPRESSION: 1. Findings suggesting of right glenohumeral intra-articular abscess and surrounding soft tissues including the axilla and anterior scapula. Concern for septic joint. No osseous erosions 2. Moderate right pleural effusion with compressive consolidation. 3. Humeral head bone infarct versus bone island One or more dose reduction techniques were used (e.g., Automated exposure control, adjustment of the mA and/or kV according to patient size, use of iterative reconstruction technique). Reading Location: [place] CC: ELIZABETH Ireland; Dr. Gabriel Evangelista DO Tourist Adviser: Signed Normal [facility] US Thyroid glandon IMPRESSION: No abnormality is identified. Tourist Adviser: JAEL Transcribe Date/Time: Dec 18 2024 5:57A Dictated by : DANNY BLAND MD This examination was interpreted and the report reviewed and electronically signed by: DANNY BLAND MD on Dec 18 2024 6:00AM [facility] DIVISION OF RADIOLOGY * * *Final Report* * * DATE OF EXAM: Dec 15 2024 3:28PM WR 1048 - US THYROID/PARATHYROID / PROCEDURE REASON: multiple diagnoses * * * * Physician Interpretation * * * * ULTRASOUND OF THE THYROID GLAND HISTORY: Sore throat Lymphadenopathy Oropharyngeal dysphagia History of breast cancer TECHNIQUE: Ultrasound of the thyroid gland. Grayscale and color Doppler images. Images were obtained and stored in a permanent archive. COMPARISON: Same day head/neck ultrasound. RESULT: The thyroid gland is normal size. Right Lobe: 4.2 cm x 1.3 cm x 1.8 cm Left Lobe: 3.6 cm x 1.2 cm x 1.1 cm Isthmus: 0.2 cm Parenchyma: The parenchyma is homogeneous. Thyroid nodules: None - DIVISION OF RADIOLOGY Provider, [facility] Lise [facility] - 12/18/2024 * * *Final Report* * * DATE OF EXAM: Dec 15 2024 3:28PM WRU 1048 - US THYROID/PARATHYROID / PROCEDURE REASON: multiple diagnoses * * * * Physician Interpretation * * * * ULTRASOUND OF THE THYROID GLAND HISTORY: Sore throat Lymphadenopathy Oropharyngeal dysphagia History of breast cancer TECHNIQUE: Ultrasound of the thyroid gland. Grayscale and color Doppler images. Images were obtained and stored in a permanent archive. COMPARISON: Same day head/neck ultrasound. RESULT: The thyroid gland is normal size. Right Lobe: 4.2 cm x 1.3 cm x 1.8 cm Left Lobe: 3.6 cm x 1.2 cm x 1.1 cm Isthmus: 0.2 cm Parenchyma: The parenchyma is homogeneous. Thyroid nodules: None - IMPRESSION IMPRESSION: No abnormality is identified. Tourist Adviser: JAEL Transcribe Date/Time: Dec 18 2024 5:57A Dictated by : DANNY BLAND MD This examination was interpreted and the report reviewed and electronically signed by: DANNY BLAND MD on Dec 18 2024 6:00AM [facility] Wound Cultureon 12-18-2024 WC UNK UNK left shoulder synovial fluid collected in [place] Ampicillin can be used for Beta-Lactamase negative isolates. Trimeth/Sulfa, Chloramphenicol, Cefotaxime, Ciprofloxacin, Amoxicillin/Clavulanic Acid, and Oral 2nd/3rd Generation Cephalosporins are effective against both Beta-Lactamase positive and Beta-Lactamase negative isolates. Haemophilus influenzae Amount Growth 1+ Beta Lactamase-Reportable Negative Normal [facility] Comment on above: Performed By: #### L 500.2500, L100.0100 #### [facility] [address] [facility] [place], [place], [id number] WC UNK UNK LEFT WRIST FLUID collected in [place] Ampicillin can be used for Beta-Lactamase negative isolates. Trimeth/Sulfa, Chloramphenicol, Cefotaxime, Ciprofloxacin, Amoxicillin/Clavulanic Acid, and Oral 2nd/3rd Generation Cephalosporins are effective against both Beta-Lactamase positive and Beta-Lactamase negative isolates. Haemophilus influenzae Amount Growth Rare Beta Lactamase-Reportable Negative Normal [facility] Comment on above: Performed By: #### L 500.2500, L100.0100 #### [facility] [address] [facility] [place], [place], [address] Bacteria identified Anaer cx Nom (Unsp spec)Ordered By: Gabriel Evangelista on 12-17-2024 Anaerobic Culture No growth in 5 days. [facility] Body Fluid Culton 12-17-2024 BFC #1 Ampicillin can be used for Beta-Lactamase negative isolates. Trimeth/Sulfa, Chloramphenicol, Cefotaxime, Ciprofloxacin, Amoxicillin/Clavulanic Acid, and Oral 2nd/3rd Generation Cephalosporins are effective against both Beta-Lactamase positive and Beta-Lactamase negative isolates. Body Fluid Cult Copy of report sent to Infection Control Printer [id number] 12/17/24 1523 BLUCAS. Haemophilus influenzae Amount Growth 3+ Beta Lactamase-Reportable Negative Normal [facility] Comment on above: Performed By: #### L 200.0200, L200.4175 #### [facility] [address] [place], [address] Culture, Blood (WB)on 2024 CUB Blood cultures x2, from two different sites GRAM STAIN= GRAM NEGATIVE RODS Culture, Blood (WB) RESULTS CALLED TO [facility] 12/16/24 1014 Ambar Hanks. REPORT READ BACK BY SAME. Culture, Blood (WB) #1 Ampicillin can be used for Beta-Lactamase negative isolates. Trimeth/Sulfa, Chloramphenicol, Cefotaxime, Ciprofloxacin, Amoxicillin/Clavulanic Acid, and Oral 2nd/3rd Generation Cephalosporins are effective against both Beta-Lactamase positive and Beta-Lactamase negative isolates. Culture, Blood (WB) Copy of report sent to Infection Control Printer [id number] 12/17/24 1520 BLUCAS. Haemophilus influenzae Amount Growth Growth Beta Lactamase-Reportable Negative Normal [facility] Comment on above: Performed By: #### L 500.2500, L100.0100 #### [facility] [address] [place], [address] Fungus identified Cx Nom (Un sp spec)Ordered By: Gabriel Evangelista on 12-17-2024 Fungal Culture [facility] Fungus identified Fungus sta in Nom (Unsp spec)Ordered By: Gabriel Evangelista on 12-17-2024 Fungal Smear [facility] Gram Stainon 12-17-2024 GS VANCO Centrifuged Specimen? Culture performed on centrifuged specimen Gram Stain No organisms seen Rare White Blood Cells Normal [facility] Comment on above: Performed By: #### L 500.2500, L100.0100 #### [facility] [address] [place], [address] Gram stainOrdered By: Eulalia Evangelista on 12-17-2024 Microscopic observation Gram stain Nom (Unsp spec) [facility] MR/POSTOP.ANEon 12-17-2024 MR/POSTOP.ANE [facility] Medical Records Department [address] [place] [address] Anesthesia Postop Eval I 12/17/241102 MR#: [id number] Acct: [id number] Name: BECKY HUFFMAN Rep #: [id number] : 1970 54 From: Ignacio Lisa MD PCP: ELIZABETH Garcia Status:ADM IN Y Race: C Location: [place] [address] Anesthesia: Postop Eval I Current Vital Signs Temperature: 97.8 F Pulse Rate: 100 Blood Pressure: 127/77 Respiratory Rate: 16 Pulse Ox: 93 Assessment Airway patent: Yes Spontaneous unlabored respirations: Yes nausea: No Vomiting: No Anesthesia Complication: No Fluid Hydration Crystalloid volume administer (ml): 1,500 Total IV fluid infused: 1,500 Progress Note Anesthesia document: Postop Eval 1 completed: Yes 12/17/241104 Date Ignacio Lisa MD Cosigner Signature: Date CC: Signed Normal [facility] MR/[id number] 12-17-2024 MR/POSTOPAN2 [facility] Medical Records Department [address] [place] [address] Anesthesia Postop Eval II 12/17/241104 MR#: [id number] Acct: [id number] Name: BECKY HUFFMAN Rep #: [id number] : 1970 54 From: Ignacio Lisa MD PCP: ELIZABETH Garcia Status:ADM IN Y Race: C Location: PR3 [id number] Anesthesia Postop Eval I Sum Postop Eval Completion status Anesthesia document: Postop Eval 1 completed: Yes Anesthesia Postop Eval I Summary Anesthesia Postop Eval I Summary: Anesthesia Postop Eval I: Assessment Summary Airway patent Yes 12/17/24 11:04 Spontaneous unlabored Yes 12/17/24 11:04 respirations Mental status Awake,Calm 12/16/24 18:43 AKDAY nausea No 12/17/24 11:04 Vomiting No 12/17/24 11:04 Anesthesia Postop Eval I: Fluid Summary Crystalloid volume administer 1,500 12/17/24 11:04 (ml) Colloids volume administered ( ml) Blood Product volume administered (ml) Total IV fluid infused 1,500 12/17/24 11:04 Anesthesia Postop Eval I: Summary Notes Anesthesia Complication No 12/17/24 11:04 Anesthesia Complication Comment: Post-operative progress note Anesthesia: Postop Eval II Evaluation Mental status: Asleep Pain Level: 0 nausea: No Vomiting: No 12/17/24 1106 Date Ignacio Lisa MD Cosigner Signature: Date CC: Signed Normal [facility] Operative Reporton Operative Report [facility] Medical Records Department [address] [place] [address] Operative Report 12/17/24 1112 MR#: [id number] Acct: [id number] Name: BECKY HUFFMAN Rep #: [id number] : 1970 54 From: Gabriel Evangelista DO PCP: ELIZABETH Garcia Status:ADM IN [place] [facility] [place] [id number] Operative Report (Standard) Operative Information Date of Procedure: 12/17/24 Pre-Operative Diagnosis: 1. Left shoulder septic arthritis 2. Right shoulder pain concern for septic arthritis Post-Operative Diagnosis: 1. Left shoulder septic arthritis 2. Right shoulder pain Surgery/Procedure Performed: 1. Left shoulder arthroscopic irrigation and debridement of synovitis, capsular tissue, subacromial bursa and labral fraying evidence specialist: Yes Osteopathic Medicine Teacher: Viridiana Conteh Tasks completed by public health assistant: Opening closing and Retracting Additional fish hatchery assistant?: No Type of Anesthesia: General RN Documented Start/Stop Times: Operation Date: 12/17/24 09:50 Case Time Anesthesia Start 12/17/24 09:40 Into Room 12/17/24 09:40 Procedure Start 12/17/24 10:30 Procedure End 12/17/24 10:52 Anesthesia End 12/17/24 11:02 Out of Room 12/17/24 11:02 Into Recovery 12/17/24 11:03 Procedure Start Time: 10:30 Procedure Stop Time: 10:52 Select all DRAINS/GRAFTS/IMPLANTS that apply: None Estimated Blood Loss: 10 cc Specimen collected: Yes Description of specimen(s) removed: Right shoulder synovial fluid aspirate Description of surgery: Patient was identified in the preoperative holding area by name, medical record number, and date of . The operative extremity was marked. Patient was then brought to the operative suite. She was positioned supine on a standard operating table. General anesthesia was induced and endotracheal tube placed. We then performed a timeout confirming the side, site, and operation to be performed. No concerns were voiced and we elected to proceed with surgery. Patient was receiving scheduled vancomycin and Zosyn neither of which she was due for in the operative suite. I then palpated the anterior shoulder and under no touch sterile technique, aspiration was performed with an 18-gauge needle the right glenohumeral joint and subsequently the subacromial space. Minimal blood was aspirated. I did send this for culture. Band-Aid was applied. Patient was then positioned in a lateral decubitus position with the left side up. Axillary roll was placed. All bony prominences were well-padded. We spun the bed 45 degrees. She was held in place with a beanbag. Left upper extremity was then prepped and draped in a normal, sterile orthopedic fashion. 10 pounds of traction was applied to left arm through an arthroscopic traction tower. Standard posterior portal was then established with 11 blade scalpel. Blunt tipped trocar was used to enter the glenohumeral joint. Femi purulent effusion was noted consistent with septic arthritis. Arthroscope was introduced. The joint was filled with normal saline with epinephrine. Diagnostic arthroscopy elevated extensive synovitis, labral fraying, capsulitis. Anterior interval portal was established. Shaver was used to debride synovitis, capsular tissue and degenerative labral fraying. Cartilage appeared pristine. Minimal fraying of the articular sided supraspinatus was noted. Biceps tendon was pristine. Approximately 5 L normal saline with epinephrine was then washed through the glenohumeral joint. At this time I withdrew the arthroscope and reentered the shoulder and subacromial space. Lateral portal was established. Bursitis was noted and debrided with arthroscopic shaver. Bursal sided rotator cuff appeared pristine. No obvious purulence was noted in the subacromial space. Approximately 1 L was lavaged through the subacromial space. Arthroscopic instruments were then removed. Portal sites were closed in interrupted [id number] fashion. Field and intra-articular block was administered with 30 cc total half percent bupivacaine plain. Bulky sterile compression dressing was applied. The wrist was redressed with a soft dressing. She was placed in a simple sling. She was awakened from anesthesia and extubated the operative suite. She was transferred to her gurney and subsequently to PACU in stable condition. Postoperative plan: Sling for comfort to the left arm including the wrist and shoulder. Okay to remove as tolerated. Ice to the left wrist and shoulder as needed. Follow cultures of the right shoulder. Continue IV antibiotics. We will start prophylactic heparin this evening for DVT prophylaxis. Continue to follow clinically regarding the right shoulder. I will provisionally make the patient n.p.o. after midnight tonight as I do have considerable concern for a right shoulder septic arthritis however multiple dry aspirates do give me pause regarding surgical I D. Surgical Finding (more content not included)... Normal [facility] Phosphoruson 12-17-2024 Phosphate [Mass/Vol] 2.4 mg/dL Low 2.7-4.5 [facility] Comment on above: Performed By: #### L 500.2500, L100.0100 #### [facility] [address] [place], [address] Routine wound cultureOrdered By: Gabriel Evangelista on 12-17-2024 Wound Culture Bacillus sp., not anthracis Abnormal [facility] Serum phosphorus measurement Ordered By: Mauricio Sylvester on 12-17-2024 Phosphorus Level 2.4 mg/dL Low 2.7-4.5 [facility] Vancomycin trough [Mass/Vol] Ordered By: Mauricio Sylvester on 12-17-2024 Vancomycin Level Trough 6.0 ug/mL 5.0-15.0 [facility] Comment on above: Recommended goal tro ugh ranges are generally 10-15 mcg/ml for less severe/complicated infections such as cellulitis or UTI and 15-20 mcg/ml for more severe/complicated infections such as bacteremia/sepsis, osteomyelitis, pneumonia or meningitis. Goal trough ranges should take into account indication, patient-specific factors and organism JANE.VANCOMYCIN STANDARED DRUG THERAPY TROUGH LEVEL: 5.0 - 15.0 mg/L VANCOMYCIN HIGH INTENSITY THERAPY TROUGH LEVEL: 15.0 - 20.0 mg/L High Intensity therapy recommended for serious lifethreatening infections include:- Swfwgsutvm-Ndkbziyjfxgy-Kpgtvdtrz (Ventilator/Healtcare Associated)-Sepsis PLEASE CONTACT PHARMACY SERVICES (#[id number]) FOR INTERPRETATIONOF RESULTS. Vancomycin, Trough Levelon 0 12-17-2024 VANCO, TROUGH 6.0 ug/mL Normal 5.0-15.0 [facility] Comment on above: Order Comment: Comme nts: Trough to be drawn 30 mins prior to scheduled [id number] Result Comment: Tristin mmended goal trough ranges are generally 10-15 mcg/ml for less severe/complicated infections such as cellulitis or UTI and 15-20 mcg/ml for more severe/complicated infections such as bacteremia/sepsis, osteomyelitis, pneumonia or meningitis. Goal trough ranges should take into account indication, patient-specific factors and organism JANE. VANCOMYCIN STANDARED DRUG THERAPY TROUGH LEVEL: 5.0 - 15.0 mg/L VANCOMYCIN HIGH INTENSITY THERAPY TROUGH LEVEL: 15.0 - 20.0 mg/L High Intensity therapy recommended for serious life threatening infections include: - Meningitis -Endocarditis -Pneumonia (Ventilator/Healtcare Associated) -Sepsis PLEASE CONTACT PHARMACY SERVICES (#[id number]) FOR INTERPRETATION OF RESULTS. Performed By: #### L 500.2500, L100.0100 #### [facility] [address] [place], [address] 12 Lead EKGon 12-16-2024 12 Lead EKG [facility] Cardiovascular Services [address] [place] [address] 12 Lead EKG 12/16/24 0533 MR#: [id number] Acct: [id number] Name: BECKY HUFFMAN Rep #: [id number] : 1970 54 From: Valeriano Vidal MD Attending Dr: Dr. Gabriel Hernandez MD Status : ADM IN Ordering Dr: Patrice Choudhary MD Date: 12/16/24 [place] [facility] [place]: F C Admitted: 12/15/24 Test Reason : AM EKG Blood Pressure : */* mmHG Vent. Rate : 111 BPM Atrial Rate : 111 BPM P-R Int : 112 ms QRS Dur : 82 ms QT Int : 296 ms P-R-T Axes : 57 18 32 degrees QTcB Int : 402 ms Sinus tachycardia Possible Left atrial enlargement Borderline ECG When compared with ECG of 23-Feb-2020 15:15, No significant change was found Confirmed by Valeriano Vidal ([id number]), content editor JERI ELLISON ([id number]) on 12/16/2024 9:44:24 AM Referred By: Ajith Chavira Confirmed By: Valeriano Vidal 12/16/24 0944 Date Valeriano Vidal MD CC: ELIZABETH Ireland; Dr. Patrice Choudhary MD; Dr. Gabriel Hernandez MD; Dr. Ajith Chavira MD Signed Normal [facility] Bacteria identified Anaer cx Nom (Unsp spec)Ordered By: Gabriel Evangelista on 12-16-2024 Anaerobic Culture No growth in 5 days. [facility] Bilirubin, totalOrdered By: Mauricio Sylvester on 12-16-2024 Bilirubin [Mass/Vol] 1.63 mg/dL High 0.00-1.30 [facility] Body Fluid Cell Count+Diffon 12-16-2024 APPEAR/BF Normal [facility] Comment on above: Order Comment: Comme nts: Left wrist synovial fluid Result Comment: This specimen has been REJECTED due to Laboratory criteria: Clotted. CHRISTOPHER SALAMANCA has been notified of cancellation. 12/16/24 0808 Anupam R Stoner Performed By: #### L 200.0200, L200.4175 #### [facility] [address] [place], [address] BFM 2ND SPEC Normal [facility] Comment on above: Order Comment: Comme nts: Left wrist synovial fluid Result Comment: This specimen has been REJECTED due to Laboratory criteria: Clotted. CHRISTOPHER SALAMANCA has been notified of cancellation. 12/16/24 0808 Anupam R Stoner Performed By: #### L 200.0200, L200.4175 #### [facility] [address] [place], [address] BFTC# Normal [facility] Comment on above: Order Comment: Comme nts: Left wrist synovial fluid Result Comment: This specimen has been REJECTED due to Laboratory criteria: Clotted. CHRISTOPHER SALAMANCA has been notified of cancellation. 12/16/24 0808 Anupam R Stoner Performed By: #### L 200.0200, L200.4175 #### [facility] [address] [place], [address] BODY FLUID QC Normal [facility] Comment on above: Order Comment: Comme nts: Left wrist synovial fluid Result Comment: This specimen has been REJECTED due to Laboratory criteria: Clotted. CHRISTOPHER SALAMANCA has been notified of cancellation. 12/16/24 0808 Anupam R Stoner Performed By: #### L 200.0200, L200.4175 #### [facility] [address] [place], [address] COLOR/BF Normal [facility] Comment on above: Order Comment: Commflory nts: Left wrist synovial fluid Result Comment: This specimen has been REJECTED due to Laboratory criteria: Clotted. CHRISTOPHER SALAMANCA has been notified of cancellation. 12/16/24 0808 Anupam Bragar Performed By: #### L 200.0200, L200.4175 #### [facility] [address] [place], [address] PATH COMM/BF Normal [facility] Comment on above: Order Comment: Nikolas nts: Left wrist synovial fluid Result Comment: This specimen has been REJECTED due to Laboratory criteria: Clotted. CHRISTOPHER SALAMANCA has been notified of cancellation. 12/16/24 0808 Anupam Bragar Performed By: #### L 200.0200, L200.4175 #### [facility] [address] [place], [address] qBKG ANALYZ OK? Normal W/IN LIMITS [facility] Comment on above: Order Comment: Commflory nts: Left wrist synovial fluid Result Comment: This specimen has been REJECTED due to Laboratory criteria: Clotted. CHRISTOPHER SALAMANCA has been notified of cancellation. 12/16/24 0808 Anupam Bragar Performed By: #### L 200.0200, L200.4175 #### [facility] [address] [place], [address] RBC/BF [facility] Comment on above: Order Comment: Commflory nts: Left wrist synovial fluid Result Comment: This specimen has been REJECTED due to Laboratory criteria: Clotted. CHRISTOPHER SALAMANCA has been notified of cancellation. 12/16/24 0808 Anupam Bragar Performed By: #### L 200.0200, L200.4175 #### [facility] [address] [place], [address] SOURCE/BF [facility] Comment on above: Order Comment: Nikolas nts: Left wrist synovial fluid Result Comment: This specimen has been REJECTED due to Laboratory criteria: Clotted. CHRISTOPHER SALAMANCA has been notified of cancellation. 12/16/24 0808 Anupam Bragar Performed By: #### L 200.0200, L200.4175 #### [facility] [address] [place], [place], [address] WBC/BF Normal [facility] Comment on above: Order Comment: Comme nts: Left wrist synovial fluid Result Comment: This specimen has been REJECTED due to Laboratory criteria: Clotted. CHRISTOPHER SALAMANCA has been notified of cancellation. 12/16/24 0808 Anupam Bragar Performed By: #### L 200.0200, L200.4175 #### [facility] [address] [place], [address] CBC W Auto Differential pane l (Bld)on 12-16-2024 Basophils (Bld) [#/Vol] 0 10*3/uL [facility] C [facility] Basophils/100 WBC (Bld) 0 % C [facility] Differential cell count method Nom (Bld) Manual [facility] Eosinophils (Bld) [#/Vol] 0 10*3/uL [facility] Eosinophils/100 WBC (Bld) 0 % [facility] Erythrocyte distribution width (RBC) [Ratio] 12.7 % 11.5 - 15.0 % [facility] Hematocrit (Bld) [Volume fraction] 39.7 % 36.0 - 46.0 % [facility] Hemoglobin (Bld) [Mass/Vol] 12.9 g/dL 11.5 - 15.5 g/dL [facility] Interpretation and review of laboratory results Abnormal [facility] Lymphocytes (Bld) [#/Vol] 1.77 10*3/uL [facility] Lymphocytes/100 WBC (Bld) 12.6 % [facility] MCH (RBC) [Entitic mass] 31.4 pg 26.0 - 34.0 pg [facility] MCHC (RBC) [Mass/Vol] 32.5 g/dL 30.5 - 36.0 g/dL [facility] MCV (RBC) [Entitic vol] 96.6 fL 80.0 - 100.0 fL [facility] Monocytes (Bld) [#/Vol] 0.83 10*3/uL [facility] Monocytes/100 WBC (Bld) 5.9 % C [facility] Neutrophils (Bld) [#/Vol] 11.43 10*3/uL High [facility] Neutrophils/100 WBC (Bld) 81.5 % [facility] Nucleated RBC (Bld) [#/Vol] NINF [facility] Nucleated RBC/100 WBC (Bld) [Ratio] 0 % /100 WBC [facility] Ovalocytes LM Ql (Bld) Few Cl [facility] Platelet mean volume (Bld) [Entitic vol] 11.4 fL 9.0 - 12.7 fL [facility] Platelets (Bld) [#/Vol] 190 10*3/uL [facility] Platelets Estimate (Bld) [#/Vol] Adequate [facility] Polychromasia LM Ql (Bld) Slight [facility] RBC (Bld) [#/Vol] 4.11 10*6/uL 3.90 - 5.2 0 m/uL [facility] Red Cell Morph Reviewed: see result s of individual morphologies [facility] WBC (Bld) [#/Vol] 14.03 10*3/uL High [facility] This is an appended report. These results have been appended to a previously verified report. [facility] CBC W/Diff, Automatedon 11-20 Absolute Lymph 0.98 X10 3/uL Normal 0.83-4.51 [facility] Comment on above: Performed By: #### L 500.2500, L100.0100 #### [facility] [address] [place], [address] Absolute Neut 8.4 X10 3/uL High 2.0-7.7 [facility] Comment on above: Performed By: #### L 500.2500, L100.0100 #### [facility] [address] [place], [address] Basophils/100 WBC (Bld) 0.2 % Normal 0-1 [facility] Comment on above: Performed By: #### L 500.2500, L100.0100 #### [facility] [address] [place], [address] Eosinophils/100 WBC (Bld) 0.0 % Normal 0-5 [facility] Comment on above: Performed By: #### L 500.2500, L100.0100 #### [facility] [address] [place], [address] Erythrocyte distribution width (RBC) [Ratio] 12.7 % Normal 11.6-14.6 [facility] Comment on above: Performed By: #### L 500.2500, L100.0100 #### [facility] [address] [place], [address] Hematocrit (Bld) [Volume fraction] 35.7 % Low 37-47 [facility] Comment on above: Performed By: #### L 500.2500, L100.0100 #### [facility] [address] [place], [address] Hemoglobin (Bld) [Mass/Vol] 11.9 g/dL Low 12.0-15.0 [facility] Comment on above: Performed By: #### L 500.2500, L100.0100 #### [facility] [address] [place], [address] IG% 0.900 Normal 0.0-0.9 [facility] Comment on above: Result Comment: IG% - Immature Granulocytes (promyelocytes, myelocytes and metamyelocytes) > 1% indicates that a LEFT SHIFT is Present. Performed By: #### L 500.2500, L100.0100 #### [facility] [address] [place], [address] Lymphocytes/100 WBC (Bld) 9.7 % Low 19-41 [facility] Comment on above: Performed By: #### L 500.2500, L100.0100 #### [facility] [address] [place], [address] MCH (RBC) [Entitic mass] 30.9 pg Normal 27.0-32.0 [facility] Comment on above: Performed By: #### L 500.2500, L100.0100 #### [facility] [address] [place], [address] MCHC (RBC) [Mass/Vol] 33.3 g/dL Normal 32-36 [facility] Comment on above: Performed By: #### L 500.2500, L100.0100 #### [facility] [address] [place], [address] MCV (RBC) [Entitic vol] 92.7 fL Normal 81-99 [facility] Comment on above: Performed By: #### L 500.2500, L100.0100 #### [facility] [address] [place], [address] Monocytes/100 WBC (Bld) 5.6 % Normal 0-10 [facility] Comment on above: Performed By: #### L 500.2500, L100.0100 #### [facility] [address] [place], [address] Neutrophils/100 WBC (Bld) 83.6 % High 47-70 [facility] Comment on above: Performed By: #### L 500.2500, L100.0100 #### [facility] [address] [place], [address] Nucleated RBC (Bld) [#/Vol] 0 10*3/uL Normal 0-5 [facility] Comment on above: Performed By: #### L 500.2500, L100.0100 #### [facility] [address] [place], [address] Platelet mean volume (Bld) [Entitic vol] 11.2 fL Normal 6.2-12.0 [facility] Comment on above: Performed By: #### L 500.2500, L100.0100 #### [facility] [address] [place], [address] Platelets (Bld) [#/Vol] 177 10*3/uL Normal 150-450 [facility] Comment on above: Performed By: #### L 500.2500, L100.0100 #### [facility] [address] [place], [address] RBC (Bld) [#/Vol] 3.85 10*6/uL Low 4.2-5.4 [facility] Comment on above: Performed By: #### L 500.2500, L100.0100 #### [facility] [address] [place], [address] RDW SD 43.2 fl Normal 35.1-43.9 [facility] Comment on above: Performed By: #### L 500.2500, L100.0100 #### [facility] [address] [place], [address] WBC (Bld) [#/Vol] 10.1 10*3/uL Normal 4.4-11.0 [facility] Comment on above: Performed By: #### L 500.2500, L100.0100 #### [facility] [address] [place], [address] Comprehensive Metabolic Prof ilon 12-16-2024 Albumin [Mass/Vol] 2.9 g/dL Low 3.5-5.0 [facility] Comment on above: Performed By: #### L 500.2500, L100.0100 #### [facility] [address] [place], [address] Albumin/Globulin [Mass ratio] 0.8 {ratio} Low 0.9-2.4 [facility] Comment on above: Performed By: #### L 500.2500, L100.0100 #### [facility] [address] [place], [address] ALK PHOS 69 U/L Normal 35-104 [facility] Comment on above: Performed By: #### L 500.2500, L100.0100 #### [facility] [address] [place], [address] ALT [Catalytic activity/Vol] 52 U/L High <=34 [facility] Comment on above: Performed By: #### L 500.2500, L100.0100 #### [facility] [address] [place], [address] Anion gap [Moles/Vol] 15 mmol/L Normal 5-15 [facility] Comment on above: Performed By: #### L 500.2500, L100.0100 #### [facility] [address] [place], [address] AST [Catalytic activity/Vol] 86 U/L High <=31 [facility] Comment on above: Result Comment: Hemo lysis present, Results??could be affected. ?? Performed By: #### L 500.2500, L100.0100 #### [facility] [address] [place], [address] Bilirubin [Mass/Vol] 1.63 mg/dL High 0.00-1.30 [facility] Comment on above: Performed By: #### L 500.2500, L100.0100 #### [facility] [address] [place], [address] BUN/CRE 36.5 RATIO High 10-20 [facility] Comment on above: Performed By: #### L 500.2500, L100.0100 #### [facility] [address] [place], [address] Calcium [Mass/Vol] 8.9 mg/dL Normal 7.6-11.0 [facility] Comment on above: Performed By: #### L 500.2500, L100.0100 #### [facility] [address] [place], [address] Chloride [Moles/Vol] 98 mmol/L Normal 96-108 [facility] Comment on above: Performed By: #### L 500.2500, L100.0100 #### [facility] [address] [place], [address] CO2 [Moles/Vol] 19.5 mmol/L Low 22.0-29.0 [facility] Comment on above: Performed By: #### L 500.2500, L100.0100 #### [facility] [address] [place], [address] Creatinine [Mass/Vol] 0.79 mg/dL Normal 0.70-1.20 [facility] Comment on above: Performed By: #### L 500.2500, L100.0100 #### [facility] [address] [place], [address] ECRCL 74.44 ml/min Normal [facility] Comment on above: Performed By: #### L 500.2500, L100.0100 #### [facility] [address] [place], [address] GFR/1.73 sq M.predicted among non-blacks MDRD (S/P/Bld) [Vol rate/Area] 87 mL/min/{1.73_m2} Normal >60 [facility] Comment on above: Result Comment: mL/m in/1.73m2 CKD-EPI Creatinine Equation (2020) Performed By: #### L 500.2500, L100.0100 #### [facility] [address] [place], [address] Globulin (S) [Mass/Vol] 3.5 g/dL Normal 2.2-4.2 [facility] Comment on above: Performed By: #### L 500.2500, L100.0100 #### [facility] [address] [place], [address] Glucose [Mass/Vol] 103 mg/dL High 70-99 [facility] Comment on above: Performed By: #### L 500.2500, L100.0100 #### [facility] [address] [place], [address] Potassium [Moles/Vol] 4.2 mmol/L Normal 3.3-5.1 [facility] Comment on above: Result Comment: Hemo lysis present, Results??could be affected. ?? Performed By: #### L 500.2500, L100.0100 #### [facility] [address] [place], [address] Sodium [Moles/Vol] 132 mmol/L Low 133-145 [facility] Comment on above: Performed By: #### L 500.2500, L100.0100 #### [facility] [address] [place], [address] T PROT 6.4 g/dL Normal 5.9-8.4 [facility] Comment on above: Performed By: #### L 500.2500, L100.0100 #### [facility] [address] [place], [address] Urea nitrogen [Mass/Vol] 29 mg/dL High 4-19 [facility] Comment on above: Performed By: #### L 500.2500, L100.0100 #### [facility] [address] [place], [address] Consultation - Orthopedicson 12-16-2024 Consultation - Orthopedics [facility] Medical Records Department [address] [place] [address] Consultation - Orthopedics 12/16/24 0659 MR#: [id number] Acct: [id number] Name: BECKY HUFFMAN TRAY Rep #: [id number] : 1970 54 From: Gabriel Evangelista DO PCP: ELIZABETH Garcia Status:ADM IN [place] [facility] [place] HPI Consult Data Date of Consult: 12/16/24 HPI Narrative Reason for Consultation: Left wrist concern for septic arthritis HPI Narrative: BECKY HUFFMAN, is a 54 F who presented last evening to [facility] emergency department with Left wrist pain starting 12/14/2024. She reports being diagnosed with influenza earlier this week. She had a reported upper respiratory symptoms 5 days ago and was started on prednisone 40 mg/day by an urgent care provider. She states her upper respiratory symptoms improved dramatically after 48 hours but began to notice severe left wrist pain that gradually worsened. She reports similar flareup pain in her wrist but not to this degree in the remote past. She does have history of rheumatoid arthritis for which she is regularly on leflunomide, Cimzia, and hydroxychloroquine. She reports has been several years since she has had a flareup. She reports fevers ranging from 101-103 which stopped approximately 48 hours ago. Patient was seen in the emergency department last evening. Emergency room physician performed a left wrist arthrocentesis yielding approximately 1 cc of femi purulent fluid. This was sent to the lab for fluid analysis. Patient was started on ceftriaxone and vancomycin and admitted under the service of the hospitalist last evening. Patient also reports to a lesser degree left shoulder pain, anterior lateral and even lesser degree right shoulder pain. She does report noticing a red rash over the front of her left shoulder but denies any rash of the left wrist or right shoulder. She denies any other joint pain at this time. [facility] Medical History BRCA gene positive Breast cancer metastasized to axillary lymph node Breast cancer, right breast Rheumatoid arthritis Home Medications ???Medication ???Instructions ???Recorded ???Last Taken ???Type multivitamin 1 tab PO DAILY general health 11/19 11/06 Unknown History anastrozole 1 mg tablet 1 mg PO DAILY arthritis 10/13/19 U nknown History ferrous sulfate 325 mg (65 mg 325 mg PO DAILY anemia 10/13/19 Un known History iron) tablet leflunomide 10 mg tablet (Arava) 20 mg PO DAILY arthritis 12/19/19 Unknown History calcium 500 mg (as 1 ea PO BID def. 02/21/20 Unknown History carbonate)-vitamin D3 15 mcg (600 unit) tablet certolizumab pegol 400 mg/2 mL 200 mg subcut Q2W arthritis Unknown History (200 mg/mL x2) subcutaneous syringe kit (Cimzia) hydroxychloroquine 200 mg tablet 200 mg PO BID arthritis 07/09/21 U nknown History hydrocortisone 2.5 % topical 1 applic topical BID PRN perineal 12/15/24 Unknown History ointment area leflunomide 20 mg tablet 20 mg PO DAILY arthritis 12/15/24 Unknown History prednisone 10 mg tablet 20 mg PO BID swollen neck 12/15/24 Unknown History prednisone 20 mg tablet 20 mg PO BID swollen neck 12/15/24 Unknown History Allergy/AdvReac Type Severity Reaction Status Date / Time No Known Allergies Allergy Verified 12/15/24 19:45 Family History Son Diabetes Grandfather Heart disease Mother Cancer possible throat cancer (Went through radiation) Father Cancer lung Surgical History S/P bilateral salpingo-oophorectomy S/P breast reconstruction S/P bilateral mastectomy Status post right breast lumpectomy ( 12/2018) History of tonsillectomy Social History household members: none housing: apartment current occupational status: employed Smoking Status: Never smoker alcohol intake: current alcohol intake frequency: holidays/special occasions only substance use type: does not use caffeine: Yes what type of physical activity do you participate in: walking and aerobics frequency: 5-6 times per week seatbelt use: always do you feel safe at home: Yes additional social history: Patient works at [employer] home ROS ROS Narrative 12 point review of systems obtained, negative unless otherwise noted in HPI. Vital Signs Vital Signs Vital Signs: 12/15/24 19:45 12/15/24 20:00 12/15/24 22:32 Temperature 97.2 F L 97.2 F L Temperature Source Temporal Pulse Rate 102 H 102 H Respiratory Rate 17 17 Respiratory Effort Normal Non-Labored Respiratory Depth Respiratory Pattern Normal Blood Pressure 96/70 96/70 Bloo (more content not included)... Normal [facility] Crystals, Body Fluidon 12-16 CRYSTALS/BF Normal [facility] Comment on above: Order Comment: Comme nts: Left wrist synovial fluid Result Comment: This specimen has been REJECTED due to Laboratory criteria: Clotted. CHRISTOPHER SALAMANCA has been notified of cancellation. 12/16/24 0808 Anupam Victoria Performed By: #### L 200.0200, L200.4175 #### [facility] [address] [place], [address] ESR Westergren method (Bld) [Velocity]on 12-16-2024 ESR (Bld) [Velocity] 22 mm/h High [facility] Interpretation and review of laboratory results Abnormal [facility] Gram Stainon 12-16-2024 GS UNK UNK left shoulder synovial fluid collected in OR Gram Stain 2+ Gram variable sunitha 2+ White Blood Cells Normal [facility] Comment on above: Performed By: #### L 500.2500, L100.0100 #### [facility] [address] [place], [address] GS UNK UNK LEFT WRIST FLUID collected in OR Gram Stain 2+ Red Blood Cells Rare White Blood Cells No organisms seen Normal [facility] Comment on above: Performed By: #### L 500.2500, L100.0100 #### [facility] [address] [place], [address] GS Centrifuged Specimen ? Culture performed on centrifuged specimen Gram Stain 3+ Gram negative rods 4+ White Blood Cells Normal [facility] Comment on above: Performed By: #### L 200.0200, L200.4175 #### [facility] [address] [place], [address] Gram stainOrdered By: Eulalia Evangelista on 12-16-2024 Microscopic observation Gram stain Nom (Unsp spec) [facility] - Chemistry and C hemistry - challengeOrdered By: Mauricio Sylvester on 12-16-2024 AST [Catalytic activity/Vol] 86 U/L High <32 [facility] Comment on above: Hemolysis present, R esults could be affected. MR/POSTOP.ANEon 12-16-2024 MR/POSTOP.ANE [facility] Medical Records Department [address] [place] [address] Anesthesia Postop Eval I 12/16/24 1604 MR#: [id number] Acct: [id number] Name: BECKY HUFFMAN Rep #: [id number] : 1970 54 From: Luca Farmer PCP: ROLANDO GarciaC Status:ADM IN Y Race: C Location: [place] [address] Anesthesia: Postop Eval I Current Vital Signs Temperature: 99 F Pulse Rate: 110 Blood Pressure: 120/67 Respiratory Rate: 18 Pulse Ox: 99 Oxygen Delivery Method: Room Air Assessment Airway patent: Yes Spontaneous unlabored respirations: Yes Mental status: Awake and Calm nausea: No Vomiting: No Anesthesia Complication: No Fluid Hydration Crystalloid volume administer (ml): 800 Total IV fluid infused: 800 Progress Note Anesthesia document: Postop Eval 1 completed: Yes 12/16/24 1605 Date Luca Roman Signature: Date CC: Signed Normal [facility] [id number] 12-16-2024 MR/POSTOPAN2 [facility] Medical Records Department [address] [place] [address] Anesthesia Postop Eval II 12/16/24 1843 MR#: [id number] Acct: [id number] Name: BECKY HUFFMAN Rep #: [id number] : 1970 54 From: Patrice Choudhary MD PCP: ELIZABETH Garcia Status:ADM IN Y Race: C Location: [place] [address] Anesthesia Postop Eval I Sum Postop Eval Completion status Anesthesia document: Postop Eval 1 completed: Yes Anesthesia Postop Eval I Summary Anesthesia Postop Eval I Summary: Anesthesia Postop Eval I: Assessment Summary Airway patent Yes 12/16/24 16:05 AGENCY SALES DIRECTOR.MDOT Spontaneous unlabored Yes 12/16/24 16:05 AGENCY SALES DIRECTOR.MDOT respirations Mental status Awake,Calm 12/16/24 16:05 AGENCY SALES DIRECTOR.MDOT nausea No 12/16/24 16:05 AGENCY SALES DIRECTOR.MDOT Vomiting No 12/16/24 16:05 AGENCY SALES DIRECTOR.MDOT Anesthesia Postop Eval I: Fluid Summary Crystalloid volume administer 800 12/16/24 16:05 AGENCY SALES DIRECTOR.MDOT (ml) Colloids volume administered ( ml) Blood Product volume administered (ml) Total IV fluid infused 800 12/16/24 16:05 AGENCY SALES DIRECTOR.MDOT Anesthesia Postop Eval I: Summary Notes Anesthesia Complication No 12/16/24 16:05 AGENCY SALES DIRECTOR.MDOT Anesthesia Complication Comment: Post-operative progress note Anesthesia: Postop Eval II Evaluation Mental status: Awake and Calm Pain Level: 1 nausea: No Vomiting: No Complications Anesthesia Complication: No 12/16/24 1843 Date Patrice Roman Signature: Date CC: Signed Normal [facility] Operative Reporton 5 Operative Report [facility] Medical Records Department [address] [place] [address] Operative Report 12/16/24 1629 MR#: [id number] Acct: [id number] Name: BECKY HUFFMAN Rep #: [id number] : 1970 54 From: Gabriel Evangelista DO PCP: ELIZABETH Garcia Status:ADM IN [facility] (Standard) Operative Information Date of Procedure: 12/16/24 Pre-Operative Diagnosis: 1. Left wrist septic arthritis 2. Left shoulder pain, concern for septic arthritis 3. Right shoulder pain, concern for septic arthritis Post-Operative Diagnosis: 1. Left wrist septic arthritis 2. Left shoulder pain, concern for septic arthritis 3. Right shoulder pain, concern for septic arthritis Surgery/Procedure Performed: 1. Left wrist irrigation and debridement with synovectomy 2. Left shoulder arthrocentesis under fluoroscopic guidance 3. Right shoulder arthrocentesis under fluoroscopic guidance evidence specialist: No Type of Anesthesia: General RN Documented Start/Stop Times: Operation Date: 12/16/24 08:00 Case Time Into Pre-Op 12/16/24 14:01 Anesthesia Start 12/16/24 14:58 Into Room 12/16/24 14:58 Procedure Start 12/16/24 15:08 Procedure End 12/16/24 15:55 Anesthesia End 12/16/24 16:00 Out of Room 12/16/24 16:00 Into Recovery 12/16/24 16:05 Procedure Start Time: 15:08 Procedure Stop Time: 15:55 Select all DRAINS/GRAFTS/IMPLANTS that apply: None Estimated Blood Loss: 10 cc Specimen collected: Yes Description of specimen(s) removed: Left shoulder synovial fluid culture Right shoulder synovial fluid culture Left wrist synovial fluid culture Description of surgery: Patient was identified in the preoperative holding area by name, medical record number, and date of . The operative extremity was marked. All questions were answered to the patient's satisfaction. At time of her procedure, patient was brought to the operative suite and positioned supine on a standard operating table. General anesthesia was induced and LMA was placed. Tube was secured. I then brought in the C arm to perform arthrocentesis of bilateral shoulders. Anterior shoulders were prepped with chlorhexidine. We then performed a timeout confirming the sides, sites and operations to be performed. No concerns were voiced with to proceed with surgery. Patient was not due for her scheduled Zosyn or vancomycin during the surgical procedure no additional antibiotics were administered. 18-gauge needle was then inserted into the glenohumeral joint of the left and subsequently the right shoulder. Left shoulder yielded less than 1 cc of turbid fluid which was sent for culture. The right shoulder aspirate was dry. Band-Aids were applied after the needles were withdrawn. I then turned my attention to the left wrist. Well-padded pneumatic tourniquet was applied to the left forearm. Arm was positioned on a hand table. We prepped and draped the left hand and wrist in a normal, sterile orthopedic fashion. I then elevated the left hand for 1 minute and then inflated the tourniquet to 250 mmHg for approximately 20 minutes. Standard dorsal approach to the wrist was performed in line with Boogie's tubercle. Extensor retinaculum was opened in line with the incision. The extensor pollicis longus tendon was then retracted radially. Purulent fluid was encountered in the area of the arthrocentesis in the subcutaneous plane. There was no obvious fluid within the third, second or fourth dorsal compartments. A 1 cm longitudinal arthrotomy was then performed and dorsal wrist capsule identified the scapholunate interval. Femi pus was encountered. Dorsal synovectomy was performed with combination of rongeur and scissors. The radiocarpal and midcarpal joints were then thoroughly irrigated with 3 L normal saline via cystoscopy tubing. The capsule was then closed with interrupted [id number] 3-0 PDS suture. Extensive at retinaculum was repaired with interrupted [id number] 3-0 PDS suture. Dermis was reapproximated buried 3-0 PDS suture and skin finally approximated with a running baseball stitch 3-0 nylon. Bulky sterile compression dressing was applied. Patient was placed in a resting splint of the wrist. She is awake from anesthesia and safely ectopy in the operative suite. She was transferred to her hospital bed and subsequently PACU in stable condition. Postoperative plan: Maintain splint until tomorrow. Plan to reevaluate the left wrist as well as bilateral shoulders. Provisionally I will make the patient n.p.o. after midnight tonight for possible I D of the left shoulder as the fluid was concerning for infection. Her clinical picture is quite unusual with multiple joints being affected however her recent viral infection in the setting of baseline immunosuppression secondary to antirheumatic medication obviously increases her risk of infection in (more content not included)... Normal [facility] Phosphoruson 12-16-2024 Phosphate [Mass/Vol] 2.9 mg/dL Normal 2.7-4.5 [facility] Comment on above: Performed By: #### L 500.2500, L100.0100 #### [facility] [address] [place], [place], [id number] Routine wound cultureOrdered By: Gbariel Evangelista on 12-16-2024 Wound Culture Haemophilus influenzae Abnormal [facility] Serum globulin measurementOr dered By: Mauricio Sylvester on 12-16-2024 Globulin (S) [Mass/Vol] 3.5 g/dL 2.2-4.2 [facility] Serum or plasma alanine ragland otransferase (ALT) measurementOrdered By: Mauricio Sylvester on 12-16-2024 ALT [Catalytic activity/Vol] 52 U/L High <35 [facility] Serum or plasma albumin dali urement (mass/volume)Ordered By: Mauricio Sylvester on 12-16-2024 Albumin [Mass/Vol] 2.9 g/dL Low 3.5-5.0 [facility] Serum or plasma albumin/glob ulin mass ratioOrdered By: Mauricio Sylvester on 12-16-2024 Albumin/Globulin [Mass ratio] 0.8 {ratio} Low 0.9-2.4 [facility] Serum or plasma alkaline karthik sphatase measurementOrdered By: Mauricio Sylvester on 12-16-2024 ALP [Catalytic activity/Vol] 69 U/L 35-104 [facility] Shoulder One Viewon 12-16-19 25 Shoulder One View [facility] Imaging Services [address] [place], [place] [address] Shoulder One View MR#: [id number] Acct: [id number] Name: YESENIABECKY TRAY Rep #: [id number] : 1970 F 54 From: Jeffery gleason MD PCP: ELIZABETH Garcia Status: ADM IN Study: Shoulder One View Date of Exam: 12/16/24 Exam# [id number] Ordering Dr: Gabriel Evangelista DO PROCEDURE: SHOULDER ONE VIEW REASON FOR EXAM: Right shoulder aspiration. TECHNIQUE: One (1) view of each shoulder COMPARISON: None. FINDINGS: Intraoperative imaging provided for right shoulder aspiration. RAD/Shoulder One View IMPRESSION: Fluoroscopic services provided for right shoulder aspiration. Reading Location: [facility] CC: ELIZABETH Ireland; Dr. Gabriel Evangelista DO Tourist Adviser: Signed Normal [facility] Shoulder One View [facility] Imaging Services [address] [place] [address] Shoulder One View MR#: [id number] Acct: [id number] Name: BECKY HUFFMAN Rep #: [id number] : 1970 F 54 From: Jeffery gleason MD PCP: ELIZABETH Garcia Status: ADM IN Study: Shoulder One View Date of Exam: 12/16/24 Exam# [id number] Ordering Dr: Gabriel Evangelista DO PROCEDURE: SHOULDER ONE VIEW REASON FOR EXAM: Left shoulder aspiration. TECHNIQUE: One (1) view of each shoulder COMPARISON: None. FINDINGS: Fluoroscopic services provided for left shoulder aspiration. RAD/Shoulder One View IMPRESSION: Fluoroscopic services provided for left shoulder aspiration. Reading Location: [facility] CC: ELIZABETH Ireland; Dr. Gabriel Evangelista DO Tourist Adviser: Signed Normal [facility] TSH DL <= 0.005 mIU/L QnOrde red By: Mauricio Sylvester on 12-16-2024 Thyroid Stimulating Hormone (TSH) 1.340 uIU/mL 0.300-4.200 [facility] Thyroid Stim Hormone (TSH)on 12-16-2024 TSH 1.340 uIU/mL Normal 0.300-4.200 [facility] Comment on above: Performed By: #### L 500.2500, L100.0100 #### [facility] [address] [place], [address] Total proteinOrdered By: Roger Sylvester on 12-16-2024 Protein [Mass/Vol] 6.4 g/dL 5.9-8.4 [facility] Bacteria identified Anaer cx Nom (Unsp spec)Ordered By: Ajith Chavira on 12-15-2024 Anaerobic Culture No growth in 5 days. [facility] Basic Metabolic Profile (BMP )on 12-15-2024 Anion gap [Moles/Vol] 15 mmol/L Normal 5-15 [facility] Comment on above: Performed By: #### L 501.6710, L100.0100, L500.2500, L101.9900 ####[facility] [address] [place], [address] BUN/CRE 27.1 RATIO High 10-20 [facility] Comment on above: Performed By: #### L 501.6710, L100.0100, L500.2500, L101.9900 ####[facility] [address] [place], [address] Calcium [Mass/Vol] 9.3 mg/dL Normal 7.6-11.0 [facility] Comment on above: Performed By: #### L 501.6710, L100.0100, L500.2500, L101.9900 ####[facility] [address] [place], [address] Chloride [Moles/Vol] 98 mmol/L Normal 96-108 [facility] Comment on above: Performed By: #### L 501.6710, L100.0100, L500.2500, L101.9900 ####[facility] [address] [place], [address] CO2 [Moles/Vol] 19.8 mmol/L Low 22.0-29.0 [facility] Comment on above: Performed By: #### L 501.6710, L100.0100, L500.2500, L101.9900 ####[facility] [address] [place], [address] Creatinine [Mass/Vol] 1.06 mg/dL Normal 0.70-1.20 [facility] Comment on above: Performed By: #### L 501.6710, L100.0100, L500.2500, L101.9900 ####[facility] [address] [place], [address] ECRCL 55.48 ml/min Normal [facility] Comment on above: Performed By: #### L 501.6710, L100.0100, L500.2500, L101.9900 ####[facility] [address] [place], [address] GFR/1.73 sq M.predicted among non-blacks MDRD (S/P/Bld) [Vol rate/Area] 62 mL/min/{1.73_m2} Normal >60 [facility] Comment on above: Result Comment: mL/m in/1.73m2 CKD-EPI Creatinine Equation (2020) Performed By: #### L 501.6710, L100.0100, L500.2500, L101.9900 ####[facility] [address] [place], [address] Glucose [Mass/Vol] 122 mg/dL High 70-99 [facility] Comment on above: Performed By: #### L 501.6710, L100.0100, L500.2500, L101.9900 ####[facility] [address] [place], [address] Potassium [Moles/Vol] 3.7 mmol/L Normal 3.3-5.1 [facility] Comment on above: Performed By: #### L 501.6710, L100.0100, L500.2500, L101.9900 ####[facility] [address] [place], [address] Sodium [Moles/Vol] 134 mmol/L Normal 133-145 [facility] Comment on above: Performed By: #### L 501.6710, L100.0100, L500.2500, L101.9900 ####[facility] [address] [place], [address] Urea nitrogen [Mass/Vol] 29 mg/dL High 4-19 [facility] Comment on above: Performed By: #### L 501.6710, L100.0100, L500.2500, L101.9900 ####[facility] [address] [place], [address] Bite cells LM Ql (Bld)Ordere d By: Ajith Chavira on 12-15-2024 Bite Cells RARE [facility] Blood cultureOrdered By: Ajith Chavira on 12-15-2024 Bacteria identified Cx Nom (Bld) Haemophilus influenzae Abnormal [facility] Body Fluid Cell Count+Diffon 12-15-2024 PATH COMM/BF May follow [facility] Comment on above: Result Comment: UNAB LE TO PERFORM DUE TO VISCOSITY OF SPECIMEN Performed By: #### L 500.2500, L100.0100 #### [facility] [address] [place], [address] APPEAR/BF Normal [facility] Comment on above: Result Comment: UNAB LE TO PERFORM DUE TO VISCOSITY OF SPECIMEN Performed By: #### L 500.2500, L100.0100 #### [facility] [address] [place], [address] BFM 2ND SPEC Normal [facility] Comment on above: Result Comment: UNAB LE TO PERFORM DUE TO VISCOSITY OF SPECIMEN Performed By: #### L 500.2500, L100.0100 #### [facility] [address] [place], [address] BFTC# Normal [facility] Comment on above: Result Comment: UNAB LE TO PERFORM DUE TO VISCOSITY OF SPECIMEN Performed By: #### L 500.2500, L100.0100 #### [facility] [address] [place], [address] BODY FLUID QC Normal [facility] Comment on above: Result Comment: UNAB LE TO PERFORM DUE TO VISCOSITY OF SPECIMEN Performed By: #### L 500.2500, L100.0100 #### [facility] [address] [place], [address] COLOR/BF Normal [facility] Comment on above: Result Comment: UNAB LE TO PERFORM DUE TO VISCOSITY OF SPECIMEN Performed By: #### L 500.2500, L100.0100 #### [facility] [address] [place], [address] qBKG ANALYZ OK? Normal W/IN LIMITS [facility] Comment on above: Result Comment: UNAB LE TO PERFORM DUE TO VISCOSITY OF SPECIMEN Performed By: #### L 500.2500, L100.0100 #### [facility] [address] [place], [address] RBC/BF Normal [facility] Comment on above: Result Comment: UNAB LE TO PERFORM DUE TO VISCOSITY OF SPECIMEN Performed By: #### L 500.2500, L100.0100 #### [facility] [address] [place], [address] SOURCE/BF Normal [facility] Comment on above: Result Comment: UNAB LE TO PERFORM DUE TO VISCOSITY OF SPECIMEN Performed By: #### L 500.2500, L100.0100 #### [facility] [address] [place], [address] WBC/BF Normal [facility] Comment on above: Result Comment: UNAB LE TO PERFORM DUE TO VISCOSITY OF SPECIMEN Performed By: #### L 500.2500, L100.0100 #### [facility] [address] [place], [address] Body fluid cultureOrdered By : Ajith Chavira on 12-15-2024 Body Fluid Culture Haemophilus influenzae Abnormal [facility] Lizett cells LM Ql (Bld)Ordere d By: Ajith Chavira on 12-15-2024 Crenated Cell 2+ [facility] C-REACTIVE PROTEINon 025 CRP [Mass/Vol] 32.5 mg/dL High NINF - 0.9 mg/dL [facility] CBC W Auto Differential pane l (Bld)on 12-15-2024 Basophils (Bld) [#/Vol] 0.00 10*3/uL Normal <0.11 [facility] Comment on above: Order Comment: Speci men Type: BLOOD SPECIMENOrdering Facility: [facility] Address: [address] [place] [address] Performed By: #### 4 537-7 ####[facility] LABCLIA [id number] [facility] [place] [address] [place]#### 11117-4 ####[facility] FLORIDAWNCLIA [id number] [address] LABCLIA [id number] [place] [address] [place] Basophils/100 WBC (Bld) 0.0 % Normal [facility] Comment on above: Order Comment: Speci men Type: BLOOD SPECIMENOrdering Facility: [facility] Address: [address] [place] [address] Performed By: #### 4 537-7 ####[facility] LABCLIA [id number] [place] [address] [place]#### 63093-7 ####[facility] FL[facility]IDAWNCLIA [id number] [address] LABCLIA [id number] [facility] [place] [place] [address] [place] Differential cell count method Nom (Bld) Manual Normal [facility] Comment on above: Order Comment: Speci men Type: BLOOD SPECIMENOrdering Facility: [facility] Address: [address] [place] [address] Performed By: #### 4 537-7 ####[facility] LABCLIA [id number] [address], [facility] [place]#### 18807-3 ####[facility] [id number] [address] LABCLIA [id number] [facility] [address] [place] [address] [place] Eosinophils (Bld) [#/Vol] 0.00 10*3/uL Normal <0.46 [facility] Comment on above: Order Comment: Speci men Type: BLOOD SPECIMENOrdering Facility: [facility] Address: [address] [place] [address] Performed By: #### 4 537-7 ####[facility] LABCLIA [id number] [place] [address] [place]#### 98789-3 ####[facility] [id number] [address] STATES OF [facility] LABCLIA [id number] [place] [address] [place] Eosinophils/100 WBC (Bld) 0.0 % Normal [facility] Comment on above: Order Comment: Speci men Type: BLOOD SPECIMENOrdering Facility: [facility] Address: [address] [place] [address] Performed By: #### 4 537-7 ####[facility] LABCLIA [id number] [place] [address] [place]#### 80475-1 ####[facility] [id number] [address] STATES OF [facility] LABCLIA [id number] [facility] [address], [facility] [place] Erythrocyte distribution width (RBC) [Ratio] 12.7 % Normal 11.5-15.0 [facility] Comment on above: Order Comment: Speci men Type: BLOOD SPECIMENOrdering Facility: [facility] Address: [address] [place] [address] Performed By: #### 4 537-7 ####[facility] LABCLIA [id number] [address] [place] [address] [place]#### 97117-1 ####[facility] FLORIDAWCTLIA [id number] [address] STATES OF [facility] LABCLIA [id number] [address], [facility] [place] Hematocrit (Bld) [Volume fraction] 39.7 % Normal 36.0-46.0 [facility] Comment on above: Order Comment: Speci men Type: BLOOD SPECIMENOrdering Facility: [facility] Address: [address] [place] [address] Performed By: #### 4 537-7 ####[facility] LABCLIA [id number] [address], [facility] [place]#### 70349-2 ####[facility] CENTERLIA [id number] [address] STATES OF [facility] LABCLIA [id number] [address] [place] [address] [place] Hemoglobin (Bld) [Mass/Vol] 12.9 g/dL Normal 11.5-15.5 [facility] Comment on above: Order Comment: Speci men Type: BLOOD SPECIMENOrdering Facility: [facility] Address: [address] [place], [place] [address] Performed By: #### 4 537-7 ####[facility] LABCLIA [id number] [address] [address] [place]#### 53880-0 ####[facility]ENTERNCLIA [id number] [address] STATES [facility] LABCLIA [id number] [place] [address] [place] Lymphocytes (Bld) [#/Vol] 1.77 10*3/uL Normal 1.00-4.00 [facility] Comment on above: Order Comment: Speci men Type: BLOOD SPECIMENOrdering Facility: [facility] Address: [address] [place] [address] Performed By: #### 4 537-7 ####[facility] LABCLIA [id number] [place] [address] [place]#### 59180-6 ####[facility] [id number] [address] STATES [facility] LABCLIA [id number] [address] [place] Lymphocytes/100 WBC (Bld) 12.6 % Normal [facility] Comment on above: Order Comment: Speci men Type: BLOOD SPECIMENOrdering Facility: [facility] Address: [address] [place] [address] Performed By: #### 4 537-7 ####[facility] LABCLIA [id number] [place] [address] [place]#### 04328-0 ####[facility] MILLWNCLIA [id number] [place] [address] [place] [facility] LABCLIA [id number] [place] [address] [place] MCH (RBC) [Entitic mass] 31.4 pg Normal 26.0-34.0 [facility] Comment on above: Order Comment: Speci men Type: BLOOD SPECIMENOrdering Facility: [facility] Address: [address] [place] [address] Performed By: #### 4 537-7 ####[facility] LABCLIA [id number] [place] [address] [place]#### 55702-1 ####[facility] MILLTOWNCLIA [id number] [address] LABCLIA [id number] [place] [address] [place] MCHC (RBC) [Mass/Vol] 32.5 g/dL Normal 30.5-36.0 [facility] Comment on above: Order Comment: Speci men Type: BLOOD SPECIMENOrdering Facility: [facility] Address: [address] [place] [address] Performed By: #### 4 537-7 ####[facility] LABCLIA [id number] [place] [address] [place]#### 82505-1 ####[facility] FL[facility]IDAWNCLIA [id number] [address] STATES [facility] LABCLIA [id number] [place] [address] [place] MCV (RBC) [Entitic vol] 96.6 fL Normal 80.0-100.0 [facility] Comment on above: Order Comment: Speci men Type: BLOOD SPECIMENOrdering Facility: [facility] Address: [address] [place], [place] [address] Performed By: #### 4 537-7 ####[facility] LABCLIA [id number] [place] [address] [place]#### 24852-8 ####[facility] MILLTOWNCLIA [id number] [address] LABCLIA [id number] [facility] [address] [address] [place] Monocytes (Bld) [#/Vol] 0.83 10*3/uL Normal <0.87 [facility] Comment on above: Order Comment: Speci men Type: BLOOD SPECIMENOrdering Facility: [facility] Address: [address] [place] [address] Performed By: #### 4 537-7 ####[facility] LABCLIA [id number] [facility] [place] [place] [address] [place]#### 59788-0 ####[facility] FL[facility]IDAWNCLIA [id number] [address] LABCLIA [id number] [facility] [place] [address] [place] Monocytes/100 WBC (Bld) 5.9 % Normal [facility] Comment on above: Order Comment: Speci men Type: BLOOD SPECIMENOrdering Facility: [facility] Address: [address] [place] [address] Performed By: #### 4 537-7 ####[facility] LABCLIA [id number] [place] [address] [place]#### 41237-5 ####[facility] FLORIDAWNCLIA [id number] [address] STATES OF [facility] LABCLIA [id number] [facility] [place] [id number] [place] Neutrophils (Bld) [#/Vol] 11.43 10*3/uL High 1.45-7.50 [facility] Comment on above: Order Comment: Speci men Type: BLOOD SPECIMENOrdering Facility: [facility] Address: [address] [place] [address] Performed By: #### 4 537-7 ####[facility] LABCLIA [id number] [facility] [address], [facility] [place]#### 97041-2 ####[facility] MILLWNCLIA [id number] [place] [address] [place] [facility] LABCLIA [id number] [facility]D [facility] [address] [place] [address] [place] Neutrophils/100 WBC (Bld) 81.5 % Normal [facility] Comment on above: Order Comment: Speci men Type: BLOOD SPECIMENOrdering Facility: [facility] Address: [address] [place] [address] Performed By: #### 4 537-7 ####[facility] LABCLIA [id number] [facility] [address], [place] [address] [place]#### 84246-4 ####[facility]ENTERNCLIA [id number] [place] [address] [place] [facility] LABCLIA [id number] [facility] [place] [address] [place] Nucleated RBC (Bld) [#/Vol] 10*3/uL Normal <0.01 [facility] Comment on above: Order Comment: Speci men Type: BLOOD SPECIMENOrdering Facility: [facility] Address: [address] [place] [address] Performed By: #### 4 537-7 ####[facility] LABCLIA [id number] [facility] [address], [facility] [place]#### 62173-0 ####[facility] FLORIDAWNCLIA [id number] [place] [address] [place] [facility] LABCLIA [id number] [facility] [address], [facility] [place] Nucleated RBC/100 WBC (Bld) [Ratio] 0.0 /100 WBC Normal [facility] Comment on above: Order Comment: Speci men Type: BLOOD SPECIMENOrdering Facility: [facility] Address: [address] [place] [address] Performed By: #### 4 537-7 ####[facility] LABCLIA [id number] [place] [address] [place]#### 89118-8 ####[facility] MILLTOWNCLIA [id number] [place] [address] [place] [facility] LABCLIA [id number] [place] [address] [place] Ovalocytes LM Ql (Bld) Few Normal Cl [facility] Comment on above: Order Comment: Speci men Type: BLOOD SPECIMENOrdering Facility: [facility] Address: [address] [place] [address] Performed By: #### 4 537-7 ####[facility] LABCLIA [id number] [place] [address] [place]#### 66237-2 ####[facility]AWNCLIA [id number] [place] [address] [place] [facility] LABCLIA [id number] [place] [address] [place] Platelet mean volume (Bld) [Entitic vol] 11.4 fL Normal 9.0-12.7 [facility] Comment on above: Order Comment: Speci men Type: BLOOD SPECIMENOrdering Facility: [facility] Address: [address] [place] [address] Performed By: #### 4 537-7 ####[facility] LABCLIA [id number] [place] [address] [place]#### 61463-7 ####[facility] MILLTOWNCLIA [id number] [place] [address] [place] [facility] LABCLIA [id number] [address] [place] [address] [place] Platelets (Bld) [#/Vol] 190 10*3/uL Normal 150-400 [facility] Comment on above: Order Comment: Speci men Type: BLOOD SPECIMENOrdering Facility: [facility] Address: [address] [place] [address] Performed By: #### 4 537-7 ####[facility] LABCLIA [id number] [place] [address] [place]#### 50490-8 ####[facility]ENT[facility]CL[facility] [id number] [place] [address] [place] [facility] LABCLIA [id number] [place] [address] [place] Platelets Estimate (Bld) [#/Vol] Adequate Normal [facility] Comment on above: Order Comment: Speci men Type: BLOOD SPECIMENOrdering Facility: [facility] Address: [address] [place] [address] Performed By: #### 4 537-7 ####[facility] LABCLIA [id number] [place] [address] [place]#### 40322-8 ####[facility]AWNCLIA [id number] [place] [address] [place] [facility] LABCLIA [id number] [place] [id number] [place] Polychromasia LM Ql (Bld) Slight Normal [facility] Comment on above: Order Comment: Speci men Type: BLOOD SPECIMENOrdering Facility: [facility] Address: [address] [place], [place] [id number] Performed By: #### 4 537-7 ####[facility] LABCLIA [id number] [place] [address] [place]#### 09269-4 ####[facility] MILLTOWNCLIA [id number] [place], [place] [address] [place] [facility] LABCLIA [id number] [place] [address] [place] RBC (Bld) [#/Vol] 4.11 10*6/uL Normal 3.90-5.20 [facility] Comment on above: Order Comment: Speci men Type: BLOOD SPECIMENOrdering Facility: [facility] Address: [address] [place] [address] Performed By: #### 4 537-7 ####[facility] LABCLIA [id number] [place] [address] [place]#### 15781-2 ####[facility] FLORIDAWNCLIA [id number] [place] [address] [place] [facility] LABCLIA [id number] [address] [place] RED CELL MORPH Reviewed: see result s of individual morphologies Normal [facility] Comment on above: Order Comment: Speci men Type: BLOOD SPECIMENOrdering Facility: [facility] Address: [address] [place] [address] Performed By: #### 4 537-7 ####[facility] LABCLIA [id number] [place] [address] [place]#### 24921-6 ####[facility] MILLTOWNCLIA [id number] [place] [address] [place] [facility] LABCLIA [id number] [address] [address] [place] WBC (Bld) [#/Vol] 14.03 10*3/uL High 3.70-11.00 [facility] Comment on above: Order Comment: Speci men Type: BLOOD SPECIMENOrdering Facility: [facility] Address: [address] [place] [address] Performed By: #### 4 537-7 ####[facility] LABCLIA [id number] [place] [id number] [place] [facility]#### 69893-7 ####[facility]ENT[facility]CLIA [id number] [place], [place] [address] [place] [address] [place] [facility] LABCLIA [id number] [address] [address] [place] CBC W/Diff, Automatedon 11-20 BITE CELL RARE Normal [facility] Comment on above: Performed By: #### L 501.6710, L100.0100, L500.2500, L101.9900 ####[facility] [address] [place], [address] Anisocytosis Ql (Bld) 1+ Normal [facility] Comment on above: Performed By: #### L 501.6710, L100.0100, L500.2500, L101.9900 ####[facility] [address] [place], [address] CRENATED RBC 2+ Normal [facility] Comment on above: Performed By: #### L 501.6710, L100.0100, L500.2500, L101.9900 ####[facility] [address] [place], [address] OVALOCYTE 1+ Normal [facility] Comment on above: Performed By: #### L 501.6710, L100.0100, L500.2500, L101.9900 ####[facility] [address] [place], [address] POLYCHROMASIA 1+ Normal [facility] Comment on above: Performed By: #### L 501.6710, L100.0100, L500.2500, L101.9900 ####[facility] [address] [place], [address] SCHISTOCYTES RARE Normal [facility] Comment on above: Performed By: #### L 501.6710, L100.0100, L500.2500, L101.9900 ####[facility] [address] [place], [address] TARGET CELLS RARE Normal [facility] Comment on above: Performed By: #### L 501.6710, L100.0100, L500.2500, L101.9900 ####[facility] [address] [place], [address] PLT EST ADEQUATE Normal ADEQ [facility] Comment on above: Performed By: #### L 501.6710, L100.0100, L500.2500, L101.9900 ####[facility] [address] [place], [address] SMEAR COMMENT Normal [facility] Comment on above: Result Comment: 1+ B ANDS NOTED Performed By: #### L 501.6710, L100.0100, L500.2500, L101.9900 ####[facility] [address] [place], [address] TOXIC GRAN 1+ Normal [facility] Comment on above: Performed By: #### L 501.6710, L100.0100, L500.2500, L101.9900 ####[facility] [address] [place], [address] VACUOLATE CELLS 2+ Normal [facility] Comment on above: Performed By: #### L 501.6710, L100.0100, L500.2500, L101.9900 ####[facility] [address] [place], [address] CNCOon 12-15-2024 CNCO Letter Text Normal [facility] CNOVon 12-15-2024 CNOV Office Visit (FAMPWS ) BECKY HUFFMAN ([id number]) 1970 F Date Time Provider Department 12/15/24 9:20 AM HILDA UMANA During your visit today, we recorded the following information about you: Pulse Blood pressure Weight 68/minute 112/70 65.8 kg Hilda Umana APRN.ATMOSPHERIC CHEMIST 12/21/2024 7:28 PM Signed Chief Complaint Patient presents with: Pain (Shoulder Pain): Left shoulder Wrist Pain HPI Becky Huffman is a 54 year old female who presents here today for Above Complaints. Left oufxffvu-ruau-polhjf an RA flare-knows this is what is going on Left wkdtd-uqtg-recohe an RA flare-knows this is what is going on A couple bouts of throwing up-thinks it's because of meds and that she can't get much food down. Just feels like she can't swallow or get foods down. Thinks she could be sick but not sure-some nausea, chills, exposure to influenza A. Overall just doesn't feel well. Past medical history, appointments, medications, allergies reviewed. Previous Medical History PAST MEDICAL HISTORY Diagnosis Date Breast cancer (HCC) 2019 PMH - PAST MEDICAL HISTORY OF FATIGUE PMH - PAST MEDICAL HISTORY OF achy joints Premenstrual tension syndromes PMS Rheumatoid arthritis involving multiple sites (HCC) 05/20/2021 Rheumatoid arthritis(714.0) Previous Surgical History PAST SURGICAL HISTORY Procedure Laterality Date COLONOSCOPY, COLORECTAL SCREEN 10/17/2019 Dr. Travis Elias, [facility]; 4mm sessile polyp in proximal sigmoid colon, many diverticula in sigmoid colon, repeat in 5yr's MASTECTOMY HX Bilateral 2019 with tissue flap reconstruction PAST SURGICAL HISTORY OF Right 12/28/2018 lumpectomy PROVIDE CHEMOTHERAPY AGENT 2019 RADIATION THERAPY 2019 REMOVAL OF OVARY(S) Bilateral 02/2020 SALPINGECTOMY Bilateral 02/2020 TONSILLECTOMY PRIMARY/SECONDARY Tonsillectomy Family History FAMILY HISTORY Problem Relation Age of Onset Cancer Mother throat - radiation Cancer Father LUNG Hypertension Brother Diabetes Brother type 2 Hypertension Brother other (CHF) Maternal Grandfather Hypertension Paternal Grandfather Heart Paternal Grandfather No Known Problems Daughter Diabetes Son Type 1 Cancer Other Cancer Other Patient Allergies ALLERGIES No Known Allergies Current Medications Current Outpatient Medications on File Prior to Visit Medication Sig predniSONE (DELTASONE) 20 mg tablet Take 1 tablet by mouth two times a day for 5 days. benzonatate (TESSALON PERLE) 100 mg capsule Take 1 capsule by mouth three times a day as needed for cough for up to 7 days. anastrozole (ARIMIDEX) 1 mg tablet Take 1 tablet by mouth once daily. hydrOXYchloroQUINE (PLAQUENIL) 200 mg tablet Take 200 mg by mouth once daily. cholecalciferol, vitamin D3, (VITAMIN D3 ORAL) Take 2,000 Units by mouth once daily. certolizumab pegol (CIMZIA SUBCUTANEOUS) Inject 200 mg subcutaneously. Twice a month calcium carbonate/vitamin D3 (CALCIUM 600 + D ORAL) Take 1 tablet by mouth once daily. leflunomide (ARAVA) 20 mg tablet Take 20 mg by mouth once daily. ferrous sulfate 325 mg (65 mg iron) tablet Take 325 mg by mouth once daily. DAILY MULTIVITAMIN TAB Take 1 tablet by mouth once daily. No current facility-administered medications on file prior to visit. Social History Social History Tobacco Use Smoking status: Never Smokeless tobacco: Never Vaping Use Vaping status: Never Used Substance Use Topics Alcohol use: No Drug use: No Review of Symptoms REVIEW OF SYSTEMS See HPI, otherwise negative EXAM: BP 112/70 Pulse 68 Wt 65.8 kg (145 lb) LMP 12/04/2016 BMI 23.44 kg/m? General Appearance: ill-appearing, alert, in no acute distress, well-hydrated, well nourished.. Eyes: Anicteric sclera. Pupils are equally round and reactive to light. Extraocular movements are intact. . Ears: External ears normal, canals clear. Nose/Sinuses: Nares normal, septum midline, mucosa normal, no drainage or sinus tenderness. Oropharynx: Lips, mucosa, and tongue normal, teeth and gums normal, oropharynx normal. Neck: 2+ bilateral anterior cervical and submandibular lymphadenopathy. Lungs: Lungs clear to auscultation. No wheezing, rhonchi, rales.. Heart: RRR without murmur, gallop, or rubs. No ectopy. Lymph Nodes: 2+ bilateral anterior cervical and submandibular lymphadenopathy.. Psychiatric: pleasant, cooperative. Health Maintenance List Depression Screening Never done Anxiety Screening Never done Pneumococcal Vaccine: 50+(1 of 2 - PCV) Never done Cervical Cancer Screening due on 12/31/2021 Colorectal Cancer Screening due on 10/17/2024 Hepatitis B Vaccine(1 of 3 - 19+ 3-dose series) due on 02/14/2025 Covid-19 Vaccine(3 - Pfizer risk series) due on 02/14/2025 Diabetes Screening due on 05/05/2027 Lipid Screening due on 05/05/2029 DTaP,Tdap,Td Vaccine(2 - Td or Tdap) due on 0 (more content not included)... Normal [facility] COVID & INFLUENZA A/B & RSV PCR, ROUTINEon 12-15-2024 FLUAV RNA NANCY+probe Ql (Unsp spec) Not detected Not Detected [facility] FLUBV RNA NANCY+probe Ql (Unsp spec) Not detected Not Detected [facility] Interpretation and review of laboratory results Normal [facility] RSV A RNA NANCY+probe Ql (Unsp spec) Not detected Not Detected [facility] SARS-CoV-2 (COVID-19) RNA NANCY+probe Ql (Unsp spec) Not detected See comment [facility] Reference Range (the expected result in uninfected individuals): Not detected [facility] CRPon 12-15-2024 C-REACTIVE PROT 412.00 mg/L High 0.0-3.0 [facility] Comment on above: Performed By: #### L 501.3257, L100.0100, L500.2500, L101.9900 ####[facility] [address] [place], [address] CRP SerPl-mCncon 12-15-2024 CRP [Mass/Vol] 32.5 mg/dL High <0.9 [facility] Comment on above: Order Comment: Speci men Type: BLOOD SPECIMENOrdering Facility: [facility] Address: [address] [place] [address] Performed By: #### 2 4323-8, 2532-0, 1988-02 ####[facility] LABORATORYCLIA [id number] [place] [id number] [place] [facility] CRP [Mass/Vol]Ordered By: Meredith Chavira on 12-15-2024 C-Reactive Protein Extended Range 412.00 mg/L High 0.0-3.0 [facility] Comprehensive metabolic 2000 panelon 12-15-2024 Albumin [Mass/Vol] 3.8 g/dL Low 3.9 - 4.9 g/dL [facility] ALP [Catalytic activity/Vol] 91 U/L 34 - 123 U/L [facility] ALT With P-5'-P [Catalytic activity/Vol] 32 U/L 7 - 38 U/L [facility] Anion gap [Moles/Vol] 16 mmol/L High 8 - 15 mmol/L [facility] AST With P-5'-P [Catalytic activity/Vol] 36 U/L High 13 - 35 U/L [facility] Bilirubin [Mass/Vol] 2.1 mg/dL High 0.2 - 1 .3 mg/dL [facility] Calcium [Mass/Vol] 9.6 mg/dL 8.5 - 10. 2 mg/dL [facility] Chloride [Moles/Vol] 98 mmol/L 98 - 10 7 mmol/L [facility] CO2 [Moles/Vol] 23 mmol/L 22 - 30 mmol/L [facility] Creatinine [Mass/Vol] 0.99 mg/dL High 0.58 - 0.96 mg/dL [facility] GFR/1.73 sq M.predicted among non-blacks MDRD (S/P/Bld) [Vol rate/Area] 67 mL/min/{1.73_m2} - PINF [facility] Comment on above: Estimated Glomerular Filtration Rate (eGFR) is calculated using the 2020 CKD-EPI creatinine equation. This equation utilizes serum creatinine, sex, and age as parameters. The creatinine assay has traceable calibration to isotope dilution-mass spectrometry. Refer to KDIGO guidelines for clinical interpretation. In patients with unstable renal function, e.g. those with acute kidney injury, the eGFR may not accurately reflect actual GFR. Glucose [Mass/Vol] 115 mg/dL High 74 - 99 mg/dL [facility] Comment on above: The [place] Diabete s Association (ADA) provides guidance for cutoff values for fasting glucose and random glucose. The ADA defines fasting as no caloric intake for at least 8 hours. Fasting plasma glucose results between 100 to 125 mg/dL indicate increased risk for diabetes (prediabetes). Fasting plasma glucose results greater than or equal to 126 mg/dL meet the criteria for diagnosis of diabetes. In the absence of unequivocal hyperglycemia, results should be confirmed by repeat testing. In a patient with classic symptoms of hyperglycemia or hyperglycemic crisis, random plasma glucose results greater than or equal to 200 mg/dL meet the criteria for diagnosis of diabetes. Reference: Standards of Medical Care in Diabetes 2016, [place] Diabetes Association. Diabetes Care. 2016.39(Suppl 1). Potassium [Moles/Vol] 4 mmol/L 3.7 - 5.1 mmol/L [facility] Protein [Mass/Vol] 6.7 g/dL 6.3 - 8.0 g/dL [facility] Sodium [Moles/Vol] 137 mmol/L 136 - 144 mmol/L [facility] Urea nitrogen [Mass/Vol] 20 mg/dL 7 - 21 mg/dL [facility] Albumin [Mass/Vol] 3.8 g/dL Low 3.9-4.9 [facility] Comment on above: Order Comment: Agatha horner Type: BLOOD SPECIMENOrdering Facility: [facility] Address: [address] [place] [address] Performed By: #### 2 4323-8, 0, 1988-02 ####[facility] LABORATORYCLIA [id number] [place] [address] [place] ALP [Catalytic activity/Vol] 91 U/L Normal 34-123 [facility] Comment on above: Order Comment: Agatha horner Type: BLOOD SPECIMENOrdering Facility: [facility] Address: [address] [place] [address] Performed By: #### 2 4323-8, , 1988-02 ####[facility] LABORATORYCLIA [id number] [place] [address] [place] ALT With P-5'-P [Catalytic activity/Vol] 32 U/L Normal 7-38 [facility] Comment on above: Order Comment: Speci men Type: BLOOD SPECIMENOrdering Facility: [facility] Address: [address] [place] [address] Performed By: #### 2 432-8, , 1988-02 ####[facility] LABORATORYCLIA [id number] [place] [address] [place] Anion gap [Moles/Vol] 16 mmol/L High 8-15 [facility] Comment on above: Order Comment: Speci men Type: BLOOD SPECIMENOrdering Facility: [facility] Address: [address] [place] [address] Performed By: #### 2 4328, , 1988-02 ####[facility] LABORATORYCLIA [id number] [place] [address] [place] AST With P-5'-P [Catalytic activity/Vol] 36 U/L High 13-35 [facility] Comment on above: Order Comment: Speci men Type: BLOOD SPECIMENOrdering Facility: [facility] Address: [address] [place] [address] Performed By: #### 2 4323-8, , 1988-02 ####[facility] LABORATORYCLIA [id number] [place] [address] [place] Bilirubin [Mass/Vol] 2.1 mg/dL High 0.2-1.3 [facility] Comment on above: Order Comment: Speci men Type: BLOOD SPECIMENOrdering Facility: [facility] Address: [address] [place] [address] Performed By: #### 2 4323-8, , 1988-02 ####[facility] LABORATORYCLIA [id number] [place] [address] [place] Calcium [Mass/Vol] 9.6 mg/dL Normal 8.5-10.2 [facility] Comment on above: Order Comment: Speci men Type: BLOOD SPECIMENOrdering Facility: [facility] Address: [address] [place] [address] Performed By: #### 2 4323-8, , 1988-02 ####[facility] GENERAL LABORATORYCLIA [id number] [place] [id number] [place] Chloride [Moles/Vol] 98 mmol/L Normal 98-107 [facility] Comment on above: Order Comment: Speci men Type: BLOOD SPECIMENOrdering Facility: [facility] Address: [address] [place] [address] Performed By: #### 2 432-8, , 1988-02 ####[facility] LABORATORYCLIA [id number] [place] [id number] [place] CO2 [Moles/Vol] 23 mmol/L Normal 22-30 [facility] Comment on above: Order Comment: Speci men Type: BLOOD SPECIMENOrdering Facility: [facility] Address: [address] [place] [address] Performed By: #### 2 4323-8, , 1988-02 ####[facility] LABORATORYCLIA [id number] [place] [id number] [place] Creatinine [Mass/Vol] 0.99 mg/dL High 0.58-0.96 [facility] Comment on above: Order Comment: Speci men Type: BLOOD SPECIMENOrdering Facility: [facility] Address: [address] [place] [address] Performed By: #### 2 4323-8, , 1988-02 ####[facility] LABORATORYCLIA [id number] [place] [id number] [place] Creatinine and Glomerular filtration rate.predicted panel (S/P/Bld) 67 mL/min/1.73m??? Normal >=60 [facility] Comment on above: Order Comment: Speci men Type: BLOOD SPECIMENOrdering Facility: [facility] Address: [address] [place] [id number] Result Comment: Mita mated Glomerular Filtration Rate (eGFR) is calculated using the 2020 CKD-EPI creatinine equation. This equation utilizes serum creatinine, sex, and age as parameters. The creatinine assay has traceable calibration to isotope dilution-mass spectrometry. Refer to KDIGO guidelines for clinical interpretation. In patients with unstable renal function, e.g. those with acute kidney injury, the eGFR may not accurately reflect actual GFR. Performed By: #### 2 4323-8, , 1988-02 ####[facility] LABORATORYCLIA [id number] [place] [id number] [place] Glucose [Mass/Vol] 115 mg/dL High 74-99 [facility] Comment on above: Order Comment: Agatha horner Type: BLOOD SPECIMENOrdering Facility: [facility] Address: [address] [place] [address] Result Comment: The [place] Diabetes Association (ADA) provides guidance for cutoff values for fasting glucose and random glucose. The ADA defines fasting as no caloric intake for at least 8 hours. Fasting plasma glucose results between 100 to 125 mg/dL indicate increased risk for diabetes (prediabetes). Fasting plasma glucose results greater than or equal to 126 mg/dL meet the criteria for diagnosis of diabetes. In the absence of unequivocal hyperglycemia, results should be confirmed by repeat testing. In a patient with classic symptoms of hyperglycemia or hyperglycemic crisis, random plasma glucose results greater than or equal to 200 mg/dL meet the criteria for diagnosis of diabetes. Reference: Standards of Medical Care in Diabetes 2016, [place] Diabetes Association. Diabetes Care. 2016.39(Suppl 1). Performed By: #### 2 4323-8, , 1988-02 ####[facility] LABORATORYCLIA [id number] [place] [phone] [place] Potassium [Moles/Vol] 4.0 mmol/L Normal 3.7-5.1 [facility] Comment on above: Order Comment: Agatha horner Type: BLOOD SPECIMENOrdering Facility: [facility] Address: [address] [place] [id number] Performed By: #### 2 4323-8, , 1988-02 ####[facility] LABORATORYCLIA [id number] [place] [address] [place] Protein [Mass/Vol] 6.7 g/dL Normal 6.3-8.0 [facility] Comment on above: Order Comment: Speci men Type: BLOOD SPECIMENOrdering Facility: [facility] Address: [address] [place] [address] Performed By: #### 2 432-8, , 1988-02 ####[facility] LABORATORYCLIA [id number] [place] [address] [place] Sodium [Moles/Vol] 137 mmol/L Normal 136-144 [facility] Comment on above: Order Comment: Speci men Type: BLOOD SPECIMENOrdering Facility: [facility] Address: [address] [place] [address] Performed By: #### 2 4328, , 1988-02 ####[facility] LABORATORYCLIA [id number] [place] [id number] [place] Urea nitrogen [Mass/Vol] 20 mg/dL Normal 7-21 [facility] Comment on above: Order Comment: Speci men Type: BLOOD SPECIMENOrdering Facility: [facility] Address: [address] [place] [address] Performed By: #### 2 4323-8, , 1988-02 ####[facility] LABORATORYCLIA [id number] [place] [address] [place] Crystals, Body Fluidon 12-15 CRYSTALS/BF Normal [facility] Comment on above: Result Comment: UNAB LE TO PERFORM DUE TO VISCOSITY OF SPECIMEN Performed By: #### L 500.2500, L100.0100 #### [facility] [address] [place], [address] ESR Westergren method (Bld) [Velocity]on 12-15-2024 ESR (Bld) [Velocity] 22 mm/h High 0-20 [facility] Comment on above: Order Comment: Speci men Type: BLOOD SPECIMENOrdering Facility: [facility] Address: [address] [place] [address] Performed By: #### 4 537-7 ####[facility] LABCLIA [id number] [place] [id number] [facility]#### 595[address]-5 ####[facility] [id number] [address] LABCLIA [id number] [address] Emergency Department Summary on 12-15-2024 Emergency Department Summary [facility] Medical Records Department [address] [place] [address] Emergency Department Summary 12/15/24 MR#: [id number] Acct: [id number] Name: MICHELLE HUFFMANJuvencio FELIZ Rep #: [id number] : 1970 54 From: Ajith Chavira MD PCP: ELIZABETH Garcia Status:REG ER Location: ED HPI History of Present Illness Chief Complaint: Other, Pain/Inj Detail of Chief Complaint: Left wrist pain and swelling that started yesterday, history of RA Informant: patient Onset/Context/Timing Onset: Yesterday Context: Sudden Onset Timing: Continuous Quality: Pain Location: Left wrist Current Severity: Moderate Worsened by: Movement of the wrist Relieved by: Nothing Associated Symptoms Associated Symptoms: Diagnosed with influenza A Narrative Narrative: Patient was ill first part of the week. She was seen in urgent care and had a rapid strep that was negative. Today she had a rapid antigen for and was positive for influenza. She states her wrist started hurting yesterday. She was unable to sleep because of the pain. Patient's was placed on 40 mg of steroid a day. Patient denies headache, neck pain or stiffness. She does complain of left shoulder pain and left wrist pain. The wrist pain is much worse. The wrist pain started before the shoulder pain. She does have some mild upper respiratory tract symptoms. She denies no GI symptoms. He has no symptoms. 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 lymph node Breast cancer, right breast Rheumatoid arthritis Home Medications ???Medication ???Instructions ???Recorded ???Last Taken ???Type multivitamin 1 tab PO DAILY 11/29/18 Unknown Hi story anastrozole 1 mg tablet 1 mg PO DAILY 10/13/19 Unknown His tory ferrous sulfate 325 mg (65 mg 325 mg PO DAILY 10/13/19 Unknown H istory iron) tablet leflunomide 10 mg tablet (Arava) 20 mg PO DAILY 12/19/19 Unknown Hi story calcium 500 mg (as 1 ea PO BID 02/21/20 Unknown Histo ry carbonate)-vitamin D3 15 mcg (600 unit) tablet certolizumab pegol 400 mg/2 mL 200 mg subcut Q2W 12/31/20 Unknown History (200 mg/mL x2) subcutaneous syringe kit (Cimzia) hydroxychloroquine 200 mg tablet 200 mg PO BID 07/09/21 Unknown His tory hydrocortisone 2.5 % topical 1 applic topical BID #28.35 grams 01/25/24 Unknown Rx ointment Allergy/AdvReac Type Severity Reaction Status Date / Time No Known Allergies Allergy Verified 12/15/24 19:45 Family History Son Diabetes Grandfather Heart disease Mother Cancer possible throat cancer (Went through radiation) Father Cancer lung Surgical History S/P bilateral salpingo-oophorectomy S/P breast reconstruction S/P bilateral mastectomy Status post right breast lumpectomy ( 12/2018) History of tonsillectomy Social History household members: none housing: apartment current occupational status: employed Smoking Status: Never smoker alcohol intake: current alcohol intake frequency: holidays/special occasions only substance use type: does not use caffeine: Yes what type of physical activity do you participate in: walking and aerobics frequency: 5-6 times per week seatbelt use: always do you feel safe at home: Yes additional social history: Patient works at [employer], home ROS ROS ED Constitutional Constitutional ED: Reports fever(s) and subjective; Denies chills or sweats Eyes Eyes: Denies blurry vision, change in vision or diplopia ENT ENT ED: Reports sore throat; Denies ear pain or rhinorrhea Cardiovascular Cardiovascular: Denies chest pain or palpitations Respiratory/Chest Respiratory/Chest: Reports cough; Denies dyspnea, dyspnea on exertion or sputum Gastrointestinal Gastrointestinal: Denies abdominal pain, constipation, nausea or vomiting Genitourinary Genitourinary ED: Denies dysuria, hematuria or urinary frequency Musculoskeletal Musculoskeletal: Reports other Details: Left wrist pain and swelling in left shoulder pain ; Denies arthralgias or myalgias Integumentary Reports rash Hematologic/Lymphatic Hematologic/Lymphatic: Reports systems reviewed and no addt'l complaints, except as documented EXAM Physical Exam Const Vital Signs: 12/15/24 19:45 12/15/24 20:00 Temperature 97.2 F L Temperature Source Temporal Pulse Rate 102 H Respiratory Rate 17 Respiratory Effort Normal Non-Labored Respiratory Pattern Normal Blood Pressure 96/70 Blood Pressure Mean 78 Pulse Ox 99 Oxygen Delivery Method Room Air (more content not included)... Normal [facility] Erythrocyte Sed Rateon 12-15 SED RATE 59 mm/hr High 0-30 [facility] Comment on above: Performed By: #### L 501.6710, L100.0100, L500.2500, L101.9900 #### [facility] [address] [facility] [place], [address] Erythrocyte sedimentation ra teOrdered By: Ajith Chavira on 12-15-2024 ESR (Bld) [Velocity] 59 mm/h High 0-30 [facility] Extremity Upper without Cont raon 12-15-2024 Extremity Upper without Contra [facility] Imaging Services [address] [address] Extremity Upper without Contra MR#: [id number] Acct: [id number] Name: BECKY HUFFMAN Rep #: [id number] : 1970 F 54 From: Travis Araya MD PCP: ELIZABETH Garcia Status: ADM IN Study: Extremity Upper without Contra Date of Exam: 0 12/15/24 Exam# [id number] Ordering Dr: Ajith Chavira MD PROCEDURE: EXTREMITY UPPER WITHOUT CONTRA REASON FOR EXAM: Pain, evaluate fluid, septic joint TECHNIQUE: CT of the left shoulder without contrast with coronal and sagittal reformatted images COMPARISON: None. FINDINGS: No evidence of glenohumeral joint or acromioclavicular joint effusion identified by CT. There appears to be edema at the deltoid and rotator cuff with subcutaneous soft tissue stranding anterior to the biceps muscle and lower aspect of the deltoid muscle for example axial 70. Findings may be inflammatory or infectious. No soft tissue gas or focal fluid collection. No osseous destruction or periosteal reaction. No fracture or dislocation. The visualized left lung appears clear. CT/Extremity Upper without Contra IMPRESSION: No evidence of glenohumeral joint or acromioclavicular joint effusion identified by CT. There appears to be edema at the deltoid and rotator cuff with subcutaneous soft tissue stranding anterior to the biceps muscle and lower aspect of the deltoid muscle for example axial 70. Findings may be inflammatory or infectious. No soft tissue gas or focal fluid collection One or more dose reduction techniques were used (e.g., Automated exposure control, adjustment of the mA and/or kV according to patient size, use of iterative reconstruction technique). Reading Location: [facility] CC: PIN CHASER-C Becky Ireland; Dr. Ajith Chavira MD Tourist Adviser: Signed Normal [facility] Gram stainOrdered By: Ajith de jesus on 12-15-2024 Microscopic observation Gram stain Nom (Unsp spec) [facility] H AND P Exam - Hospital[facility] 12-15-2024 H&P Exam - Hospitalist [facility] Medical Records Department [address] [place] [address] H P Exam - Hospitalist 12/15/248 MR#: [id number] Acct: [id number] Name: BECKY HUFFMAN Rep #: [id number] : 1970 54 From: Mauricio Pavon DO PCP: ELIZABETH Garcia Status:ADM IN Location: MS3 [id number] HPI - General General Date of Admission: 12/15/24 Date of Service: 12/15/24 Chief Complaint: Left Wrist Infection with Septic Arthritis. HPI Narrative BECKY HUFFMAN, is a 54 F with a past medical history of RA; on leflunomide, hydroxychloroquine twice daily, and certolizumab q. 2 weeks, history of Right-sided Breast Cancer (2018); with metastases to axillary lymph node s/p bilateral mastectomy (2019) with reconstruction and BRCA gene positive on anastrozole, history of bilateral salpingo-oophorectomy, and OA who presents to [facility] ER complaining of Left wrist pain and swelling. Ms. Huffman reports her symptoms began approximately 4 days prior to admission when she developed symptoms of a viral URI with subsequent visit to urgent care and diagnosis of Influenza A with negative rapid strep test. She then began to develop increasing pain and swelling of her Left wrist that caused her to be unable to sleep so she decided to come in for further evaluation and treatment. She denies associated fever, chills, nausea, vomiting, diarrhea, constipation, abdominal pain, chest pain, shortness of breath or headache. In the ER she underwent arthrocentesis of the Left wrist which returned purulent green material consistent with Septic Arthritis in the setting of Immune Suppressed Status with drugs used to treat RA and she was then admitted to the general medical floor for ongoing care for a stay that is expected to extend beyond 2 midnights. [facility] Medical History BRCA gene positive Breast cancer metastasized to axillary lymph node Breast cancer, right breast Rheumatoid arthritis Home Medications ???Medication ???Instructions ???Recorded ???Last Taken ???Type multivitamin 1 tab PO DAILY general health 11/19 11/06 Unknown History anastrozole 1 mg tablet 1 mg PO DAILY arthritis 10/13/19 U nknown History ferrous sulfate 325 mg (65 mg 325 mg PO DAILY anemia 10/13/19 Un known History iron) tablet leflunomide 10 mg tablet (Arava) 20 mg PO DAILY arthritis 12/19/19 Unknown History calcium 500 mg (as 1 ea PO BID def. 02/21/20 Unknown History carbonate)-vitamin D3 15 mcg (600 unit) tablet certolizumab pegol 400 mg/2 mL 200 mg subcut Q2W arthritis Unknown History (200 mg/mL x2) subcutaneous syringe kit (Cimzia) hydroxychloroquine 200 mg tablet 200 mg PO BID arthritis 07/09/21 U nknown History hydrocortisone 2.5 % topical 1 applic topical BID PRN perineal 12/15/24 Unknown History ointment area leflunomide 20 mg tablet 20 mg PO DAILY arthritis 12/15/24 Unknown History prednisone 10 mg tablet 20 mg PO BID swollen neck 12/15/24 Unknown History prednisone 20 mg tablet 20 mg PO BID swollen neck 12/15/24 Unknown History Allergy/AdvReac Type Severity Reaction Status Date / Time No Known Allergies Allergy Verified 12/15/24 19:45 Family History Son Diabetes Grandfather Heart disease Mother Cancer possible throat cancer (Went through radiation) Father Cancer lung Surgical History S/P bilateral salpingo-oophorectomy S/P breast reconstruction S/P bilateral mastectomy Status post right breast lumpectomy ( 12/2018) History of tonsillectomy Social History household members: none housing: apartment current occupational status: employed Smoking Status: Never smoker alcohol intake: current alcohol intake frequency: holidays/special occasions only substance use type: does not use caffeine: Yes what type of physical activity do you participate in: walking and aerobics frequency: 5-6 times per week seatbelt use: always do you feel safe at home: Yes additional social history: Patient works at [employer], [employer] home ROS ROS Narrative Review of Systems: Constitutional: Patient denies fever or chills. Eyes: Patient denies changes in vision or discharge from eyes. ENT: Patient denies runny nose, sore throat or ear pain. Resp: Patient denies shortness of breath or cough. CV: Patient denies chest pain, palpitations, heart racing or lower extremity edema. GI: Patient denies abdominal pain, nausea, vomiting, diarrhea or constipation. : Patient denies dysuria or hematuria. MSK: Patient admits to severe pain and swelling of the Left wrist as per HPI. Skin: Patient denies rash. Psych: Neena (more content not included)... Normal [facility] LACTATE DEHYDROGENASEon 11-20 LDH [Catalytic activity/Vol] 305 U/L High 135 - 214 U/L [facility] LDH SerPl-cCncon 12-15-2024 LDH [Catalytic activity/Vol] 305 U/L High 135-214 [facility] Comment on above: Order Comment: Speci men Type: BLOOD SPECIMENOrdering Facility: [facility] Address: [address] [place] [address] Performed By: #### 2 4323-8, 2530, 1988-02 ####[facility]ORATORYCLIA [id number] [place] [address] [facility] Laboratory - Hematology and Cell countsOrdered By: Ajith Chavira on 12-15-2024 Anisocytosis Ql (Bld) 1+ [facility] Magnesiumon 12-15-2024 Magnesium [Mass/Vol] 1.8 mg/dL Normal 1.5-2.2 [facility] Comment on above: Performed By: #### L 500.2500, L100.0100 #### [facility] [address] [place], [place], [id number] Magnesium (Unsp spec) [Mass/ Vol]Ordered By: Mauricio Sylvester on 12-15-2024 Magnesium [Mass/Vol] 1.8 mg/dL 1.5-2.2 [facility] Manual differential comment Mark (Bld) [Interp]Ordered By: Ajith Chavira on 12-15-2024 Differential Comment See comment [facility] Comment on above: 1+ BANDS NOTED Neutrophils.vacuolated LM Ql (Bld)Ordered By: Ajith Chavira on 12-15-2024 Toxic Vacuolation 2+ [facility] No Panel Informationon 12-15 Interpretation and review of laboratory results Abnormal [facility] Radiology Study observation (narrative) [facility] Ovalocytes LM Ql (Bld)Ordere d By: Ajith Chavira on 12-15-2024 Ovalocytes 1+ [facility] Platelets LM Ql (Bld)Ordered By: Ajith Chavira on 12-15-2024 Platelet Estimate ADEQUATE ADEQ [facility] Polychromasia LM Ql (Bld)Ord ered By: Ajith Chavira on 12-15-2024 Polychromasia 1+ [facility] Schistocytes LM Ql (Bld)Orde red By: Ajith Chavira on 12-15-2024 Schistocytes RARE [facility] Target cells LM Ql (Bld)Orde red By: Ajith Chavira on 12-15-2024 Target Cells RARE [facility] Toxic granules LM Ql (Bld)Or dered By: Ajith Chavira on 12-15-2024 Toxic Granulation 1+ [facility] US HEAD/NECK SOFT TISSUE OTH Kahlil 12-15-2024 US HEAD/NECK SOFT TISSUE OTHER * * *Final Report* * * DATE OF EXAM: Dec 15 2024 3:28PM [facility] 1052 - US HEAD/NECK SOFT TISSUE OTHER / PROCEDURE REASON: multiple diagnoses * * * * Physician Interpretation * * * * US HEAD/NECK SOFT TISSUE OTHER EXAM DATE/TIME: 12/15/2024 3:28 PM CLINICAL HISTORY: Sore throat and dysphagia. COMPARISON: None. TECHNIQUE: Sonography of the bilateral neck soft tissue was performed. Images were obtained and stored in a permanent archive. FINDINGS AND IMPRESSION: The bilateral neck soft tissue was scanned in images. A few prominent lymph nodes with fatty idalia seen in the anterior mid left neck, measuring 1.2 x 1.5 x 1.3 cm and 0.8 x 1.7 x 0.4 cm. Unremarkable right anterior neck soft tissue. Tourist Adviser: PSCB Transcribe Date/Time: Dec 15 2024 3:32P Dictated by : ASTRID LEYVA MD This examination was interpreted and the report reviewed and electronically signed by: ASTRID LEYVA MD on Dec 15 2024 3:35PM EST [id number] Normal [facility] US Head and neck soft tissue on 12-15-2024 IMPRESSION: The bilateral neck soft tissue was scanned in images. A few prominent lymph nodes with fatty idalia seen in the anterior mid left neck, measuring 1.2 x 1.5 x 1.3 cm and 0.8 x 1.7 x 0.4 cm. Unremarkable right anterior neck soft tissue. Tourist Adviser: JAEL Transcribe Date/Time: Dec 15 2024 3:32P Dictated by : ASTRID LEYVA MD This examination was interpreted and the report reviewed and electronically signed by: ASTRID LEYVA MD on Dec 15 2024 3:35PM [facility] DIVISION OF RADIOLOGY * * *Final Report* * * DATE OF EXAM: Dec 15 2024 3:28PM [facility] 1052 - US HEAD/NECK SOFT TISSUE OTHER / PROCEDURE REASON: multiple diagnoses * * * * Physician Interpretation * * * * US HEAD/NECK SOFT TISSUE OTHER EXAM DATE/TIME: 12/15/2024 3:28 PM CLINICAL HISTORY: Sore throat and dysphagia. COMPARISON: None. TECHNIQUE: Sonography of the bilateral neck soft tissue was performed. Images were obtained and stored in a permanent archive. FINDINGS AND DIVISION OF RADIOLOGY Provider, [facility] - 12/15/2024 * * *Final Report* * * DATE OF EXAM: Dec 15 2024 3:28PM [facility] 1052 - US HEAD/NECK SOFT TISSUE OTHER / PROCEDURE REASON: multiple diagnoses * * * * Physician Interpretation * * * * US HEAD/NECK SOFT TISSUE OTHER EXAM DATE/TIME: 12/15/2024 3:28 PM CLINICAL HISTORY: Sore throat and dysphagia. COMPARISON: None. TECHNIQUE: Sonography of the bilateral neck soft tissue was performed. Images were obtained and stored in a permanent archive. FINDINGS AND IMPRESSION IMPRESSION: The bilateral neck soft tissue was scanned in images. A few prominent lymph nodes with fatty idalia seen in the anterior mid left neck, measuring 1.2 x 1.5 x 1.3 cm and 0.8 x 1.7 x 0.4 cm. Unremarkable right anterior neck soft tissue. Tourist Adviser: JAEL Transcribe Date/Time: Dec 15 2024 3:32P Dictated by : ASTRID LEYVA MD This examination was interpreted and the report reviewed and electronically signed by: ASTRID LEYVA MD on Dec 15 2024 3:35PM [facility] US Head and neck soft tissue Ordered By: [facility] Provider on 12-15-2024 [facility] US THYROID/PARATHYROIDon US THYROID/PARATHYROID * * *Final Report * * * DATE OF EXAM: Dec 15 2024 3:28PM [facility] 1048 - US THYROID/PARATHYROID / PROCEDURE REASON: multiple diagnoses * * * * Physician Interpretation * * * * ULTRASOUND OF THE THYROID GLAND HISTORY: Sore throat Lymphadenopathy Oropharyngeal dysphagia History of breast cancer TECHNIQUE: Ultrasound of the thyroid gland. Grayscale and color Doppler images. Images were obtained and stored in a permanent archive. COMPARISON: Same day head/neck ultrasound. RESULT: The thyroid gland is normal size. Right Lobe: 4.2 cm x 1.3 cm x 1.8 cm Left Lobe: 3.6 cm x 1.2 cm x 1.1 cm Isthmus: 0.2 cm Parenchyma: The parenchyma is homogeneous. Thyroid nodules: None - IMPRESSION: No abnormality is identified. Tourist Adviser: JAEL Transcribe Date/Time: Dec 18 2024 5:57A Dictated by : DANNY BLAND MD This examination was interpreted and the report reviewed and electronically signed by: DANNY BLAND MD on Dec 18 2024 6:00AM EST [id number] Normal [facility] Wrist min 3 Viewson 12-15-19 Wrist min 3 Views [facility] Imaging Services [address] [place] [id number] Wrist min 3 Views MR#: [id number] Acct: [id number] Name: BECKY HUFFMAN Rep #: [id number] : 1970 F 54 From: Travis Araya MD PCP: ELIZABETH Garcia Status: REG ER Study: Wrist min 3 Views Date of Exam: 12/15/24 Exam# [id number] Ordering Dr: Ajith Chavira MD PROCEDURE: WRIST MIN 3 VIEWS REASON FOR EXAM: Pain, injury TECHNIQUE: 3 view(s) of the left wrist COMPARISON: None. FINDINGS: LEFT WRIST: No fracture or dislocation. Soft tissue swelling about the wrist most notably about the ulnar styloid, anatomic snuffbox and dorsal wrist. Periosteal new bone formation at the ulnar styloid with note of osteoarthrosis at the proximal carpal row and 1st carpometacarpal joint. RAD/Wrist min 3 Views IMPRESSION: No fracture or dislocation. Soft tissue swelling about the wrist as above. Changes of osteoarthrosis as above. Reading Location: [id number] CC: ELIZABETH Ireland; Dr. Ajith Chavira MD Tourist Adviser: Signed Normal [facility] XR CHEST 2V FRONTAL/LATon XR CHEST 2V FRONTAL/LAT * * *Final Repor t* * * DATE OF EXAM: Dec 15 2024 10:51AM WOX [id number] - XR CHEST 2V FRONTAL/LAT / PROCEDURE REASON: multiple diagnoses * * * * Physician Interpretation * * * * EXAM TITLE: XR CHEST 2V FRONTAL/LAT EXAM DATE/TIME: 12/15/2024 10:51 AM COMPARISON: None. CLINICAL INDICATION/HISTORY: Lymphadenopathy RESULT: Lines, tubes, and devices: None. Lungs and pleura: No consolidation. No lung mass. No pleural effusion or pneumothorax. Cardiomediastinal silhouette: Normal cardiomediastinal silhouette. Other: There are multiple surgical clips. IMPRESSION: No acute radiographic abnormality. Tourist Adviser: JAEL Transcribe Date/Time: Dec 15 2024 10:50A Dictated by : ASTRID LEYVA MD This examination was interpreted and the report reviewed and electronically signed by: ASTRID LEYVA MD on Dec 15 2024 10:51AM EST [id number] Normal [facility] XR Chest PA and Lateralon IMPRESSION: No acute radiographic abnormality. Tourist Adviser: [facility] Transcribe Date/Time: Dec 15 2024 10:50A Dictated by : ASTRID LEYVA MD This examination was interpreted and the report reviewed and electronically signed by: ASTRID LEYVA MD on Dec 15 2024 10:51AM EST DIVISION OF RADIOLOGY * * *Final Report* * * DATE OF EXAM: Dec 15 2024 10:51AM WOX [id number] - XR CHEST 2V FRONTAL/LAT / PROCEDURE REASON: multiple diagnoses * * * * Physician Interpretation * * * * EXAM TITLE: XR CHEST 2V FRONTAL/LAT EXAM DATE/TIME: 12/15/2024 10:51 AM COMPARISON: None. CLINICAL INDICATION/HISTORY: Lymphadenopathy RESULT: Lines, tubes, and devices: None. Lungs and pleura: No consolidation. No lung mass. No pleural effusion or pneumothorax. Cardiomediastinal silhouette: Normal cardiomediastinal silhouette. Other: There are multiple surgical clips. DIVISION OF RADIOLOGY Provider, Feli Lezama [facility] - 12/15/2024 * * *Final Report* * * DATE OF EXAM: Dec 15 2024 10:51AM WOX 5291 - XR CHEST 2V FRONTAL/LAT / PROCEDURE REASON: multiple diagnoses * * * * Physician Interpretation * * * * EXAM TITLE: XR CHEST 2V FRONTAL/LAT EXAM DATE/TIME: 12/15/2024 10:51 AM COMPARISON: None. CLINICAL INDICATION/HISTORY: Lymphadenopathy RESULT: Lines, tubes, and devices: None. Lungs and pleura: No consolidation. No lung mass. No pleural effusion or pneumothorax. Cardiomediastinal silhouette: Normal cardiomediastinal silhouette. Other: There are multiple surgical clips. IMPRESSION IMPRESSION: No acute radiographic abnormality. Tourist Adviser: PSCB Transcribe Date/Time: Dec 15 2024 10:50A Dictated by : ASTRID LEYVA MD This examination was interpreted and the report reviewed and electronically signed by: ASTRID LEYVA MD on Dec 15 2024 10:51AM EST [facility] Radiology Study [facility]narrative) [facility] X[facility] Chest PA and LateralOrder ed By: [facility] Provider on 12-15-2024 [facility] Lizette [facility] B[facility] HUFFMAN ([id number]) 1970 F Date Time Provider Department 12/14/24 BECKY IRELAND During your visit today, we recorded the following information about you: Shu Chavez, RN 12/14/2024 9:11 AM Signed Pt was seen in [facility] on Thursday AM for sore throat-negative for strep. Pt states on 11/23/24, she tested positive for Influenza A. She had been feeling better but was sure she had strept throat this time. Pt is still running a fever anywhere from 100-102 degrees. She was prescribed Prednisone which she feels is helping. But she states she is having a very hard time with muscle and body aches. She has been taking Ibuprofen every 4 hours. She is asking if there is anything else she can be taking to help. Has not taken any cold medicine or Tylenol yet. Pt states she does have arthritis too which doesn't help. She also has not been able to eat much-she is swallowing better but no appetite. Spoke with pt about chicken broth and soaking crackers in it, jello, pudding, yogurt, oatmeal. Any soft foods. Pt will try that but just asking what else she can take? Becky Ireland APRN.RAY 12/14/2024 12:20 PM Signed If she is not feeling any better, she should consider returning for a recheck, as she is on medication that lowers her immune system. She certainly can add on tylenol and OTC medication, such as mucinex. Becky Ireland APRN.[place] LPN 12/14/2024 1:09 PM Signed Pt notified. She verbalized understanding. Castro Hall LPN Allergies As of Date: 12/14/2024 (No Known Allergies) Date Reviewed: 12/12/2024 Reviewed by: Jessica Tobar MA - Fully Assessed Reason for Visit: Patient Update [1234] Patient Question [7947] Prescriptions as of 12/14/2024 - predniSONE (DELTASONE) 20 mg tablet Take 1 tablet by mouth two times a day for 5 days. - benzonatate (TESSALON PERLE) 100 mg capsule Take 1 capsule by mouth three times a day as needed for cough for up to 7 days. - anastrozole (ARIMIDEX) 1 mg tablet Take 1 tablet by mouth once daily. - hydrOXYchloroQUINE (PLAQUENIL) 200 mg tablet Take 200 mg by mouth once daily. - cholecalciferol, vitamin D3, (VITAMIN D3 ORAL) Take 2,000 Units by mouth once daily. - certolizumab pegol (CIMZIA SUBCUTANEOUS) Inject 200 mg subcutaneously. Twice a month - calcium carbonate/vitamin D3 (CALCIUM 600 + D ORAL) Take 1 tablet by mouth once daily. - leflunomide (ARAVA) 20 mg tablet Take 20 mg by mouth once daily. - ferrous sulfate 325 mg (65 mg iron) tablet Take 325 mg by mouth once daily. - DAILY MULTIVITAMIN TAB Take 1 tablet by mouth once daily. Problem List As Of Date 12/14/2024 Noted Resolved Climacteric [N95.1] 12/16/2013 Malignant neoplasm of central portion of right *12/23/2018 Rheumatoid arthritis involving multiple sites (*05/20/2021 Encounter Status:Closed by CASTRO HALL on 12/14/24 [facility]12[facility] CNOV Office Visit (UCWSTR ) YESENIABECKY ([id number]) 1970 F Date Time Provider Department 12/12/24 7:15 AM TERESITA [facility] During your visit today, we recorded the following information about you: Temperature Pulse Respiration Blood pressure 100.5 degrees 114/minute 16/minute 108/64 Weight 67.2 kg Teresita Marsh PA-C 12/12/2024 7:45 AM Signed This note was created using [facility]. Subjective Becky Huffman is a 54 year old female. Patient is a 54-year-old female who complains of sore throat that she has been experiencing for the past 2 days. Patient also states she noted a fever as well as body aches. Patient states that she did contract influenza type A on 23 November 2024 and states that her symptoms did improve, however she is concerned that she is again developing influenza. Patient reports mild congestion but denies sinus pressure or ear pain and describes only a mild cough. 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 Sore Throat Review of Systems Constitutional: Positive for fever. HENT: Positive for sore throat. All other systems reviewed and are negative. Objective BP 108/64 Pulse 114 Temp (!) 38.1 ?C (100.5 ?F) Resp 16 Wt 67.2 kg (148 lb 2.4 oz) LMP 12/04/2016 SpO2 98% BMI 23.95 kg/m? Physical Exam Vitals and nursing note reviewed. Constitutional: Appearance: Normal appearance. She is normal weight. HENT: Head: Normocephalic and atraumatic. Right Ear: Tympanic membrane, ear canal and external ear normal. Left Ear: Tympanic membrane, ear canal and external ear normal. Nose: Nose normal. Mouth/Throat: Mouth: Mucous membranes are moist. Pharynx: Oropharynx is clear. Eyes: Extraocular Movements: Extraocular movements intact. Conjunctiva/sclera: Conjunctivae normal. Pupils: Pupils are equal, round, and reactive to light. Cardiovascular: Rate and Rhythm: Normal rate and regular rhythm. Pulses: Normal pulses. Heart sounds: Normal heart sounds. Pulmonary: Effort: Pulmonary effort is normal. Breath sounds: Normal breath sounds. Musculoskeletal: Cervical back: Normal range of motion and neck supple. Skin: General: Skin is warm and dry. Capillary Refill: Capillary refill takes less than 2 seconds. Neurological: General: No focal deficit present. Mental Status: She is alert and oriented to person, place, and time. Psychiatric: Mood and Affect: Mood normal. Behavior: Behavior normal. Thought Content: Thought content normal. Judgment: Judgment normal. Assessment and Plan Fully unremarkable physical exam findings as noted above. Rapid strep test is negative. Patient was provided with prescriptions for prednisone 20 mg and Tessalon 100 mg. Patient was advised that as she works at a daycare, she is exposed to multiple influenza-like viruses. Supportive care was discussed and the patient verbalizes good understanding of same. CLINICAL IMPRESSION: Acute Pharyngitis; Acute Laryngitis; Viral Illness ASSESSMENT/PLAN: 1. Sore throat - ICD9: 462, ICD10: J02.9 (primary diagnosis) - STREP A MOLECULAR (POC) 2. Acute pharyngitis, unspecified etiology - ICD9: 462, ICD10: J02.9 - BENZONATATE 100 MG CAPSULE 3. Acute laryngitis - ICD9: 464.00, ICD10: J04.0 - PREDNISONE 20 MG TABLET Teresita Marsh PA-C Allergies As of Date: 12/12/2024 (No Known Allergies) Date Reviewed: 12/12/2024 Reviewed by: Jessica Tobar MA - Fully Assessed Reason for Visit: Sore Throat [200] Cmt: congestion, headache and fever x 2 days Primary Visit Diagnosis:Sore throat [J02.9] Other Visit Diagnoses:Acute pharyngitis, unspecified etiology [J02.9] Acute laryngitis [J04.0] Order(s):STREP A MOLECULAR (POC) [2301706] Order #: [id number]. #:[id number] predniSONE (DELTASONE) 20 mg tabletTake 1 tablet by mouth two times a day for 5 days.Disp: 10 tabletRfl: 0 benzonatate (TESSALON PERLE) 100 mg capsuleTake 1 capsule by mouth three times a day as needed for cough for up to 7 days.Disp: 21 capsuleRfl: 0 Prescriptions as of 12/12/2024 - predniSONE (DELTASONE) 20 mg tablet Take 1 tablet by mouth two times a day for 5 days. - benzonatate (TESSALON PERLE) 100 mg capsule Take 1 capsule by mouth three times a day as needed for cough for up to 7 days. - anastrozole (ARIMIDEX) 1 mg tablet Take 1 tablet by mouth once daily. - hydrOXYchloroQUINE (PLAQUENIL) 200 mg tablet Take 200 mg by mouth once daily. - cholecalciferol, vitamin D3, (VITAMIN D3 ORAL) Take 2,000 Units by mouth once daily. - certolizumab pegol (CIMZIA SUBCUTANEOUS) Inject 200 mg subcutaneously. Twice a month - calcium carbonate/vitamin D3 (CALCIUM 600 + D ORAL) Take 1 tablet by mouth once daily. - leflunomide (ARAVA) 20 mg tablet Take 20 mg by mouth once daily. - ferrous sulfate 325 mg (65 mg iron) tablet Take 325 mg by mouth once daily. - DAILY MULTIVITAMIN TAB Take 1 table (more content not included)... Normal [facility] STREP A MOLECULAR (POC)on Procedural Control Valid [facility] Strep A (POCT) Negative Negative [facility] CNOVSPon 11-28-2024 CNOVSP Visit (SP) Office (HEMAWS) BECKY HUFFMAN ([id number]) 1970 F Date Time Provider Department 11/28/24 9:00 AM ADELINA LUIS During your visit today, we recorded the following information about you: Temperature Pulse Blood pressure Weight 98.8 degrees 67/minute 127/87 66.5 kg Adelina Luis APRN.ATMOSPHERIC CHEMIST 11/28/2024 9:32 AM Signed Chief Complaint Patient presents with: Established Patient HPI: Becky Huffman is a 54 year old female who presents here today for follow up breast cancer. Per Dr. Stockton's previous note: H/o rheumatoid arthritis. She appreciated all hard lump in her right breast. US 12/06/2018: The palpable abnormality corresponds to a 6 mm x 12 mm x 12 mm irregular hypoechoic solid nodule. 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 ER (clone 6F11) >95%, moderate AZ (clone 16/1E2) 24%, weak Her-2Neu (clone CB11) 2+ ADDENDUM IN SITU HYBRIDIZATION (LEIDY) FOR HER2 Interpretation: Not Amplified HER2 : CEP-17 Ratio: 1.3 Average HER2 Signal: 2.1 Average CEP-17 Signal: 1.65 Number of Tumor Cells Scanned: 50 MRI breast 12/21/2018: No MRI evidence of malignancy in left breast. The 1.9 cm x 1.8 cm x 1.8 cm irregular mass in the right breast upper outer aspect anterior depth is a known biopsy positive for malignancy. The 4 mm mass in the right breast upper outer aspect middle depth is consistent with a lymph node and is benign. Last menses ~2 years ago. Had some hot flashes. Mother--Throat cancer. RA--Diagnosed ~10 years ago. Initially manifested as bilateral knee swelling. She has been on various treatments over the last 10 years. She will have flares of joint pain predominantly in the wrists and hands when she's been working. Underwent partial mastectomy with sentinel lymph node biopsy followed by axillary dissection on 12/28/2018. Pathology: FROZEN SECTION DIAGNOSIS A. Right axillary sentinel lymph nodes, biopsy: Two out of two lymph nodes positive for macrometastatic carcinoma. MICROSCOPIC DIAGNOSIS A. Right axillary lymph nodes, biopsy: Two out of two lymph nodes, positive for metastatic carcinoma. See comment. B. 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 See cancer summary below. C. Right axillary dissection: Three out of eight lymph nodes, positive for metastatic carcinoma. See comment. D. Re-excision inferior margin: Negative for carcinoma. INVASIVE BREAST CANCER SUMMARY: (Including specimens A to D) Specimen - partial breast Procedure - excision with wire-guided localization Lymph node sampling - sentinel lymph node and axillary dissection Specimen integrity - multiple designated specimens (specimen B AND D) Specimen size - lumpectomy specimen 4.5 x 3.5 x 3 cm Re-excision inferior margin - 5 x 3 x 1 cm Specimen laterality - right Tumor site - central portion of the right breast as per clinical information. Tumor size - 1.5 x 1.5 x 1.2 cm Tumor focality - single focus of invasive carcinoma Macroscopic and Microscopic extent of tumor: Skin - not present Nipple - not applicable Skeletal muscle - not present Ductal carcinoma in situ (DCIS) - no DCIS is present. Lobular carcinoma in situ (LCIS) - present Histologic type of invasive carcinoma - invasive carcinoma with ductal and lobular features (mixed type carcinoma). Histologic Grade ([place] grade): Glandular/tubular differentiation - score 3 Nuclear pleomorphism - score 3 Mitotic count - score 1 Overall grade - 2 (score of 7) Margins - Margins uninvolved by invasive carcinoma. The invasive carcinoma and lobular carcinoma in situ is 0.2 cm away from the inferior margin in lumpectomy specimen. Re-excision inferior margin measures 1 cm in thickness, overall the tumor is about 1.2 away from the inferior margin. The invasive carcinoma and lobular carcinoma in situ is 0.1 cm away from the anterior margin in lumpectomy specimen. Treatment effect: Response to presurgical (neoadjuvant) therapy - no known presurgical therapy. Lymph-Vascular invasion - not identified Dermal lymph-vascular invasion - not applicable Lymph nodes: Number of sentinel lymph nodes examined - 2 Total number of lymph nodes examined (sentinel and nonsentinel) - 10 Number of lymph nodes with macrometastases - 5 Number of lymph nodes with micrometastases and isolated tumor cells - 0 Size of largest metastatic deposit - 1.1 x 1.0 cm (measured microscopically). Extranodal extension - present, focal Method of evaluation of sentinel lymph nodes - H AND E and multiple levels. Distant metastasis - not applicable Additional pathologic findings - extensive dense fibro (more content not included)... Normal [facility] CNOVon 11-23-2024 CNOV Office Visit (UCWSTR ) BECKY HUFFMAN ([id number]) 1970 F Date Time Provider Department 11/23/24 7:15 AM LIT MCMULLEN [facility] During your visit today, we recorded the following information about you: Temperature Pulse Respiration Blood pressure 98.6 degrees 84/minute 16/minute 118/70 Weight 66.5 kg Lit Mcmullen APRN.ATMOSPHERIC CHEMIST 11/23/2024 9:56 AM Signed Subjective HPI HPI Becky Huffman is a 54 year old female who presents today for CC of cough, st, fever. This started 1 day ago. Has tried otc medication for relief. Symptoms are worsened by nothing. Risk factors sick exposures at work. .Patient presents with: Sinus Problem: sinus pressure, drainage, chills, low grade fever x 3 days PAST MEDICAL HISTORY Diagnosis Date Breast cancer (HCC) 2019 PMH - PAST MEDICAL HISTORY OF FATIGUE PMH - PAST MEDICAL HISTORY OF achy joints Premenstrual tension syndromes PMS Rheumatoid arthritis involving multiple sites (HCC) 05/20/2021 Rheumatoid arthritis(714.0) PAST SURGICAL HISTORY Procedure Laterality Date COLONOSCOPY, COLORECTAL SCREEN 10/17/2019 Dr. Travis Elias, [facility]; 4mm sessile polyp in proximal sigmoid colon, many diverticula in sigmoid colon, repeat in 5yr's MASTECTOMY HX Bilateral 2019 with tissue flap reconstruction PAST SURGICAL HISTORY OF Right 12/28/2018 lumpectomy PROVIDE CHEMOTHERAPY AGENT 2019 RADIATION THERAPY 2019 REMOVAL OF OVARY(S) Bilateral 02/2020 SALPINGECTOMY Bilateral 02/2020 TONSILLECTOMY PRIMARY/SECONDARY Tonsillectomy ALLERGIES Patient has no known allergies. MEDICATIONS anastrozole (ARIMIDEX) 1 mg tablet Take 1 tablet by mouth once daily. hydrOXYchloroQUINE (PLAQUENIL) 200 mg tablet Take 200 mg by mouth once daily. cholecalciferol, vitamin D3, (VITAMIN D3 ORAL) Take 2,000 Units by mouth once daily. certolizumab pegol (CIMZIA SUBCUTANEOUS) Inject 200 mg subcutaneously. Twice a month calcium carbonate/vitamin D3 (CALCIUM 600 + D ORAL) Take 1 tablet by mouth once daily. leflunomide (ARAVA) 20 mg tablet Take 20 mg by mouth once daily. ferrous sulfate 325 mg (65 mg iron) tablet Take 325 mg by mouth once daily. DAILY MULTIVITAMIN TAB Take 1 tablet by mouth once daily. FAMILY HISTORY Problem Relation Age of Onset Cancer Mother throat - radiation Cancer Father LUNG Hypertension Brother Diabetes Brother type 2 Hypertension Brother other (CHF) Maternal Grandfather Hypertension Paternal Grandfather Heart Paternal Grandfather No Known Problems Daughter Diabetes Son Type 1 Cancer Other Cancer Other Social History Tobacco Use Smoking status: Never Smokeless tobacco: Never Vaping Use Vaping status: Never Used Substance Use Topics Alcohol use: No Drug use: No Review of Systems Constitutional: Positive for chills, fever and malaise/fatigue. HENT: Positive for congestion and sore throat. Negative for ear pain and nosebleeds. Respiratory: Positive for cough. Negative for shortness of breath and wheezing. Musculoskeletal: Negative for neck pain. Skin: Negative for itching and rash. Objective Blood pressure 118/70, pulse 84, temperature 37 ?C (98.6 ?F), resp. rate 16, weight 66.5 kg (146 lb 9.7 oz), last menstrual period 12/04/2016, SpO2 97%. Physical Exam Constitutional: General: She is not in acute distress. Appearance: She is not toxic-appearing or diaphoretic. HENT: Head: Normocephalic and atraumatic. Nose: Right Sinus: Maxillary sinus tenderness present. Left Sinus: Maxillary sinus tenderness present. Cardiovascular: Rate and Rhythm: Normal rate and regular rhythm. Heart sounds: Normal heart sounds, S1 normal and S2 normal. Pulmonary: Effort: Pulmonary effort is normal. Breath sounds: Normal breath sounds. Lymphadenopathy: Cervical: No cervical adenopathy. Right cervical: No superficial cervical adenopathy. Left cervical: No superficial cervical adenopathy. Neurological: Mental Status: She is alert and oriented to person, place, and time. Gait: Gait is intact. ASSESSMENT/PLAN: 1. Influenza A - ICD9: 487.1, ICD10: J10.1 (primary diagnosis) -discussed expected course -discussed supportive care -discussed red flags and reasons for f/u -discussed contagiousness, reason/when close family members should f/u, and whom to avoid -f/u in 3-5 days if symptoms worsening - OSELTAMIVIR 75 MG CAPSULE 2. URI, acute - ICD9: 465.9, ICD10: J06.9 - Discussed viral etiology and rationale for treatment. - Symptomatic treatment with prn analgesia - Supportive care with fluids and rest - Follow up in 3-5 days if symptoms persist or sooner if worsening of symptoms - INFLUENZA AANDB MOLECULAR (POC) 3. Sore throat - ICD9: 462, ICD10: J02.9 Negative, viral - ALERE STREP A TEST (AG) Lit Mcmullen APRN.ATMOSPHERIC CHEMIST Allergies As of Date: 11/23/2024 (No Known Allergies) Date Reviewed: 11/23/2024 Reviewed by: (more content not included)... Normal [facility] CNPNon 11-23-2024 CNPN Telephone (UCWSTR) BECKY HUFFMAN ([id number]) 1970 F Date Time Provider Department 11/23/24 LIT MCMULLEN During your visit today, we recorded the following information about you: Isabell Auguste RN 11/23/2024 8:22 AM Signed Patient calls to check on status of Tamiflu prescription. Patient at pharmacy to bead picker and not received. Patient asking if we could call her once completed so she can bead picker. [phone]. Prescription not noted. Pended. CHEIKH Burgos Jonathan, APRN.ATMOSPHERIC CHEMIST 11/23/2024 8:35 AM Signed Re sent Sun Neal OCCA 11/23/2024 8:57 AM Signed TC to patient who is informed rx sent to pharmacy. CHINO Ribera Allergies As of Date: 11/23/2024 (No Known Allergies) Date Reviewed: 11/23/2024 Reviewed by: Jessica Tobar MA - Fully Assessed Reason for Visit: Medication Problem [65] Prescriptions as of 11/23/2024 - oseltamivir (TAMIFLU) 75 mg capsule Take 1 capsule by mouth two times a day for 5 days. - anastrozole (ARIMIDEX) 1 mg tablet Take 1 tablet by mouth once daily. - hydrOXYchloroQUINE (PLAQUENIL) 200 mg tablet Take 200 mg by mouth once daily. - cholecalciferol, vitamin D3, (VITAMIN D3 ORAL) Take 2,000 Units by mouth once daily. - certolizumab pegol (CIMZIA SUBCUTANEOUS) Inject 200 mg subcutaneously. Twice a month - calcium carbonate/vitamin D3 (CALCIUM 600 + D ORAL) Take 1 tablet by mouth once daily. - leflunomide (ARAVA) 20 mg tablet Take 20 mg by mouth once daily. - ferrous sulfate 325 mg (65 mg iron) tablet Take 325 mg by mouth once daily. - DAILY MULTIVITAMIN TAB Take 1 tablet by mouth once daily. Problem List As Of Date 11/23/2024 Noted Resolved Climacteric [N95.1] 12/16/2013 Malignant neoplasm of central portion of right *12/23/2018 Rheumatoid arthritis involving multiple sites (*05/20/2021 Encounter Status:Closed by SUN NEAL on 11/23/24 Normal [facility] INFLUENZA A&B MOLECULAR (POC )on 11-23-2024 Flu A (POCT) Positive Abnormal Negative [facility] Comment on above: Location:[address], [place], [address] Interpretation and review of laboratory results Abnormal [facility] Procedural Control Valid [facility] Location: [place], [address] [facility], [place], [id number] [place] [address] POINT OF CARE [facility] STREP A MOLECULAR (POC)on Procedural Control Valid [facility] Strep A (POCT) Negative Negative [facility] Hepatic function 2000 panelo n 06-17-2024 Albumin [Mass/Vol] 4.0 g/dL Normal 3.9-4.9 [facility] Comment on above: Order Comment: Speci men Type: BLOOD SPECIMENOrdering Facility: [facility] Address: [address] [place] [address] Performed By: #### 2 4325-3 ####[facility] LABCLIA [id number] [place] [address] [place] ALP [Catalytic activity/Vol] 60 U/L Normal 34-123 [facility] Comment on above: Order Comment: Speci men Type: BLOOD SPECIMENOrdering Facility: [facility] Address: [address] [place] [address] Performed By: #### 2 4325-3 ####[facility] LABCLIA [id number] [place] [address] [place] ALT [Catalytic activity/Vol] 25 U/L Normal 7-38 [facility] Comment on above: Order Comment: Speci men Type: BLOOD SPECIMENOrdering Facility: [facility] Address: [address] [place] [address] Performed By: #### 2 4325-3 ####[facility] LABCLIA [id number] [place] [id number] [place] AST [Catalytic activity/Vol] 38 U/L High 13-35 [facility] Comment on above: Order Comment: Speci men Type: BLOOD SPECIMENOrdering Facility: [facility] Address: [address] [place] [address] Performed By: #### 2 4325-3 ####[facility] LABCLIA [id number] [place] [address] [place] Bilirubin [Mass/Vol] 0.3 mg/dL Normal 0.2-1.3 [facility] Comment on above: Order Comment: Speci men Type: BLOOD SPECIMENOrdering Facility: [facility] Address: [address] [place] [address] Performed By: #### 2 4325-3 ####[facility] LABCLIA [id number] [address] [place] Bilirubin.conjugated [Mass/Vol] mg/dL Normal <0.2 [facility] Comment on above: Order Comment: Speci men Type: BLOOD SPECIMENOrdering Facility: [facility] Address: [address] [place] [address] Performed By: #### 2 4325-3 ####[facility] LABCLIA [id number] [place] [address] [place] Protein [Mass/Vol] 6.5 g/dL Normal 6.3-8.0 [facility] Comment on above: Order Comment: Speci men Type: BLOOD SPECIMENOrdering Facility: [facility] Address: [address] [place] [address] Performed By: #### 2 4325-3 ####[facility] LABIA [id number] [address] [place] Lizette 05-31-2024 RAYN Telephone (PODIWS) BECKY HUFFMAN ([id number]) 1970 F Date Time Provider Department 05/31/24 ANUPAM VELASCO During your visit today, we recorded the following information about you: Marvin Johnson LPN 05/31/2024 2:44 PM Signed Patient calling and reports she has had redness around the right second toenail since Thursday. Redness extends from below the nail to about a quarter of the way down the toe. She has some neuropathy but does not recall an obvious injury. She is not having any pain related to the redness. She recently finished her course of itraconazole. She is wondering if she should be concerned or if we have any suggestions? Please advise. MAR Cole Matthew 06/05/2024 4:04 PM Signed I received a phone call from patient stating her 2nd toenail fell off and she has redness. She does not recall any injury Told her that the redness could be from inflammation vs infection. She can lift the toe above the heart for a few moments to see if the redness goes down. If the redness goes down, could be a sign of just inflammation. If the redness fails to improve, could be infection. If she wishes to be cautious, could give her an antibiotic. I will give her an antibiotic x 1 week. If condition fails to improve, she can call the office or me this week and we will see her Anupam BRUNO Velasco Allergies As of Date: 05/31/2024 (No Known Allergies) Date Reviewed: 05/23/2024 Reviewed by: Adelina Luis APRN.ATMOSPHERIC CHEMIST - Fully Assessed Reason for Visit: Patient Update [1234] Order(s):amoxicillin-c lavulanate potassium (AUGMENTIN) 875-125 mg per tabletTake 1 tablet by mouth two times a day for 7 days. FOR 7 DAYS.Disp: 14 tabletRfl: 0 Prescriptions as of 06/05/2024 - amoxicillin-clavulanat e potassium (AUGMENTIN) 875-125 mg per tablet Take 1 tablet by mouth two times a day for 7 days. FOR 7 DAYS. - anastrozole (ARIMIDEX) 1 mg tablet Take 1 tablet by mouth once daily. - hydrOXYchloroQUINE (PLAQUENIL) 200 mg tablet Take 200 mg by mouth once daily. - cholecalciferol, vitamin D3, (VITAMIN D3 ORAL) Take 2,000 Units by mouth once daily. - certolizumab pegol (CIMZIA SUBCUTANEOUS) Inject 200 mg subcutaneously. Twice a month - calcium carbonate/vitamin D3 (CALCIUM 600 + D ORAL) Take 1 tablet by mouth once daily. - leflunomide (ARAVA) 20 mg tablet Take 20 mg by mouth once daily. - ferrous sulfate 325 mg (65 mg iron) tablet Take 325 mg by mouth once daily. - DAILY MULTIVITAMIN TAB Take 1 tablet by mouth once daily. Problem List As Of Date 05/31/2024 Noted Resolved Climacteric [N95.1] 12/16/2013 Malignant neoplasm of central portion of right *12/23/2018 Rheumatoid arthritis involving multiple sites (*05/20/2021 Prescriptions ordered this encounter Disp Refills Start End AMOXICILLIN 875 MG-POTASSIUM CLAVULA* 14 t* 0 06/05/2024 06/12/2024 Route: ORAL Sig: Take 1 tablet by mouth two times a day for 7 days. FOR 7 DAYS. Encounter Status:Closed by ANUPAM VELASCO DPM on 06/05/24 [facility] CNOVSPon 05-23-2024 CNOVSP Visit (SP) Office (KORI) BECKY HUFFMAN ([id number]) 1970 F Date Time Provider Department 05/23/24 9:00 AM ADELINA LUIS During your visit today, we recorded the following information about you: Temperature Pulse Blood pressure Weight 97.4 degrees 83/minute 120/75 65.4 kg Adelina Luis APRN.ATMOSPHERIC CHEMIST 05/23/2024 10:31 AM Signed Chief Complaint Patient presents with: Established Patient HPI: Becky Huffman is a 54 year old female who presents here today for follow up breast cancer. Per Dr. Stockton's previous note: H/o rheumatoid arthritis. She appreciated all hard lump in her right breast. US 12/06/2018: The palpable abnormality corresponds to a 6 mm x 12 mm x 12 mm irregular hypoechoic solid nodule. 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 ER (clone 6F11) >95%, moderate [place] (clone 16/1E2) 24%, weak Her-2Neu (clone CB11) 2+ ADDENDUM IN SITU HYBRIDIZATION (LEIDY) FOR HER2 Interpretation: Not Amplified HER2 : CEP-17 Ratio: 1.3 Average HER2 Signal: 2.1 Average CEP-17 Signal: 1.65 Number of Tumor Cells Scanned: 50 MRI breast 12/21/2018: No MRI evidence of malignancy in left breast. The 1.9 cm x 1.8 cm x 1.8 cm irregular mass in the right breast upper outer aspect anterior depth is a known biopsy positive for malignancy. The 4 mm mass in the right breast upper outer aspect middle depth is consistent with a lymph node and is benign. Last menses ~2 years ago. Had some hot flashes. Mother--Throat cancer. RA--Diagnosed ~10 years ago. Initially manifested as bilateral knee swelling. She has been on various treatments over the last 10 years. She will have flares of joint pain predominantly in the wrists and hands when she's been working. Underwent partial mastectomy with sentinel lymph node biopsy followed by axillary dissection on 12/28/2018. Pathology: FROZEN SECTION DIAGNOSIS A. Right axillary sentinel lymph nodes, biopsy: Two out of two lymph nodes positive for macrometastatic carcinoma. MICROSCOPIC DIAGNOSIS A. Right axillary lymph nodes, biopsy: Two out of two lymph nodes, positive for metastatic carcinoma. See comment. B. 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 See cancer summary below. C. Right axillary dissection: Three out of eight lymph nodes, positive for metastatic carcinoma. See comment. D. Re-excision inferior margin: Negative for carcinoma. INVASIVE BREAST CANCER SUMMARY: (Including specimens A to D) Specimen - partial breast Procedure - excision with wire-guided localization Lymph node sampling - sentinel lymph node and axillary dissection Specimen integrity - multiple designated specimens (specimen B AND D) Specimen size - lumpectomy specimen 4.5 x 3.5 x 3 cm Re-excision inferior margin - 5 x 3 x 1 cm Specimen laterality - right Tumor site - central portion of the right breast as per clinical information. Tumor size - 1.5 x 1.5 x 1.2 cm Tumor focality - single focus of invasive carcinoma Macroscopic and Microscopic extent of tumor: Skin - not present Nipple - not applicable Skeletal muscle - not present Ductal carcinoma in situ (DCIS) - no DCIS is present. Lobular carcinoma in situ (LCIS) - present Histologic type of invasive carcinoma - invasive carcinoma with ductal and lobular features (mixed type carcinoma). Histologic Grade (Karine grade): Glandular/tubular differentiation - score 3 Nuclear pleomorphism - score 3 Mitotic count - score 1 Overall grade - 2 (score of 7) Margins - Margins uninvolved by invasive carcinoma. The invasive carcinoma and lobular carcinoma in situ is 0.2 cm away from the inferior margin in lumpectomy specimen. Re-excision inferior margin measures 1 cm in thickness, overall the tumor is about 1.2 away from the inferior margin. The invasive carcinoma and lobular carcinoma in situ is 0.1 cm away from the anterior margin in lumpectomy specimen. Treatment effect: Response to presurgical (neoadjuvant) therapy - no known presurgical therapy. Lymph-Vascular invasion - not identified Dermal lymph-vascular invasion - not applicable Lymph nodes: Number of sentinel lymph nodes examined - 2 Total number of lymph nodes examined (sentinel and nonsentinel) - 10 Number of lymph nodes with macrometastases - 5 Number of lymph nodes with micrometastases and isolated tumor cells - 0 Size of largest metastatic deposit - 1.1 x 1.0 cm (measured microscopically). Extranodal extension - present, focal Method of evaluation of sentinel lymph nodes - H AND E and multiple levels. Distant metastasis - not applicable Additional pathologic findings - extensive dense fibros (more content not included)... Normal [facility] Cervical or vaginal specimen microscopic examination by liquid based cytology (reportOrdered By: Nydia Bains on 01-25-2024 Cytology report Cyto stain.thin prep Doc (Cvx/Vag) Comment . [facility] Comment on above: Criteria not met, HP V Genotype not performed.Performed at: - [address], [place] [id number] Director: Tri Amin MD, Phone: [phone] at: =[facility] [place], [place] [id number] Director: Tri Amin MD, Phone: [phone] Cervical or vagninal specime n microscopic examination by cytology stain (reported asOrdered By: Nydia Bains on 01-25-2024 Cytology report Cyto stain Doc (Cvx/Vag) Comment . [facility] Comment on above: The Pap smear is a s creening test designed to aid in thedetection of premalignant and malignant conditions of theuterine cervix. It is not a diagnostic procedure andshould not be used as the sole means of detecting cervicalcancer. Both false-positive and false-negative reports dooccur. Detection in cervical specim en of any of human papilloma virus (HPV) 16, 18, 31, 33,Ordered By: Nydia Bains on 01-25-2024 HPV 16+18+31+33+35+39+45+51 +52+56+58+59+66+68 DNA Probe+sig amp Ql (Cvx) Negative Negative [facility] Comment on above: This nucleic acid am plification test detects fourteen high-risk HPV types (16,18,31,33,35,39,45,51,52,56,58,59,66,68)without differentiation. Laboratory - CytologyOrdered By: Nydia Bains on 01-25-2024 Whizzer Operator Cyto stain Nom (Cvx/Vag) [ID] Comment . [facility] Comment on above: Ruchi Allen, Cyto technologist (ASCP) Laboratory - Miscellaneous t estsOrdered By: Nydia Bains on 01-25-2024 Service comment (Unsp spec) [Interp] . . [facility] No Panel InformationOrdered By: Nydia Bains on 01-25-2024 Pap Smear QC Review Comment . [facility] Comment on above: Little Hanks, Cytot echnologist (ASCP) Thin prep Papanicolaou smear with manual screeningOrdered By: Nydia Bains on 01-25-2024 Thin prep Papanicolaou smear with manual screening Comment . [facility] Comment on above: NEGATIVE FOR INTRAEP ITHELIAL LESION OR MALIGNANCY.CELLULAR CHANGES ASSOCIATED WITH ATROPHY ARE PRESENT.THIS SPECIMEN WAS RESCREENED PART OF OUR DIGITAL MARKETING CONSULTANT PROGRAM. Thin prep Papanicolaou smear with manual screening TNP [facility] Comment on above: Test not performedTh e Thin Prep(R) White Metal Caster was unable to read this specimen.Therefore a manual review was performed. STREP A MOLECULAR (POC)on Procedural Control Valid [facility] Strep A (POCT) Positive Abnormal Negative [facility] DRAINAGE SOFT TISSUE PERCUTA NEOUS W/ IMAGE GUIDANCEon 08-23-2021 DRAINAGE SOFT TISSUE PERCUTANEOUS W/ IMAGE GUIDANCE EXAM: IR DRAINAGE SOFT TISSUE PERCUTANEOUS W/ IMAGE GUIDANCE , 08/16/2021 11:19 AM COMPARISON: Compared to CT abdomen/pelvis 08/28/2020 CLINICAL INDICATIONS: 51-year-old female with history of breast cancer status post flap reconstruction with persistent subcutaneous seroma OPERATORS: Linwood Isidro M.D. and Tavo Ragland M.D. PROCEDURE/TECHNIQUE: Consent: Written, informed consent was obtained after explaining the procedure to the patient, including benefits and risks, and answering the patient's questions. Moderate Sedation: I performed Moderate Sedation which included the presence of a nurse that assisted in monitoring the patients level of consciousness and physiological status. After administration of Fentanyl and Versed, I spent 18 minutes of continuous mjto-kg-hgot time with the patient. Position: The patient was transferred to the IR laboratory and positioned supine on the procedure table. The was prepared and draped using maximum sterile barrier technique. This consisted of cap, mask, hand hygiene, sterile gown, sterile gloves, 2% chlorhexidine solution for cutaneous antisepsis, and occlusive sterile draping of the field. Time Out: A time out was performed prior to the procedure in the presence of the patient and all personnel involved in the case. The patient's identity, procedure type, procedure side/site, and allergies were verified. Procedure/Findings: Images of the target were saved to the image archive system. An 5Fx7cm In [employer] needle was advanced using Ultrasound guidance into the collection at the midline. The drainage was serous in nature. A guidewire was then passed through the needle and the tract was dilated over the wire. A 10 Mauritian drain was then placed over the wire, and additional images were obtained to confirm positioning of the catheter within the left aspect of the collection. The catheter was sutured to the skin with a single stitch, and connected to a straight drain. A total of 50 ml was drained by the time the patient left the department. Post-Procedure: Post-procedure images demonstrate the pigtail of the catheter within the collection. The patient tolerated the procedure well, with no immediate complications. IMPRESSION: 1. Successful placement of a 10 Mauritian pigtail drain into a subcutaneous infraumbilical seroma. 2. Flush drain with 5 mL saline BID. 3. Patient to monitor output daily and follow with vascular interventional clinic to assess for resolution of seroma. Linwood Isidro M.D. was in the room and participated during all easley portions of this procedure. I personally viewed and interpreted these images and I have reviewed and approved this report. [employer] Event Details User 10:29 AM 08/16/21 Timeout: Sign-in Signed by Talon Pablo RN at 08/16/2021 10:29 AM 10:48 AM 08/16/21 Timeout: TimeOut Signed by Talon Pablo RN at 08/16/2021 10:51 AM 10:50 AM 08/16/21 fentaNYL (SUBLIMAZE) injection 300 mcg 50 mcg Given Rate: 0 Route: Intravenous AH 10:50 AM 08/16/21 midazolam (VERSED) injection 10 mg 1 mg Given Rate: 0 Route: Intravenous AH 10:57 AM 08/16/21 midazolam (VERSED) injection 10 mg 1 mg Given Rate: 0 Route: Intravenous AH 10:57 AM 08/16/21 fentaNYL (SUBLIMAZE) injection 300 mcg 50 mcg Given Rate: 0 Route: Intravenous AH 11:03 AM 08/16/21 lidocaine 2 % injection 0-400 mg 4 mL Given Rate: 0 Route: Infiltration MEHRAN 11:08 AM 08/16/21 Timeout: Sign-out Signed by Talon Pablo RN at 08/16/2021 11:08 AM Physician Physician Event Details User 10:29 AM 08/16/21 Timeout: Sign-in Signed by Talon Pablo RN at 08/16/2021 10:29 AM 10:48 AM 08/16/21 Timeout: TimeOut Signed by Talon Pablo RN at 08/16/2021 10:51 AM 11:08 AM 08/16/21 Timeout: Sign-out Signed by Talon Pablo RN at 08/16/2021 11:08 AM AH Normal [facility] COVID-19([facility])on 05-14-2020 COVID-19([facility]) NOT DETECTED Normal NOT DETECTED [facility] Comment on above: Performed By: #### C OVID-19([facility]) #### [facility] [address] [place], [place] [id number] COVID-19([facility])on 05-11-2020 Age at specimen collection = Normal [facility] Comment on above: Performed By: #### C OVID-19([facility]) #### [facility] [address] [place], [place] [id number] Radiation Onc Init Conson Radiation Onc Init Cons PATIENT: BECKY HUFFMAN DATE OF SERVICE: 01/20/2019 : 1970 AGE: 48 Electronically Authenticated Patrice Hickman MD 02/06/2019 03:06 P Referring Physician: Dede Pettit MD DIAGNOSIS: Ms. Huffman is a 48-year-old woman with a right breast cancer. HISTORY OF PRESENT ILLNESS: We are asked by Dr. Pettit to see the patient in consideration of radiotherapy options for the above diagnosis. The patient has had her care conducted at an outside facility where diagnostic mammogram showed focally asymmetry in the periareolar region of the right breast. She then had a core biopsy done that showed an invasive mammary carcinoma with mixed ductal and lobular features, grade 2, hormone positive, HER2/izzy non-amplified by FISH. She underwent wire localized lumpectomy and sentinel lymph node biopsy on December 28, 2018 at [facility] with 2 out of 2 sentinel lymph nodes positive for metastatic carcinoma. She then underwent a completion axillary dissection, with 8 additional lymph nodes identified of which 3 contained tumor, for a total of 5 out of 10 lymph nodes for disease. Final pathology also confirmed a 1.5 cm focus of primary tumor with negative margin, negative LVSI and positive extranodal extension, Stage pT1c N2. She does have rheumatoid arthritis. The patient has healed well from surgery and denies chest pain, shortness of breath, cough, or hemoptysis. She denies need for drainage for antibiotics. She reports good range of motion of bilateral shoulders. The patient denies any prior history of radiotherapy. She does have a history of rheumatoid arthritis for which she takes medications under the guidance of her insurance and benefits clerk. PAST MEDICAL HISTORY: 1. Right breast cancer. 2. Rheumatoid arthritis. PAST SURGICAL HISTORY: Tonsillectomy. ALLERGIES: THESE WERE REVIEWED WITHIN [facility]. MEDICATIONS: These were reviewed within [employer]. FAMILY HISTORY: No familial history of ovarian cancer, but she did have her cousin with breast cancer in her 60s. SOCIAL HISTORY: The patient is accompanied by her friend. She denies current tobacco or alcohol use. REVIEW OF SYSTEMS: Complete 12-point review of systems was performed, pertinent positives and negatives are those provided in the history of present illness. All other systems are reviewed and are negative. PHYSICAL EXAMINATION: Vital Signs: These were reviewed within [employer]. General: No acute distress, alert and oriented x3, pleasant. HEENT: Atraumatic, normocephalic. Neck: Supple. Lymph Nodes: No palpable supraclavicular or cervical adenopathy appreciated. Chest: Symmetric. Respiratory: Clear to auscultation bilaterally. Heart: Regular rate and rhythm. Abdomen: Soft, nontender. Extremities: No lower or upper extremities swelling. Neurological: No focal motor or sensory deficits appreciated. Psychiatric: Appropriate affect. Goal oriented speech. ASSESSMENT: MS. HUFFMAN is a 48-year-old woman with pT1c N2a right breast mammary carcinoma, grade 2, hormone positive, HER2/izzy negative, status post lumpectomy to negative margin, but 5 of 10 lymph nodes involved with disease with extranodal extension, clinically recovering well. Her ECOG performance status is 0. I reviewed with the patient that I agree with the outside hospital in terms of pursuing adjuvant systemic therapy now. She will be seeing Dr. Bernard later today. I reviewed that radiotherapy would take place after chemotherapy is complete. I did review the logistics of this, including CT simulation as well as daily therapy. I reviewed the acute and late side effects of therapy as well. All of her questions were answered to her satisfaction. She will follow with her primary team and pursue radiotherapy in [place], which would be appropriate. PLAN: 1. Follow up with Dr. Bernard and discussion for systemic therapy as scheduled. 2. Follow up with Radiation Oncology team in [place] for consideration of adjuvant radiotherapy to be done after chemotherapy is complete. Thank you for involving me in the care of the patient. Should any questions or concerns arise, please feel free to contact me. Titi Job ID: [id number] Patrice Hickman MD DOD:02/04/2019 09:42 A SHAYLA/flory DOT:02/04/201910:58 A cc: Femi Elias MD [address] [facility] [address] Normal [facility] Basic Metabolic Panelon 03-2 Calcium mass conc 9.4 mg/dL Normal 8.4-10.4 [facility] Comment on above: Performed By: #### H EMOG, LFT3, BMP3 #### [address] [address] [place] [address] Anion gap molar conc 9 Normal [facility] Comment on above: Performed By: #### H EMOG, LFT3, BMP3 #### [address] [place] [address] CO2 molar conc 28 mmol/L Normal 22-30 [facility] Comment on above: Performed By: #### H EMOG, LFT3, BMP3 #### [address] [place] [address] Creatinine mass conc 0.65 mg/dL Normal 0.52-1.25 [facility] Comment on above: Performed By: #### H EMOG, LFT3, BMP3 #### [address] [place] [address] GFR/1.73 sq M predicted among blacks MDRD vol rate/area (S/P/Bld) mL/min/{1.73_m2} Normal >60 [facility] Comment on above: Performed By: #### H EMOG, LFT3, BMP3 #### [address] [place] [address] GFR/1.73 sq M predicted among non-blacks MDRD vol rate/area (S/P/Bld) mL/min/{1.73_m2} Normal >60 [facility] Comment on above: Result Comment: Sour ce- MDRD equation with creatinine calibration to IDMS(NKDEP) eGFR not recommended for drug dose adjustment Performed By: #### H EMOG, LFT3, BMP3 #### [facility] [address] [place] [address] Glucose mass conc 96 mg/dL Normal 70-100 [facility] Comment on above: Performed By: #### H EMOG, LFT3, BMP3 #### [facility] [address] [place] [address] Urea nitrogen mass conc 19 mg/dL Normal 7-20 [facility] Comment on above: Performed By: #### H EMOG, LFT3, BMP3 #### [facility] [address] [place] [address] Potassium molar conc 4.9 mmol/L Normal 3.5-5.1 [facility] Comment on above: Performed By: #### H EMOG, LFT3, BMP3 #### [facility] [address] [place] [address] Chloride molar conc 103 mmol/L Normal 98-107 [facility] Comment on above: Performed By: #### H EMOG, LFT3, BMP3 #### [facility] [address] [place] [address] Sodium molar conc 140 mmol/L Normal 135-145 [facility] Comment on above: Performed By: #### H EMOG, LFT3, BMP3 #### [facility] [address] [place] [address] Hemogramon 01-14-2019 Erythrocyte distribution width Ratio (RBC) 15.5 % High 11.5-14.5 [facility] Comment on above: Performed By: #### H EMOG, LFT3, BMP3 #### [facility] [address] [place] [address] Hematocrit Volume Fraction (Bld) 36.2 % Normal 35.0-47.0 [facility] Comment on above: Performed By: #### H EMOG, LFT3, BMP3 #### [address] [place] [place], [place] Hemoglobin mass conc (Bld) 12.3 g/dL Normal 11.7-16.0 [facility] Comment on above: Performed By: #### H EMOG, LFT3, BMP3 #### [address] [address] [place], [place] MCH Entitic mass (RBC) 30.2 pg Normal 26.0-34.0 [facility] Comment on above: Performed By: #### H EMOG, LFT3, BMP3 #### [address] MCHC mass conc (RBC) 34.1 % Normal 32.0-36.0 [facility] Comment on above: Performed By: #### H EMOG, LFT3, BMP3 #### [address] MCV Entitic volume (RBC) 88.6 fL Normal 79.0-98.0 [facility] Comment on above: Performed By: #### H EMOG, LFT3, BMP3 #### [address] Platelet mean volume Entitic volume (Bld) 8.0 fL Normal 7.4-10.4 [facility] Comment on above: Performed By: #### H EMOG, LFT3, BMP3 #### [address] Platelets #/vol (Bld) 318 10*3/uL Normal 140-440 [facility] Comment on above: Performed By: #### H EMOG, LFT3, BMP3 #### [address] RBC #/vol (Bld) 4.08 10*6/uL Normal 3.80-5.20 [facility] Comment on above: Performed By: #### H EMOG, LFT3, BMP3 #### [address] [address] [place], [place] WBC #/vol (Bld) 9.8 10*3/uL Normal 3.6-10.7 [facility] Comment on above: Performed By: #### H EMOG, LFT3, BMP3 #### [facility] [address] [place], [place] Hepatic Functionon 9 ALT enzyme act/vol 23 U/L Normal 13-69 [facility] Comment on above: Performed By: #### H EMOG, LFT3, BMP3 #### [facility] [address] [place], [place] ALP enzyme act/vol 57 U/L Normal 38-126 [facility] Comment on above: Performed By: #### H EMOG, LFT3, BMP3 #### [address] [place], [place] AST enzyme act/vol 21 U/L Normal 15-46 [facility] Comment on above: Performed By: #### H EMOG, LFT3, BMP3 #### [address] [place] [place], [place] Bilirubin mass conc 0.7 mg/dL Normal 0.2-1.3 [facility] Comment on above: Performed By: #### H EMOG, LFT3, BMP3 #### [address] [place] [place], [place] Bilirubin.direct mass conc 0.0 mg/dL Normal 0.0-0.3 [facility] Comment on above: Performed By: #### H EMOG, LFT3, BMP3 #### [facility] [address] [place], [place] Protein mass conc 7.2 g/dL Normal 6.3-8.2 [facility] Comment on above: Performed By: #### H EMOG, LFT3, BMP3 #### [facility] [address] [place], [place] Albumin mass conc 3.9 g/dL Normal 3.5-5.0 [facility] Comment on above: Performed By: #### H EMOG, LFT3, BMP3 #### [address] [address] [facility] Whole Bodyon 01-14-2019 [facility] Whole Body Patient Name: BECKY HUFFMAN Nuc Med Exam Date/Time 01/14/2019 11:51:31 EDT Exam [facility] Whole Body Ordering Physician Jeannette PETTIT VICTORIA Accession Number [id number] CPT4 Codes 81785 () Reason For Exam stage 3 breast cancer, bone pain Report BONE SCINTIGRAPHY (WHOLE BODY) CLINICAL INDICATION: Stage III breast cancer, bone pain Delayed whole body imaging was performed in the standard anterior and posterior projections following the intravenous administration of 23 mCi of technetium-99m MDP. Additional spot views of the skull, pelvis, and ribs were also obtained. COMPARISON: CT dated 01/13/2019 FINDINGS: No evidence of osseous metastatic disease is identified. There is mild, symmetric increased uptake noted within the shoulders, wrists, hips, knees, ankles, and feet, which is likely degenerative in etiology. Visualized soft tissues are grossly unremarkable. IMPRESSION: No evidence of osseous metastatic disease. Mild, likely degenerative changes of the joints as above. Report Dictated on Final Dictated: 01/14/2019 1:04 pm Dictating Physician: MD FERRIS JONATHAN R Signed Date and Time: 01/14/2019 1:09 pm Signed by: MD FERRIS JONATHAN R Transcribed Date and Time: 01/14/2019 1:[address] [facility] [address] Chest/Abdomen/Pelvis (IV Only)on 01-13-2019 CT Chest/Abdomen/Pelvis (IV Only) Patient Name: BECKY HUFFMAN CT Exam Date/Time 01/13/2019 14:21:[address] Chest/Abdomen/Pelvis (IV Only) Ordering Physician Jeannette PETTIT VICTORIA Accession Number [id number] CPT4 Codes 91251 (CT Chest/Abdomen/Pelvis (IV Only)), 58962 (CT Chest w/ Contrast), Q9967 (CT ISOVUE [id number] andMLand1) Reason For Exam Stage 3 breast cancer, malignant neoplasm of central portion of right breast in female Report CT CHEST, ABDOMEN, AND PELVIS WITH CONTRAST CLINICAL INDICATION: Breast cancer Serial, axial CT images were obtained through the chest, abdomen, and pelvis after intravenous contrast. 75 milliliters of Isovue 370 contrast was given intravenously. Oral contrast was given for this examination. Coronal and sagittal reformatted images were also made available for interpretation. COMPARISON: None CHEST: No focal consolidation is seen within the lungs. There is no pleural effusion or pneumothorax. No pulmonary nodules are identified. Postoperative changes are noted within the lateral aspect of the right breast extending into the right axilla. There is a low-density fluid collection within this area measuring 5.4 x 3.0 cm in greatest axial diameter, most likely representing a postoperative seroma or hematoma. There is no hilar, mediastinal, or axillary lymphadenopathy. The heart size is within normal limits. There is no pericardial effusion. The thoracic aorta appears normal in caliber. No lytic or blastic lesions are seen on the bone windows. IMPRESSION: No lymphadenopathy or mass is identified within the chest. No pulmonary nodules are identified. There are postoperative changes within the lateral aspect of the right breast extending into the right axilla. There is a low-density fluid collection measuring 5.4 x 3 cm in greatest axial diameter, most likely representing a postoperative seroma or hematoma. ABDOMEN AND PELVIS: The liver, gallbladder, spleen, pancreas, adrenal glands and kidneys appear within normal limits. The abdominal aorta is normal in caliber. There is no retroperitoneal, pelvic, or inguinal lymphadenopathy. The urinary bladder appears grossly normal. The uterus does not appear enlarged. The large and small bowel appears within normal limits without evidence of wall thickening or dilatation. The appendix appears normal. There is no free fluid within the abdomen or pelvis. There is no free air under the diaphragm. No lytic or blastic lesions are seen on the bone windows. IMPRESSION: No lymphadenopathy or suspicious mass is identified within the abdomen or pelvis. Report Dictated on Workstation: [id number] Final Dictated: 01/13/2019 2:25 pm Dictating Physician: MD FERRIS JONATHAN R Signed Date and Time: 01/13/2019 2:34 pm Signed by: SUGANO, MD, LIT R Transcribed Date and Time: 01/13/2019 2:25 Normal [facility] Surgical Pathologyon 019 Surgical Pathology [id number] [facility] PATHOLOGY AND [facility]ORATORY MEDICINE [address] [place] [id number] FINAL CONSULTATION REPORT NAME: BECKY HUFFMAN : 1970 48 Y F BILLING NO.: [id number] LOCATION: 1SPO PROCEDURE 12/28/2018 DATE: SURGEON: DEDE PETTIT M.D. RECEIVED 01/12/2019 DATE: ATTENDING DEDE PETTIT M.D. REPORT DATE: 01/18/2019 : COPIES TO: DIAGNOSIS: [facility]; [id number]; 12/28/18 A. RIGHT AXILLARY SENTINEL LYMPH NODES, EXCISION - TWO LYMPH NODES WITH METASTATIC CARCINOMA (2/2). B. RIGHT BREAST, LUMPECTOMY - INVASIVE CARCINOMA WITH DUCTAL AND LOBULAR FEATURES, AND LOBULAR CARCINOMA IN SITU. COMMENT: Only a portion of the slides for specimen B are submitted for evaluation. They reveal an infiltrating carcinoma with mixed ductal and lobular features which stains positively for CK8 and with patchy positive staining for e-cadherin. Stains for calponin and p40 are negative. The tumor is 0.1 cm from the nearest (anterior) margin, in these slides evaluated. C. RIGHT AXILLA, DISSECTION - THREE OF EIGHT LYMPH NODES WITH METASTATIC CARCINOMA (3/8). COMMENT: Immunohistochemical stains accompany the lymph node slides and reveal the tumor to be positive for CK7 and pancytokeratin in multiple blocks of lymph node tissue. These are macrometastases with focal extranodal extension. By report, the tumor was previously analyzed and found to be ER positive, [place] positive, and equivocal for Her-2 with unamplified FISH. SMT/SMT Signature> S VALERIANO HERNANDEZ M.D. Printed January 18, 2019 at 5:39:03 PM CLINICAL INFORMATION: Right breast cancer SPECIMEN: SLIDE(S) GROSS DESCRIPTION: Received are thirty (30) glass slides labeled [id number] and accompanying pathology reports from [facility] for consult at the request of Dr. Dede Valdez. SMT/[facility] Disclaimer: The following statement applies to all immunohistochemistry, in situ hybridization, molecular studies, and immunofluorescence testing. The use of one or more reagents in the above tests is regulated as an analyte specific reagent (ASR). These tests were developed and their performance characteristics determined by the clinical laboratories of [facility]. They have not been cleared by the US Food and Drug Administration (FDA). The FDA has determined that such clearance or approval is not necessary. All the above immunostains were performed on paraffin embedded tissue. Appropriate positive and negative controls (where applicable) were run in parallel with the patient's specimen; these controls showed expected staining pattern, with acceptable intensity of staining. Immunohistochemical assays have not been validated on decalcified tissues. Results should be interpreted with caution given the raised possibility of false negativity on decalcified specimens. Case reviewed at [place] [address] [place] [address]. DEPARTMENT OF PATHOLOGY AND LABORATORY MEDICINE [place], [place] [address] Normal [facility] Vital Signs Date Time Vital Sign Value Performing Clinician Facility 05-08-2025 14:37-0400 Body height 165.1 cm Becky Haagen PIN CHASER-C Work Phone: [facility] 05-08-2025 14:37-0400 Body mass index (BMI) [Ratio] 22.1 kg/m2 Becky Haagen PIN CHASER-C Work Phone: [facility] 05-08-2025 14:37-0400 Body weight 60.32 kg Becky Haagen PIN CHASER-C Work Phone: [facility] 05-08-2025 14:37-0400 Diastolic blood pressure 79 mm[Hg] Becky Haagen PIN CHASER-C Work Phone: [facility] 05-08-2025 14:37-0400 Systolic blood pressure 125 mm[Hg] Becky Haagen PIN CHASER-C Work Phone: [facility] 04-14-2025 09:52-0400 Body mass index (BMI) [Ratio] 21.02 kg/m2 Coy Click AUTO PORTER.ATMOSPHERIC CHEMIST Work Phone: [facility] 04-14-2025 09:52-0400 Body weight 58.97 kg Coy Click AUTO PORTER.ATMOSPHERIC CHEMIST Work Phone: [facility] 04-14-2025 09:52-0400 Diastolic blood pressure 76 mm[Hg] Coy Click AUTO PORTER.ATMOSPHERIC CHEMIST Work Phone: [facility] 04-14-2025 09:52-0400 Heart rate 59 /min Coy Click AUTO P[employer]TER.ATMOSPHERIC CHEMIST Work Phone: [facility] 04-14-2025 09:52-0400 Respiratory rate 18 /min Coy Click AUTO P[employer]TER.ATMOSPHERIC CHEMIST Work Phone: [facility] 04-14-2025 09:52-0400 SaO2% (BldA) [Mass fraction] 100 % Coy Click AUTO P[employer]TER.ATMOSPHERIC CHEMIST Work Phone: [facility] 04-14-2025 09:52-0400 Systolic blood pressure 122 mm[Hg] Coy Click AUTO PORTER.ATMOSPHERIC CHEMIST Work Phone: [facility] 02-14-2025 10:54-0400 Diastolic blood pressure 64 mm[Hg] Austen Caretr MD Work Phone: [facility] 02-14-2025 10:54-0400 Heart rate 102 /min Austen Carter MD Work Phone: [facility] 02-14-2025 10:54-0400 Respiratory rate 17 /min Austen Carter MD Work Phone: [facility] 02-14-2025 10:54-0400 SaO2% (BldA) [Mass fraction] 97 % Austen Carter MD Work Phone: [facility] 02-14-2025 10:54-0400 Systolic blood pressure 104 mm[Hg] Austen Carter MD Work Phone: [facility] 02-13-2025 12:40-0400 Body temperature 98 [degF] Becky Haagen PIN CHASER-C Work Phone: [facility] 02-13-2025 12:40-0400 Diastolic blood pressure 86 mm[Hg] Becky Haagen PIN CHASER-C Work Phone: 3(046)208-66[address] [place] [address] 02-13-2025 12:40-0400 Heart rate 87 /min Becky Haagen PIN CHASER-C Work Phone: [facility] 02-13-2025 12:40-0400 Respiratory rate 16 /min Becky Haagen PIN CHASER-C Work Phone: [facility] 02-13-2025 12:40-0400 SaO2% (BldA) [Mass fraction] 98 % Becky Haagen PIN CHASER-C Work Phone: [facility] 02-13-2025 12:40-0400 Systolic blood pressure 118 mm[Hg] Becky Haagen PIN CHASER-C Work Phone: [facility] 02-13-2025 11:10-0400 Body height 165.1 cm Becky Haagen PIN CHASER-C Work Phone: [facility] 02-13-2025 11:10-0400 Body mass index (BMI) [Ratio] 21.2 kg/m2 Becky Ireland PIN CHASER-C Work Phone: [facility] 02-13-2025 11:10-0400 Body weight 58 kg Becky Ireland PIN CHASER-C Work Phone: [facility] 01-31-2025 13:09-0400 Diastolic blood pressure 78 mm[Hg] Becky Haagen AUTO PORTER.ATMOSPHERIC CHEMIST Work Phone: [facility] 01-31-2025 13:09-0400 Heart rate 109 /min Becky Haagen AUTO PORTER.ATMOSPHERIC CHEMIST Work Phone: [facility] 01-31-2025 13:09-0400 Respiratory rate 16 /min Becky Ireland AUTO P[employer]TER.ATMOSPHERIC CHEMIST Work Phone: [facility] 01-31-2025 13:09-0400 SaO2% (BldA) [Mass fraction] 98 % Becky Ireland AUTO P[employer]TER.ATMOSPHERIC CHEMIST Work Phone: [facility] 01-31-2025 13:09-0400 Systolic blood pressure 116 mm[Hg] Becky Haagen AUTO PORTER.ATMOSPHERIC CHEMIST Work Phone: [facility] 01-26-2025 12:58-0400 Body mass index (BMI) [Ratio] 21.66 kg/m2 Fran Gomez Work Phone: [facility] 01-26-2025 12:58-0400 Body temperature 98.4 [degF] Fran Gomez Work Phone: [facility] 01-26-2025 12:58-0400 Body weight 60.78 kg Fran Gomez Work Phone: [facility] 01-26-2025 12:58-0400 Diastolic blood pressure 82 mm[Hg] Fran Gomez Work Phone: [facility] 01-26-2025 12:58-0400 Heart rate 127 /min Fran Gomez Work Phone: [facility] 01-26-2025 12:58-0400 SaO2% (BldA) [Mass fraction] 97 % Fran Gomez Work Phone: [facility] 01-26-2025 12:58-0400 Systolic blood pressure 123 mm[Hg] Fran Gomez Work Phone: [facility] 01-23-2025 18:23-0400 Body mass index (BMI) [Ratio] 21.5 kg/m2 Becky Haagen AUTO P[employer]TER.ATMOSPHERIC CHEMIST Work Phone: [facility] 01-23-2025 18:23-0400 Body weight 60.33 kg Becky Haagen AUTO P[employer]TER.ATMOSPHERIC CHEMIST Work Phone: [facility] 01-23-2025 18:23-0400 Diastolic blood pressure 98 mm[Hg] Becky Haagen AUTO PORTER.ATMOSPHERIC CHEMIST Work Phone: [facility] 01-23-2025 18:23-0400 Heart rate 123 /min Becky Haagen AUTO PORTER.ATMOSPHERIC CHEMIST Work Phone: [facility] 01-23-2025 18:23-0400 Respiratory rate 16 /min Becky Haagen AUTO PORTER.ATMOSPHERIC CHEMIST Work Phone: [facility] 01-23-2025 18:23-0400 SaO2% (BldA) [Mass fraction] 96 % Becky Haagen AUTO PORTER.ATMOSPHERIC CHEMIST Work Phone: [facility] 01-23-2025 18:23-0400 Systolic blood pressure 120 mm[Hg] Becky Haagen AUTO PORTER.ATMOSPHERIC CHEMIST Work Phone: [facility] 01-13-2025 15:00-0400 Diastolic blood pressure 75 mm[Hg] Becky Haagen PIN CHASER-C Work Phone: [facility] 01-13-2025 15:00-0400 Heart rate 107 /min Becky Haagen PIN CHASER-C Work Phone: [facility] 01-13-2025 15:00-0400 Respiratory rate 18 /min Becky Haagen PIN CHASER-C Work Phone: [facility] 01-13-2025 15:00-0400 SaO2% (BldA) [Mass fraction] 96 % Becky Ireland PIN CHASER-C Work Phone: [facility] 01-13-2025 15:00-0400 Systolic blood pressure 130 mm[Hg] Becky Haagen PIN CHASER-C Work Phone: [facility] 01-13-2025 10:49-0400 Body height 167.64 cm Becky Haagen PIN CHASER-C Work Phone: [facility] 01-13-2025 10:49-0400 Body mass index (BMI) [Ratio] 21.6 kg/m2 Becky Haagen PIN CHASER-C Work Phone: [facility] 01-13-2025 10:49-0400 Body temperature 98.3 [degF] Becky Haagen PIN CHASER-C Work Phone: [facility] 01-13-2025 10:49-0400 Body weight 60.78 kg Becky Ireland PIN CHASER-C Work Phone: [facility] 01-10-2025 15:22-0400 Diastolic blood pressure 66 mm[Hg] Becky Hacandida AUTO PORTER.ATMOSPHERIC CHEMIST Work Phone: [facility] 01-10-2025 15:22-0400 Heart rate 125 /min Becky Haagen AUTO PORTER.ATMOSPHERIC CHEMIST Work Phone: [facility] 01-10-2025 15:22-0400 Systolic blood pressure 90 mm[Hg] Becky Haagen AUTO PORTER.ATMOSPHERIC CHEMIST Work Phone: [facility] 01-10-2025 15:13-0400 Respiratory rate 16 /min Becky Haagen AUTO PORTER.ATMOSPHERIC CHEMIST Work Phone: [facility] 01-10-2025 15:13-0400 SaO2% (BldA) [Mass fraction] 95 % Becky Ireland AUTO PORTER.ATMOSPHERIC CHEMIST Work Phone: [facility] 12-27-2024 14:43-0400 Body temperature 97 [degF] Becky Haagen PIN CHASER-C Work Phone: [facility] 12-27-2024 14:43-0400 Diastolic blood pressure 74 mm[Hg] Becky Palafoxagen PIN CHASER-C Work Phone: [facility] 12-27-2024 14:43-0400 Heart rate 95 /min Becky Haagen PIN CHASER-C Work Phone: [facility] 12-27-2024 14:43-0400 Respiratory rate 16 /min Becky Haagen PIN CHASER-C Work Phone: [facility] 12-27-2024 14:43-0400 SaO2% (BldA) [Mass fraction] 95 % Becky Haagen PIN CHASER-C Work Phone: 7(583)072-030[address] [place] [address] 12-27-2024 14:43-0400 Systolic blood pressure 114 mm[Hg] Becky Haagen PIN CHASER-C Work Phone: 8(216)977-422085 [place] [address] 12-27-2024 10:03-0400 Body height 167.64 cm Becky Haagen PIN CHASER-C Work Phone: 1(530)995-017537 [place] [address] 12-27-2024 10:03-0400 Body mass index (BMI) [Ratio] 23.1 kg/m2 Becky Haagen PIN CHASER-C Work Phone: [facility] 12-27-2024 10:03-0400 Body weight 64.81 kg Becky Haagen PIN CHASER-C Work Phone: [facility] 12-27-2024 09:05-0400 Body temperature 101.61 [degF] Becky Ireland AUTO PORTER.ATMOSPHERIC CHEMIST Work Phone: [facility] 12-27-2024 09:05-0400 Diastolic blood pressure 76 mm[Hg] Becky Ireland AUTO PORTER.ATMOSPHERIC CHEMIST Work Phone: [facility] 12-27-2024 09:05-0400 Heart rate 119 /min Becky Ireland AUTO PORTER.ATMOSPHERIC CHEMIST Work Phone: [facility] 12-27-2024 09:05-0400 Respiratory rate 16 /min Becky Ireland AUTO PORTER.ATMOSPHERIC CHEMIST Work Phone: [facility] 12-27-2024 09:05-0400 SaO2% (BldA) [Mass fraction] 93 % Becky Ireland AUTO PORTER.ATMOSPHERIC CHEMIST Work Phone: [facility] 12-27-2024 09:05-0400 Systolic blood pressure 122 mm[Hg] Becky Ireland AUTO PORTER.ATMOSPHERIC CHEMIST Work Phone: [facility] 12-21-2024 14:27-0500 Body temperature 99 [degF] Becky Ireland PIN CHASER-C Work Phone: [facility] 12-21-2024 14:27-0500 Diastolic blood pressure 67 mm[Hg] Becky Ireland PIN CHASER-C Work Phone: 3(371)566-[address] [place] [address] 12-21-2024 14:27-0500 Heart rate 108 /min Becky Ireland PIN CHASER-C Work Phone: 5(967)864-[address] [place] [address] 12-21-2024 14:27-0500 Respiratory rate 18 /min Becky Ireland PIN CHASER-C Work Phone: [facility] 12-21-2024 14:27-0500 SaO2% (BldA) [Mass fraction] 94 % Becky Ireland PIN CHASER-C Work Phone: [facility] 12-21-2024 14:27-0500 Systolic blood pressure 152 mm[Hg] Becky Ireland PIN CHASER-C Work Phone: [facility] 12-20-2024 06:00-0500 Body mass index (BMI) [Ratio] 26.2 kg/m2 Becky Ireland PIN CHASER-C Work Phone: 0(127)735-498937 [place] [address] 12-20-2024 06:00-0500 Body weight 74.2 kg Becky Palafoxagen PIN CHASER-C Work Phone: 3(318)498-797737 [place] [address] 12-19-2024 17:28-0500 Inhaled oxygen flow rate 2 L/min Becky Palafoxagen PIN CHASER-C Work Phone: 4(533)361-662037 [place] [address] 12-15-2024 09:12-0500 Body mass index (BMI) [Ratio] 23.44 kg/m2 Hilda Umana AUTO PORTER.ATMOSPHERIC CHEMIST Work Phone: [facility] 12-15-2024 09:12-0500 Body weight 65.77 kg Hilda Umana AUTO PORTER.ATMOSPHERIC CHEMIST Work Phone: [facility] 12-15-2024 09:12-0500 Diastolic blood pressure 70 mm[Hg] Hilda Singletonman AUTO PORTER.ATMOSPHERIC CHEMIST Work Phone: [facility] 12-15-2024 09:12-0500 Heart rate 68 /min Hilda Singletonman AUTO PORTER.ATMOSPHERIC CHEMIST Work Phone: [facility] 12-15-2024 09:12-0500 Systolic blood pressure 112 mm[Hg] Hilda Singletonman AUTO PORTER.ATMOSPHERIC CHEMIST Work Phone: [facility] 12-12-2024 07:12-0500 Body mass index (BMI) [Ratio] 23.95 kg/m2 Teresita Clutter PA-C Work Phone: [facility] 12-12-2024 07:12-0500 Body temperature 100.51 [degF] Teresita Clutter PA-C Work Phone: [facility] 12-12-2024 07:12-0500 Body weight 67.2 kg Teresita Clutter PA-C Work Phone: [facility] 12-12-2024 07:12-0500 Diastolic blood pressure 64 mm[Hg] Teresita Clutter PA-C Work Phone: [facility] 12-12-2024 07:12-0500 Heart rate 114 /min Teresita Clutter PA-C Work Phone: [facility] 12-12-2024 07:12-0500 Respiratory rate 16 /min Teresita Clutter PA-C Work Phone: [facility] 12-12-2024 07:12-0500 SaO2% (BldA) [Mass fraction] 98 % Teresita Clutter PA-C Work Phone: [facility] 12-12-2024 07:12-0500 Systolic blood pressure 108 mm[Hg] Teresita Clutter PA-C Work Phone: [facility] 11-28-2024 09:09-0500 Body mass index (BMI) [Ratio] 23.7 kg/m2 Houston Luis AUTO PORTER.ATMOSPHERIC CHEMIST Work Phone: [facility] 11-28-2024 09:09-0500 Body temperature 98.8 [degF] Houston Luis AUTO PORTER.ATMOSPHERIC CHEMIST Work Phone: [facility] 11-28-2024 09:09-0500 Body weight 66.5 kg Houston Luis AUTO PORTER.ATMOSPHERIC CHEMIST Work Phone: [facility] 11-28-2024 09:09-0500 Diastolic blood pressure 87 mm[Hg] [place] Luis AUTO PORTER.ATMOSPHERIC CHEMIST Work Phone: [facility] 11-28-2024 09:09-0500 Heart rate 67 /min Houston Luis AUTO PORTER.ATMOSPHERIC CHEMIST Work Phone: [facility] 11-28-2024 09:09-0500 SaO2% (BldA) [Mass fraction] 96 % Adelina Luis AUTO PORTER.ATMOSPHERIC CHEMIST Work Phone: [facility] 11-28-2024 09:09-0500 Systolic blood pressure 127 mm[Hg] [place] Luis AUTO PORTER.ATMOSPHERIC CHEMIST Work Phone: [facility] 11-23-2024 07:11-0500 Body mass index (BMI) [Ratio] 23.7 kg/m2 Lit Mcmullen AUTO PORTER.ATMOSPHERIC CHEMIST Work Phone: [facility] 11-23-2024 07:11-0500 Body temperature 98.6 [degF] Lit Mcmullen AUTO PORTER.ATMOSPHERIC CHEMIST Work Phone: [facility] 11-23-2024 07:11-0500 Body weight 66.5 kg Lit Mcmullen AUTO PORTER.ATMOSPHERIC CHEMIST Work Phone: [facility] 11-23-2024 07:11-0500 Diastolic blood pressure 70 mm[Hg] Lit Benedict AUTO PORTER.ATMOSPHERIC CHEMIST Work Phone: [facility] 11-23-2024 07:11-0500 Heart rate 84 /min Lit Benedict AUTO PORTER.ATMOSPHERIC CHEMIST Work Phone: [facility] 11-23-2024 07:11-0500 Respiratory rate 16 /min Lit Benedict AUTO PORTER.ATMOSPHERIC CHEMIST Work Phone: [facility] 11-23-2024 07:11-0500 SaO2% (BldA) [Mass fraction] 97 % Lit Mcmullen AUTO PORTER.ATMOSPHERIC CHEMIST Work Phone: [facility] 11-23-2024 07:11-0500 Systolic blood pressure 118 mm[Hg] Lit Benedict AUTO PORTER.ATMOSPHERIC CHEMIST Work Phone: [facility] 05-23-2024 08:50-0400 Body mass index (BMI) [Ratio] 23.31 kg/m2 Adelina Luis AUTO PORTER.ATMOSPHERIC CHEMIST Work Phone: [facility] 05-23-2024 08:50-0400 Body temperature 97.39 [degF] Adelina Luis AUTO PORTER.ATMOSPHERIC CHEMIST Work Phone: [facility] 05-23-2024 08:50-0400 Body weight 65.4 kg Adelina Luis AUTO PORTER.ATMOSPHERIC CHEMIST Work Phone: [facility] 05-23-2024 08:50-0400 Diastolic blood pressure 75 mm[Hg] Adelina Luis AUTO PORTER.ATMOSPHERIC CHEMIST Work Phone: [facility] 05-23-2024 08:50-0400 Heart rate 83 /min Adelina Luis AUTO PORTER.ATMOSPHERIC CHEMIST Work Phone: [facility] 05-23-2024 08:50-0400 SaO2% (BldA) [Mass fraction] 97 % Adelina Luis AUTO PORTER.ATMOSPHERIC CHEMIST Work Phone: [facility] 05-23-2024 08:50-0400 Systolic blood pressure 120 mm[Hg] Adelina Luis AUTO PORTER.ATMOSPHERIC CHEMIST Work Phone: [facility] 05-04-2024 14:27-0400 Diastolic blood pressure 90 mm[Hg] Becky Ireland AUTO PORTER.ATMOSPHERIC CHEMIST Work Phone: [facility] 05-04-2024 14:27-0400 Heart rate 79 /min Becky Haagen AUTO PORTER.ATMOSPHERIC CHEMIST Work Phone: [facility] 05-04-2024 14:27-0400 Respiratory rate 16 /min Becky Haagen AUTO PORTER.ATMOSPHERIC CHEMIST Work Phone: [facility] 05-04-2024 14:27-0400 SaO2% (BldA) [Mass fraction] 97 % Becky Haagen AUTO PORTER.ATMOSPHERIC CHEMIST Work Phone: [facility] 05-04-2024 14:27-0400 Systolic blood pressure 124 mm[Hg] Becky Haagen AUTO PORTER.ATMOSPHERIC CHEMIST Work Phone: [facility] 02-15-2024 08:03-0400 Body height 167.5 cm Becky Haagen AUTO PORTER.ATMOSPHERIC CHEMIST Work Phone: [facility] 02-15-2024 08:03-0400 Body mass index (BMI) [Ratio] 22.8 kg/m2 Becky Haagen AUTO PORTER.ATMOSPHERIC CHEMIST Work Phone: [facility] 02-15-2024 08:03-0400 Body weight 63.96 kg Becky Haagen AUTO PORTER.ATMOSPHERIC CHEMIST Work Phone: [facility] 02-15-2024 08:03-0400 Diastolic blood pressure 64 mm[Hg] Becky Haagen AUTO PORTER.ATMOSPHERIC CHEMIST Work Phone: [facility] 02-15-2024 08:03-0400 Heart rate 82 /min Becky Haagen AUTO PORTER.ATMOSPHERIC CHEMIST Work Phone: [facility] 02-15-2024 08:03-0400 Respiratory rate 16 /min Becky Haagen AUTO PORTER.ATMOSPHERIC CHEMIST Work Phone: [facility] 02-15-2024 08:03-0400 SaO2% (BldA) [Mass fraction] 96 % Becky Haagen AUTO PORTER.ATMOSPHERIC CHEMIST Work Phone: [facility] 02-15-2024 08:03-0400 Systolic blood pressure 110 mm[Hg] Becky Haagen AUTO PORTER.ATMOSPHERIC CHEMIST Work Phone: [facility] 01-25-2024 08:35-0400 Body height 172.72 cm No Primary Care Physician [facility] 01-25-2024 08:26-0400 Body mass index (BMI) [Ratio] 21.6 kg/m2 No Primary Care Physician [facility] 01-25-2024 08:26-0400 Body weight 64.41 kg No Primary Care Physician [facility] 01-25-2024 08:26-0400 Diastolic blood pressure 82 mm[Hg] No Primary Care Physician [facility] 01-25-2024 08:26-0400 Systolic blood pressure 115 mm[Hg] No Primary Care Physician [facility] 12-17-2023 07:49-0500 Body temperature 100.09 [degF] Lit Mcmullen AUTO P[employer]TER.ATMOSPHERIC CHEMIST Work Phone: [facility] 12-17-2023 07:49-0500 Body weight 65.23 kg Lit Mcmullen AUTO PORTER.ATMOSPHERIC CHEMIST Work Phone: [facility] 12-17-2023 07:49-0500 Diastolic blood pressure 82 mm[Hg] Lit Mcmullen AUTO PORTER.ATMOSPHERIC CHEMIST Work Phone: [facility] 12-17-2023 07:49-0500 Heart rate 100 /min Lit Mcmullen AUTO PORTER.ATMOSPHERIC CHEMIST Work Phone: [facility] 12-17-2023 07:49-0500 Respiratory rate 20 /min Lit Mcmullen AUTO PORTER.ATMOSPHERIC CHEMIST Work Phone: [facility] 12-17-2023 07:49-0500 SaO2% (BldA) [Mass fraction] 97 % Lit Mcmullen AUTO PORTER.ATMOSPHERIC CHEMIST Work Phone: [facility] 12-17-2023 07:49-0500 Systolic blood pressure 124 mm[Hg] Lit Mcmullen AUTO PORTER.ATMOSPHERIC CHEMIST Work Phone: [facility] 08-18-2023 12:02-0400 Body temperature 96.91 [degF] Sana Gilliam AUTO P[employer]TER.ATMOSPHERIC CHEMIST Work Phone: [facility] 08-18-2023 12:02-0400 Body weight 64.77 kg Sana Podlogar AUTO P[employer]TER.ATMOSPHERIC CHEMIST Work Phone: [facility] 08-18-2023 12:02-0400 Diastolic blood pressure 86 mm[Hg] Sana Podlogar AUTO PORTER.ATMOSPHERIC CHEMIST Work Phone: [facility] 08-18-2023 12:02-0400 Heart rate 86 /min Sana Podlogar AUTO PORTER.ATMOSPHERIC CHEMIST Work Phone: [facility] 08-18-2023 12:02-0400 Respiratory rate 16 /min Sana Podlogar AUTO P[employer]TER.ATMOSPHERIC CHEMIST Work Phone: [facility] 08-18-2023 12:02-0400 SaO2% (BldA) [Mass fraction] 95 % Sana Podlogar AUTO P[employer]TER.ATMOSPHERIC CHEMIST Work Phone: [facility] 08-18-2023 12:02-0400 Systolic blood pressure 124 mm[Hg] Saan Podlogar AUTO P[employer]TER.ATMOSPHERIC CHEMIST Work Phone: [facility] 08-15-2023 09:47-0400 Body temperature 99.3 [degF] Radha Ignacia AUT[employer] P[employer]TER.ATMOSPHERIC CHEMIST Work Phone: [facility] 08-15-2023 09:47-0400 Body weight 64.86 kg Radha Ignacia AUT[employer] P[employer]TER.ATMOSPHERIC CHEMIST Work Phone: [facility] 08-15-2023 09:47-0400 Diastolic blood pressure 80 mm[Hg] Radha [place] [employer] P[employer]TER.ATMOSPHERIC CHEMIST Work Phone: [facility] 08-15-2023 09:47-0400 Heart rate 84 /min Radha [place] AUT[employer] P[employer]TER.ATMOSPHERIC CHEMIST Work Phone: [facility] [facility] 08-15-2023 09:47-0400 Respiratory rate 16 /min Radha [place] AUTO PORTER.ATMOSPHERIC CHEMIST Work Phone: [facility] 08-15-2023 09:47-0400 SaO2% (BldA) [Mass fraction] 98 % Radha [place] AUTO PORTER.ATMOSPHERIC CHEMIST Work Phone: [facility] 08-15-2023 09:47-0400 Systolic blood pressure 128 mm[Hg] Radha Hillcalf AUTO PORTER.ATMOSPHERIC CHEMIST Work Phone: [facility] 05-01-2023 07:55-0400 Body height 167 cm [place] Luis AUTO PORTER.ATMOSPHERIC CHEMIST Work Phone: [facility] 05-01-2023 07:55-0400 Body temperature 96.91 [degF] Adelina Ulis AUTO PORTER.ATMOSPHERIC CHEMIST Work Phone: [facility] 05-01-2023 07:55-0400 Body weight 66.45 kg [place] Luis AUTO PORTER.ATMOSPHERIC CHEMIST Work Phone: [facility] 05-01-2023 07:55-0400 Diastolic blood pressure 66 mm[Hg] Adelina Luis AUTO PORTER.ATMOSPHERIC CHEMIST Work Phone: [facility] 05-01-2023 07:55-0400 Heart rate 74 /min [place] Luis AUTO PORTER.ATMOSPHERIC CHEMIST Work Phone: [facility] 05-01-2023 07:55-0400 Systolic blood pressure 95 mm[Hg] Adelina Luis AUTO PORTER.ATMOSPHERIC CHEMIST Work Phone: [facility] 01-19-2023 10:48-0400 Body height 172.72 cm No Primary Care Physician [facility] 01-19-2023 10:45-0400 Body mass index (BMI) [Ratio] 22.1 kg/m2 No Primary Care Physician [facility] 01-19-2023 10:45-0400 Body weight 66.22 kg No Primary Care Physician [facility] 01-19-2023 10:45-0400 Diastolic blood pressure 89 mm[Hg] No Primary Care Physician [facility] 01-19-2023 10:45-0400 Systolic blood pressure 147 mm[Hg] No Primary Care Physician [facility] 11-10-2022 14:09-0500 Body height 167 cm Adelina Lusi AUTO PORTER.ATMOSPHERIC CHEMIST Work Phone: [facility] 11-10-2022 14:09-0500 Body temperature 97.59 [degF] [place] Luis AUTO PORTER.ATMOSPHERIC CHEMIST Work Phone: [facility] 11-10-2022 14:09-0500 Body weight 67.81 kg [place] Luis AUTO PORTER.ATMOSPHERIC CHEMIST Work Phone: [facility] 11-10-2022 14:09-0500 Diastolic blood pressure 82 mm[Hg] Adelina Luis AUTO PORTER.ATMOSPHERIC CHEMIST Work Phone: [facility] 11-10-2022 14:09-0500 Heart rate 86 /min Adelina Luis AUTO PORTER.ATMOSPHERIC CHEMIST Work Phone: [facility] 11-10-2022 14:09-0500 SaO2% (BldA) [Mass fraction] 95 % Adelina Luis AUTO PORTER.ATMOSPHERIC CHEMIST Work Phone: [facility] 11-10-2022 14:09-0500 Systolic blood pressure 111 mm[Hg] Adelina Luis AUTO PORTER.ATMOSPHERIC CHEMIST Work Phone: [facility] 05-12-2022 08:05-0400 Body temperature 98.01 [degF] [place] Luis AUTO PORTER.ATMOSPHERIC CHEMIST Work Phone: [facility] 05-12-2022 08:05-0400 Body weight 64.18 kg [place] Luis AUTO PORTER.ATMOSPHERIC CHEMIST Work Phone: [facility] 05-12-2022 08:05-0400 Diastolic blood pressure 72 mm[Hg] Adelina Luis AUTO PORTER.ATMOSPHERIC CHEMIST Work Phone: [facility] 05-12-2022 08:05-0400 Heart rate 68 /min Adelina Luis AUTO PORTER.ATMOSPHERIC CHEMIST Work Phone: [facility] 05-12-2022 08:05-0400 Systolic blood pressure 101 mm[Hg] [place] Luis AUTO PORTER.ATMOSPHERIC CHEMIST Work Phone: [facility] 01-07-2022 15:50-0400 Body height 172.[address] Femi Elias III Work Phone: [facility] Work Phone: 01-07-2022 15:50-0400 Body mass index (BMI) [Ratio] 22.1 kg/m2 Dr. Femi Elias III Work Phone: [facility] Work Phone: 01-07-2022 15:50-0400 Body weight 66.[address] Femi Elias III Work Phone: [facility] Work Phone: 01-07-2022 15:50-0400 Diastolic blood pressure 80 mm[Hg] Dr. Femi Elias III Work Phone: [facility] Work Phone: 01-07-2022 15:50-0400 Systolic blood pressure 120 mm[Hg] Dr. Femi Elias III Work Phone: [facility] Work Phone: 05-21-2021 10:44-0400 Body mass index (BMI) [Ratio] 24.09 kg/m2 Jignesh Vivas MD Work Phone: [facility] 05-21-2021 10:44-0400 Body temperature 97.59 [degF] Jignesh Vivas MD Work Phone: [facility] 05-21-2021 10:44-0400 Body weight 66.68 kg Jignesh Vivas MD Work Phone: [facility] 05-21-2021 10:44-0400 Diastolic blood pressure 75 mm[Hg] Jignesh Vivas MD Work Phone: [facility] 05-21-2021 10:44-0400 Heart rate 74 /min Jignesh Vivas MD Work Phone: [facility] 05-21-2021 10:44-0400 Systolic blood pressure 116 mm[Hg] Jignesh Vivas MD Work Phone: [facility] 05-21-2021 09:02-0400 Body mass index (BMI) [Ratio] 24.16 kg/m2 Annika Shannon PA-C Work Phone: [facility] 05-21-2021 09:02-0400 Body temperature 97.59 [degF] Annika Shiva PA-C Work Phone: [facility] 05-21-2021 09:02-0400 Body weight 66.86 kg Annika Shiva PA-C Work Phone: [facility] 05-21-2021 09:02-0400 Diastolic blood pressure 75 mm[Hg] Annika Shiva PA-C Work Phone: [facility] 05-21-2021 09:02-0400 Heart rate 74 /min Annika Shiva PA-C Work Phone: [facility] 05-21-2021 09:02-0400 Respiratory rate 14 /min Annika Shiva PA-C Work Phone: [facility] 05-21-2021 09:02-0400 SaO2% (BldA) [Mass fraction] 98 % Annika Shiva PA-C Work Phone: [facility] 05-21-2021 09:02-0400 Systolic blood pressure 116 mm[Hg] Annika Shiva PA-C Work Phone: [facility] Encounters Encounter Date Encounter Type Care Provider Facility Start: 05-08-2025 End: 05-08-2025 ambulatory Becky candida Facility[place] Start: 05-08-2025 End: 05-08-[address] Nydia Bains MD -[facility] Work Phone: Start: 05-08-2025 End: 05-08-[address] Nydia Bains MD [facility] Start: 05-03-2025 ambulatory COY Kulkarni ity:[facility] Start: 05-03-2025 End: 05-03-2025 Subsequent hospital visit by physician [facility] W[facility] (I-Stat) Work Phone: Cat Scan Comment on above: Parapneumonic effusi on [J18.9, J91.8] Start: 04-27-2025 End: 04-27-2025 Telephone encounter Coy Loomis APRN.ATMOSPHERIC CHEMIST Work Phone: Pulmonary Medicine Comment on above: Request Outside [facility] Records Start: 04-18-2025 End: 04-18-2025 Orders Only Coy Loomis APRN.ATMOSPHERIC CHEMIST Work Phone: Pulmonary Medicine Comment on above: Parapneumonic effusi on (Primary Dx) Start: 04-14-2025 End: 04-14-2025 Patient encounter procedure Coy Loomis APRN.ATMOSPHERIC CHEMIST Work Phone: Pulmonary Medicine Comment on above: Parapneumonic effusi on (Primary Dx); Rheumatoid arthritis involving multiple sites with positive rheumatoid factor (HCC) Start: 04-14-2025 End: 04-14-2025 ambulatory COY LOOMIS Facility:[facility] Start: 04-12-2025 End: 04-12-2025 Telephone encounter Coy Loomis APRN.ATMOSPHERIC CHEMIST Work Phone: Pulmonary Medicine Comment on above: Talk to provider Start: 04-05-2025 End: 04-10-2025 Telephone encounter Coy Loomis APRN.ATMOSPHERIC CHEMIST Work Phone: Pulmonary Medicine Comment on above: Patient Question Start: 03-28-2025 [facility] Facility :[facility] Start: 03-28-2025 End: 03-28-2025 Subsequent hospital visit by physician Melanie [facility] Perla Aguirre Work Phone: Radiology Comment on above: Parapneumonic effusi on [J18.9, J91.8] Start: 02-24-2025 End: 02-24-2025 Telephone encounter Sis Stockton DO Work Phone: Hematology/Oncology Comment on above: Results Start: 02-23-2025 End: 02-23-2025 ambulatory [facility] Facility:[facility] Start: 02-19-2025 End: 02-20-2025 Telephone encounter Sis Stockton DO Work Phone: Hematology/Oncology Comment on above: Results Start: 02-15-2025 End: 02-15-2025 ambulatory [facility] Facility:[facility] Start: 02-15-2025 End: 02-15-2025 Discharged Recurring Katie MABRY -Physical Therapy Work Phone: Start: 02-14-2025 End: 02-14-2025 Patient encounter procedure Austen Carter MD Work Phone: Pulmonary Medicine Comment on above: Parapneumonic effusi on (Primary Dx); History of pneumonia; History of septic arthritis; Rheumatoid arthritis involving multiple sites with positive rheumatoid factor (HCC) Start: 02-14-2025 End: 02-14-2025 ambulatory [facility] Facility:[facility] Start: 02-13-2025 End: 04-15-2025 Follow-up encounter Becky Ireland APRN.CNP Work Phone: Family [facility] Start: 02-13-2025 Non-patient / Non-visit Carlos Khan nd DO -[facility] Start: 02-13-2025 End: 02-13-2025 Admission to same day surgery center Carlos Harrington DO -Endoscopy Work Phone: Start: 02-13-2025 End: 02-13-2025 ambulatory [facility] PIN CHASER-C Work Phone: [facility] Work Phone: Start: 02-10-2025 End: 02-10-2025 ambulatory [facility] Facility:[facility] Start: 02-09-2025 Registered Recurring Katie MABRY -Physical Therapy Work Phone: Start: 02-08-2025 End: 02-08-2025 ambulatory [facility] Facility:[facility] Start: 02-07-2025 ambulatory [facility] Facility :[facility] Start: 02-07-2025 End: 02-07-2025 Subsequent hospital visit by physician Venessa [facility] Wstr (I-Stat) Work Phone: Cat Scan Comment on above: Iron deficiency anem ia, unspecified iron deficiency anemia type [D50.9] Start: 02-06-2025 End: 02-06-2025 Orders Only Anaya Yates [facility] Radiology Comment on above: Pleural effusion (Pr imary Dx) Start: 02-04-2025 End: 02-04-2025 ambulatory [facility] Facility:[facility] Start: 02-03-2025 End: 02-03-2025 Patient encounter procedure Merrill Galarza [place] -[facility] Work Phone: Start: 02-03-2025 End: 04-05-2025 Orders Only Austen Carter MD Work Phone: Pulmonary Medicine Comment on above: Pleural effusion on right (Primary Dx) Start: 02-01-[address] [facility] :[facility] Start: 02-01-2025 End: 02-01-2025 Subsequent hospital visit by physician [facility] Work Phone: [facility] Comment on above: Elevated C-reactive protein (CRP) [R79.82] Start: 02-01-2025 End: 04-03-2025 Follow-up encounter Becky Ireland APRN.CNP Work Phone: [facility] [place] Start: 01-31-2025 End: 01-31-2025 ambulatory [facility] Facility:[facility] Start: 01-31-2025 End: 01-31-2025 Office outpatient visit 25 minutes Becky Ireland APRN.CNP Work Phone: [facility] [place] Comment on above: SOB (shortness of br eath) (Primary Dx); Tachycardia; Elevated sed rate; Elevated C-reactive protein (CRP); Pleural effusion; Anemia, unspecified type Start: 01-30-2025 End: 01-31-2025 Telephone encounter Becky Ireland APRN.CNP Work Phone: [facility] [place] Comment on above: PIN CHASER would like to felicity k to Becky Ireland Start: 01-27-2025 End: 01-27-2025 ambulatory [facility] Facility:[facility] Start: 01-26-2025 End: 01-26-2025 ambulatory Fran Gomez Work Phone: Hematology/Oncology Comment on above: Malignant neoplasm o f central portion of right breast in female, estrogen receptor positive (HCC) (Primary Dx); Iron deficiency anemia, unspecified iron deficiency anemia type; Pleural effusion Start: 01-26-2025 End: 01-26-2025 Patient encounter procedure Fran Gomez Work Phone: Hematology/Oncology Start: 01-23-2025 End: 01-23-2025 Office outpatient visit 25 minutes Becky Ireland APRN.ATMOSPHERIC CHEMIST Work Phone: [facility] [place] Comment on above: Blood in stool (Prim dominick Dx); Anemia, unspecified type; Tachycardia; Essential (primary) hypertension Start: 01-23-2025 End: 01-23-2025 ambulatory [facility] Facility:[facility] Start: 01-23-2025 End: 01-24-2025 Telephone encounter Becky Ireland APRN.ATMOSPHERIC CHEMIST Work Phone: [facility] [place] Start: 01-16-2025 End: 01-16-2025 Follow-up encounter Becky Ireland APRN.ATMOSPHERIC CHEMIST Work Phone: [facility] [place] Start: 01-13-2025 End: 01-13-2025 Emergency department patient visit Becky JOHNSON Work Phone: -Emergency Department Work Phone: Start: 01-13-2025 End: 01-13-2025 [facility] Start: 01-12-2025 End: 01-12-2025 Telephone encounter Becky Ireland APRN.ATMOSPHERIC CHEMIST Work Phone: [facility] [place] Comment on above: Patient Update Start: 01-11-2025 End: 01-11-2025 Follow-up encounter Becky Ireland APRN.ATMOSPHERIC CHEMIST Work Phone: [facility] [place] Start: 01-10-2025 End: 01-10-2025 Subsequent hospital visit by physician Melanie [facility] [place] Work Phone: Radiology Comment on above: Pleural effusion on right [J90] Start: 01-10-2025 End: 01-10-2025 ambulatory [facility] Facility:[facility] Start: 01-10-2025 End: 01-10-2025 Office outpatient visit 25 minutes Becky Ireland APRN.ATMOSPHERIC CHEMIST Work Phone: [facility] [place] Comment on above: Hypotension, unspeci fied hypotension type (Primary Dx); Tachycardia; Pleural effusion on right; Essential (primary) hypertension; Fatigue, unspecified type; Pyogenic arthritis of multiple sites, due to unspecified organism (HCC) Start: 01-10-2025 End: 01-10-2025 [facility] Facility:[facility] Start: 01-09-2025 End: 01-10-2025 Telephone encounter Becky Ireland APRN.ATMOSPHERIC CHEMIST Work Phone: [facility] [place] Comment on above: bp update Start: 01-05-2025 End: 01-06-2025 Telephone encounter Becky Ireland APRN.ATMOSPHERIC CHEMIST Work Phone: [facility] [place] Comment on above: Patient Update Start: 01-02-2025 End: 01-02-2025 Telephone encounter Becky Ireland APRN.ATMOSPHERIC CHEMIST Work Phone: [facility] [place] Comment on above: Patient Update; Neena ent Question Start: 12-28-2024 End: 12-28-2024 Telephone encounter Becky Ireland APRN.ATMOSPHERIC CHEMIST Work Phone: [facility] [place] Comment on above: [facility] OT POC and co ncern of BP; Results Start: 12-27-2024 End: 12-27-2024 Emergency department patient visit Becky JOHNSON Work Phone: -Emergency Department Work Phone: Start: 12-27-2024 End: 12-27-2024 Office outpatient visit 25 minutes Becky Ireland APRN.ATMOSPHERIC CHEMIST Work Phone: [facility] [place] Comment on above: Fever in other disea ses (Primary Dx); 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 [place] Start: 12-23-2024 End: 12-26-2024 Telephone encounter Becky Ireland AUTO PORTER.ATMOSPHERIC CHEMIST Work Phone: [facility] [place] Comment on above: Plan of care for ski lled nursing Transitions of Care ([facility] Discharged 12/21/24) Start: 12-22-2024 End: 01-03-2025 Telephone encounter Becky Ireland AUTO PORTER.ATMOSPHERIC CHEMIST Work Phone: [facility] Comment on above: Home Health Request Start: 12-21-2024 Non-patient / Non-visit Dr. Mauricio bender MD -[facility] Work Phone: Start: 12-20-2024 Non-patient / Non-visit Dr. Mahnaz Hernandez MD -[facility] Work Phone: Start: 12-19-2024 End: 02-18-2025 Follow-up encounter Emma Montelongo AUTO PORTER.ATMOSPHERIC CHEMIST Work Phone: [facility] Start: 12-19-2024 Non-patient / Non-visit Dr. Mahnaz Hernandez MD -[facility] Work Phone: Start: 12-18-2024 Non-patient / Non-visit Dr. Mahnaz Hernandez MD -[facility] Work Phone: Start: 12-17-2024 Non-patient / Non-visit Dr. Mahnaz Hernandez MD -[facility] Work Phone: Start: 12-16-2024 End: 02-15-2025 Follow-up encounter Hilda Umana AUTO PORTER.ATMOSPHERIC CHEMIST Work Phone: [facility] Start: 12-16-2024 Non-patient / Non-visit Dr. Mahnaz Hernandez MD -[facility] Work Phone: Start: 12-15-2024 ambulatory Becky candida Facility :[facility] Start: 12-15-2024 End: 12-21-2024 Evaluation and management of inpatient Dr. Mauricio Chirinos MD -Medical Surgical 3 Work Phone: Start: 12-15-2024 End: 12-15-2024 ambulatory [facility] Facility:[facility] Start: 12-15-2024 End: 12-15-2024 Subsequent hospital visit by physician [facility] Work Phone: Radiology Comment on above: Sore throat [J02.9] Start: 12-15-2024 End: 02-14-2025 Follow-up encounter Hilda Umana APRN.CNP Work Phone: [facility] [place] Start: 12-15-2024 End: 12-15-2024 Subsequent hospital visit by physician Melanie [facility] [place] Work Phone: Radiology Comment on above: Lymphadenopathy [R59 .1] Start: 12-15-2024 End: 12-15-2024 ambulatory [facility] Facility:[facility] Start: 12-15-2024 End: 12-15-2024 ambulatory [facility] Facility:[facility] Start: 12-15-2024 End: 12-15-2024 Office outpatient visit 40 minutes Hilda Umana APRN.CNP Work Phone: [facility] [place] Comment on above: Sore throat (Primary Dx); Lymphadenopathy; Painful breathing; Rheumatoid arthritis flare (HCC); Acute pain of both shoulders; Swelling of left wrist; Oropharyngeal dysphagia; Exposure to influenza; History of breast cancer; Malaise; Arthralgia, unspecified joint; Throat fullness; Nausea; Chills (without fever) Start: 12-14-2024 End: 12-14-2024 Telephone encounter Becky Ireland APRN.CNP Work Phone: [facility] [place] Comment on above: Patient Update; Neena ent Question Start: 12-12-2024 End: 12-12-2024 ambulatory [facility] Facility:[facility] Start: 12-12-2024 End: 12-12-2024 Office outpatient new 30 minutes Teresita Marsh PA-C Work Phone: [facility] Comment on above: Sore throat (Primary Dx); Acute pharyngitis, unspecified etiology; Acute laryngitis Start: 11-28-2024 End: 11-28-2024 ambulatory Adelina Luis APRN.ATMOSPHERIC CHEMIST Work Phone: Hematology/Oncology Comment on above: Malignant neoplasm o f central portion of right breast in female, estrogen receptor positive (HCC) (Primary Dx) Start: 11-28-2024 End: 11-28-2024 Patient encounter procedure Adelina Luis APRN.ATMOSPHERIC CHEMIST Work Phone: Hematology/Oncology Start: 11-23-2024 End: 11-23-2024 Telephone encounter Lit Mcmullen APRN.ATMOSPHERIC CHEMIST Work Phone: [facility] Comment on above: Medication Problem Start: 11-23-2024 End: 11-23-2024 ambulatory [facility] Facility:[facility] Start: 11-23-2024 End: 11-23-2024 Patient encounter procedure Lit Mcmullen APRN.ATMOSPHERIC CHEMIST Work Phone: [facility] Comment on above: Influenza A (Primary Dx); URI, acute; Sore throat Start: 10-04-2024 End: 10-06-2024 Refill Adelina Luis APRN.ATMOSPHERIC CHEMIST Work Phone: Hematology/Oncology Comment on above: Refill Request Start: 06-21-2024 End: 06-24-2024 ambulatory Anupam Velasco Work Phone: Podiatry Comment on above: liver function panel Start: 06-21-2024 End: 06-24-2024 E-mail encounter from caregiver Anupam Velasco Work Phone: Podiatry Start: 06-17-2024 End: 06-17-2024 ambulatory ANUPAMNARCISA VELASCO Facility:[facility] Start: 05-31-2024 End: 06-05-2024 Telephone encounter Anupam Velasco Work Phone: Podiatry Comment on above: Patient Update Start: 05-23-2024 End: 05-23-2024 ambulatory Adelina Luis APRN.ATMOSPHERIC CHEMIST Work Phone: Hematology/Oncology Comment on above: Malignant neoplasm o f central portion of right breast in female, estrogen receptor positive (HCC) (Primary Dx) Start: 05-23-2024 End: 05-23-2024 Patient encounter procedure Adelina Toby MENENDEZ.ATMOSPHERIC CHEMIST Work Phone: Hematology/Oncology Start: 05-05-2024 ambulatory Anupam Wooten flaca Work Phone: Podiatry Comment on above: Oneal Pena Start: 05-05-2024 E-mail encounter fro m caregiver Anupam Mejiacamilo Work Phone: Podiatry Start: 05-04-2024 End: 05-04-2024 Office outpatient visit 25 minutes Becky Ireland APRN.CNP Work Phone: [facility] [place] Comment on above: Dermatitis of lip (P rimary Dx); Angular cheilitis Start: 05-04-2024 Telephone encounter Becky tirado APRN.CNP Work Phone: [facility] Comment on above: Future Appointment Start: 04-12-2024 End: 04-12-2024 Patient encounter procedure Anupam Mejiacamilo Work Phone: Podiatry Comment on above: Onychodystrophy (Tonia wilmar Dx); Hammer toes of both feet Start: 02-15-2024 End: 02-15-2024 Patient encounter procedure Becky Ireland APRN.ATMOSPHERIC CHEMIST Work Phone: [facility] [place] Comment on above: Wellness examination (Primary Dx); Toenail deformity; Rheumatoid arthritis involving multiple sites, unspecified whether rheumatoid factor present (HCC); Malignant neoplasm of central portion of right breast in female, estrogen receptor positive (HCC) Start: 02-15-2024 End: 02-15-2024 Patient encounter status Becky Ireland APRN.ATMOSPHERIC CHEMIST Work Phone: [facility] Work Phone: Start: 01-25-2024 End: 01-25-2024 ambulatory No Primary Care Physician [facility] Work Phone: Start: 01-25-2024 End: 01-25-2024 Patient encounter procedure No Primary Care Physician [facility]-Laboratory, Specimen Work Phone: Start: 01-25-2024 End: 01-25-2024 Patient encounter procedure No Primary Care Physician [facility] Work Phone: Start: 12-17-2023 End: 12-17-2023 Patient encounter procedure Lit Mcmullen AUTO PORTER.ATMOSPHERIC CHEMIST Work Phone: [facility] Comment on above: Strep throat (Primar y Dx) Start: 08-18-2023 End: 08-18-2023 Patient encounter procedure Sana Gilliam AUTO PORTER.ATMOSPHERIC CHEMIST Work Phone: [facility] Comment on above: Sinus pressure (Prim dominick Dx) Start: 08-15-2023 End: 08-15-2023 Patient encounter procedure Radha Beth AUTO PORTER.ATMOSPHERIC CHEMIST Work Phone: [facility] Comment on above: Acute cough (Primary Dx) Start: 05-01-2023 End: 05-01-2023 ambulatory Adelina Luis AUTO PORTER.ATMOSPHERIC CHEMIST Work Phone: Hematology/Oncology Comment on above: Malignant neoplasm o f central portion of right breast in female, estrogen receptor positive (HCC) (Primary Dx) Start: 05-01-2023 End: 05-01-2023 Patient encounter procedure Adelina Luis AUTO PORTER.ATMOSPHERIC CHEMIST Work Phone: [facility] Start: 01-19-2023 End: 01-19-2023 ambulatory No Primary Care Physician [facility] Work Phone: Start: 01-19-2023 End: 01-19-2023 Patient encounter procedure No Primary Care Physician [facility]-Laboratory, Specimen Start: 01-19-2023 End: 01-19-2023 Patient encounter procedure No Primary Care Physician [facility] Start: 11-10-2022 End: 11-10-2022 ambulatory Adelina Luis AUTO PORTER.ATMOSPHERIC CHEMIST Work Phone: Hematology/Oncology Comment on above: Malignant neoplasm o f central portion of right breast in female, estrogen receptor positive (HCC) (Primary Dx) Start: 11-10-2022 End: 11-10-2022 Patient encounter procedure Adelina Luis AUTO PORTER.ATMOSPHERIC CHEMIST Work Phone: [facility] Start: 10-10-2022 Refill Adelina ying AUTO PORTER.ATMOSPHERIC CHEMIST Work Phone: Hematology/Oncology Comment on above: Refill Request Start: 05-22-2022 Telephone encounter Adelina rae AUTO PORTER.ATMOSPHERIC CHEMIST Work Phone: Hematology/Oncology Comment on above: Patient Question (me dication ) Start: 05-12-2022 End: 05-12-2022 ambulatory Adelina Luis AUTO PORTER.ATMOSPHERIC CHEMIST Work Phone: Hematology/Oncology Comment on above: Malignant neoplasm o f central portion of right breast in female, estrogen receptor positive (HCC) (Primary Dx) Start: 05-12-2022 End: 05-12-2022 Patient encounter procedure Adelina Luis AUTO PORTER.ATMOSPHERIC CHEMIST Work Phone: [facility] Start: 01-07-2022 End: 01-07-[address] Femi Elias III Work Phone: [facility], Specimen Start: 01-07-2022 End: 01-07-[address] Femi Elias III Work Phone: [facility] Start: 10-14-2021 ambulatory PREET L ADAMS Facility:[facility] Start: 10-08-2021 ambulatory PREET L ADAMS Facility:[facility] Start: 09-30-2021 End: 09-30-2021 ambulatory PREET L ADAMS Facility:[facility] Start: 09-26-2021 ambulatory PREET L ADAMS Facility:[facility] Start: 08-23-2021 ambulatory FEMI CEBUL Facility:[facility] Start: 08-16-2021 End: 08-16-2021 ambulatory FEMI VELOZBULani Facility:[facility] Start: 06-25-2021 ambulatory FEMI CEBUL Facility:[facility] Start: 05-28-2021 ambulatory FEMI ELIAS Facility:[facility] Start: 05-21-2021 ambulatory JIGNESH Nguyen ty:[facility] Start: 05-21-2021 End: 05-21-2021 Office outpatient visit 15 minutes Annika Shannon PA-C Work Phone: Department of Plastic Surgery Comment on above: S/P reconstruction p rocedure (Primary Dx); Abdominal wall seroma, initial encounter Malignant neoplasm o f right breast in female, estrogen receptor positive, unspecified site of breast (Primary Dx) Start: 09-19-2020 End: 09-19-2020 Subsequent hospital visit by physician Femi Elias [facility] Start: 01-20-2019 Patient encounter procedure [facility] Start: 01-14-2019 Patient encounter procedure [facility] Start: 01-14-2019 Patient encounter procedure [facility] Start: 01-13-2019 Patient encounter procedure [facility] Start: 01-12-2019 Patient encounter procedure [facility] Procedures Date Procedure Procedure Detail Performing Clinician Start: 03-28-2025 Radiologic exam chest 2 views Austen Carter MD Work Phone: Start: 02-13-2025 Colonoscopy Becky Ireland NP-C Work Phone: Start: 02-01-2025 Ct angiography chest w/contrast/noncontrast Becky Ireland APRN.ATMOSPHERIC CHEMIST Work Phone: Start: 01-13-2025 Plain chest X-ray Becky Ireland PIN CHASER-C Work Phone: Start: 01-13-2025 Estimated creatinine clearance Becky Ireland PIN CHASER-C Work Phone: Start: 01-10-2025 Radiologic exam chest 2 views Becky Ireland APRN.ATMOSPHERIC CHEMIST Work Phone: Start: 12-27-2024 Blood culture Becky Ireland PIN CHASER-C Work Phone: Start: 12-27-2024 Urine culture Becky Ireland PIN CHASER-C Work Phone: Start: 12-27-2024 CT angiography of chest with contrast Becky Ireland PIN CHASER-C Work Phone: Start: 12-27-2024 X-ray of chest, PA and lateral views Becky Ireland PIN CHASER-C Work Phone: Start: 12-19-2024 Repair of musculotendinous cuff of shoulder Becky Ireland PIN CHASER-C Work Phone: Start: 12-19-2024 Acid fast bacilli culture Becky Haagen PIN CHASER-C Work Phone: Start: 12-19-2024 Anaerobic microbial culture Becky Haagen PIN CHASER-C Work Phone: Start: 12-19-2024 Gram stain microscopy Becky Haagen PIN CHASER- C Work Phone: Start: 12-19-2024 Microbial culture, routine Becky Haage n PIN CHASER-C Work Phone: Start: 12-18-2024 CT of limb regions Becky Ireland PIN CHASER-C Work Phone: Start: 12-17-2024 Acid fast bacilli culture Becky Haagen PIN CHASER-C Work Phone: Start: 12-17-2024 Anaerobic microbial culture Becky Haagen PIN CHASER-C Work Phone: Start: 12-17-2024 Fungus stain method Becky Ireland PIN CHASER-C Work Phone: Start: 12-17-2024 Gram stain microscopy Becky Ireland PIN CHASER- C Work Phone: Start: 12-17-2024 Microbial culture, routine Becky Haage n PIN CHASER-C Work Phone: Start: 12-17-2024 Mycology culture Becky Haagen PIN CHASER-C Work Phone: Start: 12-17-2024 Procedure on shoulder joint Becky Ireland PIN CHASER-C Work Phone: Start: 12-16-2024 Anaerobic microbial culture Becky Haagen PIN CHASER-C Work Phone: Start: 12-16-2024 Fluoroscopic guidance Becky Ireland PIN CHASER- C Work Phone: Start: 12-16-2024 Gram stain microscopy Becky Ireland PIN CHASER- C Work Phone: Start: 12-16-2024 Microbial culture, routine Becky Jacques n PIN CHASER-C Work Phone: Start: 12-16-2024 End: 12-16-2024 Plain X-ray of shoulder Becky Ireland N P-C Work Phone: Start: 12-16-2024 Incision and drainage of abscess Becky Ireland PIN CHASER-C Work Phone: Start: 12-15-2024 CT of upper limb without contrast Becky Ireland PIN CHASER-C Work Phone: Start: 12-15-2024 Plain x-ray of wrist Becky Ireland PIN CHASER-C Work Phone: Start: 12-15-2024 Us soft tissue head & neck real time imge docm Hilda Umana AUTO PORTER.ATMOSPHERIC CHEMIST Work Phone: Start: 12-15-2024 Anaerobic microbial culture Becky Haagen PIN CHASER-C Work Phone: Start: 12-15-2024 Blood culture Becky Ireland PIN CHASER-C Work Phone: Start: 12-15-2024 Gram stain microscopy Becky Ireland PIN CHASER- C Work Phone: Start: 12-15-2024 Microbial culture, body fluid Becky Palafoxagen PIN CHASER-C Work Phone: Start: 12-15-2024 Radiologic exam chest 2 views Hilda Umana AUTO PORTER.ATMOSPHERIC CHEMIST Work Phone: Start: 12-15-2024 COVID & INFLUENZA A/B & RSV PCR, ROUTINE Hilda Umana AUTO PORTER.ATMOSPHERIC CHEMIST Work Phone: Start: 12-12-2024 STREP A MOLECULAR (POC) Mohan Read MD Work Phone: Start: 11-23-2024 INFLUENZA A&B MOLECULAR (POC) Lit Mcmullen AUTO PORTER.ATMOSPHERIC CHEMIST Work Phone: Start: 11-23-2024 STREP A MOLECULAR (POC) [facility] Start: 05-05-2024 Lipid 1996 panel - Serum or Plasma Anupam Velasco Work Phone: Start: 12-17-2023 STREP A MOLECULAR (POC) [facility] Provider Start: 05-09-2022 Adult depression screening assessment Adelina Luis AUTO PORTER.ATMOSPHERIC CHEMIST Work Phone: Start: 09-24-2020 H/O: surgery S/P reconstruction procedure Annika Shannon PA-C Work Phone: Start: 08-21-2020 Lipid 1996 panel - Serum or Plasma Radha Beth AUTO PORTER.ATMOSPHERIC CHEMIST Work Phone: Start: 10-17-2019 Colonoscopy Adelina Luis AUTO PORTER.ATMOSPHERIC CHEMIST Work Phone: H/O: surgery S/P reconstructi on procedure Annika Shannon PA-C Work Phone: History of tonsillectomy History of tonsi llectomy Dr. Femi Elias III Work Phone: Plan of Treatment Date Care Activity Detail Author Start: 07-11-2030 DTaP/Tdap/Td vaccine (2 - Td) DTaP/Tdap/Td vaccine (2 - Td) [place] Start: 07-11-2030 Urine microalbumin profile [facility] Start: 05-05-2029 Lipid panel Lipid Screening [facility] Start: 01-11-2028 Diabetes Screening Diabetes Screening [facility] Start: 12-15-2027 Diabetes Screening Diabetes Screening [facility] Start: 05-05-2027 Diabetes Screening Diabetes Screening [facility] Start: 02-14-2026 BP Controlled (<130/80) BP Controlled (<130/80) [facility] Start: 02-14-2026 zzBP Controlled (<130/80) (Retired) zzBP Controlled (<130/80) (Retired) [facility] Start: 01-31-2026 Annual PCP Team Chronic Disease Visit Annual PCP Team Chronic Disease Visit [facility] Start: 01-31-2026 BP Controlled (<130/80) BP Controlled (<130/80) [facility] Start: 01-23-2026 Annual PCP Team Chronic Disease Visit Annual PCP Team Chronic Disease Visit [facility] Start: 01-14-2026 Screening for malignant neoplasm of colon Fecal Occult Blood [facility] Start: 12-31-2025 HPV TESTING HPV TESTING [facility] Start: 12-31-2025 PAP TESTING PAP TESTING [facility] Start: 12-31-2025 Screening for malignant neoplasm of cervix [facility] Start: 08-21-2025 Lipid 1996 panel - Serum or Plasma Lipid Screening [facility] Start: 08-21-2025 Lipid panel Lipid Screening [facility] Start: 08-21-2025 LIPID SCREEN LIPID SCREEN [facility] Start: 06-19-2025 Influenza vaccination Influenza Vaccine (#1) [facility] Start: 05-29-2025 End: 05-29-2025 ambulatory 05/29/2025 8:00 AM EDT Visit (SP) Office Hematology/Oncology [address] [place] [address] Adelina Luis APRN.ATMOSPHERIC CHEMIST [address] [place] [address] 6 MTH OV* Hematology/Oncology Comment on above: 6 MTH OV* Start: 05-03-2025 End: 05-03-2025 Patient encounter procedure 05/03/2025 3:40 PM EDT Appointment Cat Scan [address] [place] [address] Parapneumonic effusion [J18.9, J91.8] Cat Scan Comment on above: Parapneumonic effusion [J18.9, J91.8] Start: 04-14-2025 End: 04-14-2025 Patient encounter procedure 04/14/2025 10:00 AM EDT Office Visit Pulmonary Medicine [address] [place] [address] Coy Loomis AUTO PORTER.ATMOSPHERIC CHEMIST [address] [place] [address] Follow up, see TE Pulmonary Medicine Comment on above: Follow up, see TE Start: 04-05-2025 End: 04-05-2025 Patient encounter procedure 04/05/2025 3:00 PM EDT Office Visit Pulmonary Medicine [address] [place] [address] Coy Loomis APRN.ATMOSPHERIC CHEMIST [address] [place] [address] F/U to CXR on 03-28-2025 Pulmonary Medicine Comment on above: F/U to CXR on 03-28-2025 Start: 03-28-2025 End: 03-28-2025 Patient encounter procedure Radiology Comment on above: Parapneumonic effusion [J18.9, J91.8] F/U to CXR on 025 Start: 02-23-2025 End: 05-25-2025 CBC W Auto Differential panel - Blood COMPLETE BLOOD COUNT AND DIFFERENTIAL Lab STAT Iron deficiency anemia, unspecified iron deficiency anemia type Expected: 02/23/2025 (Approximate), Expires: 05/25/2025 [facility] Comment on above: Expected: 02/23/2025 (Approximate), Expi res: 05/25/2025 Start: 02-23-2025 End: 05-25-2025 Ferritin [Mass/volume] in Serum or Plasma FERRITIN Lab Routine Iron deficiency anemia, unspecified iron deficiency anemia type Expected: 02/23/2025 (Approximate), Expires: 05/25/2025 [facility] Work Phone: Comment on above: Expected: 02/23/2025 (Approximate), Expi res: 05/25/2025 Start: 02-23-2025 End: 05-25-2025 Iron and Iron binding capacity panel - Serum or Plasma IRON AND TIBC Lab Routine Iron deficiency anemia, unspecified iron deficiency anemia type Expected: 02/23/2025 (Approximate), Expires: 05/25/2025 [facility] Comment on above: Expected: 02/23/2025 (Approximate), Expi res: 05/25/2025 Start: 02-23-2025 End: 02-23-2025 ambulatory 02/23/2025 9:30 AM EDT Results [facility] [address] [place] [address] [facility] Start: 02-14-2025 Covid-19 Vaccine (3 - Pfizer risk series) Covid-19 Vaccine (3 - Pfizer risk series) [facility] Comment on above: Postponed from 07/06/2021 (Declined at t his time) Start: 02-14-2025 Hepatitis B Vaccine (1 of 3 - 19+ 3-dose series) Hepatitis B Vaccine (1 of 3 - 19+ 3-dose series) [facility] Comment on above: Postponed from 1987 (Declined at t his time) Start: 02-14-2025 Pneumococcal vaccination Pneumococcal Vaccine (1 of 2 - PCV) [facility] Comment on above: Postponed from 1974 (Declined at t his time) Start: 02-14-2025 End: 02-14-2025 Patient encounter procedure 02/14/2025 11:00 AM EDT Office Visit Pulmonary Medicine [address] [place] [address] Austen Carter MD [address] [place] [address] Dx: Pleural effusion on right [J90] Pulmonary Medicine Comment on above: Dx: Pleural effusion on right [J90] Start: 02-13-2025 Colonoscopy w/biopsy single/multiple COLONOSCOPY AND BIOPSY [facility] Start: 02-13-2025 Endoscopy upper small intestine w/biopsy SMALL BOWEL ENDOSCOPY/BIOPSY [facility] Start: 02-13-2025 Patient discharge [facility] Start: 02-10-2025 End: 02-10-2025 Admission to same day surgery center 02/10/2025 2:30 PM EDT - 02/10/2025 3:30 PM EDT Surgery [facility] [address] [place] [address] Sandrita Price PA-C [address] [place] [address] THORACENTESIS NEEDLE OR CATHETER ASPIRATION OF THE PLEURAL SPACE W IMAGING GUIDANCE [facility] Comment on above: THORACENTESIS NEEDLE OR CATHETER ASPIRAT ION OF THE PLEURAL SPACE W IMAGING GUIDANCE Start: 02-10-2025 Subsequent hospital visit by physician 02/10/2025 2:30 PM EDT Hospital Encounter [facility] [address] [place] [address] Sandrita Price PA-C [address] [place] [address] Pleural effusion on right [J90] [facility] Comment on above: Pleural effusion on right [J90] Start: 02-10-2025 End: 02-10-2025 Thoracentesis needle/cath pleura w/imaging THORACENTESIS NEEDLE OR CATHETER ASPIRATION OF THE PLEURAL SPACE W IMAGING GUIDANCE Pleural effusion on right 02/10/2025 2:30 PM EDT [facility] Start: 02-07-2025 End: 02-07-2025 Patient encounter procedure Cat Scan Comment on above: Iron deficiency anemia, unspecified iron deficiency anemia type [D50.9] Start: 02-06-2025 End: 05-08-2025 PT panel - Platelet poor plasma by Coagulation assay PROTHROMBIN TIME Lab Routine Pleural effusion Expected: 02/06/2025, Expires: 05/08/2025 [facility] Work Phone: Comment on above: Expected: 02/06/2025, Expires: Start: 02-04-2025 End: 02-04-2025 ambulatory 02/04/2025 10:00 AM EDT Results Only [facility] [address] [place] [address] [facility] Start: 02-03-2025 End: 05-05-2025 Bacteria identified in Body fluid by Culture BACTERIAL CULTURE AND GRAM STAIN, STERILE BODY FLUID Microbiology Routine Pleural effusion on right Expected: 02/03/2025, Expires: 05/05/2025 [facility] Comment on above: Expected: 02/03/2025, Expires: Start: 02-03-2025 End: 05-05-2025 BODY FLUID CELL COUNT BODY FLUID CELL COUNT Lab Routine Pleural effusion on right Expected: 02/03/2025, Expires: 05/05/2025 [facility] Work Phone: Comment on above: Expected: 02/03/2025, Expires: Start: 02-03-2025 End: 05-05-2025 CYTOLOGY NON-PARA PROFESSIONAL CYTOLOGY NON-PARA PROFESSIONAL Lab Routine Pleural effusion on right Expected: 02/03/2025, Expires: 05/05/2025 [facility] Comment on above: Expected: 02/03/2025, Expires: Start: 02-03-2025 End: 05-05-2025 Fungus identified in Unspecified specimen by Culture FUNGAL CULTURE (NON DERMAL) Microbiology Routine Pleural effusion on right Expected: 02/03/2025, Expires: 05/05/2025 [facility] Comment on above: Expected: 02/03/2025, Expires: Start: 02-03-2025 End: 05-05-2025 Glucose [Mass/volume] in Body fluid GLUCOSE, BODY FLUID Lab Routine Pleural effusion on right Expected: 02/03/2025, Expires: 05/05/2025 [facility] Comment on above: Expected: 02/03/2025, Expires: Start: 02-03-2025 End: 05-05-2025 Lactate dehydrogenase [Enzymatic activity/volume] in Body fluid LACTATE DEHYDROGENASE, BODY FLUID Lab Routine Pleural effusion on right Expected: 02/03/2025, Expires: 05/05/2025 [facility] Comment on above: Expected: 02/03/2025, Expires: Start: 02-03-2025 End: 05-05-2025 Lactate dehydrogenase [Enzymatic activity/volume] in Serum or Plasma LACTATE DEHYDROGENASE Lab Routine Pleural effusion on right Expected: 02/03/2025, Expires: 05/05/2025 [facility] Comment on above: Expected: 02/03/2025, Expires: Start: 02-03-2025 End: 05-05-2025 Microorganism identified in Unspecified specimen by Culture AFB CULTURE AND STAIN Microbiology Routine Pleural effusion on right Expected: 02/03/2025, Expires: 05/05/2025 [facility] Comment on above: Expected: 02/03/2025, Expires: Start: 02-03-2025 End: 05-05-2025 Protein [Mass/volume] in Serum or Plasma PROTEIN, TOTAL Lab Routine Pleural effusion on right Expected: 02/03/2025, Expires: 05/05/2025 [facility] Comment on above: Expected: 02/03/2025, Expires: Start: 02-01-2025 End: 02-01-2025 Patient encounter procedure 02/01/2025 4:00 PM EDT Appointment [facility] [address] [place] [address] Elevated C-reactive protein (CRP) [R79.82] [facility] Comment on above: Elevated C-reactive protein (CRP) [R79.8 2] Start: 01-31-2025 End: 03-02-2026 CTA Pulmonary arteries for pulmonary embolus W contrast IV CTA CHEST (NONGATED) W IVCON PE Radiology STAT Elevated C-reactive protein (CRP) Expected: 01/31/2025, Expires: 03/02/2026 [facility] Work Phone: Comment on above: Expected: 01/31/2025, Expires: Start: 01-31-2025 End: 01-31-2025 Patient encounter procedure [facility] Medicine [place] Comment on above: 1 week BP check Tachycardia [R00.0] Start: 01-27-2025 End: 04-28-2025 Ascorbate [Mass/volume] in Serum or Plasma [facility] Comment on above: Expected: 01/27/2025 (Approximate), Expi res: 04/28/2025 Start: 01-27-2025 End: 04-28-2025 COPPER BLOOD [facility] Comment on above: Expected: 01/27/2025 (Approximate), Expi res: 04/28/2025 Start: 01-27-2025 End: 04-28-2025 Ferritin [Mass/volume] in Serum or Plasma [facility] Comment on above: Expected: 01/27/2025 (Approximate), Expi res: 04/28/2025 Start: 01-27-2025 End: 04-28-2025 Iron and Iron binding capacity panel - Serum or Plasma [facility] Work Phone: Comment on above: Expected: 01/27/2025 (Approximate), Expi res: 04/28/2025 Start: 01-27-2025 End: 04-28-2025 Zinc [Mass/volume] in Serum or Plasma [facility] Comment on above: Expected: 01/27/2025 (Approximate), Expi res: 04/28/2025 Start: 01-26-2025 End: 01-26-2025 ambulatory 01/26/2025 1:00 PM EDT Visit (SP) Office Hematology/Oncology [address] [place], [place] [id number] Fran Gomez [address] [address] PIN CHASER/ANEMIA/REF BY BECKY IRELAND/PER TE 01/24* Hematology/Oncology Comment on above: PIN CHASER/ANEMIA/REF BY BECKY IRELAND/PER TE * Start: 01-23-2025 End: 01-23-2025 Patient encounter procedure 01/23/2025 6:20 PM EDT Office Visit Family Medicine [place] [address] [place] [address] Becky Ireland APRN.ATMOSPHERIC CHEMIST [address] [place] [address] 2 week BP check [facility] [place] Comment on above: 2 week BP check Start: 01-16-2025 End: 04-17-2025 CBC W Auto Differential panel - Blood COMPLETE BLOOD COUNT AND DIFFERENTIAL Lab Routine Anemia, unspecified type Expected: 01/16/2025, Expires: 04/17/2025 [facility] Work Phone: Comment on above: Expected: 01/16/2025, Expires: Start: 01-15-2025 Screening for malignant neoplasm of colon Colorectal Cancer Screening [facility] Start: 01-13-2025 [facility] Start: 01-11-2025 End: 01-11-2026 CBC W Auto Differential panel - Blood COMPLETE BLOOD COUNT AND DIFFERENTIAL Lab Routine Anemia, unspecified type Expected: 01/11/2025, Expires: 01/11/2026 [facility] Comment on above: Expected: 01/11/2025, Expires: Start: 01-11-2025 End: 01-11-2026 Cobalamin (Vitamin B12) [Mass/volume] in Serum or Plasma VITAMIN B12 Lab Routine Anemia, unspecified type Expected: 01/11/2025, Expires: 01/11/2026 [facility] Comment on above: Expected: 01/11/2025, Expires: Start: 01-11-2025 End: 01-11-2026 Ferritin [Mass/volume] in Serum or Plasma FERRITIN Lab Routine Anemia, unspecified type Expected: 01/11/2025, Expires: 01/11/2026 [facility] [employer] Work Phone: Comment on above: Expected: 01/11/2025, Expires: Start: 01-11-2025 End: 01-11-2026 Folate [Mass/volume] in Serum or Plasma FOLATE, SERUM Lab Routine Anemia, unspecified type Expected: 01/11/2025, Expires: 01/11/2026 [facility] Comment on above: Expected: 01/11/2025, Expires: Start: 01-11-2025 End: 01-11-2026 Hemoglobin.gastrointestin al.lower [Presence] in Stool by Immunoassay IMMUNOCHEMICAL FECAL OCCULT BLOOD TEST Lab Routine Anemia, unspecified type Expected: 01/11/2025, Expires: 01/11/2026 [facility] Comment on above: Expected: 01/11/2025, Expires: Start: 01-11-2025 End: 01-11-2026 Iron and Iron binding capacity panel - Serum or Plasma IRON AND TIBC Lab Routine Anemia, unspecified type Expected: 01/11/2025, Expires: 01/11/2026 [facility] Comment on above: Expected: 01/11/2025, Expires: Start: 01-11-2025 End: 01-11-2026 RETICULOCYTE COUNT RETICULOCYTE COUNT Lab Routine Anemia, unspecified type Expected: 01/11/2025, Expires: 01/11/2026 [facility] Comment on above: Expected: 01/11/2025, Expires: Start: 01-10-2025 End: 04-11-2025 Comprehensive metabolic 2000 panel - Serum or Plasma [facility] Work Phone: Comment on above: Expected: 01/10/2025, Expires: Start: 01-10-2025 End: 04-11-2025 Magnesium [Mass/volume] in Serum or Plasma [facility] Comment on above: Expected: 01/10/2025, Expires: Start: 01-10-2025 End: 04-11-2025 Thyrotropin [Units/volume] in Serum or Plasma [facility] Comment on above: Expected: 01/10/2025, Expires: Start: 01-10-2025 End: 04-11-2025 Thyroxine (T4) free [Mass/volume] in Serum or Plasma [facility] Comment on above: Expected: 01/10/2025, Expires: Start: 12-27-2024 [facility] Start: 12-27-2024 Bacteria identified in Blood by Culture Blood Culture [facility] Start: 12-27-2024 Bacteria identified in Urine by Culture Urine Culture [facility] Start: 12-27-2024 End: 12-27-2024 [facility] Start: 12-27-2024 End: 12-27-2024 Patient encounter procedure 12/27/2024 9:00 AM EDT Office Visit Family [facility] [address] [place] [address] Becky Ireland, AUTO PORTER.ATMOSPHERIC CHEMIST [address] [place] [address] Hopsital F/U: [facility]- septic arthritis, dicharged 12/21/24 [facility] [place] Comment on above: Hopsital F/U: H- septic arthritis, dic harged 12/21/24 Start: 12-21-2024 Referral to service [facility] Start: 12-21-2024 Patient discharge [facility] Start: 12-21-2024 Referral to service [facility] Start: 12-19-2024 End: 12-20-2024 [facility] Start: 12-19-2024 Application of ice collar, cap or bag [facility] Start: 12-19-2024 Catheterization of vein [facility] Start: 12-19-2024 Deep breathing and coughing exercises [facility] Start: 12-19-2024 Following clinical pathway protocol [facility] Start: 12-19-2024 Introduction of urinary catheter [facility] Start: 12-19-2024 Patient education [facility] Start: 12-19-2024 Taking patient vital signs [facility] Start: 12-19-2024 Vital signs measurements [facility] Start: 12-19-2024 Referral to occupational therapist [facility] Start: 12-19-2024 Consultation [facility] Start: 12-19-2024 Medication education [facility] Start: 12-17-2024 Fungal Culture Fungal Culture [facility] Start: 12-17-2024 Fungal Smear Fungal Smear [facility] Start: 12-17-2024 Mycology culture [facility] Start: 12-17-2024 Deep breathing and coughing exercises [facility] Start: 12-17-2024 Following clinical pathway protocol [facility] Start: 12-17-2024 Introduction of urinary catheter [facility] Start: 12-17-2024 Patient education [facility] Start: 12-17-2024 Taking patient vital signs [facility] Start: 12-17-2024 Vital signs measurements [facility] Start: 12-17-2024 [facility] Start: 12-17-2024 Medication education [facility] Start: 12-16-2024 Application of ice collar, cap or bag [facility] Start: 12-16-2024 Catheterization of vein [facility] Start: 12-16-2024 Following clinical pathway protocol [facility] Start: 12-16-2024 Procedure discontinued [facility] Start: 12-16-2024 Taking patient vital signs [facility] Start: 12-16-2024 Vital signs measurements [facility] Start: 12-16-2024 [facility] Start: 12-16-2024 [facility] Start: 12-16-2024 Medication education [facility] Start: 12-15-2024 Following clinical pathway protocol [facility] Start: 12-15-2024 Assessment of risk of venous thromboembolism [facility] Start: 12-15-2024 Documentation procedure [facility] Start: 12-15-2024 Insertion of catheter into peripheral vein [facility] Start: 12-15-2024 Measuring intake and output [facility] Start: 12-15-2024 Providing care according to standard [facility] Start: 12-15-2024 Provision of activity privileges [facility] Start: 12-15-2024 Referral to service [facility] Start: 12-15-2024 [facility] Start: 12-15-2024 Contact precautions [facility] Start: 12-15-2024 Respiratory secretion precautions [facility] Start: 12-15-2024 Admission procedure [facility] Start: 11-28-2024 End: 11-28-2024 Follow-up encounter 11/28/2024 9:00 AM EST Visit (SP) Office Hematology/Oncology [address] [place] [address] Adelina Luis APRN.ATMOSPHERIC CHEMIST [address] [place] [address] 6 mo follow up Hematology/Oncology Comment on above: 6 mo follow up Start: 10-17-2024 Colonoscopy COLONOSCOPY [facility] Start: 10-17-2024 COLORECTAL CANCER SCREENING COLORECTAL CANCER SCREENING [facility] Start: 10-17-2024 Screening for malignant neoplasm of colon [facility] Start: 08-12-2024 End: 11-11-2024 Hepatic function 1999 panel - Serum or Plasma HEPATIC FUNCTION PNL Lab Routine Onychodystrophy Expected: 08/12/2024, Expires: 11/11/2024 [facility] Comment on above: Expected: 08/12/2024, Expires: Start: 06-19-2024 Influenza vaccination Influenza Vaccine (#1) [facility] Start: 06-12-2024 End: 09-11-2024 Hepatic function 2000 panel - Serum or Plasma HEPATIC FUNCTION PNL Lab Routine Onychodystrophy Expected: 06/12/2024, Expires: 09/11/2024 [facility] Work Phone: Comment on above: Expected: 06/12/2024, Expires: Start: 05-23-2024 End: 05-23-2024 ambulatory 05/23/2024 9:00 AM EDT Visit (SP) Office Hematology/Oncology [address] [place], [place] [id number] Adelina Luis APRN.ATMOSPHERIC CHEMIST [address] [place] [address] 6 MO OV* Hematology/Oncology Comment on above: 6 MO OV* Start: 04-29-2024 End: 04-29-2024 Patient encounter procedure 04/29/2024 10:00 AM EDT Office Visit Podiatry [address] [place], [place] [id number] Anupam Velasco [address] [place] [address] Dx: Toenail deformity [L60.8] Podiatry Comment on above: Dx: Toenail deformity [L60.8] Start: 02-15-2024 End: 02-14-2025 CBC W Auto Differential panel - Blood COMPLETE BLOOD COUNT AND DIFFERENTIAL Lab Routine Wellness examination Expected: 02/15/2024, Expires: 02/14/2025 [facility] Work Phone: Comment on above: Expected: 02/15/2024, Expires: Start: 02-15-2024 End: 02-14-2025 Comprehensive metabolic 2000 panel - Serum or Plasma COMPREHENSIVE METABOLIC PANEL Lab Routine Wellness examination Expected: 02/15/2024, Expires: 02/14/2025 [facility] Comment on above: Expected: 02/15/2024, Expires: Start: 02-15-2024 End: 02-14-2025 Lipid 1996 panel - Serum or Plasma LIPID PANEL BASIC Lab Routine Wellness examination Expected: 02/15/2024, Expires: 02/14/2025 [facility] Comment on above: Expected: 02/15/2024, Expires: Start: 10-19-2023 Behavioral Health Screening Behavioral Health Screening [facility] Start: 10-19-2023 Depression Assessment Depression Assessment [facility] Start: 09-11-2023 Diabetes Screening Diabetes Screening [facility] Start: 06-19-2023 Influenza vaccination [facility] Start: 05-09-2023 Adult depression screening assessment DEPRESSION SCREENING [facility] Start: 01-19-2023 Liquid based cervical cytology screening [facility] Start: 10-19-2022 DEPRESSION ASSESSMENT DEPRESSION ASSESSMENT [facility] Start: 09-29-2022 DIABETES SCREEN DIABETES SCREEN [facility] Start: 09-29-2022 Diabetes Screening Diabetes Screening [facility] Start: 06-19-2022 Influenza vaccination INFLUENZA (#1) [facility] Start: 12-31-2021 Screening for malignant neoplasm of cervix Cervical Cancer Screening [facility] Start: 12-31-2021 End: 12-31-2021 Patient encounter procedure 12/31/2021 Office Visit Surgical Oncology Jignesh Vivas MD [address] [place] [address] Division of Surgical Oncology Start: 10-19-2021 DEPRESSION ASSESSMENT DEPRESSION ASSESSMENT [facility] Start: 07-06-2021 COVID-19 VACCINE (3 - Pfizer risk series) COVID-19 VACCINE (3 - Pfizer risk series) [facility] Start: 06-19-2021 Influenza vaccination INFLUENZA VACCINE (#1) [facility] Start: 06-08-2021 COVID-19 VACCINE (2 - Pfizer 2-dose series) COVID-19 VACCINE (2 - Pfizer 2-dose series) [facility] Start: 05-28-2021 End: 05-28-2021 Patient encounter procedure 05/28/2021 Office Visit Plastic Surgery Annika Shannon PA-C [address] [place] [address] Department of Plastic Surgery Start: 10-17-2020 Colonoscopy COLORECTAL CANCER SCREENING DISCUSSION [facility] Start: 10-04-2020 End: 10-04-2020 Scheduled Telephone Encounter 10/04/2020 Scheduled Telephone Encounter Rheumatology Javier Tolbert MD [address] [place] [address] [phone] [facility] Start: 09-05-2020 Shingles Vaccine (2 of 2) Shingles Vaccine (2 of 2) [place] Start: 09-05-2020 SHINGRIX VACCINE (2 of 2) SHINGRIX VACCINE (2 of 2) [facility] Start: 2018 Screening for malignant neoplasm of colon Colon cancer screen colonoscopy [place] Start: 2018 Zoster vaccine hzv live for subcutaneous use ZOSTER (SHINGLES) VACCINE (1 of 2) [facility] Start: 2013 COLOGUARD (FIT-DNA) COLOGUARD (FIT-DNA) [facility] Start: [address] COLONOGRAPHY [facility] Start: 2013 FECAL OCCULT BLOOD FECAL OCCULT BLOOD [facility] Start: 2013 Screening for malignant neoplasm of colon [facility] Start: 2013 SIGMOIDOSCOPY SIGMOIDOSCOPY [facility] Start: 2008 Fasting lipid profile LIPID SCREENING [facility] Start: 2008 Lipid panel Lipid screen [place] Start: 2008 Screening for malignant neoplasm of breast Breast cancer screen [place] Start: 1989 Screening for malignant neoplasm of cervix [facility] Start: 1987 Hepatitis B Vaccine (1 of 3 - 19+ 3-dose series) Hepatitis B Vaccine (1 of 3 - 19+ 3-dose series) [facility] Start: 1987 Pneumococcal Vaccine: 50+ (1 of 2 - PCV) Pneumococcal Vaccine: 50+ (1 of 2 - PCV) [facility] Start: 1987 Third diphtheria, tetanus and acellular pertussis (DTaP) vaccination TDAP (ADULT) [facility] Start: 1986 Anxiety Screening Anxiety Screening [facility] Start: 1986 BP Controlled (<130/80) BP Controlled (<130/80) [facility] Start: 1986 Depression Screening Depression Screening [facility] Start: 1986 Tetanus vaccination TETANUS [facility] Start: 1983 HIV screening [facility] Start: 1974 PNEUMOCOCCAL (1 - PCV) PNEUMOCOCCAL (1 - PCV) [facility] Start: 1974 Pneumococcal 0-64 years Vaccine (1 of 3 - PCV13) Pneumococcal 0-64 years Vaccine (1 of 3 - PCV13) [place] Start: 1974 [facility]neumococcal vaccination [facility] Start: 1968 HEPATITIS B (1 of 3 - 3-dose series) HEPATITIS B (1 of 3 - 3-dose series) [facility] Start: 1968 Hepatitis B Vaccine (1 of 3 - 3-dose series) Hepatitis B Vaccine (1 of 3 - 3-dose series) [facility] Start: 1968 Hepatitis C antibody, confirmatory test HEPATITIS C VIRUS SCREENING [facility] ALERE STREP A TEST (AG) ALERE ST REP A TEST (AG) Lab Routine Sore throat Ordered: 11/23/2024 [facility] Work Phone: Comment on above: Ordered: 11/23/2024 CBC W Auto Different ial panel - Blood COMPLETE BLOOD COUNT AND DIFFERENTIAL Lab Routine Tachycardia 01/10/2025 4:25 PM EDT [facility] Colonoscopy [facility] COVID & INFLUENZA A/ B & RSV NAAT, ROUTINE COVID & INFLUENZA A/B & RSV NAAT, ROUTINE Microbiology Routine Acute cough Ordered: 08/15/2023 [facility] Work Phone: Comment on above: Ordered: 08/15/2023 End: 09-19-2020 COVID-19 COVID-19 Lab Routine Once for 1 Occurrences starting 09/19/2020 until 09/19/2020 [email or web address] Comment on above: Once for 1 Occurrences starting 09/19/20 20 until 09/19/2020 End: 02-25-2026 CT Abdomen and Pelvis W contrast IV CT ABD/PEL W IVCON Radiology Routine Iron deficiency anemia, unspecified iron deficiency anemia type Malignant neoplasm of central portion of right breast in female, estrogen receptor positive (HCC) Pleural effusion 1 Occurrences starting 01/26/2025 until 02/25/2026 [facility] Comment on above: 1 Occurrences starting 01/26/2025 until 02/25/2026 CT Abdomen and Pelvi s W contrast IV CT ABD/PEL W IVCON Radiology Routine Iron deficiency anemia, unspecified iron deficiency anemia type Malignant neoplasm of central portion of right breast in female, estrogen receptor positive (HCC) Pleural effusion 02/07/2025 12:03 PM EDT [facility] Work Phone: End: 02-25-2026 CT Chest W contrast IV CT CHEST W IVCON Radiology Routine Iron deficiency anemia, unspecified iron deficiency anemia type Malignant neoplasm of central portion of right breast in female, estrogen receptor positive (HCC) Pleural effusion 1 Occurrences starting 01/26/2025 until 02/25/2026 [facility] Comment on above: 1 Occurrences starting 01/26/2025 until 02/25/2026 CT Chest W contrast IV CT CHEST W IVCON Radiology Routine Iron deficiency anemia, unspecified iron deficiency anemia type Malignant neoplasm of central portion of right breast in female, estrogen receptor positive (HCC) Pleural effusion 02/07/2025 12:03 PM EDT [facility] End: 05-18-2026 CT Chest WO contrast CT CHEST WO IVCON Radiology Routine Parapneumonic effusion 1 Occurrences starting 04/18/2025 until 05/18/2026 [facility] Work Phone: Comment on above: 1 Occurrences starting 04/18/2025 until 05/18/2026 CT Chest WO contrast CT CHEST WO IVCON Radiology Routine Parapneumonic effusion 05/03/2025 3:54 PM EDT [facility] Work Phone: End: 01-23-2026 Echocardiography ECHO Cardiology Routine Tachycardia 1 Occurrences starting 01/23/2025 until 01/23/2026 [facility] Work Phone: Comment on above: 1 Occurrences starting 01/23/2025 until 01/23/2026 Fungus identified in Unspecified specimen by Culture [facility] Fungus identified in Unspecified specimen by Fungus stain [facility] Guidance for thoracentesis of Chest IMAGING GUIDED THORACENTESIS Radiology Routine Pleural effusion on right Ordered: 02/03/2025 [facility] Work Phone: Comment on above: Ordered: 02/03/2025 Liquid based cervica l cytology screening [facility] Mastectomy simple complete MASTECTOMY COMPLETE Malignant neoplasm of right breast in female, estrogen receptor positive, unspecified site of breast [facility] OR Microorganism identi fied in Unspecified specimen by Culture FUNGAL CULTURE AND SMEAR - DERMAL (HAIR, SKIN AND NAIL) Microbiology Routine 04/12/2024 8:49 AM EDT [facility] Work Phone: Path report.final Dx Spec [facility] Patient Education [facility] Work Phone: Patient referral [facility] Work Phone: Protein [Mass/volume ] in Body fluid PROTEIN, BODY FLUID Lab Routine Pleural effusion on right Ordered: 02/03/2025 [facility] Comment on above: Ordered: 02/03/2025 PT panel - Platelet poor plasma by Coagulation assay PROTHROMBIN TIME Lab Routine Pleural effusion 02/08/2025 10:01 AM EDT [facility] ROUTINE FLU A/B + RSV ROUTINE FL U A/B + RSV Lab Routine Acute cough Ordered: 08/15/2023 [facility] Work Phone: Comment on above: Ordered: 08/15/2023 SARS-CoV-2 (COVID-19 ) RNA [Presence] in Respiratory specimen by NANCY with probe detection COVID NAAT, UPPER RESPIRATORY, ROUTINE Microbiology Routine Acute cough Ordered: 08/15/2023 [facility] Work Phone: Comment on above: Ordered: 08/15/2023 Urine culture [facility] US Thyroid gland US THYROID/PARA THYROID Radiology Routine Sore throat Lymphadenopathy Oropharyngeal dysphagia History of breast cancer Throat fullness Chills (without fever) 12/15/2024 3:28 PM EST [facility] Work Phone: End: 03-16-2026 XR Chest PA and Lateral XR CHEST 2V FRONTAL/LAT Radiology Routine Parapneumonic effusion 1 Occurrences starting 02/14/2025 until 03/16/2026 [facility] Work Phone: Comment on above: 1 Occurrences starting 02/14/2025 until 03/16/2026 [facility] Immunizations Immunization Date Immunization Notes Care Provider Vincenzo medina 10-31-2024 influenza, seasonal, injectable Lit Benedict AUTO PORTER.ATMOSPHERIC CHEMIST Work Phone: [facility] 10-31-2024 influenza virus vaccine, unspecified formulation Coy Click AUTO PORTER.ATMOSPHERIC CHEMIST Work Phone: [facility] 09-02-2023 influenza, injectabl e, quadrivalent, preservative free Lit Benedict AUTO PORTER.ATMOSPHERIC CHEMIST Work Phone: [facility] 09-02-2023 influenza virus vaccine, unspecified formulation Becky Shu AUTO PORTER.ATMOSPHERIC CHEMIST Work Phone: [facility] 10-01-2022 influenza, seasonal, injectable Adelina Luis AUTO PORTER.ATMOSPHERIC CHEMIST Work Phone: [facility] 10-01-2022 influenza virus vaccine, unspecified formulation Radha [place] AUTO PORTER.ATMOSPHERIC CHEMIST Work Phone: [facility] 11-25-2021 influenza, injectabl e, quadrivalent, contains preservative [place] Luis AUTO PORTER.ATMOSPHERIC CHEMIST Work Phone: [facility] 06-08-2021 COVID-19 vaccine, ag e 12+ yr (PFIZER-BIONTECH - PURPLE TOP) [place] Luis AUTO PORTER.ATMOSPHERIC CHEMIST Work Phone: [facility] 07-11-2020 influenza, seasonal, injectable [place] Luis AUTO PORTER.ATMOSPHERIC CHEMIST Work Phone: [facility] 07-11-2020 tetanus toxoid, redu raquel diphtheria toxoid, and acellular pertussis vaccine, adsorbed Adelina Luis AUTO PORTER.ATMOSPHERIC CHEMIST Work Phone: [facility] 07-11-2020 zoster vaccine recombinant Adelina Luis AUTO PORTER.ATMOSPHERIC CHEMIST Work Phone: [facility] 09-19-2019 influenza, injectabl e, quadrivalent, preservative free [place] 08-23-2018 influenza, injectabl e, quadrivalent, contains preservative [place] Payers Date Payer Category Payer Self-pay [id number] 2018 Private Health Insurance 2018 Private Health Insurance [id number] 2018 Private Health Insurance [id number] 2008 Unknown [id number] 1968 Unknown [id number] 2.16.8 40.1.049055.3.579.2.668 1968 Unknown [id number] 2.16.8 40.1.672679.3.579.2.668 1968 Unknown [id number] 2.16.8 40.1.118484.3.579.2.668 1968 Unknown [id number] .16.8 40.1.280015.3.579.2.668 1968 Unknown [id number] .16.8 40.1.629145.3.579.2.668 1968 Unknown [id number] 2.16. 840.1.386252.3.579.2.594 1968 Unknown [id number] 2.16. 840.1.891274.3.579.2.594 1968 Unknown [id number] 2.16. 840.1.158827.3.579.2.594 1968 Unknown [id number] 2.16. 840.1.953657.3.579.2.594 1968 Unknown [id number] 2.16. 840.1.780336.3.579.2.594 1968 Unknown [id number] 2.16. 840.1.863778.3.579.2.594 1968 Unknown [id number] 2.16. 840.1.746696.3.579.2.594 1968 Unknown [id number] 2.16. 840.1.183658.3.579.2.594 1968 Unknown [id number] 2.16. 840.1.196981.3.579.2.594 1968 Unknown [id number] 2.16. 840.1.950804.3.579.2.594 Unknown [id number] 2.16.8 40.1.141249.3.579.2.462 Unknown [id number] 2.16.8 40.1.138575.3.579.2.462 Unknown [id number] 2.16.8 40.1.687058.3.579.2.462 Unknown [id number] 2.16.8 40.1.610575.3.579.2.462 Unknown [id number] 2.16.8 40.1.118940.3.579.2.462 Unknown [id number] 2.16.8 40.1.652764.3.579.2.462 Unknown [id number] 2.16.8 40.1.009854.3.579.2.462 Unknown [id number] 2.16.8 40.1.691221.3.579.2.462 Unknown [id number] 2.16.8 40.1.528291.3.579.2.462 Unknown [id number] 2.16.8 40.1.548929.3.579.2.462 Unknown [id number] 2.16.8 40.1.210075.3.579.2.462 Unknown [id number] 2.16.8 40.1.826348.3.579.2.462 Unknown [id number] 2.16.8 40.1.547219.3.579.2.462 Unknown [id number] 2.16.8 40.1.152502.3.579.2.462 Unknown [id number] 2.16.8 40.1.620539.3.579.2.462 Social History Date Type Detail Facility Start: 03-14-2020 End: 05-08-2025 Tobacco smoking status NHIS Never smoker [place] Start: 10-27-2012 End: 03-14-2020 Tobacco use and exposure Never used [place] Start: 03-14-2020 Alcohol intake Lifetime non-drinker (finding) [place] Start: 01-05-2019 End: 05-20-2021 History SDOH Alcohol Frequency 1 [place] Start: 01-21-2018 Alcohol Comment rare [place], [place] Start: 1970 Sex Assigned At Not on file [place] Start: 01-07-2022 End: 01-25-2024 Tobacco smoking status ILIS Unknown if ever smoked [facility] Start: 02-21-2020 Non-smoker [facility] Start: 1970 Sex Assigned At Female [facility] Start: 05-21-2021 Alcohol intake Current drinke r of alcohol (finding) [facility] Start: 11-13-2020 End: 05-20-2021 History SDOH Alcohol Frequency 3 [facility] Start: 11-13-2020 End: 05-20-2021 History SDOH Financial 5 [facility] Start: 11-13-2020 End: 05-20-2021 History SDOH Transport Med 2 [facility] Exposure to SARS-CoV -2 (event) Not sure [facility] Start: 05-12-2022 End: 04-27-2025 Alcohol intake Current non-drinker of alcohol (finding) [facility] Start: 05-20-2021 History SDOH Physica l Activity DPW 6 [facility] Start: 05-20-2021 History SDOH Physica l Activity MPS 7 [facility] Start: 05-19-2021 Education 12 [facility] Start: 05-19-2021 End: 11-05-2023 History of Social function [facility] Start: 05-19-2021 End: 11-05-2023 Social connection and isolation panel [facility] Do you belong to any clubs or organizations such as christianity groups, unions, fraternal or athletic groups, or school groups? No [facility] Are you now , , , , never or living with a partner? [facility] How often to you hav e a drink containing alcohol? Never [facility] How many standard dr inks containing alcohol do you have on a typical day? 1 or 2 [facility] How hard is it for y ou to pay for the very basics like food, housing, medical care, and heating Not hard at all [facility] Do you feel stress - tense, restless, nervous, or anxious, or unable to sleep at night because your mind is troubled all the time - these days [OSQ] Only a little [facility] (I/We) worried lukasz er (my/our) food would run out before (I/we) got money to buy more. Never true [facility] Do you belong to any clubs or organizations such as christianity groups, [employer], [employer] or athletic groups, or school groups? Yes [facility] How hard is it for y ou to pay for the very basics like food, housing, medical care, and heating Not very hard [facility] Start: 12-27-2024 End: 02-13-2025 Sex Female (finding) [facility] NEGATED: Highlighted row Not [facility] Medical Equipment Procedure Code Equipment Code Equipment Origin al Text Equipment Identifier Dates Insertion, vascular access port PORT,6FR POWER PORT FDA Start: 02-02-2019 Insertion, vascular access port PORT,6FR POWER PORT FDA Start: 02-02-2019 Insertion, vascular access port PORT,6FR POWER PORT FDA Start: 02-02-2019 Insertion, vascular access port PORT,6FR POWER PORT FDA Start: 02-02-2019 Insertion, vascular access port PORT,6FR POWER PORT FDA Start: 02-02-2019 Insertion, vascular access port PORT,6FR POWER PORT FDA Start: 02-02-2019 Insertion, vascular access port PORT,6FR POWER PORT FDA Start: 02-02-2019 SUTURE,LIGA CLIP MED [id number] FDA Start: 12-28-2018 SUTURE,LIGA CLIP MED [id number] FDA Start: 12-28-2018 SUTURE,LIGA CLIP SM LT-100 FDA Start: 12-28-2018 SUTURE,LIGA CLIP SM LT-100 FDA Start: 12-28-2018 SUTURE,LIGA CLIP SM LT-100 FDA Start: 12-28-2018 Unit Leader Anastomo tic 2.0mm Gem2 - [id number] Start: 09-24-2020 Unit Leader Anastomo tic 3.0mm Gem2 - [id number] Start: 09-24-2020 Unit Leader Anastomo tic 3.0mm Gem2 - [id number] Start: 09-24-2020 Unit Leader Anastomo tic 2.5mm Gem2 - [id number] Start: 09-24-2020 Graft Nerve Avan ce 1 2x70mm - [id number] Start: 09-24-2020 Connector Nerve Axo [id number] - [id number] Start: 09-24-2020 Connector Nerve Axo [id number] - [id number] Start: 09-24-2020 Graft Nerve Avan ce 1 2x70mm - [id number] Start: 09-24-2020 Connector Nerve Axo [id number] - [id number] Start: 09-24-2020 Connector Nerve Axo [id number] - [id number] Start: 09-24-2020 SUTURE,LIGA CLIP MED [id number] FDA Start: 12-28-2018 SUTURE,LIGA CLIP MED [id number] FDA Start: 12-28-2018 SUTURE,LIGA CLIP SM LT-100 FDA Start: 12-28-2018 SUTURE,LIGA CLIP SM LT-100 FDA Start: 12-28-2018 SUTURE,LIGA CLIP SM LT-100 FDA Start: 12-28-2018 SUTURE,LIGA CLIP MED [id number] FDA Start: 12-28-2018 SUTURE,LIGA CLIP MED [id number] FDA Start: 12-28-2018 SUTURE,LIGA CLIP SM LT-100 FDA Start: 12-28-2018 SUTURE,LIGA CLIP SM LT-100 FDA Start: 12-28-2018 SUTURE,LIGA CLIP SM LT-100 FDA Start: 12-28-2018 SUTURE,LIGA CLIP MED [id number] FDA Start: 12-28-2018 SUTURE,LIGA CLIP MED [id number] FDA Start: 12-28-2018 SUTURE,LIGA CLIP SM LT-100 FDA Start: 12-28-2018 SUTURE,LIGA CLIP SM LT-100 FDA Start: 12-28-2018 SUTURE,LIGA CLIP SM LT-100 FDA Start: 12-28-2018 SUTURE,LIGA CLIP MED LT200 FDA Start: 12-28-2018 SUTURE,LIGA CLIP MED LT200 FDA Start: 12-28-2018 SUTURE,LIGA CLIP SM LT-100 FDA Start: 12-28-2018 SUTURE,LIGA CLIP SM LT-100 FDA Start: 12-28-2018 SUTURE,LIGA CLIP SM LT-100 FDA Start: 12-28-2018 SUTURE,LIGA CLIP MED LT200 FDA Start: 12-28-2018 SUTURE,LIGA CLIP MED LT200 FDA Start: 12-28-2018 SUTURE,LIGA CLIP SM LT-100 FDA Start: 12-28-2018 SUTURE,LIGA CLIP SM LT-100 FDA Start: 12-28-2018 SUTURE,LIGA CLIP SM LT-100 FDA Start: 12-28-2018 SUTURE,LIGA CLIP MED LT200 FDA Start: 12-28-2018 SUTURE,LIGA CLIP MED LT200 FDA Start: 12-28-2018 SUTURE,LIGA CLIP SM LT-100 FDA Start: 12-28-2018 SUTURE,LIGA CLIP SM LT-100 FDA Start: 12-28-2018 SUTURE,LIGA CLIP SM LT-100 FDA Start: 12-28-2018 Goals Date Patient Goal Desired Activity /State Comment on above: Formatting of this n ote might be different from the original. Becky will be compliant with incision/wound care as ordered by physician. Becky will remain free of signs and symptoms of infection and knowledgeable of what/when/how to report concerns. Becky and caregiver will be knowledgeable of who provides their dressing supplies and how to obtain them. [facility] provided Becky and caregiver with wound care instruction on AVS education related to the above. Functional Status Date Assessment Result Facility 12-21-2024 Functional status Chair [facility] Work Phone: 02-20-2015 Are you deaf, or do you have serious difficulty hearing No 02/20/2015 10:57 AM Erica Gómez Ma [facility] Work Phone: 02-20-2015 Are you blind, or do you have serious difficulty seeing, even when wearing glasses No 02/20/2015 10:57 AM Erica Gómez Ma [facility] 02-20-2015 Do you have serious difficulty walking or climbing stairs No 02/20/2015 10:57 AM Erica Gómez Ma [facility] 02-20-2015 Do you have difficul ty dressing or bathing No 02/20/2015 10:57 AM Erica Gómez Ma [facility] 02-20-2015 Because of a physica l, mental, or emotional condition, do you have difficulty doing errands alone such as visiting a physician's office or shopping No 02/20/2015 10:57 AM Erica Gómez Ma [facility] Mental Status Date Assessment Result Facility 02-13-2025 Cognitive function Voice/Name [facility] Work Phone: 01-13-2025 Cognitive function Voice/Name [facility] Work Phone: 12-27-2024 Cognitive function Level Of Cons ciousness Awake;Alert;Appropriate;Fol lows Commands [facility] Work Phone: 12-20-2024 Cognitive function Voice/Name [facility] Work Phone: 02-20-2015 Because of a physica l, mental, or emotional condition, do you have serious difficulty concentrating, remembering, or making decisions No 02/20/2015 10:57 AM Erica Gómez Ma [facility] Clinical Notes 05-21-2021 to 05-08-2025 Note Date & Type Note Facility 05-08-2025 Progress note [facility] 05-08-2025 Progress note Note Date/Time May 08, 2025 3:09pm [address], [address] [place] [address] OFFICE VISIT Date of Service: 05/08/25 MR#: [id number] Acct: [id number] Name: BECKY HUFFMAN Rep #: [id number] : 1970 Provider: Dr. Sunil Bains MD Age/Sex: 55/F Location[place] [facility] Status: Signed Intake Vital Signs 12/27/24 10:03 02/13/25 11:10 05/08/25 14:37 Height 5 ft 6 in 5 ft 5 in 5 ft 5 in Weight: 133 lb BMI 22.1 BP 125/79 H Intake Visit Reasons: Annual ([employer]) Clinical Documentation Clerk Required: No Is patient in pain?: Yes (headache) Allergies No Known Allergies Allergy (Verified 05/08/25 14:39) Medications ?Medication ?Instructions ?Recorded ?Confirmed ?Type multivitamin 1 tab PO DAILY general healt h 11/29/18 05/08/25 History anastrozole 1 mg tablet 1 mg PO DAILY arthritis 09/1905/08/25 History ferrous sulfate 325 mg (65 mg 325 mg PO MOWEFR anemia 10/13/19 05/08/25 History iron) tablet calcium 500 mg (as 1 ea PO BID def. 02/21/20 History carbonate)-vitamin D3 15 mcg (600 unit) tablet certolizumab pegol 400 mg/2 mL 200 mg subcut Q2W arthr itis 12/31/20 05/08/25 History (200 mg/mL x2) subcutaneous syringe kit (Cimzia) hydroxychloroquine 200 mg tablet 200 mg PO QHS arthrit is 07/09/21 05/08/25 History leflunomide 20 mg tablet 20 mg PO DAILY arthritis 05/08/25 History acetaminophen 500 mg tablet 1,000 mg PO Q8H PRN pain 0 01/13/25 05/08/25 History ascorbic acid (vitamin C) 500 mg 500 mg PO MOWEFR 01/1805/08/25 History tablet (Vitamin C) hydrocortisone 2.5 % topical 1 applic topical BID #28. 35 grams 05/08/25 05/08/25 Rx ointment Is last menstrual period known: No Post menopausal: Yes Patient : No : No PFSH Medical History History of echocardiogram Wears glasses Post-menopausal Cancer Low iron History of GI bleed Non-smoker BRCA gene positive Breast cancer metastasized to axillary lymph node Breast cancer, right breast Rheumatoid arthritis Surgical History History of thoracentesis History of incision and drainage S/P bilateral salpingo-oophorectomy S/P breast reconstruction S/P bilateral mastectomy Status post right breast lumpectomy (~12/2018) History of tonsillectomy Family History Son Diabetes Grandfather Heart disease Mother Cancer possible throat cancer (Went through radiation) Father Cancer lung Social History (Updated 05/08/25 @ 14:43 by Gissel Sheth) household members: none housing: apartment number of children: 2 current occupational status: employed current occupation: [employer] Smoking Status: Never smoker alcohol intake: current alcohol intake frequency: holidays/special occasions only substance use type: does not use caffeine: Yes what type of physical activity do you participate in: walking and aerobics frequency: 5-6 times per week seatbelt use: always do you feel safe at home: Yes additional social history: History 3 Elective abortions Hx Para 2 Spontaneous abortions Hx # Term Pregnancies Ectopic pregnancies Hx # Pregnancies Multiple births # of living children Past Pregnancies Del. Date Name GA/Weeks Outcome Route Bth Weight Gen Labor Lgth Anesthesia Del [facility] Provider FOB Unknown 1995 Leonel Unknown 1998 Dinah HPI Encounter for routine gynecological examination Details: BECKY HUFFMAN is a 55 year old who presents for annual exam. Last PAP: 01/25/24 - normal History of abnormal PAP: Last mammogram: Hx of BL mastectomy History of abnormal mammogram: Colon cancer screenin Other preventative health care screenings: PCP [facility] Female Reproductive History Menopausal Symptoms: No hot flashes, No night sweats, No difficulty concentrating and No change in libido ROS Const Constitutional: Reports as per HPI; Denies fatigue, increased appetite, poor appetite, night sweats, weight gain or weight loss Cardio Card: Denies chest pain Resp Resp: Denies cough or dyspnea GI GI: Reports as per HPI; Denies abdominal pain, bloating, constipation, nausea or vomiting : Reports as per HPI and other; Denies difficulty voiding, dysuria, hematuria, hot flashes, nipple discharge, pelvic pain, prolapse symptoms, urinary frequency, urinary incontinence, urinaryurgency, vaginal discharge, vaginal dryness, vaginal odor or vaginal pruritus Skin Skin/Breast: Denies changing lesions, breast mass, breast pain, breast skin changes or nipple discharge Psych Psych: Denies anxiety, change in libido, depression or difficulty concentrating Exam Const General: cooperative, healthy appearing, comfortable, no acute distress, well developed and well groomed [facility] Head: normal to inspection and normocephalic Ears: hearing grossly normal bilaterally and external ears normal Nose: external nose normal Face and sinus: normal facial exam Neck Neck: normal visual inspection, full ROM and no lymphadenopathy Thyroid: thyroid normal Chest Chest palpation & inspection: normal inspection of the chest Breast inspection: normal inspection of the breasts and normal inspection of theaxillae Breast palpation: normal palpation of the breasts (reconstruction), normal palpation of the axillae and no axillary lymphadenopathy Resp Effort & Inspection: normal respiratory effort GI Inspection: normal to inspection and non-distended Palpation: soft, no hepatosplenomegaly and no guarding General: bladder normal to palpation External Female Exam: normal external appearance, normal appearance of the urethra and no lesions Urethra: normal appearance of the urethra and normal palpation Speculum Exam - Vagina: normal appearance of the vagina and normal vaginal discharge Speculum Exam - Cervix: normal appearance of the cervix, no cervical discharge, no lesions and nontender Bimanual Exam- Vagina & Uterus: normal bimanual exam, uterine size normal, bladder normal to palpation, No tender, uterine mobility normal, consistency normal, non-tender and no cervical motion tenderness Bimanual Exam- Adnexa, other: normal adnexae, no masses and non-tender Skin General: no rashes or lesions noted Neuro General: patient alert, moves all extremities and no focal motor deficits Extrem General: normal to inspection and no pedal edema Psych Appearance: grossly normal Mental Status: mental status grossly normal Affect: normal affect Speech and Movement: speech and movement normal Attitude: cooperative Coding Level of Care Code Off vis,est,prev 40-64yrs Diagnoses Encounter for gynecological examination with abnormal finding Z01.411 Gynecological examination findings: abnormal findings PRESENT BRCA gene positive Z15.01; Z15.09 Immunosuppressed status D84.9 Rheumatoid arthritis involving left wrist, unspecified whether rheumatoid factorpresent M06.9 Rheumatoid arthritis location: wrist Rheumatoid factor presence: unspecified presence Laterality: left Assessment and Plan Assessment and Plan (1) Encounter for routine gynecological examination: Qualifiers: Gynecological examination findings: abnormal findings PRESENT QualifiedCode(s): Z01.411 - Encounter for gynecological examination (general) (routine) with abnormal findings (2) BRCA gene positive: Status: Acute Comment: s/p bl mastectomy and rrBSO, BRCA 2, Deleterious mutation PALB2. (3) Immunosuppressed status: Status: Acute Comment: annual paps while on treatment (4) Rheumatoid arthritis: Status: Chronic Qualifiers: Rheumatoid arthritis location: wrist Rheumatoid factor presence: unspecified presence Laterality: left Qualified Code(s): M06.9 - Rheumatoid arthritis, unspecified Medications: New hydrocortisone 2.5% 1 applic topical BID 28.35 grams 1RF Plan Cervical cancer screening: pap annually Breast cancer screening: no imaging due to reconstruction other health maintenance examination reviewed and orders placed if needed. Encouraged maintenance of a healthy weight and active lifestyle and handout given. Annual exam handout including recommendations for good health guidelines, Calcium/vitamin D recommendations, and basic screening information given. Problem list up to date, see problem list details for any additional plan information. Follow up in one year for annual health maintenance exam or sooner if needed. 05/08/25 [id number] <Electronically signed by Nydia lopez MD> Date _ Nydia Bains MD Cosigner Signature: Date (if applicable) CC: ~ [place] [employer] Work Phone: [phone]) [phone] History of Present illness Narrative* Gunnar Ann RT(R) - 05/03/2025 3:40 PM EDT Radiology Service Progress Note PATIENT NAME: Becky Huffman DATE OF SERVICE: May 03, 2025 TIME: 3:56 PM PATIENT IDENTITY VERIFICATION COMPLETED USING TWO (2) IDENTIFIERS: Name and Date of confirmedby patient verbally. FALL SCREENING: Has the patient had 2 falls in the last year or 1 fall with injury or currently using an Ambulatory Assistive Device (Walker, Cane, Wheelchair, Crutches, etc.)? No PATIENT GENDER DATA: Assigned female at . status: : No status:NO. PATIENT RELEVANT IMPLANT DATA REVIEWED: Yes PATIENT PRESENTS WITH AN IMPLANTABLE OR ATTACHED ANNEALER HELPER: No RADIOLOGY DEPARTMENT: CT; Exam(s) Completed: Chest PERIPHERAL IV DATA: Not applicable SIGNED BY: RT Bob(Soren) May 03, 2025 3:56 PM documented in this encounterOhio[facility]-2025 NoteHNO ID: [id number] Author: GUNNAR ANN RT(Soren) Service: ? Author Type: [place] Type: Progress Notes Filed: 05/03/2025 15:56 Note Text: Radiology Service Progress Note PATIENT NAME: Becky Huffman DATE OF SERVICE: May 03, 2025 TIME: 3:56 PM PATIENT IDENTITY VERIFICATION COMPLETED USING TWO (2) IDENTIFIERS: Name and Date of confirmed by patient verbally. FALL SCREENING: Has the patient had 2 falls in the last year or 1 fall with injury or currently using an Ambulatory Assistive Device (Walker, Cane, Wheelchair, Crutches, etc.)? No PATIENT GENDER DATA: Assigned female at . status: : No status: NO. PATIENT RELEVANT IMPLANT DATA REVIEWED: Yes PATIENT PRESENTS WITH AN IMPLANTABLE OR ATTACHED ANNEALER HELPER: No RADIOLOGY DEPARTMENT: CT; Exam(s) Completed: Chest PERIPHERAL IV DATA: Not applicable SIGNED BY: RT Bob(R) May 03, 2025 3:56 [facility]07-10-2025 Telephone encounter Note* Telephone Encounter - Gunnar Neves LPN - 04/27/2025 2:39 PM EDT Faxed notes. Gunnar Neves LPN [facility]07-10-2025 Miscellaneous Notes* Telephone Encounter - Gunnar Neves LPN - 04/27/2025 2:39 PM EDT Faxed notes. Gunnar Neves LPN * Telephone Encounter - Gunnar Neves LPN - 04/27/2025 2:33 PM EDT Shabnam with office of Dr. Corral and Padma Michaud, YVES to request recent office visit notes to befaxed to: . Gunnar Neves LPN documented in this encounterOhiohealth [facility]-2025 Telephone encounter Note * Telephone Encounter - Gunnar Neves LPN - 04/27/2025 2:33 PM EDT Shabnam with office of Dr. Corral and Padma Michaud, YVES to request recent office visit notes to befaxed to: . Gunnar Neves LPN [facility]06-27-2025 History of Present illness Narrative* Coy Loomis APRN.CNP - 04/14/2025 10:00 AM EDT Images from the original note were not included. Pulmonary Medicine Patients name: Becky Huffman PCP: Becky Ireland APRN.RAY CC: follow-up HPI: Becky Huffman is a 54 year old female non-smoker with PMH significant for history of right breast cancer, BRCA positive s/p bilateral mastectomy, radiation and anastrozole, rheumatoid arthritis diagnosed age 38, diverticulosis. New patient 4/29/25 for pleural effusion. Had hospitalization in late November d/t influenza, pneumonia, pleural effusion, bacteremia and septic arthritis. Was supposed to have thoracentesis on 02/07 but it was canceled d/t feeling the effusion was not large enough to drain. She was started on Augmentin for 3 weeks after her RAMON and completed follow-up chest xray on 03/28. Review of chest xray shows hazy opacity in area of previous effusion. Not currently on inhaled therapy. She presents today for follow-up. Since her last visit, she reports feeling well. She completed 3 week course of Augmentin. Has been able to resume normal activity as far as work and exercise. Denies cough, wheezing or chest tightness. Having some exertional dyspnea but has been gradually improving. Has the continued complaint of acatch in her right ribs but is not as frequent compared to prior. Denies fevers, chills, body aches and night sweats. She had chest xray on 03/28 with possible hazy opacity in the right lower lung. Holding biologic therapy (Cimzia) d/t recent infection but per insurance and benefits clerk, will remain off therapy at this time as she currently denies joint pain. PAST MEDICAL HISTORY Diagnosis Date Breast cancer ([facility]) 2018 PMH - PAST MEDICAL HISTORY OF FATIGUE PMH - PAST MEDICAL HISTORY OF achy joints Premenstrual tension syndromes PMS Rheumatoid arthritis involving multiple sites ([facility]) 05/20/2021 Rheumatoid arthritis(714.0) Allergies: No Known Allergies Medication List Accurate as of April 13, 2025 2:02 PM. If you have any questions, ask your nurse or doctor. CONTINUE taking these medications anastrozole 1 mg tablet Commonly known as: ARIMIDEX Take 1 tablet by mouth once daily. ascorbic acid (vitamin C) 500 mg tablet Commonly known as: VITAMIN C Take 1 tablet by mouth every Thursday, Thursday, and Thursday. CALCIUM 600 + D ORAL CIMZIA SQ DAILY MULTIVITAMIN tablet Generic drug: multivitamin ferrous sulfate 325 mg (65 mg iron) tablet hydrOXYchloroQUINE 200 mg tablet Commonly known as: PLAQUENIL leflunomide 20 mg tablet Commonly known as: ARAVA VITAMIN D3 PO DATA: I personally reviewed and analyzed all labs, radiographs and available pulmonary function testing CXR: 03/28/2025 CT Chest: 01/2025 IMPRESSION: 1. Unchanged small loculated right pleural effusion 2. No new suspicious pulmonary nodules 3. No thoracic lymphadenopathy Tourist Adviser: PSCSintia Transcribe Date/Time: Feb 14 2025 2:52P Dictated by : IAN OLVERA MD This examination was interpreted and the report reviewed and electronically signed by: IAN OLVERA MD on Feb 14 2025 3:23PM EST Review of Systems Constitutional: Negative for activity change, appetite change and unexpected weight change. HENT: Negative for congestion and postnasal drip. Respiratory: Positive for shortness of breath. Negative for cough, chest tightness and wheezing. Cardiovascular: Negative for chest pain, palpitations and leg swelling. Neurological: Negative for weakness. BP 122/76 Pulse (!) 59 Resp 18 Wt 59 kg (130 lb) LMP 12/04/2016 SpO2 100% BMI 21.02 kg/m Physical Exam Vitals reviewed. Constitutional: General: She is not in acute distress. Appearance: Normal appearance. She is not ill-appearing. HENT: Head: Normocephalic. Cardiovascular: Rate and Rhythm: Normal rate and regular rhythm. Pulses: Normal pulses. Pulmonary: Effort: Pulmonary effort is normal. No respiratory distress. Breath sounds: No wheezing or rhonchi. Musculoskeletal: Right lower leg: No edema. Left lower leg: No edema. Skin: General: Skin is warm and dry. Capillary Refill: Capillary refill takes less than 2 seconds. Neurological: General: No focal deficit present. Mental Status: She is alert. ASSESSMENT/PLAN: 1. Parapneumonic effusion - ICD9: 511.89, ICD10: J18.9, J91.8 (primary diagnosis) - s/p Augmentin x3 weeks. - stable exam and vital signs - chest xray not suggestive of resolution. - will obtain chest CT 2. Rheumatoid arthritis involving multiple sites with positive rheumatoid factor (HCC) - ICD9: 714.0, ICD10: M05.79 - Cimzia held d/t infection. Per insurance and benefits clerk, will continue to hold d/t stable symptoms. Portions of this documentation were copied and pasted from previous office visit notes in order to provide a cohesive continuity of the history. The note has been reviewed and edited and updated as necessary. Coy Loomis APRN.ATMOSPHERIC CHEMIST documented in this encounterOhiohealth [facility]06-27-2025 NoteHNO ID: [id number] Author: COY LOOMIS APRN.CNP Service: ? Author Type: Nurse Practitioner Type: Progress Notes Filed: 04/18/2025 16:17 Note Text: Pulmonary Medicine Patients name: Becky Huffman PCP: Becky Ireland APRN.CNP CC: follow-up HPI: Becky Huffman is a 54 year old female non-smoker with PMH significant for history of right breast cancer, BRCA positive s/p bilateral mastectomy, radiation and anastrozole, rheumatoid arthritis diagnosed age 38, diverticulosis. New patient 02/14/25 for pleural effusion. Had hospitalization in late November d/t influenza, pneumonia, pleural effusion, bacteremia and septic arthritis. Was supposed to have thoracentesis on 02/07 but it was canceled d/t feeling the effusion was not large enough to drain. She was started on Augmentin for 3 weeks after her RAMON and completed follow-up chest xray on 03/28. Review of chest xray shows hazy opacity in area of previous effusion. Not currently on inhaled therapy. She presents today for follow-up. Since her last visit, she reports feeling well. She completed 3 week course of Augmentin. Has been able to resume normal activity as far as work and exercise. Denies cough, wheezing or chest tightness. Having some exertional dyspnea but has been gradually improving. Has the continued complaint of a catch in her right ribs but is not as frequent compared to prior. Denies fevers, chills, body aches and night sweats. She had chest xray on 03/28 with possible hazy opacity in the right lower lung. Holding biologic therapy (Cimzia) d/t recent infection but per insurance and benefits clerk, will remain off therapy at this time as she currently denies joint pain. PAST MEDICAL HISTORY Diagnosis Date Breast cancer (HCC) 2019 PMH - PAST MEDICAL HISTORY OF FATIGUE PMH - PAST MEDICAL HISTORY OF achy joints Premenstrual tension syndromes PMS Rheumatoid arthritis involving multiple sites ([facility]) 05/20/2021 Rheumatoid arthritis(714.0) Allergies: No Known Allergies Medication List Accurate as of April 13, 2025 2:02 PM. If you have any questions, ask your nurse or doctor. CONTINUE taking these medications anastrozole 1 mg tablet Commonly known as: ARIMIDEX Take 1 tablet by mouth once daily. ascorbic acid (vitamin C) 500 mg tablet Commonly known as: VITAMIN C Take 1 tablet by mouth every Thursday, Thursday, and Thursday. CALCIUM 600 + D ORAL CIMZIA SQ DAILY MULTIVITAMIN tablet Generic drug: multivitamin ferrous sulfate 325 mg (65 mg iron) tablet hydrOXYchloroQUINE 200 mg tablet Commonly known as: PLAQUENIL leflunomide 20 mg tablet Commonly known as: ARAVA VITAMIN D3 PO DATA: I personally reviewed and analyzed all labs, radiographs and available pulmonary function testing CXR: 03/28/2025 CT Chest: 01/2025 IMPRESSION: 1. Unchanged small loculated right pleural effusion 2. No new suspicious pulmonary nodules 3. No thoracic lymphadenopathy Tourist Adviser: JAEL Transcribe Date/Time: Feb 14 2025 2:52P Dictated by : IAN OLVERA MD This examination was interpreted and the report reviewed and electronically signed by: IAN OLVERA MD on Feb 14 2025 3:23PM EST Review of Systems Constitutional: Negative for activity change, appetite change and unexpected weight change. HENT: Negative for congestion and postnasal drip. Respiratory: Positive for shortness of breath. Negative for cough, chest tightness and wheezing. Cardiovascular: Negative for chest pain, palpitations and leg swelling. Neurological: Negative for weakness. BP 122/76 Pulse (!) 59 Resp 18 Wt 59 kg (130 lb) LMP 12/04/2016 SpO2 100% BMI 21.02 kg/m? Physical Exam Vitals reviewed. Constitutional: General: She is not in acute distress. Appearance: Normal appearance. She is not ill-appearing. HENT: Head: Normocephalic. Cardiovascular: Rate and Rhythm: Normal rate and regular rhythm. Pulses: Normal pulses. Pulmonary: Effort: Pulmonary effort is normal. No respiratory distress. Breath sounds: No wheezing or rhonchi. Musculoskeletal: Right lower leg: No edema. Left lower leg: No edema. Skin: General: Skin is warm and dry. Capillary Refill: Capillary refill takes less than 2 seconds. Neurological: General: No focal deficit present. Mental Status: She is alert. ASSESSMENT/PLAN: 1. Parapneumonic effusion - ICD9: 511.89, ICD10: J18.9, J91.8 (primary diagnosis) - s/p Augmentin x3 weeks. - stable exam and vital signs - chest xray not suggestive of resolution. - will obtain chest CT 2. Rheumatoid arthritis involving multiple sites with positive rheumatoid factor (HCC) - ICD9: 714.0, ICD10: M05.79 - Cimzia held d/t infection. Per insurance and benefits clerk, will continue to hold d/t stable symptoms. Portions of this documentation were copied and pasted from previous office visit notes in order to provide a cohesive continuity of the history. The note has been reviewed and edited (more content not included)...[facility]06-25-2025 Telephone encounter Note* Telephone Encounter - Coy Loomis APRN.CNP - 04/12/2025 3:12 PM EDT Returned call and spoke with patients provider. Coy Loomis APRN.RAY [facility] Work Phone: [phone]) 850-295006-25-2025 Miscellaneous Notes* Telephone Encounter - Coy Loomis APRN.CNP - 04/12/2025 3:12 PM EDT Returned call and spoke with patients provider. Coy Loomis APRN.RAY * Telephone Encounter - Brianda Rose MA - 04/12/2025 2:14 PM EDT Received a call from this patients Rheumatology office. They are asking to speak directly with Coy Loomis. Attempted to reach office via phone. No answer. Office can be reached back at [phone]. documented in this encounterOhiohealth [facility]06-25-2025 Telephone encounter Note * Telephone Encounter - Brianda Rose MA - 04/12/2025 2:14 PM EDT Received a call from this patients Rheumatology office. They are asking to speak directly with Coy Loomis. Attempted to reach office via phone. No answer. Office can be reached back at [phone]. [facility]06-23-2025 Miscellaneous Notes* Telephone Encounter - Marvin Johnson LPN - 04/10/2025 10:36 AM EDT Pt. accepted time slot. Scheduled. Marvin Johnson LPN * Telephone Encounter - Benita Celeste - 04/07/2025 2:02 PM EDT Appears we have that slot on hold for her and waiting for a return call to see if she can take it due to work. * Telephone Encounter - Benita Celeste - 04/05/2025 10:31 AM EDT Patient called back to r/s cancelled appointment today and declined 04/07/25. Next opening is the end of April and upset this is the next opening in the department and asked that we send a note to provider asking if she needs this follow up as she reviewed her results on line, please advise the patient. documented in this encounterOhiohealth [facility]06-23-2025 Telephone encounter Note * Telephone Encounter - Marvin Johnson LPN - 04/10/2025 10:36 AM EDT Pt. accepted time slot. Scheduled. Marvin Johnson LPN [facility]06-20-2025 Telephone encounter Note* Telephone Encounter - Benita Celeste - 04/07/2025 2:02 PM EDT Appears we have that slot on hold for her and waiting for a return call to see if she can take it due to work. [facility]06-18-2025 Telephone encounter Note* Telephone Encounter - Benita Celeste - 04/05/2025 10:31 AM EDT Patient called back to r/s cancelled appointment today and declined 04/07/25. Next opening is the end of April and upset this is the next opening in the department and asked that we send a note to provider asking if she needs this follow up as she reviewed her results on line, please advise the patient. [facility]06-10-2025 History of Present illness Narrative* Sirena Lester RT(R) - 03/28/2025 2:00 PM EDT Radiology Service Progress Note PATIENT NAME: Becky Huffman DATE OF SERVICE: March 28, 2025 TIME: 1:48 PM PATIENT IDENTITY VERIFICATION COMPLETED USING TWO (2) IDENTIFIERS: Name and Date of confirmedby patient verbally. FALL SCREENING: Has the patient had 2 falls in the last year or 1 fall with injury or currently using an Ambulatory Assistive Device (Walker, Cane, Wheelchair, Crutches, etc.)? No PATIENT GENDER DATA: Assigned female at . status: : No status:NO. PATIENT RELEVANT IMPLANT DATA REVIEWED: Not Applicable PATIENT PRESENTS WITH AN IMPLANTABLE OR ATTACHED ANNEALER HELPER: No RADIOLOGY DEPARTMENT: General X-ray: Exam(s) Completed: Chest X-Ray PERIPHERAL IV DATA: Not applicable SIGNED BY: RT Roma(R) March 28, 2025 1:48 PM documented in this encounterOhiohealth Arthur [facility]06-10-2025 NoteHNO ID: [id number] Author: SIRENA LESTER RT(R) Service: Radiology Author Type: Technologist Type: Progress Notes Filed: 03/28/2025 13:57 Note Text: Radiology Service Progress Note PATIENT NAME: Becky Huffman DATE OF SERVICE: March 28, 2025 TIME: 1:48 PM PATIENT IDENTITY VERIFICATION COMPLETED USING TWO (2) IDENTIFIERS: Name and Date of confirmed by patient verbally. FALL SCREENING: Has the patient had 2 falls in the last year or 1 fall with injury or currently using an Ambulatory Assistive Device (Walker, Cane, Wheelchair, Crutches, etc.)? No PATIENT GENDER DATA: Assigned female at . status: : No status: NO. PATIENT RELEVANT IMPLANT DATA REVIEWED: Not Applicable PATIENT PRESENTS WITH AN IMPLANTABLE OR ATTACHED ANNEALER HELPER: No RADIOLOGY DEPARTMENT: General X-ray: Exam(s) Completed: Chest X-Ray PERIPHERAL IV DATA: Not applicable SIGNED BY: RT Roma(R) March 28, 2025 1:48 [facility]05-09-2025 Telephone encounter Note* Telephone Encounter - Radha Perdomo LPN - 02/24/2025 9:53 AM EDT Patient is aware of all information. Radha Perdomo LPN [facility]05-09-2025 Miscellaneous Notes* Telephone Encounter - Radha Perdomo LPN - 02/24/2025 9:53 AM EDT Patient is aware of all information. Radha Perdomo LPN * Telephone Encounter - Fran Gomez - 02/24/2025 9:23 AM EDT Labs continue to improve. (Hgb will likely take a few months to recover from sepsis) Continue with PO iron and vit C MWF. Fran Gomez APRN.ATMOSPHERIC CHEMIST * Telephone Encounter - Tracie Bray LPN - 02/24/2025 9:00 AM EDT Patient read her lab results on Mychart. Taking Iron and Vit C MWF Leaving this afternoon to go out of state and returning Thursday. She is asking if current medications should remain the same, and if anything needs addressed before she leaves. Tracie Bray LPN * Telephone Encounter - Jessica Knowles - 02/24/2025 8:32 AM EDT Patient has reviewed labs from 02/23 and is requesting to speak to clinical. She said she feels fine,but is flying out of state today and would like to make sure everything is ok. documented in this encounterOhiohealth [facility]05-09-2025 Telephone encounter Note * Telephone Encounter - Fran Gomez - 02/24/2025 9:23 AM EDT Labs continue to improve. (Hgb will likely take a few months to recover from sepsis) Continue with PO iron and vit C MWF. Fran Gomez APRN.ATMOSPHERIC CHEMIST [facility]05-09-2025 Telephone encounter Note* Telephone Encounter - Tracie Bray LPN - 02/24/2025 9:00 AM EDT Patient read her lab results on Mychart. Taking Iron and Vit C MWF Leaving this afternoon to go out of state and returning Thursday. She is asking if current medications should remain the same, and if anything needs addressed before she leaves. Tracie Bray LPN [facility]05-09-2025 Telephone encounter Note* Telephone Encounter - Jessica Knowles - 02/24/2025 8:32 AM EDT Patient has reviewed labs from 02/23 and is requesting to speak to clinical. She said she feels fine,but is flying out of state today and would like to make sure everything is ok. [facility] Work Phone: [phone]) 318-491105-05-2025 Telephone encounter Note* Telephone Encounter - Sis Stockton DO - 02/20/2025 12:54 PM EDT Filed. Thank you. [facility]05-05-2025 Miscellaneous Notes* Telephone Encounter - Sis Stockton DO - 02/20/2025 12:54 PM EDT Filed. Thank you. * Telephone Encounter - Radha Perdomo LPN - 02/20/2025 12:[address] Stockton- please file orders. Patient will be in later this week for labs and walk-in at [address]lab. Radha Perdomo LPN * Telephone Encounter - Blessing Quiroz LPN - 02/20/2025 8:45 AM EDT Left message for pt. To contact office concerning her recent CT results. Blessing Quiroz LPN * Telephone Encounter - Sis Stockton DO - 02/19/2025 2:52 PM EDT Can let her know the CT scans showed no sign of cancer. She is following with pulmonary medicine for the right-sided effusion. She has been on oral iron replacement for several weeks. Recommend checking CBC/iron studies later this week. Sis Stockton DO documented in this encounterOhiohealth Arthur [facility]05-05-2025 Telephone encounter Note * Telephone Encounter - Radha Perdomo LPN - 02/20/2025 12:[address] Stockton- please file orders. Patient will be in later this week for labs and walk-in at [facility].lab. Radha Perdomo LPN [facility]05-05-2025 Telephone encounter Note* Telephone Encounter - Blessing Quiroz LPN - 02/20/2025 8:45 AM EDT Left message for pt. To contact office concerning her recent CT results. Blessing Quiroz LPN [facility]05-04-2025 Telephone encounter Note* Telephone Encounter - Sis Stockton DO - 02/19/2025 2:52 PM EDT Can let her know the CT scans showed no sign of cancer. She is following with pulmonary medicine for the right-sided effusion. She has been on oral iron replacement for several weeks. Recommend checking CBC/iron studies later this week. Sis Stockton DO [facility]04-29-2025 History of Present illness Narrative* Austen Carter MD - 02/14/2025 11:00 AM EDT Images from the original note were not included. . [facility] [place] Note Patient name: Becky Huffman PCP: Becky Ireland APRN.ATMOSPHERIC CHEMIST Referring Physician: Consultation requested by Becky Briones for an opinion regarding pleural effusion. My final recommendations will be communicated back to the requesting physician by way of shared Medical record or letter to requesting physician via US mail. CC: Pleural effusion HPI: Becky Huffman 54 year old female non-smoker with PMH significant for history of right breast cancer, BRCA positive s/p bilateral mastectomy, radiation and anastrozole, rheumatoid arthritis diagnosed age 38, diverticulosis. Recent history notable for hospital admission due to septic arthritis. Current history started off with influenza in November. She had sore throat and lymphadenopathy withodynophagia. Was started on oral prednisone. She had significant bilateral shoulder pain left wristpain severe fatigue, fevers chills and right sided chest discomfort which she described as a catch. She has had persistent fatigue, SOB and elevated inflammatory markers. Admitted to [facility] 12/15 through December 21. She had 8 influenza bacteremia status post left wrist irrigation and debridement with synovectomy followed by left shoulder arthroscopic irrigation and debridement then right shoulder arthroscopic irrigation and debridement.left wrist surgical culture positive for haemophilus influenza and right shoulder was positive for bacillus species. She was treated with IV antibiotics, seen by infectious disease, discharged on ciprofloxacin and Flagyl. She received oral antibiotics for 2 weeks. Additionally she had note of a moderate right pleural effusion with right upper lobe infiltrate and right lower lobe infiltrate/compressive atelectasis. Since discharge she hashad persistent fatigue and intermittent shortness of breath as well as a persistent right sided catch. Due to her symptoms and persistent elevated inflammatory markers, a CTA of the chest was obtained on 02/01/2025 to assess for possible pulmonary embolism. Negative for pulmonary embolism but pertinent for a right loculated pleural effusion. She was sent to interventional radiology for thoracentesis but ultrasound revealed a small amount of fluid so risk of procedure outweighed benefits from obtaining fluid. Overall she has been feeling better. Her energy level is returning. She continues tohave weakness in her shoulders and her wrist. Occasional right sided chest pain. No fevers, chills,weight loss, night sweats. No cough or sputum production. DATA: Labs: Component Ref Range & Units 1 mo ago (12/15/24) CRP <0.9 mg/dL 32.5 High Component Ref Range & Units 1 mo ago (12/15/24) Sed Rate, Westergren 0 - 20 mm/hr 22 High Microbiology 12/16/24 Unknown Incision/Surgical Site Gram Stain - Final 12/16/24 Unknown Incision/Surgical Site Wound Culture - Final Haemophilus influenzae 12/16/24 Unknown Incision/Surgical Site Anaerobic Culture - Final No growth in 5 days. 12/16/24 Unknown Incision/Surgical Site Gram Stain - Final 12/16/24 Unknown Incision/Surgical Site Wound Culture - Final Haemophilus influenzae 12/16/24 Unknown Incision/Surgical Site Anaerobic Culture - Final No growth in 5 days. 12/19/24 07:33 Wound exudate - Aerobic & Anaerobic Swabs Gram Stain - Final 12/19/24 07:33 Wound exudate - Aerobic & Anaerobic Swabs Wound Culture - Preliminary No growth-Final to follow 12/15/24 21:37 Fluid - Synovial (joint) Gram Stain - Final 12/15/24 21:37 Fluid - Synovial (joint) Body Fluid Culture - Final Haemophilus influenzae 12/15/24 21:37 Fluid - Synovial (joint) Anaerobic Culture - Final No growth in 5 days. 12/17/24 11:00 Aspirate - Shoulder Gram Stain - Final 12/17/24 11:00 Aspirate - Shoulder Wound Culture - Final Bacillus sp., not anthracis 12/17/24 11:00 Aspirate - Shoulder Anaerobic Culture - Preliminary No growth in 48 hours. 12/15/24 22:21 Blood Culture (Wb) - Anticubital Right Blood Culture - Final Haemophilus influenzae 12/15/24 22:21 Blood Culture (Wb) - Right Forearm Blood Culture - Final Haemophilus influenzae Imaging / Diagnostic Studies: DATE OF EXAM: Feb 01 2025 3:57PM [facility] [id number] - CTA CHEST (NON GATED) W IVCON PE / PROCEDURE REASON: Elevated C-reactive protein (CRP) Clinical History: Shortness of breath Comparison: No relevant prior studies available. RESULT: Limitations: None. Evaluation for thromboembolic disease: - Right heart chambers: No thromboembolic disease. - Main pulmonary arteries: No thromboembolic disease. - Lobar pulmonary arteries: No thromboembolic disease. - Segmental pulmonary arteries: No thromboembolic disease. - Subsegmental pulmonary arteries: No thromboembolic disease. - Additional pulmonary artery findings: The main pulmonary artery is normal in caliber. Lines, tubes, and devices: None. Lung parenchyma and airways: There are peripheral reticular and groundglass opacities noted in the right leg lung apex and right upper lobe anteriorly suggestive of posttreatment changes. Findings suggestive of atelectasis in the right lower lobe. The left lung appears clear. No masses are identified. There are reticular densities in the right lower lobe and right middle lobe which may represent areas of scarring or atelectasis. Pleural space: There is a small right pleural effusion which appears loculated. Right pleural thickening is noted. Lower neck, lymph nodes, and mediastinum: The imaged thyroid gland is normal. No lymphadenopathy inthe supraclavicular, axillary, mediastinal, or hilar regions. Heart, pericardium, and thoracic vessels: No evidence of aneurysm. The thoracic aorta is ectatic and tortuous. No pericardial effusion is identified. Bones and soft tissues: No destructive bone lesion. Chest wall is unremarkable. Upper abdomen: No abnormality in the imaged upper abdomen. Localizer images: I personally reviewed the images of the chest CT which shows small loculated right pleural effusionwith some pleural enhancement, persistent right lower lobe infiltrate/atelectasis and evidence of radiation fibrosis Chest Survey Chest CT 12/2024 [facility]: IMPRESSION: 1. No pulmonary embolism is identified. Some of the distal pulmonary arteries cannot be evaluated due to suboptimal opacification. 2. Right pleural effusion with compressive atelectasis. Partial consolidation of the right upper lobe. 3. Partially visualized soft tissue emphysema and ill-defined hypodensity of the right axilla. Abscess can not be excluded. PAST MEDICAL HISTORY Diagnosis Date Breast cancer (HCC) 2018 PMH - PAST MEDICAL HISTORY OF FATIGUE PMH - PAST MEDICAL HISTORY OF achy joints Premenstrual tension syndromes PMS Rheumatoid arthritis involving multiple sites ([facility]) 05/20/2021 Rheumatoid arthritis(714.0) ALLERGIES No Known Allergies ascorbic acid, vitamin C, (VITAMIN C) 500 mg tablet Take 1 tablet by mouth every Thursday, Thursday,and Thursday. anastrozole (ARIMIDEX) 1 mg tablet Take 1 tablet by mouth once daily. hydrOXYchloroQUINE (PLAQUENIL) 200 mg tablet Take 200 mg by mouth once daily. leflunomide (ARAVA) 20 mg tablet Take 20 mg by mouth once daily. ferrous sulfate 325 mg (65 mg iron) tablet Take 325 mg by mouth once daily. amoxicillin-clavulanate potassium (AUGMENTIN) 875-125 mg per tablet Take 1 tablet by mouth two times a day for 21 days. cholecalciferol, vitamin D3, (VITAMIN D3 ORAL) Take 2,000 Units by mouth once daily. certolizumab pegol (CIMZIA SUBCUTANEOUS) Inject 200 mg subcutaneously. Twice a month calcium carbonate/vitamin D3 (CALCIUM 600 + D ORAL) Take 1 tablet by mouth once daily. DAILY MULTIVITAMIN TAB Take 1 tablet by mouth once daily. Social History Tobacco Use Smoking status: Never Smokeless tobacco: Never Vaping Use Vaping status: Never Used Substance Use Topics Alcohol use: No Drug use: No FAMILY HISTORY Problem Relation Age of Onset Cancer Mother throat - radiation Cancer Father LUNG Hypertension Brother Diabetes Brother type 2 Hypertension Brother other (CHF) Maternal Grandfather Hypertension Paternal Grandfather Heart Paternal Grandfather No Known Problems Daughter Diabetes Son Type 1 Cancer Other Cancer Other PAST SURGICAL HISTORY Procedure Laterality Date COLONOSCOPY BX SINGLE/MULTI 02/13/2025 Dr. Harrington @ [facility]; internal hemorrhoids, diverticulosis in recto-sigmoid, sigmoid and descending colon; ulcers in the sigmoid colon COLONOSCOPY, COLORECTAL SCREEN 10/17/2019 Dr. Travis Elias, [facility]; 4mm sessile polyp in proximal sigmoid colon, many diverticula in sigmoid colon, repeat in 5yr's EGD W/O [facility] SPEC VARICIES INJ 02/13/2025 Dr. Harrington @ [facility]; small hiatal hernia MASTECTOMY HX Bilateral 2019 with tissue flap reconstruction PAST SURGICAL HISTORY OF Right 12/28/2018 lumpectomy PROVIDE CHEMOTHERAPY AGENT 2019 RADIATION THERAPY 2019 REMOVAL OF OVARY(S) Bilateral 02/2020 SALPINGECTOMY Bilateral 02/2020 SHOULDER SURGERY HX Bilateral 2024 TONSILLECTOMY PRIMARY/SECONDARY <AGE 10 Tonsillectomy WRIST LEFT OP SURGERY 2024 arthroscopy PMH, Social history, family history and surgical history reviewed and updated in EMR REVIEW OF SYSTEMS: CONSTITUTIONAL: No fevers, chills, nightsweats, unintended weight loss. Some fatigue HEENT: Some congestion/sinus symptoms. No allergies EYES: No visual changes CARDIOVASCULAR: No angina, palpitations, edema. PULM: See HPI GI: No dysphagia/odynophagia, problematic reflux. Hemorrhoidal bleeding : No urinary complaints, including dysuria, gross hematuria or pyuria. NEURO: No new balance problems, peripheral weakness/paresthesias or numbness of concern. MUSC-SKEL: Polyarticular joint pain PSY: No concerns regarding depression, anxiety INTEGUMENTARY: No new skin changes PHYSICAL EXAMINATION: BP 104/64 Pulse 102 Resp 17 SpO2 97% LMP 12/04/2016 General Appearance: Age appropriate, NAD. Skin: Skin color, texture, turgor normal, no suspicious rashes or lesions. Head: Normocephalic, no masses, lesions, tenderness or abnormalities. Eyes: Sclera, conjunctiva normal. Oropharynx: No oral lesions, erythema. Neck: No masses or adenopathy. Lungs: Not labored, normal to percussion, absent breath sounds in right base. Heart: Regular rate and rhythm, no murmurs. Extremities: No edema, no active synovitis. Assessment/Plan: 1. Parapneumonic effusion -Suspect parapneumonic effusion. Pleural enhancement somewhat concerning but does not appear to have symptoms consistent with an empyema. Definitive diagnosis cannot be made without fluid sample. SeeHPI -Started Augmentin for 3 weeks -Repeat imaging 2. History of pneumonia -Suspect sequence of events were influenza infection followed by bacterial pneumonia resulting in bacteremia and septic arthritis in the face of immunosuppressed state -See #1 3. History of septic arthritis, haemophilus influenza -S/p surgical debridement 4. Rheumatoid arthritis, multiple sites, RF positive -Recommend holding biologic for arthritis until completes antibiotics I spent a total of 80 minutes on the date of the service which included preparing to see the patient, [id number] patient care, completing clinical documentation, obtaining and/or reviewing separately obtained history, performing a medically appropriate examination, ordering medications, tests, or procedures, and independently interpreting results (not separately reported). Austen Carter MD [facility] [place] documented in this encounterOhiohealth [facility]04-29-2025 NoteHNO ID: [id number] Author: AUSTEN CARTER MD Service: ? Author Type: Physician Type: Progress Notes Filed: 02/14/2025 18:47 Note Text: . [facility] [place] Note Patient name: Becky Huffman PCP: Becky Ireland APRN.ATMOSPHERIC CHEMIST Referring Physician: Consultation requested by Becky Briones for an opinion regarding pleural effusion. My final recommendations will be communicated back to the requesting physician by way of shared Medical record or letter to requesting physician via US mail. CC: Pleural effusion HPI: Becky Huffman 54 year old female non-smoker with PMH significant for history of right breast cancer, BRCA positive s/p bilateral mastectomy, radiation and anastrozole, rheumatoid arthritis diagnosed age 38, diverticulosis. Recent history notable for hospital admission due to septic arthritis. Current history started off with influenza in November. She had sore throat and lymphadenopathy with odynophagia. Was started on oral prednisone. She had significant bilateral shoulder pain left wrist pain severe fatigue, fevers chills and right sided chest discomfort which she described as a catch. She has had persistent fatigue, SOB and elevated inflammatory markers. Admitted to [facility] 12/15 through December 21. She had 8 influenza bacteremia status post left wrist irrigation and debridement with synovectomy followed by left shoulder arthroscopic irrigation and debridement then right shoulder arthroscopic irrigation and debridement.left wrist surgical culture positive for haemophilus influenza and right shoulder was positive for bacillus species. She was treated with IV antibiotics, seen by infectious disease, discharged on ciprofloxacin and Flagyl. She received oral antibiotics for 2 weeks. Additionally she had note of a moderate right pleural effusion with right upper lobe infiltrate and right lower lobe infiltrate/compressive atelectasis. Since discharge she has had persistent fatigue and intermittent shortness of breath as well as a persistent right sided catch. Due to her symptoms and persistent elevated inflammatory markers, a CTA of the chest was obtained on 02/01/2025 to assess for possible pulmonary embolism. Negative for pulmonary embolism but pertinent for a right loculated pleural effusion. She was sent to interventional radiology for thoracentesis but ultrasound revealed a small amount of fluid so risk of procedure outweighed benefits from obtaining fluid. Overall she has been feeling better. Her energy level is returning. She continues to have weakness in her shoulders and her wrist. Occasional right sided chest pain. No fevers, chills, weight loss, night sweats. No cough or sputum production. DATA: Labs: Component Ref Range AND Units 1 mo ago (12/15/24) CRP <0.9 mg/dL 32.5 High Component Ref Range AND Units 1 mo ago (12/15/24) Sed Rate, Westergren 0 - 20 mm/hr 22 High Microbiology 12/16/24 Unknown Incision/Surgical Site Gram Stain - Final 12/16/24 Unknown Incision/Surgical Site Wound Culture - Final Haemophilus influenzae 12/16/24 Unknown Incision/Surgical Site Anaerobic Culture - Final No growth in 5 days. 12/16/24 Unknown Incision/Surgical Site Gram Stain - Final 12/16/24 Unknown Incision/Surgical Site Wound Culture - Final Haemophilus influenzae 12/16/24 Unknown Incision/Surgical Site Anaerobic Culture - Final No growth in 5 days. 12/19/24 07:33 Wound exudate - Aerobic AND Anaerobic Swabs Gram Stain - Final 12/19/24 07:33 Wound exudate - Aerobic AND Anaerobic Swabs Wound Culture - Preliminary No growth-Final to follow 12/15/24 21:37 Fluid - Synovial (joint) Gram Stain - Final 12/15/24 21:37 Fluid - Synovial (joint) Body Fluid Culture - Final Haemophilus influenzae 12/15/24 21:37 Fluid - Synovial (joint) Anaerobic Culture - Final No growth in 5 days. 12/17/24 11:00 Aspirate - Shoulder Gram Stain - Final 12/17/24 11:00 Aspirate - Shoulder Wound Culture - Final Bacillus sp., not anthracis 12/17/24 11:00 Aspirate - Shoulder Anaerobic Culture - Preliminary No growth in 48 hours. 12/15/24 22:21 Blood Culture (Wb) - Anticubital Right Blood Culture - Final Haemophilus influenzae 12/15/24 22:21 Blood Culture (Wb) - Right Forearm Blood Culture - Final Haemophilus influenzae Imaging / Diagnostic Studies: DATE OF EXAM: Feb 01 2025 3:57PM [facility] 0564 - CTA CHEST (NON GATED) W IVCON PE / PROCEDURE REASON: Elevated C-reactive protein (CRP) Clinical History: Shortness of breath Comparison: No relevant prior studies available. RESULT: Limitations: None. Evaluation for thromboembolic disease: - Right heart chambers: No thromboembolic disease. - Main pulmonary arteries: No thromboembolic disease. - Lobar pulmonary arteries: No thromboembolic disease. - Segmental pulmonary arteries: No thromboembolic disease. - Subsegmental pulmonary arteries: No thromboembolic diseas (more content not included)...[facility]04-28-2025 Consult note [facility] Medical Records Department [address] [place] [address] Anesthesia Postop Eval II 02/13/25 1307 MR#: [id number] Acct: [id number] Name: BECKY HUFFMAN Rep #:[id number] : 1970 54 From: Dewayne Parr MD PCP: ELIZABETH Garcia Status:REG S DC Y Race: C Location: [address] Anesthesia Postop Eval I Sum Postop Eval Completion status Anesthesia document: Postop Eval 1 completed: Yes Anesthesia Postop Eval I Summary Anesthesia Postop Eval I Summary: Anesthesia Postop Eval I: Assessment Summary Airway patent Yes 02/13/25 12:32 [email or web address] Spontaneous unlabored Yes 02/13/25 12:32 [email or web address] respirations Mental status Asleep 02/13/25 12:32 [email or web address] nausea No 02/13/25 12:32 [email or web address] Vomiting No 02/13/25 12:32 [email or web address] Anesthesia Postop Eval I: Fluid Summary Crystalloid volume administer 700 02/13/25 12:32 [email or web address] (ml) Colloids volume administered ( ml) Blood Product volume administered (ml) Total IV fluid infused 700 02/13/25 12:32 [email or web address] Anesthesia Postop Eval I: Summary Notes Anesthesia Complication No 02/13/25 12:32 [email or web address] Anesthesia Complication Comment: Post-operative progress note Anesthesia: Postop Eval II Evaluation Mental status: Awake Pain Level: 0 nausea: No Vomiting: No 02/13/25 1307 > Date _ Dewayne Parr MD Cosign Signature: Date CC: ~ Signed [facility]04-28-2025 Consult note Author Dewayne Parr [facility] Note Date/Time February 13, 2025 10: 53am [facility] Medical Records Department [address] [place] [address] Pre-Anesthesia Evaluation 02/13/25 1053 MR#: [id number] Acct: [id number] Name: BECKY HUFFMAN Rep #:[id number] : 1970 54 From: Dewayne Parr MD PCP: Becky Ireland NP-C Status:REG S DC Y Race: C Location: [facility]12-1 ASA Classification* ASA Classification ASA Classification: 2 Assessment & Plan Anesthesia* Anesthesia Assessment Anesthesia Assessment: Discussed sedation and/or anesthesia options, risks, benefits, and alternatives with patient/parents/legal guardian/POA. Questions invited. The patient/parents/legal guardian/POA seems to understand and agrees to proceedwith anesthesia plan. Reviewed the physical assessment, medical history, allergy history and patient home medications list prior to surgery/procedure/anesthetic and documented any changes. Performed airway and anesthesia risk assessments. Anesthesia Type Anesthesia Type: MAC Anesthesia Focused Assessment* Airway Assessment Mouth opens: >3 cm Mallampati Score: II Focused Labs Anesthesia Preop lab: CBC WBC 13.5 K/mm3 (4.4-11.0) H 01/13/25 12: 5 RBC 2.85 M/mm3 (4.2-5.4) L 01/13/25 12:01/13/25 Hgb 8.5 g/dL (12.0-15.0) L 01/13/25 12:21 01/13/25 Hct 26.2 % (37-47) L 01/13/25 12:01/13/25 Plt Count 466 K/mm3 (150-450) H 01/13/25 12:21 01/13/25 CHEMISTRY Potassium 4.0 mmol/L (3.3-5.1) 01/13/25 12:21 01/13/25 Sodium 137 mmol/L (133-145) 01/13/25 12:21 01/13/25 Magnesium 1.8 mg/dL (1.5-2.2) 12/15/24 20:13 12/15/24 Phosphorus 2.4 mg/dL (2.7-4.5) L 12/17/24 05:44 12/17/24 BUN 10 mg/dL (4-19) 01/13/25 12:21 01/13/25 Creatinine 0.52 mg/dL (0.70-1.20) L 01/13/25 12:21 Glucose 97 mg/dL (70-99) 01/13/25 12:21 01/13/25 POC Glucose 108 mg/dL (74-106) H 01/13/25 11:21 01/13/25 TSH 1.340 uIU/mL (0.300-4.200) 12/16/24 07:03 11/20 06/12 COAG PT 15.2 SECONDS (11.7-14.9) H 01/13/25 12:21 12/18 06/12 Pre-Assessment Diagnosis/Proposed Procedure Planned Operative Procedure(s): COLONOSCOPY AND EGD Anesthesia History 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 When Was Last Pacemaker Check QUESTION #4 FULL TEXT: You/Your Family Experience fever (hyperthermia) with Anesthesia Last Oral Intake Last Oral intake: Last Oral Intake NPO since Meds taken in AM with sips of water? Meds patient instructed to take am of surgery PONV PONV - marketing engineer: PONV - marketing engineer Female Yes 02/09/25 11:04 HX of Motion Sickness No 02/09/25 11:04 HX of N/V After Surgery No 02/09/25 11:04 Non-Smoker Yes 02/09/25 11:04 Duration of Surgery greater No 02/09/25 11:04 than 60 minutes Number of Risk Factors 2 02/09/25 11:04 PONV Score Moderate Risk 02/09/25 11:04 Height & Weight Height & Weight: Anesthesia: Height & Weight Height 5 ft 6 in 01/13/25 10:49 Respiratory Assessment Respiratory Assessment - marketing engineer: Respiratory Tract Infection Hx - marketing engineer Hx Respiratory Tract Infection No 02/09/25 11:04 STOP Sleep Apnea STOP Sleep Apnea - marketing engineer: STOP Sleep Apnea - marketing engineer Hx Hypertension No 02/09/25 11:04 Hx Sleep Apnea No 02/09/25 11:04 CPAP BIPAP Do you snore loudly (louder No 02/09/25 11:04 than talking or can be heard Do you often feel tired/ No 02/09/25 11:04 fatigued/ sleepy during daytime? Has anyone observed you stop No 02/09/25 11:04 breathing during sleep? STOP Results Negative 02/09/25 11:04 QUESTION #5 FULL TEXT : Do you snore loudly (louder than talking or can be heard through closed doors)? 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 Specify any problems Hx of Preganancy in last 3 No 02/09/25 11:04 Months Nurse Filling Out Transfusion [facility] 02/09/25 11:04 & Questions: Date: 02/09/25 02/09/25 11:04 Time: 11:14 02/09/25 11:04 Patient unable to answer at this time (ie. confused, unrespo /Reproduction History /Reproductive History - marketing engineer: /Reproductive Hx- marketing engineer Hx Now No 02/09/25 11:04 Gestational Age (in weeks): EDC: Hx Hx Para Hx Section SAB No 02/09/25 11:04 Active Medications Active Medications: Current Medications Generic Name Dose Route Start Last Admin Trade Name Freq PRN Reason Stop Dose Admin Lactated Ringer's 1,000 mls @ 15 mls/hr 02/13/25 11:00 IV .Q48H AVRIL PFSH Medical History History of echocardiogram Wears glasses Post-menopausal Cancer Low iron History of GI bleed Non-smoker BRCA gene positive Breast cancer metastasized to axillary lymph node Breast cancer, right breast Rheumatoid arthritis Home Medications ?Medication ?Instructions ?Recorded ?Last Taken ?Type multivitamin 1 tab PO DAILY general healt h 11/29/18 01/12/25 History anastrozole 1 mg tablet 1 mg PO DAILY arthritis 09/1901/12/25 History ferrous sulfate 325 mg (65 mg 325 mg PO MOWEFR anemia 10/13/19 01/13/25 History iron) tablet calcium 500 mg (as 1 ea PO BID def. 02/21/20 History carbonate)-vitamin D3 15 mcg (600 unit) tablet certolizumab pegol 400 mg/2 mL 200 mg subcut Q2W arthr itis 12/31/20 01/05/25 History (200 mg/mL x2) subcutaneous syringe kit (Cimzia) hydroxychloroquine 200 mg tablet 200 mg PO QHS arthrit is 07/09/21 01/12/25 History leflunomide 20 mg tablet 20 mg PO DAILY arthritis 01/12/25 History acetaminophen 500 mg tablet 1,000 mg PO Q8H PRN pain 0 01/13/25 Unknown History ascorbic acid (vitamin C) 500 mg 500 mg PO MOWEFR 01/18 02/10 Unknown History tablet (Vitamin C) Allergy/AdvReac Type Severity Reaction Status Date / Time No Known Allergies Allergy Verified 02/09/25 10:59 Family History Son Diabetes Grandfather Heart disease Mother Cancer possible throat cancer (Went through radiation) Father Cancer lung Surgical History History of thoracentesis History of incision and drainage S/P bilateral salpingo-oophorectomy S/P breast reconstruction S/P bilateral mastectomy Status post right breast lumpectomy (~12/2018) History of tonsillectomy Social History household members: none housing: apartment current occupational status: employed Smoking Status: Never smoker alcohol intake: current alcohol intake frequency: holidays/special occasions only substance use type: does not use caffeine: Yes what type of physical activity do you participate in: walking and aerobics frequency: 5-6 times per week seatbelt use: always do you feel safe at home: Yes additional social history: Patient works at [employer] home Review of Systems (Anesthesia) ROS Narrative System reviewed and no additional complaints, except as documented. 02/13/25 1053 <Electronically signed by Dewayne Parr MD > Date _ Dewayne Roman Signature: Date CC: ~ Signed [facility] Work Phone: [phone]) 820-836504-28-2025 Consult note [facility] Medical Records Department [address] [place], [place] [address] [address] Anesthesia Postop Eval I 02/13/25 1231 MR#: [id number] Acct: [id number] Name: DEREKBECKY HAYDEN TRAY Rep #:[id number] : 1970 54 From: Akin Pradhan PCP: ELIZABETH Garcia Status:REG S DC Y Race: C Location: [place] [address] Anesthesia: Postop Eval I Current Vital Signs Temperature: 98.4 F Pulse Rate: 92 Blood Pressure: 100/69 Respiratory Rate: 16 Pulse Ox: 97 Oxygen Delivery Method: Room Air Assessment Airway patent: Yes Spontaneous unlabored respirations: Yes Mental status: Asleep nausea: No Vomiting: No Anesthesia Complication: No Fluid Hydration Crystalloid volume administer (ml): 700 Total IV fluid infused: 700 Progress Note Anesthesia document: Postop Eval 1 completed: Yes 02/13/25 1232 > Date _ Akin Roman Signature: Date CC: ~ Signed [facility]04-28-2025 Procedure note [facility] Medical Records Department [address] [place] [address] Colonoscopy Report MR#: [id number] Acct: [id number] Name: BECKY HUFFMAN Rep #:[id number] : 1970 54 From: Carlos Harrington DO PCP: ELIZABETH Garcia Status:REG S DC Patient Name: Becky Huffman Procedure Date: 02/13/2025 12:11 PM Date of : 1970 Age: 54 Procedure: Colonoscopy Indications: Hematochezia Providers: Carlos Harrington DO Referring MD: Becky Ireland Medicines: Monitored Anesthesia Care Patient Profile: This is a 54 year old female. Refer to note in patient chart for documentation of history and physical. Patient has symptoms of acute epigastric abdominal pain and chronic dyspepsia. Last Colonoscopy: date unknown. Unable to locate last colonoscopy report. Complications: No immediate complications. Procedure: Pre-Anesthesia Assessment: - Prior to the procedure, a History and Physical was performed, and patient medications and allergies were reviewed. The patient is competent. The risks and benefits of the procedure and the sedation options and risks were discussed with the patient. All questions were answered and informed consent was obtained. Patient identification and proposed procedure were verified by the physician in the pre-procedure area. Mental Status Examination: alert and oriented. Airway Examination: normal oropharyngeal airway and neck mobility. Respiratory Examination: clear to auscultation. CV Examination: normal. Prophylactic Antibiotics: The patient does not require prophylactic antibiotics. Prior Anticoagulants: The patient has taken no anticoagulant or antiplatelet agents except for NSAID medication. ASA Grade Assessment: II - A patient with mild systemic disease. After reviewing the risks and benefits, the patient was deemed in satisfactory condition to undergo the procedure. The anesthesia plan was to use monitored anesthesia care (MAC). Immediately prior to administration of medications, the patient was re-assessed for adequacy to receive sedatives. The heart rate, respiratory rate, oxygen saturations, blood pressure, adequacy of pulmonary ventilation, and response to care were monitored throughout the procedure. The physical status of the patient was re-assessed after the procedure. After I obtained informed consent, the scope was passed under direct vision. Throughout the procedure, the patient's blood pressure, pulse, and oxygen saturations were monitored continuously. The Colonoscope was introduced through the anus and advanced to the terminal ileum. The colonoscopy was performed without difficulty. The patient tolerated the procedure well. The quality of the bowel preparation was adequate. The ileocecal valve, appendiceal orifice, and rectum were photographed. Scope In: 12:12:38 PM Scope Withdrawal Time 0 hours 7 minutes 36 seconds Scope Out: 12:22:40 PM Total Procedure Duration Time 0 hours 10 minutes 2 seconds Findings: The perianal and digital rectal examinations were normal. Internal hemorrhoids were found during retroflexion. The hemorrhoids were Grade II (internal hemorrhoids that prolapse but reduce spontaneously). A few small-mouthed diverticula were found in the recto-sigmoid colon, sigmoid colon and descending colon. A few three mm ulcers were found in the sigmoid colon and at the hepatic flexure. No bleeding was present. Biopsies were taken with a cold forceps for histology. Verification of patient identification for the specimen was done. Estimated blood loss was minimal. The terminal ileum appeared normal. The exam was otherwise without abnormality on direct and retroflexion views. Impression: - Internal hemorrhoids. - Diverticulosis in the recto-sigmoid colon, in the sigmoid colon and in the descending colon. - A few ulcers in the sigmoid colon and at the hepatic flexure. Biopsied. - The examined portion of the ileum was normal. - The examination was otherwise normal on direct and retroflexion views. Recommendation: - Discharge patient to home. - Resume previous diet. - Continue present medications. - Await pathology results. - Repeat colonoscopy is recommended. The colonoscopy date will be determined after pathology results from today's exam become available for review. Procedure Code(s): --- Professional --- 37897, Colonoscopy, flexible; with biopsy, single or multiple CPT copyright 2021 [employer]. All rights reserved. The codes documented in this report are preliminary and upon storekeeper helper review may be revised to meet current compliance requirements. Carlos Harrington DO 02/13/2025 12:30:22 PM This report has been signed electronically. Number of Addenda: 0 Note Initiated On: 02/13/2025 12:11 PM 02/13/25 1230 Date _ Carlos Andrade Signature: Date (if indicated) CC: PIN CHASERTodd Ireland; Carlos Harrington DO ~ Date Dictated: 02/13/25 1211 Date Transcribed: Tourist Adviser: RF Signed [facility]04-28-2025 Procedure note [facility] Medical Records Department [address] [place] [address] Operative Report - CC Letter MR#: [id number] Acct: [id number] Name: BECKY HUFFMAN Rep #:[id number] : 1970 54 From: Carlos Harrington DO PCP: ELIZABETH Garcia Status:REG S DC 02/13/2025 Becky Ireland Re : Colonoscopy procedure for Becky Yesenia Hir Shu This procedure was performed on Thursday, February 13, 2025. My impressions and recommendations are as follows: Impressions : - Internal hemorrhoids. - Diverticulosis in the recto-sigmoid colon, in the sigmoid colon and in the descending colon. - A few ulcers in the sigmoid colon and at the hepatic flexure. Biopsied. - The examined portion of the ileum was normal. - The examination was otherwise normal on direct and retroflexion views. Recommendations : - Discharge patient to home. - Resume previous diet. - Continue present medications. - Await pathology results. - Repeat colonoscopy is recommended. The colonoscopy date will be determined after pathology results from today's exam become available for review. My findings are described in the full procedure note, which is enclosed. If I can be of further assistance, please feel free to contact me at . Sincerely, Carlos Harrington DO 02/13/2025 12:30:22 PM This report has been signed electronically. 02/13/25 1230 Date _ Carlos Andrade Signature: Date (if indicated) CC: PIN CHASER-C Becky Ireland; Carlos Harrington DO ~ Date Dictated: 02/13/25 1211 Date Transcribed: Tourist Adviser: RF Signed [facility]04-28-2025 Procedure note [facility] Medical Records Department [address] [place] [address] EGD Report MR#: [id number] Acct: [id number] Name: BECKY HUFFMAN Rep #:[id number] : 1970 54 From: Carlos Harrington DO PCP: ELIZABETH Garcia Status:REG S DC Patient Name: Becky Huffman Procedure Date: 02/13/2025 11:56 AM Date of : 1970 Age: 54 Procedure: Upper GI endoscopy Indications: Acute post hemorrhagic anemia, Iron deficiency anemia, Recent gastrointestinal bleeding Providers: Carlos Harrington DO Referring MD: Becky Ireland Medicines: Monitored Anesthesia Care Patient Profile: This is a 54 year old female. Refer to note in patient chart for documentation of history and physical. Patient has symptoms of acute epigastric abdominal pain and chronic dyspepsia. Complications: No immediate complications. Procedure: Pre-Anesthesia Assessment: - Prior to the procedure, a History and Physical was performed, and patient medications and allergies were reviewed. The patient is competent. The risks and benefits of the procedure and the sedation options and risks were discussed with the patient. All questions were answered and informed consent was obtained. Patient identification and proposed procedure were verified by the physician in the pre-procedure area. Mental Status Examination: alert and oriented. Airway Examination: normal oropharyngeal airway and neck mobility. Respiratory Examination: clear to auscultation. CV Examination: normal. Prophylactic Antibiotics: The patient does not require prophylactic antibiotics. Prior Anticoagulants: The patient has taken no anticoagulant or antiplatelet agents except for NSAID medication. ASA Grade Assessment: II - A patient with mild systemic disease. After reviewing the risks and benefits, the patient was deemed in satisfactory condition to undergo the procedure. The anesthesia plan was to use monitored anesthesia care (MAC). Immediately prior to administration of medications, the patient was re-assessed for adequacy to receive sedatives. The heart rate, respiratory rate, oxygen saturations, blood pressure, adequacy of pulmonary ventilation, and response to care were monitored throughout the procedure. The physical status of the patient was re-assessed after the procedure. After obtaining informed consent, the endoscope was passed under direct vision. Throughout the procedure, the patient's blood pressure, pulse, and oxygen saturations were monitored continuously. The Colonoscope was introduced through the mouth, and advanced to the third part of the duodenum. Small bowel enteroscopy was deemed necessary. The upper GI endoscopy was accomplished without difficulty. The patient tolerated the procedure well. Scope In: 12:07:44 PM Scope Out: 12:10:35 PM Total Procedure Duration Time 0 hours 2 minutes 51 seconds Findings: The examined esophagus was normal. A small hiatal hernia was present. Patchy mildly erythematous mucosa without bleeding was found in the gastric body. Biopsies were taken with a cold forceps for histology. Verification of patient identification for the specimen was done. Estimated blood loss was minimal. Biopsies were taken with a cold forceps for Helicobacter pylori testing. Verification of patient identification for the specimen was done. Estimated blood loss was minimal. No gross lesions were noted in the entire examined duodenum. Impression: - Normal esophagus. - Small hiatal hernia. - Erythematous mucosa in the gastric body. Biopsied. - No gross lesions in the entire examined duodenum. Recommendation: - Discharge patient to home. - Resume previous diet. - Continue present medications. - Await pathology results. Procedure Code(s): --- Professional --- 30615, Small intestinal endoscopy, enteroscopy beyond second portion of duodenum, not including ileum; with biopsy, single or multiple CPT copyright 2021 [employer]. All rights reserved. The codes documented in this report are preliminary and upon storekeeper helper review may be revised to meet current compliance requirements. Carlos Harrington DO 02/13/2025 12:27:42 PM This report has been signed electronically. Number of Addenda: 0 Note Initiated On: 02/13/2025 11:56 AM 02/13/25 1227 Date _ Carlos Andrade Signature: Date (if indicated) CC: PIN CHASERTodd Ireland; Carlos Harrington DO ~ Date Dictated: 02/13/25 1156 Date Transcribed: Tourist Adviser: RF Signed [facility]04-28-2025 Procedure note [facility] Medical Records Department [address] [facility] [place] [address] Operative Report - CC Letter MR#: [id number] Acct: [id number] Name: BECKY HUFFMAN Rep #:[id number] : 1970 54 From: Carlos Harrington DO PCP: ELIZABETH Garcia Status:REG S DC 02/13/2025 Becky Ireland Re : Upper GI endoscopy procedure for Becky Yesenia Ireland This procedure was performed on Thursday, February 13, 2025. My impressions and recommendations are as follows: Impressions : - Normal esophagus. - Small hiatal hernia. - Erythematous mucosa in the gastric body. Biopsied. - No gross lesions in the entire examined duodenum. Recommendations : - Discharge patient to home. - Resume previous diet. - Continue present medications. - Await pathology results. My findings are described in the full procedure note, which is enclosed. If I can be of further assistance, please feel free to contact me at . Sincerely, Carlos Harrington DO 02/13/2025 12:27:42 PM This report has been signed electronically. 02/13/251226 Date _ Carlos Andrade Signature: Date (if indicated) CC: YVES-C Becky Ireland; Carlos Harrington DO ~ Date Dictated: 02/13/25 1156 Date Transcribed: Tourist Adviser: RF Signed [facility]04-28-2025 History and physical note [facility] Medical Records Department [address] [place] [address] History & Physical Exam 02/13/25 1118 MR#: [id number] Acct: [id number] Name: BECKY HUFFMAN Rep #:[id number] : 1970 54 From: Carlos Harrington DO PCP: ELIZABETH Garcia Status:REG S DC Location: [place] [address] HPI - General General Date of Admission: 02/13/25 Date of Service: 02/13/25 Chief Complaint: Lower GI bleeding HPI Narrative BECKY HUFFMAN, is a 54 F who presents for the evaluation of lower GI bleeding. PMHx of breast cancer and RA [facility] Admission 2..-3.5.35 with septic wrist and bilateral shoulders. Underwent surgical drainageand IV antibiotics. [facility] ED 3. with fatigue and weakness. Work up revealing low Hgb 8.5 Pt here today for evaluation and to be scheduled for a colonoscopy. Pt has not had any further rectal bleeding since her last ED visit. She notes her hgb has trended upward since then and her PCP believes the low hemoglobin to be related to her chronic illnesses. She is no longer feeling fatigued or weak and thinks this was related to having influenza A. Her last colonoscopy was in [address] Elias with recommendation for repeat in 5 years so she is due at this time. [facility] Medical History History of echocardiogram Wears glasses Post-menopausal Cancer Low iron History of GI bleed Non-smoker BRCA gene positive Breast cancer metastasized to axillary lymph node Breast cancer, right breast Rheumatoid arthritis Home Medications ?Medication ?Instructions ?Recorded ?Last Taken ?Type multivitamin 1 tab PO DAILY general healt h 11/29/18 01/12/25 History anastrozole 1 mg tablet 1 mg PO DAILY arthritis 09/1901/12/25 History ferrous sulfate 325 mg (65 mg 325 mg PO MOWEFR anemia 10/13/19 01/13/25 History iron) tablet calcium 500 mg (as 1 ea PO BID def. 02/21/20 History carbonate)-vitamin D3 15 mcg (600 unit) tablet certolizumab pegol 400 mg/2 mL 200 mg subcut Q2W arthr itis 12/31/20 01/05/25 History (200 mg/mL x2) subcutaneous syringe kit (Cimzia) hydroxychloroquine 200 mg tablet 200 mg PO QHS arthrit is 07/09/21 01/12/25 History leflunomide 20 mg tablet 20 mg PO DAILY arthritis 01/12/25 History acetaminophen 500 mg tablet 1,000 mg PO Q8H PRN pain 0 01/13/25 Unknown History ascorbic acid (vitamin C) 500 mg 500 mg PO MOWEFR 01/18 02/10 Unknown History tablet (Vitamin C) Allergy/AdvReac Type Severity Reaction Status Date / Time No Known Allergies Allergy Verified 02/09/25 10:59 Family History Son Diabetes Grandfather Heart disease Mother Cancer possible throat cancer (Went through radiation) Father Cancer lung Surgical History History of thoracentesis History of incision and drainage S/P bilateral salpingo-oophorectomy S/P breast reconstruction S/P bilateral mastectomy Status post right breast lumpectomy (~12/2018) History of tonsillectomy Social History household members: none housing: apartment current occupational status: employed Smoking Status: Never smoker alcohol intake: current alcohol intake frequency: holidays/special occasions only substance use type: does not use caffeine: Yes what type of physical activity do you participate in: walking and aerobics frequency: 5-6 times per week seatbelt use: always do you feel safe at home: Yes additional social history: Patient works at [employer] Constitutional Constitutional: Denies fatigue, fever(s), poor appetite, weight gain or weight loss Gastrointestinal Gastrointestinal: Denies belching, bloating, change in bowel habits, change in stool character, chewing difficulty, coffee ground emesis, constipation, cramping, diarrhea, dyspepsia, dysphagia, earlysatiety, excessive flatus, fecalincontinence, heartburn, hematemesis, hematochezia, hemorrhoids, loose stools, melena, nausea, odynophagia, rectal bleeding, tenesmus, vomiting or weight changes Vital Signs Vital Signs Vital Signs: 02/13/25 11:10 Temperature 98 F Temperature Source Temporal Pulse Rate 117 H Respiratory Rate 16 Blood Pressure 98/81 H Blood Pressure Mean 86 Blood Pressure Source Monitor Blood Pressure Position Sitting Blood Pressure Location Left Arm Pulse Ox 98 Oxygen Delivery Method Room Air Weight Weight: 127 lb 13.89 oz Body Mass Index (BMI) 21.2 Physical Exam Const alert, oriented x3, no apparent distress and healthy appearing General Appearance: cooperative GI normal to inspection, nondistended, normoactive bowel sounds, soft to palpation,non-tender and non-distended Percussion: normal to percussion Rectal Exam: deferred Assessment & Plan Assessment/Plan (1) Blood in stool: (2) Rectal bleeding: PLAN: Assessment and Plan Assessment and Plan (1) Blood in stool: Status: Acute Plan: This is a 54 yo female pt here today for evaluation of anemia and blood in her stool. Pt with PMHx of breast cancer. Pt was recently hospitalized with three septic joints and underwent surgical drainage and IV antibiotics. Following this, She was diagnosed with flu A and found to have a low hemoglobin. SHe does endorse one 4 day episode of BRBPR but has not had anything since. She notes herhgb has increased since the ED. She is due for a screening colonoscopy so she will be scheduled for this today. -Colonoscopy -f/y after procuedre 02/13/25 1120 Cosigner Signature (if applicable): CC: ELIZABETH Ireland; Carlos Friend, ~ Signed [facility]04-28-2025 [facility] Medical Records Department [address] [place] [address] History Physical Exam 02/13/25 1118 MR#: [id number] Acct: [id number] Name: BECKY HUFFMAN Rep #: [id number] : 1970 54 From: Carlos Harrington DO PCP: ELIZABETH Garcia Status:[place] [facility] [place]: [place] [address] HPI - General General Date of Admission: 02/13/25 Date of Service: 02/13/25 Chief Complaint: Lower GI bleeding HPI Narrative BECKY HUFFMAN, is a 54 F who presents for the evaluation of lower GI bleeding. PMHx of breast cancer and RA [facility] Admission 2.-3.5.35 with septic wrist and bilateral shoulders. Underwent surgical drainage and IV antibiotics. [facility] ED 01.13.25 with fatigue and weakness. Work up revealing low Hgb 8.5 Pt here today for evaluation and to be scheduled for a colonoscopy. Pt has not had any further rectal bleeding since her last ED visit. She notes her hgb has trended upward since then and her PCP believes the low hemoglobin to be related to her chronic illnesses. She is no longer feeling fatigued or weak and thinks this was related to having influenza A. Her last colonoscopy was in [address] Elias with recommendation for repeat in 5 years so she is due at this time. [facility] Medical History History of echocardiogram Wears glasses Post-menopausal Cancer Low iron History of GI bleed Non-smoker BRCA gene positive Breast cancer metastasized to axillary lymph node Breast cancer, right breast Rheumatoid arthritis Home Medications ???Medication ???Instructions ???Recorded ???Last Taken ???Type multivitamin 1 tab PO DAILY general health 11/1901/12/25 History anastrozole 1 mg tablet 1 mg PO DAILY arthritis 10/13/19 0 01/12/25 History ferrous sulfate 325 mg (65 mg 325 mg PO MOWEFR anemia 10/13/19 0 01/13/25 History iron) tablet calcium 500 mg (as 1 ea PO BID def. 02/21/20 01/12/25 History carbonate)-vitamin D3 15 mcg (600 unit) tablet certolizumab pegol 400 mg/2 mL 200 mg subcut Q2W arthritis 01/05/25 History (200 mg/mL x2) subcutaneous syringe kit (Cimzia) hydroxychloroquine 200 mg tablet 200 mg PO QHS arthritis 07/09/21 0 01/12/25 History leflunomide 20 mg tablet 20 mg PO DAILY arthritis 12/15/24 01/12/25 History acetaminophen 500 mg tablet 1,000 mg PO Q8H PRN pain 01/13/25 Unknown History ascorbic acid (vitamin C) 500 mg 500 mg PO MOWEFR 02/09/25 Unknown History tablet (Vitamin C) Allergy/AdvReac Type Severity Reaction Status Date / Time No Known Allergies Allergy Verified 02/09/25 10:59 Family History Son Diabetes Grandfather Heart disease Mother Cancer possible throat cancer (Went through radiation) Father Cancer lung Surgical History History of thoracentesis History of incision and drainage S/P bilateral salpingo-oophorectomy S/P breast reconstruction S/P bilateral mastectomy Status post right breast lumpectomy ( 12/2018) History of tonsillectomy Social History household members: none housing: apartment current occupational status: employed Smoking Status: Never smoker alcohol intake: current alcohol intake frequency: holidays/special occasions only substance use type: does not use caffeine: Yes what type of physical activity do you participate in: walking and aerobics frequency: 5-6 times per week seatbelt use: always do you feel safe at home: Yes additional social history: Patient works at [employer], [employer] Constitutional Constitutional: Denies fatigue, fever(s), poor appetite, weight gain or weight loss Gastrointestinal Gastrointestinal: Denies belching, bloating, change in bowel habits, change in stool character, chewing difficulty, coffee ground emesis, constipation, cramping, diarrhea, dyspepsia, dysphagia, early satiety, excessive flatus, fecal incontinence, heartburn, hematemesis, hematochezia, hemorrhoids, loose stools, melena, nausea, odynophagia, rectal bleeding, tenesmus, vomiting or weight changes Vital Signs Vital Signs Vital Signs: 02/13/25 11:10 Temperature 98 F Temperature Source Temporal Pulse Rate 117 H Respiratory Rate 16 Blood Pressure 98/81 H Blood Pressure Mean 86 Blood Pressure Source Monitor Blood Pressure Position Sitting Blood Pressure Location Left Arm Pulse Ox 98 Oxygen Delivery Method Room Air Weight Weight: 127 lb 13.89 oz Body Mass Index (BMI) 21.2 Physical Exam Const alert, oriented x3, no apparent distress and healthy appearing General Appearance: cooperative GI normal to inspection, nondistend (more content not included)...[facility]04-28-2025 Consult note [facility] Medical Records Department [address] [place] [address] Pre-Anesthesia Evaluation 02/13/25 1053 MR#: [id number] Acct: [id number] Name: BECKY HUFFMAN Rep #:[id number] : 1970 54 From: Dewayne Parr MD PCP: ELIZABETH Garcia Status:REG S DC Y Race: C Location: [place] [address] ASA Classification* ASA Classification ASA Classification: 2 Assessment & Plan Anesthesia* Anesthesia Assessment Anesthesia Assessment: Discussed sedation and/or anesthesia options, risks, benefits, and alternatives with patient/parents/legal guardian/POA. Questions invited. The patient/parents/legal guardian/POA seems to understand and agrees to proceedwith anesthesia plan. Reviewed the physical assessment, medical history, allergy history and patient home medications list prior to surgery/procedure/anesthetic and documented any changes. Performed airway and anesthesia risk assessments. Anesthesia Type Anesthesia Type: MAC Anesthesia Focused Assessment* Airway Assessment Mouth opens: >3 cm Mallampati Score: II Focused Labs Anesthesia Preop lab: CBC WBC 13.5 K/mm3 (4.4-11.0) H 01/13/25 12: 5 RBC 2.85 M/mm3 (4.2-5.4) L 01/13/25 12:01/13/25 Hgb 8.5 g/dL (12.0-15.0) L 01/13/25 12:01/13/25 Hct 26.2 % (37-47) L 01/13/25 12:21 01/13/25 Plt Count 466 K/mm3 (150-450) H 01/13/25 12:01/13/25 CHEMISTRY Potassium 4.0 mmol/L (3.3-5.1) 01/13/25 12:21 01/13/25 Sodium 137 mmol/L (133-145) 01/13/25 12:21 01/13/25 Magnesium 1.8 mg/dL (1.5-2.2) 12/15/24 20:13 12/15/24 Phosphorus 2.4 mg/dL (2.7-4.5) L 12/17/24 05:44 12/17/24 BUN 10 mg/dL (4-19) 01/13/25 12:21 01/13/25 Creatinine 0.52 mg/dL (0.70-1.20) L 01/13/25 12:21 Glucose 97 mg/dL (70-99) 01/13/25 12:21 01/13/25 POC Glucose 108 mg/dL (74-106) H 01/13/25 11:21 01/13/25 TSH 1.340 uIU/mL (0.300-4.200) 12/16/24 07:03 11/20 06/12 COAG PT 15.2 SECONDS (11.7-14.9) H 01/13/25 12:21 12/18 06/12 Pre-Assessment Diagnosis/Proposed Procedure Planned Operative Procedure(s): COLONOSCOPY AND EGD Anesthesia History 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 When Was Last Pacemaker Check QUESTION #4 FULL TEXT: You/Your Family Experience fever (hyperthermia) with Anesthesia Last Oral Intake Last Oral intake: Last Oral Intake NPO since Meds taken in AM with sips of water? Meds patient instructed to take am of surgery PONV PONV - marketing engineer: PONV - marketing engineer Female Yes 02/09/25 11:04 HX of Motion Sickness No 02/09/25 11:04 HX of N/V After Surgery No 02/09/25 11:04 Non-Smoker Yes 02/09/25 11:04 Duration of Surgery greater No 02/09/25 11:04 than 60 minutes Number of Risk Factors 2 02/09/25 11:04 PONV Score Moderate Risk 02/09/25 11:04 Height & Weight Height & Weight: Anesthesia: Height & Weight Height 5 ft 6 in 01/13/25 10:49 Respiratory Assessment Respiratory Assessment - marketing engineer: Respiratory Tract Infection Hx - marketing engineer Hx Respiratory Tract Infection No 02/09/25 11:04 STOP Sleep Apnea STOP Sleep Apnea - marketing engineer: STOP Sleep Apnea - marketing engineer Hx Hypertension No 02/09/25 11:04 Hx Sleep Apnea No 02/09/25 11:04 CPAP BIPAP Do you snore loudly (louder No 02/09/25 11:04 than talking or can be heard Do you often feel tired/ No 02/09/25 11:04 fatigued/ sleepy during daytime? Has anyone observed you stop No 02/09/25 11:04 breathing during sleep? STOP Results Negative 02/09/25 11:04 QUESTION #5 FULL TEXT : Do you snore loudly (louder than talking or can be heard through closeddoors)? 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 Specify any problems Hx of Preganancy in last 3 No 02/09/25 11:04 Months Nurse Filling Out Transfusion [facility] 02/09/25 11:04 & Questions: Date: 02/09/25 02/09/25 11:04 Time: 11:14 02/09/25 11:04 Patient unable to answer at this time (ie. confused, unrespo /Reproduction History /Reproductive History - marketing engineer: /Reproductive Hx- marketing engineer Hx Now No 02/09/25 11:04 Gestational Age (in weeks): EDC: Hx Hx Para Hx Section SAB No 02/09/25 11:04 Active Medications Active Medications: Current Medications Generic Name Dose Route Start Last Admin Trade Name Freq PRN Reason Stop Dose Admin Lactated Ringer's 1,000 mls @ 15 mls/hr 02/13/25 11:00 IV .Q48H [facility] PFSH Medical History History of echocardiogram Wears glasses Post-menopausal Cancer Low iron History of GI bleed Non-smoker BRCA gene positive Breast cancer metastasized to axillary lymph node Breast cancer, right breast Rheumatoid arthritis Home Medications ?Medication ?Instructions ?Recorded ?Last Taken ?Type multivitamin 1 tab PO DAILY general healt h 11/29/18 01/12/25 History anastrozole 1 mg tablet 1 mg PO DAILY arthritis 09/1901/12/25 History ferrous sulfate 325 mg (65 mg 325 mg PO MOWEFR anemia 10/13/19 01/13/25 History iron) tablet calcium 500 mg (as 1 ea PO BID def. 02/21/20 History carbonate)-vitamin D3 15 mcg (600 unit) tablet certolizumab pegol 400 mg/2 mL 200 mg subcut Q2W arthr itis 12/31/20 01/05/25 History (200 mg/mL x2) subcutaneous syringe kit (Cimzia) hydroxychloroquine 200 mg tablet 200 mg PO QHS arthrit is 07/09/21 01/12/25 History leflunomide 20 mg tablet 20 mg PO DAILY arthritis 01/12/25 History acetaminophen 500 mg tablet 1,000 mg PO Q8H PRN pain 0 01/13/25 Unknown History ascorbic acid (vitamin C) 500 mg 500 mg PO MOWEFR 01/18 02/10 Unknown History tablet (Vitamin C) Allergy/AdvReac Type Severity Reaction Status Date / Time No Known Allergies Allergy Verified 02/09/25 10:59 Family History Son Diabetes Grandfather Heart disease Mother Cancer possible throat cancer (Went through radiation) Father Cancer lung Surgical History History of thoracentesis History of incision and drainage S/P bilateral salpingo-oophorectomy S/P breast reconstruction S/P bilateral mastectomy Status post right breast lumpectomy (~12/2018) History of tonsillectomy Social History household members: none housing: apartment current occupational status: employed Smoking Status: Never smoker alcohol intake: current alcohol intake frequency: holidays/special occasions only substance use type: does not use caffeine: Yes what type of physical activity do you participate in: walking and aerobics frequency: 5-6 times per week seatbelt use: always do you feel safe at home: Yes additional social history: Patient works at [employer], [employer] home Review of Systems (Anesthesia) ROS Narrative System reviewed and no additional complaints, except as documented. 02/13/25 1053 > Date _ Dewayne Parr MD Cosigner Signature: Date CC: ~ Signed [facility]2025 NoteHNO ID: [id number] Author: SANDRITA PRICE PA-C Service: Radiology Author Type: Physician Tray Casting Machine Operator Type: Plan of Care Filed: 02/10/2025 14:35 Note Text: Interventional Radiology Patient presented for RIGHT thoracentesis . There was insufficient amount of fluid for drainage. Trace pleural effusion with numerous loculations. Procedure not performed. US images saved. Sandrita Price PA-C February 10, 2025 2:34 PMCh[facility] [id number] History of Present illness Narrative* Reef Gunnar Sequeira RT(R) - 02/07/2025 11:20 AM EDT Radiology Service Progress Note DATE OF SERVICE: February 07, 2025 TIME: 3:57 PM PATIENT IDENTITY VERIFICATION COMPLETED USING TWO (2) STANDARD IDENTIFIERS: Name and Date of confirmed by patient verbally. FALL SCREENING: Has the patient had 2 falls in the last year or 1 fall with injury or currently using an Ambulatory Assistive Device (Walker, Cane, Wheelchair, Crutches, etc.)? No PATIENT GENDER DATA: Assigned female at . status: : No status:NO. PATIENT RELEVANT IMPLANT DATA REVIEWED: Yes PATIENT PRESENTS WITH AN IMPLANTABLE OR ATTACHED ANNEALER HELPER: No ALLERGIES: Reviewed and unchanged CONTRAST ALLERGY: NO. EXAM: CT -CONTRAST INDUCED NEPHROPATHY RISK FACTORS: Not applicable CREATININE: Creatinine Date Value Ref Range Status 01/10/2025 0.57 (L) 0.58 - 0.96 mg/dL Final 12/15/2024 0.99 (H) 0.58 - 0.96 mg/dL Final 05/05/2024 0.64 0.58 - 0.96 mg/dL Final Estimated Glomerular Filtration Rate Date Value Ref Range Status 01/10/2025 107 >=60 mL/min/1.73m Final Comment: Estimated Glomerular Filtration Rate (eGFR) is calculated using the 2020 CKD-EPI creatinine equation. This equation utilizes serum creatinine, sex, and age as parameters. The creatinine assay has traceable calibration to isotope dilution- mass spectrometry. Refer to KDIGO guidelines for clinical interpretation. In patients with unstable renal function, e.g. those with acute kidney injury, the eGFRmay not accurately reflect actual GFR. eGFR- Date Value Ref Range Status 07/13/2020 >60 Final P.O.C.T. RESULTS: POC done: Yes, See Lab Tab February 07, 2025 TREATMENT: N/A PERIPHERAL IV DATA: Ambulatory: A peripheral IV was started in the Left antecubital site with a Angio cath: 22 gauge. RADIOLOGY DEPARTMENT: CT; Exam(s) Completed: Chest Abdomen Pelvis SIGNATURE: RT Bob(R) PATIENT NAME: Becky Huffman DATE: February 07, 2025 TIME: 3:57 PM documented in this encounterOhio[facility] NoteHNO ID: [id number] Author: GUNNAR ANN RT(R) Service: ? Author Type: [place] Type: Progress Notes Filed: 02/07/2025 15:57 Note Text: Radiology Service Progress Note DATE OF SERVICE: February 07, 2025 TIME: 3:57 PM PATIENT IDENTITY VERIFICATION COMPLETED USING TWO (2) STANDARD IDENTIFIERS: Name and Date of confirmed by patient verbally. FALL SCREENING: Has the patient had 2 falls in the last year or 1 fall with injury or currently using an Ambulatory Assistive Device (Walker, Cane, Wheelchair, Crutches, etc.)? No PATIENT GENDER DATA: Assigned female at . status: : No status: NO. PATIENT RELEVANT IMPLANT DATA REVIEWED: Yes PATIENT PRESENTS WITH AN IMPLANTABLE OR ATTACHED ANNEALER HELPER: No ALLERGIES: Reviewed and unchanged CONTRAST ALLERGY: NO. EXAM: CT -CONTRAST INDUCED NEPHROPATHY RISK FACTORS: Not applicable CREATININE: Creatinine Date Value Ref Range Status 01/10/2025 0.57 (L) 0.58 - 0.96 mg/dL Final 12/15/2024 0.99 (H) 0.58 - 0.96 mg/dL Final 05/05/2024 0.64 0.58 - 0.96 mg/dL Final Estimated Glomerular Filtration Rate Date Value Ref Range Status 01/10/2025 107 >=60 mL/min/1.73m? Final Comment: Estimated Glomerular Filtration Rate (eGFR) is calculated using the 2020 CKD-EPI creatinine equation. This equation utilizes serum creatinine, sex, and age as parameters. The creatinine assay has traceable calibration to isotope dilution-mass spectrometry. Refer to KDIGO guidelines for clinical interpretation. In patients with unstable renal function, e.g. those with acute kidney injury, the eGFR may not accurately reflect actual GFR. eGFR- Date Value Ref Range Status 07/13/2020 >60 Final P.O.C.T. RESULTS: POC done: Yes, See Lab Tab February 07, 2025 TREATMENT: N/A PERIPHERAL IV DATA: Ambulatory: A peripheral IV was started in the Left antecubital site with a Angio cath: 22 gauge. RADIOLOGY DEPARTMENT: CT; Exam(s) Completed: Chest Abdomen Pelvis SIGNATURE: RT Bob(R) PATIENT NAME: Becky Huffman DATE: February 07, 2025 TIME: 3:57 [facility]04-18-2025 Telephone encounter Note* Telephone Encounter - Becky Ireland APRN.CNP - 02/03/2025 4:23 PM EDT Return call to patient. Discussed with patient that I reviewed case with substance abuse nurse and reviewed recent CT. Recommends image guided thoracentesis. Patient is agreeable to plan. Orders for labs/fluids placed by pulmonology. Procedure order placed. Phone call to [facility]. They will call to schedule patient. Becky Ireland APRN.CNP [facility]04-18-2025 Miscellaneous Notes* Telephone Encounter - Becky Ireland APRN.CNP - 02/03/2025 4:23 PM EDT Return call to patient. Discussed with patient that I reviewed case with substance abuse nurse and reviewed recent CT. Recommends image guided thoracentesis. Patient is agreeable to plan. Orders for labs/fluids placed by pulmonology. Procedure order placed. Phone call to [facility]. They will call to schedule patient. Becky Ireland APRN.CNP * Telephone Encounter - Benita Carrera RN - 02/03/2025 4:08 PM EDT Patient returned call. Provider not available at this moment. Informed patient that provider would call her back. [phone] Benita Carrera RN * Telephone Encounter - Becky Ireland APRN.CNP - 02/03/2025 3:35 PM EDT Phone call to patient and message left to return call. Provider would like to talk with patient. Please get return phone number if provider is not available at time of return call. Becky Ireland APRN.RAY documented in this encounterOhiohealth [facility]04-18-2025 Evaluation note* Diagnosis Onset Date Resolution Status Admit Date Blood in stool acute January 2:09pm Blood in stool acute January 10:37am Rectal bleeding acute January 10:37am BRCA gene positive acute April 192024 2:32pm Immunosuppressed status acute J enoch2024 2:32pm Rheumatoid arthritis chronic May 08, 2025 2:32pm Encounter for routine gynecological examination noneactive April 192024 2:32pm [employer] Phone: 1(553) 778-548704-18-2025 Telephone encounter Note* Telephone Encounter - Benita Carrera RN - 02/03/2025 4:08 PM EDT Patient returned call. Provider not available at this moment. Informed patient that provider would call her back. [phone] Benita Carrera RN [facility]04-18-2025 Telephone encounter Note* Telephone Encounter - Becky Ireland APRN.CNP - 02/03/2025 3:35 PM EDT Phone call to patient and message left to return call. Provider would like to talk with patient. Please get return phone number if provider is not available at time of return call. Becky Ireland APRN.RAY [facility]04-16-2025 History of Present illness Narrative* Jose Herrera, VENESSA - 02/01/2025 4:00 PM EDT Radiology Service Progress Note DATE OF SERVICE: February 01, 2025 TIME: 3:57 PM PATIENT IDENTITY VERIFICATION COMPLETED USING TWO (2) STANDARD IDENTIFIERS: Name and Date of confirmed by patient verbally. FALL SCREENING: Has the patient had 2 falls in the last year or 1 fall with injury or currently using an Ambulatory Assistive Device (Walker, Cane, Wheelchair, Crutches, etc.)? No PATIENT GENDER DATA: Assigned female at . status: : No status:NO. PATIENT RELEVANT IMPLANT DATA REVIEWED: Not Applicable PATIENT PRESENTS WITH AN IMPLANTABLE OR ATTACHED ANNEALER HELPER: No ALLERGIES: Reviewed and unchanged CONTRAST ALLERGY: NO. EXAM: CT -CONTRAST INDUCED NEPHROPATHY RISK FACTORS: Not applicable CREATININE: Creatinine Date Value Ref Range Status 01/10/2025 0.57 (L) 0.58 - 0.96 mg/dL Final 12/15/2024 0.99 (H) 0.58 - 0.96 mg/dL Final 05/05/2024 0.64 0.58 - 0.96 mg/dL Final Estimated Glomerular Filtration Rate Date Value Ref Range Status 01/10/2025 107 >=60 mL/min/1.73m Final Comment: Estimated Glomerular Filtration Rate (eGFR) is calculated using the 2020 CKD-EPI creatinine equation. This equation utilizes serum creatinine, sex, and age as parameters. The creatinine assay has traceable calibration to isotope dilution- mass spectrometry. Refer to KDIGO guidelines for clinical interpretation. In patients with unstable renal function, e.g. those with acute kidney injury, the eGFRmay not accurately reflect actual GFR. eGFR- Date Value Ref Range Status 07/13/2020 >60 Final P.O.C.T. RESULTS: N/A February 01, 2025 TREATMENT: N/A PERIPHERAL IV DATA: Ambulatory: A peripheral IV was started in the Left upper extremity antecubitalsite with a Angio cath: 20 gauge. RADIOLOGY DEPARTMENT: CT; Exam(s) Completed: PE Study SIGNATURE: VENESSA Best PATIENT NAME: Becky Huffman DATE: February 01, 2025 TIME: 3:57 PM documented in this encounterOhiohealth [facility]25 NoteHNO ID: [id number] Author: JOSE HERRERA CT Service: Radiology Author Type: Technologist Type: Progress Notes Filed: 02/01/2025 15:58 Note Text: Radiology Service Progress Note DATE OF SERVICE: February 01, 2025 TIME: 3:57 PM PATIENT IDENTITY VERIFICATION COMPLETED USING TWO (2) STANDARD IDENTIFIERS: Name and Date of confirmed by patient verbally. FALL SCREENING: Has the patient had 2 falls in the last year or 1 fall with injury or currently using an Ambulatory Assistive Device (Walker, Cane, Wheelchair, Crutches, etc.)? No PATIENT GENDER DATA: Assigned female at . status: : No status: NO. PATIENT RELEVANT IMPLANT DATA REVIEWED: Not Applicable PATIENT PRESENTS WITH AN IMPLANTABLE OR ATTACHED ANNEALER HELPER: No ALLERGIES: Reviewed and unchanged CONTRAST ALLERGY: NO. EXAM: CT -CONTRAST INDUCED NEPHROPATHY RISK FACTORS: Not applicable CREATININE: Creatinine Date Value Ref Range Status 01/10/2025 0.57 (L) 0.58 - 0.96 mg/dL Final 12/15/2024 0.99 (H) 0.58 - 0.96 mg/dL Final 05/05/2024 0.64 0.58 - 0.96 mg/dL Final Estimated Glomerular Filtration Rate Date Value Ref Range Status 01/10/2025 107 >=60 mL/min/1.73m? Final Comment: Estimated Glomerular Filtration Rate (eGFR) is calculated using the 2020 CKD-EPI creatinine equation. This equation utilizes serum creatinine, sex, and age as parameters. The creatinine assay has traceable calibration to isotope dilution-mass spectrometry. Refer to KDIGO guidelines for clinical interpretation. In patients with unstable renal function, e.g. those with acute kidney injury, the eGFR may not accurately reflect actual GFR. eGFR- Date Value Ref Range Status 07/13/2020 >60 Final P.O.C.T. RESULTS: N/A February 01, 2025 TREATMENT: N/A PERIPHERAL IV DATA: Ambulatory: A peripheral IV was started in the Left upper extremity antecubital site with a Angio cath: 20 gauge. RADIOLOGY DEPARTMENT: CT; Exam(s) Completed: PE Study SIGNATURE: VENESSA Best PATIENT NAME: Becky Huffman DATE: February 01, 2025 TIME: 3:57 [facility]04-15-2025 NoteHNO ID: [id number] Author: BECKY IRELAND APRN.RAY Service: ? Author Type: Nurse Practitioner Type: Progress Notes Filed: 01/31/2025 18:08 Note Text: This is a 54 year old female who presents today with: Becky is a 54-year-old female with a history of anemia, presenting for evaluation of elevated inflammatory markers and dyspnea. HISTORY OF PRESENT ILLNESS: Elevated Inflammatory Markers: - Recent lab work showed elevated inflammatory markers. - rheumatology put biologics back on hold. - Scheduled to see Merrill from Dr. Harrington's office on Thursday to r/o bleed. Anemia: - Recent lab work showed hemoglobin level of 9.2. - Did follow-up w/ hematology and iron changed to every other day dosing. - Taking iron supplements on Thursday, Thursday, and Thursday. Dyspnea: - Reports feeling winded after walking up two flights of stairs, which is a new symptom. - Denies palpitations. Continue to have a cough. Continues to have a catch when taking deep breaths. Some soreness on the right. Pleural Effusion: - Reports feeling a little catch when taking a deep breath. - Reports soreness where the fluid is located when coughing. - Experiences a tickle in the throat that does not bring anything up. Has upcoming appt with pulmonology. PAST MEDICAL HISTORY: PAST MEDICAL HISTORY Diagnosis Date Breast cancer (HCC) 2019 PMH - PAST MEDICAL HISTORY OF FATIGUE PMH - PAST MEDICAL HISTORY OF achy joints Premenstrual tension syndromes PMS Rheumatoid arthritis involving multiple sites ([facility]) 05/20/2021 Rheumatoid arthritis(714.0) PAST SURGICAL HISTORY Procedure Laterality Date COLONOSCOPY, COLORECTAL SCREEN 10/17/2019 Dr. Travis Elias, [facility]; 4mm sessile polyp in proximal sigmoid colon, many diverticula in sigmoid colon, repeat in 5yr's MASTECTOMY HX Bilateral 2019 with tissue flap reconstruction PAST SURGICAL HISTORY OF Right 12/28/2018 lumpectomy PROVIDE CHEMOTHERAPY AGENT 2019 RADIATION THERAPY 2019 REMOVAL OF OVARY(S) Bilateral 02/2020 SALPINGECTOMY Bilateral 02/2020 TONSILLECTOMY PRIMARY/SECONDARY Tonsillectomy ALLERGIES Patient has no known allergies. MEDICATIONS Current Outpatient Medications Medication Sig iv contrast (will be provided with radiology test) CT Chest PE -Inject, intravenously, once for 1 dose.No IV access, insert saline lock prior to the beginning of sedation, infusion, injection of imaging exam. Discontinue saline lock post exam. If Pt. has a central line or IVAD, may access for administration according to line specific nursing protocol. Once exam is complete flush line and de-access according to line specific nursing protocol in the CT contrast administration guidelines link. ascorbic acid, vitamin C, (VITAMIN C) 500 mg tablet Take 1 tablet by mouth every Thursday, Thursday, and Thursday. anastrozole (ARIMIDEX) 1 mg tablet Take 1 tablet by mouth once daily. hydrOXYchloroQUINE (PLAQUENIL) 200 mg tablet Take 200 mg by mouth once daily. cholecalciferol, vitamin D3, (VITAMIN D3 ORAL) Take 2,000 Units by mouth once daily. certolizumab pegol (CIMZIA SUBCUTANEOUS) Inject 200 mg subcutaneously. Twice a month calcium carbonate/vitamin D3 (CALCIUM 600 + D ORAL) Take 1 tablet by mouth once daily. leflunomide (ARAVA) 20 mg tablet Take 20 mg by mouth once daily. ferrous sulfate 325 mg (65 mg iron) tablet Take 325 mg by mouth once daily. DAILY MULTIVITAMIN TAB Take 1 tablet by mouth once daily. No current facility-administered medications for this visit. FAMILY HISTORY Problem Relation Age of Onset Cancer Mother throat - radiation Cancer Father LUNG Hypertension Brother Diabetes Brother type 2 Hypertension Brother other (CHF) Maternal Grandfather Hypertension Paternal Grandfather Heart Paternal Grandfather No Known Problems Daughter Diabetes Son Type 1 Cancer Other Cancer Other Social History Tobacco Use Smoking status: Never Smokeless tobacco: Never Vaping Use Vaping status: Never Used Substance Use Topics Alcohol use: No Drug use: No EXAM: BP 116/78 Pulse 109 Resp 16 LMP 12/04/2016 SpO2 98% PHYSICAL EXAM: General Appearance: Well appearing, alert, in no acute distress, well-hydrated, well nourished.. Skin: Skin color, texture, turgor normal, no suspicious rashes or lesions. Head: Normocephalic, no masses, lesions, tenderness or abnormalities. Eyes: Anicteric sclera. Extraocular movements are intact. . Lungs: Lungs clear to auscultation. No wheezing, rhonchi, rales. Decreased right base. Heart: RRR without murmur, gallop, or rubs. No ectopy. Extremities: No deformities, edema, skin discoloration, clubbing or cyanosis. Good capillary refill. . Neurologic: Gait normal. ASSESSMENT/PLAN 1. SOB (shortness of breath) (R06.02) 2. Tachycardia (R00.0) 3. Pleural effusion (J90) - Dyspnea and tachycardia noted; pleural effusion present. - Ordered CT scan to rule out pulmona (more content not included)...[facility]04-15-2025 History of Present illness Narrative* Becky IrelandGEMMA.ATMOSPHERIC CHEMIST - 01/31/2025 5:57 PM EDT This is a 54 year old female who presents today with: Becky is a 54-year-old female with a history of anemia, presenting for evaluation of elevated inflammatory markers and dyspnea. HISTORY OF PRESENT ILLNESS: Elevated Inflammatory Markers: - Recent lab work showed elevated inflammatory markers. - rheumatology put biologics back on hold. - Scheduled to see Merrill from Dr. Harrington's office on Thursday to r/o bleed. Anemia: - Recent lab work showed hemoglobin level of 9.2. - Did follow-up w/ hematology and iron changed to every other day dosing. - Taking iron supplements on Thursday, Thursday, and Thursday. Dyspnea: - Reports feeling winded after walking up two flights of stairs, which is a new symptom. - Denies palpitations. Continue to have a cough. Continues to have a catch when taking deep breaths. Some soreness on the right. Pleural Effusion: - Reports feeling a little catch when taking a deep breath. - Reports soreness where the fluid is located when coughing. - Experiences a tickle in the throat that does not bring anything up. Has upcoming appt with pulmonology. PAST MEDICAL HISTORY: PAST MEDICAL HISTORY Diagnosis Date Breast cancer (HCC) 2019 PMH - PAST MEDICAL HISTORY OF FATIGUE PMH - PAST MEDICAL HISTORY OF achy joints Premenstrual tension syndromes PMS Rheumatoid arthritis involving multiple sites ([facility]) 05/20/2021 Rheumatoid arthritis(714.0) PAST SURGICAL HISTORY Procedure Laterality Date COLONOSCOPY, COLORECTAL SCREEN 10/17/2019 Dr. Travis Elias, [facility]; 4mm sessile polyp in proximal sigmoid colon, many diverticula in sigmoid colon, repeat in 5yr's MASTECTOMY HX Bilateral 2019 with tissue flap reconstruction PAST SURGICAL HISTORY OF Right 12/28/2018 lumpectomy PROVIDE CHEMOTHERAPY AGENT 2019 RADIATION THERAPY 2019 REMOVAL OF OVARY(S) Bilateral 02/2020 SALPINGECTOMY Bilateral 02/2020 TONSILLECTOMY PRIMARY/SECONDARY <AGE 10 Tonsillectomy ALLERGIES Patient has no known allergies. MEDICATIONS Current Outpatient Medications Medication Sig iv contrast (will be provided with radiology test) CT Chest PE -Inject, intravenously, once for 1 dose.No IV access, insert saline lock prior to the beginning of sedation, infusion, injection of imaging exam. Discontinue saline lock post exam. If Pt. has a central line or IVAD, may access for administration according to line specific nursing protocol. Once exam is complete flush line and de-access according to line specific nursing protocol in the CT contrast administration guidelines link. ascorbic acid, vitamin C, (VITAMIN C) 500 mg tablet Take 1 tablet by mouth every Thursday, Thursday,and Thursday. anastrozole (ARIMIDEX) 1 mg tablet Take 1 tablet by mouth once daily. hydrOXYchloroQUINE (PLAQUENIL) 200 mg tablet Take 200 mg by mouth once daily. cholecalciferol, vitamin D3, (VITAMIN D3 ORAL) Take 2,000 Units by mouth once daily. certolizumab pegol (CIMZIA SUBCUTANEOUS) Inject 200 mg subcutaneously. Twice a month calcium carbonate/vitamin D3 (CALCIUM 600 + D ORAL) Take 1 tablet by mouth once daily. leflunomide (ARAVA) 20 mg tablet Take 20 mg by mouth once daily. ferrous sulfate 325 mg (65 mg iron) tablet Take 325 mg by mouth once daily. DAILY MULTIVITAMIN TAB Take 1 tablet by mouth once daily. No current facility-administered medications for this visit. FAMILY HISTORY Problem Relation Age of Onset Cancer Mother throat - radiation Cancer Father LUNG Hypertension Brother Diabetes Brother type 2 Hypertension Brother other (CHF) Maternal Grandfather Hypertension Paternal Grandfather Heart Paternal Grandfather No Known Problems Daughter Diabetes Son Type 1 Cancer Other Cancer Other Social History Tobacco Use Smoking status: Never Smokeless tobacco: Never Vaping Use Vaping status: Never Used Substance Use Topics Alcohol use: No Drug use: No EXAM: BP 116/78 Pulse 109 Resp 16 LMP 12/04/2016 SpO2 98% PHYSICAL EXAM: General Appearance: Well appearing, alert, in no acute distress, well-hydrated, well nourished.. Skin: Skin color, texture, turgor normal, no suspicious rashes or lesions. Head: Normocephalic, no masses, lesions, tenderness or abnormalities. Eyes: Anicteric sclera. Extraocular movements are intact. . Lungs: Lungs clear to auscultation. No wheezing, rhonchi, rales. Decreased right base. Heart: RRR without murmur, gallop, or rubs. No ectopy. Extremities: No deformities, edema, skin discoloration, clubbing or cyanosis. Good capillary refill. . Neurologic: Gait normal. ASSESSMENT/PLAN 1. SOB (shortness of breath) (R06.02) 2. Tachycardia (R00.0) 3. Pleural effusion (J90) - Dyspnea and tachycardia noted; pleural effusion present. - Ordered CT scan to rule out pulmonary embolism; scheduled to be done today if possible. - Echocardiogram scheduled for today - Follow-up with pulmonology. - Discussed case with hematology and in agreement to consider stat CT to r/o PE d/t elevated inflammatory markers, tachycardia, continued cough, anemia, recent bacteremia, pulmonary effusion. 4. Elevated sed rate (R70.0) 5. Elevated C-reactive protein (CRP) (R79.82) - Elevated inflammatory markers noted. - Discussed potential causes, including possible bleeding or infection. - Continue Plaquenil; hold Cimzia and leflunomide as per rheumatology's recommendation. - Discussed case with hematology and rheum and in agreement to consider stat CT to r/o PE d/t elevated inflammatory markers, tachycardia, continued cough, anemia, recent bacteremia, pulmonary effusion. 6. Anemia, unspecified type (D64.9) - Hemoglobin levels slightly improved; recent rheum labs lab showed hgb 9.7 g/dL. - Continue iron supplementation on Thursday, Thursday, Thursday schedule. - keep upcoming appt with GI to eval for possible scopes. Discussed treatment plan and patient voices understanding. Patient's questions answered appropriately. Medications and potential side effects were discussed and patient voices understanding. Return to the office as scheduled or as needed for worsening/no improvement. Becky Ireland APRN.ATMOSPHERIC CHEMIST Recording using ambient [employer] software for draft documentation of the visit was discussed with the patient/authorized lead customer service representative; all questions welcomed and answered. Patient/authorized lead customer service representative agreed to proceed documented in this encounterOhiohealth [facility]04-15-2025 Telephone encounter Note * Telephone Encounter - Becky Ireland APRN.CNP - 01/31/2025 5:53 PM EDT Phone call returned to [facility]. Wanted to ensure we were aware of elevated inflammatory markers. She put biologics back on hold until further eval. [facility]04-15-2025 Miscellaneous Notes* Telephone Encounter - Becky Ireland APRN.CNP - 01/31/2025 5:53 PM EDT Phone call returned to [facility]. Wanted to ensure we were aware of elevated inflammatory markers. She put biologics back on hold until further eval. * Telephone Encounter - Becky Ireland APRN.CNP - 01/30/2025 4:25 PM EDT Attempted phone call. Serenity/Padma is out of the office for the day. Becky Ireland APRN.CNP * Telephone Encounter - Winter Escoto LPN - 01/30/2025 3:23 PM EDT Serenity PIN CHASER from [facility] calling wanted to talk to Becky Ireland about patients labs, Sed rate 85 and CRP is 9.7 she stopped her biologic.She had faxed her lab results to the office. Serenity isavailable until 4 pm. documented in this encounterOhiohealth Arthur [facility]04-15-2025 Telephone encounter Note * Telephone Encounter - Becky Ireland APRN.CNP - 01/31/2025 5:52 PM EDT See other phone encounter -- duplicate. [facility]04-15-2025 Miscellaneous Notes* Telephone Encounter - Becky Ireland APRN.CNP - 01/31/2025 5:52 PM EDT See other phone encounter -- duplicate. * Telephone Encounter - Ca Clement RN - 01/31/2025 8:49 AM EDT Office of Padma Christy calls and is asking provider to call number. Ca Clement RN * Telephone Encounter - Becky Ireland APRN.CNP - 01/30/2025 4:26 PM EDT Attempted return call to provider. Left office for the day. Becky Ireland APRN.CNP * Telephone Encounter - Tj Enciso RN - 01/30/2025 3:24 PM EDT Office of Padma Tee NP Rheumatology [facility] called and reports provider would like to talk to this provider about lab results. They report the phone lines are open until 430. Please call at your convenience. Tj Enciso RN documented in this encounterOhiohealth Arthur [facility]04-15-2025 Instructions* Patient Instructions* Becky Ireland APRN.CNP - 01/31/2025 1:33 PM EDT Continue taking Plaquenil as usual. Take your iron supplement on a Thursday, Thursday, Thursday schedule. Schedule CT scan today. Let us know what happens w/ GI. Recheck in 2 weeks. documented in this encounterOhiohealth Arthur [facility]04-15-2025 Telephone encounter Note * Telephone Encounter - Ca Clement RN - 01/31/2025 8:49 AM EDT Office of Padma Christy calls and is asking provider to call number. Ca Clement RN [facility]04-14-2025 Telephone encounter Note* Telephone Encounter - Becky Ireland APRN.CNP - 01/30/2025 4:26 PM EDT Attempted return call to provider. Left office for the day. Becky Ireland APRN.RAY [facility]04-14-2025 Telephone encounter Note* Telephone Encounter - Becky Ireland APRN.CNP - 01/30/2025 4:25 PM EDT Attempted phone call. Serenity/Padma is out of the office for the day. Becky Ireland APRN.ATMOSPHERIC CHEMIST [facility]04-14-2025 Telephone encounter Note* Telephone Encounter - Tj Enciso RN - 01/30/2025 3:24 PM EDT Office of Padma Tee NP Rheumatology [facility] called and reports provider would like to talk to this provider about lab results. They report the phone lines are open until 430. Please call at your convenience. Tj Enciso RN [facility]04-14-2025 Telephone encounter Note* Telephone Encounter - Winter Escoto LPN - 01/30/2025 3:23 PM EDT Serenity PIN CHASER from [facility] calling wanted to talk to Becky Ireland about patients labs, Sed rate 85 and CRP is 9.7 she stopped her biologic.She had faxed her lab results to the office. Serenity isavailable until 4 pm. [facility]04-[facility] History of Present illness Narrative* Fran Gomez - 01/26/2025 1:00 PM EDT Progress Note Becky Huffman 1970 Encounter date: 01/27/2025 Cancer Staging Malignant neoplasm of central portion of right breast in female, estrogen receptor positive (HCC) Staging form: Breast, AJCC 8th Edition - Pathologic stage from 01/04/2019: Stage IB (pT1c, pN2a, cM0, G2, ER+, AZ+, HER2-) - Signed by Sis Stockton on 01/04/2019 HPI: Becky Huffman is a 54 year old female presenting today for new anemia. 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 ER positive (>95%, moderate), AZ positive (24%, weak), and Her2/izzy 2+ and dual LEIDY negative. s/p adjuvant chemotherapy with AC followed by Taxol. Radiation completed 09/14/19. S/p b/l mastectomy OTILIA at [facility]. On AI since 2018. She is following regularly for surveillance of breast ca with Adelina Luis APRN.ATMOSPHERIC CHEMIST Recent admission to [facility] with septic arthritis following influenza A initally dx 11/23/24. Has been ill since flu a, now recovering. Had to have all joints cleaned out. Feels that she is doing a lot more since discharge, more PT. Feeling around 70% back to baseline. Constant dull ache arms, has beenbetter ROM has improved in the last week. Has been feeling woozy worse the last few weeks prompting her to follow up with PCP. Overall stabletoday. No worsening dizziness. Low BP and tachy, was on lisinopril and amlodipine, however due to hypotension these were discontinued by PCP. Current work up by PCP. Abnormal EKG during admission. Scheduled for ECHO next week. Feels a catch under ribs with deep breath. Pleural effusion noted on recent CTA from admission. She is trying to gain weight back, health healthy well balanced diet. Drinking premier protein drink in the am. Eating iron rich foods.Taking PO iron TID, dicussed that last do not reflect YISEL, but appears to look more like anemia of chronic disease/inflammation with high ferritin, low TIBC. No significant changes in bowel habits. A little more constipation with increase in PO iron, but manageable. She is referred to see Dr Harrington, sister in law works in his office. Last scope Dr Elias 2019. On plaquenil, arava, cimzia. Lots of standing for work. 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 She has not gone back to work yet. Follows with Dr Corral for RA. Multivitamin, vitamin d + calcium, PAST MEDICAL HISTORY Diagnosis Date Breast cancer (HCC) 2019 PMH - PAST MEDICAL HISTORY OF FATIGUE PMH - PAST MEDICAL HISTORY OF achy joints Premenstrual tension syndromes PMS Rheumatoid arthritis involving multiple sites ([facility]) 05/20/2021 Rheumatoid arthritis(714.0) PAST SURGICAL HISTORY Procedure Laterality Date COLONOSCOPY, COLORECTAL SCREEN 10/17/2019 Dr. Travis Elias, [facility]; 4mm sessile polyp in proximal sigmoid colon, many diverticula in sigmoid colon, repeat in 5yr's MASTECTOMY HX Bilateral 2019 with tissue flap reconstruction PAST SURGICAL HISTORY OF Right 12/28/2018 lumpectomy PROVIDE CHEMOTHERAPY AGENT 2019 RADIATION THERAPY 2019 REMOVAL OF OVARY(S) Bilateral 02/2020 SALPINGECTOMY Bilateral 02/2020 TONSILLECTOMY PRIMARY/SECONDARY <AGE 10 Tonsillectomy Current Outpatient Medications Medication Sig Dispense Refill anastrozole (ARIMIDEX) 1 mg tablet Take 1 tablet by mouth once daily. 90 tablet 3 hydrOXYchloroQUINE (PLAQUENIL) 200 mg tablet Take 200 mg by mouth once daily. cholecalciferol, vitamin D3, (VITAMIN D3 ORAL) Take 2,000 Units by mouth once daily. certolizumab pegol (CIMZIA SUBCUTANEOUS) Inject 200 mg subcutaneously. Twice a month calcium carbonate/vitamin D3 (CALCIUM 600 + D ORAL) Take 1 tablet by mouth once daily. leflunomide (ARAVA) 20 mg tablet Take 20 mg by mouth once daily. ferrous sulfate 325 mg (65 mg iron) tablet Take 325 mg by mouth once daily. DAILY MULTIVITAMIN TAB Take 1 tablet by mouth once daily. 0 ascorbic acid, vitamin C, (VITAMIN C) 500 mg tablet Take 1 tablet by mouth every Thursday, Thursday,and Thursday. 90 tablet 0 iv contrast (will be provided with radiology test) CT Chest ABD/PEL-Inject, intravenously, once for1 dose.No IV access, insert saline lock prior to the beginning of sedation, infusion, injection of imaging exam. Discontinue saline lock post exam. If Pt. has a central line or IVAD, may access for administration according to line specific nursing protocol. Once exam is complete flush line and de-access according to line specific nursing protocol in the CT contrast administration guidelines link.1 each 0 enteric contrast (will be provided with radiology test) For CT CHESTABD/PEL W IVCON Routine order Administer, As Directed One Time Only, via Oral, Rectal, both Oral and Rectal, Enteric Tube, Stoma orIndwelling Catheter, Enteric Contrast as designated per enteric contrast guidelines 1 each 0 No current facility-administered medications for this visit. ALLERGIES No Known Allergies FAMILY HISTORY Problem Relation Age of Onset Cancer Mother throat - radiation Cancer Father LUNG Hypertension Brother Diabetes Brother type 2 Hypertension Brother other (CHF) Maternal Grandfather Hypertension Paternal Grandfather Heart Paternal Grandfather No Known Problems Daughter Diabetes Son Type 1 Cancer Other Cancer Other Social History Tobacco Use Smoking status: Never Smokeless tobacco: Never Vaping Use Vaping status: Never Used Substance Use Topics Alcohol use: No Drug use: No Review of Systems: Negative except as noted in HPI reviewed 01/27/2025 Physical Exam: BP 123/82 Pulse 127 Temp 98.4 Wt 134 lb (60.8kg) SpO2 97% LMP 12/04/2016 General: Age-appropriate well developed. Appears well. In no acute distress HEENT: Normocephalic, no sclera icterus, external ears normal, oral cavity clear. Neck: Supple, no thyroid nodules, no JVD. Chest: Clear bilaterally, no wheezes, not labored. Heart: no abnormal sounds, tachy Abdomen: Soft, nontender, nondistended, bowel sounds present, no organomegaly or mass, no rigidity. Extremities: No cyanosis, clubbing, gross deformities, or palpable cords. Neurological: Cranial nerves II through XII are intact bilaterally, strength normal in the upper and lower extremities, no focal deficits. Skin: Warm and dry with no rashes or ulcerations. Nodes: No palpable adenopathy in the cervical, supraclavicular, infraclavicular, or axillary regions. Hematologic: no bruising or petechiae. Psychiatric: Alert and oriented x3. Emotional well-being assessment was performed. Pt denies depression, distress, and or problems with coping or adjustment. Lab Results Component Value Date WBC 12.92 (H) 01/13/2025 HB 9.2 (L) 01/13/2025 MCV 94.3 01/13/2025 PLT 555 (H) 01/13/2025 Lab Results Component Value Date NA 141 01/10/2025 K 3.7 01/10/2025 CO2 23 01/10/2025 BUN 15 01/10/2025 CREAT 0.57 (L) 01/10/2025 TBILI 0.3 01/10/2025 TPROT 7.4 01/10/2025 ALB 3.4 (L) 01/10/2025 ALKPHOS 75 01/10/2025 ALT 10 01/10/2025 AST 27 01/10/2025 Latest Reference Range & Units 01/13/25 09:15 Vitamin B12 232 - 1,245 pg/mL 871 Folate >4.7 ng/mL 18.1 Ferritin 14.7 - 205.1 ng/mL 997.0 (H) Iron 41 - 186 ug/dL 16 (L) TIBC 232 - 386 ug/dL 137 (L) Transferrin Saturation 15.0 - 57.0 % 11.7 (L) (H): Data is abnormally high (L): Data is abnormally low Assessment and Plan: Ms. Huffman is a pleasant 54 year old woman with a hx of breast ca presenting asreferral for new anemia following recent infection. Anemia - appears to be anemia of chronic disease/inflammation, concern for bleeding though occult stool was negative. Pt reports that she did have overt BRBPR a few weeks ago. No clots, no bleeding since. - Ferritin elevated, TIBC low. Reviewed labs with patient today - Hgb has improved from last draw. Up to 9.2 on 01/13/2025 - Unknown etiology at this time ? 2/2 recent sepsis vs bleeding - leukocytosis, thrombocytosis, likely reactive from above. 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 s/p adjuvant AC- Taxol. Radiation completed 09/14/19. S/p b/l mastectomy OTILIA at [facility] - On AI since 2018. - CT C/A/P,to further assess. If effusion persists may want consider thoracentesis with cytology. Follow up pending labs. Fran Gomez APRN.ATMOSPHERIC CHEMIST I spent a total of 60 minutes on the date of the service which included preparing to see the patient, [id number] patient care, completing clinical documentation, obtaining and/or reviewing separately obtained history, performing a medically appropriate examination, and ordering medications, tests, or procedures. Portions of this note including HPI, ROS, impression/plan may have been copied forward as to provide important historical information essential in contributing to medical decision making. Documentation has been reviewed and edited as necessary to support clinical decision making for today's visit and to reflect my own independent evaluation of this patient. documented in this encounterOhiohealth [facility]04-10-2025 NoteHNO ID: [id number] Author: FRAN GOMEZ, ? Service: ? Author Type: Nurse Practitioner Type: Progress Notes Filed: 01/27/2025 14:55 Note Text: Progress Note Becky Huffman 1970 Encounter date: 01/27/2025 Cancer Staging Malignant neoplasm of central portion of right breast in female, estrogen receptor positive (HCC) Staging form: Breast, AJCC 8th Edition - Pathologic stage from 01/04/2019: Stage IB (pT1c, pN2a, cM0, G2, ER+, AZ+, HER2-) - Signed by Sis Stockton on 01/04/2019 HPI: Becky Huffman is a 54 year old female presenting today for new anemia. 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 ER positive (>95%, moderate), AZ positive (24%, weak), and Her2/izzy 2+ and dual LEIDY negative. s/p adjuvant chemotherapy with AC followed by Taxol. Radiation completed 09/14/19. S/p b/l mastectomy OTILIA at [facility]. On AI since 2019. She is following regularly for surveillance of breast ca with Adelina Luis APRN.ATMOSPHERIC CHEMIST Recent admission to [facility] with septic arthritis following influenza A initally dx 11/23/24. Has been ill since flu a, now recovering. Had to have all joints cleaned out. Feels that she is doing a lot more since discharge, more PT. Feeling around 70% back to baseline. Constant dull ache arms, has been better ROM has improved in the last week. Has been feeling woozy worse the last few weeks prompting her to follow up with PCP. Overall stable today. No worsening dizziness. Low BP and tachy, was on lisinopril and amlodipine, however due to hypotension these were discontinued by PCP. Current work up by PCP. Abnormal EKG during admission. Scheduled for ECHO next week. Feels a catch under ribs with deep breath. Pleural effusion noted on recent CTA from admission. She is trying to gain weight back, health healthy well balanced diet. Drinking premier protein drink in the am. Eating iron rich foods.Taking PO iron TID, dicussed that last do not reflect YISEL, but appears to look more like anemia of chronic disease/inflammation with high ferritin, low TIBC. No significant changes in bowel habits. A little more constipation with increase in PO iron, but manageable. She is referred to see Friend, sister in law works in his office. Last scope Dr Elias 2018. On plaquenil, arava, cimzia. Lots of standing for work. 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 She has not gone back to work yet. Follows with Dr Corral for RA. Multivitamin, vitamin d + calcium, PAST MEDICAL HISTORY Diagnosis Date Breast cancer (HCC) 2018 PMH - PAST MEDICAL HISTORY OF FATIGUE PMH - PAST MEDICAL HISTORY OF achy joints Premenstrual tension syndromes PMS Rheumatoid arthritis involving multiple sites (HCC) 05/20/2021 Rheumatoid arthritis(714.0) PAST SURGICAL HISTORY Procedure Laterality Date COLONOSCOPY, COLORECTAL SCREEN 10/17/2019 Dr. Travis Elias, [facility]; 4mm sessile polyp in proximal sigmoid colon, many diverticula in sigmoid colon, repeat in 5yr's MASTECTOMY HX Bilateral 2019 with tissue flap reconstruction PAST SURGICAL HISTORY OF Right 12/28/2018 lumpectomy PROVIDE CHEMOTHERAPY AGENT 2019 RADIATION THERAPY 2019 REMOVAL OF OVARY(S) Bilateral 02/2020 SALPINGECTOMY Bilateral 02/2020 TONSILLECTOMY PRIMARY/SECONDARY Tonsillectomy Current Outpatient Medications Medication Sig Dispense Refill anastrozole (ARIMIDEX) 1 mg tablet Take 1 tablet by mouth once daily. 90 tablet 3 hydrOXYchloroQUINE (PLAQUENIL) 200 mg tablet Take 200 mg by mouth once daily. cholecalciferol, vitamin D3, (VITAMIN D3 ORAL) Take 2,000 Units by mouth once daily. certolizumab pegol (CIMZIA SUBCUTANEOUS) Inject 200 mg subcutaneously. Twice a month calcium carbonate/vitamin D3 (CALCIUM 600 + D ORAL) Take 1 tablet by mouth once daily. leflunomide (ARAVA) 20 mg tablet Take 20 mg by mouth once daily. ferrous sulfate 325 mg (65 mg iron) tablet Take 325 mg by mouth once daily. DAILY MULTIVITAMIN TAB Take 1 tablet by mouth once daily. 0 ascorbic acid, vitamin C, (VITAMIN C) 500 mg tablet Take 1 tablet by mouth every Thursday, Thursday, and Thursday. 90 tablet 0 iv contrast (will be provided with radiology test) CT Chest ABD/PEL-Inject, intravenously, once for 1 dose.No IV access, insert saline lock prior to the beginning of sedation, infusion, injection of imaging exam. Discontinue saline lock post exam. If Pt. has a central line or IVAD, may access for administration according to line specific nursing protocol. Once exam is complete flush line and de-access according to line specific nursing protocol in the CT contrast administration guidelines link. 1 each 0 enteric contrast (will be provided with radiology test) For CT CHESTABD/PEL W IVCON Routine order Administer, As Directed One Time Only, via Oral, Rectal, both Oral and Rectal, Ent (more content not included)...[facility]04-08-2025 Telephone encounter Note* Telephone Encounter - Monisha Gilliam - 01/24/2025 10:22 AM EDT Spoke with patient and scheduled with Fran at 1:00 Monisha Gilliam [facility]04-08-2025 Miscellaneous Notes* Telephone Encounter - Monisha Gilliam - 01/24/2025 10:22 AM EDT Spoke with patient and scheduled with Fran at 1:00 Monisha Gilliam * Telephone Encounter - Shraddha House RN - 01/24/2025 9:37 AM EDT PSS- Per Fran, please make patient a new anemia consult. Would she be able to come in on at 1:00 pm? Schedule for an hour appointment. Shraddha House RN * Telephone Encounter - Becky Ireland APRN.CNP - 01/23/2025 7:09 PM EDT Pt in for recheck. Was in the ER on 01/13 and Hgb - 8.5. Continues with tachycardia and episodes of feeling woozy. She is taking po iron twice daily. Referral to heme-onc for eval of anemia and tx options. documented in this encounterOhiohealth [facility]04-08-2025 Telephone encounter Note * Telephone Encounter - Shraddha House RN - 01/24/2025 9:37 AM EDT PSS- Per Fran, please make patient a new anemia consult. Would she be able to come in on at 1:00 pm? Schedule for an hour appointment. Shraddha House RN [facility]04-07-2025 NoteHNO ID: [id number] Author: BECKY IRELAND APRN.ATMOSPHERIC CHEMIST Service: ? Author Type: Nurse Practitioner Type: Progress Notes Filed: 01/23/2025 19:37 Note Text: This is a 54 year old female who presents today with: Becky is a 54-year-old female with a history of RA, presenting for evaluation of tachycardia, anemia, and rectal bleeding. HISTORY OF PRESENT ILLNESS: Tachycardia: - Reports feeling woozy more often. - Experiences dyspnea with exertion, such as climbing stairs. - Denies palpitations. - Amlodipine was recently discontinued. She is off the lisinopril due to out of medication. - Inquires about methods to check blood pressure at home. Anemia: - Recent hemoglobin level of 8.5 g/dL at [facility]. - Taking iron supplements: 65 mg BID. - Reports constipation, attributing it to iron supplementation. - Attempting to maintain hydration. - Recent weight loss; desires to regain weight. - Consuming a balanced diet, including potatoes, meat, broccoli, and eggs. - Taking calcium and vitamin D3 supplements. Rectal Bleeding: - Noticed blood on toilet paper after a bowel movement during a recent ER visit. - Experienced spotting for about 5 days, but no bleeding in the past 5-6 days. - Denies vaginal bleeding or hematuria. - Recent stool sample was negative for blood. - Due for a colonoscopy this year; [id number] works for Dr. Harrington and can assist with scheduling. Rheumatoid Arthritis: - Follow-up with insurance and benefits clerk Dr. Mauricio Self scheduled for Thursday. - Recent history of sepsis related to RA. PAST MEDICAL HISTORY: PAST MEDICAL HISTORY Diagnosis Date Breast cancer (HCC) 2019 PMH - PAST MEDICAL HISTORY OF FATIGUE PMH - PAST MEDICAL HISTORY OF achy joints Premenstrual tension syndromes PMS Rheumatoid arthritis involving multiple sites ([facility]) 05/20/2021 Rheumatoid arthritis(714.0) PAST SURGICAL HISTORY Procedure Laterality Date COLONOSCOPY, COLORECTAL SCREEN 10/17/2019 Dr. Travis Elias, [facility]; 4mm sessile polyp in proximal sigmoid colon, many diverticula in sigmoid colon, repeat in 5yr's MASTECTOMY HX Bilateral 2020 with tissue flap reconstruction PAST SURGICAL HISTORY OF Right 12/28/2018 lumpectomy PROVIDE CHEMOTHERAPY AGENT 2019 RADIATION THERAPY 2019 REMOVAL OF OVARY(S) Bilateral 02/2020 SALPINGECTOMY Bilateral 02/2020 TONSILLECTOMY PRIMARY/SECONDARY Tonsillectomy ALLERGIES Patient has no known allergies. MEDICATIONS Current Outpatient Medications Medication Sig anastrozole (ARIMIDEX) 1 mg tablet Take 1 tablet by mouth once daily. hydrOXYchloroQUINE (PLAQUENIL) 200 mg tablet Take 200 mg by mouth once daily. cholecalciferol, vitamin D3, (VITAMIN D3 ORAL) Take 2,000 Units by mouth once daily. certolizumab pegol (CIMZIA SUBCUTANEOUS) Inject 200 mg subcutaneously. Twice a month calcium carbonate/vitamin D3 (CALCIUM 600 + D ORAL) Take 1 tablet by mouth once daily. leflunomide (ARAVA) 20 mg tablet Take 20 mg by mouth once daily. ferrous sulfate 325 mg (65 mg iron) tablet Take 325 mg by mouth once daily. DAILY MULTIVITAMIN TAB Take 1 tablet by mouth once daily. No current facility-administered medications for this visit. FAMILY HISTORY Problem Relation Age of Onset Cancer Mother throat - radiation Cancer Father LUNG Hypertension Brother Diabetes Brother type 2 Hypertension Brother other (CHF) Maternal Grandfather Hypertension Paternal Grandfather Heart Paternal Grandfather No Known Problems Daughter Diabetes Son Type 1 Cancer Other Cancer Other Social History Tobacco Use Smoking status: Never Smokeless tobacco: Never Vaping Use Vaping status: Never Used Substance Use Topics Alcohol use: No Drug use: No REVIEW OF SYSTEMS Constitutional: (+) fatigue, (+) weakness, (+) weight loss Cardiovascular: (+) tachycardia, (-) palpitations Respiratory: (+) cough, (+) shortness of breath Gastrointestinal: (+) mild constipation Genitourinary: (-) hematuria, (-) vaginal bleeding Musculoskeletal: (+) mild upper extremity weakness Neurological: (+) dizziness EXAM: BP 120/98 Pulse (!) 123 Resp 16 Wt 60.3 kg (133 lb) LMP 12/04/2016 SpO2 96% BMI 21.50 kg/m? PHYSICAL EXAM: General Appearance: Well appearing, alert, in no acute distress, well-hydrated, well nourished. Skin: Skin color, texture, turgor normal, no suspicious rashes or lesions. Head: Normocephalic, no masses, lesions, tenderness or abnormalities. Eyes: Anicteric sclera. Extraocular movements are intact. . Lungs: continues to be decreased right base. Heart: RRR without murmur, gallop, or rubs. No ectopy. Neurologic: Gait normal. ASSESSMENT/PLAN 1. Blood in stool (K92.1) - small amount of rectal bleeding recently noted in the ER. Negative ifob results here. - Referral to Dr. Harrington for GI evaluation and potential colonoscopy. 2. Anemia, unspecified type (D64.9) - Hemoglobin previously at 8.5 g/dL. - Continue oral iron s (more content not included)...[facility] 01-23-2025 History of Present illness Narrative* Becky Ireland APRN.[facility] - 01/23/2025 7:26 PM EDT This is a 54 year old female who presents today with: Becky is a 54-year-old female with a history of RA, presenting for evaluation of tachycardia, anemia, and rectal bleeding. HISTORY OF PRESENT ILLNESS: Tachycardia: - Reports feeling woozy more often. - Experiences dyspnea with exertion, such as climbing stairs. - Denies palpitations. - Amlodipine was recently discontinued. She is off the lisinopril due to out of medication. - Inquires about methods to check blood pressure at home. Anemia: - Recent hemoglobin level of 8.5 g/dL at [facility]. - Taking iron supplements: 65 mg BID. - Reports constipation, attributing it to iron supplementation. - Attempting to maintain hydration. - Recent weight loss; desires to regain weight. - Consuming a balanced diet, including potatoes, meat, broccoli, and eggs. - Taking calcium and vitamin D3 supplements. Rectal Bleeding: - Noticed blood on toilet paper after a bowel movement during a recent ER visit. - Experienced spotting for about 5 days, but no bleeding in the past 5-6 days. - Denies vaginal bleeding or hematuria. - Recent stool sample was negative for blood. - Due for a colonoscopy this year; [id number] works for Dr. Harrington and can assist with scheduling. Rheumatoid Arthritis: - Follow-up with insurance and benefits clerk Dr. Mauricio Self scheduled for Thursday. - Recent history of sepsis related to RA. PAST MEDICAL HISTORY: PAST MEDICAL HISTORY Diagnosis Date Breast cancer (HCC) 2019 PMH - PAST MEDICAL HISTORY OF FATIGUE PMH - PAST MEDICAL HISTORY OF achy joints Premenstrual tension syndromes PMS Rheumatoid arthritis involving multiple sites ([facility]) 05/20/2021 Rheumatoid arthritis(714.0) PAST SURGICAL HISTORY Procedure Laterality Date COLONOSCOPY, COLORECTAL SCREEN 10/17/2019 Dr. Travis Elias, [facility]; 4mm sessile polyp in proximal sigmoid colon, many diverticula in sigmoid colon, repeat in 5yr's MASTECTOMY HX Bilateral 2019 with tissue flap reconstruction PAST SURGICAL HISTORY OF Right 12/28/2018 lumpectomy PROVIDE CHEMOTHERAPY AGENT 2019 RADIATION THERAPY 2019 REMOVAL OF OVARY(S) Bilateral 02/2020 SALPINGECTOMY Bilateral 02/2020 TONSILLECTOMY PRIMARY/SECONDARY <AGE 10 Tonsillectomy ALLERGIES Patient has no known allergies. MEDICATIONS Current Outpatient Medications Medication Sig anastrozole (ARIMIDEX) 1 mg tablet Take 1 tablet by mouth once daily. hydrOXYchloroQUINE (PLAQUENIL) 200 mg tablet Take 200 mg by mouth once daily. cholecalciferol, vitamin D3, (VITAMIN D3 ORAL) Take 2,000 Units by mouth once daily. certolizumab pegol (CIMZIA SUBCUTANEOUS) Inject 200 mg subcutaneously. Twice a month calcium carbonate/vitamin D3 (CALCIUM 600 + D ORAL) Take 1 tablet by mouth once daily. leflunomide (ARAVA) 20 mg tablet Take 20 mg by mouth once daily. ferrous sulfate 325 mg (65 mg iron) tablet Take 325 mg by mouth once daily. DAILY MULTIVITAMIN TAB Take 1 tablet by mouth once daily. No current facility-administered medications for this visit. FAMILY HISTORY Problem Relation Age of Onset Cancer Mother throat - radiation Cancer Father LUNG Hypertension Brother Diabetes Brother type 2 Hypertension Brother other (CHF) Maternal Grandfather Hypertension Paternal Grandfather Heart Paternal Grandfather No Known Problems Daughter Diabetes Son Type 1 Cancer Other Cancer Other Social History Tobacco Use Smoking status: Never Smokeless tobacco: Never Vaping Use Vaping status: Never Used Substance Use Topics Alcohol use: No Drug use: No REVIEW OF SYSTEMS Constitutional: (+) fatigue, (+) weakness, (+) weight loss Cardiovascular: (+) tachycardia, (-) palpitations Respiratory: (+) cough, (+) shortness of breath Gastrointestinal: (+) mild constipation Genitourinary: (-) hematuria, (-) vaginal bleeding Musculoskeletal: (+) mild upper extremity weakness Neurological: (+) dizziness EXAM: BP 120/98 Pulse (!) 123 Resp 16 Wt 60.3 kg (133 lb) LMP 12/04/2016 SpO2 96% BMI 21.50 kg/m PHYSICAL EXAM: General Appearance: Well appearing, alert, in no acute distress, well-hydrated, well nourished. Skin: Skin color, texture, turgor normal, no suspicious rashes or lesions. Head: Normocephalic, no masses, lesions, tenderness or abnormalities. Eyes: Anicteric sclera. Extraocular movements are intact. . Lungs: continues to be decreased right base. Heart: RRR without murmur, gallop, or rubs. No ectopy. Neurologic: Gait normal. ASSESSMENT/PLAN 1. Blood in stool (K92.1) - small amount of rectal bleeding recently noted in the ER. Negative ifob results here. - Referral to Dr. Harrington for GI evaluation and potential colonoscopy. 2. Anemia, unspecified type (D64.9) - Hemoglobin previously at 8.5 g/dL. - Continue oral iron supplementation, 65 mg BID. Discussed increasing to TID if her stomach tolerates. - Ordered repeat CBC towards the end of the week. - Referral to hematology for evaluation if IV iron treatment is indicated. 3. Tachycardia (R00.0) - Ordered echocardiogram to assess cardiac function. - Advised patient to monitor blood pressure at home using a cuff from the drugstore. - Discussed the importance of hydration and stress management. 4. Essential (primary) hypertension (I10) - Discontinued lisinopril. - Monitor blood pressure at home. Discussed treatment plan and patient voices understanding. Patient's questions answered appropriately. Medications and potential side effects were discussed and patient voices understanding. Return to the office as scheduled or as needed for worsening/no improvement. Becky Ireland APRN.RAY The patient consented to the use of [employer] software for draft documentation of the visit consistent with [facility] s Notice of Privacy Practices. documented in this encounterOhiohealth Arthur [facility]04-07-2025 Telephone encounter Note * Telephone Encounter - Becky Ireland APRN.CNP - 01/23/2025 7:09 PM EDT Pt in for recheck. Was in the ER on 01/13 and Hgb - 8.5. Continues with tachycardia and episodes of feeling woozy. She is taking po iron twice daily. Referral to heme-onc for eval of anemia and tx options. [facility]04-07-2025 Instructions* Patient Instructions* Becky Ireland APRN.CNP - 01/23/2025 7:04 PM EDT - Start taking Metoprolol, half a tablet once a day, to help slow your heart rate; prescription sent to your pharmacy. - Discontinue Lisinopril. - Continue taking your current iron supplements. - Stay well-hydrated; aim to drink water throughout the day. - Monitor your blood pressure at home using a cuff from the drugstore. - Complete blood work at the end of the week to check your blood count. - Referral to a asset protection assistant has been made; they will contact you to schedule an appointment if necessary. - Referral to a mortgage branch manager (GI) has been made; they will contact you to schedule an appointment. - An echocardiogram (ultrasound of the heart) has been ordered; the imaging center will contact youto schedule this test. documented in this encounterOhiohealth Arthur [facility]03-31-2025 Telephone encounter Note * Telephone Encounter - Isabell Auguste RN - 01/16/2025 11:22 AM EDT Patient calls and notified of results and providers instructions. Patient verbalizes understanding. Isabell Auguste RN [facility]03-31-2025 Miscellaneous Notes* Telephone Encounter - Isabell Auguste RN - 01/16/2025 11:22 AM EDT Patient calls and notified of results and providers instructions. Patient verbalizes understanding. Isabell Auguste RN * Telephone Encounter - Becky Ireland APRN.CNP - 01/16/2025 10:36 AM EDT Can please let patient know that I received her labs. Anemia was a little improved. It does appear to be related to the low iron. (Her ferritin was elevated, however, this is likely an inflammatory response to all of her recent sickness). Please continue the twice daily iron supplements and increase iron- rich foods. Lets have her recheck a count in 2 weeks to ensure it is still moving the right direction. The order is in. Becky Ireland APRN.CNP documented in this encounterOhiohealth Arthur [facility]03-31-2025 Telephone encounter Note * Telephone Encounter - Becky Ireland APRN.CNP - 01/16/2025 10:36 AM EDT Can please let patient know that I received her labs. Anemia was a little improved. It does appear to be related to the low iron. (Her ferritin was elevated, however, this is likely an inflammatory response to all of her recent sickness). Please continue the twice daily iron supplements and increase iron- rich foods. Lets have her recheck a count in 2 weeks to ensure it is still moving the right direction. The order is in. Becky Ireland APRN.CNP [facility]03-28-2025 Discharge summary [facility] Medical Records Department [address] [place] [address] Emergency Department Summary 01/13/25 MR#: [id number] Acct: [id number] Name: BECKY HUFFMAN Rep #:[id number] : 1970 54 From: Rodrigue Arguello DO PCP: ELIZABETH Garcia Status:REG E R Location: ED HPI History of Present Illness Chief Complaint: Dizziness Narrative Narrative: Patient is a 54-year-old female who is presenting to the ER with chief complaintof fatigue, weakness, concern for low iron levels. Patient was recently diagnosed with influenza A, patient has a history of rheumatoid arthritis. Patient developed septic joint from left wrist and bilateral shoulders. Nate dietz admitted to the hospital for approximately thyroid December 21. Patient had surgery to left wrist and bilateral shoulders, incisions were made, joints were draining, and patient was in thehospital for IV antibiotics. Patient was discharged after approximately in the hospital for 7 days.Patient has a history of low iron levels. Patient has increased her iron levels recently. Patient was brought in by a friend secondary to generalized weakness, fatigue, normal shortness of breath. Patient stated she has small amount of fluid in theright lower lung with pleural effusion, she has no fever, no cough, she has no fever, no cough, no chills. No bowel or bladder changes. No acute complaints. [facility] Medical History BRCA gene positive Breast cancer metastasized to axillary lymph node Breast cancer, right breast Rheumatoid arthritis Home Medications ?Medication ?Instructions ?Recorded ?Last Taken ?Type multivitamin 1 tab PO DAILY general healt h 11/29/18 01/12/25 History anastrozole 1 mg tablet 1 mg PO DAILY arthritis 09/1901/12/25 History ferrous sulfate 325 mg (65 mg 325 mg PO BID anemia 01/13/25 History iron) tablet calcium 500 mg (as 1 ea PO BID def. 02/21/20 History carbonate)-vitamin D3 15 mcg (600 unit) tablet certolizumab pegol 400 mg/2 mL 200 mg subcut Q2W arthr itis 12/31/20 01/05/25 History (200 mg/mL x2) subcutaneous syringe kit (Cimzia) hydroxychloroquine 200 mg tablet 200 mg PO QHS arthrit is 07/09/21 01/12/25 History hydrocortisone 2.5 % topical 1 applic topical BID PRN perineal 12/15/24 Unknown History ointment area leflunomide 20 mg tablet 20 mg PO DAILY arthritis 01/12/25 History lisinopril 10 mg tablet 10 mg PO DAILY #60 tabs 03/03/1201/13/25 Rx Lactobacillus acidophilus 1 tab PO DAILY 01/13/2512/18 History acetaminophen 500 mg tablet 1,000 mg PO Q8H PRN pain 0 01/13/25 Unknown History Allergy/AdvReac Type Severity Reaction Status Date / Time No Known Allergies Allergy Verified 01/13/25 11:11 Family History Son Diabetes Grandfather Heart disease Mother Cancer possible throat cancer (Went through radiation) Father Cancer lung Surgical History S/P bilateral salpingo-oophorectomy S/P breast reconstruction S/P bilateral mastectomy Status post right breast lumpectomy (~12/2018) History of tonsillectomy Social History household members: none housing: apartment current occupational status: employed Smoking Status: Never smoker alcohol intake: current alcohol intake frequency: holidays/special occasions only substance use type: does not use caffeine: Yes what type of physical activity do you participate in: walking and aerobics frequency: 5-6 times per week seatbelt use: always do you feel safe at home: Yes additional social history: Patient works at [employer] home ROS ROS ED ROS Narrative REVIEW OF SYSTEMS: Unless otherwise stated in this report the patient's positiveand negative responses for review of systems for constitutional, eyes, ENT, cardiovascular, respiratory, gastrointestinal, neurological, , musculoskeletal, and integument systems and related systems to the presenting p roblem are either stated in the history of present illness or were not pertinent or were negative for the symptoms and/or complaints related to the presenting medical problem. EXAM Physical Exam Narrative Exam Narrative: Vital signs reviewed and patient is not hypoxic. General: The patient appears well and in no apparent distress. Patient is resting comfortably on cart. Not toxic, lethargic, or listless. Skin: Warm, dry, no pallor noted. There is no rash noted. Head: Normocephalic, atraumatic Eye: Minimal pale conjunctiva, no drainage, EOMI. PERRL. Ears, Nose, Mouth, and Throat: oral mucosa is moist. Nares patent. Mouth withoutvesicles. Cardiovascular: Regular Rate and Rhythm, no murmurs, gallops, or rubs Respiratory: Patient is in no distress, no accessory muscle use, lungs are clearto auscultation, nowheezing, rales or rhonchi slight decreased breath sounds onthe, right compared to the left. That is where she has had her small pleural effusion to the right lower base. Back: non-tender, no CVA tenderness bilaterally to percussion. NO CTLS midline or paraspinal tenderness to palpation. GI: Soft, no tenderness to palpation, no masses appreciated. No rebound, guarding, or rigidity noted. Musculoskeletal: The patient has full range of motion of all extremities and joints with no difficulty. Patient has no motor, no sensory deficits. Neurological: A&O x4, normal speech, no focal neurological deficits. Psychiatric: Cooperative Const Vital Signs: 01/13/25 10:49 01/13/25 10:49 01/13/25 12:45 Temperature 98.3 F Temperature Source Oral Pulse Rate 132 H 112 H 110 H Respiratory Rate 22 H 22 H 17 Blood Pressure 131/86 H Blood Pressure Mean 101 Pulse Ox 98 98 97 Oxygen Delivery Method Room Air Room Air 01/13/25 13:00 01/13/25 13:04 Temperature Temperature Source Pulse Rate 106 H Respiratory Rate 15 Blood Pressure 126/75 H Blood Pressure Mean 92 Pulse Ox 97 Oxygen Delivery Method Room Air MDM MDM MDM Narrative Medical decision making narrative: Patient seen and examined: Patient was slightly pale, mild pale conjunctive up. No paleness noted underneath her tongue. Patient tachycardic in the 120s when she initially arrived. Patient have cardiac workup. Education was done on checking iron levels, she had her iron levels and lab test done at the [facility] as an outpatient before she came to the ER today. Patient had IV, IV fluids, cardiac assessment. Differential diagnosis includes but is not limited to: Dehydration, electrolyte abnormality, iron deficiency anemia, ACS, UTI, sepsis, anemia requiring transfusion Relevant laboratory interpretation: Patient has a white blood cell count of 13, H&H is 8.5/26. Platelets 466. CO2 19, anion gap 16, Radiological studies: Chest x-ray shows right basilar atelectasis versus pneumonia. Patient has no rhonchi. No fever. No cough. Patient did have small right pleural effusion in the right lower lobe last few weeks. She has been using her incentive spirometer at home, no treatment for pneumonia at this time Reevaluation: Patient was given 1 L of IV fluid. Patient heart rate did improvedown into the 100s, 1 teens. Patient was ambulated, her heart rate went up in the 120s to 130s. However, patient stated that she felt much better when she ambulated after 1 L of IV fluid. Patient wants to go home. She does not want to be admitted to the hospital. Social barriers to healthcare: There are no food insecurities, there is no issuewith transportation, there are no insurance barriers Disposition: Lengthy discussion on hemoglobin of 8.5. Patient's hemoglobin level 3 weeks ago was inthe low tens. Patient has no black stool. No hematemesis, no melena, no hematochezia. Patient did have a colonoscopy many years ago, patient's sister is at bedside, she is a [employer] at Dr. Harrington's office. Patient will follow-up as an outpatient, repeat EGD and colonoscopy as needed. No acute indication for transfusion at this time. Patient felt better after 2 SHERI fluid, no questions discharge Diagnosis: Anemia, weakness, fatigue, dehydration Lab Data Labs: Laboratory Results - last 24 hr 01/13/25 01/13/25 11:21 12:21 WBC 13.5 H RBC 2.85 L Hgb 8.5 L Hct 26.2 L MCV 91.9 MCH 29.8 MCHC 32.4 RDW Std Deviation 45.5 H RDW Coeff of Myla 13.6 Plt Count 466 H MPV 9.1 Immature Gran % (Auto) 0.500 Neut % (Auto) 65.0 Lymph % (Auto) 20.2 [place] % (Auto) 13.2 H Eos % (Auto) 0.4 Baso % (Auto) 0.7 Absolute Neuts (auto) 8.8 H Absolute Lymphs (auto) 2.73 Nucleated RBC % 0 Platelet Estimate SLT INC Polychromasia 1+ PT 15.2 H INR 1.2 APTT 31.9 Sodium 137 Potassium 4.0 Chloride 102 Carbon Dioxide 19.4 L Anion Gap 16 H BUN 10 Creatinine 0.52 L Estim Creat Clear Calc 113.09 Est GFR (MDRD) Non-Af 109 BUN/Creatinine Ratio 20.1 H Glucose 97 Calcium 9.2 Troponin T High Sens 8 POC Glucose 108 H Radiography Diagnostic Testing: Clinical Impression(s) from Imaging Studies Chest X-Ray 01/13/25 12:40 IMPRESSION: Right basilar atelectasis or pneumonia. Reading Location: [facility] EKG Initial EKG: Attestation: I personally reviewed and interpreted this EKG as follows: (EKG interpretation. Sinus tachycardia at 113. Normal axis deviation. No acute ST elevation, no acute ectopy. QTc of 406.) Discharge Plan Triage Chief Complaint: Dizziness ED Provider: Rodrigue Arguello Dx/Rx/DC Orders Clinical Impression: Fatigue, Dehydration, Weakness, Anemia Instructions: GI Bleeding Causes and Tests, Anemia, ED Atelectasis, ED Dehydration (Adult) Prescriptions: No Action multivitamin tablet 1 tab PO DAILY Cimzia 400 mg/2 mL (200 mg/mL x 2) syringe kit 200 mg SC Q2W anastrozole 1 MG tablet 1 mg PO DAILY ferrous sulfate 325 MG tablet 325 mg PO BID hydroxychloroquine 200 mg tablet 200 mg PO QHS calcium carbonate-vitamin D3 1 EACH tablet 1 ea PO BID Lactobacillus acidophilus [Acidophilus] 1 tab PO DAILY acetaminophen 500 mg Tablet 1,000 mg PO Q8H PRN (Reason: pain) leflunomide 20 mg tablet 20 mg PO DAILY hydrocortisone 2.5 % ointment 1 applic topical BID PRN (Reason: perineal area) lisinopril 10 mg Tablet 10 mg PO DAILY Qty: 60 0RF Primary Care Provider: Becky Ireland NP Referrals: Becky Ireland PIN CHASER, PIN CHASER-C [Primary Care Provider] - Activity Restrictions/Additional Instructions: Increase fluids at home, Gatorade, Powerade, water. You are given 2 L of IV fluid for hydration. Your hemoglobin level was 8.5. 3 weeks ago, your hemoglobin level is 10. Follow-up with your GI office for further evaluation, and possible repeat endoscopy and colonoscopyif needed. Education was given to you for GI bleeding just for educational purposes only. Follow-up with GI physician for further testing as discussed. Print Language: Venezuelan Disposition Disposition: Home, Self Care What to do if you have Problems For any increased pain, shortness of breath, bleeding, nausea or vomiting, chestpain, or any unexpected problems, contact your Primary Care Provider. Call [facility] ([phone]) or report tothe closest Emergency Room. Call 911 if necessary. 01/13/25 1428 Cosigner Signature (if applicable): CC: ELIZABETH Ireland ~ Signed [facility]03-28-2025 Discharge summary Author Rodrigue Arguello [facility] Note Date/Time January 13, 2025 2:2 8pm [facility] Medical Records Department [address] [place] [address] Emergency Department Summary 01/13/25 MR#: [id number] Acct: [id number] Name: BECKY HUFFMAN Rep #:[id number] : 1970 54 From: Rodrigue Arguello DO PCP: ELIZABETH Garcia Status:REG E R Location: ED HPI History of Present Illness Chief Complaint: Dizziness Narrative Narrative: Patient is a 54-year-old female who is presenting to the ER with chief complaintof fatigue, weakness, concern for low iron levels. Patient was recently diagnosed with influenza A, patient has a history of rheumatoid arthritis. Patient developed septic joint from left wrist and bilateral shoulders. Patientwas admitted to the hospital for approximately thyroid December 21. Patient had surgery to left wrist and bilateral shoulders, incisions were made, joints were draining, and patient was in the hospital for IV antibiotics. Patient was discharged after approximately in the hospital for 7 days. Patient has a history of low iron levels. Patient has increased her iron levels recently. Patient was brought in by a friend secondary to generalized weakness, fatigue, normal shortness of breath. Patient stated she has small amount of fluid in theright lower lung with pleural effusion, she has no fever, no cough, she has no fever, no cough, no chills. No bowel or bladder changes. No acute complaints. [facility] Medical History BRCA gene positive Breast cancer metastasized to axillary lymph node Breast cancer, right breast Rheumatoid arthritis Home Medications ?Medication ?Instructions ?Recorded ?Last Taken ?Type multivitamin 1 tab PO DAILY general healt h 11/29/18 01/12/25 History anastrozole 1 mg tablet 1 mg PO DAILY arthritis 09/1901/12/25 History ferrous sulfate 325 mg (65 mg 325 mg PO BID anemia 01/13/25 History iron) tablet calcium 500 mg (as 1 ea PO BID def. 02/21/20 History carbonate)-vitamin D3 15 mcg (600 unit) tablet certolizumab pegol 400 mg/2 mL 200 mg subcut Q2W arthr itis 12/31/20 01/05/25 History (200 mg/mL x2) subcutaneous syringe kit (Cimzia) hydroxychloroquine 200 mg tablet 200 mg PO QHS arthrit is 07/09/21 01/12/25 History hydrocortisone 2.5 % topical 1 applic topical BID PRN perineal 12/15/24 Unknown History ointment area leflunomide 20 mg tablet 20 mg PO DAILY arthritis 01/12/25 History lisinopril 10 mg tablet 10 mg PO DAILY #60 tabs 0303/1201/13/25 Rx Lactobacillus acidophilus 1 tab PO DAILY 01/13/2512/18 History acetaminophen 500 mg tablet 1,000 mg PO Q8H PRN pain 0 01/13/25 Unknown History Allergy/AdvReac Type Severity Reaction Status Date / Time No Known Allergies Allergy Verified 01/13/25 11:11 Family History Son Diabetes Grandfather Heart disease Mother Cancer possible throat cancer (Went through radiation) Father Cancer lung Surgical History S/P bilateral salpingo-oophorectomy S/P breast reconstruction S/P bilateral mastectomy Status post right breast lumpectomy (~12/2018) History of tonsillectomy Social History household members: none housing: apartment current occupational status: employed Smoking Status: Never smoker alcohol intake: current alcohol intake frequency: holidays/special occasions only substance use type: does not use caffeine: Yes what type of physical activity do you participate in: walking and aerobics frequency: 5-6 times per week seatbelt use: always do you feel safe at home: Yes additional social history: Patient works at [employer], [employer] home ROS ROS ED ROS Narrative REVIEW OF SYSTEMS: Unless otherwise stated in this report the patient's positiveand negative responses for review of systems for constitutional, eyes, ENT, cardiovascular, respiratory, gastrointestinal, neurological, , musculoskeletal, and integument systems and related systems to the presenting problem are either stated in the history of present illness or were not pertinent or were negative for the symptoms and/or complaints related to the presenting medical problem. EXAM Physical Exam Narrative Exam Narrative: Vital signs reviewed and patient is not hypoxic. General: The patient appears well and in no apparent distress. Patient is resting comfortably on cart. Not toxic, lethargic, or listless. Skin: Warm, dry, no pallor noted. There is no rash noted. Head: Normocephalic, atraumatic Eye: Minimal pale conjunctiva, no drainage, EOMI. PERRL. Ears, Nose, Mouth, and Throat: oral mucosa is moist. Nares patent. Mouth withoutvesicles. Cardiovascular: Regular Rate and Rhythm, no murmurs, gallops, or rubs Respiratory: Patient is in no distress, no accessory muscle use, lungs are clearto auscultation, no wheezing, rales or rhonchi slight decreased breath sounds onthe, right compared to the left. That is where she has had her small pleural effusion to the right lower base. Back: non-tender, no CVA tenderness bilaterally to percussion. NO CTLS midline or paraspinal tenderness to palpation. GI: Soft, no tenderness to palpation, no masses appreciated. No rebound, guarding, or rigidity noted. Musculoskeletal: The patient has full range of motion of all extremities and joints with no difficulty. Patient has no motor, no sensory deficits. Neurological: A&O x4, normal speech, no focal neurological deficits. Psychiatric: Cooperative Const Vital Signs: 01/13/25 10:49 01/13/25 10:49 01/13/25 12:45 Temperature 98.3 F Temperature Source Oral Pulse Rate 132 H 112 H 110 H Respiratory Rate 22 H 22 H 17 Blood Pressure 131/86 H Blood Pressure Mean 101 Pulse Ox 98 98 97 Oxygen Delivery Method Room Air Room Air 01/13/25 13:00 01/13/25 13:04 Temperature Temperature Source Pulse Rate 106 H Respiratory Rate 15 Blood Pressure 126/75 H Blood Pressure Mean 92 Pulse Ox 97 Oxygen Delivery Method Room Air MDM MDM MDM Narrative Medical decision making narrative: Patient seen and examined: Patient was slightly pale, mild pale conjunctive up. No paleness noted underneath her tongue. Patient tachycardic in the 120s when she initially arrived. Patient have cardiac workup. Education was done on checking iron levels, she had her iron levels and lab test done at the [facility] as an outpatient before she came to the ER today. Patient had IV, IV fluids, cardiac assessment. Differential diagnosis includes but is not limited to: Dehydration, electrolyte abnormality, iron deficiency anemia, ACS, UTI, sepsis, anemia requiring transfusion Relevant laboratory interpretation: Patient has a white blood cell count of 13, H&H is 8.5/26. Platelets 466. CO2 19, anion gap 16, Radiological studies: Chest x-ray shows right basilar atelectasis versus pneumonia. Patient has no rhonchi. No fever. No cough. Patient did have small right pleural effusion in the right lower lobe last few weeks. She has been using her incentive spirometer at home, no treatment for pneumonia at this time Reevaluation: Patient was given 1 L of IV fluid. Patient heart rate did improvedown into the 100s, 1 teens. Patient was ambulated, her heart rate went up in the 120s to 130s. However, patient stated that she felt much better when she ambulated after 1 L of IV fluid. Patient wants to go home. She does not want to be admitted to the hospital. Social barriers to healthcare: There are no food insecurities, there is no issuewith transportation, there are no insurance barriers Disposition: Lengthy discussion on hemoglobin of 8.5. Patient's hemoglobin level 3 weeks ago was in the low tens. Patient has no black stool. No hematemesis, no melena, no hematochezia. Patient did have a colonoscopy many years ago, patient's sister is at bedside, she is a [employer] at Dr. Harrington's office. Patient will follow-up as an outpatient, repeat EGD and colonoscopy as needed. No acute indication for transfusion at this time. Patient felt better after 2 SHERI fluid, no questions discharge Diagnosis: Anemia, weakness, fatigue, dehydration Lab Data Labs: Laboratory Results - last 24 hr 01/13/25 01/13/25 11:21 12:21 WBC 13.5 H RBC 2.85 L Hgb 8.5 L Hct 26.2 L MCV 91.9 MCH 29.8 MCHC 32.4 RDW Std Deviation 45.5 H RDW Coeff of Myla 13.6 Plt Count 466 H MPV 9.1 Immature Gran % (Auto) 0.500 Neut % (Auto) 65.0 Lymph % (Auto) 20.2 [place] % (Auto) 13.2 H Eos % (Auto) 0.4 Baso % (Auto) 0.7 Absolute Neuts (auto) 8.8 H Absolute Lymphs (auto) 2.73 Nucleated RBC % 0 Platelet Estimate SLT INC Polychromasia 1+ PT 15.2 H INR 1.2 APTT 31.9 Sodium 137 Potassium 4.0 Chloride 102 Carbon Dioxide 19.4 L Anion Gap 16 H BUN 10 Creatinine 0.52 L Estim Creat Clear Calc 113.09 Est GFR (MDRD) Non-Af 109 BUN/Creatinine Ratio 20.1 H Glucose 97 Calcium 9.2 Troponin T High Sens 8 POC Glucose 108 H Radiography Diagnostic Testing: Clinical Impression(s) from Imaging Studies Chest X-Ray 01/13/25 12:40 IMPRESSION: Right basilar atelectasis or pneumonia. Reading Location: [facility] EKG Initial EKG: Attestation: I personally reviewed and interpreted this EKG as follows: (EKG interpretation. Sinus tachycardia at 113. Normal axis deviation. No acute ST elevation, no acute ectopy. QTc of 406.) Discharge Plan Triage Chief Complaint: Dizziness ED Provider: Rodrigue Arguello Dx/Rx/DC Orders Clinical Impression: Fatigue, Dehydration, Weakness, Anemia Instructions: GI Bleeding Causes and Tests, Anemia, ED Atelectasis, ED Dehydration (Adult) Prescriptions: No Action multivitamin tablet 1 tab PO DAILY Cimzia 400 mg/2 mL (200 mg/mL x 2) syringe kit 200 mg SC Q2W anastrozole 1 MG tablet 1 mg PO DAILY ferrous sulfate 325 MG tablet 325 mg PO BID hydroxychloroquine 200 mg tablet 200 mg PO QHS calcium carbonate-vitamin D3 1 EACH tablet 1 ea PO BID Lactobacillus acidophilus [Acidophilus] 1 tab PO DAILY acetaminophen 500 mg Tablet 1,000 mg PO Q8H PRN (Reason: pain) leflunomide 20 mg tablet 20 mg PO DAILY hydrocortisone 2.5 % ointment 1 applic topical BID PRN (Reason: perineal area) lisinopril 10 mg Tablet 10 mg PO DAILY Qty: 60 0RF Primary Care Provider: Becky Ireland NP Referrals: Becky Ireland NP, PIN CHASER-C [Primary Care Provider] - Activity Restrictions/Additional Instructions: Increase fluids at home, Gatorade, Powerade, water. You are given 2 L of IV fluid for hydration. Your hemoglobin level was 8.5. 3 weeks ago, your hemoglobin level is 10. Follow-up with your GI office for further evaluation, and possible repeat endoscopy and colonoscopy if needed. Education was given to you for GI bleeding just for educational purposes only. Follow-up with GI physician for further testing as discussed. Print Language: Venezuelan Disposition Disposition: Home, Self Care What to do if you have Problems For any increased pain, shortness of breath, bleeding, nausea or vomiting, chestpain, or any unexpected problems, contact your Primary Care Provider. Call [facility] ([phone]) or report to the closest Emergency Room. Call 911 if necessary. 01/13/25 1428 <Electronically signed by Rodrigue Arguello DO> Cosigner Signature (if applicable): CC: PIN CHASER-C Becky Ireland ~ Signed [facility] Work Phone: [phone]) 726-733003-28-2025 Radiology Diagnostic study note [facility] Imaging Services [address] [place] [id number] Chest 1 View (Portable) MR#: [id number] Acct: [id number] Name: BECKY HUFFMAN Rep #: [id number] : 1970 F 54 From: Mitzy Pearson MD PCP: ELIZABETH Garcia Status: REG E R Study:Chest 1 View (Portable) Date of Exam: 01/13/25 Exam# [id number] Ordering Dr: Michele Arguello DO EXAM: XR Chest, 1 View CLINICAL INDICATION: CHEST PAIN TECHNIQUE: Frontal view of the chest. COMPARISON: No relevant prior studies available. FINDINGS: LUNGS AND PLEURAL SPACES: Right basilar atelectasis or pneumonia. No pneumothorax. HEART: Unremarkable. No cardiomegaly. MEDIASTINUM: Unremarkable. Normal mediastinal contour. BONES/JOINTS: Unremarkable. No acute fracture. RAD/Chest 1 View (Portable) IMPRESSION: Right basilar atelectasis or pneumonia. Reading Location: [facility] CC: ELIZABETH Irleand; Dr. Rodrigue Arguello, DO ~ Tourist Adviser: Signed [facility]03-27-2025 Telephone encounter Note* Telephone Encounter - Merrill Argueta MA - 01/12/2025 1:41 PM EDT Called and spoke with patient who says she feels great. She's been taking her iron supplement as prescribed and eating more iron in her diet. States if she starts to feel off or tachycardia gets worse she will go to the ER. Merrill Argueta MA [facility]03-27-2025 Miscellaneous Notes* Telephone Encounter - Merrill Argueta MA - 01/12/2025 1:41 PM EDT Called and spoke with patient who says she feels great. She's been taking her iron supplement as prescribed and eating more iron in her diet. States if she starts to feel off or tachycardia gets worse she will go to the ER. Merrill Argueta MA * Telephone Encounter - Onelia John APRN.CNP - 01/12/2025 12:14 PM EDT Tachycardia is likely coming from the anemia. Nothing I can do. Please have patient go back to the ER, may want to Blood transfusion. * Telephone Encounter - Caio Hartley RN - 01/12/2025 10:09 AM EDT Heena- OT- [facility]- reports she saw pt today. Reports pt saw pcp yesterday for hypotension, low energy, and tachycardia and amlodipine was discontinued. Pt still taking lisinopril. Labs show pt is anemic and iron was increased to twice daily. Pt is scheduled to see Pulm for pleural effusion right base. Heena reports pt looks and feels better today but still having decreased energy. BP today, for the first time did not drop. Beginning of visit 122/85 and end of visit 110/76. HR remains 122-127 at rest and after visit was 120. Unsure if a provider needs to look at this today since pt saw pcp yesterday. Sending to [place] for review since [place] and [place] are out of office today. documented in this encounterOhio[facility]-27-[facility]25 Telephone encounter Note * Telephone Encounter - Onelia John APRN.CNP - 01/12/2025 12:14 PM EDT Tachycardia is likely coming from the anemia. Nothing I can do. Please have patient go back to the ER, may want to Blood transfusion. [facility] Work Phone: [phone]) [phone] Telephone encounter Note* Telephone Encounter - Caio Hartley RN - 01/12/2025 10:09 AM EDT Heena- [facility]- reports she saw pt today. Reports pt saw pcp yesterday for hypotension, low energy, and tachycardia and amlodipine was discontinued. Pt still taking lisinopril. Labs show pt is anemic and iron was increased to twice daily. Pt is scheduled to see Pulm for pleural effusion right base. Heena reports pt looks and feels better today but still having decreased energy. BP today, for the first time did not drop. Beginning of visit 122/85 and end of visit 110/76. HR remains 122-127 at rest and after visit was 120. Unsure if a provider needs to look at this today since pt saw pcp yesterday. Sending to [place] for review since [place] and [place] are out of office today. [facility]03-26-2025 Telephone encounter Note* Telephone Encounter - Caio Hartley RN - 01/11/2025 4:34 PM EDT Pt returned call and given provider's message below with verbalized understanding. Pt agreeable. Ptstates she is not having bleeding anywhere. Reports she was off of iron during hospital stay and has been back on iron 65 mg daily for 1 week. [facility]03-26-2025 Miscellaneous Notes* Telephone Encounter - Caio Hartley RN - 01/11/2025 4:34 PM EDT Pt returned call and given provider's message below with verbalized understanding. Pt agreeable. Ptstates she is not having bleeding anywhere. Reports she was off of iron during hospital stay and has been back on iron 65 mg daily for 1 week. * Telephone Encounter - Castro Hall LPN - 01/11/2025 2:26 PM EDT LM to return call to office. Castro Hall LPN * Telephone Encounter - Becky Ireland APRN.RAY - 01/11/2025 12:57 PM EDT Can please let patient that I received her CBC results (everything else is still in process). She is significantly anemic. This is likely what is causing her fatigue, low blood pressure, and faster heart rate. Is she having any bleeding anywhere? Any blood in stool? Blood in urine? Vaginal bleeding? Etc? Is she still taking iron daily? If so, can we please have her increase this to twice daily. Lets also get some additional labwork, including an ifob. The orders are in (ideally this week). If she gets any worsening symptoms (chest pain, dizziness, shortness of breath, palpitations) she should proceed to the ER. Becky Ireland APRN.RAY documented in this encounterOhiohealth [facility]03-26-2025 Telephone encounter Note * Telephone Encounter - Castro Hall LPN - 01/11/2025 2:26 PM EDT LM to return call to office. Castro Hall LPN [facility]03-26-2025 Telephone encounter Note* Telephone Encounter - Becky Ireland APRN.CNP - 01/11/2025 12:57 PM EDT Can please let patient that I received her CBC results (everything else is still in process). She is significantly anemic. This is likely what is causing her fatigue, low blood pressure, and faster heart rate. Is she having any bleeding anywhere? Any blood in stool? Blood in urine? Vaginal bleeding? Etc? Is she still taking iron daily? If so, can we please have her increase this to twice daily. Lets also get some additional labwork, including an ifob. The orders are in (ideally this week). If she gets any worsening symptoms (chest pain, dizziness, shortness of breath, palpitations) she should proceed to the ER. Becky Ireland APRN.RAY [facility]03-25-2025 History of Present illness Narrative* Glenn Mckeon Tech - 01/10/2025 4:50 PM EDT Radiology Service Progress Note PATIENT NAME: Becky Huffman DATE OF SERVICE: January 10, 2025 TIME: 4:29 PM PATIENT IDENTITY VERIFICATION COMPLETED USING TWO (2) IDENTIFIERS: Name and Date of confirmedby patient verbally. FALL SCREENING: Has the patient had 2 falls in the last year or 1 fall with injury or currently using an Ambulatory Assistive Device (Walker, Cane, Wheelchair, Crutches, etc.)? No PATIENT GENDER DATA: Assigned female at . status: : No status:NO. PATIENT RELEVANT IMPLANT DATA REVIEWED: Not Applicable PATIENT PRESENTS WITH AN IMPLANTABLE OR ATTACHED ANNEALER HELPER: No RADIOLOGY DEPARTMENT: General X-ray: Exam(s) Completed: Chest X-Ray PERIPHERAL IV DATA: Not applicable SIGNED BY: Anjum Flaherty January 10, 2025 4:29 PM documented in this encounterOhiohealth [facility]03-25-2025 NoteHNO ID: [id number] Author: GLENN MCKEON Tech Service: ? Author Type: Technologist Type: Progress Notes Filed: 01/10/2025 16:36 Note Text: Radiology Service Progress Note PATIENT NAME: Becky Huffman DATE OF SERVICE: January 10, 2025 TIME: 4:29 PM PATIENT IDENTITY VERIFICATION COMPLETED USING TWO (2) IDENTIFIERS: Name and Date of confirmed by patient verbally. FALL SCREENING: Has the patient had 2 falls in the last year or 1 fall with injury or currently using an Ambulatory Assistive Device (Walker, Cane, Wheelchair, Crutches, etc.)? No PATIENT GENDER DATA: Assigned female at . status: : No status: NO. PATIENT RELEVANT IMPLANT DATA REVIEWED: Not Applicable PATIENT PRESENTS WITH AN IMPLANTABLE OR ATTACHED ANNEALER HELPER: No RADIOLOGY DEPARTMENT: General X-ray: Exam(s) Completed: Chest X-Ray PERIPHERAL IV DATA: Not applicable SIGNED BY: Anjum Flaherty January 10, 2025 4:29 [facility]03-25-2025 Instructions* Patient Instructions* Becky Ireland APRN.ATMOSPHERIC CHEMIST - 01/10/2025 4:10 PM EDT - Discontinue Amlodipine completely. - Continue taking Lisinopril as prescribed. - Drink at least 64 ounces of water daily. - Follow up with your infectious disease specialist tomorrow. - Complete your chest X-ray as scheduled. - Complete your lab tests as scheduled. - Next follow-up appointment on January 23 to recheck blood pressure. documented in this encounterOhiohealth [facility]03-25-2025 NoteHNO ID: [id number] Author: BECKY IRELAND APRN.RAY Service: ? Author Type: Nurse Practitioner Type: Progress Notes Filed: 01/10/2025 18:19 Note Text: This is a 54 year old female who presents today with: Becky is a 54-year-old female with a history of RA, presenting for follow-up of HTN and fatigue. HISTORY OF PRESENT ILLNESS: Hypertension: - Recent hospitalization for infection; was started on amlodipine and lisinopril during hospitalization. She has been getting some lower and orthostatic blood pressures at home. - BP was stable during recent follow-up with Katie at Dr. Vu's office. - Denies urinary symptoms. Fatigue: - Reports persistent low energy levels. - Experiencing decreased appetite; consuming protein shakes when lacking appetite. - Drinking 3-4 glasses of water daily; unsure of exact volume. - Denies SOB. - Occasional dry cough, described as a tickle, occurring when sitting down after standing. RA: - Resumed hydroxychloroquine last night. - Taking anastrozole and a probiotic (acidophilus) at lunchtime. - Reports improvement in shoulder pain, though arms feel heavy. - Scheduled to see infectious disease specialist tomorrow. Physical Therapy: - Last OT session scheduled for ; home healthcare ending this week. - Evaluation for Becky at [facility] scheduled for Thursday. - Reports gradual improvement in shoulder function; able to take showers with assistance. - Family members note increased activity levels. - Expresses frustration with current limitations and desire to return to work. Pleural effusion Noted on recent er visit imaging. No SOB. Occ dry cough. Continues w/ tachycardia. PAST MEDICAL HISTORY: PAST MEDICAL HISTORY Diagnosis Date Breast cancer (HCC) 2019 PMH - PAST MEDICAL HISTORY OF FATIGUE PMH - PAST MEDICAL HISTORY OF achy joints Premenstrual tension syndromes PMS Rheumatoid arthritis involving multiple sites (HCC) 05/20/2021 Rheumatoid arthritis(714.0) PAST SURGICAL HISTORY Procedure Laterality Date COLONOSCOPY, COLORECTAL SCREEN 10/17/2019 Dr. Travis Elias, [facility]; 4mm sessile polyp in proximal sigmoid colon, many diverticula in sigmoid colon, repeat in 5yr's MASTECTOMY HX Bilateral 2019 with tissue flap reconstruction PAST SURGICAL HISTORY OF Right 12/28/2018 lumpectomy PROVIDE CHEMOTHERAPY AGENT 2019 RADIATION THERAPY 2019 REMOVAL OF OVARY(S) Bilateral 02/2020 SALPINGECTOMY Bilateral 02/2020 TONSILLECTOMY PRIMARY/SECONDARY Tonsillectomy ALLERGIES Patient has no known allergies. MEDICATIONS Current Outpatient Medications Medication Sig lisinopril (ZESTRIL) 10 mg tablet Take 1 tablet by mouth once daily. anastrozole (ARIMIDEX) 1 mg tablet Take 1 tablet by mouth once daily. hydrOXYchloroQUINE (PLAQUENIL) 200 mg tablet Take 200 mg by mouth once daily. cholecalciferol, vitamin D3, (VITAMIN D3 ORAL) Take 2,000 Units by mouth once daily. certolizumab pegol (CIMZIA SUBCUTANEOUS) Inject 200 mg subcutaneously. Twice a month calcium carbonate/vitamin D3 (CALCIUM 600 + D ORAL) Take 1 tablet by mouth once daily. leflunomide (ARAVA) 20 mg tablet Take 20 mg by mouth once daily. ferrous sulfate 325 mg (65 mg iron) tablet Take 325 mg by mouth once daily. DAILY MULTIVITAMIN TAB Take 1 tablet by mouth once daily. No current facility-administered medications for this visit. FAMILY HISTORY Problem Relation Age of Onset Cancer Mother throat - radiation Cancer Father LUNG Hypertension Brother Diabetes Brother type 2 Hypertension Brother other (CHF) Maternal Grandfather Hypertension Paternal Grandfather Heart Paternal Grandfather No Known Problems Daughter Diabetes Son Type 1 Cancer Other Cancer Other Social History Tobacco Use Smoking status: Never Smokeless tobacco: Never Vaping Use Vaping status: Never Used Substance Use Topics Alcohol use: No Drug use: No REVIEW OF SYSTEMS Constitutional: (+) fatigue Respiratory: (+) cough, (-) shortness of breath Gastrointestinal: (+) decreased appetite Genitourinary: (-) dysuria, (-) hematuria Musculoskeletal: (+) bilateral shoulder pain, (+) heavy arms EXAM: BP 90/66 (BP Position: Standing) Pulse (!) 125 Resp 16 LMP 12/04/2016 SpO2 95% PHYSICAL EXAM: General Appearance: Well appearing, alert, in no acute distress, well-hydrated, well nourished.. Skin: Skin color, texture, turgor normal, no suspicious rashes or lesions. Head: Normocephalic, no masses, lesions, tenderness or abnormalities. Eyes: Anicteric sclera. Pupils are equally round and reactive to light. Extraocular movements are intact. . Ears: External ears normal, canals clear. Oropharynx: Lips, mucosa, and tongue normal, teeth and gums normal, oropharynx normal. Neck: Supple, no adenopathy; thyroid symmetric, normal size Lungs: Positive findings: decreased right base. Heart: RRR without murmur, gallop, or rubs. No ectopy. (more content not included)...[facility]03-25-2025 History of Present illness Narrative* Becky Ireland, GEMMA.ATMOSPHERIC CHEMIST - 01/10/2025 3:42 PM EDT This is a 54 year old female who presents today with: Becky is a 54-year-old female with a history of RA, presenting for follow-up of HTN and fatigue. HISTORY OF PRESENT ILLNESS: Hypertension: - Recent hospitalization for infection; was started on amlodipine and lisinopril during hospitalization. She has been getting some lower and orthostatic blood pressures at home. - BP was stable during recent follow-up with Katie at Dr. Vu's office. - Denies urinary symptoms. Fatigue: - Reports persistent low energy levels. - Experiencing decreased appetite; consuming protein shakes when lacking appetite. - Drinking 3-4 glasses of water daily; unsure of exact volume. - Denies SOB. - Occasional dry cough, described as a tickle, occurring when sitting down after standing. RA: - Resumed hydroxychloroquine last night. - Taking anastrozole and a probiotic (acidophilus) at lunchtime. - Reports improvement in shoulder pain, though arms feel heavy. - Scheduled to see infectious disease specialist tomorrow. Physical Therapy: - Last OT session scheduled for ; home healthcare ending this week. - Evaluation for Becky at [facility] scheduled for Thursday. - Reports gradual improvement in shoulder function; able to take showers with assistance. - Family members note increased activity levels. - Expresses frustration with current limitations and desire to return to work. Pleural effusion Noted on recent er visit imaging. No SOB. Occ dry cough. Continues w/ tachycardia. PAST MEDICAL HISTORY: PAST MEDICAL HISTORY Diagnosis Date Breast cancer (HCC) 2018 PMH - PAST MEDICAL HISTORY OF FATIGUE PMH - PAST MEDICAL HISTORY OF achy joints Premenstrual tension syndromes PMS Rheumatoid arthritis involving multiple sites ([facility]) 05/20/2021 Rheumatoid arthritis(714.0) PAST SURGICAL HISTORY Procedure Laterality Date COLONOSCOPY, COLORECTAL SCREEN 10/17/2019 Dr. Travis Elias, [facility]; 4mm sessile polyp in proximal sigmoid colon, many diverticula in sigmoid colon, repeat in 5yr's MASTECTOMY HX Bilateral 2019 with tissue flap reconstruction PAST SURGICAL HISTORY OF Right 12/28/2018 lumpectomy PROVIDE CHEMOTHERAPY AGENT 2019 RADIATION THERAPY 2019 REMOVAL OF OVARY(S) Bilateral 02/2020 SALPINGECTOMY Bilateral 02/2020 TONSILLECTOMY PRIMARY/SECONDARY <AGE 10 Tonsillectomy ALLERGIES Patient has no known allergies. MEDICATIONS Current Outpatient Medications Medication Sig lisinopril (ZESTRIL) 10 mg tablet Take 1 tablet by mouth once daily. anastrozole (ARIMIDEX) 1 mg tablet Take 1 tablet by mouth once daily. hydrOXYchloroQUINE (PLAQUENIL) 200 mg tablet Take 200 mg by mouth once daily. cholecalciferol, vitamin D3, (VITAMIN D3 ORAL) Take 2,000 Units by mouth once daily. certolizumab pegol (CIMZIA SUBCUTANEOUS) Inject 200 mg subcutaneously. Twice a month calcium carbonate/vitamin D3 (CALCIUM 600 + D ORAL) Take 1 tablet by mouth once daily. leflunomide (ARAVA) 20 mg tablet Take 20 mg by mouth once daily. ferrous sulfate 325 mg (65 mg iron) tablet Take 325 mg by mouth once daily. DAILY MULTIVITAMIN TAB Take 1 tablet by mouth once daily. No current facility-administered medications for this visit. FAMILY HISTORY Problem Relation Age of Onset Cancer Mother throat - radiation Cancer Father LUNG Hypertension Brother Diabetes Brother type 2 Hypertension Brother other (CHF) Maternal Grandfather Hypertension Paternal Grandfather Heart Paternal Grandfather No Known Problems Daughter Diabetes Son Type 1 Cancer Other Cancer Other Social History Tobacco Use Smoking status: Never Smokeless tobacco: Never Vaping Use Vaping status: Never Used Substance Use Topics Alcohol use: No Drug use: No REVIEW OF SYSTEMS Constitutional: (+) fatigue Respiratory: (+) cough, (-) shortness of breath Gastrointestinal: (+) decreased appetite Genitourinary: (-) dysuria, (-) hematuria Musculoskeletal: (+) bilateral shoulder pain, (+) heavy arms EXAM: BP 90/66 (BP Position: Standing) Pulse (!) 125 Resp 16 LMP 12/04/2016 SpO2 95% PHYSICAL EXAM: General Appearance: Well appearing, alert, in no acute distress, well-hydrated, well nourished.. Skin: Skin color, texture, turgor normal, no suspicious rashes or lesions. Head: Normocephalic, no masses, lesions, tenderness or abnormalities. Eyes: Anicteric sclera. Pupils are equally round and reactive to light. Extraocular movements are intact. . Ears: External ears normal, canals clear. Oropharynx: Lips, mucosa, and tongue normal, teeth and gums normal, oropharynx normal. Neck: Supple, no adenopathy; thyroid symmetric, normal size Lungs: Positive findings: decreased right base. Heart: RRR without murmur, gallop, or rubs. No ectopy. Abdomen: Abdomen soft, non-tender. Bowel sounds normal. No masses, organomegaly. Extremities: No deformities, edema, skin discoloration, clubbing or cyanosis. Good capillary refill. . Neurologic: Gait normal. ASSESSMENT/PLAN 1. Hypotension, unspecified hypotension type (I95.9) - Recent episodes of hypotension noted since hospitalization. - Discontinue amlodipine - Monitor blood pressure readings at home. - Follow-up appointment scheduled for January 23 to reassess blood pressure and determine necessity of continuing lisinopril. 2. Tachycardia (R00.0) - Persistent elevated heart rate noted; differential includes pain and pleural effusion. - Ordered CBC, CMP, magnesium level, and thyroid function tests to rule out anemia, electrolyte imbalances, and thyroid dysfunction. - Follow-up on lab results to determine further management. Stay well hydrated. 3. Pleural effusion on right (J90) - Decreased breath sounds on the right side on auscultation. - Ordered repeat chest X-ray to assess current status of pleural effusion. - If effusion persists, referral to pulmonology for further evaluation and management. 4. Essential (primary) hypertension (I10) - Previously well-controlled; recent fluctuations due to hospitalization and medication changes. - Continue lisinopril; monitor blood pressure readings. - Re-evaluate necessity of lisinopril at follow-up on January 23. 5. Fatigue, unspecified type (R53.83) - Ongoing low energy levels; multifactorial etiology including recent hospitalization, medication changes, and underlying conditions. - Encouraged adequate hydration and well-rounded diet. - Monitor for improvement with medication adjustments and resolution of underlying issues. 6. Pyogenic arthritis of multiple sites, due to unspecified organism (HCC) (M00.9) - Follow-up with infectious disease scheduled for tomorrow. - Resumed hydroxychloroquine; may aid in reducing joint pain. - Monitor for improvement in symptoms and follow recommendations from infectious disease specialist. Discussed treatment plan and patient voices understanding. Patient's questions answered appropriately. Medications and potential side effects were discussed and patient voices understanding. Return to the office as scheduled or as needed for worsening/no improvement. Becky Ireland APRN.CNP The patient consented to the use of [employer] software for draft documentation of the visit consistent with [facility] s Notice of Privacy Practices. documented in this encounterOhiohealth Arthur [facility]03-25-2025 Telephone encounter Note * Telephone Encounter - Becky Ireland APRN.CNP - 01/10/2025 12:34 PM EDT Has appt this afternoon. Becky Ireland APRN.CNP [facility]03-25-2025 Miscellaneous Notes* Telephone Encounter - Becky Ireland APRN.CNP - 01/10/2025 12:34 PM EDT Has appt this afternoon. Becky Ireland APRN.CNP * Telephone Encounter - Nancy Leong LPN - 01/09/2025 10:12 AM EDT Heena with [facility] OT calls today to update pcp on pt's bp: Heena reports when she got to pt's home bp 119/76 HR 122. Pt was sitting at this time. After being up and doing exercises bp 92/68 HR 113. After sitting and resting for awhile bp 88/67. Heena reports she gave pt some water and a cheese stick. Heena reports pt said she has no energy. Pt has an appt tomorrow with pcp. Heena wanted to update pcp before appt. Nancy Leong LPN documented in this encounterOhiohealth Arthur [facility]03-24-2025 Telephone encounter Note * Telephone Encounter - Nancy Leong LPN - 01/09/2025 10:12 AM EDT Heena with [facility] OT calls today to update pcp on pt's bp: Heena reports when she got to pt's home bp 119/76 HR 122. Pt was sitting at this time. After being up and doing exercises bp 92/68 HR 113. After sitting and resting for awhile bp 88/67. Heena reports she gave pt some water and a cheese stick. Heena reports pt said she has no energy. Pt has an appt tomorrow with pcp. Heena wanted to update pcp before appt. Nancy Leong LPN [facility]03-21-2025 Telephone encounter Note* Telephone Encounter - Winter Escoto LPN - 01/06/2025 8:10 AM EDT Patient calling to verify what she was told yesterday, she was fully awake. Went over notes below from Dr Root with understanding. Told patient a pill splitter may work easier for her to break the pills in half. [facility]03-21-2025 Miscellaneous Notes* Telephone Encounter - Winter Escoto LPN - 01/06/2025 8:10 AM EDT Patient calling to verify what she was told yesterday, she was fully awake. Went over notes below from Dr Root with understanding. Told patient a pill splitter may work easier for her to break the pills in half. * Telephone Encounter - Tj Enciso RN - 01/05/2025 5:38 PM EDT Pt called and is notified of providers message and instructions. Pt voices understanding. Tj Enciso RN * Telephone Encounter - Benita Carrera RN - 01/05/2025 4:52 PM EDT Left VM for patient to call back for message below. Left VM for Heena, [facility] OT, to call back for patient message below. Benita Carrera RN * Telephone Encounter - Jignesh Root MD - 01/05/2025 2:29 PM EDT Cut amlodipine to 1/2 tab a day and call bp next time they are there. Push fluids. Call if any moresymptoms. I added the bp meds to her med list * Telephone Encounter - Benita Carrera RN - 01/05/2025 12:51 PM EDT Heena with [facility] OT calling in to report patient concerns after pt OT visit today at around 11:30am. BP today was 95/68 at start of OT visit. After some exercises, and patient was standing up, pt became lightheaded and was sweating. BP after pt sat down was 85/59. Pulse 107-111. Temp in last 24 hours was 99.4. Pt eating and drinking. Taking medications as ordered. Patient has appt with Infectious Disease next Thursday. Nursing will be back next Thursday. After speaking with Heena, this triage nurse called patient to get condition update. Pt states she is feeling good right now. States her episodes seem to happen in middle of a workout, she rests, and then she is okay. Feels good right now. States she ate lunch. No chest pain, SOB, cold/clammy or confusion. Of note, pt saw her PCP on 12/27 and was advised to report to ER after office evaluation. Pt now reports she is taking lisinopril 10mg daily and Amlodipine 10 mg daily, which she takes about 8 am every morning. This is not noted in pt's most recent med list. Pt's PCP is out today. Will ask Dr. Root to review and advise if able, to ensure no other immediaterecommendations are needed. Will also send to Jonathan Ireland CNP for review when returns. Heena is asking for a call back with provider's recommendation. [phone] Benita Carrera RN documented in this encounterOhiohealth [facility]03-20-2025 Telephone encounter Note * Telephone Encounter - Tj Enciso RN - 01/05/2025 5:38 PM EDT Pt called and is notified of providers message and instructions. Pt voices understanding. Tj Enciso RN [facility]03-20-2025 Telephone encounter Note* Telephone Encounter - Benita Carrera RN - 01/05/2025 4:52 PM EDT Left VM for patient to call back for message below. Left VM for Heena [facility] OT, to call back for patient message below. Benita Carrera RN [facility]03-20-2025 Telephone encounter Note* Telephone Encounter - Jignesh Root MD - 01/05/2025 2:29 PM EDT Cut amlodipine to 1/2 tab a day and call bp next time they are there. Push fluids. Call if any moresymptoms. I added the bp meds to her med list [facility]03-20-2025 Telephone encounter Note* Telephone Encounter - Benita Carrera RN - 01/05/2025 12:51 PM EDT Heena with [facility] OT calling in to report patient concerns after pt OT visit today at around 11:30am. BP today was 95/68 at start of OT visit. After some exercises, and patient was standing up, pt became lightheaded and was sweating. BP after pt sat down was 85/59. Pulse 107-111. Temp in last 24 hours was 99.4. Pt eating and drinking. Taking medications as ordered. Patient has appt with Infectious Disease next Thursday. Nursing will be back next Thursday. After speaking with Heena, this triage nurse called patient to get condition update. Pt states she is feeling good right now. States her episodes seem to happen in middle of a workout, she rests, and then she is okay. Feels good right now. States she ate lunch. No chest pain, SOB, cold/clammy or confusion. Of note, pt saw her PCP on 12/27 and was advised to report to ER after office evaluation. Pt now reports she is taking lisinopril 10mg daily and Amlodipine 10 mg daily, which she takes about 8 am every morning. This is not noted in pt's most recent med list. Pt's PCP is out today. Will ask Dr. Root to review and advise if able, to ensure no other immediaterecommendations are needed. Will also send to Jonathan Ireland CNP for review when returns. Heena is asking for a call back with provider's recommendation. [phone] Benita Carrera RN [facility]03-17-2025 Telephone encounter Note* Telephone Encounter - Becky Ireland APRN.CNP - 01/02/2025 2:36 PM EDT Noted. Becky Ireland APRN.CNP [facility]03-17-2025 Miscellaneous Notes* Telephone Encounter - Becky Ireland APRN.CNP - 01/02/2025 2:36 PM EDT Noted. Becky Ireland APRN.CNP * Telephone Encounter - Castro Hall LPN - 01/02/2025 1:45 PM EDT Phoned pt, notified of provider instructions. She states she had appt with Ortho today, they told her everything looked good and to take Tylenol as recommended. She states she is increasing her fluids and also noted that she wasn't using the incentive spirometer like they wanted her to, but she is going to start using that more now. Her temp is coming down, it was normal at Ortho appt today and no rmal at home after Ortho appt. Castro Hall LPN * Telephone Encounter - Becky Ireland APRN.CNP - 01/02/2025 11:47 AM EDT She can use tylenol as needed for fever. Stay well hydrated. How is she feeling? * Telephone Encounter - Winter Escoto LPN - 01/02/2025 10:05 AM EDT Heena from [facility] calling with update on patient heart rate and temp with her visit today. Her heart rate at rest was 113 to 117 and her temp on forehead was 100.1 and 100.2 and patient did oral thermometer was 99. Patient asking what should she be taking for her fever? Please advise documented [facility] Telephone encounter Note * Telephone Encounter - Castro Hall LPN - 01/02/2025 1:45 PM EDT Phoned pt, notified of provider instructions. She states she had appt with Ortho today, they told her everything looked good and to take Tylenol as recommended. She states she is increasing her fluids and also noted that she wasn't using the incentive spirometer like they wanted her to, but she is going to start using that more now. Her temp is coming down, it was normal at Ortho appt today and no rmal at home after Ortho appt. Castro Hall LPN [facility]03-17-2025 Telephone encounter Note* Telephone Encounter - Becky Ireland APRN.CNP - 01/02/2025 11:47 AM EDT She can use tylenol as needed for fever. Stay well hydrated. How is she feeling? [facility]03-17-2025 Telephone encounter Note* Telephone Encounter - Winter Escoto LPN - 01/02/2025 10:05 AM EDT Heena from [facility] calling with update on patient heart rate and temp with her visit today. Her heart rate at rest was 113 to 117 and her temp on forehead was 100.1 and 100.2 and patient did oral thermometer was 99. Patient asking what should she be taking for her fever? Please advise [facility]03-12-2025 Telephone encounter Note* Telephone Encounter - Becky Ireland APRN.CNP - 12/28/2024 6:54 PM EDT Noted. Thank you! -Becky [facility]03-12-2025 Miscellaneous Notes* Telephone Encounter - Becky Ireland APRN.CNP - 12/28/2024 6:54 PM EDT Noted. Thank you! -Becky * Telephone Encounter - Shu Youngblood LPN - 12/28/2024 6:45 PM EDT Talked to Pt. She is doing well. She is doing better. Sent home from hospital. PT was there as wellas . Shu Youngblood LPN * Telephone Encounter - Becky Ireland APRN.CNP - 12/28/2024 6:21 PM EDT Can we please check patient status? Becky Ireland APRN.RAY * Telephone Encounter - Caio Hartley RN - 12/28/2024 11:39 AM EDT Heena- [facility] reporting OT POC: will see patient 1 x week for 1 week, then 2 x week for 2 weeks, then 1 x week for 1 week with focus on shoulders and left wrist. Heena reports pt's BP on arrival was 99/73 (112). Pt stated she is feeling ok. Pt walked and did exercises, and became lightheaded. They stopped and patient drank water and gatorade and ate a snack. The lightheadedness resolved with fluid intake. Re-check BP was 77/58. Re-check BP 15 min later was 79/63 (100). Pt was asymptomatic at this time. Pt reported to Heena she has not eaten much, does not have appetite since home from hospital, and not sleeping much. Heena reports the [employer] will see patient at 1 pm today and will call pcp if BP abnormal. documented in this [facility] Telephone encounter Note * Telephone Encounter - Shu Youngblood LPN - 12/28/2024 6:45 PM EDT Talked to Pt. She is doing well. She is doing better. Sent home from hospital. PT was there as wellas . Shu Youngblood LPN [facility]03-12-2025 Telephone encounter Note* Telephone Encounter - Becky Ireland APRN.CNP - 12/28/2024 6:21 PM EDT Can we please check patient status? Becky Ireland APRN.ATMOSPHERIC CHEMIST [facility]03-12-2025 Telephone encounter Note* Telephone Encounter - Caio Hartley RN - 12/28/2024 11:39 AM EDT Heena- [facility] reporting OT POC: will see patient 1 x week for 1 week, then 2 x week for 2 weeks, then 1 x week for 1 week with focus on shoulders and left wrist. Heena reports pt's BP on arrival was 99/73 (112). Pt stated she is feeling ok. Pt walked and did exercises, and became lightheaded. They stopped and patient drank water and gatorade and ate a snack. The lightheadedness resolved with fluid intake. Re-check BP was 77/58. Re-check BP 15 min later was 79/63 (100). Pt was asymptomatic at this time. Pt reported to Heena she has not eaten much, does not have appetite since home from hospital, and not sleeping much. Heena reports the [employer]ENT will see patient at 1 pm today and will call pcp if BP abnormal. [facility]03-11-2025 Discharge summary [facility] Medical Records Department [address] [place] [address] Emergency Department Summary 12/27/24 MR#: [id number] Acct: [id number] Name: BECKY HUFFMAN Rep #:[id number] : [id number] 54 From: Andrae Estrada MD PCP: ROLANDO GarciaC Status:REG E R Location: ED HPI History of Present Illness Chief Complaint: Fever Informant: patient Narrative Narrative: 54-year-old female was recently discharged from the hospital about 6 days ago for bacteremia and multifocal septic arthritis including both shoulders. She also had a washout of her left wrist in addition to those 2 joints. She has been on oral antibiotics. Her shoulders been sore, they are not getting worse, she can move them but it is painful to do so. She is doing physical therapy buthaving difficulty because she is weak all over. She denies any new symptoms, she was at her PCP for routine postadmission hospital follow-up appointment, emiliehas not been experiencing any fevers or temperatures but when they checked her temperature in the office, she had a fever of 101.6. She said usually when she gets a temperature like that she gets chills and feels poorly and she does not today. She has not taken anything for it and here her temperature is 98.2. Scarlets not yet seen infectious disease infollow-up but she is scheduled to do so at some point within the next couple weeks. She currently is on ciprofloxacin and metronidazole for total of 2 weeks. [facility] Medical History BRCA gene positive Breast cancer metastasized to axillary lymph node Breast cancer, right breast Rheumatoid arthritis Home Medications ?Medication ?Instructions ?Recorded ?Last Taken ?Type multivitamin 1 tab PO DAILY general healt h 11/29/18 Unknown History anastrozole 1 mg tablet 1 mg PO DAILY arthritis 09/19 04/06 Unknown History ferrous sulfate 325 mg (65 mg 325 mg PO DAILY anemia 1 12/14/18 Unknown History iron) tablet leflunomide 10 mg tablet (Arava) 20 mg PO DAILY arthri tis 12/19/19 Unknown History Held on 12/21/24. Instructions: Resume on 01/09/25. calcium 500 mg (as 1 ea PO BID def. 02/21/20 Un known History carbonate)-vitamin D3 15 mcg (600 unit) tablet certolizumab pegol 400 mg/2 mL 200 mg subcut Q2W arthr itis 12/31/20 Unknown History (200 mg/mL x2) subcutaneous syringe kit (Cimzia) hydroxychloroquine 200 mg tablet 200 mg PO .COMPLEX ar thritis 07/09/21 Unknown History Held on 12/21/24. Instructions: Resume on 01/09/25. hydrocortisone 2.5 % topical 1 applic topical BID PRN perineal 12/15/24 Unknown History ointment area leflunomide 20 mg tablet 20 mg PO DAILY arthritis Unknown History Held on 12/21/24. Instructions: Resume on 01/09/25. acetaminophen 500 mg tablet 1,000 mg (2 x 500 mg) PO Q 8 #0 tabs 12/21/24 Unknown Rx amlodipine 10 mg tablet 10 mg PO DAILY #90 tabs 03/12 Unknown Rx ciprofloxacin HCl 500 mg tablet 500 mg PO BID 14 days #28 tabs 12/21/24 Unknown Rx (Cipro) lisinopril 10 mg tablet 10 mg PO DAILY #60 tabs 03/12 Unknown Rx metronidazole 500 mg tablet 500 mg PO TID 14 days #42 tabs 12/21/24 Unknown Rx oxycodone 5 mg tablet 5 mg PO Q4H PRN PRN Pain Sco re 12/21/24 Unknown Rx 6-10 5 days #20 tabs Allergy/AdvReac Type Severity Reaction Status Date / Time No Known Allergies Allergy Verified 12/27/24 10:05 Family History Son Diabetes Grandfather Heart disease Mother Cancer possible throat cancer (Went through radiation) Father Cancer lung Surgical History S/P bilateral salpingo-oophorectomy S/P breast reconstruction S/P bilateral mastectomy Status post right breast lumpectomy (~12/2018) History of tonsillectomy Social History household members: none housing: apartment current occupational status: employed Smoking Status: Never smoker alcohol intake: current alcohol intake frequency: holidays/special occasions only substance use type: does not use caffeine: Yes what type of physical activity do you participate in: walking and aerobics frequency: 5-6 times per week seatbelt use: always do you feel safe at home: Yes additional social history: Patient works at [employer] ROS ROS ED Constitutional Constitutional ED: Reports as per HPI; Denies chills or fever(s) Eyes Eyes: Denies change in vision or diplopia ENT ENT ED: Denies rhinorrhea or sore throat Cardiovascular Cardiovascular: Denies chest pain or palpitations Respiratory/Chest Respiratory/Chest: Denies cough or dyspnea Gastrointestinal Gastrointestinal: Denies abdominal pain, diarrhea, nausea or vomiting Genitourinary Genitourinary ED: Denies dysuria or hematuria Musculoskeletal Musculoskeletal: Reports as per HPI, arthralgias and other Details: Shoulders are most sore, her left wrist is a little sore, all other joints are good. ; Denies back pain or neck pain Integumentary Denies abscess or rash Neurologic Neurologic: Denies headache(s), paresthesias or weakness Psychiatric Psychiatric: Denies anxiety or suicidal thoughts EXAM Physical Exam Const Vital Signs: 12/27/24 10:03 12/27/24 10:05 12/27/24 10:32 Temperature 98.2 F 98.2 F Temperature Source Oral Oral Pulse Rate 115 H 103 H Respiratory Rate 16 17 Respiratory Effort Respiratory Pattern Blood Pressure 99/85 H 113/73 Blood Pressure Mean 89 86 Pulse Ox 97 96 96 Oxygen Delivery Method Room Air Room Air Room Air 12/27/24 11:05 12/27/24 11:19 12/27/24 12:15 Temperature 98.3 F 99 F Temperature Source Oral Oral Pulse Rate 100 102 H Respiratory Rate 16 18 Respiratory Effort Normal Respiratory Pattern Normal Blood Pressure 113/73 121/75 H Blood Pressure Mean 86 90 Pulse Ox 96 95 Oxygen Delivery Method Room Air Room Air 12/27/24 13:00 Temperature 98 F Temperature Source Oral Pulse Rate 99 Respiratory Rate 14 Respiratory Effort Respiratory Pattern Blood Pressure 119/69 Blood Pressure Mean 83 Pulse Ox 94 Oxygen Delivery Method Room Air Positive well nourished and well developed General Appearance ED: well developed and NAD HEENT Reports moist mucous membranes normocephalic and atraumatic Eyes PERRL and EOMs intact bilaterally Neck full ROM and supple Resp normal respiratory effort and clear to auscultation bilaterally Cardio regular rate, regular rhythm and no murmurs GI non-tender and non-distended Auscultation: normoactive bowel sounds Palpation: soft Back/Spine no CVA tenderness General Back: other FROM Extremity normal to inspection Extremity Narrative: Limited range of motion of both shoulders due to pain seen with her left wrist but she is able to do so, she can abduct both shoulders to about 45 degrees and forward flex to 30 or 45 degrees. All laparoscopic incisions of both shoulders and her left dorsal wrist are benign appearing without signs of infections or dehiscence. Sutures are intact. General Extremety ED: Negative for edema, pulses abnormal or tenderness General Extremity: Negative for edema or pulses abnormal Neuro oriented x3, CN's II-XII intact bilaterally and no sensory deficits noted Sensorium / Orientation: awake and alert Motor Exam: strength 5/5 throughout Psych mental status grossly normal Skin no rashes or lesions noted and no wounds Skin Narrative: All operative shoulder and left wrist incisions are benign see above. MDM MDM MDM Narrative Medical decision making narrative: Labs show mild nonspecific leukocytosis, otherwise fairly unremarkable. There is no leftward shift.While examining the patient she was taking deep breaths for pulmonary exam and she stated that she had some discomfort in the right sideof her chest and low back when she did that. Two-view chest x-ray my interpretation shows a right pleural effusion, this is new for her but the left x-ray she had w as in 2019, that I have available to review. Because of her resting tachycardia without fever, I sent a D-dimer is very elevated however shehad recent surgery which makes this elevation fairly nonspecific. Therefore am sending her for CTA to further evaluate the effusion and to evaluate for pulmonary emboli, which can also cause fevers. I reviewed those images and the report which I agree with. It is negative for pulmonary emboli, he confirms pleural effusion with compressive atelectasis, and radiology also noted there sia possible fluid collection with emphysema in the right axilla. Dr. Evangelista is her surgeon so I spoke with the on-call for the group Dr. Arndt, Dr. Evangelista isnot availableright now. He looked at the films/CT. He does not think this is anything that needs to be dealt with emergently or surgically, and less clinically the patient seems to be having a septic shoulder again. At this time, my judgment is that she does not. It is unclear if this fluid collection is just aregular postoperative seroma and it has air there because she just hadsurgery, but she is on appropriate antibiotics for the cultures that grew out haemophilus, and the pleural effusion was minimallysymptomatic, and she is not clinically septic, nor do I think it is an empyema. I discussed all this with Dr. Muñoz. We did do blood cultures. He is in agreement that the patient looks good clinically does not have any new symptoms that she can be discharged home to follow-up with him as scheduled in the office which is within the next week or so. Patient is comfortable with that plan. If shehas symptoms of worsening pleural effusion or empyema, which we discussed, she is encouraged to return to the ER but I do not think that she needs to be admitted for emergent thoracentesis at this time for this. She is comfortable with that plan. History & Record Review Additional record(s) reviewed:: Prior labs (And chest x-ray) Lab Data Attestation: I reviewed the patient's lab results. Labs: Laboratory Results - last 24 hr 12/27/24 12/27/24 11:05 12:00 WBC 12.6 H RBC 3.21 L Hgb 10.0 L Hct 30.2 L MCV 94.1 MCH 31.2 MCHC 33.1 RDW Std Deviation 45.6 H RDW Coeff of Myla 13.2 Plt Count 554 H MPV 9.0 Immature Gran % (Auto) 0.600 Neut % (Auto) 65.6 Lymph % (Auto) 14.6 L [place] % (Auto) 18.0 H Eos % (Auto) 0.2 Baso % (Auto) 1.0 Absolute Neuts (auto) 8.3 H Absolute Lymphs (auto) 1.84 Nucleated RBC % 0 Diff Path Review May foll Platelet Estimate MOD INC Polychromasia 1+ PT 16.4 H INR 1.3 APTT 35.5 D-Dimer Quant (PE/DVT) 4.26 H* Sodium 136 Potassium 4.2 Chloride 98 Carbon Dioxide 25.1 Anion Gap 13 BUN 14 Creatinine 0.56 L Estim Creat Clear Calc 105.01 Est GFR (MDRD) Non-Af 107 BUN/Creatinine Ratio 24.1 H Glucose 100 H Lactic Acid 1.0 Calcium 9.0 Total Bilirubin 0.71 AST 27 ALT 17 Alkaline Phosphatase 124 H Total Protein 7.1 Albumin 3.2 L Globulin 3.9 Albumin/Globulin Ratio 0.8 L Urine Color Yellow Urine Clarity Clear Urine pH 6.0 Ur Specific [place] 1.010 Urine Protein 30 H Urine Glucose (UA) Normal Urine Ketones Negative Urine Occult Blood 10 H Urine Nitrite Negative Urine Bilirubin Negative Urine Urobilinogen Normal Ur Leukocyte Esterase 25 H Urine RBC 0-5 SEEN Urine WBC 0-5 SEEN Ur Squamous Epith Cells 0-5 SEEN Urine Bacteria 1+ Urine Mucus 1+ Radiography Diagnostic Testing: Clinical Impression(s) from Imaging Studies Chest X-Ray 12/27/24 12:20 IMPRESSION: There is a new small right pleural effusion with a right basilar infiltration and/or atelectasis. [facility] 12/27/24 12:29 IMPRESSION: 1. No pulmonary embolism is identified. Some of the distal pulmonary arteries cannot be evaluated due to suboptimal opacification. 2. Right pleural effusion with compressive atelectasis. Partial consolidation of the right upper lobe. 3. Partially visualized soft tissue emphysema and ill-defined hypodensity of the right axilla. Abscess can not be excluded. Reading Location: [facility] Rhythm Strip Rhythm Strip: Sinus Tach Rate: 106 Ectopy: None EKG Initial EKG: Attestation: I personally reviewed and interpreted this EKG as follows: Interpretation: No Acute Injury Pattern and Sinus Tachycardia Comments: Other than sinus tachycardia, normal EKG. Normal intervals and axis. Management Discussion w/another healthcare provider: Marketing Programs Specialist (ortho, ID) Discharge Plan Triage Chief Complaint: Fever ED Provider: Andrae Estrada Dx/Rx/DC Orders Clinical Impression: Pleural effusion on right, Fever, Postoperative seroma Instructions: ED Pleural Effusion Prescriptions: No Action multivitamin tablet 1 tab PO DAILY leflunomide [Arava] 10 mg tablet 20 mg PO DAILY Cimzia 400 mg/2 mL (200 mg/mL x 2) syringe kit 200 mg SC Q2W anastrozole 1 MG tablet 1 mg PO DAILY ferrous sulfate 325 MG tablet 325 mg PO DAILY hydroxychloroquine 200 mg tablet 200 mg PO .COMPLEX Rx Instructions: 200 mg orally; pt takes 200mg at hs calcium carbonate-vitamin D3 1 EACH tablet 1 ea PO BID leflunomide 20 mg tablet 20 mg PO DAILY hydrocortisone 2.5 % ointment 1 applic topical BID PRN (Reason: perineal area) acetaminophen 500 mg Tablet 1,000 mg PO Q8 Qty: 0 0RF lisinopril 10 mg Tablet 10 mg PO DAILY Qty: 60 0RF oxycodone 5 mg Tablet 5 mg PO Q4H PRN PRN (Reason: Pain Score 6-10) 5 Days Qty: 20 0RF ciprofloxacin HCl [Cipro] 500 mg tablet 500 mg PO BID 14 Days Qty: 28 0RF metronidazole 500 mg tablet 500 mg PO TID 14 Days Qty: 42 0RF amlodipine 10 mg tablet 10 mg PO DAILY Qty: 90 0RF Primary Care Provider: Becky Ireland NP Referrals: Travis Muñoz MD [Med Staff - Active Staff] - As soon as possible ([facility] office if/as available) Becky Ireland NP, [facility] [Primary Care Provider] - Print Language: Venezuelan Disposition Disposition: Home, Self Care What to do if you have Problems For any increased pain, shortness of breath, bleeding, nausea or vomiting, chestpain, or any unexpected problems, contact your Primary Care Provider. Call [facility] ([phone]) or report tothe closest Emergency Room. Call 911 if necessary. 12/27/24 1439 Cosigner Signature (if applicable): CC: [facility] Becky Ireland; Dr. Gabriel Evangelista DO; Dr. Travis Muñoz MD ~ Signed [facility]03-11-2025 Discharge summary Author Andraelópez Estrada [facility] Note Date/Time December 27, 2024 2:3 4pm [facility] Medical Records Department [address] [place] [address] Emergency Department Summary 12/27/24 MR#: [id number] Acct: [id number] Name: BECKY HUFFMAN Rep #:[id number] : [id number] From: Andrae Estrada MD PCP: ELIZABETH Garcia Status:REG E R Location: ED [facility] History of Present Illness Chief Complaint: Fever Informant: patient Narrative Narrative: 54-year-old female was recently discharged from the hospital about 6 days ago for bacteremia and multifocal septic arthritis including both shoulders. She also had a washout of her left wrist in addition to those 2 joints. She has been on oral antibiotics. Her shoulders been sore, they are not getting worse, she can move them but it is painful to do so. She is doing physical therapy buthaving difficulty because she is weak all over. She denies any new symptoms, she was at her PCP for routine postadmission hospital follow-up appointment, shehas not been experiencing any fevers or temperatures but when they checked her temperature in the office, she had a fever of 101.6. She said usually when she gets a temperature like that she gets chills and feels poorly and she does not today. She has not taken anything for it and here her temperature is 98.2. Shehas not yet seen infectious disease in follow- up but she is scheduled to do so at some point within the next couple weeks. She currently is on ciprofloxacin and metronidazole for total of 2 weeks. [facility] Medical History BRCA gene positive Breast cancer metastasized to axillary lymph node Breast cancer, right breast Rheumatoid arthritis Home Medications ?Medication ?Instructions ?Recorded ?Last Taken ?Type multivitamin 1 tab PO DAILY general healt h 11/29/18 Unknown History anastrozole 1 mg tablet 1 mg PO DAILY arthritis 09/19 04/06 Unknown History ferrous sulfate 325 mg (65 mg 325 mg PO DAILY anemia 1 12/14/18 Unknown History iron) tablet leflunomide 10 mg tablet (Arava) 20 mg PO DAILY arthri tis 12/19/19 Unknown History Held on 12/21/24. Instructions: Resume on 01/09/25. calcium 500 mg (as 1 ea PO BID def. 02/21/20 Un known History carbonate)-vitamin D3 15 mcg (600 unit) tablet certolizumab pegol 400 mg/2 mL 200 mg subcut Q2W arthr itis 12/31/20 Unknown History (200 mg/mL x2) subcutaneous syringe kit (Cimzia) hydroxychloroquine 200 mg tablet 200 mg PO .COMPLEX ar thritis 07/09/21 Unknown History Held on 12/21/24. Instructions: Resume on 01/09/25. hydrocortisone 2.5 % topical 1 applic topical BID PRN perineal 12/15/24 Unknown History ointment area leflunomide 20 mg tablet 20 mg PO DAILY arthritis Unknown History Held on 12/21/24. Instructions: Resume on 01/09/25. acetaminophen 500 mg tablet 1,000 mg (2 x 500 mg) PO Q 8 #0 tabs 12/21/24 Unknown Rx amlodipine 10 mg tablet 10 mg PO DAILY #90 tabs 03/12 Unknown Rx ciprofloxacin HCl 500 mg tablet 500 mg PO BID 14 days #28 tabs 12/21/24 Unknown Rx (Cipro) lisinopril 10 mg tablet 10 mg PO DAILY #60 tabs 03/12 Unknown Rx metronidazole 500 mg tablet 500 mg PO TID 14 days #42 tabs 12/21/24 Unknown Rx oxycodone 5 mg tablet 5 mg PO Q4H PRN PRN Pain Sco re 12/21/24 Unknown Rx 6-10 5 days #20 tabs Allergy/AdvReac Type Severity Reaction Status Date / Time No Known Allergies Allergy Verified 12/27/24 10:05 Family History Son Diabetes Grandfather Heart disease Mother Cancer possible throat cancer (Went through radiation) Father Cancer lung Surgical History S/P bilateral salpingo-oophorectomy S/P breast reconstruction S/P bilateral mastectomy Status post right breast lumpectomy (~12/2018) History of tonsillectomy Social History household members: none housing: apartment current occupational status: employed Smoking Status: Never smoker alcohol intake: current alcohol intake frequency: holidays/special occasions only substance use type: does not use caffeine: Yes what type of physical activity do you participate in: walking and aerobics frequency: 5-6 times per week seatbelt use: always do you feel safe at home: Yes additional social history: Patient works at [employer], home ROS ROS ED Constitutional Constitutional ED: Reports as per HPI; Denies chills or fever(s) Eyes Eyes: Denies change in vision or diplopia ENT ENT ED: Denies rhinorrhea or sore throat Cardiovascular Cardiovascular: Denies chest pain or palpitations Respiratory/Chest Respiratory/Chest: Denies cough or dyspnea Gastrointestinal Gastrointestinal: Denies abdominal pain, diarrhea, nausea or vomiting Genitourinary Genitourinary ED: Denies dysuria or hematuria Musculoskeletal Musculoskeletal: Reports as per HPI, arthralgias and other Details: Shoulders are most sore, her left wrist is a little sore, all other joints are good. ; Denies back pain or neck pain Integumentary Denies abscess or rash Neurologic Neurologic: Denies headache(s), paresthesias or weakness Psychiatric Psychiatric: Denies anxiety or suicidal thoughts EXAM Physical Exam Const Vital Signs: 12/27/24 10:03 12/27/24 10:05 12/27/24 10:32 Temperature 98.2 F 98.2 F Temperature Source Oral Oral Pulse Rate 115 H 103 H Respiratory Rate 16 17 Respiratory Effort Respiratory Pattern Blood Pressure 99/85 H 113/73 Blood Pressure Mean 89 86 Pulse Ox 97 96 96 Oxygen Delivery Method Room Air Room Air Room Air 12/27/24 11:05 12/27/24 11:19 12/27/24 12:15 Temperature 98.3 F 99 F Temperature Source Oral Oral Pulse Rate 100 102 H Respiratory Rate 16 18 Respiratory Effort Normal Respiratory Pattern Normal Blood Pressure 113/73 121/75 H Blood Pressure Mean 86 90 Pulse Ox 96 95 Oxygen Delivery Method Room Air Room Air 12/27/24 13:00 Temperature 98 F Temperature Source Oral Pulse Rate 99 Respiratory Rate 14 Respiratory Effort Respiratory Pattern Blood Pressure 119/69 Blood Pressure Mean 83 Pulse Ox 94 Oxygen Delivery Method Room Air Positive well nourished and well developed General Appearance ED: well developed and NAD HEENT Reports moist mucous membranes normocephalic and atraumatic Eyes PERRL and EOMs intact bilaterally Neck full ROM and supple Resp normal respiratory effort and clear to auscultation bilaterally Cardio regular rate, regular rhythm and no murmurs GI non-tender and non-distended Auscultation: normoactive bowel sounds Palpation: soft Back/Spine no CVA tenderness General Back: other FROM Extremity normal to inspection Extremity Narrative: Limited range of motion of both shoulders due to pain seen with her left wrist but she is able to do so, she can abduct both shoulders to about 45 degrees and forward flex to 30 or 45 degrees. All laparoscopic incisions of both shoulders and her left dorsal wrist are benign appearing without signs of infections or dehiscence. Sutures are intact. General Extremety ED: Negative for edema, pulses abnormal or tenderness General Extremity: Negative for edema or pulses abnormal Neuro oriented x3, CN's II-XII intact bilaterally and no sensory deficits noted Sensorium / Orientation: awake and alert Motor Exam: strength 5/5 throughout Psych mental status grossly normal Skin no rashes or lesions noted and no wounds Skin Narrative: All operative shoulder and left wrist incisions are benign see above. MDM MDM MDM Narrative Medical decision making narrative: Labs show mild nonspecific leukocytosis, otherwise fairly unremarkable. There is no leftward shift. While examining the patient she was taking deep breaths for pulmonary exam and she stated that she had some discomfort in the right sideof her chest and low back when she did that. Two-view chest x-ray my interpretation shows a right pleural effusion, this is new for her but the left x-ray she had was in 2019, that I have available to review. Because of her resting tachycardia without fever, I sent a D-dimer is very elevated however shehad recent surgery which makes this elevation fairly nonspecific. Therefore am sending her for CTA to further evaluate the effusion and to evaluate for pulmonary emboli, which can also cause fevers. I reviewed those images and the report which I agree with. It is negative for pulmonary emboli, he confirms pleural effusion with compressive atelectasis, and radiology also noted there sia possible fluid collection with emphysema in the right axilla. Dr. Evangelista is her surgeon so I spoke with the on-call for the group Dr. Arndt, Dr. Evangelista isnot available right now. He looked at the films/CT. He does not think this is anything that needs to be dealt with emergently or surgically, and less clinically the patient seems to be having a septic shoulder again. At this time, my judgment is that she does not. It is unclear if this fluid collection is just a regular postoperative seroma and it has air there because she just hadsurgery, but she is on appropriate antibiotics for the cultures that grew out haemophilus, and the pleural effusion was minimally symptomatic, and she is not clinically septic, nor do I think it is an empyema. I discussed all this with Dr. Muñoz. We did do blood cultures. He is in agreement that the patient looks good clinically does not have any new symptoms that she can be discharged home to follow-up with him as scheduled in the office which is within the next week or so. Patient is comfortable with that plan. If she has symptoms of worsening pleural effusion or empyema, which we discussed, she is encouraged to return to the ER but I do not think that she needs to be admitted for emergent thoracentesis at this time for this. She is comfortable with that plan. History & Record Review Additional record(s) reviewed:: Prior labs (And chest x-ray) Lab Data Attestation: I reviewed the patient's lab results. Labs: Laboratory Results - last 24 hr 12/27/24 12/27/24 11:05 12:00 WBC 12.6 H RBC 3.21 L Hgb 10.0 L Hct 30.2 L MCV 94.1 MCH 31.2 MCHC 33.1 RDW Std Deviation 45.6 H RDW Coeff of Myla 13.2 Plt Count 554 H MPV 9.0 Immature Gran % (Auto) 0.600 Neut % (Auto) 65.6 Lymph % (Auto) 14.6 L [place] % (Auto) 18.0 H Eos % (Auto) 0.2 Baso % (Auto) 1.0 Absolute Neuts (auto) 8.3 H Absolute Lymphs (auto) 1.84 Nucleated RBC % 0 Diff Path Review May foll Platelet Estimate MOD INC Polychromasia 1+ PT 16.4 H INR 1.3 APTT 35.5 D-Dimer Quant (PE/DVT) 4.26 H* Sodium 136 Potassium 4.2 Chloride 98 Carbon Dioxide 25.1 Anion Gap 13 BUN 14 Creatinine 0.56 L Estim Creat Clear Calc 105.01 Est GFR (MDRD) Non-Af 107 BUN/Creatinine Ratio 24.1 H Glucose 100 H Lactic Acid 1.0 Calcium 9.0 Total Bilirubin 0.71 AST 27 ALT 17 Alkaline Phosphatase 124 H Total Protein 7.1 Albumin 3.2 L Globulin 3.9 Albumin/Globulin Ratio 0.8 L Urine Color Yellow Urine Clarity Clear Urine pH 6.0 Ur Specific [place] 1.010 Urine Protein 30 H Urine Glucose (UA) Normal Urine Ketones Negative Urine Occult Blood 10 H Urine Nitrite Negative Urine Bilirubin Negative Urine Urobilinogen Normal Ur Leukocyte Esterase 25 H Urine RBC 0-5 SEEN Urine WBC 0-5 SEEN Ur Squamous Epith Cells 0-5 SEEN Urine Bacteria 1+ Urine Mucus 1+ Radiography Diagnostic Testing: Clinical Impression(s) from Imaging Studies Chest X-Ray 12/27/24 12:20 IMPRESSION: There is a new small right pleural effusion with a right basilar infiltration and/or atelectasis. Reading Location: [facility]-IR-1 Chest CTA 12/27/24 12:29 IMPRESSION: 1. No pulmonary embolism is identified. Some of the distal pulmonary arteries cannot be evaluated due to suboptimal opacification. 2. Right pleural effusion with compressive atelectasis. Partial consolidation of the right upper lobe. 3. Partially visualized soft tissue emphysema and ill-defined hypodensity of the right axilla. Abscess can not be excluded. Reading Location: [facility] Rhythm Strip Rhythm Strip: Sinus Tach Rate: 106 Ectopy: None EKG Initial EKG: Attestation: I personally reviewed and interpreted this EKG as follows: Interpretation: No Acute Injury Pattern and Sinus Tachycardia Comments: Other than sinus tachycardia, normal EKG. Normal intervals and axis. Management Discussion w/another healthcare provider: Marketing Programs Specialist (ortho, ID) Discharge Plan Triage Chief Complaint: Fever ED Provider: Andrae Estrada Dx/Rx/DC Orders Clinical Impression: Pleural effusion on right, Fever, Postoperative seroma Instructions: ED Pleural Effusion Prescriptions: No Action multivitamin tablet 1 tab PO DAILY leflunomide [Arava] 10 mg tablet 20 mg PO DAILY Cimzia 400 mg/2 mL (200 mg/mL x 2) syringe kit 200 mg SC Q2W anastrozole 1 MG tablet 1 mg PO DAILY ferrous sulfate 325 MG tablet 325 mg PO DAILY hydroxychloroquine 200 mg tablet 200 mg PO .COMPLEX Rx Instructions: 200 mg orally; pt takes 200mg at hs calcium carbonate-vitamin D3 1 EACH tablet 1 ea PO BID leflunomide 20 mg tablet 20 mg PO DAILY hydrocortisone 2.5 % ointment 1 applic topical BID PRN (Reason: perineal area) acetaminophen 500 mg Tablet 1,000 mg PO Q8 Qty: 0 0RF lisinopril 10 mg Tablet 10 mg PO DAILY Qty: 60 0RF oxycodone 5 mg Tablet 5 mg PO Q4H PRN PRN (Reason: Pain Score 6-10) 5 Days Qty: 20 0RF ciprofloxacin HCl [Cipro] 500 mg tablet 500 mg PO BID 14 Days Qty: 28 0RF metronidazole 500 mg tablet 500 mg PO TID 14 Days Qty: 42 0RF amlodipine 10 mg tablet 10 mg PO DAILY Qty: 90 0RF Primary Care Provider: Becky Ireland NP Referrals: Travis Muñoz MD [Med Staff - Active Staff] - As soon as possible ([place] office if/as available) Becky Ireland NP, PIN CHASER-C [Primary Care Provider] - Print Language: Venezuelan Disposition Disposition: Home, Self Care What to do if you have Problems For any increased pain, shortness of breath, bleeding, nausea or vomiting, chestpain, or any unexpected problems, contact your Primary Care Provider. Call [facility] ([phone]) or report to the closest Emergency Room. Call 911 if necessary. 12/27/24 1434 <Electronically signed by Andrae Estrada MD> Cosigner Signature (if applicable): CC: PIN CHASER-C Becky Ireland; Dr. Gabriel Evangelista DO; Dr. Travis Muñoz MD ~ Signed [facility] Work Phone: [phone]) 593-697103-11-2025 Radiology Diagnostic study note [facility] Imaging Services [address] [place], [place] [address] CTA Chest W/WO Contrast MR#: [id number] Acct: [id number] Name: YESENIAMICHELLEJuvencio FELIZ Rep #: [id number] : 1970 F 54 From: Mitzy Pearson MD PCP: ELIZABETH Garcia Status: REG E R Study:CTA Chest W/WO Contrast Date of Exam: 12/27/24 Exam# [id number] Ordering Dr: Sintia Estrada MD EXAM: CT Angiography Chest Without and With Intravenous Contrast CLINICAL INDICATION: CP RIGHT, PLEURAL EFFUSION, ELEVATED D-DIMER TECHNIQUE: Axial computed tomographic angiography images of the chest without and with intravenous contrast. This CT exam was performed using one or more of the following dose reduction techniques: automated exposure control,adjustment of the mA and/or kV according to patient size, and/or use of iterative reconstruction technique. MIP reconstructed images were created and reviewed. COMPARISON: No relevant prior studies available. FINDINGS: LIMITATIONS: Suboptimal opacification of the pulmonary arteries. PULMONARY ARTERIES: No pulmonary embolism is identified. Some of the distal pulmonary arteries cannot be evaluated due to suboptimal opacification. AORTA: Scattered calcified atherosclerotic disease of aorta. No thoracic aortic aneurysm. LUNGS AND PLEURAL SPACES: Right pleural effusion with compressive atelectasis. Partial consolidation of the right upper lobe. No pneumothorax. HEART: Unremarkable. No cardiomegaly. No significant pericardial effusion. No evidence of RV dysfunction. BONES/JOINTS: No acute fracture. No dislocation. SOFT TISSUES: Partially visualized soft tissue emphysema and ill-defined hypodensity of the right axilla. Abscess can not be excluded. LYMPH NODES: Unremarkable. No enlarged lymph nodes. CT/CTA Chest W/WO Contrast IMPRESSION: 1. No pulmonary embolism is identified. Some of the distal pulmonary arteries cannot be evaluated due to suboptimal opacification. 2. Right pleural effusion with compressive atelectasis. Partial consolidation of the right upper lobe. 3. Partially visualized soft tissue emphysema and ill-defined hypodensity of the right axilla. Abscess can not be excluded. Reading Location: [facility] CC: ELIZABETH Ireland; Dr. Andrae Estrada MD ~ Tourist Adviser: Signed [facility]03-11-2025 Radiology Diagnostic study note [facility] Imaging Services [address] [place] [id number] Chest PA and Lateral MR#: [id number] Acct: [id number] Name: BECKY HUFFMAN Rep #: [id number] : 1970 F 54 From: Adi Heard MD PCP: ELIZABETH Garcia Status: REG E R Study:Chest PA and Lateral Date of Exam: 12/27/24 Exam# [id number] Ordering Dr: Sintia Estrada MD PROCEDURE: CHEST PA AND LATERAL REASON FOR EXAM: FEVER TECHNIQUE: Frontal and lateral views of the chest. COMPARISON: Comparison is made with prior study dated February 02, 2019. FINDINGS: EKG electrodes are seen. Surgical clips are seen in the right axilla. Surgical clips are seen overlying the left breast. There is a new small right pleural effusion with right basilar atelectasis and/or infiltrate. RAD/Chest PA and Lateral IMPRESSION: There is a new small right pleural effusion with a right basilar infiltration and/or atelectasis. Reading Location: [place] [address] CC: ELIZABETH Ireland; Dr. Andrae Estrada MD ~ Tourist Adviser: Signed [facility]03-11-2025 NoteHNO ID: [id number] Author: BECKY IRELAND APRN.ATMOSPHERIC CHEMIST Service: ? Author Type: Nurse Practitioner Type: Progress Notes Filed: 12/27/2024 10:01 Note Text: Pt presents today for ER follow-up. Provider Documentation Becky Huffman is a 54 year old female here today for a follow up from recent hospitalization. I have reviewed the patient's hospital course including discharge summary, discharge medications , and follow up needs with the patient and any family members present at today's visit. HPI Patient had presented with URI type symptoms. Sore throat. Come in with urgent care on 12/12. Neg strep. Told strain of influenza. Started prednisone. Started more joint pain. Came in to FP on 12/16. Had some additional testing. Symptoms worsened that night and she ended up proceeding to the ER. She ended up being admitted and diagnosed with septic arthritis of the left wrist as well as bilateral shoulder septic arthritis. She had H. influenzae bacteremia and underwent left wrist irrigation and debridement with synovectomy on 05/16/2025. She had left shoulder arthroscopic irrigation and debridements of synovitis capsular tissue, subacromial bursa, and labral fraying on 12/17/2024. She rates shoulder arthroscopic irrigation and debridement on 12/19/2024. She was following with Dr. Evangelista with orthopedic surgery. She was also following with Dr. Romero for an infectious disease. She was discharged on 12/21/24 with home health. She is currently on cipro 500 mg BID and metronidazole 500 mg TID. She has been sleeping a lot. [place] like best night of sleep last night. + weakness. Has a follow-up with Dr. Evangelista on Thursday. She doesn't think fever at home. She is using oxycodone for pain. She has a mild cough -- tickle. She does have a hx of RA and her immunosuppressants have been placed on hold. PHYSICAL EXAMINATION BP 122/76 Pulse 119 Resp 16 LMP 12/04/2016 SpO2 93% GENERAL: pale. HEART: regular rate and rhythm. No murmur, rubs or gallops. Skin: sutures intact to left wrist, right and left shoulder. Well approximated and no drainage/redness. Lungs: Decreased right base. ABDOMEN: soft, non-tender, non-distended, no masses or organomegaly EXTREMITIES: no lower extremity edema. No skin discoloration. HEENT: Normocephalic, atraumatic and Extraocular muscles intact EXTREMITY: no lower extremity edema. No skin discoloration. NEURO: moves extremities equally ASSESSMENT/PLAN: 1. Fever in other diseases - ICD9: 780.61, ICD10: R50.81 (primary diagnosis) Pt with new onset of fever. Oxygen level 93% RA. Mild cough. L/S decreased right base. Concern that with fever, she is either failing outpatient oral antibiotics, or that she has developed pneumonia. Discussed that she really needs to return to ER for further eval. Patient agreeable to plan. Daughter to transport. Report to ER. 2. 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 Discussed treatment plan and patient voices understanding. Patient's questions answered appropriately. Medications and potential side effects were discussed and patient voices understanding. Return to the office as scheduled or as needed for worsening/no improvement. Becky Ireland [facility]N.[facility] History of Present illness Narrative* Becky Ireland APRN.ATMOSPHERIC CHEMIST - 12/27/2024 9:11 AM EDT Pt presents today for ER follow-up. Provider Documentation Becky Huffman is a 54 year old female here today for a follow up from recent hospitalization. I have reviewed the patient's hospital course including discharge summary, discharge medications , and follow up needs with the patient and any family members present at today's visit. HPI Patient had presented with URI type symptoms. Sore throat. Come in with urgent care on 12/12. Neg strep. Told strain of influenza. Started prednisone. Started more joint pain. Came in to FP on 12/16. Had some additional testing. Symptoms worsened that night and she ended up proceeding to the ER. She ended up being admitted and diagnosed with septic arthritis of the left wrist as well as bilateral shoulder septic arthritis. She had H. influenzae bacteremia and underwent left wrist irrigation and debridement with synovectomy on 05/16/2025. She had left shoulder arthroscopic irrigation and debridements of synovitis capsular tissue, subacromial bursa, and labral fraying on 12/17/2024. She rates shoulder arthroscopic irrigation and debridement on 12/19/2024. She was following with Dr. Evangelista with orthopedic surgery. She wasalso following with Dr. Romero for an infectious disease. She was discharged on 12/21/24 with home health. She is currently on cipro 500 mg BID and metronidazole 500 mg TID. She has been sleeping a lot. [place] like best night of sleep last night. + weakness. Has a follow-up with Dr. Evangelista on Thursday. She doesn't think fever at home. She is using oxycodone for pain. She has a mild cough -- tickle. She does have a hx of RA and her immunosuppressants have been placed on hold. PHYSICAL EXAMINATION BP 122/76 Pulse 119 Resp 16 LMP 12/04/2016 SpO2 93% GENERAL: pale. HEART: regular rate and rhythm. No murmur, rubs or gallops. Skin: sutures intact to left wrist, right and left shoulder. Well approximated and no drainage/redness. Lungs: Decreased right base. ABDOMEN: soft, non-tender, non-distended, no masses or organomegaly EXTREMITIES: no lower extremity edema. No skin discoloration. HEENT: Normocephalic, atraumatic and Extraocular muscles intact EXTREMITY: no lower extremity edema. No skin discoloration. NEURO: moves extremities equally ASSESSMENT/PLAN: 1. Fever in other diseases - ICD9: 780.61, ICD10: R50.81 (primary diagnosis) Pt with new onset of fever. Oxygen level 93% RA. Mild cough. L/S decreased right base. Concern that with fever, she is either failing outpatient oral antibiotics, or that she has developed pneumonia. Discussed that she really needs to return to ER for further eval. Patient agreeable to plan. Daughter to transport. Report to ER. 2. 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 Discussed treatment plan and patient voices understanding. Patient's questions answered appropriately. Medications and potential side effects were discussed and patient voices understanding. Return to the office as scheduled or as needed for worsening/no improvement. Becky Ireland APRN.ATMOSPHERIC CHEMIST documented in this encounterOhiohealth [facility]25 NoteHNO ID: [id number] Author: ARACELI BASURTO MA Service: ? Author Type: Counter Sales Representative Type: Progress Notes Filed: 12/26/2024 11:59 Note Text: TRANSITION CARE MANAGEMENT (TCM) INITIAL CONTACT Counter Sales Representative Outreach Provider Action/FYI: 7 day TCM TCM was started on 12/23/24, pt needed called back due to in middle of her PT session. Pt is getting [facility] PT at home for her shoulder. Has appt to follow up with Becky 12/27/24. Initial contact with patient post discharge, spoke to patient 12/23/24 Patient identified by name and . TRANSITION CARE MANAGEMENT INITIAL OUTREACH DOCUMENTATION: 12/23/2024 Date of Outreach: Outreach Attempt 1: Contact Made Date of Discharge 12/21/2024 SUMMARY: -Pt discharged from [facility] on 12/21/24. -Admitted for: 1) Septic arthritis of wrist, left 2) Influenza A Do you have a hospital follow up appointment with your PCP? Appointment on 12/27/24 with Becky Ireland. Yes. Remind patient of appointment date, time, and location. If not within 14 calendar days of discharge - please reschedule accordingly. MEDICATIONS: Many patients have questions or concerns about their medications once they are home. Were you prescribed any new medications? No Were you told to hold any medications? Yes Lefluomide 10 mg Hydroxychloroquine 200 mg Were any of your medications discontinued? No Do you have any questions about getting or taking your medications? No Your discharge instructions/After visit Summary (AVS) are important in guiding you through the recovery process. Is there anything I might help you understand? No Do you have all the necessary equipment and supplies at home? Yes Medical records from recent hospitalization: [facility] History of Present illness Narrative* Araceli Basurto MA - 12/26/2024 11:47 AM EDT TRANSITION CARE MANAGEMENT (TCM) INITIAL CONTACT Counter Sales Representative Outreach Provider Action/FYI: 7 day TCM TCM was started on 12/23/24, pt needed called back due to in middle of her PT session. Pt is getting [facility] PT at home for her shoulder. Has appt to follow up with Becky 12/27/24. Initial contact with patient post discharge, spoke to patient 12/23/24 Patient identified by name and . TRANSITION CARE MANAGEMENT INITIAL OUTREACH DOCUMENTATION: 12/23/2024 Date of Outreach: Outreach Attempt 1: Contact Made Date of Discharge 12/21/2024 SUMMARY: -Pt discharged from [facility] on 12/21/24. -Admitted for: 1) Septic arthritis of wrist, left 2) Influenza A Do you have a hospital follow up appointment with your PCP? Appointment on 12/27/24 with Becky Ireland. Yes. Remind patient of appointment date, time, and location. If not within 14 calendar days of discharge - please reschedule accordingly. MEDICATIONS: Many patients have questions or concerns about their medications once they are home. Were you prescribed any new medications? No Were you told to hold any medications? Yes Lefluomide 10 mg Hydroxychloroquine 200 mg Were any of your medications discontinued? No Do you have any questions about getting or taking your medications? No Your discharge instructions/After visit Summary (AVS) are important in guiding you through the recovery process. Is there anything I might help you understand? No Do you have all the necessary equipment and supplies at home? Yes Medical records from recent hospitalization: Placed for provider to review * Benita Carrera RN - 12/23/2024 9:19 AM EST Pt unable to complete TCM at this time, involved with current home health visit at this time. Please contact patient back at a later time. Benita Carrera RN documented in this encounterOhiohealth [facility] Hospital Discharge instructions Additional Instructions Increase fluids at home, Gatorade, Powerade, water. You are given 2 L of IV fluid for hydration. Your hemoglobin level was 8.5. 3 weeks ago, your hemoglobin level is 10. Follow-up with your GI office for further evaluation, and possible repeat endoscopy and colonoscopy if needed. Education was given to you for GI bleeding just for educational purposes only. Follow-up with GI physician for further testing as discussed.[facility] Work Phone: 1(351) 270-156303-07-2025 Telephone encounter Note* Telephone Encounter - Jignesh Root MD - 12/23/2024 11:58 AM EST noted [facility] Work Phone: 1(169) 791-281303-07-2025 Miscellaneous Notes* Telephone Encounter - Jignesh Root MD - 12/23/2024 11:58 AM EST noted * Telephone Encounter - Winter Escoto LPN - 12/23/2024 10:03 AM EST Rebeka from [facility] Home Health calling with [facility] plan of care 1 visit weekly for 4 weeks. No need to return call. documented in this encounterOhiohealth [facility]03-07-2025 Telephone encounter Note * Telephone Encounter - Winter Escoto LPN - 12/23/2024 10:03 AM EST Rebeka from [facility] Home Health calling with [facility] plan of care 1 visit weekly for 4 weeks. No need to return call. [facility]03-07-2025 NoteHNO ID: [id number] Author: BENITA CARRERA RN Service: ? Author Type: Registered Nurse Type: Progress Notes Filed: 12/26/2024 11:59 Note Text: Pt unable to complete TCM at this time, involved with current home health visit at this time. Please contact patient back at a later time. [facility]ita Carrera RNCh[facility]ic[facility]03-07-2025 Telephone encounter Note* Telephone Encounter - Benita Carrera RN - 12/23/2024 9:16 AM EST Hospital F/U appointment made for patient for 12/27/24. Patient having HH visit during time of this call. Unable to complete TCM information at this time. Benita Carrera RN [facility]03-07-2025 Miscellaneous Notes* Telephone Encounter - Benita Carrera RN - 12/23/2024 9:16 AM EST Hospital F/U appointment made for patient for 12/27/24. Patient having HH visit during time of this call. Unable to complete TCM information at this time. Benita Carrera RN * Telephone Encounter - Benita Carrera RN - 12/23/2024 9:04 AM EST Maren with [facility] HH notified. Benita Carrera RN * Telephone Encounter - Jignesh Root MD - 12/23/2024 8:03 AM EST Ok, will need a hospital follow up with one of us. Will need to be 40 minutes * Telephone Encounter - Benita Carrera RN - 12/22/2024 3:16 PM EST Maren with [facility] calling and states patient discharged from [facility] yesterday with orders for Nursing, PT and OT. Asking if provider will sign and follow patient? Call Maren back at [phone]. Benita Carrera RN documented in this encounterOhiohealth [facility]03-07-2025 Telephone encounter Note * Telephone Encounter - Benita Carrera RN - 12/23/2024 9:04 AM EST Maren with [facility] notified. Benita Carrera RN [facility]03-07-2025 Telephone encounter Note* Telephone Encounter - Jignesh Root MD - 12/23/2024 8:03 AM EST Ok, will need a hospital follow up with one of us. Will need to be 40 minutes [facility] Work Phone: 1(590) 406-110403-07-2025 NotePatient Outreach (FAMPWS) BECKY HUFFMAN ([id number]) 1970 F Date Time Provider Department 12/23/24 BECKY IRELAND During your visit today, we recorded the following information about you: Benita Carrera RN 12/26/2024 11:59 AM Signed Pt unable to complete TCM at this time, involved with current home health visit at this time. Please contact patient back at a later time. CHEIKH Sutton Kathryn, MA 12/26/2024 11:59 AM Signed TRANSITION CARE MANAGEMENT (TCM) INITIAL CONTACT Counter Sales Representative Outreach Provider Action/FYI: 7 day TCM TCM was started on 12/23/24, pt needed called back due to in middle of her PT session. Pt is getting [facility] PT at home for her shoulder. Has appt to follow up with Becky 12/27/24. Initial contact with patient post discharge, spoke to patient 12/23/24 Patient identified by name and . TRANSITION CARE MANAGEMENT INITIAL OUTREACH DOCUMENTATION: 12/23/2024 Date of Outreach: Outreach Attempt 1: Contact Made Date of Discharge 12/21/2024 SUMMARY: -Pt discharged from [facility] on 12/21/24. -Admitted for: 1) Septic arthritis of wrist, left 2) Influenza A Do you have a hospital follow up appointment with your PCP? Appointment on 12/27/24 with Becky Ireland. Yes. Remind patient of appointment date, time, and location. If not within 14 calendar days of discharge - please reschedule accordingly. MEDICATIONS: Many patients have questions or concerns about their medications once they are home. Were you prescribed any new medications? No Were you told to hold any medications? Yes Lefluomide 10 mg Hydroxychloroquine 200 mg Were any of your medications discontinued? No Do you have any questions about getting or taking your medications? No Your discharge instructions/After visit Summary (AVS) are important in guiding you through the recovery process. Is there anything I might help you understand? No Do you have all the necessary equipment and supplies at home? Yes Medical records from recent hospitalization: Placed for provider to review Allergies As of Date: 12/23/2024 (No Known Allergies) Date Reviewed: 12/15/2024 Reviewed by: Hilda Umana APRN.ATMOSPHERIC CHEMIST - Fully Assessed Reason for Visit: Transitions of Care [Other] Cmt: [facility] Discharged 12/21/24 Prescriptions as of 12/26/2024 - anastrozole (ARIMIDEX) 1 mg tablet Take 1 tablet by mouth once daily. - hydrOXYchloroQUINE (PLAQUENIL) 200 mg tablet Take 200 mg by mouth once daily. - cholecalciferol, vitamin D3, (VITAMIN D3 ORAL) Take 2,000 Units by mouth once daily. - certolizumab pegol (CIMZIA SUBCUTANEOUS) Inject 200 mg subcutaneously. Twice a month - calcium carbonate/vitamin D3 (CALCIUM 600 + D ORAL) Take 1 tablet by mouth once daily. - leflunomide (ARAVA) 20 mg tablet Take 20 mg by mouth once daily. - ferrous sulfate 325 mg (65 mg iron) tablet Take 325 mg by mouth once daily. - DAILY MULTIVITAMIN TAB Take 1 tablet by mouth once daily. Problem List As Of Date 12/23/2024 Noted Resolved Climacteric [N95.1] 12/16/2013 Malignant neoplasm of central portion of right *12/23/2018 Rheumatoid arthritis involving multiple sites (*05/20/2021 Encounter Status:Closed by ARACELI BASURTO on 12/26/24[facility] 12-22-[facility] Telephone encounter Note* Telephone Encounter - Benita Carrera RN - 12/22/2024 3:16 PM EST Maren with [facility] HH calling and states patient discharged from [facility] yesterday with orders for Nursing, PT and OT. Asking if provider will sign and follow patient? Call Maren back at [phone]. Benita Carrera RN [facility]03-06-2025 Telephone encounter Note* Telephone Encounter - Winter Escoto LPN - 12/22/2024 2:22 PM EST Patient returned call and went over notes below from Shadia Umana NP. Patient said concerning the flu she is feeling better. She was in [facility] ER and has had 3 surgeries one on her left wrist, her right shoulder then her left shoulder, infection in the joints. She has some PT to get though now. [facility]03-06-2025 Miscellaneous Notes* Telephone Encounter - Winter Escoto LPN - 12/22/2024 2:22 PM EST Patient returned call and went over notes below from Shadia Umana NP. Patient said concerning the flu she is feeling better. She was in [facility] ER and has had 3 surgeries one on her left wrist, her right shoulder then her left shoulder, infection in the joints. She has some PT to get though now. * Telephone Encounter - Sarah Corbin LPN - 12/22/2024 2:08 PM EST Left message for pt to return call. * Telephone Encounter - Hilda Umana APRN.CNP - 12/22/2024 1:14 PM EST Please let her know I received her lab results. How is she feeling? I would like to redraw some of her inflammatory markers if she is feeling better. Hilda Umana APRN.CNP documented in this encounterOhiohealth [facility]03-06-2025 Telephone encounter Note * Telephone Encounter - Sarah Corbin LPN - 12/22/2024 2:08 PM EST Left message for pt to return call. [facility]03-06-2025 Telephone encounter Note* Telephone Encounter - Hilda Umana APRN.CNP - 12/22/2024 1:14 PM EST Please let her know I received her lab results. How is she feeling? I would like to redraw some of her inflammatory markers if she is feeling better. Hilda Umana APRN.RAY [facility]03-05-2025 [facility] Medical Records Department [address] [place] [address] Discharge Summary 12/21/24 1327 MR#: [id number] Acct: [id number] Name: BECKY HUFFMAN Rep #: [id number] : 1970 54 From: Mauricio Chirinos MD PCP: ELIZABETH Garcia Status:ADM IN [place] [facility] [id number] Providers Date of Admission: 12/15/24 Date of Discharge: 12/21/24 Primary Care Physician: ELIZABETH Garcia Consultations 12/19/24 07:00 Consult: Infectious Disease Routine Consulting Provider: Travis Muñoz Reason for Consult: wrist and shoulder septic arthritis EMERGENT Consult: No MD Notified: Yes Date Notified: 12/19/24 Time Notified: 07:01 Method of Notification: Text Reason For Visit: SEPTIC ARTHRITIS OF THE LEFT WRIST Diagnosis Discharge Diagnosis (1) Septic arthritis of wrist, left: Status: Acute Code(s): M00.9 - Pyogenic arthritis, unspecified Qualifiers: Septic arthritis organism: due to unspecified organism Qualified Code(s): M00.9 - Pyogenic arthritis, unspecified (2) Influenza A: Status: Acute Code(s): J10.1 - Influenza due to other identified influenza virus with other respiratory manifestations Plan Patient is a 54-year-old lady with history of rheumatoid arthritis on leflunomide and hydroxychloroquine presented with flulike symptoms as well as pain in the left hand and arm and assessment of septic arthritis of the left wrist with left upper extremity cellulitis and possible septic arthritis of the right shoulder made admitted to regular nursing floor for further management 1. Septic arthritis of the left wrist as well as bilateral shoulder septic arthritis ???Patient had H. influenzae bacteremia patient underwent Left wrist irrigation and debridement with synovectomy on 12/16/2024, left shoulder arthroscopic irrigation and debridement of synovitis, capsular tissue, subacromial bursa and labral fraying on 12/17/2024, right shoulder arthroscopic irrigation and debridement on 12/19/2024. Procedures performed by Dr. Evangelista with orthopedic surgery. Patient wound cultures grew haemophilus influenza with bacteremia. She also grew bacillus species from her right shoulder. ID on board. Patient remains on Unasyn -Discharge home on ciprofloxacin as well as Flagyl for 2 weeks per recommendations from Dr. Muñoz 2. Acute influenza A infection ??? Complicating care symptoms started 6 days prior to admission patient was outside the window for Tamiflu plan is to treat symptomatically 3. Rheumatoid arthritis ??? Patient is on leflunomide as well as hydroxychloroquine and certolizumab her medications held given her active infection ??? Medications held for 3 weeks plan is to resume following the completion of antibiotic therapy 4. Anemia ??? Secondary to chronic disorder monitoring H H and transfuse if patient becomes symptomatic or hemoglobin falls below 7 5. History of right breast CVA ??? Diagnosed in 2018 patient underwent double mastectomy in 2019. Currently on anastrozole 6. DVT prophylaxis ??? On enoxaparin Time spent in the patient's overall evaluation,decision-making process, review of diagnostic data, adjustment of management, discussion with other providers, nursing nursing and ancillary staff involved in patient's care documentation, 50 Minutes Medications at Discharge Home Medications multivitamin 1 tab PO DAILY general health 11/29/18 anastrozole 1 mg tablet 1 mg PO DAILY arthritis 10/13/19 ferrous sulfate 325 mg (65 mg iron) tablet 325 mg PO DAILY anemia 10/13/19 leflunomide 10 mg tablet (Arava) 20 mg PO DAILY arthritis 12/19/19 Held on 12/21/24. Instructions: Resume on 01/09/25. calcium 500 mg (as carbonate)-vitamin D3 15 mcg (600 unit) tablet 1 ea PO BID def. 02/21/20 certolizumab pegol 400 mg/2 mL (200 mg/mL x2) subcutaneous syringe kit (Cimzia) 200 mg subcut Q2W arthritis 12/31/20 hydroxychloroquine 200 mg tablet 200 mg PO .COMPLEX arthritis 07/09/21 Held on 12/21/24. Instructions: Resume on 01/09/25. hydrocortisone 2.5 % topical ointment 1 applic topical BID PRN perineal area 12/15/24 leflunomide 20 mg tablet 20 mg PO DAILY arthritis 12/15/24 Held on 12/21/24. Instructions: Resume on 01/09/25. acetaminophen 500 mg tablet 1,000 mg (2 x 500 mg) PO Q8 #0 tabs 12/21/24 ciprofloxacin HCl 500 mg tablet (Cipro) 500 mg PO BID 14 days #28 tabs 12/21/24 lisinopril 10 mg tablet 10 mg PO DAILY #60 tabs 12/21/24 metronidazole 500 mg tablet 500 mg PO TID 14 days #42 tabs 12/21/24 oxycodone 5 mg tablet 5 mg PO Q4H PRN PRN Pain Score 6-10 5 days #20 tabs 12/21/24 Physical Exam Narrative GENERAL: cooperative HEENT: Atraumatic; normocephalic EYES; Anicteric, Normal Conjunctiva NECK; supple, normal thyroid, RESPIRATORY: Diminished to auscultation CARDIOVASCULAR: Regular S1 S2, GI: soft, normoactive bowel sounds, : No Renal angle tenderness; (more content not included)...[facility]02-28-2025 Evaluation note* Diagnosis Onset Date Resolution Status Admit Date Acute pain of left shoulder acute December 15, 2024 10:31pm Acute pain of right shoulder acute December 15, 2024 10:31pm Bacteremia due to Gram-negat clay bacteria acute December 15 10:31pm Dehydration acute November 10:31pm Immunosuppressed status acute F ebruary 2024 10:31pm Influenza A acute November 10:31pm Septic arthritis of shoulder , left acute December 15 10:31pm Septic arthritis of shoulder , right acute December 15 10:31pm Septic arthritis of wrist, left acut e December 15, 2024 10:31pm Rheumatoid arthritis chronic Febr 2024 10:31pm [facility] Work Phone: 1(665) 910-438702-28-2025 Evaluation note* Diagnosis Onset Date Resolution Status Admit Date Immunosuppressed status acute F ebruary 2024 10:31pm Rheumatoid arthritis chronic Febr uary 2024 10:31pm Acute pain of left shoulder resolved December 15, 2024 10:31pm Acute pain of right shoulder resolve d December 15, 2024 10:31pm Bacteremia due to Gram-negat clay bacteria resolved December 15 10:31pm Dehydration resolved November 10:31pm Influenza A resolved November 10:31pm Septic arthritis of shoulder , left resolved December 15 10:31pm Septic arthritis of shoulder , right resolved December 15 10:31pm Septic arthritis of wrist, left reso lved December 15, 2024 10:31pm [facility] Work Phone: 1(662) 769-268402-28-2025 Evaluation note* Diagnosis Onset Date Resolution Status Admit Date Immunosuppressed status acute F ebruary 2024 10:31pm Rheumatoid arthritis chronic Febr uary 2024 10:31pm Acute pain of left shoulder resolved December 15, 2024 10:31pm Acute pain of right shoulder resolve d December 15, 2024 10:31pm Bacteremia due to Gram-negat clay bacteria resolved December 15 10:31pm Dehydration resolved November 10:31pm Influenza A resolved November 10:31pm Septic arthritis of shoulder , left resolved December 15 10:31pm Septic arthritis of shoulder , right resolved December 15 10:31pm Septic arthritis of wrist, left reso lved December 15, 2024 10:31pm Blood in stool acute January 2:09pm Blood in stool acute January 10:37am Rectal bleeding acute January 10:37am [facility] Work Phone: 1(650) 858-629702-27-2025 History of Present illness Narrative* Kayla Dunbar, RDMS - 12/15/2024 3:15 PM EST Radiology Service Progress Note PATIENT NAME: Becky Huffman DATE OF SERVICE: December 15, 2024 TIME: 3:35 PM PATIENT IDENTITY VERIFICATION COMPLETED USING TWO (2) IDENTIFIERS: Name and Date of confirmedby patient verbally. FALL SCREENING: Has the patient had 2 falls in the last year or 1 fall with injury or currently using an Ambulatory Assistive Device (Walker, Cane, Wheelchair, Crutches, etc.)? No PATIENT GENDER DATA: Assigned female at . status: : No status:NO. PATIENT RELEVANT IMPLANT DATA REVIEWED: Not Applicable PATIENT PRESENTS WITH AN IMPLANTABLE OR ATTACHED ANNEALER HELPER: No RADIOLOGY DEPARTMENT: Ultrasound PERIPHERAL IV DATA: Not applicable SIGNED BY: Kayla Dunbar RDMS RVT December 15, 2024 3:35 PM documented in this encounterOhiohealth Arthur [facility]02-27-2025 NoteHNO ID: [id number] Author: KAYLA DUNBAR RDMS Service: ? Author Type: Advertising Agency Manager Type: Progress Notes Filed: 12/15/2024 15:35 Note Text: Radiology Service Progress Note PATIENT NAME: Becky Huffman DATE OF SERVICE: December 15, 2024 TIME: 3:35 PM PATIENT IDENTITY VERIFICATION COMPLETED USING TWO (2) IDENTIFIERS: Name and Date of confirmed by patient verbally. FALL SCREENING: Has the patient had 2 falls in the last year or 1 fall with injury or currently using an Ambulatory Assistive Device (Walker, Cane, Wheelchair, Crutches, etc.)? No PATIENT GENDER DATA: Assigned female at . status: : No status: NO. PATIENT RELEVANT IMPLANT DATA REVIEWED: Not Applicable PATIENT PRESENTS WITH AN IMPLANTABLE OR ATTACHED ANNEALER HELPER: No RADIOLOGY DEPARTMENT: Ultrasound PERIPHERAL IV DATA: Not applicable SIGNED BY: Kayla Dunbar RDMS RVT December 15, 2024 3:35 [facility]02-27-2025 History of Present illness Narrative* Sirena Lester RT(R) - 12/15/2024 10:50 AM EST Radiology Service Progress Note PATIENT NAME: Becky Huffman DATE OF SERVICE: December 15, 2024 TIME: 10:44 AM PATIENT IDENTITY VERIFICATION COMPLETED USING TWO (2) IDENTIFIERS: Name and Date of confirmedby patient verbally. FALL SCREENING: Has the patient had 2 falls in the last year or 1 fall with injury or currently using an Ambulatory Assistive Device (Walker, Cane, Wheelchair, Crutches, etc.)? No PATIENT GENDER DATA: Assigned female at . status: : No status:NO. PATIENT RELEVANT IMPLANT DATA REVIEWED: Not Applicable PATIENT PRESENTS WITH AN IMPLANTABLE OR ATTACHED ANNEALER HELPER: No RADIOLOGY DEPARTMENT: General X-ray: Exam(s) Completed: Chest X-Ray PERIPHERAL IV DATA: Not applicable SIGNED BY: POLA Brandon) December 15, 2024 10:44 AM documented in this encounterOhiohealth Arthur [facility]02-27-2025 NoteHNO ID: [id number] Author: SIRENA LESTER RT(R) Service: Radiology Author Type: Technologist Type: Progress Notes Filed: 12/15/2024 10:50 Note Text: Radiology Service Progress Note PATIENT NAME: Becky Huffman DATE OF SERVICE: December 15, 2024 TIME: 10:44 AM PATIENT IDENTITY VERIFICATION COMPLETED USING TWO (2) IDENTIFIERS: Name and Date of confirmed by patient verbally. FALL SCREENING: Has the patient had 2 falls in the last year or 1 fall with injury or currently using an Ambulatory Assistive Device (Walker, Cane, Wheelchair, Crutches, etc.)? No PATIENT GENDER DATA: Assigned female at . status: : No status: NO. PATIENT RELEVANT IMPLANT DATA REVIEWED: Not Applicable PATIENT PRESENTS WITH AN IMPLANTABLE OR ATTACHED ANNEALER HELPER: No RADIOLOGY DEPARTMENT: General X-ray: Exam(s) Completed: Chest X-Ray PERIPHERAL IV DATA: Not applicable SIGNED BY: POLA Brandon) December 15, 2024 10:44 [facility]02-27-2025 [id number] (AGENT OF COVID-19) RNA: Not detected INFLUENZA A RNA: Not detected INFLUENZA B RNA: Not detected RESPIRATORY SYNCYTIAL VIRUS (RSV) RNA: Not detectedChillicothe Va Medical CenterComment on above:Performed By: #### [id number] ####[facility] LABCLIA [id number] [address]02-27-2025 NoteHNO ID: [id number] Author: HILDA UMANA APRN.ATMOSPHERIC CHEMIST Service: ? Author Type: Nurse Practitioner Type: Progress Notes Filed: 12/21/2024 19:28 Note Text: Chief Complaint Patient presents with: Pain (Shoulder Pain): Left shoulder Wrist Pain HPI Becky Huffman is a 54 year old female who presents here today for Above Complaints. Left ksipoksv-mftr-kbhxoy an RA flare-knows this is what is going on Left kzfsm-acvl-ilwido an RA flare-knows this is what is going on A couple bouts of throwing up-thinks it's because of meds and that she can't get much food down. Just feels like she can't swallow or get foods down. Thinks she could be sick but not sure-some nausea, chills, exposure to influenza A. Overall just doesn't feel well. Past medical history, appointments, medications, allergies reviewed. Previous Medical History PAST MEDICAL HISTORY Diagnosis Date Breast cancer ([facility]) 2019 PMH - PAST MEDICAL HISTORY OF FATIGUE PMH - PAST MEDICAL HISTORY OF achy joints Premenstrual tension syndromes PMS Rheumatoid arthritis involving multiple sites ([facility]) 05/20/2021 Rheumatoid arthritis(714.0) Previous Surgical History PAST SURGICAL HISTORY Procedure Laterality Date COLONOSCOPY, COLORECTAL SCREEN 10/17/2019 Dr. Travis Elias, [facility]; 4mm sessile polyp in proximal sigmoid colon, many diverticula in sigmoid colon, repeat in 5yr's MASTECTOMY HX Bilateral 2019 with tissue flap reconstruction PAST SURGICAL HISTORY OF Right 12/28/2018 lumpectomy PROVIDE CHEMOTHERAPY AGENT 2019 RADIATION THERAPY 2019 REMOVAL OF OVARY(S) Bilateral 02/2020 SALPINGECTOMY Bilateral 02/2020 TONSILLECTOMY PRIMARY/SECONDARY Tonsillectomy Family History FAMILY HISTORY Problem Relation Age of Onset Cancer Mother throat - radiation Cancer Father LUNG Hypertension Brother Diabetes Brother type 2 Hypertension Brother other (CHF) Maternal Grandfather Hypertension Paternal Grandfather Heart Paternal Grandfather No Known Problems Daughter Diabetes Son Type 1 Cancer Other Cancer Other Patient Allergies ALLERGIES No Known Allergies Current Medications Current Outpatient Medications on File Prior to Visit Medication Sig predniSONE (DELTASONE) 20 mg tablet Take 1 tablet by mouth two times a day for 5 days. benzonatate (TESSALON PERLE) 100 mg capsule Take 1 capsule by mouth three times a day as needed for cough for up to 7 days. anastrozole (ARIMIDEX) 1 mg tablet Take 1 tablet by mouth once daily. hydrOXYchloroQUINE (PLAQUENIL) 200 mg tablet Take 200 mg by mouth once daily. cholecalciferol, vitamin D3, (VITAMIN D3 ORAL) Take 2,000 Units by mouth once daily. certolizumab pegol (CIMZIA SUBCUTANEOUS) Inject 200 mg subcutaneously. Twice a month calcium carbonate/vitamin D3 (CALCIUM 600 + D ORAL) Take 1 tablet by mouth once daily. leflunomide (ARAVA) 20 mg tablet Take 20 mg by mouth once daily. ferrous sulfate 325 mg (65 mg iron) tablet Take 325 mg by mouth once daily. DAILY MULTIVITAMIN TAB Take 1 tablet by mouth once daily. No current facility-administered medications on file prior to visit. Social History Social History Tobacco Use Smoking status: Never Smokeless tobacco: Never Vaping Use Vaping status: Never Used Substance Use Topics Alcohol use: No Drug use: No Review of Symptoms REVIEW OF SYSTEMS See HPI, otherwise negative EXAM: BP 112/70 Pulse 68 Wt 65.8 kg (145 lb) LMP 12/04/2016 BMI 23.44 kg/m? General Appearance: ill-appearing, alert, in no acute distress, well-hydrated, well nourished.. Eyes: Anicteric sclera. Pupils are equally round and reactive to light. Extraocular movements are intact. . Ears: External ears normal, canals clear. Nose/Sinuses: Nares normal, septum midline, mucosa normal, no drainage or sinus tenderness. Oropharynx: Lips, mucosa, and tongue normal, teeth and gums normal, oropharynx normal. Neck: 2+ bilateral anterior cervical and submandibular lymphadenopathy. Lungs: Lungs clear to auscultation. No wheezing, rhonchi, rales.. Heart: RRR without murmur, gallop, or rubs. No ectopy. Lymph Nodes: 2+ bilateral anterior cervical and submandibular lymphadenopathy.. Psychiatric: pleasant, cooperative. Health Maintenance List Depression Screening Never done Anxiety Screening Never done Pneumococcal Vaccine: 50+(1 of 2 - PCV) Never done Cervical Cancer Screening due on 12/31/2021 Colorectal Cancer Screening due on 10/17/2024 Hepatitis B Vaccine(1 of 3 - 19+ 3-dose series) due on 02/14/2025 Covid-19 Vaccine(3 - Pfizer risk series) due on 02/14/2025 Diabetes Screening due on 05/05/2027 Lipid Screening due on 05/05/2029 DTaP,Tdap,Td Vaccine(2 - Td or Tdap) due on 07/11/2030 Influenza Vaccine Completed Shingrix Vaccine Completed Mammogram Screening Discontinued Hepatitis C Screening Discontinued HIV Screening Discontinued Data reviewed Previous records, office notes ASSESSMENT/PLAN: (more content not included)...[facility]02-27-2025 History of Present illness Narrative* Hilda Umana APRN.ATMOSPHERIC CHEMIST - 12/15/2024 9:33 AM EST Chief Complaint Patient presents with: Pain (Shoulder Pain): Left shoulder Wrist Pain HPI Becky Huffman is a 54 year old female who presents here today for Above Complaints. Left xvedmtzl-itve-lxouys an RA flare-knows this is what is going on Left dasai-sxkz-btztnz an RA flare-knows this is what is going on A couple bouts of throwing up-thinks it's because of meds and that she can't get much food down. Just feels like she can't swallow or get foods down. Thinks she could be sick but not sure-some nausea, chills, exposure to influenza A. Overall just doesn't feel well. Past medical history, appointments, medications, allergies reviewed. Previous Medical History PAST MEDICAL HISTORY Diagnosis Date Breast cancer (HCC) 2019 PMH - PAST MEDICAL HISTORY OF FATIGUE PMH - PAST MEDICAL HISTORY OF achy joints Premenstrual tension syndromes PMS Rheumatoid arthritis involving multiple sites (HCC) 05/20/2021 Rheumatoid arthritis(714.0) Previous Surgical History PAST SURGICAL HISTORY Procedure Laterality Date COLONOSCOPY, COLORECTAL SCREEN 10/17/2019 Dr. Travis Elias, [facility]; 4mm sessile polyp in proximal sigmoid colon, many diverticula in sigmoid colon, repeat in 5yr's MASTECTOMY HX Bilateral 2019 with tissue flap reconstruction PAST SURGICAL HISTORY OF Right 12/28/2018 lumpectomy PROVIDE CHEMOTHERAPY AGENT 2019 RADIATION THERAPY 2019 REMOVAL OF OVARY(S) Bilateral 02/2020 SALPINGECTOMY Bilateral 02/2020 TONSILLECTOMY PRIMARY/SECONDARY <AGE 10 Tonsillectomy Family History FAMILY HISTORY Problem Relation Age of Onset Cancer Mother throat - radiation Cancer Father LUNG Hypertension Brother Diabetes Brother type 2 Hypertension Brother other (CHF) Maternal Grandfather Hypertension Paternal Grandfather Heart Paternal Grandfather No Known Problems Daughter Diabetes Son Type 1 Cancer Other Cancer Other Patient Allergies ALLERGIES No Known Allergies Current Medications Current Outpatient Medications on File Prior to Visit Medication Sig predniSONE (DELTASONE) 20 mg tablet Take 1 tablet by mouth two times a day for 5 days. benzonatate (TESSALON PERLE) 100 mg capsule Take 1 capsule by mouth three times a day as needed forcough for up to 7 days. anastrozole (ARIMIDEX) 1 mg tablet Take 1 tablet by mouth once daily. hydrOXYchloroQUINE (PLAQUENIL) 200 mg tablet Take 200 mg by mouth once daily. cholecalciferol, vitamin D3, (VITAMIN D3 ORAL) Take 2,000 Units by mouth once daily. certolizumab pegol (CIMZIA SUBCUTANEOUS) Inject 200 mg subcutaneously. Twice a month calcium carbonate/vitamin D3 (CALCIUM 600 + D ORAL) Take 1 tablet by mouth once daily. leflunomide (ARAVA) 20 mg tablet Take 20 mg by mouth once daily. ferrous sulfate 325 mg (65 mg iron) tablet Take 325 mg by mouth once daily. DAILY MULTIVITAMIN TAB Take 1 tablet by mouth once daily. No current facility-administered medications on file prior to visit. Social History Social History Tobacco Use Smoking status: Never Smokeless tobacco: Never Vaping Use Vaping status: Never Used Substance Use Topics Alcohol use: No Drug use: No Review of Symptoms REVIEW OF SYSTEMS See HPI, otherwise negative EXAM: BP 112/70 Pulse 68 Wt 65.8 kg (145 lb) LMP 12/04/2016 BMI 23.44 kg/m General Appearance: ill-appearing, alert, in no acute distress, well-hydrated, well nourished.. Eyes: Anicteric sclera. Pupils are equally round and reactive to light. Extraocular movements are intact. . Ears: External ears normal, canals clear. Nose/Sinuses: Nares normal, septum midline, mucosa normal, no drainage or sinus tenderness. Oropharynx: Lips, mucosa, and tongue normal, teeth and gums normal, oropharynx normal. Neck: 2+ bilateral anterior cervical and submandibular lymphadenopathy. Lungs: Lungs clear to auscultation. No wheezing, rhonchi, rales.. Heart: RRR without murmur, gallop, or rubs. No ectopy. Lymph Nodes: 2+ bilateral anterior cervical and submandibular lymphadenopathy.. Psychiatric: pleasant, cooperative. Health Maintenance List Depression Screening Never done Anxiety Screening Never done Pneumococcal Vaccine: 50+(1 of 2 - PCV) Never done Cervical Cancer Screening due on 12/31/2021 Colorectal Cancer Screening due on 10/17/2024 Hepatitis B Vaccine(1 of 3 - 19+ 3-dose series) due on 02/14/2025 Covid-19 Vaccine(3 - Pfizer risk series) due on 02/14/2025 Diabetes Screening due on 05/05/2027 Lipid Screening due on 05/05/2029 DTaP,Tdap,Td Vaccine(2 - Td or Tdap) due on 07/11/2030 Influenza Vaccine Completed Shingrix Vaccine Completed Mammogram Screening Discontinued Hepatitis C Screening Discontinued HIV Screening Discontinued Data reviewed Previous records, office notes ASSESSMENT/PLAN: 1. Sore throat - ICD9: 462, ICD10: J02.9 (primary diagnosis) - COVID & INFLUENZA A/B & RSV PCR, ROUTINE - US THYROID/PARATHYROID - US HEAD/NECK SOFT TISSUE OTHER - COMPLETE BLOOD COUNT AND DIFFERENTIAL - COMPREHENSIVE METABOLIC PANEL - LACTATE DEHYDROGENASE - C-REACTIVE PROTEIN - SEDIMENTATION RATE, WESTERGREN 2. Lymphadenopathy - ICD9: 785.6, ICD10: R59.1 - COVID & INFLUENZA A/B & RSV PCR, ROUTINE - XR CHEST 2V FRONTAL/LAT - US THYROID/PARATHYROID - US HEAD/NECK SOFT TISSUE OTHER - COMPLETE BLOOD COUNT AND DIFFERENTIAL - COMPREHENSIVE METABOLIC PANEL - LACTATE DEHYDROGENASE - C-REACTIVE PROTEIN - SEDIMENTATION RATE, WESTERGREN 3. Painful breathing - ICD9: 786.52, ICD10: R07.1 - XR CHEST 2V FRONTAL/LAT 4. Rheumatoid arthritis flare (HCC) - ICD9: 714.0, ICD10: M06.9 - PREDNISONE 10 MG TABLET - COMPLETE BLOOD COUNT AND DIFFERENTIAL - COMPREHENSIVE METABOLIC PANEL - LACTATE DEHYDROGENASE - C-REACTIVE PROTEIN - SEDIMENTATION RATE, WESTERGREN 5. Acute pain of both shoulders - ICD9: 719.41, ICD10: M25.511, M25.512 - PREDNISONE 10 MG TABLET 6. Swelling of left wrist - ICD9: 719.03, ICD10: M25.432 - PREDNISONE 10 MG TABLET 7. Oropharyngeal dysphagia - ICD9: 787.22, ICD10: R13.12 - US THYROID/PARATHYROID - US HEAD/NECK SOFT TISSUE OTHER 8. Exposure to influenza - ICD9: V01.79, ICD10: Z20.828 - COVID & INFLUENZA A/B & RSV PCR, ROUTINE - XR CHEST 2V FRONTAL/LAT 9. History of breast cancer - ICD9: V10.3, ICD10: Z85.3 - XR CHEST 2V FRONTAL/LAT - US THYROID/PARATHYROID - US HEAD/NECK SOFT TISSUE OTHER 10. Malaise - ICD9: 780.79, ICD10: R53.81 - COVID & INFLUENZA A/B & RSV PCR, ROUTINE - XR CHEST 2V FRONTAL/LAT - US HEAD/NECK SOFT TISSUE OTHER - COMPLETE BLOOD COUNT AND DIFFERENTIAL - COMPREHENSIVE METABOLIC PANEL - LACTATE DEHYDROGENASE - C-REACTIVE PROTEIN - SEDIMENTATION RATE, WESTERGREN 11. Arthralgia, unspecified joint - ICD9: 719.40, ICD10: M25.50 - COVID & INFLUENZA A/B & RSV PCR, ROUTINE - XR CHEST 2V FRONTAL/LAT - US HEAD/NECK SOFT TISSUE OTHER - PREDNISONE 10 MG TABLET - COMPLETE BLOOD COUNT AND DIFFERENTIAL - COMPREHENSIVE METABOLIC PANEL - LACTATE DEHYDROGENASE - C-REACTIVE PROTEIN - SEDIMENTATION RATE, WESTERGREN 12. Throat fullness - ICD9: 784.99, ICD10: R09.89 - US THYROID/PARATHYROID - US HEAD/NECK SOFT TISSUE OTHER - COMPLETE BLOOD COUNT AND DIFFERENTIAL - COMPREHENSIVE METABOLIC PANEL - LACTATE DEHYDROGENASE - C-REACTIVE PROTEIN - SEDIMENTATION RATE, WESTERGREN 13. Nausea - ICD9: 787.02, ICD10: R11.0 - COVID & INFLUENZA A/B & RSV PCR, ROUTINE 14. Chills (without fever) - ICD9: 780.64, ICD10: R68.83 - COVID & INFLUENZA A/B & RSV PCR, ROUTINE - XR CHEST 2V FRONTAL/LAT - US THYROID/PARATHYROID - US HEAD/NECK SOFT TISSUE OTHER - COMPLETE BLOOD COUNT AND DIFFERENTIAL - COMPREHENSIVE METABOLIC PANEL - LACTATE DEHYDROGENASE - C-REACTIVE PROTEIN - SEDIMENTATION RATE, WESTERGREN Hilda Umana APRN.RAY documented [facility] Telephone encounter Note * Telephone Encounter - Castro Hall LPN - 12/14/2024 1:09 PM EST Pt notified. She verbalized understanding. Castro Hall LPN [facility]02-26-[facility]25 Miscellaneous Notes* Telephone Encounter - Castro Hall LPN - 12/14/2024 1:09 PM EST Pt notified. She verbalized understanding. Castro Hall LPN * Telephone Encounter - Becky Ireland APRN.CNP - 12/14/2024 12:18 PM EST If she is not feeling any better, she should consider returning for a recheck, as she is on medication that lowers her immune system. She certainly can add on tylenol and OTC medication, such as mucinex. Becky Ireland APRN.RAY * Telephone Encounter - Shu Chavez RN - 12/14/2024 9:00 AM EST Pt was seen in [facility] on Thursday AM for sore throat-negative for strep. Pt states on 11/23/24, she tested positive for Influenza A. She had been feeling better but was sure she had strept throat this time. Pt is still running a fever anywhere from 100-102 degrees. She was prescribed Prednisone which she feels is helping. But she states she is having a very hard time with muscle and body aches.She has been taking Ibuprofen every 4 hours. She is asking if there is anything else she can be taking to help. Has not taken any cold medicine or Tylenol yet. Pt states she does have arthritis too which doesn't help. She also has not been able to eat much-she is swallowing better but no appetite. Spoke with pt about chicken broth and soaking crackers in it, jello, pudding, yogurt, oatmeal. Any soft foods. Pt will try that but just asking what else she can take? documented in this encounterOhio[facility] Telephone encounter Note * Telephone Encounter - Becky Ireland APRN.CNP - 12/14/2024 12:18 PM EST If she is not feeling any better, she should consider returning for a recheck, as she is on medication that lowers her immune system. She certainly can add on tylenol and OTC medication, such as mucinex. Becky Ireland APRN.CNP [facility]02-26-[facility]25 Telephone encounter Note* Telephone Encounter - Shu Chavez RN - 12/14/2024 9:00 AM EST Pt was seen in [facility] on Thursday AM for sore throat-negative for strep. Pt states on 11/23/24, she tested positive for Influenza A. She had been feeling better but was sure she had strept throat this time. Pt is still running a fever anywhere from 100-102 degrees. She was prescribed Prednisone which she feels is helping. But she states she is having a very hard time with muscle and body aches.She has been taking Ibuprofen every 4 hours. She is asking if there is anything else she can be taking to help. Has not taken any cold medicine or Tylenol yet. Pt states she does have arthritis too which doesn't help. She also has not been able to eat much-she is swallowing better but no appetite. Spoke with pt about chicken broth and soaking crackers in it, jello, pudding, yogurt, oatmeal. Any soft foods. Pt will try that but just asking what else she can take? [facility]25 NoteHNO ID: [id number] Author: TERESITA MARSH PA-C Service: ? Author Type: Physician Tray Casting Machine Operator Type: Progress Notes Filed: 12/12/2024 07:45 Note Text: This note was created using [employer]. Subjective Becky Huffman is a 54 year old female. Patient is a 54-year-old female who complains of sore throat that she has been experiencing for the past 2 days. Patient also states she noted a fever as well as body aches. Patient states that she did contract influenza type A on 23 November 2024 and states that her symptoms did improve, however she is concerned that she is again developing influenza. Patient reports mild congestion but denies sinus pressure or ear pain and describes only a mild cough. 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 Sore Throat Review of Systems Constitutional: Positive for fever. HENT: Positive for sore throat. All other systems reviewed and are negative. Objective BP 108/64 Pulse 114 Temp (!) 38.1 ?C (100.5 ?F) Resp 16 Wt 67.2 kg (148 lb 2.4 oz) LMP 12/04/2016 SpO2 98% BMI 23.95 kg/m? Physical Exam Vitals and nursing note reviewed. Constitutional: Appearance: Normal appearance. She is normal weight. HENT: Head: Normocephalic and atraumatic. Right Ear: Tympanic membrane, ear canal and external ear normal. Left Ear: Tympanic membrane, ear canal and external ear normal. Nose: Nose normal. Mouth/Throat: Mouth: Mucous membranes are moist. Pharynx: Oropharynx is clear. Eyes: Extraocular Movements: Extraocular movements intact. Conjunctiva/sclera: Conjunctivae normal. Pupils: Pupils are equal, round, and reactive to light. Cardiovascular: Rate and Rhythm: Normal rate and regular rhythm. Pulses: Normal pulses. Heart sounds: Normal heart sounds. Pulmonary: Effort: Pulmonary effort is normal. Breath sounds: Normal breath sounds. Musculoskeletal: Cervical back: Normal range of motion and neck supple. Skin: General: Skin is warm and dry. Capillary Refill: Capillary refill takes less than 2 seconds. Neurological: General: No focal deficit present. Mental Status: She is alert and oriented to person, place, and time. Psychiatric: Mood and Affect: Mood normal. Behavior: Behavior normal. Thought Content: Thought content normal. Judgment: Judgment normal. Assessment and Plan Fully unremarkable physical exam findings as noted above. Rapid strep test is negative. Patient was provided with prescriptions for prednisone 20 mg and Tessalon 100 mg. Patient was advised that as she works at a daycare, she is exposed to multiple influenza-like viruses. Supportive care was discussed and the patient verbalizes good understanding of same. CLINICAL IMPRESSION: Acute Pharyngitis; Acute Laryngitis; Viral Illness ASSESSMENT/PLAN: 1. Sore throat - ICD9: 462, ICD10: J02.9 (primary diagnosis) - STREP A MOLECULAR (POC) 2. Acute pharyngitis, unspecified etiology - ICD9: 462, ICD10: J02.9 - BENZONATATE 100 MG CAPSULE 3. Acute laryngitis - ICD9: 464.00, ICD10: J04.0 - PREDNISONE 20 MG TABLET [facility]02-24-2025 History of Present illness Narrative* Teresita Marsh PA-C - 12/12/2024 7:16 AM EST This note was created using [employer]. Subjective Becky Huffman is a 54 year old female. Patient is a 54-year-old female who complains of sore throat that she has been experiencing for thepast 2 days. Patient also states she noted a fever as well as body aches. Patient states that she did contract influenza type A on 23 November 2024 and states that her symptoms did improve, however she is concerned that she is again developing influenza. Patient reports mild congestion but denies sinus pressure or ear pain and describes only a mild cough. 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 Sore Throat Review of Systems Constitutional: Positive for fever. HENT: Positive for sore throat. All other systems reviewed and are negative. Objective BP 108/64 Pulse 114 Temp (!) 38.1 C (100.5 F) Resp 16 Wt 67.2 kg (148 lb 2.4 oz) LMP 12/04/2016 SpO2 98% BMI 23.95 kg/m Physical Exam Vitals and nursing note reviewed. Constitutional: Appearance: Normal appearance. She is normal weight. HENT: Head: Normocephalic and atraumatic. Right Ear: Tympanic membrane, ear canal and external ear normal. Left Ear: Tympanic membrane, ear canal and external ear normal. Nose: Nose normal. Mouth/Throat: Mouth: Mucous membranes are moist. Pharynx: Oropharynx is clear. Eyes: Extraocular Movements: Extraocular movements intact. Conjunctiva/sclera: Conjunctivae normal. Pupils: Pupils are equal, round, and reactive to light. Cardiovascular: Rate and Rhythm: Normal rate and regular rhythm. Pulses: Normal pulses. Heart sounds: Normal heart sounds. Pulmonary: Effort: Pulmonary effort is normal. Breath sounds: Normal breath sounds. Musculoskeletal: Cervical back: Normal range of motion and neck supple. Skin: General: Skin is warm and dry. Capillary Refill: Capillary refill takes less than 2 seconds. Neurological: General: No focal deficit present. Mental Status: She is alert and oriented to person, place, and time. Psychiatric: Mood and Affect: Mood normal. Behavior: Behavior normal. Thought Content: Thought content normal. Judgment: Judgment normal. Assessment and Plan Fully unremarkable physical exam findings as noted above. Rapid strep test is negative. Patient wasprovided with prescriptions for prednisone 20 mg and Tessalon 100 mg. Patient was advised that as she works at a daycare, she is exposed to multiple influenza-like viruses. Supportive care was discussed and the patient verbalizes good understanding of same. CLINICAL IMPRESSION: Acute Pharyngitis; Acute Laryngitis; Viral Illness ASSESSMENT/PLAN: 1. Sore throat - ICD9: 462, ICD10: J02.9 (primary diagnosis) - STREP A MOLECULAR (POC) 2. Acute pharyngitis, unspecified etiology - ICD9: 462, ICD10: J02.9 - BENZONATATE 100 MG CAPSULE 3. Acute laryngitis - ICD9: 464.00, ICD10: J04.0 - PREDNISONE 20 MG TABLET Teresita Marsh PA-C documented in this encounterOhio[facility]25 NoteHNO ID: [id number] Author: ADELINA LUIS APRN.ATMOSPHERIC CHEMIST Service: ? Author Type: Nurse Practitioner Type: Progress Notes Filed: 11/28/2024 09:32 Note Text: Chief Complaint Patient presents with: Established Patient HPI: Becky Huffman is a 54 year old female who presents here today for follow up breast cancer. Per Dr. Stockton's previous note: H/o rheumatoid arthritis. She appreciated all hard lump in her right breast. US 12/06/2018: The palpable abnormality corresponds to a 6 mm x 12 mm x 12 mm irregular hypoechoic solid nodule. 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 ER (clone 6F11) >95%, moderate AZ (clone 16/1E2) 24%, weak Her-2Neu (clone CB11) 2+ ADDENDUM IN SITU HYBRIDIZATION (LEIDY) FOR HER2 Interpretation: Not Amplified HER2 : CEP-17 Ratio: 1.3 Average HER2 Signal: 2.1 Average CEP-17 Signal: 1.65 Number of Tumor Cells Scanned: 50 MRI breast 12/21/2018: No MRI evidence of malignancy in left breast. The 1.9 cm x 1.8 cm x 1.8 cm irregular mass in the right breast upper outer aspect anterior depth is a known biopsy positive for malignancy. The 4 mm mass in the right breast upper outer aspect middle depth is consistent with a lymph node and is benign. Last menses ~2 years ago. Had some hot flashes. Mother--Throat cancer. RA--Diagnosed ~10 years ago. Initially manifested as bilateral knee swelling. She has been on various treatments over the last 10 years. She will have flares of joint pain predominantly in the wrists and hands when she's been working. Underwent partial mastectomy with sentinel lymph node biopsy followed by axillary dissection on 12/28/2018. Pathology: FROZEN SECTION DIAGNOSIS A. Right axillary sentinel lymph nodes, biopsy: Two out of two lymph nodes positive for macrometastatic carcinoma. MICROSCOPIC DIAGNOSIS A. Right axillary lymph nodes, biopsy: Two out of two lymph nodes, positive for metastatic carcinoma. See comment. B. 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 See cancer summary below. C. Right axillary dissection: Three out of eight lymph nodes, positive for metastatic carcinoma. See comment. D. Re-excision inferior margin: Negative for carcinoma. INVASIVE BREAST CANCER SUMMARY: (Including specimens A to D) Specimen - partial breast Procedure - excision with wire-guided localization Lymph node sampling - sentinel lymph node and axillary dissection Specimen integrity - multiple designated specimens (specimen B AND D) Specimen size - lumpectomy specimen 4.5 x 3.5 x 3 cm Re-excision inferior margin - 5 x 3 x 1 cm Specimen laterality - right Tumor site - central portion of the right breast as per clinical information. Tumor size - 1.5 x 1.5 x 1.2 cm Tumor focality - single focus of invasive carcinoma Macroscopic and Microscopic extent of tumor: Skin - not present Nipple - not applicable Skeletal muscle - not present Ductal carcinoma in situ (DCIS) - no DCIS is present. Lobular carcinoma in situ (LCIS) - present Histologic type of invasive carcinoma - invasive carcinoma with ductal and lobular features (mixed type carcinoma). Histologic Grade ([place] grade): Glandular/tubular differentiation - score 3 Nuclear pleomorphism - score 3 Mitotic count - score 1 Overall grade - 2 (score of 7) Margins - Margins uninvolved by invasive carcinoma. The invasive carcinoma and lobular carcinoma in situ is 0.2 cm away from the inferior margin in lumpectomy specimen. Re-excision inferior margin measures 1 cm in thickness, overall the tumor is about 1.2 away from the inferior margin. The invasive carcinoma and lobular carcinoma in situ is 0.1 cm away from the anterior margin in lumpectomy specimen. Treatment effect: Response to presurgical (neoadjuvant) therapy - no known presurgical therapy. Lymph-Vascular invasion - not identified Dermal lymph-vascular invasion - not applicable Lymph nodes: Number of sentinel lymph nodes examined - 2 Total number of lymph nodes examined (sentinel and nonsentinel) - 10 Number of lymph nodes with macrometastases - 5 Number of lymph nodes with micrometastases and isolated tumor cells - 0 Size of largest metastatic deposit - 1.1 x 1.0 cm (measured microscopically). Extranodal extension - present, focal Method of evaluation of sentinel lymph nodes - H AND E and multiple levels. Distant metastasis - not applicable Additional pathologic findings - extensive dense fibrosis and intraductal hyperplasia. Ancillary studies - previously performed on section of tumor ([id number] / [id number]). ER - positive (>95%, moderate) AZ - positive (24%, weak) Her2 izzy - equivocal (2+) Her2 by dual LEIDY - negative/not amplified Microcalcific (more content not included)...[facility]02-10-2025 History of Present illness Narrative* Adelina Luis APRN.ATMOSPHERIC CHEMIST - 11/28/2024 9:06 AM EST Chief Complaint Patient presents with: Established Patient HPI: Becky Huffman is a 54 year old female who presents here today for follow up breast cancer. Per Dr. Stockton's previous note: H/o rheumatoid arthritis. She appreciated all hard lump in her right breast. US 12/06/2018: The palpable abnormality corresponds to a 6 mm x 12 mm x 12 mm irregular hypoechoic solid nodule. 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 ER (clone 6F11) >95%, moderate AZ (clone 16/1E2) 24%, weak Her-2Neu (clone CB11) 2+ ADDENDUM IN SITU HYBRIDIZATION (LEIDY) FOR HER2 Interpretation: Not Amplified HER2 : CEP-17 Ratio: 1.3 Average HER2 Signal: 2.1 Average CEP-17 Signal: 1.65 Number of Tumor Cells Scanned: 50 MRI breast 12/21/2018: No MRI evidence of malignancy in left breast. The 1.9 cm x 1.8 cm x 1.8 cm irregular mass in the right breast upper outer aspect anterior depth is a known biopsy positive for malignancy. The 4 mm mass in the right breast upper outer aspect middle depth is consistent with a lymph node and is benign. Last menses ~2 years ago. Had some hot flashes. Mother--Throat cancer. RA--Diagnosed ~10 years ago. Initially manifested as bilateral knee swelling. She has been on various treatments over the last 10 years. She will have flares of joint pain predominantly in the wristsand hands when she's been working. Underwent partial mastectomy with sentinel lymph node biopsy followed by axillary dissection on 12/28/2018. Pathology: FROZEN SECTION DIAGNOSIS A. Right axillary sentinel lymph nodes, biopsy: Two out of two lymph nodes positive for macrometastatic carcinoma. MICROSCOPIC DIAGNOSIS A. Right axillary lymph nodes, biopsy: Two out of two lymph nodes, positive for metastatic carcinoma. See comment. B. 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 See cancer summary below. C. Right axillary dissection: Three out of eight lymph nodes, positive for metastatic carcinoma. See comment. D. Re-excision inferior margin: Negative for carcinoma. INVASIVE BREAST CANCER SUMMARY: (Including specimens A to D) Specimen - partial breast Procedure - excision with wire-guided localization Lymph node sampling - sentinel lymph node and axillary dissection Specimen integrity - multiple designated specimens (specimen B & D) Specimen size - lumpectomy specimen 4.5 x 3.5 x 3 cm Re-excision inferior margin - 5 x 3 x 1 cm Specimen laterality - right Tumor site - central portion of the right breast as per clinical information. Tumor size - 1.5 x 1.5 x 1.2 cm Tumor focality - single focus of invasive carcinoma Macroscopic and Microscopic extent of tumor: Skin - not present Nipple - not applicable Skeletal muscle - not present Ductal carcinoma in situ (DCIS) - no DCIS is present. Lobular carcinoma in situ (LCIS) - present Histologic type of invasive carcinoma - invasive carcinoma with ductal and lobular features (mixed type carcinoma). Histologic Grade ([place] grade): Glandular/tubular differentiation - score 3 Nuclear pleomorphism - score 3 Mitotic count - score 1 Overall grade - 2 (score of 7) Margins - Margins uninvolved by invasive carcinoma. The invasive carcinoma and lobular carcinoma in situ is 0.2 cm away from the inferior margin in lumpectomy specimen. Re-excision inferior margin measures 1 cm in thickness, overall the tumor is about 1.2 away from the inferior margin. The invasive carcinoma and lobular carcinoma in situ is 0.1 cm away from the anterior margin in lumpectomy specimen. Treatment effect: Response to presurgical (neoadjuvant) therapy - no known presurgical therapy. Lymph-Vascular invasion - not identified Dermal lymph-vascular invasion - not applicable Lymph nodes: Number of sentinel lymph nodes examined - 2 Total number of lymph nodes examined (sentinel and nonsentinel) - 10 Number of lymph nodes with macrometastases - 5 Number of lymph nodes with micrometastases and isolated tumor cells - 0 Size of largest metastatic deposit - 1.1 x 1.0 cm (measured microscopically). Extranodal extension - present, focal Method of evaluation of sentinel lymph nodes - H & E and multiple levels. Distant metastasis - not applicable Additional pathologic findings - extensive dense fibrosis and intraductal hyperplasia. Ancillary studies - previously performed on section of tumor ([id number] / [id number]). ER - positive (>95%, moderate) AZ - positive (24%, weak) Her2 izzy - equivocal (2+) Her2 by dual LEIDY - negative/not amplified Microcalcifications - not identified Clinical history - Please make reference to previous specimen ([id number]) right breast tissue, core biopsy with diagnosis of invasive mammary carcinoma with ductal and lobular features. PATHOLOGIC STAGE: pT1c pN2a Mx COMMENT A. The largest focus of metastatic deposit measures 1.1 x 1 cm, measured microscopically. Focal minimal extranodal extension is noted. B. Immunohistochemistry ([id number]) supports the diagnosis of invasive carcinoma with mixed ductal and lobular features and lobular carcinoma in situ. The tumor predominantly consists of invasive lobular carcinoma (>95%), pleomorphic variant. C. The largest focus of metastasis measures 0.8 x 0.7 cm, measured microscopically. Extranodal extension is not seen. Immunohistochemistry ([id number]) supports the above diagnosis. She underwent CT scan of chest, abdomen and pelvis as well as whole body bone scan at [facility]. No evidence of metastatic disease was discovered. Previous therapy: 1) AC x4; Taxol weekly x 10-last cycle 06/30/19 RADIATION:07/28/19 to 09/14/19 Current therapy:Arimidex Began after radiation. Pt. s/p lap. BSO Marcanthony. Pt. s/p b/l mastectomy/OTILIA done at [facility]. Recovered well. Dx with influenza A on 11/23/24. Completed tamiflu yesterday. Pt. does not feel that her symptoms are improving. Appetite:Good. Energy level:None. No walking for the past 10 days. Flu as above. Last fever was last Thu. Resp:+ dry cough or sob, +sinus congestion Cardiac:denies chest pain/palpitations GI:denies abd pain, occ. reflux, denies n/v, moving bowels regularly :denies dysuria/hematuria Extrem:+joint ewzf-[id number]-[id number] by Rheum. Endo:+hot flashes Not too often. they do not wake pt. at night Neuro:+neuropathy to toes No different. Skin:denies rashes/lesions Heme:denies bleeding The ROS is otherwise negative. Past medical history, appointments, medications, allergies reviewed. No changes. EXAM: BP 127/87 Pulse 67 Temp 37.1 C (98.8 F) (Temporal) Wt 66.5 kg (146 lb 9.7 oz) LMP 12/04/2016 SpO2 96% BMI 23.70 kg/m APPEARANCE Well appearing, alert, in no acute distress, well-hydrated, well nourished. HEART RRR with normal S1 and S2, no murmurs LUNG clear to auscultation BREAST FEMALE b/l mastectomy/recon OTILIA, no mass/nodule b/l, nipple/AC surgically absent LYMPH NODES No cervical lymphadenopathy, No supraclavicular lymphadenopathy, and No axillary lymphadenopathy. ABDOMEN bowel sounds normoactive, soft, non-tender EXTREMITIES No edema NEURO Awake, alert and oriented x 3, Normal gait, and No involuntary motions. SKIN Skin color, texture, turgor normal, no suspicious rashes or lesions ASSESSMENT/PLAN: 1. 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 It's grade 2 tumor with ER positive (>95%, moderate), AZ positive (24%, weak), and Her2/izzy 2+ and dual LEIDY negative. s/padjuvant chemotherapy with AC followed by Taxol. Radiation completed 09/14/19. S/p b/l mastectomy OTILIA at [facility] - No new concerning findings on exam. - Overall tolerating arimidex well. - Continue arimidex. - Follow up in 6 months. - Pt. aware to call office with any questions/concerns. SENSITIVE EXAMINATION CONSENT: The sensitive examination was discussed with the Patient or Patient's Authorized Hand Candle Molder. Asapplicable, any other physician, advance practice provider, medical student, or other health professional student that will be observing or involved in the sensitive examination for educational or training purposes was discussed with the Patient or Authorized Hand Candle Molder. The Patient or Authorized Hand Candle Molder has agreed to proceed with the sensitive examination. (Sensitive examination includes inspection and/or palpation of the breasts, pelvis, prostate and anorectal regions) The patient indicates understanding of these issues and agrees with the plan. All documentation from previous visit of 05/23/24-Dr. Stockton/myself was copied and pasted, documentation has been reviewed and edited as necessary for today's visit. Adelina Luis APRN.RAY documented in this encounterOhio[facility] Telephone encounter Note * Telephone Encounter - Sun Neal OCCA - 11/23/2024 8:57 AM EST TC to patient who is informed rx sent to pharmacy. CHINO Ribera [facility]02-05-2025 Miscellaneous Notes* Telephone Encounter - Sun Neal OCCA - 11/23/2024 8:57 AM EST TC to patient who is informed rx sent to pharmacy. CHINO Ribera * Telephone Encounter - Lit Mcmullen APRN.CNP - 11/23/2024 8:35 AM EST Re sent * Telephone Encounter - Isabell Auguste RN - 11/23/2024 8:19 AM EST Patient calls to check on status of Tamiflu prescription. Patient at pharmacy to bead picker and not received. Patient asking if we could call her once completed so she can bead picker. [phone]. Prescription not noted. Pended. Isabell Auguste RN documented in this encounterOhiohealth [facility]02-05-2025 Telephone encounter Note * Telephone Encounter - Lit Mcmullen APRN.CNP - 11/23/2024 8:35 AM EST Re sent [facility]-05-[facility]25 NoteHNO ID: [id number] Author: LIT MCMULLEN APRN.CNP Service: ? Author Type: Nurse Practitioner Type: Progress Notes Filed: 11/23/2024 09:56 Note Text: Subjective HPI HPI Becky Huffman is a 54 year old female who presents today for CC of cough, st, fever. This started 1 day ago. Has tried otc medication for relief. Symptoms are worsened by nothing. Risk factors sick exposures at work. .Patient presents with: Sinus Problem: sinus pressure, drainage, chills, low grade fever x 3 days PAST MEDICAL HISTORY Diagnosis Date Breast cancer (HCC) 2018 PMH - PAST MEDICAL HISTORY OF FATIGUE PMH - PAST MEDICAL HISTORY OF achy joints Premenstrual tension syndromes PMS Rheumatoid arthritis involving multiple sites (HCC) 05/20/2021 Rheumatoid arthritis(714.0) PAST SURGICAL HISTORY Procedure Laterality Date COLONOSCOPY, COLORECTAL SCREEN 10/17/2019 Dr. Travis Elias, [facility]; 4mm sessile polyp in proximal sigmoid colon, many diverticula in sigmoid colon, repeat in 5yr's MASTECTOMY HX Bilateral 2019 with tissue flap reconstruction PAST SURGICAL HISTORY OF Right 12/28/2018 lumpectomy PROVIDE CHEMOTHERAPY AGENT 2019 RADIATION THERAPY 2019 REMOVAL OF OVARY(S) Bilateral 02/2020 SALPINGECTOMY Bilateral 02/2020 TONSILLECTOMY PRIMARY/SECONDARY Tonsillectomy ALLERGIES Patient has no known allergies. MEDICATIONS anastrozole (ARIMIDEX) 1 mg tablet Take 1 tablet by mouth once daily. hydrOXYchloroQUINE (PLAQUENIL) 200 mg tablet Take 200 mg by mouth once daily. cholecalciferol, vitamin D3, (VITAMIN D3 ORAL) Take 2,000 Units by mouth once daily. certolizumab pegol (CIMZIA SUBCUTANEOUS) Inject 200 mg subcutaneously. Twice a month calcium carbonate/vitamin D3 (CALCIUM 600 + D ORAL) Take 1 tablet by mouth once daily. leflunomide (ARAVA) 20 mg tablet Take 20 mg by mouth once daily. ferrous sulfate 325 mg (65 mg iron) tablet Take 325 mg by mouth once daily. DAILY MULTIVITAMIN TAB Take 1 tablet by mouth once daily. FAMILY HISTORY Problem Relation Age of Onset Cancer Mother throat - radiation Cancer Father LUNG Hypertension Brother Diabetes Brother type 2 Hypertension Brother other (CHF) Maternal Grandfather Hypertension Paternal Grandfather Heart Paternal Grandfather No Known Problems Daughter Diabetes Son Type 1 Cancer Other Cancer Other Social History Tobacco Use Smoking status: Never Smokeless tobacco: Never Vaping Use Vaping status: Never Used Substance Use Topics Alcohol use: No Drug use: No Review of Systems Constitutional: Positive for chills, fever and malaise/fatigue. HENT: Positive for congestion and sore throat. Negative for ear pain and nosebleeds. Respiratory: Positive for cough. Negative for shortness of breath and wheezing. Musculoskeletal: Negative for neck pain. Skin: Negative for itching and rash. Objective Blood pressure 118/70, pulse 84, temperature 37 ?C (98.6 ?F), resp. rate 16, weight 66.5 kg (146 lb 9.7 oz), last menstrual period 12/04/2016, SpO2 97%. Physical Exam Constitutional: General: She is not in acute distress. Appearance: She is not toxic-appearing or diaphoretic. HENT: Head: Normocephalic and atraumatic. Nose: Right Sinus: Maxillary sinus tenderness present. Left Sinus: Maxillary sinus tenderness present. Cardiovascular: Rate and Rhythm: Normal rate and regular rhythm. Heart sounds: Normal heart sounds, S1 normal and S2 normal. Pulmonary: Effort: Pulmonary effort is normal. Breath sounds: Normal breath sounds. Lymphadenopathy: Cervical: No cervical adenopathy. Right cervical: No superficial cervical adenopathy. Left cervical: No superficial cervical adenopathy. Neurological: Mental Status: She is alert and oriented to person, place, and time. Gait: Gait is intact. ASSESSMENT/PLAN: 1. Influenza A - ICD9: 487.1, ICD10: J10.1 (primary diagnosis) -discussed expected course -discussed supportive care -discussed red flags and reasons for f/u -discussed contagiousness, reason/when close family members should f/u, and whom to avoid -f/u in 3-5 days if symptoms worsening - OSELTAMIVIR 75 MG CAPSULE 2. URI, acute - ICD9: 465.9, ICD10: J06.9 - Discussed viral etiology and rationale for treatment. - Symptomatic treatment with prn analgesia - Supportive care with fluids and rest - Follow up in 3-5 days if symptoms persist or sooner if worsening of symptoms - INFLUENZA AANDB MOLECULAR (POC) 3. Sore throat - ICD9: 462, ICD10: J02.9 Negative, viral - ALERE STREP A TEST (AG) Lit Mcmullen APRN.[facility]02-05-2025 History of Present illness Narrative* Lit Mcmullen APRN.[facility] - 11/23/2024 8:34 AM EST Subjective HPI HPI Becky Huffman is a 54 year old female who presents today for CC of cough, st, fever. This started 1 day ago. Has tried otc medication for relief. Symptoms are worsened by nothing. Risk factors sick exposures at work. .Patient presents with: Sinus Problem: sinus pressure, drainage, chills, low grade fever x 3 days PAST MEDICAL HISTORY Diagnosis Date Breast cancer (HCC) 2018 PMH - PAST MEDICAL HISTORY OF FATIGUE PMH - PAST MEDICAL HISTORY OF achy joints Premenstrual tension syndromes PMS Rheumatoid arthritis involving multiple sites (HCC) 05/20/2021 Rheumatoid arthritis(714.0) PAST SURGICAL HISTORY Procedure Laterality Date COLONOSCOPY, COLORECTAL SCREEN 10/17/2019 Dr. Travis Elias, [facility]; 4mm sessile polyp in proximal sigmoid colon, many diverticula in sigmoid colon, repeat in 5yr's MASTECTOMY HX Bilateral 2019 with tissue flap reconstruction PAST SURGICAL HISTORY OF Right 12/28/2018 lumpectomy PROVIDE CHEMOTHERAPY AGENT 2019 RADIATION THERAPY 2019 REMOVAL OF OVARY(S) Bilateral 02/2020 SALPINGECTOMY Bilateral 02/2020 TONSILLECTOMY PRIMARY/SECONDARY <AGE 10 Tonsillectomy ALLERGIES Patient has no known allergies. MEDICATIONS anastrozole (ARIMIDEX) 1 mg tablet Take 1 tablet by mouth once daily. hydrOXYchloroQUINE (PLAQUENIL) 200 mg tablet Take 200 mg by mouth once daily. cholecalciferol, vitamin D3, (VITAMIN D3 ORAL) Take 2,000 Units by mouth once daily. certolizumab pegol (CIMZIA SUBCUTANEOUS) Inject 200 mg subcutaneously. Twice a month calcium carbonate/vitamin D3 (CALCIUM 600 + D ORAL) Take 1 tablet by mouth once daily. leflunomide (ARAVA) 20 mg tablet Take 20 mg by mouth once daily. ferrous sulfate 325 mg (65 mg iron) tablet Take 325 mg by mouth once daily. DAILY MULTIVITAMIN TAB Take 1 tablet by mouth once daily. FAMILY HISTORY Problem Relation Age of Onset Cancer Mother throat - radiation Cancer Father LUNG Hypertension Brother Diabetes Brother type 2 Hypertension Brother other (CHF) Maternal Grandfather Hypertension Paternal Grandfather Heart Paternal Grandfather No Known Problems Daughter Diabetes Son Type 1 Cancer Other Cancer Other Social History Tobacco Use Smoking status: Never Smokeless tobacco: Never Vaping Use Vaping status: Never Used Substance Use Topics Alcohol use: No Drug use: No Review of Systems Constitutional: Positive for chills, fever and malaise/fatigue. HENT: Positive for congestion and sore throat. Negative for ear pain and nosebleeds. Respiratory: Positive for cough. Negative for shortness of breath and wheezing. Musculoskeletal: Negative for neck pain. Skin: Negative for itching and rash. Objective Blood pressure 118/70, pulse 84, temperature 37 C (98.6 F), resp. rate 16, weight 66.5 kg (146 lb 9.7 oz), last menstrual period 12/04/2016, SpO2 97%. Physical Exam Constitutional: General: She is not in acute distress. Appearance: She is not toxic-appearing or diaphoretic. HENT: Head: Normocephalic and atraumatic. Nose: Right Sinus: Maxillary sinus tenderness present. Left Sinus: Maxillary sinus tenderness present. Cardiovascular: Rate and Rhythm: Normal rate and regular rhythm. Heart sounds: Normal heart sounds, S1 normal and S2 normal. Pulmonary: Effort: Pulmonary effort is normal. Breath sounds: Normal breath sounds. Lymphadenopathy: Cervical: No cervical adenopathy. Right cervical: No superficial cervical adenopathy. Left cervical: No superficial cervical adenopathy. Neurological: Mental Status: She is alert and oriented to person, place, and time. Gait: Gait is intact. ASSESSMENT/PLAN: 1. Influenza A - ICD9: 487.1, ICD10: J10.1 (primary diagnosis) -discussed expected course -discussed supportive care -discussed red flags and reasons for f/u -discussed contagiousness, reason/when close family members should f/u, and whom to avoid -f/u in 3-5 days if symptoms worsening - OSELTAMIVIR 75 MG CAPSULE 2. URI, acute - ICD9: 465.9, ICD10: J06.9 - Discussed viral etiology and rationale for treatment. - Symptomatic treatment with prn analgesia - Supportive care with fluids and rest - Follow up in 3-5 days if symptoms persist or sooner if worsening of symptoms - INFLUENZA A&B MOLECULAR (POC) 3. Sore throat - ICD9: 462, ICD10: J02.9 Negative, viral - ALERE STREP A TEST (AG) Lit Mcmullen APRN.ATMOSPHERIC CHEMIST documented in this encounterOhiohealth [facility]02-05-2025 Telephone encounter Note * Telephone Encounter - Isabell Auguste RN - 11/23/2024 8:19 AM EST Patient calls to check on status of Tamiflu prescription. Patient at pharmacy to bead picker and not received. Patient asking if we could call her once completed so she can bead picker. [phone]. Prescription not noted. Pended. Isabell Auguste RN [facility]12-17-2024 Telephone encounter Note* Telephone Encounter - Ca Lopez - 10/04/2024 8:25 AM EST Patient called in requesting a refill. Please assist. Ca Lopez [facility]12-17-2024 Miscellaneous Notes* Telephone Encounter - Ca Lopez - 10/04/2024 8:25 AM EST Patient called in requesting a refill. Please assist. Ca Lopez documented in this encounterOhiohealth [facility]08-18-2024 Telephone encounter Note * Telephone Encounter - Anupam Velasco - 06/05/2024 4:02 PM EDT I received a phone call from patient stating her 2nd toenail fell off and she has redness. She doesnot recall any injury Told her that the redness could be from inflammation vs infection. She can lift the toe above the heart for a few moments to see if the redness goes down. If the redness goes down, could be a sign ofjust inflammation. If the redness fails to improve, could be infection. If she wishes to be cautious, could give her an antibiotic. I will give her an antibiotic x 1 week.If condition fails to improve, she can call the office or me this week and we will see her Anupam Velasco DPM [facility]08-18-2024 Miscellaneous Notes* Telephone Encounter - Jackieflaca Anupam - 06/05/2024 4:02 PM EDT I received a phone call from patient stating her 2nd toenail fell off and she has redness. She doesnot recall any injury Told her that the redness could be from inflammation vs infection. She can lift the toe above the heart for a few moments to see if the redness goes down. If the redness goes down, could be a sign ofjust inflammation. If the redness fails to improve, could be infection. If she wishes to be cautious, could give her an antibiotic. I will give her an antibiotic x 1 week.If condition fails to improve, she can call the office or me this week and we will see her Anupam BRUNO Velasco * Telephone Encounter - Marvin Johnson LPN - 05/31/2024 2:40 PM EDT Patient calling and reports she has had redness around the right second toenail since Thursday. Redness extends from below the nail to about a quarter of the way down the toe. She has some neuropathy but does not recall an obvious injury. She is not having any pain related to the redness. She recently finished her course of itraconazole. She is wondering if she should be concerned or if we have any suggestions? Please advise. Marvin Johnson LPN documented in this encounterOhiohealth [facility]08-13-2024 Telephone encounter Note * Telephone Encounter - Marvin Johnson LPN - 05/31/2024 2:40 PM EDT Patient calling and reports she has had redness around the right second toenail since Thursday. Redness extends from below the nail to about a quarter of the way down the toe. She has some neuropathy but does not recall an obvious injury. She is not having any pain related to the redness. She recently finished her course of itraconazole. She is wondering if she should be concerned or if we have any suggestions? Please advise. Marvin Johnson LPN [facility]08-05-2024 NoteHNO ID: [id number] Author: ADELINA LUIS APRN.ATMOSPHERIC CHEMIST Service: ? Author Type: Nurse Practitioner Type: Progress Notes Filed: 05/23/2024 10:31 Note Text: Chief Complaint Patient presents with: Established Patient HPI: Becky Huffman is a 54 year old female who presents here today for follow up breast cancer. Per Dr. Stockton's previous note: H/o rheumatoid arthritis. She appreciated all hard lump in her right breast. US 12/06/2018: The palpable abnormality corresponds to a 6 mm x 12 mm x 12 mm irregular hypoechoic solid nodule. 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 ER (clone [id number]) >95%, moderate AZ (clone 16/1E2) 24%, weak Her-2Neu (clone CB11) 2+ ADDENDUM IN SITU HYBRIDIZATION (LEIDY) FOR HER2 Interpretation: Not Amplified HER2 : CEP-17 Ratio: 1.3 Average HER2 Signal: 2.1 Average CEP-17 Signal: 1.65 Number of Tumor Cells Scanned: 50 MRI breast 12/21/2018: No MRI evidence of malignancy in left breast. The 1.9 cm x 1.8 cm x 1.8 cm irregular mass in the right breast upper outer aspect anterior depth is a known biopsy positive for malignancy. The 4 mm mass in the right breast upper outer aspect middle depth is consistent with a lymph node and is benign. Last menses ~2 years ago. Had some hot flashes. Mother--Throat cancer. RA--Diagnosed ~10 years ago. Initially manifested as bilateral knee swelling. She has been on various treatments over the last 10 years. She will have flares of joint pain predominantly in the wrists and hands when she's been working. Underwent partial mastectomy with sentinel lymph node biopsy followed by axillary dissection on 12/28/2018. Pathology: FROZEN SECTION DIAGNOSIS A. Right axillary sentinel lymph nodes, biopsy: Two out of two lymph nodes positive for macrometastatic carcinoma. MICROSCOPIC DIAGNOSIS A. Right axillary lymph nodes, biopsy: Two out of two lymph nodes, positive for metastatic carcinoma. See comment. B. 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 See cancer summary below. C. Right axillary dissection: Three out of eight lymph nodes, positive for metastatic carcinoma. See comment. D. Re-excision inferior margin: Negative for carcinoma. INVASIVE BREAST CANCER SUMMARY: (Including specimens A to D) Specimen - partial breast Procedure - excision with wire-guided localization Lymph node sampling - sentinel lymph node and axillary dissection Specimen integrity - multiple designated specimens (specimen B AND D) Specimen size - lumpectomy specimen 4.5 x 3.5 x 3 cm Re-excision inferior margin - 5 x 3 x 1 cm Specimen laterality - right Tumor site - central portion of the right breast as per clinical information. Tumor size - 1.5 x 1.5 x 1.2 cm Tumor focality - single focus of invasive carcinoma Macroscopic and Microscopic extent of tumor: Skin - not present Nipple - not applicable Skeletal muscle - not present Ductal carcinoma in situ (DCIS) - no DCIS is present. Lobular carcinoma in situ (LCIS) - present Histologic type of invasive carcinoma - invasive carcinoma with ductal and lobular features (mixed type carcinoma). Histologic Grade ([place] grade): Glandular/tubular differentiation - score 3 Nuclear pleomorphism - score 3 Mitotic count - score 1 Overall grade - 2 (score of 7) Margins - Margins uninvolved by invasive carcinoma. The invasive carcinoma and lobular carcinoma in situ is 0.2 cm away from the inferior margin in lumpectomy specimen. Re-excision inferior margin measures 1 cm in thickness, overall the tumor is about 1.2 away from the inferior margin. The invasive carcinoma and lobular carcinoma in situ is 0.1 cm away from the anterior margin in lumpectomy specimen. Treatment effect: Response to presurgical (neoadjuvant) therapy - no known presurgical therapy. Lymph-Vascular invasion - not identified Dermal lymph-vascular invasion - not applicable Lymph nodes: Number of sentinel lymph nodes examined - 2 Total number of lymph nodes examined (sentinel and nonsentinel) - 10 Number of lymph nodes with macrometastases - 5 Number of lymph nodes with micrometastases and isolated tumor cells - 0 Size of largest metastatic deposit - 1.1 x 1.0 cm (measured microscopically). Extranodal extension - present, focal Method of evaluation of sentinel lymph nodes - H AND E and multiple levels. Distant metastasis - not applicable Additional pathologic findings - extensive dense fibrosis and intraductal hyperplasia. Ancillary studies - previously performed on section of tumor ([id number] / [id number]). ER - positive (>95%, moderate) AZ - positive (24%, weak) Her2 izzy - equivocal (2+) Her2 by dual LEIDY - negative/not amplified Microcalcific (more content not included)...[facility]08-05-2024 History of Present illness Narrative* Adelina Luis APRN.[facility] - 05/23/2024 9:00 AM EDT Chief Complaint Patient presents with: Established Patient HPI: Becky Huffman is a 54 year old female who presents here today for follow up breast cancer. Per Dr. Stockton's previous note: H/o rheumatoid arthritis. She appreciated all hard lump in her right breast. US 12/06/2018: The palpable abnormality corresponds to a 6 mm x 12 mm x 12 mm irregular hypoechoic solid nodule. 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 ER (clone [id number]) >95%, moderate AZ (clone 16/1E2) 24%, weak Her-2Neu (clone [id number]) 2+ ADDENDUM IN SITU HYBRIDIZATION (ELIDY) FOR HER2 Interpretation: Not Amplified HER2 : CEP-17 Ratio: 1.3 Average HER2 Signal: 2.1 Average CEP-17 Signal: 1.65 Number of Tumor Cells Scanned: 50 MRI breast 12/21/2018: No MRI evidence of malignancy in left breast. The 1.9 cm x 1.8 cm x 1.8 cm irregular mass in the right breast upper outer aspect anterior depth is a known biopsy positive for malignancy. The 4 mm mass in the right breast upper outer aspect middle depth is consistent with a lymph node and is benign. Last menses ~2 years ago. Had some hot flashes. Mother--Throat cancer. RA--Diagnosed ~10 years ago. Initially manifested as bilateral knee swelling. She has been on various treatments over the last 10 years. She will have flares of joint pain predominantly in the wristsand hands when she's been working. Underwent partial mastectomy with sentinel lymph node biopsy followed by axillary dissection on 12/28/2018. Pathology: FROZEN SECTION DIAGNOSIS A. Right axillary sentinel lymph nodes, biopsy: Two out of two lymph nodes positive for macrometastatic carcinoma. MICROSCOPIC DIAGNOSIS A. Right axillary lymph nodes, biopsy: Two out of two lymph nodes, positive for metastatic carcinoma. See comment. B. 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 See cancer summary below. C. Right axillary dissection: Three out of eight lymph nodes, positive for metastatic carcinoma. See comment. D. Re-excision inferior margin: Negative for carcinoma. INVASIVE BREAST CANCER SUMMARY: (Including specimens A to D) Specimen - partial breast Procedure - excision with wire-guided localization Lymph node sampling - sentinel lymph node and axillary dissection Specimen integrity - multiple designated specimens (specimen B & D) Specimen size - lumpectomy specimen 4.5 x 3.5 x 3 cm Re-excision inferior margin - 5 x 3 x 1 cm Specimen laterality - right Tumor site - central portion of the right breast as per clinical information. Tumor size - 1.5 x 1.5 x 1.2 cm Tumor focality - single focus of invasive carcinoma Macroscopic and Microscopic extent of tumor: Skin - not present Nipple - not applicable Skeletal muscle - not present Ductal carcinoma in situ (DCIS) - no DCIS is present. Lobular carcinoma in situ (LCIS) - present Histologic type of invasive carcinoma - invasive carcinoma with ductal and lobular features (mixed type carcinoma). Histologic Grade ([place] grade): Glandular/tubular differentiation - score 3 Nuclear pleomorphism - score 3 Mitotic count - score 1 Overall grade - 2 (score of 7) Margins - Margins uninvolved by invasive carcinoma. The invasive carcinoma and lobular carcinoma in situ is 0.2 cm away from the inferior margin in lumpectomy specimen. Re-excision inferior margin measures 1 cm in thickness, overall the tumor is about 1.2 away from the inferior margin. The invasive carcinoma and lobular carcinoma in situ is 0.1 cm away from the anterior margin in lumpectomy specimen. Treatment effect: Response to presurgical (neoadjuvant) therapy - no known presurgical therapy. Lymph-Vascular invasion - not identified Dermal lymph-vascular invasion - not applicable Lymph nodes: Number of sentinel lymph nodes examined - 2 Total number of lymph nodes examined (sentinel and nonsentinel) - 10 Number of lymph nodes with macrometastases - 5 Number of lymph nodes with micrometastases and isolated tumor cells - 0 Size of largest metastatic deposit - 1.1 x 1.0 cm (measured microscopically). Extranodal extension - present, focal Method of evaluation of sentinel lymph nodes - H & E and multiple levels. Distant metastasis - not applicable Additional pathologic findings - extensive dense fibrosis and intraductal hyperplasia. Ancillary studies - previously performed on section of tumor ([id number] / [id number]). ER - positive (>95%, moderate) AZ - positive (24%, weak) Her2 izzy - equivocal (2+) Her2 by dual LEIDY - negative/not amplified Microcalcifications - not identified Clinical history - Please make reference to previous specimen ([id number]) right breast tissue, core biopsy with diagnosis of invasive mammary carcinoma with ductal and lobular features. PATHOLOGIC STAGE: pT1c pN2a Mx COMMENT A. The largest focus of metastatic deposit measures 1.1 x 1 cm, measured microscopically. Focal minimal extranodal extension is noted. B. Immunohistochemistry ([id number]) supports the diagnosis of invasive carcinoma with mixed ductal and lobular features and lobular carcinoma in situ. The tumor predominantly consists of invasive lobular carcinoma (>95%), pleomorphic variant. C. The largest focus of metastasis measures 0.8 x 0.7 cm, measured microscopically. Extranodal extension is not seen. Immunohistochemistry ([id number]) supports the above diagnosis. She underwent CT scan of chest, abdomen and pelvis as well as whole body bone scan at [facility]. No evidence of metastatic disease was discovered. Previous therapy: 1) AC x4; Taxol weekly x 10-last cycle 06/30/19 RADIATION:07/28/19 to 09/14/19 Current therapy:Arimidex Began after radiation. Pt. s/p lap. BSO Marcanthony. Pt. s/p b/l mastectomy/OTILIA done at [facility]. Recovered well. No new concerns today. Appetite:Good. Energy level:Good. Walks daily. Denies fevers or recent illness. Resp:denies cough or sob Cardiac:denies chest pain/palpitations GI:denies abd pain, n/v, moving bowels regularly :denies dysuria/hematuria Extrem:+joint yxxz-gjimczp-Mcjuijmf by Rheum. Endo:+hot flashes Sporadic. they do not wake pt. at night Neuro:+neuropathy to toes The same. Skin:denies rashes/lesions Heme:denies bleeding The ROS is otherwise negative. Past medical history, appointments, medications, allergies reviewed. No changes. EXAM: BP 120/75 Pulse 83 Temp 36.3 C (97.4 F) (Temporal) Wt 65.4 kg (144 lb 2.9 oz) LMP 12/04/2016 SpO2 97% BMI 23.31 kg/m APPEARANCE Well appearing, alert, in no acute distress, well-hydrated, well nourished. HEART RRR with normal S1 and S2, no murmurs LUNG clear to auscultation BREAST FEMALE b/l mastectomy/recon OTILIA, no mass/nodule b/l LYMPH NODES No cervical lymphadenopathy, No supraclavicular lymphadenopathy, and No axillary lymphadenopathy. ABDOMEN bowel sounds normoactive, soft, non-tender EXTREMITIES No edema NEURO Awake, alert and oriented x 3, Normal gait, and No involuntary motions. SKIN Skin color, texture, turgor normal, no suspicious rashes or lesions ASSESSMENT/PLAN: 1. 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 It's grade 2 tumor with ER positive (>95%, moderate), AZ positive (24%, weak), and Her2/izzy 2+ and dual LEIDY negative. s/padjuvant chemotherapy with AC followed by Taxol. Radiation completed 09/14/19. S/p b/l mastectomy OTILIA at [facility] - No new concerning findings on exam. - Overall tolerating arimidex well. - Continue arimidex. - Follow up in 6 months. - Pt. aware to call office with any questions/concerns. The patient indicates understanding of these issues and agrees with the plan. All documentation from previous visit of 11/05/23-Dr. Stockton/myself was copied and pasted, documentation has been reviewed and edited as necessary for today's visit. Adelina Luis APRN.RAY documented in this encounterOhio[facility] Instructions* Patient Instructions* Becky Ireladn APRN.CNP - 05/04/2024 2:59 PM EDT Apply nystatin-triamcinolone cream twice daily for 14 days Schedule appointment with dermatology documented in this encounterOhiohealth [facility]07-17-2024 History of Present illness Narrative* Becky Ireland APRN.CNP - 05/04/2024 2:32 PM EDT This is a 54 year old female who presents today with: Patient presents with: Acute Visit: 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 and cracked, 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 HISTORY OF PRESENT ILLNESS: Becky Huffman is a 54 year old female. Patient presents with: Acute Visit: 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 and cracked, 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 Pt presents with lips are dried, cracked and irritated Pt has tried carmax, aquaphor with no relief Pt tries lip sunscreen, but has noticed recently that it has burned Pt has noticed irritation to her lips in the fall and spring This has been going on consistently over the past week Pt has noticed it coming and going over the last year No new medication changes Pt has no known allergies No issues inside of the mouth Pt requesting a dermatology consult, Dr. Messi Benton Pt also concerns about small red papule on left side of nose Pt has been taking anastrozole since 2019 with no noted side effects Pt has been taking hydroxychloroquine since 2009 with no noted side effects PAST MEDICAL HISTORY: PAST MEDICAL HISTORY Diagnosis Date Breast cancer (HCC) 2019 PMH - PAST MEDICAL HISTORY OF FATIGUE PMH - PAST MEDICAL HISTORY OF achy joints Premenstrual tension syndromes PMS Rheumatoid arthritis involving multiple sites (HCC) 05/20/2021 Rheumatoid arthritis(714.0) PAST SURGICAL HISTORY Procedure Laterality Date COLONOSCOPY, COLORECTAL SCREEN 10/17/2019 Dr. Travis Elias, [facility]; 4mm sessile polyp in proximal sigmoid colon, many diverticula in sigmoid colon, repeat in 5yr's MASTECTOMY HX Bilateral 2019 with tissue flap reconstruction PAST SURGICAL HISTORY OF Right 12/28/2018 lumpectomy PROVIDE CHEMOTHERAPY AGENT 2019 RADIATION THERAPY 2019 REMOVAL OF OVARY(S) Bilateral 02/2020 SALPINGECTOMY Bilateral 02/2020 TONSILLECTOMY PRIMARY/SECONDARY <AGE 12 Tonsillectomy ALLERGIES Patient has no known allergies. MEDICATIONS Current Outpatient Medications Medication Sig anastrozole (ARIMIDEX) 1 mg tablet Take 1 tablet by mouth once daily. hydrOXYchloroQUINE (PLAQUENIL) 200 mg tablet Take 200 mg by mouth once daily. cholecalciferol, vitamin D3, (VITAMIN D3 ORAL) Take 2,000 Units by mouth once daily. certolizumab pegol (CIMZIA SUBCUTANEOUS) Inject 200 mg subcutaneously. Twice a month calcium carbonate/vitamin D3 (CALCIUM 600 + D ORAL) Take 1 tablet by mouth once daily. leflunomide (ARAVA) 20 mg tablet Take 20 mg by mouth once daily. ferrous sulfate 325 mg (65 mg iron) tablet Take 325 mg by mouth once daily. DAILY MULTIVITAMIN TAB Take 1 tablet by mouth once daily. No current facility-administered medications for this visit. FAMILY HISTORY Problem Relation Age of Onset Cancer Mother throat - radiation Cancer Father LUNG Hypertension Brother Diabetes Brother type 2 Hypertension Brother other (CHF) Maternal Grandfather Hypertension Paternal Grandfather Heart Paternal Grandfather No Known Problems Daughter Diabetes Son Type 1 Cancer Other Cancer Other Social History Tobacco Use Smoking status: Never Smokeless tobacco: Never Vaping Use Vaping Use: Never used Substance Use Topics Alcohol use: No Drug use: No EXAM: BP 124/90 Pulse 79 Resp 16 LMP 12/04/2016 SpO2 97% PHYSICAL EXAM: General Appearance: Well appearing, alert, in no acute distress, well-hydrated, well nourished.. Skin: Skin color, texture, turgor normal. Erythematous, excoriated, swollen lip dermatitis. Head: Normocephalic, no masses, lesions, tenderness or abnormalities. Eyes: Anicteric sclera. Extraocular movements are intact. . Lungs: Lungs clear to auscultation. No wheezing, rhonchi, rales.. Heart: RRR without murmur, gallop, or rubs. No ectopy. Neurologic: Gait normal. ASSESSMENT/PLAN: 1. Dermatitis of lip - ICD9: 692.9, ICD10: L30.9 (primary diagnosis) - Topical steriod tx with nystatin-triamcinolone cream BID x 14 days - discussed skin care of rash - follow up if symptoms persist or worsen. - CONSULT TO DERMATOLOGY - NYSTATIN-TRIAMCINOLONE 100,000 UNIT/G-0.1 % TOPICAL CREAM 2. Angular cheilitis - ICD9: 528.5, ICD10: K13.0 Suspect component of angular cheilitis that is progressing. Will treat with steroid/antifungal. - nystatin-triamcinolone cream BID x 14 days - CONSULT TO DERMATOLOGY - requests Messi Benton. - NYSTATIN-TRIAMCINOLONE 100,000 UNIT/G-0.1 % TOPICAL CREAM Discussed treatment plan and patient voices understanding. Patient's questions answered appropriately. Medications and potential side effects were discussed and patient voices understanding. Return to the office as scheduled or as needed for worsening/no improvement. Becky Ireland APRN.ATMOSPHERIC CHEMIST The patient indicates understanding of these issues and agrees with the plan. documented in this encounterOhiohealth [facility]07-17-2024 Telephone encounter Note * Telephone Encounter - Radha Hatch LPN - 05/04/2024 9:26 AM EDT Pt called to request a referral to Dermatology. Pt having problems with her lips. They red, dry crusty and feel sunburn but uses sunscreen. Pt has scheduled apt for today to discuss. Radha Hatch LPN [facility]07-17-2024 Miscellaneous Notes* Telephone Encounter - Radha Hatch LPN - 05/04/2024 9:26 AM EDT Pt called to request a referral to Dermatology. Pt having problems with her lips. They red, dry crusty and feel sunburn but uses sunscreen. Pt has scheduled apt for today to discuss. Radha Hatch LPN documented in this encounterOhiohealth Arthur [facility]06-25-2024 History of Present illness Narrative* Anupam Velasco - 04/12/2024 10:14 PM EDT Consultation requested by Dr. Ireland for an opinion regarding toenail deformity. My final recommendations will be communicated back to the requesting physician by way of shared Medical record or letter to requesting physician via US mail. Initial Podiatric Office Visit: Chief Complaint: This 53 year old female who presents with chief complaint:discolored toenails of b/l feet HPI Patient presents to clinic for evaluation of b/l feet. She complains of discolored toenails of b/l feet that have been present for several years. She denies any pain with the nails. She did try penlac but did not find the medication to be very successful. She is here to discuss options for the nails. PAIN EVALUATION No data found in the last 1 encounters. No results found for: HBA1C PCP: Becky Ireland APRN.ATMOSPHERIC CHEMIST PAST MEDICAL HISTORY Diagnosis Date Breast cancer ([facility]) 2019 PMH - PAST MEDICAL HISTORY OF FATIGUE PMH - PAST MEDICAL HISTORY OF achy joints Premenstrual tension syndromes PMS Rheumatoid arthritis involving multiple sites ([facility]) 05/20/2021 Rheumatoid arthritis(714.0) Current Outpatient Medications Medication Sig anastrozole (ARIMIDEX) 1 mg tablet Take 1 tablet by mouth once daily. hydrOXYchloroQUINE (PLAQUENIL) 200 mg tablet Take 200 mg by mouth once daily. cholecalciferol, vitamin D3, (VITAMIN D3 ORAL) Take 2,000 Units by mouth once daily. certolizumab pegol (CIMZIA SUBCUTANEOUS) Inject 200 mg subcutaneously. Twice a month calcium carbonate/vitamin D3 (CALCIUM 600 + D ORAL) Take 1 tablet by mouth once daily. leflunomide (ARAVA) 20 mg tablet Take 20 mg by mouth once daily. ferrous sulfate 325 mg (65 mg iron) tablet Take 325 mg by mouth once daily. DAILY MULTIVITAMIN TAB Take 1 tablet by mouth once daily. No current facility-administered medications for this visit. ALLERGIES No Known Allergies PAST SURGICAL HISTORY Procedure Laterality Date COLONOSCOPY, COLORECTAL SCREEN 10/17/2019 Dr. Travis Elias, [facility]; 4mm sessile polyp in proximal sigmoid colon, many diverticula in sigmoid colon, repeat in 5yr's MASTECTOMY HX Bilateral 2019 with tissue flap reconstruction PAST SURGICAL HISTORY OF Right 12/28/2018 lumpectomy PROVIDE CHEMOTHERAPY AGENT 2019 RADIATION THERAPY 2019 REMOVAL OF OVARY(S) Bilateral 02/2020 SALPINGECTOMY Bilateral 02/2020 TONSILLECTOMY PRIMARY/SECONDARY <AGE 12 Tonsillectomy FAMILY HISTORY Problem Relation Age of Onset Cancer Mother throat - radiation Cancer Father LUNG Hypertension Brother Diabetes Brother type 2 Hypertension Brother other (CHF) Maternal Grandfather Hypertension Paternal Grandfather Heart Paternal Grandfather No Known Problems Daughter Diabetes Son Type 1 Cancer Other Cancer Other Social History Tobacco Use Smoking status: Never Smokeless tobacco: Never Vaping Use Vaping Use: Never used Substance Use Topics Alcohol use: No Drug use: No REVIEW OF SYSTEMS GENERAL: Negative for Malaise, significant weight loss, fever RESPIRATORY: Negative for cough, wheezing and shortness of breath CARDIOVASCULAR: Negative for chest pain, leg swelling and palpitations GI: Negative for abdominal discomfort, blood in stools or black stools and change in bowel habits : Negative for dysuria, frequency and incontinence MUSCULOSKELETAL: Negative for joint pain or swelling, back pain, and muscle pain. SKIN: Negative for lesions, rash, and itching. HEMATOLOGY/LYMPHOLOGY Negative for prolonged bleeding, bruising easily, and swollen nodes. ENDOCRINE: Negative for cold or heat intolerance, polyuria, polydipsia and goiter. NEURO: negative Physical Exam: Constitutional: Pt is a well developed 53 year old female who is alert, oriented and cooperative Eyes: Following during examination. No redness or drainage. Respiratory: RR normal and nonlabored. Even breathing. No evidence of distress or shortness of breath. Psychology: Patient is engaged during conversation. Normal affect and mood. Does not appear depressed or anxious during encounter. Vascular: Dorsalis pedis and posterior tibial pulses palpable as b/l Capillary Fill time < 5 seconds to digits 1-5 b/l Skin temperature warm to warm proximal to distal b/l Hair growth present to digits Neurological: intact light touch/epicritic sensation b/l intact protective sensation no significant neurological deficits Dermatological: Nails 1,2,3 right and 1,2,3 left appear discolored Callus present to left 5th metatarsal Musculoskeletal/Orthopaedic: Patient has no pain to palpation of b/l feet Foot type is pronated structurally AJ ROM is full with knee extended and flexed 1st MPJ is full when loaded and no pain or crepitus are noted with ROM. MTJ, STJ are full and free of pain and crepitus. Rigid hammertoes 2-5 b/l +5/5 muscle strength dorsiflexion, plantarflexion, inversion, eversion b/l Radiographs: n/a ASSESSMENT: (L60.3) Onychodystrophy (primary encounter diagnosis) (M20.41, M20.42) Hammer toes of both feet PLAN: Discussed discolored toenails of mutliple toes of b/l feet. Discussed various etiologies not limited to fungus vs trauma vs repetiive irritation from shoe gear vs repetitive trauma from hammertoe deformity. If these were fungal, could consider oral medication vs laser procedure. Other options discussed include removal of toenails. Patient may be interested in lamisil pending results from fungal culture. Fungal culture obtained. Will send this for culture. If fungus present, could consider lamisil. If no fungus present, could monitor vs consider removal. Will call with results. Discussed hammertoe. Hammertoe likely increasing pressure on aly of toes. This may lead to nail deformity. Discussed options for hammertoe not limited to padding vs inserts vs surgery. Presented inserts to patient. Patient may consider. Callus reduced to left foot with dremmel. Will call with results. BRUNO Chaudhary DPM Podiatry [address] [place] [id number] Dept: [phone] Dept * Tj Jamil RN - 04/12/2024 9:[address] Velasco Becky was provided with Powerstep Gel Inserts, size 9-10.5 Womens, and instructed/educated in its application, wear, and care. All questions were answered, and patient was able todemonstrate competence with the necessary skills to utilize the above equipment. Tj Jamil RN * Blessing Sheets LPN - 04/12/2024 8:05 AM EDT AMB ROOMING INTAKE FLOWSHEET DATA Patient presents with: Left Foot - nail deformity , Numbness, New Right Foot - nail deformity , Numbness, New Blessing MAR Sheets documented in this encounterOhiohealth Arthur [facility]06-25-2024 Instructions* Patient Instructions* Anupam Velasco - 04/12/2024 8:47 AM EDT Will monitor fungal culture If fungal culture confirms fungal elements, can consider oral medication If fungal culture is negative, can keep nail filed down or consider removal If you need anything, please do not hesitate to contact office or cell: [phone] documented in this encounterOhiohealth Arthur [facility]04-29-2024 Instructions* Patient Instructions* Becky Ireland APRN.CNP - 02/15/2024 8:52 AM EDT Health Promotion: - Eat healthy -- go to [employer]gov to get started - Have a yearly physical - Mammogram yearly after age 40 - Get at least 30 minutes of physical activity daily - Get at least 7 to 8 hours of sleep each night - Reach and maintain a healthy weight - Get help to quit or don't start smoking - Limit alcohol use to one drink or less - Do not use illegal drugs or misuse prescription drugs - Wear a helmet when riding a bike and wear protective gear for sports - Wear a seatbelt in cars and not text and drive - Wear sunscreen documented in this encounterOhio[facility]29[facility] History of Present illness Narrative* Becky Ireland APRN.CNP - 02/15/2024 8:05 AM EDT This is a 53 year old female who presents today with: Patient presents with: Yearly Exam HISTORY OF PRESENT ILLNESS: Becky Huffman is a 53 year old female. Patient presents with: Yearly Exam Pt presents today for yearly follow-up/Wellness exam. No significant problems/concerns today. REVIEW OF SYSTEMS GENERAL: No weight loss, malaise or fevers/chills HEENT: Negative for frequent or significant headaches, No changes in hearing or vision. Routine exams d/t plaquenil. Wears readers. + floaters. NECK: Negative for lumps, goiter, pain and significant neck swelling RESPIRATORY: Negative for cough, hemoptysis, wheezing, dyspnea or shortness of breath CARDIOVASCULAR: Negative for chest pain, leg swelling, orthopnea, or palpitations GI: No nausea, vomiting, or diarrhea/constipation. No hematochezia/melena. No heartburn or reflux symptoms. ? IBS symptoms -- sometimes some urgent stooling. Up to date w/ colonoscopy -- was given 8 year clearance. : No history of dysuria, frequency or incontinence MUSCULOSKELETAL: Negative for joint pain or swelling. RA symptoms controlled. Will have flares. SKIN: Negative for lesions, rash, and itching. Admits that should follows w/ dermatology for routine skin checks. ENDOCRINE: Negative for cold or heat intolerance, polyuria, polydipsia and goiter NEURO: No history of headaches, syncope, paralysis, seizures or tremors RA: follows with rheumatology. Symptoms controlled/stable. Gets regular labwork ever 3 months. Toenails: Continues with problems. Lost a toenail. Thickened and yellowed. Breast CA: Follows w/ oncology. REVIEW OF SYSTEMS GENERAL: No weight loss, malaise or fevers/chills HEENT: Negative for frequent or significant headaches, No changes in hearing or vision. NECK: Negative for lumps, goiter, pain and significant neck swelling RESPIRATORY: Negative for cough, hemoptysis, wheezing, dyspnea or shortness of breath CARDIOVASCULAR: Negative for chest pain, leg swelling, orthopnea, or palpitations GI: No nausea, vomiting, or diarrhea/constipation. No hematochezia/melena. No heartburn or reflux symptoms. : No history of dysuria, frequency or incontinence MUSCULOSKELETAL: Negative for joint pain or swelling. Intermittent joint pain with weather changes. SKIN: Negative for lesions, rash, and itching ENDOCRINE: Negative for cold or heat intolerance, polyuria, polydipsia and goiter NEURO: No history of headaches, syncope, paralysis, seizures or tremors PAST MEDICAL HISTORY: PAST MEDICAL HISTORY Diagnosis Date Breast cancer (HCC) 2019 PMH - PAST MEDICAL HISTORY OF FATIGUE PMH - PAST MEDICAL HISTORY OF achy joints Premenstrual tension syndromes PMS Rheumatoid arthritis involving multiple sites (HCC) 05/20/2021 Rheumatoid arthritis(714.0) PAST SURGICAL HISTORY Procedure Laterality Date COLONOSCOPY, COLORECTAL SCREEN 10/17/2019 Dr. Travis Elias, [facility]; 4mm sessile polyp in proximal sigmoid colon, many diverticula in sigmoid colon, repeat in 5yr's MASTECTOMY HX Bilateral 2019 with tissue flap reconstruction PAST SURGICAL HISTORY OF Right 12/28/2018 lumpectomy PROVIDE CHEMOTHERAPY AGENT 2019 RADIATION THERAPY 2019 REMOVAL OF OVARY(S) Bilateral 02/2020 SALPINGECTOMY Bilateral 02/2020 TONSILLECTOMY PRIMARY/SECONDARY <AGE 12 Tonsillectomy ALLERGIES Patient has no known allergies. MEDICATIONS Current Outpatient Medications Medication Sig anastrozole (ARIMIDEX) 1 mg tablet Take 1 tablet by mouth once daily. hydrOXYchloroQUINE (PLAQUENIL) 200 mg tablet Take 200 mg by mouth once daily. cholecalciferol, vitamin D3, (VITAMIN D3 ORAL) Take 2,000 Units by mouth once daily. certolizumab pegol (CIMZIA SUBCUTANEOUS) Inject 200 mg subcutaneously. Twice a month calcium carbonate/vitamin D3 (CALCIUM 600 + D ORAL) Take 1 tablet by mouth once daily. leflunomide (ARAVA) 20 mg tablet Take 20 mg by mouth once daily. ferrous sulfate 325 mg (65 mg iron) tablet Take 325 mg by mouth once daily. DAILY MULTIVITAMIN TAB Take 1 tablet by mouth once daily. No current facility-administered medications for this visit. FAMILY HISTORY Problem Relation Age of Onset Cancer Mother throat - radiation Cancer Father LUNG Hypertension Brother Diabetes Brother type 2 Hypertension Brother other (CHF) Maternal Grandfather Hypertension Paternal Grandfather Heart Paternal Grandfather No Known Problems Daughter Diabetes Son Type 1 Cancer Other Cancer Other Social History Tobacco Use Smoking status: Never Smokeless tobacco: Never Vaping Use Vaping Use: Never used Substance Use Topics Alcohol use: No Drug use: No EXAM: BP 110/64 Pulse 82 Resp 16 Ht 167.5 cm (5' 5.95) Wt 64 kg (141 lb) LMP 12/04/2016 [id number]% BMI 22.80 kg/m PHYSICAL EXAM: General Appearance: Well appearing, alert, in no acute distress, well-hydrated, well nourished.. Skin: Skin color, texture, turgor normal, no suspicious rashes or lesions. Toenails discolored and thickened. Head: Normocephalic, no masses, lesions, tenderness or abnormalities. Eyes: Anicteric sclera. Extraocular movements are intact. . Ears: External ears normal, canals clear, Normal TMs bilaterally. Oropharynx: Lips, mucosa, and tongue normal, teeth and gums normal, oropharynx normal. Neck: Supple, no adenopathy; thyroid symmetric, normal size, no bruits. Lungs: Lungs clear to auscultation. No wheezing, rhonchi, rales.. Heart: RRR without murmur, gallop, or rubs. No ectopy Abdomen: Abdomen soft, non-tender. Bowel sounds normal. No masses, organomegaly. Extremities: No deformities, edema, skin discoloration, clubbing or cyanosis. Good capillary refill. . Neurologic: Gait normal. ASSESSMENT/PLAN: 1. Wellness examination - ICD9: V70.0, ICD10: Z00.00 (primary diagnosis) Lab orders given to do with next lab draw. - COMPLETE BLOOD COUNT AND DIFFERENTIAL - COMPREHENSIVE METABOLIC PANEL - LIPID PANEL BASIC Health Promotion: - Eat healthy -- go to [employer]gov to get started - Have a yearly physical - Mammogram yearly after age 40 - Get at least 30 minutes of physical activity daily - Get at least 7 to 8 hours of sleep each night - Reach and maintain a healthy weight - Get help to quit or don't start smoking - Limit alcohol use to one drink or less - Do not use illegal drugs or misuse prescription drugs - Wear a helmet when riding a bike and wear protective gear for sports - Wear a seatbelt in cars and not text and drive - Wear sunscreen 2. Toenail deformity - ICD9: 703.9, ICD10: L60.8 Pt is noted to have hammer toes. ? fungal vs traumatic changes to toenails. - CONSULT TO PODIATRY 3. Rheumatoid arthritis involving multiple sites, unspecified whether rheumatoid factor present (HCC) - ICD9: 714.0, ICD10: M06.9 Continue per rheumatology. 4. Malignant neoplasm of central portion of right breast in female, estrogen receptor positive (HCC) - ICD9: 174.1, V86.0, ICD10: C50.111, Z17.0 Continue per oncology. Discussed treatment plan and patient voices understanding. Patient's questions answered appropriately. Medications and potential side effects were discussed and patient voices understanding. Return to the office as scheduled or as needed for worsening/no improvement. Becky Ireland APRN.RAY documented in this encounterOhiohealth [facility]04-08-2024 NotePap Smear Specimen AdequacyApril 2023 11:13amComment.Satisfactory for evaluation. Endocervical component may not bedistinguished in cases of atrophy.[facility] INTERFACED A#[id number] Samaritan HospitalComment on above:Satisfactory for evaluation. Endocervical component may not bedistinguished in cases of atrophy. 12-17-2023 Instructions* Patient Instructions* Lit Mcmullen APRN.CNP - 12/17/2023 8:03 AM EST STREP INFECTIONS: Streptococcal bacteria can cause a sore throat, ear and sinus infections, and skin diseases. Strep throat is diagnosed by a special throat swab or culture test. These infections require either an antibiotic shot or an oral antibiotic medicine to get rid of all the bacteria and prevent rheumatic fever, a dangerous complication. The symptoms of Strep infection, however, usually get better after just 2-3 days of drug treatment. These infections are very contagious; any close contacts who have a fever, sore throat, or illness symptoms should see their doctor right away. Strep is no longer contagious after 24 hours of antibiotic treatment so you may return to school or work if your fever and pain are better in one day. Strep infections can cause serious complications including throat abscess, rheumatic fever and kidney disease, so be sure to take all your antibiotic medicine. See your doctor or return here if your symptoms worsen or are not improved in 3 days or for difficulty breathing or inability to swallow. documented in this encounterOhiohealth [facility]02-29-2024 History of Present illness Narrative* Lit Mcmullen APRN.RAY - 12/17/2023 8:01 AM EST Subjective HPI HPI Becky Huffman is a 53 year old female who presents today for CC of st, fever, congestion . Thisstarted 1 day ago. Has tried otc medication for relief. Symptoms are worsened by nothing. Risk factors sick exposures at work. .Patient presents with: Fever: [place], swollen throat x 1 day PAST MEDICAL HISTORY Diagnosis Date Breast cancer (HCC) 2019 PMH - PAST MEDICAL HISTORY OF FATIGUE PMH - PAST MEDICAL HISTORY OF achy joints Premenstrual tension syndromes PMS Rheumatoid arthritis involving multiple sites (HCC) 05/20/2021 Rheumatoid arthritis(714.0) PAST SURGICAL HISTORY Procedure Laterality Date COLONOSCOPY, COLORECTAL SCREEN 10/17/2019 Dr. Travis Elias, [facility]; 4mm sessile polyp in proximal sigmoid colon, many diverticula in sigmoid colon, repeat in 5yr's MASTECTOMY HX Bilateral 2019 with tissue flap reconstruction PAST SURGICAL HISTORY OF Right 12/28/2018 lumpectomy PROVIDE CHEMOTHERAPY AGENT 2019 RADIATION THERAPY 2019 REMOVAL OF OVARY(S) Bilateral 02/2020 SALPINGECTOMY Bilateral 02/2020 TONSILLECTOMY PRIMARY/SECONDARY <AGE 12 Tonsillectomy ALLERGIES Patient has no known allergies. MEDICATIONS anastrozole (ARIMIDEX) 1 mg tablet Take 1 tablet by mouth once daily. hydrOXYchloroQUINE (PLAQUENIL) 200 mg tablet Take 200 mg by mouth once daily. cholecalciferol, vitamin D3, (VITAMIN D3 ORAL) Take 2,000 Units by mouth once daily. certolizumab pegol (CIMZIA SUBCUTANEOUS) Inject 200 mg subcutaneously. Twice a month calcium carbonate/vitamin D3 (CALCIUM 600 + D ORAL) Take 1 tablet by mouth once daily. leflunomide (ARAVA) 20 mg tablet Take 20 mg by mouth once daily. ferrous sulfate 325 mg (65 mg iron) tablet Take 325 mg by mouth once daily. DAILY MULTIVITAMIN TAB Take 1 tablet by mouth once daily. amoxicillin (AMOXIL) 500 mg capsule Take 1 capsule by mouth two times a day for 10 days. FAMILY HISTORY Problem Relation Age of Onset Cancer Mother throat - radiation Cancer Father LUNG Hypertension Brother Diabetes Brother type 2 Hypertension Brother other (CHF) Maternal Grandfather Hypertension Paternal Grandfather Heart Paternal Grandfather No Known Problems Daughter Diabetes Son Type 1 Cancer Other Cancer Other Social History Tobacco Use Smoking status: Never Smokeless tobacco: Never Vaping Use Vaping Use: Never used Substance Use Topics Alcohol use: No Drug use: No Review of Systems Constitutional: Positive for fever and malaise/fatigue. HENT: Positive for congestion and sore throat. Negative for ear pain and nosebleeds. Respiratory: Negative for cough, shortness of breath and wheezing. Cardiovascular: Negative for chest pain. Musculoskeletal: Negative for neck pain. Skin: Negative for itching and rash. Objective Blood pressure 124/82, pulse 100, temperature 37.8 C (100.1 F), resp. rate 20, weight 65.2 kg (143 lb 12.8 oz), last menstrual period 12/04/2016, SpO2 97%. Physical Exam Constitutional: General: She is not in acute distress. Appearance: She is not toxic-appearing or diaphoretic. HENT: Head: Normocephalic and atraumatic. Nose: Nose normal. Mouth/Throat: Lips: [place]. Mouth: Mucous membranes are moist. Pharynx: Uvula midline. Posterior oropharyngeal erythema and uvula swelling present. No pharyngeal swelling or oropharyngeal exudate. Cardiovascular: Rate and Rhythm: Normal rate and regular rhythm. Heart sounds: Normal heart sounds, S1 normal and S2 normal. Pulmonary: Effort: Pulmonary effort is normal. Breath sounds: Normal breath sounds. Lymphadenopathy: Cervical: Cervical adenopathy present. Right cervical: Superficial cervical adenopathy present. Left cervical: Superficial cervical adenopathy present. Neurological: Mental Status: She is alert and oriented to person, place, and time. Gait: Gait is intact. ASSESSMENT/PLAN: 1. Strep throat - ICD9: 034.0, ICD10: J02.0 - suspect strep - Group A strep molecular testing positive - antibiotic as written - Discussed supportive care treatment with fluids, rest and analgesia. - The patient should follow up in 3-5 days if symptoms persist or worsen - AMOXICILLIN 500 MG CAPSULE Lit Mcmullen APRN.CNP documented in this encounterOhiohealth Arthur [facility]10-31-2023 History of Present illness Narrative* PodlogSana manley APRN.CNP - 08/18/2023 12:03 PM EDT 08/18/2023 Patient presents with: URI: Follow up, cough not getting any better. Some chest discomfort from cough. Seen in [place] [facility] care 08/15 SUBJECTIVE: This is a 53 year old that is here today for Above Complaints. Seen in [facility] on 08/15/2023 for URI symptoms that started earlier in the week. Negative COVID-19, influenza, and RSV. Using sudafed and saline nasal spray with little relief. Has intermittent cough, headaches, nasal congestion and head pressure. Denies fevers, muscle aches, sore throat, wheezing, dyspnea, orthopnea, nausea, vomiting or diarrhea PAST MEDICAL HISTORY Diagnosis Date Breast cancer ([facility]) 2018 PMH - PAST MEDICAL HISTORY OF FATIGUE PMH - PAST MEDICAL HISTORY OF achy joints Premenstrual tension syndromes PMS Rheumatoid arthritis involving multiple sites ([facility]) 05/20/2021 Rheumatoid arthritis(714.0) ALLERGIES Patient has no known allergies. MEDICATIONS Current Outpatient Medications Medication Sig anastrozole (ARIMIDEX) 1 mg tablet Take 1 tablet by mouth once daily. hydrOXYchloroQUINE (PLAQUENIL) 200 mg tablet Take 200 mg by mouth once daily. cholecalciferol, vitamin D3, (VITAMIN D3 ORAL) Take 2,000 Units by mouth once daily. certolizumab pegol (CIMZIA SUBCUTANEOUS) Inject 200 mg subcutaneously. Twice a month calcium carbonate/vitamin D3 (CALCIUM 600 + D ORAL) Take 1 tablet by mouth once daily. leflunomide (ARAVA) 20 mg tablet Take 20 mg by mouth once daily. ferrous sulfate 325 mg (65 mg iron) tablet Take 325 mg by mouth once daily. DAILY MULTIVITAMIN TAB Take one(1) tablet daily. No current facility-administered medications for this visit. Medications and allergies reviewed by this provider. SOCIAL HISTORY Social History Tobacco Use Smoking status: Never Smokeless tobacco: Never Vaping Use Vaping Use: Never used Substance Use Topics Alcohol use: No Drug use: No REVIEW OF SYSTEMS All other reviewed and negative other than HPI. OBJECTIVE: BP 124/86 Pulse 86 Temp 36.1 C (96.9 F) Resp 16 Wt 64.8 kg (142 lb 12.8 oz) LMP 12/04/2016 SpO2 95% BMI 23.22 kg/m . Vital signs reviewed by this provider. APPEARANCE Well appearing, alert, in no acute distress, well-hydrated, well nourished. EYES PERRLA, conjunctiva and sclera normal. EARS External ears normal, canals clear NOSE/SINUS positive findings: sinus tenderness maxillary bilateral, mucosa erythematous and swollen, purulent rhinorrhea THROAT normal, no erythema NECK Supple, no adenopathy; HEART RRR with normal S1 and S2, no murmurs, no gallops, no JVD appreciated LUNG clear to auscultation. No wheezes, rhonchi or rales SKIN Skin color, texture, turgor normal, no suspicious rashes or lesions to exposed skin Hepatitis B Vaccine(1 of 3 - 3-dose series) Never done Pneumococcal Vaccine(1 - PCV) Never done Covid-19 Vaccine(3 - Pfizer risk series) due on 07/06/2021 Diabetes Screening due on 09/29/2022 Depression Assessment Never done Influenza Vaccine(1) due on 06/19/2023 Colorectal Cancer Screening due on 10/17/2024 Lipid Screening due on 08/21/2025 Pap Testing due on 12/31/2025 HPV Testing due on 12/31/2025 DTaP,Tdap,Td Vaccine(2 - Td or Tdap) due on 07/11/2030 Shingrix Vaccine Completed HPV Vaccine Aged Out Mammogram Screening Discontinued Hepatitis C Screening Discontinued HIV Screening Discontinued ASSESSMENT/PLAN: 1. Sinus pressure - ICD9: 478.19, ICD10: J34.89 - Will begin treatment with Augmentin 875 mg PO BID for 10 days - The patient should also be given OTC cough and cold meds as needed and nasal saline gtts and suction prn for the first 5-7 days of treatment. - Supportive care with plenty of fluids, rest, and analgesia prn. - Follow up in 3-5 days if symptoms persist or worsen. - AMOXICILLIN 875 MG-POTASSIUM CLAVULANATE 125 MG TABLET Sana Podlogar, [employer].ATMOSPHERIC CHEMI[employer] Prescription instructions reviewed with patient as applicable. Patient advised if symptoms do not improve or if symptoms worsen sooner, to contact their primary care physician. Potential red flag symptoms discussed with the patient. Reviewed appropriate action plan to take if red flag symptoms occur. Patient agreeable to treatment plan. I spent a total of 20 minutes on the date of the service which included preparing to see the patient, [id number] patient care, completing clinical documentation, obtaining and/or reviewing separately obtained history, performing a medically appropriate examination, counseling and educating the pat ient/family/caregiver, and ordering medications, tests, or procedures. documented in this encounterOhiohealth Arthur [facility]10-28-2023 History of Present illness Narrative* Radha Beth APRN.CNP - 08/15/2023 9:56 AM EDT This note was created using [employer]. Subjective Becky Huffman is a 53 year old female. HPI starting with some sinus issues earlier in the week, then yesterday started with coughing. Now the coughing is causing chest discomfort from so much coughing and today is noticing more sinus drainage. Denies any fevers, but has been chilled. Sinus drainage is mostly clear with some yellow at times. She had a terrible headache yesterday and today it is mild. Has been using Sudifed. Review of Systems Constitutional: Positive for chills. HENT: Positive for congestion, ear pain, rhinorrhea and sinus pain. Respiratory: Positive for cough. Objective BP 128/80 Pulse 84 Temp 37.4 C (99.3 F) Resp 16 Wt 64.9 kg (143 lb) LMP 12/04/2016 CpV343% BMI 23.26 kg/m Physical Exam HENT: Head: Normocephalic. Right Ear: Tympanic membrane normal. Left Ear: Tympanic membrane normal. Nose: Congestion and rhinorrhea present. Mouth/Throat: Mouth: Mucous membranes are moist. Cardiovascular: Rate and Rhythm: Normal rate. Pulmonary: Breath sounds: Normal breath sounds. Neurological: Mental Status: She is alert. Assessment and Plan ASSESSMENT/PLAN: 1. Acute cough - ICD9: 786.2, ICD10: R05.1 - COVID & INFLUENZA A/B & RSV NAAT, ROUTINE - COVID NAAT, UPPER RESPIRATORY, ROUTINE - ROUTINE FLU A/B + RSV Will notify patient of test results. Radha Beth APRN.CNP Medical Decision Making: Problems: Moderate: New problem with uncertain prognosis Data: Unique test(s) ordered: 3+ Risk: Low: Low risk from testing/treatment Medical Decision Making Level: 4 - Moderate documented in this encounterOhiohealth Arthur [facility]07-14-2023 History of Present illness Narrative* Adelina Luis APRN.RAY - 05/01/2023 8:18 AM EDT Chief Complaint Patient presents with: Established Patient HPI: Becky Huffman is a 53 year old female who presents here today for follow up breast cancer. Per Dr. Stockton's previous note: H/o rheumatoid arthritis. She appreciated all hard lump in her right breast. US 12/06/2018: The palpable abnormality corresponds to a 6 mm x 12 mm x 12 mm irregular hypoechoic solid nodule. 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 ER (clone [id number]) >95%, moderate [place] (clone 16/1E2) 24%, weak Her-2Neu (clone [id number]) 2+ ADDENDUM IN SITU HYBRIDIZATION (LEIDY) FOR HER2 Interpretation: Not Amplified HER2 : CEP-17 Ratio: 1.3 Average HER2 Signal: 2.1 Average CEP-17 Signal: 1.65 Number of Tumor Cells Scanned: 50 MRI breast 12/21/2018: No MRI evidence of malignancy in left breast. The 1.9 cm x 1.8 cm x 1.8 cm irregular mass in the right breast upper outer aspect anterior depth is a known biopsy positive for malignancy. The 4 mm mass in the right breast upper outer aspect middle depth is consistent with a lymph node and is benign. Last menses ~2 years ago. Had some hot flashes. Mother--Throat cancer. RA--Diagnosed ~10 years ago. Initially manifested as bilateral knee swelling. She has been on various treatments over the last 10 years. She will have flares of joint pain predominantly in the wristsand hands when she's been working. Underwent partial mastectomy with sentinel lymph node biopsy followed by axillary dissection on 12/28/2018. Pathology: FROZEN SECTION DIAGNOSIS A. Right axillary sentinel lymph nodes, biopsy: Two out of two lymph nodes positive for macrometastatic carcinoma. MICROSCOPIC DIAGNOSIS A. Right axillary lymph nodes, biopsy: Two out of two lymph nodes, positive for metastatic carcinoma. See comment. B. 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 See cancer summary below. C. Right axillary dissection: Three out of eight lymph nodes, positive for metastatic carcinoma. See comment. D. Re-excision inferior margin: Negative for carcinoma. INVASIVE BREAST CANCER SUMMARY: (Including specimens A to D) Specimen - partial breast Procedure - excision with wire-guided localization Lymph node sampling - sentinel lymph node and axillary dissection Specimen integrity - multiple designated specimens (specimen B & D) Specimen size - lumpectomy specimen 4.5 x 3.5 x 3 cm Re-excision inferior margin - 5 x 3 x 1 cm Specimen laterality - right Tumor site - central portion of the right breast as per clinical information. Tumor size - 1.5 x 1.5 x 1.2 cm Tumor focality - single focus of invasive carcinoma Macroscopic and Microscopic extent of tumor: Skin - not present Nipple - not applicable Skeletal muscle - not present Ductal carcinoma in situ (DCIS) - no DCIS is present. Lobular carcinoma in situ (LCIS) - present Histologic type of invasive carcinoma - invasive carcinoma with ductal and lobular features (mixed type carcinoma). Histologic Grade (Karine grade): Glandular/tubular differentiation - score 3 Nuclear pleomorphism - score 3 Mitotic count - score 1 Overall grade - 2 (score of 7) Margins - Margins uninvolved by invasive carcinoma. The invasive carcinoma and lobular carcinoma in situ is 0.2 cm away from the inferior margin in lumpectomy specimen. Re-excision inferior margin measures 1 cm in thickness, overall the tumor is about 1.2 away from the inferior margin. The invasive carcinoma and lobular carcinoma in situ is 0.1 cm away from the anterior margin in lumpectomy specimen. Treatment effect: Response to presurgical (neoadjuvant) therapy - no known presurgical therapy. Lymph-Vascular invasion - not identified Dermal lymph-vascular invasion - not applicable Lymph nodes: Number of sentinel lymph nodes examined - 2 Total number of lymph nodes examined (sentinel and nonsentinel) - 10 Number of lymph nodes with macrometastases - 5 Number of lymph nodes with micrometastases and isolated tumor cells - 0 Size of largest metastatic deposit - 1.1 x 1.0 cm (measured microscopically). Extranodal extension - present, focal Method of evaluation of sentinel lymph nodes - H & E and multiple levels. Distant metastasis - not applicable Additional pathologic findings - extensive dense fibrosis and intraductal hyperplasia. Ancillary studies - previously performed on section of tumor ([id number] / [id number]). ER - positive (>95%, moderate) AZ - positive (24%, weak) Her2 izzy - equivocal (2+) Her2 by dual LEIDY - negative/not amplified Microcalcifications - not identified Clinical history - Please make reference to previous specimen ([id number]) right breast tissue, core biopsy with diagnosis of invasive mammary carcinoma with ductal and lobular features. PATHOLOGIC STAGE: pT1c pN2a Mx COMMENT A. The largest focus of metastatic deposit measures 1.1 x 1 cm, measured microscopically. Focal minimal extranodal extension is noted. B. Immunohistochemistry ([id number]) supports the diagnosis of invasive carcinoma with mixed ductal and lobular features and lobular carcinoma in situ. The tumor predominantly consists of invasive lobular carcinoma (>95%), pleomorphic variant. C. The largest focus of metastasis measures 0.8 x 0.7 cm, measured microscopically. Extranodal extension is not seen. Immunohistochemistry ([id number]) supports the above diagnosis. She underwent CT scan of chest, abdomen and pelvis as well as whole body bone scan at [facility]. No evidence of metastatic disease was discovered. Previous therapy: 1) AC x4; Taxol weekly x 10-last cycle 06/30/19 RADIATION:07/28/19 to 09/14/19 Current therapy:Arimidex Began after radiation. Pt. s/p lap. BSO Marcanthony. Pt. s/p b/l mastectomy/OTILIA done at [facility]. Recovered well. No new concerns today. Appetite:Good. Energy level:Good. Denies fevers or recent illness. Resp:denies cough or sob Cardiac:denies chest pain/palpitations GI:denies abd pain, n/v, moving bowels regularly :denies dysuria/hematuria Extrem:+joint pain They are just achy from time to time.-Followed by Rheum. was seen this week. Endo:+hot flashes Every now and then and it's quick. Neuro:+neuropathy to toes Pretty much the same. Skin:denies rashes/lesions Heme:denies bleeding The ROS is otherwise negative. Past medical history, appointments, medications, allergies reviewed. No changes. EXAM: BP 95/66 Pulse 74 Temp 36.1 C (96.9 F) (Temporal) Ht 167 cm (5' 5.75) Wt 66.5 kg (146 lb 8oz) LMP 12/04/2016 BMI 23.83 kg/m APPEARANCE Well appearing, alert, in no acute distress, well-hydrated, well nourished. HEART RRR with normal S1 and S2, no murmurs LUNG clear to auscultation BREAST FEMALE b/l mastectomy/recon OTILIA, no mass/nodule b/l LYMPH NODES No cervical lymphadenopathy, No supraclavicular lymphadenopathy, and No axillary lymphadenopathy. ABDOMEN bowel sounds normoactive, soft, non-tender EXTREMITIES No edema NEURO Awake, alert and oriented x 3, Normal gait, and No involuntary motions. SKIN Skin color, texture, turgor normal, no suspicious rashes or lesions ASSESSMENT/PLAN: 1. 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 It's grade 2 tumor with ER positive (>95%, moderate), AZ positive (24%, weak), and Her2/izzy 2+ and dual LEIDY negative. s/padjuvant chemotherapy with AC followed by Taxol. Radiation completed 09/14/19. S/p b/l mastectomy OTILIA at [facility] - No new concerning findings on exam. - Overall tolerating arimidex well. - Continue arimidex. - Follow up in 6 months. - Pt. aware to call office with any questions/concerns. The patient indicates understanding of these issues and agrees with the plan. All documentation from previous visit of 11/10/22-Dr. Stockton/myself was copied and pasted, documentation has been reviewed and edited as necessary for today's visit. Adelina Luis APRN.RAY documented in this encounterOhiohealth [facility]01-23-[facility]23 History of Present illness Narrative* Adelina Luis APRN.CNP - 11/10/2022 2:03 PM EST Chief Complaint Patient presents with: Established Patient HPI: Becky Huffman is a 52 year old female who presents here today for follow up breast cancer. Per Dr. Stockton's previous note: H/o rheumatoid arthritis. She appreciated all hard lump in her right breast. US 12/06/2018: The palpable abnormality corresponds to a 6 mm x 12 mm x 12 mm irregular hypoechoic solid nodule. 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 ER (clone 6F11) >95%, moderate AZ (clone 16/1E2) 24%, weak Her-2Neu (clone CB11) 2+ ADDENDUM IN SITU HYBRIDIZATION (LEIDY) FOR HER2 Interpretation: Not Amplified HER2 : CEP-17 Ratio: 1.3 Average HER2 Signal: 2.1 Average CEP-17 Signal: 1.65 Number of Tumor Cells Scanned: 50 MRI breast 12/21/2018: No MRI evidence of malignancy in left breast. The 1.9 cm x 1.8 cm x 1.8 cm irregular mass in the right breast upper outer aspect anterior depth is a known biopsy positive for malignancy. The 4 mm mass in the right breast upper outer aspect middle depth is consistent with a lymph node and is benign. Last menses ~2 years ago. Had some hot flashes. Mother--Throat cancer. RA--Diagnosed ~10 years ago. Initially manifested as bilateral knee swelling. She has been on various treatments over the last 10 years. She will have flares of joint pain predominantly in the wristsand hands when she's been working. Underwent partial mastectomy with sentinel lymph node biopsy followed by axillary dissection on 12/28/2018. Pathology: FROZEN SECTION DIAGNOSIS A. Right axillary sentinel lymph nodes, biopsy: Two out of two lymph nodes positive for macrometastatic carcinoma. MICROSCOPIC DIAGNOSIS A. Right axillary lymph nodes, biopsy: Two out of two lymph nodes, positive for metastatic carcinoma. See comment. B. 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 See cancer summary below. C. Right axillary dissection: Three out of eight lymph nodes, positive for metastatic carcinoma. See comment. D. Re-excision inferior margin: Negative for carcinoma. INVASIVE BREAST CANCER SUMMARY: (Including specimens A to D) Specimen - partial breast Procedure - excision with wire-guided localization Lymph node sampling - sentinel lymph node and axillary dissection Specimen integrity - multiple designated specimens (specimen B & D) Specimen size - lumpectomy specimen 4.5 x 3.5 x 3 cm Re-excision inferior margin - 5 x 3 x 1 cm Specimen laterality - right Tumor site - central portion of the right breast as per clinical information. Tumor size - 1.5 x 1.5 x 1.2 cm Tumor focality - single focus of invasive carcinoma Macroscopic and Microscopic extent of tumor: Skin - not present Nipple - not applicable Skeletal muscle - not present Ductal carcinoma in situ (DCIS) - no DCIS is present. Lobular carcinoma in situ (LCIS) - present Histologic type of invasive carcinoma - invasive carcinoma with ductal and lobular features (mixed type carcinoma). Histologic Grade (Karine grade): Glandular/tubular differentiation - score 3 Nuclear pleomorphism - score 3 Mitotic count - score 1 Overall grade - 2 (score of 7) Margins - Margins uninvolved by invasive carcinoma. The invasive carcinoma and lobular carcinoma in situ is 0.2 cm away from the inferior margin in lumpectomy specimen. Re-excision inferior margin measures 1 cm in thickness, overall the tumor is about 1.2 away from the inferior margin. The invasive carcinoma and lobular carcinoma in situ is 0.1 cm away from the anterior margin in lumpectomy specimen. Treatment effect: Response to presurgical (neoadjuvant) therapy - no known presurgical therapy. Lymph-Vascular invasion - not identified Dermal lymph-vascular invasion - not applicable Lymph nodes: Number of sentinel lymph nodes examined - 2 Total number of lymph nodes examined (sentinel and nonsentinel) - 10 Number of lymph nodes with macrometastases - 5 Number of lymph nodes with micrometastases and isolated tumor cells - 0 Size of largest metastatic deposit - 1.1 x 1.0 cm (measured microscopically). Extranodal extension - present, focal Method of evaluation of sentinel lymph nodes - H & E and multiple levels. Distant metastasis - not applicable Additional pathologic findings - extensive dense fibrosis and intraductal hyperplasia. Ancillary studies - previously performed on section of tumor ([id number] / [id number]). ER - positive (>95%, moderate) AZ - positive (24%, weak) Her2 izzy - equivocal (2+) Her2 by dual LEIDY - negative/not amplified Microcalcifications - not identified Clinical history - Please make reference to previous specimen ([id number]) right breast tissue, core biopsy with diagnosis of invasive mammary carcinoma with ductal and lobular features. PATHOLOGIC STAGE: pT1c pN2a Mx COMMENT A. The largest focus of metastatic deposit measures 1.1 x 1 cm, measured microscopically. Focal minimal extranodal extension is noted. B. Immunohistochemistry ([id number]) supports the diagnosis of invasive carcinoma with mixed ductal and lobular features and lobular carcinoma in situ. The tumor predominantly consists of invasive lobular carcinoma (>95%), pleomorphic variant. C. The largest focus of metastasis measures 0.8 x 0.7 cm, measured microscopically. Extranodal extension is not seen. Immunohistochemistry ([id number]) supports the above diagnosis. She underwent CT scan of chest, abdomen and pelvis as well as whole body bone scan at [facility]. No evidence of metastatic disease was discovered. Previous therapy: 1) AC x4; Taxol weekly x 10-last cycle 06/30/19 RADIATION:07/28/19 to 09/14/19 Current therapy:Arimidex Began after radiation. Pt. s/p lap. BSO Nara. Pt. s/p b/l mastectomy/OTILIA done at [facility]. Recovered well. No new concerns today. Appetite:Good. I would say normal. Wt. up. Energy level:Good. I get up at 5 a.m. Denies fevers or recent illness. Resp:denies cough or sob Cardiac:denies chest pain/palpitations GI:denies abd pain, n/v, moving bowels regularly :denies dysuria/hematuria Extrem:+joint pain I feel good for this time of year.-followed by Rheum. was seen 2 weeks ago today Endo:+hot flashes Every now and then and it's quick. It comes and goes quick. Neuro:+neuropathy to toes I'd say the same. Skin:denies rashes/lesions Heme:denies bleeding The ROS is otherwise negative. Past medical history, appointments, medications, allergies reviewed. No changes. EXAM: BP 111/82 Pulse 86 Temp 36.4 C (97.6 F) Ht 167 cm (5' 5.75) Wt 67.8 kg (149 lb 8 oz) LMP12/04/2016 SpO2 95% BMI 24.32 kg/m APPEARANCE Well appearing, alert, in no acute distress, well-hydrated, well nourished. HEART RRR with normal S1 and S2, no murmurs LUNG clear to auscultation BREAST FEMALE b/l mastectomy/recon OTILIA, no mass/nodule b/l LYMPH NODES No cervical lymphadenopathy, No supraclavicular lymphadenopathy, and No axillary lymphadenopathy. ABDOMEN bowel sounds normoactive, soft, non-tender, non-distended EXTREMITIES No edema NEURO Awake, alert and oriented x 3, Normal gait, and No involuntary motions. SKIN Skin color, texture, turgor normal, no suspicious rashes or lesions ASSESSMENT/PLAN: 1. 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 It's grade 2 tumor with ER positive (>95%, moderate), AZ positive (24%, weak), and Her2/izzy 2+ and dual LEIDY negative. s/padjuvant chemotherapy with AC followed by Taxol. Radiation completed 09/14/19. S/p b/l mastectomy OTILIA at [facility] - No new concerning findings on exam. - Overall tolerating arimidex well. - Continue arimidex. - Follow up in 6 months. - Pt. aware to call office with any questions/concerns. The patient indicates understanding of these issues and agrees with the plan. All documentation from previous visit of 05/12/22-Dr. Stockton/myself was copied and pasted, documentation has been reviewed and edited as necessary for today's visit. Adelina Luis APRN.CNP documented in this encounterOhiohealth [facility]12-23-2022 Miscellaneous Notes* Telephone Encounter - Benita Ortega [facility] - 10/10/2022 10:21 AM EST Patient has been identified by name and date of : Yes Last office visit in this department: Visit date not found RX INSTRUCTIONS: Patient aware RX will be sent to pharmacy. No need to notify patient. Patient phones requesting refills as follows: Requested Prescriptions Pending Prescriptions Disp Refills anastrozole (ARIMIDEX) 1 mg tablet 90 tablet 3 Sig: Take 1 tablet by mouth once daily. Please review and advise. Benita Rosa documented in this encounterOhiohealth Arthur [facility]08-04-2022 Miscellaneous Notes* Telephone Encounter - Radha Perdomo LPN - 05/22/2022 10:47 AM EDT I spoke with patient and informed her that Adelina usually holds the medication for 3 weeks to see ifsymptoms subside. Patient verbalized understanding and will contact office 06/09/2022, with symptom update. Radha Perdomo LPN * Telephone Encounter - Linn Rosa - 05/22/2022 10:17 AM EDT Patient called said she had an appointment with Adelina Luis on 05/12, at that visit they talkedabout not taking her Anastrozole for a while to see if symptoms would go away. She said she stoppedtaking Anastrozole Rx on 05/19. Asking when to restart RX Can be reached at [phone] Thank you Linn Rosa documented in this encounterOhiohealth Arthur [facility]07-25-2022 History of Present illness Narrative* Adelina Luis APRN.ATMOSPHERIC CHEMIST - 05/12/2022 8:08 AM EDT Chief Complaint Patient presents with: Established Patient HPI: Becky Huffman is a 52 year old female who presents here today for follow up breast cancer. Per Dr. Stockton's previous note: H/o rheumatoid arthritis. She appreciated all hard lump in her right breast. US 12/06/2018: The palpable abnormality corresponds to a 6 mm x 12 mm x 12 mm irregular hypoechoic solid nodule. 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 ER (clone 6F11) >95%, moderate AZ (clone 16/1E2) 24%, weak Her-2Neu (clone CB11) 2+ ADDENDUM IN SITU HYBRIDIZATION (LEIDY) FOR HER2 Interpretation: Not Amplified HER2 : CEP-17 Ratio: 1.3 Average HER2 Signal: 2.1 Average CEP-17 Signal: 1.65 Number of Tumor Cells Scanned: 50 MRI breast 12/21/2018: No MRI evidence of malignancy in left breast. The 1.9 cm x 1.8 cm x 1.8 cm irregular mass in the right breast upper outer aspect anterior depth is a known biopsy positive for malignancy. The 4 mm mass in the right breast upper outer aspect middle depth is consistent with a lymph node and is benign. Last menses ~2 years ago. Had some hot flashes. Mother--Throat cancer. RA--Diagnosed ~10 years ago. Initially manifested as bilateral knee swelling. She has been on various treatments over the last 10 years. She will have flares of joint pain predominantly in the wristsand hands when she's been working. Underwent partial mastectomy with sentinel lymph node biopsy followed by axillary dissection on 12/28/2018. Pathology: FROZEN SECTION DIAGNOSIS A. Right axillary sentinel lymph nodes, biopsy: Two out of two lymph nodes positive for macrometastatic carcinoma. MICROSCOPIC DIAGNOSIS A. Right axillary lymph nodes, biopsy: Two out of two lymph nodes, positive for metastatic carcinoma. See comment. B. 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 See cancer summary below. C. Right axillary dissection: Three out of eight lymph nodes, positive for metastatic carcinoma. See comment. D. Re-excision inferior margin: Negative for carcinoma. INVASIVE BREAST CANCER SUMMARY: (Including specimens A to D) Specimen partial breast Procedure excision with wire-guided localization Lymph node sampling sentinel lymph node and axillary dissection Specimen integrity multiple designated specimens (specimen B & D) Specimen size lumpectomy specimen 4.5 x 3.5 x 3 cm Re-excision inferior margin 5 x 3 x 1 cm Specimen laterality - right Tumor site central portion of the right breast as per clinical information. Tumor size 1.5 x 1.5 x 1.2 cm Tumor focality single focus of invasive carcinoma Macroscopic and Microscopic extent of tumor: Skin not present Nipple not applicable Skeletal muscle not present Ductal carcinoma in situ (DCIS) no DCIS is present. Lobular carcinoma in situ (LCIS) - present Histologic type of invasive carcinoma invasive carcinoma with ductal and lobular features (mixed type carcinoma). Histologic Grade (Karine grade): Glandular/tubular differentiation - score 3 Nuclear pleomorphism - score 3 Mitotic count score 1 Overall grade - 2 (score of 7) Margins - Margins uninvolved by invasive carcinoma. The invasive carcinoma and lobular carcinoma in situ is 0.2 cm away from the inferior margin in lumpectomy specimen. Re-excision inferior margin measures 1 cm in thickness, overall the tumor is about 1.2 away from the inferior margin. The invasive carcinoma and lobular carcinoma in situ is 0.1 cm away from the anterior margin in lumpectomy specimen. Treatment effect: Response to presurgical (neoadjuvant) therapy - no known presurgical therapy. Lymph-Vascular invasion not identified Dermal lymph-vascular invasion not applicable Lymph nodes: Number of sentinel lymph nodes examined - 2 Total number of lymph nodes examined (sentinel and nonsentinel) - 10 Number of lymph nodes with macrometastases - 5 Number of lymph nodes with micrometastases and isolated tumor cells 0 Size of largest metastatic deposit 1.1 x 1.0 cm (measured microscopically). Extranodal extension present, focal Method of evaluation of sentinel lymph nodes - H & E and multiple levels. Distant metastasis not applicable Additional pathologic findings extensive dense fibrosis and intraductal hyperplasia. Ancillary studies - previously performed on section of tumor ([id number] / [id number]). ER positive (>95%, moderate) AZ positive (24%, weak) Her2 izzy equivocal (2+) Her2 by dual LEIDY negative/not amplified Microcalcifications not identified Clinical history - Please make reference to previous specimen ([id number]) right breast tissue, core biopsy with diagnosis of invasive mammary carcinoma with ductal and lobular features. PATHOLOGIC STAGE: pT1c pN2a Mx COMMENT A. The largest focus of metastatic deposit measures 1.1 x 1 cm, measured microscopically. Focal minimal extranodal extension is noted. B. Immunohistochemistry ([id number]) supports the diagnosis of invasive carcinoma with mixed ductal and lobular features and lobular carcinoma in situ. The tumor predominantly consists of invasive lobular carcinoma (>95%), pleomorphic variant. C. The largest focus of metastasis measures 0.8 x 0.7 cm, measured microscopically. Extranodal extension is not seen. Immunohistochemistry ([id number]) supports the above diagnosis. She underwent CT scan of chest, abdomen and pelvis as well as whole body bone scan at [facility]. No evidence of metastatic disease was discovered. Previous therapy: 1) AC x4; Taxol weekly x 10-last cycle 06/30/19 RADIATION:07/28/19 to 09/14/19 Current therapy:Arimidex Pt. s/p lap. BSO Marcanthony. Pt. s/p b/l mastectomy/OTILIA done at [facility] 7 weeks ago. Recovered well. No new concerns today. Appetite:It's good. Energy level:Good. Denies fevers. Resp:denies cough or sob Cardiac:denies chest pain/palpitations GI:occ. abd it's my gut health-I know if I eat certain foods my gut will scream at me, denies n/v, moving bowels regularly :denies dysuria/hematuria Extrem:+joint pain They feel really good today.-followed by Rheum. Endo:+hot flashes Not really daily. Maybe one. Neuro:+neuropathy to toes Still in my feet. stable Skin:denies rashes/lesions Heme:denies bleeding The ROS is otherwise negative. Past medical history, appointments, medications, allergies reviewed. No changes. EXAM: BP 101/72 Pulse 68 Temp 36.7 C (98 F) (Temporal) Wt 64.2 kg (141 lb 8 oz) LMP 12/04/2016 BMI 22.61 kg/m APPEARANCE Well appearing, alert, in no acute distress, well-hydrated, well nourished. HEART RRR with normal S1 and S2, no murmur LUNG clear to auscultation BREAST FEMALE b/l mastectomy/recon OTILIA, no mass/nodule b/l LYMPH NODES No cervical lymphadenopathy, No supraclavicular lymphadenopathy and No axillary lymphadenopathy. ABDOMEN bowel sounds normoactive, soft, non-tender, non-distended, without organomegaly or palpablemasses EXTREMITIES No edema NEURO Awake, alert and oriented x 3, Normal gait and No involuntary motions. SKIN Skin color, texture, turgor normal, no suspicious rashes or lesions ASSESSMENT/PLAN: 1. 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 It's grade 2 tumor with ER positive (>95%, moderate), AZ positive (24%, weak), and Her2/izzy 2+ and dual LEIDY negative. s/padjuvant chemotherapy with AC followed by Taxol. Radiation completed 09/14/19. S/p b/l mastectomy OTILIA at [facility] - No new concerning symptoms.. - Overall tolerating arimidex well. - Continue arimidex. - Follow up in 6 months. - Pt. aware to call office with any questions/concerns. The patient indicates understanding of these issues and agrees with the plan. All documentation from previous visit of 11/26/21-Dr. Stockton/myself was copied and pasted, documentation has been reviewed and edited as necessary for today's visit. Adelina Luis APRN.RAY documented in this encounterOhiohealth Arthur [facility]12-13-2021 NotePROCEDURE: IR SCLEROTHERAPY FLUID COLLECTION PERCUTANEOUS W/ IMAGE GUIDANCE (09/30/2021 13:53 PM) CLINICAL INDICATIONS: 51 year old woman with history of breast carcinoma and bilateral mastectomy with free flap reconstruction. She developed a post-operative seroma in the periumbilical abdominal wall for which she had a drain placed 08/16/2021. This was removed a few days later after output diminished, but the collection has recurred. COMPARISON: Abdomen ultrasound September 23, 2021. CONSENT: Following discussion of the risks, benefits, and alternatives of the procedure, written informed consent was obtained. SEDATION: I performed Moderate Sedation which included the presence of a nurse that assisted in monitoring the patient's level of consciousness and physiologic status. After administration of sedative medication(s), I spent 33 minutes of continuous [id number] time with the patient. PROCEDURE MEDICATIONS: 1:17 PM 09/30/21 fentaNYL (SUBLIMAZE) injection 0-300 mcg 50 mcg Given Rate: 0 Route: Intravenous; 1:17 PM 09/30/21 midazolam (VERSED) injection 0-10 mg 1 mg Given Rate: 0 Route: Intravenous; 1:26 PM 09/30/21 fentaNYL (SUBLIMAZE) injection 0-300 mcg 50 mcg Given Rate: 0 Route: Intravenous; 1:26 PM 09/30/21 midazolam (VERSED) injection 0-10 mg 1 mg Given Rate: 0 Route: Intravenous; 1:50 PM 09/30/21 iohexol (OMNIPAQUE) 300 MG/ML vial 150 mL 5 mL Given Rate: 0 Route: Intravenous; 1:50 PM 09/30/21 lidocaine 2 % injection 0-400 mg 4 mL Given Rate: 0 Route: Infiltration; 1:50 PM 09/30/21 sodium tetradecyl sulfate 3 % injection 0.5 mL 8 mL Given Rate: 0 Route: Intravenous; HUMAN RESOURCES SUPPORT SPECIALIST(S): Preet Adams MD COMPLICATIONS: None immediate TECHNIQUE: Procedure Performed: 1. Placement of a 10-Mauritian percutaneous drainage catheter into the ventral abdominal wall seroma under sonographic and fluoroscopic guidance. 2. Instillation of sclerosant into the seroma along the newly placed drain. Position: The patient was transferred to the IR laboratory and positioned supine on the procedural table. Time Out: A time out was performed prior to the procedure in the presence of the patient and all personnel involved in the case. The patient's identity, procedure type, procedure side/site, and allergies were verified. Procedure: Preliminary ultrasound identified the ventral abdominal wall seroma corresponding to the abnormality identified on recent imaging. An appropriate skin entry site was selected. The infraumbilical ventral abdominal wall was prepared and draped using maximum sterile barrier technique. This consisted of cap, mask, hand hygiene, sterile gown and gloves, 2% Chlorhexidine solution for cutaneous antisepsis and occlusive sterile draping of the field. The skin and soft tissue over the target were anesthetized with lidocaine. A Yueh needle was directed into the collection under direct ultrasound guidance. An image of the target was saved to the imaging archive system. A stiff wire was placed, the tract was dilated, and a 10-Mauritian pigtail drainage catheter was placed. Position of the drain was confirmed by fluoroscopy. The catheter was secured to the skin with a suture, and it was connected to a drainage bag. Approximately 150 mL translucent yellow fluid was aspirated. Contrast was instilled along the drain which delineated the irby of the seroma. 75 mL of a foamed solution containing Sotradecol 3%, saline, and air was instilled along the indwelling drain, and the drain was clamped. The area was then cleaned and dressed appropriately. FINDINGS: Ventral abdominal wall seroma accounting for abnormality seen on ultrasound dated 09/23/2021. Approximately 150 mL translucent yellow fluid aspirated. About 75 mL of foamed Sotradecol 3% with saline was instilled into the seroma along the drain. IMPRESSION: 1. Placement of a 10-Mauritian percutaneous drainage catheter into the ventral abdominal wall seroma using sonographic and fluoroscopic guidance. 2. Instillation of sclerosant along the new place drain. 3. Drain was left clamped upon procedure completion with sclerosant left to dwell within the seroma. Patient was instructed to unclamp the drain and place to bulb suction and about 4 hours. 4. Patient was instructed to monitor drain output. Additional management to depend on this output. Most Recent Value Fluoro time: 0.2 Fluoro time measurement: minutes Rad Dose: 1 Rad Dose Measurement: mGy Meds Meds Event Details User 1:06 PM 09/30/21 Timeout: Sign-in Signed by Dominic Stafford RN at 09/30/2021 1:06 PM CG 1:17 PM 09/30/21 fentaNYL (SUBLIMAZE) injection 0-300 mcg 50 mcg Given Rate: 0 Route: Intravenous CG 1:17 PM 09/30/21 midazolam (VERSED) injection 0-10 mg 1 mg Given Rate: 0 Route: Intravenous CG 1:20 PM 09/30/21 Timeout: TimeOut Signed by Dominic Stafford RN at (more content not included)...[facility]08-03-2021 History of Present illness Narrative* Jignesh Vivas MD - 05/21/2021 10:30 AM EDT 1Is now Becky Huffman is a 51 y.o. female who presents to the [facility] for consult regarding a right breast cancer. Clinical Care Team: -Referring Provider for today's consult: Femi Elias MD -Primary Care Provider: Femi Elias History of Present Illness: Chief Complaint Patient presents with Follow-up Hx of right breast cancer Becky Huffman Breast Cancer Stage:lll: is a very pleasant 49-year-old female who comes to the clinic today in regards to for a 2nd opinion in regards to her recently diagnosed PALB2 genetic mutation. 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 She did undergo a right breast lumpectomy, sentinel lymph node biopsy, and axillary lymph node dissection. Her tumor measured 1.5 x 1.5 x 1.2 cm and she did have 5/10 positive lymph nodes. She then completed chemotherapy as well as radiation to her right chest wall. She did get genetic testing and was found to have the PALB2 mutation and has already had her ovaries removed. She has decided to proceed with bilateral total mastectomies and reconstruction and is coming here for a 2nd opinion. She presently is on anastrozole and overall tolerating it very well. The rest of her review of systems is essentially unremarkable. She does not have a family history of breast cancer. 08/28/2020: She returns to the clinic today for follow-up of her PALB2 mutation. She has elected toproceed with bilateral total mastectomies and reconstruction. She is going to undergo OTILIA flap reconstruction by Dr. Pelaez. 10/02/2020: She returns to the clinic for follow-up of her PALB2 mutation. She did elect to proceedwith bilateral total mastectomies and reconstruction. This procedure was performed on September 24, 2020. The final path report is as follows: Pathologic Diagnosis A. Right breast, right complete mastectomy: Benign breast parenchyma and nipple Changes of remote surgical procedure See addendum report from Dermatopathology B. Left breast, left prophylactic complete mastectomy: Benign breast parenchyma with changes of remote surgical procedure Benign nipple and skin C. Additional right breast skin, excision: Skin and subcutaneous tissue, negative for carcinoma See addendum report from Dermatopathology I did discuss the path report with her in detail. There were no specific findings. Overall she is tolerating her surgery very well. 11/13/2020: She returns to the clinic for follow-up of her carcinoma of the right breast. 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 She did undergo a right breast lumpectomy, sentinel lymph node biopsy, and axillary lymph node dissection. Her tumor measured 1.5 x 1.5 x 1.2 cm and she did have 5/10 positive lymph nodes. She then completed chemotherapy as well as radiation to her right chest wall. She did get genetic testing and was found to have the TNWD9awlisnsl and has already had her ovaries removed. She decided to proceed with bilateral total mastectomies and reconstruction. This procedure was performed on September 24, 2020. She returns to the clinic for follow-up today. She is really doing very well and has no new complaints referable to her chest wall today. She has been following up with Dr. Pelaez Her review of systems is unremarkable. 05/21/2021: She returns to the clinic for evaluation and follow-up of her carcinoma of the right breast. She was diagnosed with a stage III carcinoma of her right breast on December 28, 2017. Following her diagnosis, she did elect to proceed with a right breast lumpectomy sentinel lymph node biopsy and axillary lymph node dissection. Her path report did show a 1.5 cm tumor with 5/10 positive lymph nodes. She then completed adjuvant chemotherapy as well as radiation therapy to her right chest wall. She did get genetic testing following surgery and found to have the PALB2 mutation and already had her ovaries removed. On September 24, 2020, because of her mutation, she elected to proceed with bilateral total mastectomies and reconstruction. She is doing well and has no new complaints today. Her review of systems is unremarkable. I have reviewed Becky Huffman medical, surgical and other pertinent history in detail, and have updated medication and allergy information in the computerized patient record. Review of Systems: A twelve point review of systems has been completed. I have reviewed it with the patient and it is non-contributory to the above. Physical Exam: Vital Signs/LMP: BP 116/75 Pulse 74 Temp 97.6 F (36.4 C) Wt 66.7 kg (147 lb) BMI 24.09 kg/m Smoking Status Never Smoker General/Constitutional: Well developed, well nourished female, who looks their stated age of 51 y.o.. No acute distress. HEENT: Neck: Supple, non-tender, with no cervical, supraclavicular lymphadenopathy. Thyroid normal. Breast/Chest Wall: On exam of her chest wall, all of the incisions have healed very well. I do not feel any changes to her chest wall.. Assessment & Plan: Impression: Carcinoma right breast, clinical stage III Plan/Recommendations: She is going to return in 6 months for further evaluation and follow-up. Becky was seen today for follow-up. Diagnoses and all orders for this visit: Malignant neoplasm of right breast in female, estrogen receptor positive, unspecified site of breast [facility] History of Present illness Narrative* Annika Shannon PA-C - 05/21/2021 9:00 AM EDT Plastic and Reconstructive Surgery This patient was seen and examined by BENNY Reason for Visit Diagnosis: Right breast Procedures Performed: S/p left breast reduction for symmetry ([facility] 05/16/2020) S/p Bilateral mastectomy ([facility] 09/24/2020) S/p Immediate bilateral abdominally based free flap (OTILIA) breast reconstruction, ICG injection, bilateral sensory nerve reconstruction using allograft ([facility] 09/24/2020) Subjective Presents for previously scheduled follow-up. Pt is doing overall well. Back in March she noticed some fullness in her abdomen and didn't think much off it until April 21 weekend. She was encouraged bya friend to go to the Urgent care just to rule out a hernia due to the asymmetry of her abdomen. Urgent care referred her to Gen Surg where they ordered a CT showing a large seroma. No hernias or bulges. Her main concern is that she feels the fluid is pushing on her bowels and effecting her BM. NO fever, chills, fatigue, redness, pain or other signs of infection reported. Has had 1st dose of covid vaccine. Designer took her off of prednisone. Very happy with her breast reconstruction. Still thinking and unsure about nipple reconstruction or tattooing. Review of systems: No fevers/chills, SOB/CP, lower limb edema, or changes in urination or bowel movements. No wound symptoms such as redness, swelling, increasing pain, or drainage. Objective BP 116/75 (BP Location: Left arm, BP Position: Sitting) Pulse 74 Temp 97.6 F (36.4 C) (Oral) Resp 14 Wt 66.9 kg (147 lb 6.4 oz) SpO2 98% BMI 24.16 kg/m Smoking Status Never Smoker Estimated body mass index is 24.16 kg/m as calculated from the following: Height as of 10/16/20: 1.664 m (5' 5.5). Weight as of this encounter: 66.9 kg (147 lb 6.4 oz). General: Awake, alert, cooperative with examination. No acute distress. Respiratory: Non-labored breathing. No wheezes, rales, rhonchi. Abdomen: Soft, non-tender, mildly-distended along the incision. Incision well healed. Umbo viable. Slight seroma/fluid wave palpated along her incisions and distal to her umbo. Breasts: incisions well healed bilaterally. Breasts soft, supple, no evidence of hematoma or seroma. Skin warm, well-perfused no erythema or other signs of infection. Overall shape and volume is symmetric, nipples. Excessive skin along the superior skin paddle bilaterally. Extremities: Warm, well-perfused. No cyanosis, clubbing, edema. Assessment: 6 months Post-op, abdominal seroma Plan - reviewed CT results with pt - With sterile technique, abdominal seroma aspiration performed. Well tolerated. approximately 160cc SS fluid aspirated. - Watch for signs of infection - Discussed options for seroma; wait and watch, aspirated today, place a seroma cath and instill doxy, surgery to remove seroma capsule. - compression for the next 7 days - no restrictions - follow up 1 week -Patient instructed to call office with any questions or concerns before next appointment A total of 15 minutes of [id number] time was spent with the patient, of which more than 50% was spent counseling about the intra- and post-operative surgical plans. Annika Shannon PA-C documented in this [facility]08-03-2021 Instructions* Patient Instructions* Annika Shannon PA-C - 05/21/2021 9:00 AM EDT Follow up 1 week with Annika [facility] Author Akin Pradhan [facility] Note Date/Time February 13, 2025 12: 32pm [facility] Medical Records Department [address] [place] [address] Anesthesia Postop Eval I 02/13/25 1231 MR#: [id number] Acct: [id number] Name: BECKY HUFFMAN Rep #:[id number] : 1970 54 From: Akin Pradhan PCP: ROLANDO GarciaC Status:REG S DC Y Race: C Location: [place] [address] Anesthesia: Postop Eval I Current Vital Signs Temperature: 98.4 F Pulse Rate: 92 Blood Pressure: 100/69 Respiratory Rate: 16 Pulse Ox: 97 Oxygen Delivery Method: Room Air Assessment Airway patent: Yes Spontaneous unlabored respirations: Yes Mental status: Asleep nausea: No Vomiting: No Anesthesia Complication: No Fluid Hydration Crystalloid volume administer (ml): 700 Total IV fluid infused: 700 Progress Note Anesthesia document: Postop Eval 1 completed: Yes 02/13/25 1232 <Electronically signed by Akin Pradhan > Date _ Akin Roman Signature: Date CC: ~ Signed [facility] Work Phone: Consult note Author Dewayne skinny [facility] Note Date/Time February 13, 2025 1:1 4pm [facility] Medical Records Department [address] [place] [address] Anesthesia Postop Eval II 02/13/25 1307 MR#: [id number] Acct: [id number] Name: BECKY HUFFMAN Rep #:[id number] : 1970 54 From: Dewayne Parr MD PCP: ELIZABETH Garcia Status:REG S DC Y Race: C Location: [facility]- Anesthesia Postop Eval I Sum Postop Eval Completion status Anesthesia document: Postop Eval 1 completed: Yes Anesthesia Postop Eval I Summary Anesthesia Postop Eval I Summary: Anesthesia Postop Eval I: Assessment Summary Airway patent Yes 02/13/25 12:32 [email or web address] Spontaneous unlabored Yes 02/13/25 12:32 [email or web address] respirations Mental status Asleep 02/13/25 12:32 [email or web address] nausea No 02/13/25 12:32 [email or web address] Vomiting No 02/13/25 12:32 [email or web address] Anesthesia Postop Eval I: Fluid Summary Crystalloid volume administer 700 02/13/25 12:32 [email or web address] (ml) Colloids volume administered ( ml) Blood Product volume administered (ml) Total IV fluid infused 700 02/13/25 12:32 [email or web address] Anesthesia Postop Eval I: Summary Notes Anesthesia Complication No 02/13/25 12:32 [email or web address] Anesthesia Complication Comment: Post-operative progress note Anesthesia: Postop Eval II Evaluation Mental status: Awake Pain Level: 0 nausea: No Vomiting: No 02/13/25 1307 <Electronically signed by Dewayne Parr MD > Date _ Dewayne Parr MD Cosigner Signature: Date CC: ~ Signed [facility] Work Phone: Evaluation note* Diagnosis Onset Date Resolution Status BRCA gene positive acute Immunosuppressed status acut e [facility] Work Phone: Evaluation note* Diagnosis S/P reconstruction procedure- Primary Other postprocedural status Abdominal wall seroma, initial encounter [facility] Diagnosis Malignant neoplasm of right breast in female, estrogen receptor positive, unspecified site of breast- Primary [facility] Diagnosis Malignant neoplasm of central portion of right breast in female, estrogen receptor positive (HCC)- Primary [facility]* Diagnosis Malignant neoplasm of central portion of right breast in female, estrogen receptor positive (HCC)- Primary [facility]* Diagnosis Onset Date Resolution Status BRCA gene positive acute Immunosuppressed status acut e Encounter for routine gynecological examination noneactive [facility] Work Phone: Evaluation note* Diagnosis Malignant neoplasm of central portion of right breast in female, estrogen receptor positive (HCC)- Primary [facility]* Diagnosis Acute cough- Primary documented in this encounter [facility] note* Diagnosis Sinus pressure- Primary Other diseases of nasal cavity and sinuses documented in this encounter [facility] note* Diagnosis Strep throat- Primary Streptococcal sore throat documented in this encounter [facility] note* Diagnosis Onset Date Resolution Status BRCA gene positive acute Contact with or suspected ex posure to other viral communicable disease acute Immunosuppressed status acut e Rheumatoid arthritis chronic Encounter for routine gynecological examination noneactive [facility] Work Phone: Evaluation note* Diagnosis Wellness examination- Primary Toenail deformity Unspecified disease of nail Rheumatoid arthritis involving multiple sites, unspecified whether rheumatoid factor present (HCC) Malignant neoplasm of central portion of right breast in female, estrogen receptor positive (HCC) documented in this encounter [facility] note* Diagnosis Onychodystrophy- Primary Other specified disease of nail Hammer toes of both feet documented in this encounter [facility] note* Diagnosis Dermatitis of lip- Primary Angular cheilitis Diseases of lips [facility]* Diagnosis Onychodystrophy- Primary Other specified disease of nail [facility]* Diagnosis Malignant neoplasm of central portion of right breast in female, estrogen receptor positive (HCC)- Primary [facility]* Diagnosis Malignant neoplasm of central portion of right breast in female, estrogen receptor positive (HCC)- Primary [facility]* Diagnosis Influenza A- Primary Influenza with other respiratory manifestations URI, acute Acute upper respiratory infections of unspecified site Sore throat Acute pharyngitis [facility]* Diagnosis Sore throat- Primary Acute pharyngitis Acute pharyngitis, unspecified etiology Acute laryngitis Acute laryngitis, without mention of obstruction [facility]* Diagnosis Sore throat Acute pharyngitis Lymphadenopathy Enlargement of lymph nodes Oropharyngeal dysphagia Dysphagia, oropharyngeal phase History of breast cancer Personal history of malignant neoplasm of breast Throat fullness Other symptoms involving head and neck Chills (without fever) Malaise Other malaise and fatigue Arthralgia, unspecified joint documented [facility] this [facility]* Diagnosis Lymphadenopathy Enlargement of lymph nodes Painful breathing Painful respiration Exposure to influenza Contact with or exposure to other viral diseases History of breast cancer Personal history of malignant neoplasm of breast Malaise Other malaise and fatigue Arthralgia, unspecified joint Chills (without fever) [facility]* Diagnosis Sore throat- Primary Acute pharyngitis Lymphadenopathy Enlargement of lymph nodes Painful breathing Painful respiration Rheumatoid arthritis flare (HCC) Rheumatoid arthritis Acute pain of both shoulders Swelling of left wrist Oropharyngeal dysphagia Dysphagia, oropharyngeal phase Exposure to influenza Contact with or exposure to other viral diseases History of breast cancer Personal history of malignant neoplasm of breast Malaise Other malaise and fatigue Arthralgia, unspecified joint Throat fullness Other symptoms involving head and neck Nausea Nausea alone Chills (without fever) Sore throat Acute pharyngitis Lymphadenopathy Enlargement of lymph nodes Oropharyngeal dysphagia Dysphagia, oropharyngeal phase History of breast cancer Personal history of malignant neoplasm of breast Throat fullness Other symptoms involving head and neck Chills (without fever) Malaise Other malaise and fatigue Arthralgia, unspecified joint Lymphadenopathy Enlargement of lymph nodes Painful breathing Painful respiration Exposure to influenza Contact with or exposure to other viral diseases History of breast cancer Personal history of malignant neoplasm of breast Malaise Other malaise and fatigue Arthralgia, unspecified joint Chills (without fever) documented [facility] this [facility]* Diagnosis Fever in other diseases- Primary Arthritis of multiple sites due to other bacteria ([facility]) documented [facility] this encounter [facility]* Diagnosis Hypotension, unspecified hypotension type- Primary Tachycardia Tachycardia, unspecified Pleural effusion on right Unspecified pleural effusion Essential (primary) hypertension Unspecified essential hypertension Fatigue, unspecified type Pyogenic arthritis of multiple sites, due to unspecified organism ([facility]) Pleural effusion on right Unspecified pleural effusion documented [facility] this encounter [facility]* Diagnosis Pleural effusion on right Unspecified pleural effusion documented in this encounter [facility]* Diagnosis Anemia, unspecified type- Primary [facility]* Diagnosis Anemia, unspecified type- Primary documented in this encounter [facility]* Diagnosis Blood in stool- Primary Anemia, unspecified type Tachycardia Tachycardia, unspecified Essential (primary) hypertension Unspecified essential hypertension [facility]* Diagnosis Iron deficiency anemia, unspecified iron deficiency anemia type- Primary documented in this encounter [facility]* Diagnosis Malignant neoplasm of central portion of right breast in female, estrogen receptor positive (HCC)- Primary Iron deficiency anemia, unspecified iron deficiency anemia type Pleural effusion Unspecified pleural effusion documented [facility] this encounter [facility]* Diagnosis SOB (shortness of breath)- Primary Shortness of breath Tachycardia Tachycardia, unspecified Elevated sed rate Elevated sedimentation rate Elevated C-reactive protein (CRP) Pleural effusion Unspecified pleural effusion Anemia, unspecified type documented in this encounter [facility]* Diagnosis Elevated C-reactive protein (CRP) documented in this encounter [facility]* Diagnosis Pleural effusion on right- Primary Unspecified pleural effusion [facility]* Diagnosis Pleural effusion on right- Primary Unspecified pleural effusion documented in this encounter [facility]* Diagnosis Pleural effusion- Primary Unspecified pleural effusion Pleural effusion on right Unspecified pleural effusion [facility]* Diagnosis Iron deficiency anemia, unspecified iron deficiency anemia type Malignant neoplasm of central portion of right breast in female, estrogen receptor positive (HCC) Pleural effusion Unspecified pleural effusion Pleural effusion on right Unspecified pleural effusion documented [facility] this encounter [facility]* Diagnosis Parapneumonic effusion- Primary Other specified forms of effusion, except tuberculous History of pneumonia Personal history of pneumonia (recurrent) History of septic arthritis Personal history of arthritis Rheumatoid arthritis involving multiple sites with positive rheumatoid factor (HCC) documented in this encounter [facility]* Diagnosis Lymphadenopathy- Primary Enlargement of lymph nodes Oropharyngeal dysphagia Dysphagia, oropharyngeal phase History of breast cancer Personal history of malignant neoplasm of breast Malaise Other malaise and fatigue [facility] Diagnosis Iron deficiency anemia, unspecified iron deficiency anemia type- Primary [facility] Diagnosis Parapneumonic effusion Other specified forms of effusion, except tuberculous [facility] Diagnosis Parapneumonic effusion- Primary Other specified forms of effusion, except tuberculous [facility] Diagnosis Parapneumonic effusion- Primary Other specified forms of effusion, except tuberculous Rheumatoid arthritis involving multiple sites with positive rheumatoid factor (HCC) [facility] Diagnosis Parapneumonic effusion Other specified forms of effusion, except tuberculous [facility] Author Carlos Harrington [facility] Note Date/Time February 13, 2025 11: 20am [facility] Medical Records Department [address] [place] [address] History & Physical Exam 02/13/25 1118 MR#: [id number] Acct: [id number] Name: BECKY HUFFMAN Rep #:[id number] : 1970 54 From: Carlos Harrington DO PCP: ELIZABETH Garcia Status:REG S DC Location: [place] [address] HPI - General General Date of Admission: 02/13/25 Date of Service: 02/13/25 Chief Complaint: Lower GI bleeding HPI Narrative BECKY HUFFMAN, is a 54 F who presents for the evaluation of lower GI bleeding. PMHx of breast cancer and RA [facility] Admission 2..25-3.5.35 with septic wrist and bilateral shoulders. Underwent surgical drainage and IV antibiotics. [facility] ED 3. with fatigue and weakness. Work up revealing low Hgb 8.5 Pt here today for evaluation and to be scheduled for a colonoscopy. Pt has not had any further rectal bleeding since her last ED visit. She notes her hgb has trended upward since then and her PCP believes the low hemoglobin to be related to her chronic illnesses. She is no longer feeling fatigued or weak and thinks this was related to having influenza A. Her last colonoscopy was in [address] Elias with recommendation for repeat in 5 years so she is due at this time. [facility] Medical History History of echocardiogram Wears glasses Post-menopausal Cancer Low iron History of GI bleed Non-smoker BRCA gene positive Breast cancer metastasized to axillary lymph node Breast cancer, right breast Rheumatoid arthritis Home Medications ?Medication ?Instructions ?Recorded ?Last Taken ?Type multivitamin 1 tab PO DAILY general healt h 11/29/18 01/12/25 History anastrozole 1 mg tablet 1 mg PO DAILY arthritis 09/1901/12/25 History ferrous sulfate 325 mg (65 mg 325 mg PO MOWEFR anemia 10/13/19 01/13/25 History iron) tablet calcium 500 mg (as 1 ea PO BID def. 02/21/20 History carbonate)-vitamin D3 15 mcg (600 unit) tablet certolizumab pegol 400 mg/2 mL 200 mg subcut Q2W arthr itis 12/31/20 01/05/25 History (200 mg/mL x2) subcutaneous syringe kit (Cimzia) hydroxychloroquine 200 mg tablet 200 mg PO QHS arthrit is 07/09/21 01/12/25 History leflunomide 20 mg tablet 20 mg PO DAILY arthritis 01/12/25 History acetaminophen 500 mg tablet 1,000 mg PO Q8H PRN pain 0 01/13/25 Unknown History ascorbic acid (vitamin C) 500 mg 500 mg PO MOWEFR 01/18 02/10 Unknown History tablet (Vitamin C) Allergy/AdvReac Type Severity Reaction Status Date / Time No Known Allergies Allergy Verified 02/09/25 10:59 Family History Son Diabetes Grandfather Heart disease Mother Cancer possible throat cancer (Went through radiation) Father Cancer lung Surgical History History of thoracentesis History of incision and drainage S/P bilateral salpingo-oophorectomy S/P breast reconstruction S/P bilateral mastectomy Status post right breast lumpectomy (~12/2018) History of tonsillectomy Social History household members: none housing: apartment current occupational status: employed Smoking Status: Never smoker alcohol intake: current alcohol intake frequency: holidays/special occasions only substance use type: does not use caffeine: Yes what type of physical activity do you participate in: walking and aerobics frequency: 5-6 times per week seatbelt use: always do you feel safe at home: Yes additional social history: Patient works at [employer], home ROS Constitutional Constitutional: Denies fatigue, fever(s), poor appetite, weight gain or weight loss Gastrointestinal Gastrointestinal: Denies belching, bloating, change in bowel habits, change in stool character, chewing difficulty, coffee ground emesis, constipation, cramping, diarrhea, dyspepsia, dysphagia, early satiety, excessive flatus, fecalincontinence, heartburn, hematemesis, hematochezia, hemorrhoids, loose stools, melena, nausea, odynophagia, rectal bleeding, tenesmus, vomiting or weight changes Vital Signs Vital Signs Vital Signs: 02/13/25 11:10 Temperature 98 F Temperature Source Temporal Pulse Rate 117 H Respiratory Rate 16 Blood Pressure 98/81 H Blood Pressure Mean 86 Blood Pressure Source Monitor Blood Pressure Position Sitting Blood Pressure Location Left Arm Pulse Ox 98 Oxygen Delivery Method Room Air Weight Weight: 127 lb 13.89 oz Body Mass Index (BMI) 21.2 Physical Exam Const alert, oriented x3, no apparent distress and healthy appearing General Appearance: cooperative GI normal to inspection, nondistended, normoactive bowel sounds, soft to palpation,non-tender and non-distended Percussion: normal to percussion Rectal Exam: deferred Assessment & Plan Assessment/Plan (1) Blood in stool: (2) Rectal bleeding: PLAN: Assessment and Plan Assessment and Plan (1) Blood in stool: Status: Acute Plan: This is a 54 yo female pt here today for evaluation of anemia and blood in her stool. Pt with PMHx of breast cancer. Pt was recently hospitalized with three septic joints and underwent surgical drainage and IV antibiotics. Following this, She was diagnosed with flu A and found to have a low hemoglobin. SHe does endorse one 4 day episode of BRBPR but has not had anything since. She notes herhgb has increased since the ED. She is due for a screening colonoscopy so she will be scheduled for this today. -Colonoscopy -f/y after procuedre 02/13/25 1120 <Electronically signed by Carlos Harrington DO> Cosigner Signature (if applicable): CC: ELIZABETH Ireland; Carlos Harrington DO~ Signed [facility] Work Phone: Reason for referral (narrative)No reason for referral [facility] Work Phone: Reason for visit Narrative* MRI/CT (Routine) - Closed Specialty Diagnoses / Procedures Referred By John aljeo Referred To Contact Radiology / RADIO CT SCAN [facility] Diagnoses Elevated C-reactive protein (CRP) Elevated C-reactive protein (CRP) [R79.82] Procedures CT ANGIOGRAPHY CHEST W/CONTRAST/NONCONTRAST CTA WWO CHEST 400 Becky Ireland, AUTO PORTER.ATMOSPHERIC CHEMIST [address] [place] [address] Phone: tel: fax: RADIO CT SCAN [facility] [address] [place] [address] Phone: tel: Referral ID Status Reason Start Date Expiration Date Visits Re quested Visits Authorized [id number] Closed 01/31/2025 10/18/2025 1 1 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 ACP-Advance Directive ACP-Power of Eeg Tech Advance Directive Response Recorded Date/ Time Living Will No October 13 12:43pm Power of Eeg Tech No October 13, 2019 12:43pm Documents on File Type Date Recorded Patient Hand Candle Molder Expl anation HealthCare Power of Eeg Tech 09/23/2020 12:00 AM Advance Directives/Living Will 09/23/2020 12:00 AM Latest Code Status on File Code Status Date Activated Date Inactivated Comments Full Code 09/25/2020 7:45 AM Advance Directive Response Recorded Date/ Time Living Will No February 21, 2020 9: 53am Power of Eeg Tech No February 21, 2020 9:53am Advance Directive Response Recorded Date/ Time Living Will Yes December 27, 2024 11:19am Power of Eeg Tech No December 27 11:19am Living Will Yes December 16 12:46am Power of Eeg Tech No December 16, 2024 12:46am Advance Directive Response Recorded Date/ Time Living Will Yes December 27, 2024 11:19am Do you have a Healthcare Power of Eeg Tech? No December 27, 2024 11:19am Living Will No January 13, 2025 11:11am Do you have a Healthcare Power of Eeg Tech? No January 13, 2025 11:11am Living Will Yes December 16 12:46am Do you have a Healthcare Power of Eeg Tech? No December 16, 2024 12:46am Advance Directive Response Recorded Date/ Time Living Will Yes December 27, 2024 11:19am Do you have a Healthcare Power of Eeg Tech? No December 27, 2024 11:19am Living Will No January 13, 2025 11:11am Do you have a Healthcare Power of Eeg Tech? No January 13, 2025 11:11am Do you have a Healthcare Power of Eeg Tech? No February 09, 2025 11:04am Living Will Yes December 16 12:46am Do you have a Healthcare Power of Eeg Tech? No December 16, 2024 12:46am Advance Directive Response Recorded Date/ Time Living Will No January 13, 2025 11:11am Do you have a Healthcare Power of Eeg Tech? No January 13, 2025 11:11am Do you have a Healthcare Power of Eeg Tech? No February 09, 2025 11:04am Chief Complaint and Reason for Visit Chief Complaint Annual (PARA PROFESSIONAL) PAP Reason for Visit BRCA gene positive Immunosuppressed status Chief Complaint Annual (PARA PROFESSIONAL) Reason for Visit BRCA gene positive Immunosuppressed status Encounter for routine gynecological examination Chief Complaint Annual (PARA PROFESSIONAL) Reason for Visit BRCA gene positive Contact with or suspected exposure to other viral communicable disease Immunosuppressed status Rheumatoid arthritis Encounter for routine gynecological examination Chief Complaint Admit Date SEPTIC ARTHRITIS OF THE LEFT WRIST 2024 10:31pm SEPTIC ARTHRITIS OF THE LEFT WRIST 2024 12:10pm SEPTIC ARTHRITIS OF THE LEFT WRIST December 17, 2024 10:03am SEPTIC ARTHRITIS OF THE LEFT WRIST December 18, 2024 10:35am SEPTIC ARTHRITIS OF THE LEFT WRIST December 19, 2024 9:37am SEPTIC ARTHRITIS OF THE LEFT WRIST December 20, 2024 10:02am SEPTIC ARTHRITIS OF THE LEFT WRIST December 21, 2024 10:58am FEVER December 27, 2024 10: 02am Reason for Visit Admit Date Acute pain of left shoulder November 10:31pm Acute pain of right shoulder December 152024 10:31pm Bacteremia due to Gram-negative bacteria December 15, 2024 10:31pm Dehydration December 15, 2024 10:31pm Immunosuppressed status December 15 10:31pm Influenza A December 15, 2024 10:31pm Septic arthritis of shoulder, left 2024 10:31pm Septic arthritis of shoulder, right [email or web address] 10:31pm Septic arthritis of wrist, left December 15, 2024 10:31pm Rheumatoid arthritis December 15, 2024 10:31pm Chief Complaint Admit Date SEPTIC ARTHRITIS OF THE LEFT WRIST 2024 10:31pm SEPTIC ARTHRITIS OF THE LEFT WRIST 2024 12:10pm SEPTIC ARTHRITIS OF THE LEFT WRIST December 17, 2024 10:03am SEPTIC ARTHRITIS OF THE LEFT WRIST December 18, 2024 10:35am SEPTIC ARTHRITIS OF THE LEFT WRIST December 19, 2024 9:37am SEPTIC ARTHRITIS OF THE LEFT WRIST December 20, 2024 10:02am SEPTIC ARTHRITIS OF THE LEFT WRIST December 21, 2024 10:58am FEVER December 27, 2024 10: 02am DIZZINESS January 13, 2025 10: 48am Reason for Visit Admit Date Immunosuppressed status December 15 10:31pm Rheumatoid arthritis December 15, 2024 10:31pm Acute pain of left shoulder November 10:31pm Acute pain of right shoulder December 152024 10:31pm Bacteremia due to Gram-negative bacteria December 15, 2024 10:31pm Dehydration December 15, 2024 10:31pm Influenza A December 15, 2024 10:31pm Septic arthritis of shoulder, left Febru [email or web address] 10:31pm Septic arthritis of shoulder, right Febr uary 2024 10:31pm Septic arthritis of wrist, left December 15, 2024 10:31pm Chief Complaint Admit Date SEPTIC ARTHRITIS OF THE LEFT WRIST 2024 10:31pm SEPTIC ARTHRITIS OF THE LEFT WRIST u 2024 12:10pm SEPTIC ARTHRITIS OF THE LEFT WRIST December 17, 2024 10:03am SEPTIC ARTHRITIS OF THE LEFT WRIST December 18, 2024 10:35am SEPTIC ARTHRITIS OF THE LEFT WRIST December 19, 2024 9:37am SEPTIC ARTHRITIS OF THE LEFT WRIST December 20, 2024 10:02am SEPTIC ARTHRITIS OF THE LEFT WRIST December 21, 2024 10:58am FEVER December 27, 2024 10: 02am DIZZINESS January 13, 2025 10: 48am Blood in Stool February 03, 2025 2:0 9pm SHOULDER ARTHRITIS BILAT. RX HERE February 09, 2025 3:00pm Reason for Visit Admit Date Immunosuppressed status December 15 10:31pm Rheumatoid arthritis December 15, 2024 10:31pm Acute pain of left shoulder November 10:31pm Acute pain of right shoulder December [id number] 10:31pm Bacteremia due to Gram-negative bacteria December 15, 2024 10:31pm Dehydration December 15, 2024 10:31pm Influenza A December 15, 2024 10:31pm Septic arthritis of shoulder, left Febru [email or web address] 10:31pm Septic arthritis of shoulder, right Febr uary 2024 10:31pm Septic arthritis of wrist, left December 15, 2024 10:31pm Blood in stool February 03, 2025 2:0 9pm Blood in stool February 13, 2025 10: 37am Rectal bleeding February 13, 2025 10: 37am Chief Complaint Admit Date DIZZINESS January 13, 2025 10: 48am Blood in Stool February 03, 2025 2:0 9pm SHOULDER ARTHRITIS BILAT. RX HERE February 15, 2025 10:30am Annual (PARA PROFESSIONAL) May 08, 2025 2:32 pm Reason for Visit Admit Date Blood in stool February 03, 2025 2:0 9pm Blood in stool February 13, 2025 10: 37am Rectal bleeding February 13, 2025 10: 37am BRCA gene positive May 08, 2025 2:32 pm Immunosuppressed status May 08, 2025 2:32pm Rheumatoid arthritis May 08, 2025 2:3 2pm Encounter for routine gynecological exam ination May 08, 2025 2:32pm Reason for Referral Specialty Diagnoses / Procedures Referred By Contsramad t Referred To Contact Podiatry Diagnoses Toenail deformity Procedures CONSULT TO PODIATRY OFFICE/OUTPATIENT [facility] 60 MINUTES Becky Ireland APRN.ATMOSPHERIC CHEMIST [address] [place] [address] Referral ID Status Reason Start Date Expiration Date Visits Requested Visits Authorized [id number] Authorized PCP Requested Referral 02/15/2024 02/14/2025 1 1 Specialty Diagnoses / Procedures Referred By Contac t Referred To Contact Dermatology Diagnoses Dermatitis of lip Angular cheilitis Procedures CONSULT TO DERMATOLOGY Becky Ireland APRN.ATMOSPHERIC CHEMIST [address] [place] [address] Messi Benton MD [address] [place] [address] Referral ID Status Reason Start Date Expiration Date Visits Requested Visits Authorized [id number] Ref Not Required PCP Requested Referral 05/04/2024 05/04/2025 1 1 Additional Source Comments INFORMATION SOURCE (unrecogn ized section and content) DATE CREATED AUTHOR 02/07/2019 [facility] DATE CREATED AUTHOR AUTHOR'S ORGANIZ ATION 06/20/2020 [facility] DATE CREATED AUTHOR AUTHOR'S ORGANIZ ATION 04/04/2022 [facility] DATE CREATED AUTHOR AUTHOR'S ORGANIZ ATION 02/04/2025 [facility] DATE CREATED AUTHOR AUTHOR'S ORGANIZ ATION 02/12/2025 [facility] DATE CREATED AUTHOR AUTHOR'S ORGANIZ ATION 05/06/2025 [facility] DATE CREATED AUTHOR AUTHOR'S ORGANIZ ATION 05/08/2025 [facility] Goals (unrecognized section and content) Goals may be documented in a n alternate sectionGoals may be documented in an alternate sectionGoals may be documented in an alternate section Reason for Visit (unrecogniz ed section and content) Reason Comments Follow-up Reason Comments Follow-up Hx of right breast c ancer Reason Comments Established Patient Reason Comments Patient Question medication Reason Onset Date Comments Refill Request 10/10/2022 Reason Comments Cough Causing chest pain, with PALAFOX Reason Comments URI Follow up, cough not getting any better. Some chest discomfort from cough. Seen in express care 08/15 Reason Comments Fever PALAFOX, swollen throat x 1 day Reason Comments Yearly Exam Reason Comments nail deformity Numbness New Specialty Diagnoses / Procedures Referred By John alejo Referred To Contact Podiatry Diagnoses Toenail deformity Procedures CONSULT TO PODIATRY OFFICE/OUTPATIENT NEW HIGH MDM 60 MINUTES Becky Ireland, AUTO PORTER.ATMOSPHERIC CHEMIST [address] [place] [address] Referral ID Status Reason Start Date Expiration Date V isits Requested Visits Authorized [id number] Closed PCP Requested Referral 02/15/2024 02/14/2025 1 1 Reason Comments Future Appointment Reason Comments Acute Visit 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 and 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, 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 Reason Comments Patient Update Reason Onset Date Comments Refill Request 10/04/2024 Reason Comments Medication Problem Reason Comments Sinus Problem sinus pressure, drai nage, chills, low grade fever x 3 days Reason Comments Sore Throat congestion, headache and fever x 2 days Reason Comments Patient Update Patient Question Reason Comments Radiology US Specialty Diagnoses / Procedures Referred By John alejo Referred To Contact [facility] IMAGING Diagnoses Sore throat Lymphadenopathy Oropharyngeal dysphagia History of breast cancer Malaise Arthralgia, unspecified joint Throat fullness Chills (without fever) Procedures US HEAD/NECK SOFT TISSUE OTHER US SOFT TISSUE HEAD & NECK REAL TIME IMGE Hilda Coley, AUTO PORTER.ATMOSPHERIC CHEMIST [address] [place] [address] Phone: tel: fax: [place] [address] Referral ID Status Reason Start Date Expiration Date V isits Requested Visits Authorized [id number] Closed Auto-Generate d Referral 12/15/2024 01/14/2026 1 1 Reason Comments Pain (Shoulder Pain) Left shoulder Wrist Pain Reason Comments Plan of care for [facility] Reason Onset Date Comments Transitions of Care 12/23/2024 [facility] Discharg ed 12/21/24 Reason Comments Hospital F/U [facility] dc'd 12/21/24 dx: septic arthritis Reason Comments [facility] OT POC and concern of BP Results Reason Comments Home Health Request Reason Comments bp update Reason Comments Recheck BP check Reason Comments Recheck 2 week bp check Reason Comments New Patient Specialty Diagnoses / Procedures Referred By Contac t Referred To Contact Diagnoses Iron deficiency anemia, unspecified iron deficiency anemia type Procedures CONSULT TO HEMATOLOGY/ONCOLOGY OFFICE/OUTPATIENT NEW HIGH MDM 60 MINUTES Becky Ireland, GEMMA.ATMOSPHERIC CHEMIST [address] [place] [address] Phone: tel: fax: Referral ID Status Reason Start Date Expiration Date V isits Requested Visits Authorized [id number] Closed PCP Requested Referral 01/23/2025 01/23/2026 1 1 Reason Comments PIN CHASER would like to talk to Becky Ireland Reason Comments Recheck 1 week BP check Specialty Diagnoses / Procedures Referred By Contac t Referred To Contact Family Medicine / FAMILY MEDICINE Diagnoses Follow-up examination 1 week BP check Procedures OFFICE/OUTPATIENT ESTABLISHED MOD MDM 30 MIN 4C EST [facility] [address] [place] [address] Phone: tel: Becky Ireland, AUTO PORTER.ATMOSPHERIC CHEMIST [address] [place] [address] Phone: tel: fax: Referral ID Status Reason Start Date Expiration Date Visits Re quested Visits Authorized [id number] Closed 01/31/2025 10/18/2025 [address] Specialty Diagnoses / Procedures Referred By Contac t Referred To Contact CT IMAGING Diagnoses Iron deficiency anemia, unspecified iron deficiency anemia type Malignant neoplasm of central portion of right breast in female, estrogen receptor positive (HCC) Pleural effusion Procedures CT CHEST W IVCON DIAGNOSTIC COMPUTED TOMOGRAPHY THORAX W/CONTRAST Fran Gomez [address] [place] [address] Phone: tel: fax: [place] [address] Referral ID Status Reason Start Date Expiration Date V isits Requested Visits Authorized [id number] Closed Auto-Generate d Referral 02/07/2025 10/18/2025 1 1 Reason Comments New Patient Pleural effusion Effusion Reason Comments Results Reason Comments Patient Question Reason Comments Talk to provider Reason Comments Established Patient parapneumonic effusi on Reason Comments Request Outside Medical Records Specialty Diagnoses / Procedures Referred By Contac t Referred To Contact CT IMAGING Diagnoses Parapneumonic effusion Procedures CT CHEST WO IVCON DIAGNOSTIC COMPUTED TOMOGRAPHY THORAX W/O CNTRST Coy Loomis APRN.ATMOSPHERIC CHEMIST [address] [place] [address] Phone: tel: fax: [place] [address] Referral ID Status Reason Start Date Expiration Date V isits Requested Visits Authorized [id number] Closed Auto-Generate d Referral 04/18/2025 05/18/2026 1 1 Care Teams (unrecognized sec tion and content) Barrel Polisher Relationship Specialty Start Date End Date Femi Elias MD [address] [place] [phone] PCP - General Family Medicine 09/19/20 Javier Tolbert MD [address] [place] [phone] Designer Rheumatology 09/05/20 Barrel Polisher Relationship Specialty Start Date End Date Femi Elias MD [address] [place] [phone] PCP - General Family Medicine 09/19/20 Javier Tolbert MD [address] [place] [address] Designer Rheumatology 09/05/20 Barrel Polisher Relationship Specialty Start Date End Date Becky Ireland, AUTO PORTER.ATMOSPHERIC CHEMIST [address] [place] [address] PCP - General Family Practice 05/20/21 Maren Coffey LISW Scrubber Machine Tender 01/31/19 Shraddha House, RN Specialty Transfer And Pumphouse Operator Chief Oncology 02/09/19 Eda Yost MD, MD [address] [place] [address] Physician Radiation Oncology 07/06/19 Barrel Polisher Relationship Specialty Start Date End Date Becky Ireland, AUTO PORTER.ATMOSPHERIC CHEMIST [address] [place] [address] PCP - General Family Practice 05/20/21 Maren Coffey RN Scrubber Machine Tender 01/31/19 Shraddha House RN Specialty Transfer And Pumphouse Operator Chief Oncology 02/09/19 Eda Yost MD, [address] [place] [address] Physician Radiation Oncology 07/06/19 Barrel Polisher Relationship Specialty Start Date End Date Becky Ireland, AUTO PORTER.ATMOSPHERIC CHEMIST [address] [place] [address] PCP - General Family Medicine 05/20/21 Maren Coffey RN Scrubber Machine Tender 01/31/19 Shraddha House RN Specialty Transfer And Pumphouse Operator Chief Oncology 02/09/19 Eda Yost MD, MD [address] [place] [address] Physician Radiation Oncology 07/06/19 Team Status: Active Member Role Status Dates Dr. Femi Elias III, MD Family Provider Active No Primary Care Physician Primary Care Provider Active Team Status: Inactive Member Role Status Dates No Primary Care Physician Primary Care Provider, Refer ring Provider Active Dr. Nydia Bains MD Attending Provider Active Team Status: Inactive Member Role Status Dates No Primary Care Physician Primary Care Provider Active Dr. Nydia Bains MD Attending Provider, Referr ing Provider Active Barrel Polisher Relationship Specialty Start Date End Date Becky Ireland, AUTO PORTER.ATMOSPHERIC CHEMIST [address] [place] [address] PCP - General Family Medicine 05/20/21 Maren Coffey, RN Scrubber Machine Tender 01/31/19 Shraddha House RN Specialty Transfer And Pumphouse Operator Chief Oncology 02/09/19 Eda Yost MD, MD [address] [place] [address] Physician Radiation Oncology 07/06/19 Barrel Polisher Relationship Specialty Start Date End Date Becky Ireland, AUTO PORTER.ATMOSPHERIC CHEMIST [address] [place] [address] PCP - General Family Medicine 05/20/21 Maren Coffey RN Scrubber Machine Tender 01/31/19 Shraddha House RN Specialty Transfer And Pumphouse Operator Chief Oncology 02/09/19 Eda Yost MD, MD [address] [place] [address] Physician Radiation Oncology 07/06/19 Barrel Polisher Relationship Specialty Start Date End Date Becky Ireland, AUTO PORTER.ATMOSPHERIC CHEMIST [address] [place] [address] PCP - General Family Medicine 05/20/21 Maren Coffey RN Scrubber Machine Tender 01/31/19 Shraddha House RN Specialty Transfer And Pumphouse Operator Chief Oncology 02/09/19 Eda Yost MD, MD [address] [place] [address] Physician Radiation Oncology 07/06/19 Barrel Polisher Relationship Specialty Start Date End Date Becky Ireland APRN.ATMOSPHERIC CHEMIST [address] [facility] [place] [address] PCP - General Family Medicine 05/20/21 Maren Coffey, RN Scrubber Machine Tender 01/31/19 Shraddha House RN Specialty Transfer And Pumphouse Operator Chief Oncology 02/09/19 Eda Yost MD [address] [place] [address] Physician Radiation Oncology 07/06/19 Barrel Polisher Relationship Specialty Start Date End Date Becky Ireland APRN.ATMOSPHERIC CHEMIST [address] [place] [address] PCP - General Family Medicine 05/20/21 Maren Coffey, CHEIKH Scrubber Machine Tender 01/31/19 Shraddha House RN Specialty Transfer And Pumphouse Operator Chief Oncology 02/09/19 Eda Yost MD [address] [place] [address] Physician Radiation Oncology 07/06/19 Barrel Polisher Relationship Specialty Start Date End Date Becky Ireland, AUTO PORTER.ATMOSPHERIC CHEMIST [address] [place] [address] PCP - General Family Medicine 05/20/21 Maren Coffey, RN Scrubber Machine Tender 01/31/19 Shraddha House RN Specialty Transfer And Pumphouse Operator Chief Oncology 02/09/19 Eda Yost MD [address] [place] [address] Physician Radiation Oncology 07/06/19 Barrel Polisher Relationship Specialty Start Date End Date Becky Ireland AUTO PORTER.ATMOSPHERIC CHEMIST [address] [facility] [place] [address] PCP - General Family Medicine 05/20/21 Maren Coffey, RN Scrubber Machine Tender 01/31/19 Shraddha House RN Specialty Transfer And Pumphouse Operator Chief Oncology 02/09/19 Eda Yost MD [address] [facility] [place] [address] Physician Radiation Oncology 07/06/19 Barrel Polisher Relationship Specialty Start Date End Date Becky Ireland, AUTO PORTER.ATMOSPHERIC CHEMIST [address] [place] [address] PCP - General Family Medicine 05/20/21 Maren Coffey RN Scrubber Machine Tender 01/31/19 Shraddha House RN Specialty Transfer And Pumphouse Operator Chief Oncology 02/09/19 Eda Yost MD [address] [place] [place] [address] Physician Radiation Oncology 07/06/19 Barrel Polisher Relationship Specialty Start Date End Date Becky Ireland, AUTO PORTER.ATMOSPHERIC CHEMIST [address] [place] [address] PCP - General Family Medicine 05/20/21 Maren Coffey RN Scrubber Machine Tender 01/31/19 Shraddha House RN Specialty Transfer And Pumphouse Operator Chief Oncology 02/09/19 Eda Yost MD [address] [facility] [place] [address] Physician Radiation Oncology 07/06/19 Barrel Polisher Relationship Specialty Start Date End Date Becky Ireland, AUTO PORTER.ATMOSPHERIC CHEMIST [address] [place] [address] PCP - General Family Medicine 05/20/21 Maren Coffey RN Scrubber Machine Tender 01/31/19 Shraddha House RN Specialty Transfer And Pumphouse Operator Chief Oncology 02/09/19 Eda Yost MD [address] [place] [address] Physician Radiation Oncology 07/06/19 Barrel Polisher Relationship Specialty Start Date End Date Becky Ireland, AUTO PORTER.ATMOSPHERIC CHEMIST [address] [facility] [place] [address] PCP - General Family Medicine 05/20/21 Maren Coffey RN Scrubber Machine Tender 01/31/19 Shraddha House RN Specialty Transfer And Pumphouse Operator Chief Oncology 02/09/19 Eda Yost MD [address] [place] [address] Physician Radiation Oncology 07/06/19 Barrel Polisher Relationship Specialty Start Date End Date Becky Ireland, AUTO PORTER.ATMOSPHERIC CHEMIST [address] [facility] [place] [address] PCP - General Family Medicine 05/20/21 Maren Coffey RN Scrubber Machine Tender 01/31/19 Shraddha House RN Specialty Transfer And Pumphouse Operator Chief Oncology 02/09/19 Eda Yost MD [address] [place] [address] Physician Radiation Oncology 07/06/19 Barrel Polisher Relationship Specialty Start Date End Date Becky Ireland, AUTO PORTER.ATMOSPHERIC CHEMIST [address] [facility] [place] [address] PCP - General Family Medicine 05/20/21 Maren Coffey RN Scrubber Machine Tender 01/31/19 Shraddha House RN Specialty Transfer And Pumphouse Operator Chief Oncology 02/09/19 Eda Yost MD [address] [place] [address] Physician Radiation Oncology 07/06/19 Onelia John, AUTO PORTER.ATMOSPHERIC CHEMIST [address] [place] [address] Sales Development Specialist Family Medicine 09/25/24 Jignesh Root MD [address] [place] [address] Sales Development Specialist Family Medicine 09/25/24 Barrel Polisher Relationship Specialty Start Date End Date Becky Ireland, AUTO PORTER.ATMOSPHERIC CHEMIST [address] [place] [address] PCP - General Family Medicine 05/20/21 Maren Coffey, CHEIKH Scrubber Machine Tender 01/31/19 Shraddha House RN Specialty Transfer And Pumphouse Operator Chief Oncology 02/09/19 Eda Yost MD [address] [facility] [place] [address] Physician Radiation Oncology 07/06/19 Onelia John, AUTO PORTER.ATMOSPHERIC CHEMIST [address] [place] [address] Sales Development Specialist Family Medicine 09/25/24 Jignesh Root MD [address] [place] [address] Sales Development Specialist Family Medicine 09/25/24 Barrel Polisher Relationship Specialty Start Date End Date Becky Ireland, AUTO PORTER.ATMOSPHERIC CHEMIST [address] [place] [address] PCP - General Family Medicine 05/20/21 Maren Coffey, CHEIKH Scrubber Machine Tender 01/31/19 Shraddha House RN Specialty Transfer And Pumphouse Operator Chief Oncology 02/09/19 Eda Yost MD [address] [place] [address] Physician Radiation Oncology 07/06/19 Onelia John, AUTO PORTER.ATMOSPHERIC CHEMIST [address] [place] [address] Sales Development Specialist Family Medicine 09/25/24 Jignesh Root MD [address] [place] [address] [facility] 09/25/24 Barrel Polisher Relationship Specialty Start Date End Date Becky Ireland, AUTO PORTER.ATMOSPHERIC CHEMIST [address] [place] [address] PCP - General Family Medicine 05/20/21 Maren Coffey, RN Scrubber Machine Tender 01/31/19 Shraddha House RN Specialty Transfer And Pumphouse Operator Chief Oncology 02/09/19 Eda Yost MD [address] [place] [address] Physician Radiation Oncology 07/06/19 Onelia John, AUTO PORTER.ATMOSPHERIC CHEMIST [address] [place] [address] [facility] 09/25/24 Jignesh Root MD [address] [place] [address] [facility] 09/25/24 Barrel Polisher Relationship Specialty Start Date End Date Becky Ireland, AUTO PORTER.ATMOSPHERIC CHEMIST [address] [place] [address] PCP - General Family Medicine 05/20/21 Maren Coffey, RN Scrubber Machine Tender 01/31/19 Shraddha House RN Specialty Transfer And Pumphouse Operator Chief Oncology 02/09/19 Eda Yost MD [address] [place] [address] Physician Radiation Oncology 07/06/19 Onelia John AUTO PORTER.ATMOSPHERIC CHEMIST [address] [facility] [place] [address] Sales Development Specialist Family Medicine 09/25/24 Jignesh Root MD [address] [facility] [place] [address] Sales Development Specialist Family Medicine 09/25/24 Barrel Polisher Relationship Specialty Start Date End Date Becky Ireland APRN.ATMOSPHERIC CHEMIST [address] [place] [address] PCP - General Family Medicine 05/20/21 Maren Coffey, CHEIKH Scrubber Machine Tender 01/31/19 Shraddha House RN Specialty Transfer And Pumphouse Operator Chief Oncology 02/09/19 Eda Yost MD [address] [place] [address] Physician Radiation Oncology 07/06/19 Onelia John AUTO PORTER.ATMOSPHERIC CHEMIST [address] [facility] [place] [address] Sales Development Specialist Family Medicine 09/25/24 Jignesh Root MD [address] [facility] [place] [address] Sales Development Specialist Family Medicine 09/25/24 Barrel Polisher Relationship Specialty Start Date End Date Becky Ireland APRN.ATMOSPHERIC CHEMIST [address] [place] [address] PCP - General Family Medicine 05/20/21 Maren Coffey, RN Scrubber Machine Tender 01/31/19 Shraddha House, RN Specialty Transfer And Pumphouse Operator Chief Oncology 02/09/19 Eda Yost MD [address] [address] Physician Radiation Oncology 07/06/19 Onelia Jhon, AUTO PORTER.ATMOSPHERIC CHEMIST [address] [facility] [place] [address] Sales Development Specialist Family [facility] 09/25/24 Jignesh Root MD [address] [facility] [place] [address] [facility] 09/25/24 Barrel Polisher Relationship Specialty Start Date End Date Becky Ireland, AUTO PORTER.ATMOSPHERIC CHEMIST [address] [place] [address] PCP - General Family Medicine 05/20/21 Maren Coffey, RN Scrubber Machine Tender 01/31/19 Shraddha House RN Specialty Transfer And Pumphouse Operator Chief Oncology 02/09/19 Eda Yost MD [address] [place] [address] Physician Radiation Oncology 07/06/19 Onelia John, AUTO PORTER.ATMOSPHERIC CHEMIST [address] [facility] [place] [address] Sales Development Specialist Family [facility] 09/25/24 Jignesh Root MD [address] [facility] [place] [address] [facility] 09/25/24 Barrel Polisher Relationship Specialty Start Date End Date Becky Ireland APRN.ATMOSPHERIC CHEMIST [address] [place] [address] PCP - General Family Medicine 05/20/21 Maren Coffey, RN Scrubber Machine Tender 01/31/19 Shraddha House RN Specialty Transfer And Pumphouse Operator Chief Oncology 02/09/19 Eda Yost MD [address] [place] [address] Physician Radiation Oncology 07/06/19 Onelia John, AUTO PORTER.ATMOSPHERIC CHEMIST [address] [facility] [place] [address] [facility] 09/25/24 Jignesh Root MD [address] [facility] [place] [address] [facility] 09/25/24 Barrel Polisher Relationship Specialty Start Date End Date Becky Ireland, AUTO PORTER.ATMOSPHERIC CHEMIST [address] [place] [address] PCP - General Family Medicine 05/20/21 Maren Coffey, CHEIKH Scrubber Machine Tender 01/31/19 Shraddha House RN Specialty Transfer And Pumphouse Operator Chief Oncology 02/09/19 Eda Yost MD [address] [place] [address] Physician Radiation Oncology 07/06/19 Onelia John AUTO PORTER.ATMOSPHERIC CHEMIST [address] [facility] [place] [address] Sales Development Specialist Family Medicine 09/25/24 Jignesh Root MD [address] [facility] [place] [address] [facility] 09/25/24 Barrel Polisher Relationship Specialty Start Date End Date Becky Ireland APRN.ATMOSPHERIC CHEMIST [address] [facility] [place] [address] PCP - General Family Medicine 05/20/21 Maren Coffey, RN Scrubber Machine Tender 01/31/19 Shraddha House RN Specialty Transfer And Pumphouse Operator Chief Oncology 02/09/19 Eda Yost MD [address] [place] [address] Physician Radiation Oncology 07/06/19 Onelia John AUTO PORTER.ATMOSPHERIC CHEMIST [address] [facility] [place] [address] [facility] 09/25/24 Jignesh Root MD [address] [facility] [place] [address] [facility] 09/25/24 Barrel Polisher Relationship Specialty Start Date End Date Becky Ireland AUTO PORTER.ATMOSPHERIC CHEMIST [address] [facility] [place] [address] PCP - General Family Medicine 05/20/21 Maren Coffey, CHEIKH Scrubber Machine Tender 01/31/19 Shraddha House RN Specialty Transfer And Pumphouse Operator Chief Oncology 02/09/19 Eda Yost MD [address] [place] [address] Physician Radiation Oncology 07/06/19 Onelia John AUTO PORTER.ATMOSPHERIC CHEMIST [address] [place] [address] Sales Development Specialist Family Medicine 09/25/24 01/09/25 Jignesh Root MD [address] [place] [address] Sales Development Specialist Family [facility] 09/25/24 01/09/25 Barrel Polisher Relationship Specialty Start Date End Date Becky Ireland, AUTO PORTER.ATMOSPHERIC CHEMIST [address] [place] [address] PCP - General Family Medicine 05/20/21 Maren Coffey, CHEIKH Scrubber Machine Tender 01/31/19 Shraddha House RN Specialty Transfer And Pumphouse Operator Chief Oncology 02/09/19 Eda Yost MD [address] [place] [address] Physician Radiation Oncology 07/06/19 Barrel Polisher Relationship Specialty Start Date End Date Becky Ireland, AUTO PORTER.ATMOSPHERIC CHEMIST [address] [place] [address] PCP - General Family Medicine 05/20/21 Maren Coffey, RN Scrubber Machine Tender 01/31/19 Shraddha House RN Specialty Transfer And Pumphouse Operator Chief Oncology 02/09/19 Eda Yost MD [address] [place] [address] Physician Radiation Oncology 07/06/19 Barrel Polisher Relationship Specialty Start Date End Date Becky Ireland APRN.ATMOSPHERIC CHEMIST [address] [place] [address] PCP - General Family Medicine 05/20/21 Maren Coffey, RN Scrubber Machine Tender 01/31/19 Shraddha House RN Specialty Transfer And Pumphouse Operator Chief Oncology 02/09/19 Eda Yost MD [address] [place], [place] [address] Physician Radiation Oncology 07/06/19 Barrel Polisher Relationship Specialty Start Date End Date Becky Ireland APRN.ATMOSPHERIC CHEMIST [address] [facility] [place] [id number] PCP - General Family Medicine 05/20/21 Maren Coffey, RN Scrubber Machine Tender 01/31/19 Shraddha House RN Specialty Transfer And Pumphouse Operator Chief Oncology 02/09/19 Eda Yost MD [address] [place] [address] Physician Radiation Oncology 07/06/19 Team Status: Active Member Role Status Dates Becky Ireland PIN CHASER, PIN CHASER-C Primary Care Provider Active Team Status: Inactive Member Role Status Dates Becky Ireland PIN CHASER, PIN CHASER-C Primary Care Provider Active Start: December 15, 2024 End: December 21, 2024 Dr. Ajith Chavira MD Referring Provider Active Sta rt: December 15, 2024 End: December 21, 2024 Dr. Ajith Chavira MD Emergency Provider Active Sta rt: December 15, 2024 End: December 21, 2024 Dr. Mauricio Pavon DO Admit Provider Active Start: December 15, 2024 End: December 21, 2024 Dr. Mauricio Pavon DO Other Provider Active Start: December 15, 2024 End: December 21, 2024 Dr. Travis Muñoz MD Other Provider Active Start: December 15, 2024 End: December 21, 2024 Dr. Mauricio Chirinos MD Attending Provider Active Start: December 15, 2024 End: December 21, 2024 Dr. Gabriel Hernandez MD Other Provider Active Start: December 15, 2024 End: December 21, 2024 Team Status: Active Member Role Status Dates Becky Ireland NP, PIN CHASER-C Primary Care Provider Active Start: December 16, 2024 Dr. Ajith Chavira MD Emergency Provider Active Sta rt: December 16, 2024 Dr. Mauricio Pavon DO Admit Provider Active Start: December 16, 2024 Dr. Mauricio Pavon DO Other Provider Active Start: December 16, 2024 Dr. Gabriel Hernandez MD Attending Provider Active Start: December 16, 2024 Dr. Gabriel Hernandez MD Other Provider Active Start: December 16, 2024 Team Status: Active Member Role Status Dates Becky Ireland PIN CHASER, PIN CHASER-C Primary Care Provider Active Start: December 17, 2024 Dr. Ajith Chavira MD Emergency Provider Active Sta rt: December 17, 2024 Dr. Mauricio Pavon DO Admit Provider Active Start: December 17, 2024 Dr. Mauricio Pavon DO Other Provider Active Start: December 17, 2024 Dr. Gabriel Hernandez MD Attending Provider Active Start: December 17, 2024 Dr. Gabriel Hernandez MD Other Provider Active Start: December 17, 2024 Team Status: Active Member Role Status Dates Becky Ireland PIN CHASER, PIN CHASER-C Primary Care Provider Active Start: December 18, 2024 Dr. Ajith Chavira MD Emergency Provider Active Sta rt: December 18, 2024 Dr. Mauricio Pavon DO Admit Provider Active Start: December 18, 2024 Dr. Mauricio Pavon DO Other Provider Active Start: December 18, 2024 Dr. Gabriel Hernandez MD Attending Provider Active Start: December 18, 2024 Dr. Gabriel Hernandez MD Other Provider Active Start: December 18, 2024 Team Status: Active Member Role Status Dates Becky Ireland PIN CHASER, PIN CHASER-C Primary Care Provider Active Start: December 19, 2024 Dr. Ajith Chavira MD Emergency Provider Active Sta rt: December 19, 2024 Dr. Mauricio Pavon DO Admit Provider Active Start: December 19, 2024 Dr. Mauricio Pavon DO Other Provider Active Start: December 19, 2024 Dr. Gabriel Hernandez MD Attending Provider Active Start: December 19, 2024 Dr. Gabriel Hernandez MD Other Provider Active Start: December 19, 2024 Dr. Travis Muñoz MD Other Provider Active Start: December 19, 2024 Team Status: Active Member Role Status Dates Becky Ireland PIN CHASER, PIN CHASER-C Primary Care Provider Active Start: December 20, 2024 Dr. Ajith Chavira MD Emergency Provider Active Sta rt: December 20, 2024 Dr. Mauricio Pavon DO Admit Provider Active Start: December 20, 2024 Dr. Mauricio Pavon DO Other Provider Active Start: December 20, 2024 Dr. Gabriel Hernandez MD Attending Provider Active Start: December 20, 2024 Dr. Gabriel Hernandez MD Other Provider Active Start: December 20, 2024 Dr. Travis Muñoz MD Other Provider Active Start: December 20, 2024 Team Status: Active Member Role Status Dates Becky Ireland PIN CHASER, PIN CHASER-C Primary Care Provider Active Start: December 21, 2024 Dr. Ajith Chavira MD Emergency Provider Active Sta rt: December 21, 2024 Dr. Mauricio Pavon DO Admit Provider Active Start: December 21, 2024 Dr. Mauricio Pavon DO Other Provider Active Start: December 21, 2024 Dr. Travis Muñoz MD Other Provider Active Start: December 21, 2024 Dr. Mauricio Chirinos MD Attending Provider Active Start: December 21, 2024 Dr. Mauricio Chirinos MD Other Provider Active Star t: December 21, 2024 Dr. Gabriel Hernandez MD Other Provider Active Start: December 21, 2024 Team Status: Inactive Member Role Status Dates Becky Ireland PIN CHASER, PIN CHASER-C Primary Care Provider Active Start: December 27, 2024 End: December 27, 2024 Dr. Andrae Estrada MD Emergency Provider Active Start: December 27, 2024 End: December 27, 2024 Team Status: Inactive Member Role Status Dates Becky Ireland PIN CHASER, PIN CHASER-C Primary Care Provider Active Start: December 27, 2024 End: December 27, 2024 Dr. Andrae Estrada MD Attending Provider Active Start: December 27, 2024 End: December 27, 2024 Dr. Andrae Estrada MD Emergency Provider Active Start: December 27, 2024 End: December 27, 2024 Team Status: Inactive Member Role Status Dates Beckyjuvencio Ireland PIN CHASER, PIN CHASER-C Primary Care Provider Active Start: January 13, 2025 End: January 13, 2025 Dr. Rodrigue Arguello DO Referring Provider Active S tart: January 13, 2025 End: January 13, 2025 Dr. Rodrigue Arguello DO Emergency Provider Active S tart: January 13, 2025 End: January 13, 2025 Barrel Polisher Relationship Specialty Start Date End Date Becky Ireland APRN.ATMOSPHERIC CHEMIST [address] [facility] [place] [address] PCP - General Family Medicine 05/20/21 Maren Coffey, RN Scrubber Machine Tender 01/31/19 Shraddha House RN Specialty Transfer And Pumphouse Operator Chief Oncology 02/09/19 Eda Yost MD [address] [place] [address] Physician Radiation Oncology 07/06/19 Barrel Polisher Relationship Specialty Start Date End Date Becky Ireland, GEMMA.ATMOSPHERIC CHEMIST [address] [facility] [place] [address] PCP - General Family Medicine 05/20/21 Maren Coffey RN Scrubber Machine Tender 01/31/19 Shraddha House RN Specialty Transfer And Pumphouse Operator Chief Oncology 02/09/19 Eda Yost MD [address] [facility] [address] Physician Radiation Oncology 07/06/19 Barrel Polisher Relationship Specialty Start Date End Date Becky Ireland APRN.ATMOSPHERIC CHEMIST [address] [facility] [place] [address] PCP - General Family Medicine 05/20/21 Maren Coffey, RN Scrubber Machine Tender 01/31/19 Shraddha House RN Specialty Transfer And Pumphouse Operator Chief Oncology 02/09/19 Eda Yost MD [address] [place] [place] [address] Physician Radiation Oncology 07/06/19 Barrel Polisher Relationship Specialty Start Date End Date Becky Ireland APRN.ATMOSPHERIC CHEMIST [address] [place] [address] PCP - General Family Medicine 05/20/21 Maren Coffey, RN Scrubber Machine Tender 01/31/19 Shraddha House RN Specialty Transfer And Pumphouse Operator Chief Oncology 02/09/19 Eda Yost MD [address] [place] [address] Physician Radiation Oncology 07/06/19 Barrel Polisher Relationship Specialty Start Date End Date Becky Ireland APRN.ATMOSPHERIC CHEMIST [address] [place] [address] PCP - General Family Medicine 05/20/21 Maren Coffey, RN Scrubber Machine Tender 01/31/19 Shraddha House RN Specialty Transfer And Pumphouse Operator Chief Oncology 02/09/19 Eda Yost MD [address] [facility] [place] [address] Physician Radiation Oncology 07/06/19 Barrel Polisher Relationship Specialty Start Date End Date Becky Ireland APRN.ATMOSPHERIC CHEMIST [address] [place] [address] PCP - General Family Medicine 05/20/21 Maren Coffey, RN Scrubber Machine Tender 01/31/19 Shraddha House RN Specialty Transfer And Pumphouse Operator Chief Oncology 02/09/19 Eda Yost MD [address] [place] [address] Physician Radiation Oncology 07/06/19 Barrel Polisher Relationship Specialty Start Date End Date Becky Ireland AUTO PORTER.ATMOSPHERIC CHEMIST [address] [facility] [place] [address] PCP - General Family Medicine 05/20/21 Maren Coffey, CHEIKH Scrubber Machine Tender 01/31/19 Shraddha House RN Specialty Transfer And Pumphouse Operator Chief Oncology 02/09/19 Eda Yost MD [address] [place] [place] [address] Physician Radiation Oncology 07/06/19 Barrel Polisher Relationship Specialty Start Date End Date Becky Ireland, AUTO PORTER.ATMOSPHERIC CHEMIST [address] [facility] [place] [address] PCP - General Family Medicine 05/20/21 Maren Coffey RN Scrubber Machine Tender 01/31/19 Shraddha House RN Specialty Transfer And Pumphouse Operator Chief Oncology 02/09/19 Eda Yost MD [address] [place] [place] [address] Physician Radiation Oncology 07/06/19 Barrel Polisher Relationship Specialty Start Date End Date Becky Ireland, AUTO PORTER.ATMOSPHERIC CHEMIST [address] [facility] [place] [address] PCP - General Family Medicine 05/20/21 Maren Coffey RN Scrubber Machine Tender 01/31/19 Shraddha House RN Specialty Transfer And Pumphouse Operator Chief Oncology 02/09/19 Eda Yost MD [address] [place] [place] [address] Physician Radiation Oncology 07/06/19 Team Status: Inactive Member Role Status Dates Becky Ireland PIN CHASER, PIN CHASER-C Primary Care Provider Active Start: January 13, 2025 End: January 13, 2025 Dr. Rodrigue Arguello DO Attending Provider Active S tart: January 13, 2025 End: January 13, 2025 Dr. Rodrigue Arguello DO Referring Provider Active S tart: January 13, 2025 End: January 13, 2025 Dr. Rodrigue Arguello DO Emergency Provider Active S tart: January 13, 2025 End: January 13, 2025 Team Status: Inactive Member Role Status Dates Becky Ireland PIN CHASER, PIN CHASER-C Primary Care Provider Active Start: February 03, 2025 End: February 03, 2025 Becky Ireland PIN CHASER, PIN CHASER-C Referring Provider Active Start: February 03, 2025 End: February 03, 2025 CLOTILDE Galo Attending Provider Active Start: February 03, 2025 End: February 03, 2025 Team Status: Active Member Role Status Dates Becky Ireland PIN CHASER, PIN CHASER-C Primary Care Provider Active Start: February 09, 2025 CLOTILDE Meraz Attending Provider Active Start : February 09, 2025 CLOTILDE Meraz Referring Provider Active Start : February 09, 2025 Team Status: Inactive Member Role Status Dates Becky Ireland PIN CHASER, PIN CHASER-C Primary Care Provider Active Start: February 13, 2025 End: February 13, 2025 Becky Ireland PIN CHASER, PIN CHASER-C Referring Provider Active Start: February 13, 2025 End: February 13, 2025 Dr. Carlos Harrington DO Attending Provider Active Start: February 13, 2025 End: February 13, 2025 Team Status: Active Member Role Status Dates Becky Ireland PIN CHASER, PIN CHASER-C Primary Care Provider Active Start: February 13, 2025 Becky Ireland PIN CHASER, PIN CHASER-C Referring Provider Active Start: February 13, 2025 Dr. Carlos Harrington DO Attending Provider Active Start: February 13, 2025 Dr. Carlos Harrington DO Other Provider Active St art: February 13, 2025 Barrel Polisher Relationship Specialty Start Date End Date Becky Ireland APRN.ATMOSPHERIC CHEMIST [address] [place] [address] PCP - General Family Medicine 05/20/21 Maren Coffey, CHEIKH Scrubber Machine Tender 01/31/19 Shraddha House RN Specialty Transfer And Pumphouse Operator Chief Oncology 02/09/19 Eda Yost MD [address] [place] [address] Physician Radiation Oncology 07/06/19 Onelia John APRN.ATMOSPHERIC CHEMIST [address] [place] [address] Sales Development Specialist Family Medicine 09/25/24 01/09/25 Jignesh Root MD [address] [place] [address] Sales Development Specialist Family Medicine 09/25/24 01/09/25 Barrel Polisher Relationship Specialty Start Date End Date Becky Ireland APRN.ATMOSPHERIC CHEMIST [address] [place] [address] PCP - General Family Medicine 05/20/21 Maren Coffey, RN Scrubber Machine Tender 01/31/19 Shraddha House RN Specialty Transfer And Pumphouse Operator Chief Oncology 02/09/19 Eda Yost MD [address] [place] [address] Physician Radiation Oncology 07/06/19 Barrel Polisher Relationship Specialty Start Date End Date Becky Ireland APRN.ATMOSPHERIC CHEMIST [address] [place] [address] PCP - General Family Medicine 05/20/21 Maren Coffey RN Scrubber Machine Tender 01/31/19 Shraddha House RN Specialty Transfer And Pumphouse Operator Chief Oncology 02/09/19 Eda Yost MD [address] [place] [address] Physician Radiation Oncology 07/06/19 Onelia John AUTO PORTER.ATMOSPHERIC CHEMIST [address] [facility] [place] [address] Sales Development Specialist Family Medicine 09/25/24 01/09/25 Jignesh Root MD [address] [facility] [place] [address] Sales Development Specialist Family [facility] 09/25/24 01/09/25 Barrel Polisher Relationship Specialty Start Date End Date Becky Ireland AUTO PORTER.ATMOSPHERIC CHEMIST [address] [place] [address] PCP - General Family Medicine 05/20/21 Maren Coffey, CHEIKH Scrubber Machine Tender 01/31/19 Shraddha House RN Specialty Transfer And Pumphouse Operator Chief Oncology 02/09/19 Eda Yost MD [address] [address] Physician Radiation Oncology 07/06/19 Onelia John, AUTO PORTER.ATMOSPHERIC CHEMIST [address] [facility] [place] [address] Sales Development Specialist Family [facility] 09/25/24 01/09/25 Jignesh Root MD [address] [facility] [place] [address] Sales Development Specialist Family [facility] 09/25/24 01/09/25 Barrel Polisher Relationship Specialty Start Date End Date Becky Ireland, AUTO PORTER.ATMOSPHERIC CHEMIST [address] [place] [address] PCP - General Family Medicine 05/20/21 Maren Coffey, RN Scrubber Machine Tender 01/31/19 Shraddha House RN Specialty Transfer And Pumphouse Operator Chief Oncology 02/09/19 Eda Yost MD [address] [place] [address] Physician Radiation Oncology 07/06/19 Barrel Polisher Relationship Specialty Start Date End Date Becky Ireland AUTO PORTER.ATMOSPHERIC CHEMIST [address] [place] [address] PCP - General Family Medicine 05/20/21 Maren Coffey, RN Scrubber Machine Tender 01/31/19 Shraddha House RN Specialty Transfer And Pumphouse Operator Chief Oncology 02/09/19 Eda Yost MD [address] [address] Physician Radiation Oncology 07/06/19 Barrel Polisher Relationship Specialty Start Date End Date Becky Ireland, AUTO PORTER.ATMOSPHERIC CHEMIST [address] [place] [address] PCP - General Family Medicine 05/20/21 Maren Coffey, RN Scrubber Machine Tender 01/31/19 Shraddha House RN Specialty Transfer And Pumphouse Operator Chief Oncology 02/09/19 Eda Yost MD [address] [place] [address] Physician Radiation Oncology 07/06/19 Barrel Polisher Relationship Specialty Start Date End Date Becky Ireland, AUTO PORTER.ATMOSPHERIC CHEMIST [address] [facility] [place] [address] PCP - General Family Medicine 05/20/21 Maren Coffey, RN Scrubber Machine Tender 01/31/19 Shraddha House RN Specialty Transfer And Pumphouse Operator Chief Oncology 02/09/19 Eda Yost MD [address] [place] [address] Physician Radiation Oncology 07/06/19 Barrel Polisher Relationship Specialty Start Date End Date Becky Ireland APRN.CNP [address] [place] [address] PCP - General Family Medicine 05/20/21 Maren Coffey, RN Scrubber Machine Tender 01/31/19 Shraddha House RN Specialty Transfer And Pumphouse Operator Chief Oncology 02/09/19 Ead Yost MD [address] [address] Physician Radiation Oncology 07/06/19 Team Status: Active Member Role/Relationship Status Dates Becky Ireland PIN CHASER, PIN CHASER-C Primary Care Provider Active Team Status: Inactive Member Role/Relationship Status Dates Becky Ireland PIN CHASER, PIN CHASER-C Primary Care Provider Active Start: January 13, 2025 End: January 13, 2025 Dr. Rodrigue Arguello DO Attending Provider Active S tart: January 13, 2025 End: January 13, 2025 Dr. Rodrigue Arguello DO Referring Provider Active S tart: January 13, 2025 End: January 13, 2025 Dr. Rodrigue Arguello DO Emergency Provider Active S tart: January 13, 2025 End: January 13, 2025 Team Status: Inactive Member Role/Relationship Status Dates Becky Ireland PIN CHASER, PIN CHASER-C Primary Care Provider Active Start: February 03, 2025 End: February 03, 2025 Becky Ireland PIN CHASER, PIN CHASER-C Referring Provider Active Start: February 03, 2025 End: February 03, 2025 CLOTILDE Galo Attending Provider Active Start: February 03, 2025 End: February 03, 2025 Team Status: Inactive Member Role/Relationship Status Dates Becky Ireland PIN CHASER, PIN CHASER-C Primary Care Provider Active Start: February 13, 2025 End: February 13, 2025 Becky Ireland PIN CHASER, PIN CHASER-C Referring Provider Active Start: February 13, 2025 End: February 13, 2025 Dr. Carlos Harrington DO Attending Provider Active Start: February 13, 2025 End: February 13, 2025 Team Status: Active Member Role/Relationship Status Dates Becky Ireland PIN CHASER, PIN CHASER-C Primary Care Provider Active Start: February 13, 2025 Becky Ireland NP, PIN CHASER-C Referring Provider Active Start: February 13, 2025 Dr. Carlos Harrington , Attending Provider Active Start: February 13, 2025 Dr. Carlos Harrington , Other Provider Active St art: February 13, 2025 Team Status: Inactive Member Role/Relationship Status Dates Becky Ireland PIN CHASER, PIN CHASER-C Primary Care Provider Active Start: February 15, 2025 End: February 15, 2025 CLOTILDE Meraz Attending Provider Active Start : February 15, 2025 End: February 15, 2025 CLOTILDE Meraz Referring Provider Active Start : February 15, 2025 End: February 15, 2025 Team Status: Inactive Member Role/Relationship Status Dates Becky Ireland PIN CHASER, PIN CHASER-C Primary Care Provider Active Start: May 08, 2025 End: May 08, 2025 Becky Ireland NP, PIN CHASER-C Referring Provider Active Start: May 08, 2025 End: May 08, 2025 Dr. Nydia Bains MD Attending Provider Active Start: May 08, 2025 End: May 08, 2025 Source Comments (unrecognize d section and content) In the event this informatio n is protected by the Federal Confidentiality of Alcohol and Drug Abuse Patient Records regulations: The Federal rules restrict any use of the information to criminally investigate or prosecute any alcohol or drug abuse patient.[facility] CenterIn the event this information is protected by the Federal Confidentiality of Alcohol and Drug Abuse Patient Records regulations: The Federal rules restrict any use of the information to criminally investigate or prosecute any alcohol or drug abuse patient.[facility] CenterIn the event this information is protected by the Federal Confidentiality of Alcohol and Drug Abuse Patient Records regulations: The Federal rules restrict any use of the information to criminally investigate or prosecute any alcohol or drug abuse patient.[facility] CenterIn the event this information is protected by the Federal Confidentiality of Alcohol and Drug Abuse Patient Records regulations: The Federal rules restrict any use of the information to criminally investigate or prosecute any alcohol or drug abuse patient.[facility] CenterIn the event this information is protected by the Federal Confidentiality of Alcohol and Drug Abuse Patient Records regulations: The Federal rules restrict any use of the information to criminally investigate or prosecute any alcohol or drug abuse patient.[facility] CenterIn the event this information is protected by the Federal Confidentiality of Alcohol and Drug Abuse Patient Records regulations: The Federal rules restrict any use of the information to criminally investigate or prosecute any alcohol or drug abuse patient.[facility] CenterIn the event this information is protected by the Federal Confidentiality of Alcohol and Drug Abuse Patient Records regulations: The Federal rules restrict any use of the information to criminally investigate or prosecute any alcohol or drug abuse patient.[facility] CenterIn the event this information is protected by the Federal Confidentiality of Alcohol and Drug Abuse Patient Records regulations: The Federal rules restrict any use of the information to criminally investigate or prosecute any alcohol or drug abuse patient.[facility] CenterIn the event this information is protected by the Federal Confidentiality of Alcohol and Drug Abuse Patient Records regulations: The Federal rules restrict any use of the information to criminally investigate or prosecute any alcohol or drug abuse patient.[facility] CenterIn the event this information is protected by the Federal Confidentiality of Alcohol and Drug Abuse Patient Records regulations: The Federal rules restrict any use of the information to criminally investigate or prosecute any alcohol or drug abuse patient.[facility] CenterIn the event this information is protected by the Federal Confidentiality of Alcohol and Drug Abuse Patient Records regulations: The Federal rules restrict any use of the information to criminally investigate or prosecute any alcohol or drug abuse patient.[facility] CenterIn the event this information is protected by the Federal Confidentiality of Alcohol and Drug Abuse Patient Records regulations: The Federal rules restrict any use of the information to criminally investigate or prosecute any alcohol or drug abuse patient.[facility] CenterIn the event this information is protected by the Federal Confidentiality of Alcohol and Drug Abuse Patient Records regulations: The Federal rules restrict any use of the information to criminally investigate or prosecute any alcohol or drug abuse patient.[facility] CenterIn the event this information is protected by the Federal Confidentiality of Alcohol and Drug Abuse Patient Records regulations: The Federal rules restrict any use of the information to criminally investigate or prosecute any alcohol or drug abuse patient.[facility] CenterIn the event this information is protected by the Federal Confidentiality of Alcohol and Drug Abuse Patient Records regulations: The Federal rules restrict any use of the information to criminally investigate or prosecute any alcohol or drug abuse patient.[facility] CenterIn the event this information is protected by the Federal Confidentiality of Alcohol and Drug Abuse Patient Records regulations: The Federal rules restrict any use of the information to criminally investigate or prosecute any alcohol or drug abuse patient.[facility] CenterIn the event this information is protected by the Federal Confidentiality of Alcohol and Drug Abuse Patient Records regulations: The Federal rules restrict any use of the information to criminally investigate or prosecute any alcohol or drug abuse patient.[facility] CenterIn the event this information is protected by the Federal Confidentiality of Alcohol and Drug Abuse Patient Records regulations: The Federal rules restrict any use of the information to criminally investigate or prosecute any alcohol or drug abuse patient.[facility] CenterIn the event this information is protected by the Federal Confidentiality of Alcohol and Drug Abuse Patient Records regulations: The Federal rules restrict any use of the information to criminally investigate or prosecute any alcohol or drug abuse patient.[facility] CenterIn the event this information is protected by the Federal Confidentiality of Alcohol and Drug Abuse Patient Records regulations: The Federal rules restrict any use of the information to criminally investigate or prosecute any alcohol or drug abuse patient.[facility] CenterIn the event this information is protected by the Federal Confidentiality of Alcohol and Drug Abuse Patient Records regulations: The Federal rules restrict any use of the information to criminally investigate or prosecute any alcohol or drug abuse patient.[facility] CenterIn the event this information is protected by the Federal Confidentiality of Alcohol and Drug Abuse Patient Records regulations: The Federal rules restrict any use of the information to criminally investigate or prosecute any alcohol or drug abuse patient.[facility] CenterIn the event this information is protected by the Federal Confidentiality of Alcohol and Drug Abuse Patient Records regulations: The Federal rules restrict any use of the information to criminally investigate or prosecute any alcohol or drug abuse patient.[facility] CenterIn the event this information is protected by the Federal Confidentiality of Alcohol and Drug Abuse Patient Records regulations: The Federal rules restrict any use of the information to criminally investigate or prosecute any alcohol or drug abuse patient.[facility] CenterIn the event this information is protected by the Federal Confidentiality of Alcohol and Drug Abuse Patient Records regulations: The Federal rules restrict any use of the information to criminally investigate or prosecute any alcohol or drug abuse patient.[facility] CenterIn the event this information is protected by the Federal Confidentiality of Alcohol and Drug Abuse Patient Records regulations: The Federal rules restrict any use of the information to criminally investigate or prosecute any alcohol or drug abuse patient.[facility] CenterIn the event this information is protected by the Federal Confidentiality of Alcohol and Drug Abuse Patient Records regulations: The Federal rules restrict any use of the information to criminally investigate or prosecute any alcohol or drug abuse patient.[facility] CenterIn the event this information is protected by the Federal Confidentiality of Alcohol and Drug Abuse Patient Records regulations: The Federal rules restrict any use of the information to criminally investigate or prosecute any alcohol or drug abuse patient.[facility] CenterIn the event this information is protected by the Federal Confidentiality of Alcohol and Drug Abuse Patient Records regulations: The Federal rules restrict any use of the information to criminally investigate or prosecute any alcohol or drug abuse patient.[facility] CenterIn the event this information is protected by the Federal Confidentiality of Alcohol and Drug Abuse Patient Records regulations: The Federal rules restrict any use of the information to criminally investigate or prosecute any alcohol or drug abuse patient.[facility] CenterIn the event this information is protected by the Federal Confidentiality of Alcohol and Drug Abuse Patient Records regulations: The Federal rules restrict any use of the information to criminally investigate or prosecute any alcohol or drug abuse patient.[facility] CenterIn the event this information is protected by the Federal Confidentiality of Alcohol and Drug Abuse Patient Records regulations: The Federal rules restrict any use of the information to criminally investigate or prosecute any alcohol or drug abuse patient.[facility] CenterIn the event this information is protected by the Federal Confidentiality of Alcohol and Drug Abuse Patient Records regulations: The Federal rules restrict any use of the information to criminally investigate or prosecute any alcohol or drug abuse patient.[facility] CenterIn the event this information is protected by the Federal Confidentiality of Alcohol and Drug Abuse Patient Records regulations: The Federal rules restrict any use of the information to criminally investigate or prosecute any alcohol or drug abuse patient.[facility] CenterIn the event this information is protected by the Federal Confidentiality of Alcohol and Drug Abuse Patient Records regulations: The Federal rules restrict any use of the information to criminally investigate or prosecute any alcohol or drug abuse patient.[facility] CenterIn the event this information is protected by the Federal Confidentiality of Alcohol and Drug Abuse Patient Records regulations: The Federal rules restrict any use of the information to criminally investigate or prosecute any alcohol or drug abuse patient.[facility] CenterIn the event this information is protected by the Federal Confidentiality of Alcohol and Drug Abuse Patient Records regulations: The Federal rules restrict any use of the information to criminally investigate or prosecute any alcohol or drug abuse patient.[facility] CenterIn the event this information is protected by the Federal Confidentiality of Alcohol and Drug Abuse Patient Records regulations: The Federal rules restrict any use of the information to criminally investigate or prosecute any alcohol or drug abuse patient.[facility] CenterIn the event this information is protected by the Federal Confidentiality of Alcohol and Drug Abuse Patient Records regulations: The Federal rules restrict any use of the information to criminally investigate or prosecute any alcohol or drug abuse patient.[facility] CenterIn the event this information is protected by the Federal Confidentiality of Alcohol and Drug Abuse Patient Records regulations: The Federal rules restrict any use of the information to criminally investigate or prosecute any alcohol or drug abuse patient.[facility] CenterIn the event this information is protected by the Federal Confidentiality of Alcohol and Drug Abuse Patient Records regulations: The Federal rules restrict any use of the information to criminally investigate or prosecute any alcohol or drug abuse patient.[facility] CenterIn the event this information is protected by the Federal Confidentiality of Alcohol and Drug Abuse Patient Records regulations: The Federal rules restrict any use of the information to criminally investigate or prosecute any alcohol or drug abuse patient.[facility] CenterIn the event this information is protected by the Federal Confidentiality of Alcohol and Drug Abuse Patient Records regulations: The Federal rules restrict any use of the information to criminally investigate or prosecute any alcohol or drug abuse patient.[facility] CenterIn the event this information is protected by the Federal Confidentiality of Alcohol and Drug Abuse Patient Records regulations: The Federal rules restrict any use of the information to criminally investigate or prosecute any alcohol or drug abuse patient.[facility] CenterIn the event this information is protected by the Federal Confidentiality of Alcohol and Drug Abuse Patient Records regulations: The Federal rules restrict any use of the information to criminally investigate or prosecute any alcohol or drug abuse patient.[facility] CenterIn the event this information is protected by the Federal Confidentiality of Alcohol and Drug Abuse Patient Records regulations: The Federal rules restrict any use of the information to criminally investigate or prosecute any alcohol or drug abuse patient.[facility] CenterIn the event this information is protected by the Federal Confidentiality of Alcohol and Drug Abuse Patient Records regulations: The Federal rules restrict any use of the information to criminally investigate or prosecute any alcohol or drug abuse patient.[facility] CenterIn the event this information is protected by the Federal Confidentiality of Alcohol and Drug Abuse Patient Records regulations: The Federal rules restrict any use of the information to criminally investigate or prosecute any alcohol or drug abuse patient.[facility] CenterIn the event this information is protected by the Federal Confidentiality of Alcohol and Drug Abuse Patient Records regulations: The Federal rules restrict any use of the information to criminally investigate or prosecute any alcohol or drug abuse patient.[facility] CenterIn the event this information is protected by the Federal Confidentiality of Alcohol and Drug Abuse Patient Records regulations: The Federal rules restrict any use of the information to criminally investigate or prosecute any alcohol or drug abuse patient.[facility] CenterIn the event this information is protected by the Federal Confidentiality of Alcohol and Drug Abuse Patient Records regulations: The Federal rules restrict any use of the information to criminally investigate or prosecute any alcohol or drug abuse patient.[facility] CenterIn the event this information is protected by the Federal Confidentiality of Alcohol and Drug Abuse Patient Records regulations: The Federal rules restrict any use of the information to criminally investigate or prosecute any alcohol or drug abuse patient.[facility] CenterIn the event this information is protected by the Federal Confidentiality of Alcohol and Drug Abuse Patient Records regulations: The Federal rules restrict any use of the information to criminally investigate or prosecute any alcohol or drug abuse patient.[facility] CenterIn the event this information is protected by the Federal Confidentiality of Alcohol and Drug Abuse Patient Records regulations: The Federal rules restrict any use of the information to criminally investigate or prosecute any alcohol or drug abuse patient.[facility] CenterIn the event this information is protected by the Federal Confidentiality of Alcohol and Drug Abuse Patient Records regulations: The Federal rules restrict any use of the information to criminally investigate or prosecute any alcohol or drug abuse patient.[facility] CenterIn the event this information is protected by the Federal Confidentiality of Alcohol and Drug Abuse Patient Records regulations: The Federal rules restrict any use of the information to criminally investigate or prosecute any alcohol or drug abuse patient.[facility] CenterIn the event this information is protected by the Federal Confidentiality of Alcohol and Drug Abuse Patient Records regulations: The Federal rules restrict any use of the information to criminally investigate or prosecute any alcohol or drug abuse patient.[facility] CenterIn the event this information is protected by the Federal Confidentiality of Alcohol and Drug Abuse Patient Records regulations: The Federal rules restrict any use of the information to criminally investigate or prosecute any alcohol or drug abuse patient.[facility] CenterIn the event this information is protected by the Federal Confidentiality of Alcohol and Drug Abuse Patient Records regulations: The Federal rules restrict any use of the information to criminally investigate or prosecute any alcohol or drug abuse patient.[facility] CenterIn the event this information is protected by the Federal Confidentiality of Alcohol and Drug Abuse Patient Records regulations: The Federal rules restrict any use of the information to criminally investigate or prosecute any alcohol or drug abuse patient.[facility] CenterIn the event this information is protected by the Federal Confidentiality of Alcohol and Drug Abuse Patient Records regulations: The Federal rules restrict any use of the information to criminally investigate or prosecute any alcohol or drug abuse patient.[facility] CenterIn the event this information is protected by the Federal Confidentiality of Alcohol and Drug Abuse Patient Records regulations: The Federal rules restrict any use of the information to criminally investigate or prosecute any alcohol or drug abuse patient.[facility] CenterIn the event this information is protected by the Federal Confidentiality of Alcohol and Drug Abuse Patient Records regulations: The Federal rules restrict any use of the information to criminally investigate or prosecute any alcohol or drug abuse patient.[facility] CenterIn the event this information is protected by the Federal Confidentiality of Alcohol and Drug Abuse Patient Records regulations: The Federal rules restrict any use of the information to criminally investigate or prosecute any alcohol or drug abuse patient.[facility] CenterIn the event this information is protected by the Federal Confidentiality of Alcohol and Drug Abuse Patient Records regulations: The Federal rules restrict any use of the information to criminally investigate or prosecute any alcohol or drug abuse patient.[facility] CenterIn the event this information is protected by the Federal Confidentiality of Alcohol and Drug Abuse Patient Records regulations: The Federal rules restrict any use of the information to criminally investigate or prosecute any alcohol or drug abuse patient.[facility] CenterIn the event this information is protected by the Federal Confidentiality of Alcohol and Drug Abuse Patient Records regulations: The Federal rules restrict any use of the information to criminally investigate or prosecute any alcohol or drug abuse patient.[facility] CenterIn the event this information is protected by the Federal Confidentiality of Alcohol and Drug Abuse Patient Records regulations: The Federal rules restrict any use of the information to criminally investigate or prosecute any alcohol or drug abuse patient.[facility] FOR RECORDS PERTAINING TO PATIENTS WHO ARE OR HAVE BEEN ENROLLED IN A CHEMICAL DEPENDENCY/SUBSTANCEABUSE PROGRAM, SOME INFORMATION MAY BE OMITTED. This clinical summary was aggregated from multiple sources. Caution should be exercised in using it in the provision of clinical care. This summary normalizes information from multiple sources, and as a consequence, information in this document may materially change the coding, format and clinical context of patient data. In addition, data may be omitted in some cases. CLINICAL DECISIONS SHOULD BE BASED ON THE PRIMARY CLINICAL RECORDS. [facility] provides no warranty or guarantee of the accuracy or completeness of information in this document.
[2025-05-12 09:08] LABS: HPV APTIMA, High Risk Negative (Negative)
== END | disposition home or self-care (01) ==
LOC: LABSPEC 15:53
PROVIDERS: PCP Registered Nurse; Referring Provider Obstetrics & Gynecology; Visit Provider Obstetrics & Gynecology
DX: Z12.4 Encounter for screening for malignant neoplasm of cervix (principal); D84.9 Immunodeficiency, unspecified
CPT/HCPCS: 87624; 88175; G0145